=== PATIENT | male | born 1945 | race Caucasian/White ===

== ENCOUNTER 2019-10-09 14:23 | Outpatient (CLI) | payer MEDICARE, SELFPAY ==
--- NOTE | ~2019-10-09 | XR_ITS ---
EXAMINATION: XR chest 2V EXAM DATE: 10/09/2019 14:51 INDICATION: Cough. TECHNIQUE: Frontal and lateral projections of the chest obtained and reviewed. Comparison is made to prior examination from 12/23/2015. FINDINGS: The lungs are clear. There are no pleural effusions. The cardiomediastinal silhouette is within normal limits. There is no pneumothorax suspected. The bones and soft tissues are unremarkab le. There is aortic arterial sclerosis. There is no significant interval change. IMPRESSION: No acute cardiopulmonary findings. Reviewed, dictated and finalized at location A.
== END 2019-10-09 14:24 | disposition home or self-care (01) ==
LOC: ANHIMG 14:31
PROVIDERS: PCP Internal Medicine; Visit Provider Nurse Practitioner
DX: R05 Cough (principal)
CPT/HCPCS: 71046

== ENCOUNTER 2022-02-16 11:32 | Outpatient (CLI) | payer MEDICARE, SELFPAY ==
[2022-02-16 18:41] LABS: Hematocrit 37.3 % (42.0-52.0); Hemoglobin 12.5 g/dL (14.0-18.0); Mean Corpuscular HGB Conc 33.5 g/dl (32-36); Mean Corpuscular Volume 89.4 fl (80-100); Mean Platelet Volume 10.6 fl (7.4-10.4); Platelet Count Result 217 k/mm3 (150-375); Red Blood Count 4.17 M/mm3 (4.6-6.20); Red Cell Distribution Width 12.7 % (11.5-14.5); White Blood Count 10.3 K/mm3 (4.5-10.0)
[2022-02-16 19:14] LABS: Anion Gap 11 mmol/L (8-16); Blood Urea Nitrogen 21 mg/dL (9-20); Calcium 7.9 mg/dL (8.4-10.2); Carbon Dioxide 26 mmol/L (22-30); Chloride 102 mmol/L (98-107); Estimated Glomerular Filt Rate 45; Glucose 184 mg/dL (65-110); Potassium 4.2 mmol/L (3.4-5.0); Sodium 139 mmol/L (137-145)
== END 2022-02-16 11:33 | disposition home or self-care (01) ==
PROVIDERS: PCP Internal Medicine; Visit Provider Internal Medicine
DX: I10 Essential (primary) hypertension (principal); E11.22 Type 2 diabetes mellitus with diabetic chronic kidney disease
CPT/HCPCS: 36415; 80048; 83036; 85027

== ENCOUNTER 2022-06-16 11:19 | Outpatient (CLI) | payer MEDICARE, SELFPAY ==
[2022-06-16 18:10] LABS: Alanine Aminotransferase 16 U/L (6-50); Albumin Level 3.6 g/dL (3.5-5.1); Alkaline Phosphatase 62 U/L (38-126); Anion Gap 5 mmol/L (8-16); Aspartate Amino Transferase 25 U/L (17-59); Bilirubin,Total 0.5 mg/dL (0.2-1.3); Blood Urea Nitrogen 26 mg/dL (9-20); Calcium 7.7 mg/dL (8.4-10.2); Carbon Dioxide 28 mmol/L (22-30); Chloride 105 mmol/L (98-107); Estimated Glomerular Filt Rate 39; Glucose 90 mg/dL (65-110); Potassium 4.3 mmol/L (3.4-5.0); Sodium 138 mmol/L (137-145)
[2022-06-16 19:01] LABS: Basophils Absolute Auto 0.1 K/mm3 (0.0-0.1); Eosinophils Absolute Auto 0.6 K/mm3 (0-0.3); Eosinophils Percent Auto 4.8 % (0-4.4); Hematocrit 38.9 % (42.0-52.0); Immature Granulocyte Absolute 0.13 K/mm3 (0.00-0.031); Immature Granulocyte Percent A 1.1 % (0-0.5); Lymphocytes Absolute Auto 1.96 K/mm3 (0.9-3.2); Lymphocytes Percent Auto 16.9 % (18.3-44.2); Mean Corpuscular HGB Conc 33.4 g/dl (32-36); Mean Corpuscular Hemoglobin 29.5 pg (26-34); Mean Corpuscular Volume 88.4 fl (80-100); Mean Platelet Volume 9.9 fl (7.4-10.4); Monocytes Absolute Auto 1.1 K/mm3 (0.1-0.6); Monocytes Percent Auto 9.2 % (2.6-8.5); Neutrophils Absolute Auto 7.7 K/mm3 (1.3-6.7); Platelet Count Result 231 k/mm3 (150-375); Red Cell Distribution Width 13.1 % (11.5-14.5); White Blood Count 11.6 K/mm3 (4.5-10.0)
[2022-06-16 21:46] LABS: Hemoglobin A1C 6.8 % (<5.7)
== END 2022-06-16 11:20 | disposition home or self-care (01) ==
LOC: ANHGOSHLAB 11:21
PROVIDERS: PCP Internal Medicine; Visit Provider Internal Medicine
DX: D64.9 Anemia, unspecified (principal); E11.22 Type 2 diabetes mellitus with diabetic chronic kidney disease
CPT/HCPCS: 36415; 80053; 82728; 83036; 85025

== ENCOUNTER 2023-05-08 10:34 | Inpatient (IN) | payer MEDICARE, SELFPAY ==
[2023-05-08] VITALS (12 sets, daily range): BP systolic 138–164; BP diastolic 60–76; PULSE 89–105; RESP 16–27; TEMP 36.4; O2SAT 94–100; BMI 22.4
--- NOTE | ~2023-05-08 | US_ITS ---
EXAMINATION:US venous doppler LE BI INDICATION:Elevated d-dimer TECHNIQUE: Multiple grayscale, color flow and Doppler images of the right and left lower extremity de ep venous systems were obtained and reviewed. COMPARISON:No prior studies for comparison. FINDINGS: The common femoral, superficial femoral and popliteal veins demonstrate normal respiratory variation, augmentation and compressibility. Color flow is also seen within the posterior tibial, pe roneal, greater saphenous and profunda veins. IMPRESSION: 1: No lower extremity deep venous thrombosis. Reviewed, dictated and finalized at location B. EL ASSEMBLER
--- NOTE | ~2023-05-08 | NM_ITS ---
EXAMINATION: NM lung vent and perfusion DATE: 05/09/2023 12:47 INDICATION: Chest pain and dyspnea TECHNIQUE: 25.9 mCi xenon-133 by inhalation and 5 mCi Tc-99m MAA by intravenous route. Scintigraphic images of the chest were obtained. COMPARISON: FINDINGS: There is homogeneous radiotracer activity throughout the lungs on the single breath ventilation seque nce. Small perfusion defect at the anterior segment of the right upper lobe. No other perfusion defec ts identified Otherwise relatively homogeneous perfusion throughout the lungs. IMPRESSION: 1. Low probability for pulmonary embolism. Reviewed, dictated and finalized at location A. ARCHITECT
--- NOTE | ~2023-05-08 | XR_ITS ---
EXAMINATION: XR chest 2V DATE: 05/08/2023 11:12 INDICATION: Chest pain, cough and dyspnea TECHNIQUE: frontal and lateral views of the chest were obtained. COMPARISON: Chest radiograph dated 10/09/2019 FINDINGS: Diffuse increased interstitial pattern in the bilateral mid and lower lung zones with a few periphera l Huber B-lines near the costophrenic angles consistent with mild pulmonary edema.. Small bilateral pleural effusions with blunting at the costophrenic angles. Small nodular calcification at the left c ostophrenic angle which could represent either a cause, consultation or sequela of old granulomatous disease. No pneumothorax. The cardiomediastinal silhouette is normal. Chronic mild anterior wedging o f a midthoracic vertebral body with moderate thoracic spondylosis. IMPRESSION: 1. Mild pulmonary edema in the bilateral mid and lower lung zones and very small bilateral pleural ef fusions. Reviewed, dictated and finalized at location A. RIALS ASSISTANT IMPRESSION: 1. Mild pulmonary edema in the bilateral mid and lower lung zones and very smal l bilateral pleural effusions.
--- NOTE | ~2023-05-08 | XR_ITS ---
XR chest 1V portable 05/09/2023 09:23 Indication: Chest pain Procedure: AP portable chest Comparison: Comparison to multiple prior studies sequentially, with oldest reviewed study dated 02/2012. Findings: Heart size normal. Bilateral interstitial infiltrates with peribronchial thickening. No sig nificant effusion. No pneumothorax. Impression: 1: Bilateral interstitial infiltrates with peribronchial thickening which may represent edema or pneu monia. Reviewed, dictated and finalized at location B. INSTALLER Impression: 1: Bilateral interstitial infiltrates with peribronchial thickening which may r epresent edema or pneumonia.
--- NOTE | ~2023-05-08 | US_ITS ---
EXAMINATION: US renal BI DATE: 05/09/2023 20:44 INDICATION: Acute kidney injury. TECHNIQUE: Multiple ultrasound grayscale images of the kidneys were obtained. COMPARISON: None. FINDINGS: The right kidney measures 10.5 x 4.4 x 4.0 cm. The left kidney measures 9.0 x 4.8 x 4.1 cm. The kidne ys demonstrate normal parenchymal echogenicity. There is no hydronephrosis. The bladder is normal. IMPRESSION: 1. Normal kidneys. No hydronephrosis. Reviewed, dictated and finalized at location E. ANICAL INTEGRITY SPECIALIST
--- NOTE | 2023-05-08 10:38 | ECG_ITS ---
Measurements Intervals [place] Rate: 112 P: 57 HI: 96 QRS: 22 QRSD: 102 T: 66 QT: 320 QTc: 438 Interpretive Statements SINUS TACHYCARDIA WITH SHORT HI INTERVAL WANDERING BASELINE ARTIFACT POSSIBLE LEFT ATRIAL ENLARGEMENT [-0.1mV P WAVE IN V1/V2] NONSPECIFIC ST & T-WAVE ABNORMALITY ABNORMAL ECG NO PREVIOUS ECG AVAILABLE FOR COMPARISON Electronically Signed On 05-08-2023 12:11:17 TRIPE SCRAPER by Jaime Tee M.D.
--- NOTE | 2023-05-08 11:17 | ED.CHESTPAIN ---
HPI - Chest Pain General Chief Complaint: Chest Pain <Indio Carlson APRN - Last Filed: 05/08/23 16:43> Stated Complaint: dyspnea/cp <Indio Carlson APRN - Last Filed: 05/08/23 16:43> Time Seen by Provider: 05/08/23 11:16 <Indio Carlson APRN - Last Filed: 05/08/23 16:43> Source: patient <Indio Carlson APRN - Last Filed: 05/08/23 16:43> Mode of arrival: ambulatory <Indio Carlson APRN - Last Filed: 05/08/23 16:43> Limitations: no limitations <Indio Carlson APRN - Last Filed: 05/08/23 16:43> History of Present Illness HPI narrative: Silvano is a 78-year-old male patient presenting to the ER today with complaints of midsternal chest pain and shortness of breath. He reports that the symptoms have been going on for 2 days. Rates the pain 7/10 currently. States that the pain does come and go and is sharp in nature. SpO2 on room air is 90% to 95%. Has productive cough with house phlegm. Denies any known fever or chills. <Indio Carlson APRN - Last Filed: 05/08/23 16:43> Related Data Home Medications: Home Medications Medication Instructions Recorded Confirmed aspirin 81 mg tablet,delayed 81 mg PO DAILY 12/04/19 06/21/22 release (Adult Low Dose Aspirin) <Indio Carlson APRN - Last Filed: 05/08/23 16:43> Allergies/Adverse Reactions: Allergies Allergy/AdvReac Type Severity Reaction Status Date / Time No Known Allergies Allergy Unknown Verified 06/21/22 11:40 <Indio Carlson APRN - Last Filed: 05/08/23 16:43> Review of Systems Review of Systems: Pertinent positives per HPI. Patient denies any fever, chills, rash, headache, visual changes, dizziness, runny nose, sore throat, palpitations, nausea, vomiting, diarrhea, constipation, abdominal pain, or any urinary issues. 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, without long-term current use of insulin Diabetes mellitus with chronic kidney disease, without long-term current use of insulin Elevated serum creatinine Hyperlipidemia due to dietary fat intake Hypertension Peripheral artery disease Renal artery stenosis Stroke 05/12/2007 10/17/2016 02/12/2019 <Indio Carlson APRN - Last Filed: 05/08/23 16:43> Surgical History Surgical History: Surgical History History of tonsillectomy <Indio Carlson APRN - Last Filed: 05/08/23 16:43> Family History Family History: Family History (Updated 05/08/23 @ 17:00 by Aby Lester RN) Mother Family history of diabetes mellitus in first degree relative Cerebrovascular accident Father Family history of emphysema Sibling Family history of malignant neoplasm <Indio Carlson APRN - Last Filed: 05/08/23 16:43> Social History Social History: Social History Smoking packs per day: 0.25 Smoking cigarettes per day: 5.0 Years smoked: 50 Smoking pack-years: 12.50 Smoking status: Current some day smoker Alcohol intake: never Substance use: never Lack of Transportation: No Lack of Food: Never True Current Housing: I Have Housing Concerned About Future Housing: No Difficulty Paying Gas/Electric Bills: No Difficulty Paying for Meds: No Currently Unemployed: No Education: High School Diploma/GED Difficulty w/ Childcare or Family Care: YES Spiritual care concerns: No <Indio Carlson APRN - Last Filed: 05/08/23 16:43> Comments At the time of my signature, I reviewed and agree with the nursing past medical, surgical, social, and family history. There is no
[2023-05-08] MEDS: IPRATROPIUM BR 0.02% INH SOLN 0.5 MG/2.5 ML VIAL INHALATION (11:39)
[2023-05-08] MEDS: ALBUTEROL SULFATE NEB 2.5 MG/3 ML INH INHALATION (11:40)
[2023-05-08 11:45] LABS: Basophils Absolute Auto 0.1 K/mm3 (0.0-0.1); Basophils Percent Auto 0.7 % (0.2-1.2); Eosinophils Absolute Auto 0.1 K/mm3 (0-0.3); Eosinophils Percent Auto 0.3 % (0-4.4); Hematocrit 41.5 % (42.0-52.0); Hemoglobin 13.5 g/dL (14.0-18.0); Immature Granulocyte Absolute 0.12 K/mm3 (0.00-0.031); Immature Granulocyte Percent A 0.7 % (0-0.5); Lymphocytes Absolute Auto 0.74 K/mm3 (0.9-3.2); Lymphocytes Percent Auto 4.5 % (18.3-44.2); Mean Corpuscular HGB Conc 32.5 g/dl (32-36); Mean Corpuscular Hemoglobin 29.2 pg (26-34); Mean Corpuscular Volume 89.8 fl (80-100); Mean Platelet Volume 10.3 fl (7.4-10.4); Monocytes Absolute Auto 1.3 K/mm3 (0.1-0.6); Monocytes Percent Auto 8.1 % (2.6-8.5); Neutrophils Absolute Auto 14.1 K/mm3 (1.3-6.7); Neutrophils Percent Auto 85.7 % (45.5-73.1); Platelet Count Result 289 k/mm3 (150-375); Red Blood Count 4.62 M/mm3 (4.6-6.20); Red Cell Distribution Width 13.4 % (11.5-14.5); White Blood Count 16.4 K/mm3 (4.5-10.0)
[2023-05-08 11:55] LABS: Alanine Aminotransferase 16 U/L (6-50); Albumin Level 4.3 g/dL (3.5-5.1); Alkaline Phosphatase 72 U/L (38-126); Anion Gap 13 mmol/L (8-16); Aspartate Amino Transferase 22 U/L (17-59); Bilirubin,Total 0.8 mg/dL (0.2-1.3); Blood Urea Nitrogen 33 mg/dL (9-20); Calcium 8.7 mg/dL (8.4-10.2); Carbon Dioxide 18 mmol/L (22-30); Chloride 106 mmol/L (98-107); Estimated CRCL calculation 22 ml/min; Estimated Glomerular Filt Rate 28; Glucose 156 mg/dL (65-110); Lipase 138 U/L (23-300); Potassium 4.5 mmol/L (3.4-5.0); Sodium 137 mmol/L (137-145)
[2023-05-08 11:58] LABS: Prothrombin Time 13.7 Seconds (11.1-14.7)
[2023-05-08] MEDS: ASPIRIN 81 MG CHEWABLE TABLET 324 MG PO (11:58)
[2023-05-08 12:08] LABS: D Dimer 1.12 ug/mL (<0.48)
[2023-05-08 12:13] LABS: Troponin I 0.392 ng/mL (0.000-0.034)
[2023-05-08 12:14] LABS: NT Pro B Type Natriuretic Pept 6630 pg/mL (19.9-100)
[2023-05-08] MEDS: NITROGLYCERIN OINTMENT 1 INCH DOSE TRANSDERM (12:26)
[2023-05-08] MEDS: FUROSEMIDE INJ 40 MG/4 ML VIAL IV PUSH (12:57)
[2023-05-08 15:46] LABS: Troponin I 0.754 ng/mL (0.000-0.034)
--- NOTE | 2023-05-08 16:25 | ECG_ITS ---
Measurements Intervals [place] Rate: 104 P: 55 SC: 124 QRS: 16 QRSD: 101 T: 234 QT: 334 QTc: 441 Interpretive Statements SINUS TACHYCARDIA POSSIBLE LEFT ATRIAL ENLARGEMENT [-0.1mV P WAVE IN V1/V2] LEFT VENTRICULAR HYPERTROPHY WITH SECONDARY REPOLARIZATION ABNORMALITY ABNORMAL ECG COMPARED TO ECG 05/08/2023 10:42:31 NO SIGNIFICANT CHANGES Electronically Signed On 05-09-2023 13:06:31 FIRE TRUCK DRIVER by Cody Arreaga M.D.
--- NOTE | 2023-05-08 16:32 | PC.NURSE ---
Repeat EKG done at [address] Erivn.
--- NOTE | 2023-05-08 16:44 | ADMGEN ---
This patient, Silvano Duval, was admitted to IMU Room 214-01. Patient/family oriented to hospital policies and general routines including ID bracelet, bed and alarms, visiting hours, pain management, procedures, bathroom and other care routines, personal items, smoking policy, room service/diet, and visiting hours. Information on how to activate the Rapid Response Team has been discussed. Patient/Family are encouraged to report perceived risks to care and to ask questions if they do not understand what they are told or what they should do.
[2023-05-08] MEDS: HEPARIN SODIUM 5,000 UNITS/ML VIAL 4000 UNITS IV PUSH (17:40)
[2023-05-08] MEDS: HEPARIN SOD/D5W 100 UNITS/ML 25,000 UNITS/250 ML BAG 8 UNITS IV CONT (17:41)
[2023-05-08 18:22] LABS: Partial Thromboplastin Time 30.1 SECONDS (22.3-36.8)
--- NOTE | 2023-05-08 18:28 | PM.IMHP ---
H&P: HPI History of Present Illness Date/Time: 05/08/23 16:45 Chief Complaint: Chest pain and shortness of breath. Narrative: This is a very pleasant 78-year-old male smoker with history of stroke, peripheral vascular disease, chronic kidney disease, type 2 diabetes mellitus, hypertension, and hyperlipidemia who presented to the emergency department via private vehicle for evaluation of chest pain and shortness of breath. The patient provides the following history. Two nights ago while lying in bed trying to fall asleep he developed a tightness in the mid chest region associated with mild shortness of breath. His symptoms lasted several hours before resolving. He has had a couple of similar episodes occur since that time and it seems to occur mostly when he is lying down. He has also noted edema of the lower legs over the past 1 week or so. Today his symptoms seem to be worse and lasted longer than 4 so he came in for evaluation. He denies syncope, near syncope, pleuritic pain, resting shortness of breath, nausea, vomiting, sweats, and calf pain. He was afebrile on arrival with stable vital signs. Labs were significant for a WBC count of 16.4, creatinine 2.30, troponin 0.392, proBNP 6630. Chest x-ray showed mild pulmonary edema and small effusions. EKG shows sinus tachycardia with short UT interval and some nonspecific T-wave abnormalities. He was given aspirin 324 mg, furosemide 40 mg IV, and he has been started on heparin drip. At the time my evaluation he is resting comfortably and has no complaints. On review of his medications it looks like he had previously been prescribed carvedilol, clopidogrel, and atorvastatin however he stopped taking no several months ago as he thought he was on too many medications. Review of Systems Review of Systems: Twelve systems were reviewed. No fever, chills, or sweats. He has a mild cough that is not productive. No sinus congestion or sore throat. Denies sensations of racing heart and palpitations. No recent travel. No history of venous thromboembolism. He has chronic claudication which is unchanged. No resting extremity pain, paresthesias, skin color, or temperature changes. Except as documented, all other systems were reviewed and are negative. [facility] Past Medical History Medical History (Updated 05/08/23 @ 23:43 by Keena Ortiz PA-C) Anxiety Carotid stenosis Chronic kidney disease Hyperlipidemia due to dietary fat intake Hypertension Peripheral artery disease Renal artery stenosis Stroke 05/12/2007 10/17/2016 02/12/2019 Tobacco dependence Type 2 diabetes mellitus Surgical History Surgical History History of tonsillectomy Family History Family History Mother Family history of diabetes mellitus in first degree relative Cerebrovascular accident Father Family history of emphysema Sibling Family history of malignant neoplasm Social History Social History (Updated 05/08/23 @ 23:40 by Keena Ortiz PA-C) Social History: Surrogate medical decision maker: Cheryl Duval, spouse. Code status: Full code. Smoking packs per day: 0.25 Smoking cigarettes per day: 5.0 Years smoked: 50 Smoking pack-years: 12.50 Smoking status: Current some day smoker Alcohol intake: never Substance use: never Lack of Transportation: No Lack of Food: Never True Current Housing: I Have Housing Concerned About Future Housing: No Difficulty Paying Gas/Electric Bills: No Difficulty Paying for Meds: No Currently Unemployed: No Education: High School Diploma/GED Difficulty w/ Childcare or Family Care: YES Spiritual care concerns: No Meds Home Medications and Allergies Home Medications Medication Instructions Recorded Confirmed Type aspirin 81 mg tablet,delayed 81 mg PO DAILY 12/04/19 05/08/23 History release (Adult Low Dose Aspirin) nolano
[2023-05-08 19:42] LABS: Glucose Point of Care 168 mg/dl (65-105)
[2023-05-08 21:00] LABS: Hemoglobin A1C 6.5 % (<5.7)
[2023-05-09] VITALS (15 sets, daily range): BP systolic 131–153; BP diastolic 56–68; PULSE 85–108; RESP 16–24; TEMP 36.2–36.9; O2SAT 92–98
[2023-05-09 00:29] LABS: Partial Thromboplastin Time 44.4 SECONDS (22.3-36.8)
[2023-05-09] MEDS: CLOPIDOGREL BISULFATE 75 MG TABLET PO ×2 (01:03→20:45)
[2023-05-09] MEDS: HEPARIN SODIUM 5,000 UNITS/ML VIAL 4000 UNITS IV PUSH (01:05)
[2023-05-09 07:03] LABS: Basophils Absolute Auto 0.1 K/mm3 (0.0-0.1); Basophils Percent Auto 0.5 % (0.2-1.2); Eosinophils Absolute Auto 0.1 K/mm3 (0-0.3); Hematocrit 35.9 % (42.0-52.0); Hemoglobin 12.1 g/dL (14.0-18.0); Immature Granulocyte Absolute 0.07 K/mm3 (0.00-0.031); Immature Granulocyte Percent A 0.6 % (0-0.5); Lymphocytes Absolute Auto 0.97 K/mm3 (0.9-3.2); Lymphocytes Percent Auto 7.7 % (18.3-44.2); Mean Corpuscular HGB Conc 33.7 g/dl (32-36); Mean Corpuscular Volume 89.1 fl (80-100); Mean Platelet Volume 10.4 fl (7.4-10.4); Monocytes Absolute Auto 1.4 K/mm3 (0.1-0.6); Monocytes Percent Auto 10.9 % (2.6-8.5); Neutrophils Percent Auto 79.3 % (45.5-73.1); Platelet Count Result 260 k/mm3 (150-375); Red Blood Count 4.03 M/mm3 (4.6-6.20); Red Cell Distribution Width 13.3 % (11.5-14.5); White Blood Count 12.6 K/mm3 (4.5-10.0)
[2023-05-09 07:19] LABS: Alanine Aminotransferase 14 U/L (6-50); Albumin Level 3.5 g/dL (3.5-5.1); Alkaline Phosphatase 57 U/L (38-126); Anion Gap 12 mmol/L (8-16); Aspartate Amino Transferase 32 U/L (17-59); Bilirubin,Total 0.8 mg/dL (0.2-1.3); Blood Urea Nitrogen 38 mg/dL (9-20); Calcium 8.1 mg/dL (8.4-10.2); Carbon Dioxide 20 mmol/L (22-30); Chloride 104 mmol/L (98-107); Estimated CRCL calculation 21 ml/min; Estimated Glomerular Filt Rate 26; Glucose 67 mg/dL (65-110); Magnesium 1.6 mg/dL (1.6-2.3); Potassium 3.7 mmol/L (3.4-5.0); Sodium 136 mmol/L (137-145)
[2023-05-09 08:33] LABS: Glucose Point of Care 46 mg/dl (65-105)
[2023-05-09] MEDS: PERFLUTREN LIPID MICROSPHERES 1.5 ML VIAL DILUTED TO 10 ML TOTAL VOLUME IV PUSH (08:52)
--- NOTE | 2023-05-09 08:52 | PC.NURSE ---
Pt SOB with expiratory wheeze. Senia RT made aware - sheet writer requested PRN Albuterol inhaler to be given. O2 91% on 2L NC. Increased to 4L NC. BG 46, 4 oz of apple juice given. Rates chest pressure to left side 7/10. Describes as moderate pain verses severe that worsens with activity. Mag 1.6. Detailed message left with Dr. Tee. Detailed message left with Magdalena Novak, [facility] provider.
[2023-05-09] MEDS: ALBUTEROL SULFATE (*SP) AEROSOL 1 PUFF 2 PUFF INHALATION (08:55)
--- NOTE | 2023-05-09 09:07 | ECG_ITS ---
Measurements Intervals [place] Rate: 107 P: 64 IN: 104 QRS: 21 QRSD: 106 T: 148 QT: 333 QTc: 445 Interpretive Statements SINUS TACHYCARDIA WITH SHORT IN INTERVAL LEFT VENTRICULAR HYPERTROPHY WITH SECONDARY REPOLARIZATION ABNORMALITY ABNORMAL ECG COMPARED TO ECG 05/08/2023 16:25:50 NO SIGNIFICANT CHANGES Electronically Signed On 05-09-2023 15:14:08 STUDENT SERVICES REPRESENTATIVE by Cody Arreaga M.D.
[2023-05-09] MEDS: NITROGLYCERIN SL 0.4 MG TABLET SUBLINGUAL (09:19)
[2023-05-09 09:20] LABS: Glucose Point of Care 91 mg/dl (65-105)
[2023-05-09] MEDS: MAGNESIUM SULF 2 GM/WATER 50ML 2 GM/50 ML BAG IVPB (09:20)
--- NOTE | 2023-05-09 09:31 | PC.NURSE ---
Symptoms discussed with Dinah Wyman NP and Magdalena Singh, [facility] provider. Subliqual nitro x 1 given. Chest pain rated 0/10. EKG and CXR completed. Wheeze not no longer audible while standing at bedside.
[2023-05-09] MEDS: TAMSULOSIN HCL 0.4 MG CAPSULE PO (09:38)
[2023-05-09] MEDS: FLUTICASONE PROPIONATE 0.05% NA SPR 16 GM BTL (*BKC) 2 SPRAY NASAL (09:38)
[2023-05-09] MEDS: amLODIPine BESYLATE 5 MG TABLET 10 MG PO (09:38)
[2023-05-09] MEDS: ASPIRIN 81 MG ENTERIC TABLET PO (09:38)
[2023-05-09] MEDS: PANTOPRAZOLE 40 MG TABLET PO (09:38)
--- NOTE | 2023-05-09 09:50 | PM.CNCAR ---
Assessment and Plan Assessment and plan (1) Non-ST elevation myocardial infarction (NSTEMI): Code(s): I21.4 - Non-ST elevation (NSTEMI) myocardial infarction Status: Acute Assessment and Plan: Presents with acute onset of chest pain and shortness of breath. His troponin levels are elevated at 0.392, 0.754, and 1.270. EKG shows some evidence of lateral ischemia with ST depression in leads V4 through V6. His chest pain is nitro responsive and he is currently chest pain free. Ultimately, plan to proceed with coronary angiogram when he is able to lie flat and ideally with renal function looking a bit better. For now, will manage medically.. Continue heparin drip Continue aspirin, statin, Plavix Start Toprol XL 25mg daily Nitro paste Check echo Continue telemetry Check BMP this afternoon He is currently clinically stable and free from chest pain. If he has recurrent pain or becomes hemodynamically unstable then we can proceed to cardiac cath today with the understanding that his renal function may worsen with contrast administration. Will give 1 dose of IV furosemide now. Currently unable to lay flat because of orthopnea, so not an appropriate candidate for cath today. Hopefully will be appropriate for coronary angiogram tomorrow (2) Congestive heart failure: Code(s): I50.9 - Heart failure, unspecified Status: Acute Assessment and Plan: Presents with shortness of breath and has evidence of CHF on chest X-ray. Was given one dose of IV furosemide in the emergency department and reports subsequent improvement of breathing. Will give another dose of IV furosemide now. May require further diuresis but careful balance with renal function. Check BMP this afternoon and again in the morning Echo pending. Further recommendations to follow. (3) Bewhx-cu-whjzvhq kidney injury: Code(s): N17.9 - Acute kidney failure, unspecified; N18.9 - Chronic kidney disease, unspecified Status: Acute Assessment and Plan: Acute kidney injury with stage III CKD. (4) Hypertension: Code(s): I10 - Essential (primary) hypertension Status: Acute Assessment and Plan: Above goal currently but holding home lisinopril because of ALLEN. Added metoprolol a above. Further adjustments can be made depending on renal function (5) Hypomagnesemia: Code(s): E83.42 - Hypomagnesemia Status: Acute Assessment and Plan: 2g IV Mag x 1. Repeat Mag with a.m. labs History of Present Illness History of Present Illness Consult date/time: 05/09/23 09:32 Requesting physician: Indio Carlson APRN Consult reason: chest pain and shortness of breath Reason For Visit: nstemi,chf,kidney failure Narrative: Silvano Duval is a 78-year-old patient with type 2 diabetes, carotid occlusion, peripheral arterial disease, atrial fibrillation, hyperlipidemia, and renal artery stenosis. He also has a history of stroke in 2008 and has some residual left-sided weakness. He is hospitalized now because of sudden onset of chest pain shortness of breath on Tuesday. Patient states he developed shortness of breath and midsternal chest tightness on Tuesday evening when he lay down for bed. Symptoms persisted for a couple of hours, therefore, he proceeded to the emergency department. His chest pain resolved in the emergency department with administration of nitroglycerin. Since that time, he had a couple of intermittent episodes of shortness of breath and chest discomfort when attempting to lie down flat. This morning, he had another episode of acute chest pain with left-sided chest pain he rated as 7/10 and worsening shortness of breath. His chest pain once again resolved with administration of sublingual nitroglycerin. At the time I am seeing him, he denies any chest pain but does still have some mild shortness of breath. He denies any known cardiac history including coronary artery disease, conge
[2023-05-09] MEDS: FUROSEMIDE INJ 40 MG/4 ML VIAL 20 MG IV PUSH ×2 (11:15→17:12)
[2023-05-09 11:17] LABS: Anion Gap 10 mmol/L (8-16); Blood Urea Nitrogen 39 mg/dL (9-20); Calcium 8.4 mg/dL (8.4-10.2); Carbon Dioxide 22 mmol/L (22-30); Chloride 103 mmol/L (98-107); Estimated CRCL calculation 21 ml/min; Estimated Glomerular Filt Rate 26; Glucose 80 mg/dL (65-110); Potassium 4.3 mmol/L (3.4-5.0); Sodium 135 mmol/L (137-145)
[2023-05-09] MEDS: NITROGLYCERIN OINTMENT 1 INCH DOSE TRANSDERM ×2 (11:17→17:13)
--- NOTE | 2023-05-09 12:05 | IVDEFINITY ---
Prior to administration of IV Definity the patient was educated on the risks and benefits of the imaging enhancing agent including potential adverse side effects. The patient verbalized understanding. Allergies were verified. No exclusion criteria were identified and at least one of the following inclusion criteria were met: 1) physician request, 2) patient technically difficult to image (per the [place] [employer]chocardi[employer] guidelines of two or more segments not discernable within the apical view), or 3) questionable left ventricular function. ?
[2023-05-09 12:43] LABS: Glucose Point of Care 74 mg/dl (65-105)
[2023-05-09 13:12] LABS: Anion Gap 11 mmol/L (8-16); Blood Urea Nitrogen 39 mg/dL (9-20); Calcium 8.6 mg/dL (8.4-10.2); Carbon Dioxide 23 mmol/L (22-30); Chloride 102 mmol/L (98-107); Estimated CRCL calculation 21 ml/min; Estimated Glomerular Filt Rate 26; Glucose 100 mg/dL (65-110); Partial Thromboplastin Time 57.2 SECONDS (22.3-36.8); Potassium 4.1 mmol/L (3.4-5.0); Sodium 136 mmol/L (137-145)
--- NOTE | 2023-05-09 14:25 | PC.NURSE ---
Heparin protocol states to give 3000 units of Heparin for PTT 55-70 seconds. Order for 2,500 units in chart. Magdalena Novak made aware. Order modified, 2,500 units changed to 3,000 units for PTT between 55-70 seconds.
--- NOTE | 2023-05-09 14:57 | PM.IMPN ---
Progress Note: A&P Assessment and Plan (1) Non-ST elevation myocardial infarction (NSTEMI): Code(s): I21.4 - Non-ST elevation (NSTEMI) myocardial infarction Status: Acute Assessment and Plan: EKG showed some nonspecific ST T-wave changes and his troponin has been trending upwards. History concerning for underlying coronary artery disease though pulmonary embolism is considered. V/Q scan low prob for PE currently on a heparin drip, will transition as appropriate PER CARDIO: Continue aspirin, statin, Plavix Start Toprol XL 25mg daily Nitro paste Check echo Continue telemetry Serial BMP He is currently clinically stable and free from chest pain. If he has recurrent pain or becomes hemodynamically unstable then we can proceed to cardiac cath today with the understanding that his renal function may worsen with contrast administration. s/p dose of IV furosemide (2) Congestive heart failure: Code(s): I50.9 - Heart failure, unspecified Status: Acute Assessment and Plan: cardiology consulted: May require further diuresis but careful balance with renal function. serial BMP Echo pending. Further recommendations to follow. (3) Cylrz-tc-jzlqvus kidney injury: Code(s): N17.9 - Acute kidney failure, unspecified; N18.9 - Chronic kidney disease, unspecified Status: Acute Assessment and Plan: Monitor strict I/O. Renal ultrasound ordered. All medications will be renally dosed. (4) Type 2 diabetes mellitus: Code(s): E11.9 - Type 2 diabetes mellitus without complications Status: Chronic Assessment and Plan: Hold glipizide given worsening renal function. Initiate sliding scale insulin, Accu-Cheks, and hypoglycemic protocol. (5) Hypertension: Code(s): I10 - Essential (primary) hypertension Status: Chronic Assessment and Plan: hold lisinopril, continue metoprolol as ordered Subjective Date/time seen: 05/09/23 14:57 Interval history: Patient was in acute stress upon exam this morning. He was reporting worsening of his left sided chest pressure and tachypneic. He was requiring additional oxygen and quite uncomfortable. Cardiology consulted SISSY and followed recommendations for treatment and evaluation as noted in A&P. VQ scan done to rule out PE, which showed low probability of PE. US Doppler to rule out DVT have not resulted yet, will continue heparin drip and transition pending results. ECHO ordered. Unable to lay back comfortably so cardiology does not feel appropriate for cath today, will re-evaluate tomorrow. Need to improve kidney function prior to further testing. He is now more comfortable, will continue to closely monitor and follow cardiology for further treatment. Review of Systems Review of Systems: Twelve systems were reviewed. No fever, chills, or sweats. He has a mild cough that is not productive. No sinus congestion or sore throat. Denies sensations of racing heart and palpitations. No recent travel. No history of venous thromboembolism. He has chronic claudication which is unchanged. No resting extremity pain, paresthesias, skin color, or temperature changes. Except as documented, all other systems were reviewed and are negative. Exam Narrative: General: Well-developed, nontoxic-appearing male sitting up in bed in acute distress at time of exam. HEENT: Normocephalic, atraumatic. Wearing corrective lenses. PERRL, EOMI. Sclera anicteric. Oral mucosa moist. Neck: Supple. No JVD. Respiratory: Respirations are labored and tachy. Course crackles heard at the bases, with expiratory wheezing. Cardiovascular: Tachy with S1-S2. Chest: No tenderness to palpation over the chest wall. Gastrointestinal: Abdomen is soft, nontender, and nondistended with positive bowel sounds. Skin: Warm and dry. No rash or lesions on limited exam. Extremities: No cyanosis or clubbing. 1+ lower extremity edema, sof
[2023-05-09] MEDS: HEPARIN SODIUM 5,000 UNITS/ML VIAL 3000 UNITS IV PUSH ×2 (15:14→21:48)
--- NOTE | 2023-05-09 15:15 | PC.NURSE ---
Patient back from imaging with heparin gtt infusing. No distress noted. Denies chest pain at this time.
[2023-05-09] MEDS: ATORVASTATIN 40 MG TABLET PO (17:14)
[2023-05-09] MEDS: HEPARIN SOD/D5W 100 UNITS/ML 25,000 UNITS/250 ML BAG 12 UNITS IV CONT (17:15)
[2023-05-09 17:21] LABS: Glucose Point of Care 121 mg/dl (65-105)
[2023-05-09 20:37] LABS: Glucose Point of Care 134 mg/dl (65-105)
[2023-05-09 21:41] LABS: Partial Thromboplastin Time 65.2 SECONDS (22.3-36.8)
--- NOTE | 2023-05-09 23:47 | ECHO_ITS ---
Patient Info Name: Silvano Duval Age: 78 years : 1945 Gender: Male Ht: 66 in Wt: 139 lbs BSA: 1.72 m2 HR: 101 bpm BP: 151 / 68 mmHg Heart Rhythm: Tachycardia Technical Quality: Fair Exam Date: 05/09/2023 8:23 AM Exam Location: Echo Lab Patient Status: Inpatient Admit Date: 05/08/2023 Staff Ordering Physician: Keena Ortiz PA-C Porcelain Mixer: Manda Dong RDCS Attending Provider: David Solorio MD Referring Physician: Angel OCONNELL; Exam Type: CA echo dop color flow w con Study Info Indications - NON STEMI Complete two-dimensional, color flow and Doppler transthoracic echocardiogram is performed with contrast to opacify the left ventricle and to improve the deliniation of the left ventricle endocardial borders. Contrast/Agitated Saline Contrast/Ag. Saline: Definity Amount: 2.00 ml Administered By: Manda Dong RDCS Existing IV Access: Yes IV Access Condition: patent with no signs of infiltration Summary 1. Definity contrast used to improve exam quality. 2. Mild global left ventricular systolic dysfunction ejection fraction 40-45%. 3. Moderate concentric left ventricular hypertrophy. 4. Sclerotic but nonstenotic aortic valve. 5. Compared with examination from 2017 left ventricular systolic function is reduced. Left Ventricle Left ventricular chamber dimension is mildly enlarged. Left ventricular systolic function is mildly reduced, estimated at 40-45%. There is moderate concentric increased left ventricular wall thickness. The left ventricular diastolic function is grade I diastolic dysfunction. Right Ventricle Right ventricular chamber dimension is normal. Left Atria Left atrial chamber dimension is mildly enlarged. Right Atria Right atrial chamber dimension is normal. Aortic Valve The aortic valve is trileaflet. There is mild aortic valve sclerosis. Pulmonic Valve The pulmonic valve is not well visualized. Mitral Valve The mitral valve has normal leaflets. Tricuspid Valve The tricuspid valve leaflets are not well visualized. Pericardium/Pleural The pericardium appears normal. Aorta The aortic root size at the sinus of Valsalva is normal. Left Ventricular Outflow Tract Name Value Normal LVOT 2D LVOT Diameter 1.97 cm LVOT Doppler LVOT Peak Gradient 3 mmHg LVOT Mean Gradient 1 mmHg LVOT VTI 14.58 cm LVOT VTI/AV VTI Ratio 0.55 LVOT Stroke Volume 44.48 ml LVOT CO 4.82 l/min LVOT CI 2.81 L/min/m2 Pulmonic Valve Name Value Normal RVOT Doppler RVOT Peak Gradient 4 mmHg PV Doppler PV Peak Gradient 7 mmHg Mitral Valve ------
[2023-05-10] VITALS (19 sets, daily range): BP systolic 137–152; BP diastolic 53–70; PULSE 71–97; RESP 16–20; TEMP 36.5–37.1; O2SAT 89–98
[2023-05-10] MEDS: NITROGLYCERIN OINTMENT 1 INCH DOSE TRANSDERM ×5 (01:55→23:55)
[2023-05-10 05:29] LABS: Hematocrit 35.8 % (42.0-52.0); Hemoglobin 11.6 g/dL (14.0-18.0); Mean Corpuscular HGB Conc 32.4 g/dl (32-36); Mean Corpuscular Hemoglobin 29.4 pg (26-34); Mean Corpuscular Volume 90.6 fl (80-100); Mean Platelet Volume 10.6 fl (7.4-10.4); Platelet Count Result 228 k/mm3 (150-375); Red Blood Count 3.95 M/mm3 (4.6-6.20); Red Cell Distribution Width 13.4 % (11.5-14.5); White Blood Count 11.7 K/mm3 (4.5-10.0)
[2023-05-10 05:37] LABS: Magnesium 2.2 mg/dL (1.6-2.3)
[2023-05-10 05:43] LABS: Anion Gap 10 mmol/L (8-16); Blood Urea Nitrogen 44 mg/dL (9-20); Calcium 7.9 mg/dL (8.4-10.2); Carbon Dioxide 22 mmol/L (22-30); Chloride 103 mmol/L (98-107); Estimated CRCL calculation 20 ml/min; Estimated Glomerular Filt Rate 25; Glucose 101 mg/dL (65-110); Potassium 3.8 mmol/L (3.4-5.0); Sodium 135 mmol/L (137-145)
[2023-05-10 05:49] LABS: Partial Thromboplastin Time 176.4 SECONDS (22.3-36.8)
[2023-05-10] MEDS: ASPIRIN 81 MG ENTERIC TABLET PO (08:51)
--- NOTE | 2023-05-10 08:51 | PM.IMPN ---
Progress Note: A&P Assessment and Plan (1) Non-ST elevation myocardial infarction (NSTEMI): Code(s): I21.4 - Non-ST elevation (NSTEMI) myocardial infarction Status: Acute Assessment and Plan: EKG showed some nonspecific ST T-wave changes and his troponin has been trending upwards. History concerning for underlying coronary artery disease though pulmonary embolism is considered. V/Q scan low prob for PE currently on a heparin drip, will transition as appropriate PER CARDIO: Continue aspirin, statin, Plavix Start Toprol XL 25mg daily Nitro paste Check echo Continue telemetry Serial BMP He is currently clinically stable and free from chest pain. If he has recurrent pain or becomes hemodynamically unstable then we can proceed to cardiac cath today with the understanding that his renal function may worsen with contrast administration. s/p dose of IV furosemide 05/10: Will see if cards wants to diuresis again today. No cath today d/t renal function. (2) Congestive heart failure: Code(s): I50.9 - Heart failure, unspecified Status: Acute Assessment and Plan: cardiology consulted: May require further diuresis but careful balance with renal function. serial BMP Echo pending. Further recommendations to follow 05/10: ECHO results as followed, Summary ? 1. Definity contrast used to improve exam quality. ? 2. Mild global left ventricular systolic dysfunction ejection fraction 40-45%. ? 3. Moderate concentric left ventricular hypertrophy. ? 4. Sclerotic but nonstenotic aortic valve. ? 5. Compared with examination from 2017 left ventricular systolic function is reduced. (3) Ecxcf-eg-qhnoagw kidney injury: Code(s): N17.9 - Acute kidney failure, unspecified; N18.9 - Chronic kidney disease, unspecified Status: Acute Assessment and Plan: Monitor strict I/O. Renal ultrasound ordered. All medications will be renally dosed. 05/10: Slight increase of 2.5 from 2.4 after diuresis. (4) Type 2 diabetes mellitus: Code(s): E11.9 - Type 2 diabetes mellitus without complications Status: Chronic Assessment and Plan: Hold glipizide given worsening renal function. Initiate sliding scale insulin, Accu-Cheks, and hypoglycemic protocol. 05/10: fasting glucose is 101 this am. (5) Hypertension: Code(s): I10 - Essential (primary) hypertension Status: Chronic Assessment and Plan: hold lisinopril, continue metoprolol as ordered 05/10: Continue to hold lisinopril 2/2 renal function. Blood pressure have been reviewed and are stable. Plan Feeding:heart healthy diet Analgesia:Tylenol Thromboembolic prophylaxis: heparin gtt Ulcer prophylaxis: PPI Glycemic control: SSI, ac/hs accu checks Bowel regimen: prn miralax Lines: PIV Antibiotics:n/a Disposition: home when medically cleared by cardiology and off of oxygen Subjective Date/time seen: 05/10/23 08:51 Interval history: HPI obtained from the chart, This is a very pleasant 78-year-old male smoker with history of stroke, peripheral vascular disease, chronic kidney disease, type 2 diabetes mellitus, hypertension, and hyperlipidemia who presented to the emergency department via private vehicle for evaluation of chest pain and shortness of breath. The patient provides the following history. Two nights ago while lying in bed trying to fall asleep he developed a tightness in the mid chest region associated with mild shortness of breath. His symptoms lasted several hours before resolving. He has had a couple of similar episodes occur since that time and it seems to occur mostly when he is lying down. He has also noted edema of the lower legs over the past 1 week or so. Today his symptoms seem to be worse and lasted longer than 4 so he came in for evaluation. He denies syncope, near syncope, pleuritic pain, resting shortness of breath, nausea, vomiting, sweats, and calf pain.
[2023-05-10] MEDS: TAMSULOSIN HCL 0.4 MG CAPSULE PO (08:52)
[2023-05-10] MEDS: amLODIPine BESYLATE 5 MG TABLET 10 MG PO (08:52)
[2023-05-10] MEDS: PANTOPRAZOLE 40 MG TABLET PO (08:52)
[2023-05-10] MEDS: METOPROLOL SUCCINATE EXT REL 25 MG TABCR PO (08:52)
[2023-05-10] MEDS: FLUTICASONE PROPIONATE 0.05% NA SPR 16 GM BTL (*BKC) 2 SPRAY NASAL (08:53)
[2023-05-10 09:19] LABS: Glucose Point of Care 99 mg/dl (65-105)
[2023-05-10] MEDS: ALBUTEROL SULFATE (*SP) AEROSOL 1 PUFF 2 PUFF INHALATION (09:55)
--- NOTE | 2023-05-10 10:26 | PM.PNCARD ---
Progress Note: A&P Assessment and Plan (1) Non-ST elevation myocardial infarction (NSTEMI): Code(s): I21.4 - Non-ST elevation (NSTEMI) myocardial infarction Status: Acute Assessment and Plan: Presents with acute onset of chest pain and shortness of breath. His troponin levels are elevated at 0.392, 0.754, and 1.270. EKG shows some evidence of lateral ischemia with ST depression in leads V4 through V6. His chest pain is nitro responsive and he is currently chest pain free. Ultimately, plan to proceed with coronary angiogram when he is able to lie flat and ideally with renal function looking a bit better. For now, will manage medically.. Continue heparin drip for now Continue aspirin, statin, Plavix Continue Toprol XL 25mg daily Nitro paste Continue telemetry Check BMP daily He is currently clinically stable and free from chest pain Hopefully renal function will be improved and he will be appropriate for coronary angiogram tomorrow (2) Congestive heart failure: Qualifiers: Heart failure type: systolic Code(s): I50.9 - Heart failure, unspecified Status: Acute Assessment and Plan: Presents with shortness of breath and has evidence of CHF on chest X-ray. Was given one dose of IV furosemide in the emergency department and reports subsequent improvement of breathing. Rec's 20mg IV furosemide x 2 yesterday because of shortness of breath, orthopnea, and pulmonary edema on CXR Shortness of breath and orthopnea resolved. Pulmonary exam improved today. No further diuresis recommended at this time. Echo shows mildly reduced LVSF with EF 40-45%. Can initiate medical therapy when renal function improves. (3) Kghsl-dw-sttzeym kidney injury: Code(s): N17.9 - Acute kidney failure, unspecified; N18.9 - Chronic kidney disease, unspecified Status: Acute Assessment and Plan: Acute kidney injury with stage III CKD. Will check BMP this afternoon and may give gentle fluid resuscitation overnight (4) Hypertension: Code(s): I10 - Essential (primary) hypertension Status: Chronic Assessment and Plan: Above goal currently but holding home lisinopril because of ALLEN. Added metoprolol a above. Further adjustments can be made depending on renal function (5) Hypomagnesemia: Code(s): E83.42 - Hypomagnesemia Status: Acute Assessment and Plan: Resolved Subjective Date/time seen: 05/10/23 10:26 Interval history: Cardiology follow up for NSTEMI, CHF He is feeling better today. Not short of breath and was able to lie flat to sleep last night. Does still report wheezing. He denies any chest pain. He is becoming frustrated that he is still in the hospital and wants to go home as soon as possible. Discussed plan for possible angiogram tomorrow if renal function improves. Review of Systems Review of Systems: All systems reviewed & are unremarkable except as noted in HPI and below Exam Const: General: comfortable, no acute distress, alert and awake Orientation/consciousness: patient oriented x3 HENMT: Head: normal to inspection Eyes: General: appearance normal, both eyes and all related structures Pupils: Equal, round and reactive pupils present Neck: Neck: normal visual inspection, supple and no JVD Carotids: bruit Resp: Effort & Inspection: normal respiratory effort Auscultation: not clear to auscultation bilaterally, no crackles, no rales and wheezes throughout Cardio: Rate: regular rate Rhythm: regular rhythm Heart sounds: S1 normal heart sound present, S2 normal heart sound present and no murmurs GI: Auscultation: normal bowel sounds Skin: General skin exam: normal color Neuro: General: patient oriented x3 Cranial nerves: Yes Equal, round and reactive pupils present Extrem: General: no edema Psych: Appearance: grossly normal Mental Status: mental status grossly normal Objective Data Vital Signs Vital Sig
[2023-05-10 11:55] LABS: Glucose Point of Care 97 mg/dl (65-105)
[2023-05-10 13:17] LABS: Basophils Absolute Auto 0.1 K/mm3 (0.0-0.1); Basophils Percent Auto 0.5 % (0.2-1.2); Eosinophils Absolute Auto 0.2 K/mm3 (0-0.3); Hematocrit 34.4 % (42.0-52.0); Hemoglobin 11.5 g/dL (14.0-18.0); Immature Granulocyte Percent A 0.9 % (0-0.5); Lymphocytes Absolute Auto 1.08 K/mm3 (0.9-3.2); Lymphocytes Percent Auto 9.8 % (18.3-44.2); Mean Corpuscular HGB Conc 33.4 g/dl (32-36); Mean Corpuscular Hemoglobin 29.8 pg (26-34); Mean Corpuscular Volume 89.1 fl (80-100); Mean Platelet Volume 10.6 fl (7.4-10.4); Monocytes Absolute Auto 1.1 K/mm3 (0.1-0.6); Monocytes Percent Auto 10.1 % (2.6-8.5); Neutrophils Absolute Auto 8.5 K/mm3 (1.3-6.7); Neutrophils Percent Auto 76.7 % (45.5-73.1); Platelet Count Result 210 k/mm3 (150-375); Red Blood Count 3.86 M/mm3 (4.6-6.20); Red Cell Distribution Width 13.2 % (11.5-14.5)
--- NOTE | 2023-05-10 13:17 | P.CDI_ITS ---
Acute on chronic diastolic heart failure CDI Query Clarification Request CHF noted in the assessment and plan. Elevated BNP on 05/08/23 lab work. Patient has received Lasix. Patient with complaints of LE edema and orthopnea. Pulmonary edema noted on the 05/08/23 chest xray. Please specify type and acuity of heart failure if known. * Acute * Chronic * Acute on Chronic * Unknown * Systolic * Diastolic * Combined Systolic and Diastolic * Unknown <Araceli Cochran RN - Last Filed: 05/10/23 13:20> Clarified Diagnosis Clarified Diagnosis: Acute on chronic diastolic heart failure <Rocío Rowe, COLLECTION DEVELOPMENT LIBRARIAN - Last Filed: 05/10/23 15:28>
--- NOTE | 2023-05-10 13:17 | WPDCDIQUERY2 ---
CDI Query Clarification Request CHF noted in the assessment and plan. Elevated BNP on 05/08/23 lab work. Patient has received Lasix. Patient with complaints of LE edema and orthopnea. Pulmonary edema noted on the 05/08/23 chest xray. Please specify type and acuity of heart failure if known. Acute Chronic Acute on Chronic Unknown Systolic Diastolic Combined Systolic and Diastolic Unknown <Araceli Cochran RN - Last Filed: 05/10/23 13:20> Clarified Diagnosis Clarified Diagnosis: Acute on chronic diastolic heart failure <Rocío Rowe APRN - Last Filed: 05/10/23 15:28>
[2023-05-10 13:30] LABS: Partial Thromboplastin Time 80.9 SECONDS (22.3-36.8)
--- NOTE | 2023-05-10 14:51 | PCCCNOTE ---
On 05/10/23, the student, Lynnette Escobar, provided care and completed [facility] documentation on this patient. I have reviewed the student's documentation and agree with the findings.
[2023-05-10] MEDS: HEPARIN SOD/D5W 100 UNITS/ML 25,000 UNITS/250 ML BAG 11 UNITS IV CONT (15:08)
[2023-05-10 15:21] LABS: Anion Gap 8 mmol/L (8-16); Blood Urea Nitrogen 44 mg/dL (9-20); Calcium 7.9 mg/dL (8.4-10.2); Carbon Dioxide 23 mmol/L (22-30); Chloride 101 mmol/L (98-107); Estimated CRCL calculation 19 ml/min; Estimated Glomerular Filt Rate 24; Glucose 159 mg/dL (65-110); Sodium 132 mmol/L (137-145)
[2023-05-10] MEDS: SODIUM CHLORIDE 0.9% IV 500 ML 50 ML IV CONT (16:35)
[2023-05-10] MEDS: ATORVASTATIN 40 MG TABLET PO (18:11)
[2023-05-10 19:23] LABS: Glucose Point of Care 151 mg/dl (65-105)
[2023-05-10 20:21] LABS: Partial Thromboplastin Time 61.6 SECONDS (22.3-36.8)
[2023-05-10] MEDS: HEPARIN SODIUM 5,000 UNITS/ML VIAL 3000 UNITS IV PUSH (21:12)
[2023-05-10] MEDS: CLOPIDOGREL BISULFATE 75 MG TABLET PO (21:12)
[2023-05-10 23:41] LABS: Glucose Point of Care 197 mg/dl (65-105)
[2023-05-11] VITALS (10 sets, daily range): BP systolic 129–151; BP diastolic 57–66; PULSE 85–98; RESP 18–26; TEMP 36.4–36.5; O2SAT 92–96
[2023-05-11 05:14] LABS: Basophils Absolute Auto 0.1 K/mm3 (0.0-0.1); Basophils Percent Auto 0.8 % (0.2-1.2); Eosinophils Absolute Auto 0.3 K/mm3 (0-0.3); Eosinophils Percent Auto 2.3 % (0-4.4); Hematocrit 38.3 % (42.0-52.0); Hemoglobin 12.9 g/dL (14.0-18.0); Immature Granulocyte Percent A 0.9 % (0-0.5); Lymphocytes Absolute Auto 1.24 K/mm3 (0.9-3.2); Mean Corpuscular HGB Conc 33.7 g/dl (32-36); Mean Corpuscular Hemoglobin 29.9 pg (26-34); Mean Corpuscular Volume 88.7 fl (80-100); Mean Platelet Volume 10.8 fl (7.4-10.4); Monocytes Percent Auto 9.1 % (2.6-8.5); Neutrophils Absolute Auto 8.5 K/mm3 (1.3-6.7); Neutrophils Percent Auto 75.9 % (45.5-73.1); Platelet Count Result 276 k/mm3 (150-375); Red Blood Count 4.32 M/mm3 (4.6-6.20); Red Cell Distribution Width 12.8 % (11.5-14.5); White Blood Count 11.3 K/mm3 (4.5-10.0)
[2023-05-11 05:25] LABS: Anion Gap 9 mmol/L (8-16); Blood Urea Nitrogen 45 mg/dL (9-20); Carbon Dioxide 24 mmol/L (22-30); Chloride 99 mmol/L (98-107); Estimated CRCL calculation 19 ml/min; Estimated Glomerular Filt Rate 24; Glucose 158 mg/dL (65-110); Partial Thromboplastin Time 142.5 SECONDS (22.3-36.8); Potassium 4.3 mmol/L (3.4-5.0); Sodium 132 mmol/L (137-145)
[2023-05-11] MEDS: NITROGLYCERIN OINTMENT 1 INCH DOSE TRANSDERM (05:39)
[2023-05-11 08:16] LABS: Glucose Point of Care 144 mg/dl (65-105)
[2023-05-11] MEDS: PANTOPRAZOLE 40 MG TABLET PO (09:00)
[2023-05-11] MEDS: TAMSULOSIN HCL 0.4 MG CAPSULE PO (09:00)
[2023-05-11] MEDS: amLODIPine BESYLATE 5 MG TABLET 10 MG PO (09:00)
[2023-05-11] MEDS: METOPROLOL SUCCINATE EXT REL 25 MG TABCR PO (09:00)
[2023-05-11] MEDS: ISOSORBIDE MONONITRATE 30 MG TAB.ER.24H PO (09:01)
[2023-05-11] MEDS: ASPIRIN 81 MG ENTERIC TABLET PO (09:01)
--- NOTE | 2023-05-11 10:43 | PM.PNCARD ---
Progress Note: A&P Assessment and Plan (1) Non-ST elevation myocardial infarction (NSTEMI): Code(s): I21.4 - Non-ST elevation (NSTEMI) myocardial infarction Status: Acute Assessment and Plan: Presented with acute onset of chest pain and shortness of breath. His troponin levels are elevated at 0.392, 0.754, and 1.270. EKG shows some evidence of lateral ischemia with ST depression in leads V4 through V6. His chest pain is nitro responsive and he has remained chest pain free. Cardiac catheterization was recommended by our team depending on his renal function. Today, I discussed cardiac catheterization with the patient. Discussed with patient regarding the indications for cardiac catheterization, procedure details, risks vs benefits, and alternative management options of medical management only. I did discuss with the patient that he is at higher risk for complications due to his severe vascular disease and higher risk for contrast induced nephropathy given his renal function. Access will be difficult in this patient given his severe PAD. 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 He saw Vascular Surgery in June 2022 where a repeat CTA A/P with runoff was ordered, but patient did not get that done and has not followed up with Vascular Surgery either. Also, I am concerned about patient compliance with DAPT if he did need stents as he has not followed up regularly with his primary care doctor, Vascular Surgery, or other clinic appointments. He also has not been compliant with his medications as noted on admission. I also did explain to the patient that if he did have underlying coronary artery disease and needed any high risk or complex intervention done, then we cannot do that here at [facility] and he would have to have intervention done at a tertiary center. We also do not have CTS here if he had multivessel disease and needed to be considered for surgical revascularization. After discussion with the patient, patient states that he prefers not to undergo cardiac cath at this time and wants to only do medical management. Therefore, continue ASA, Plavix, high intensity statin, beta darrick. I will transition the Nitro patch to Imdur. From a cardiac standpoint, he can be discharged. Will arrange for close outpatient follow up. (2) Congestive heart failure: Qualifiers: Heart failure type: systolic Code(s): I50.9 - Heart failure, unspecified Status: Acute Assessment and Plan: Presented with shortness of breath and had evidence of CHF on chest X-ray. Was given one dose of IV furosemide in the emergency department and reports subsequent improvement of breathing. Shortness of breath and orthopnea resolved. I will start PO Lasix on him to keep him euvolemic. Echo shows mildly reduced LVSF with EF 40-45%. Can initiate medical therapy when renal function improves. (3) Qeixi-zz-whhlnrb kidney injury: Code(s): N17.9 - Acute kidney failure, unspecified; N18.9 - Chronic kidney disease, unspecified Status: Acute Assessment and Plan: Acute kidney injury with stage III CKD. Needs outpatient Nephrology follow up. (4) Hypertension: Code(s): I10 - Essential (primary) hypertension Status: Chronic Assessment and Plan: Above goal currently but holding home Lisinopril because of ALLEN. Added metoprolol as above. Further adjustments can be made depending on renal function. Needs outpatient follow up for his hypertension. Subjective Date/time seen: 05/11/23 10:43 Interval history: Reason for visit: CHF, NSTEMI HPI: Silvano Duval is a 78-year-old patient with type 2 diabetes, carotid occlusion, peripheral arterial disease, atrial fibrillation, hyperlipidemia, and renal artery stenosis.? He also has a history of stroke in 2008? and has some residual left-sided weakness.? He is ho
[2023-05-11 12:01] LABS: Glucose Point of Care 179 mg/dl (65-105)
[2023-05-11 12:34] LABS: Partial Thromboplastin Time 29.6 SECONDS (22.3-36.8)
--- NOTE | 2023-05-11 13:17 | PM.DS ---
DS: Admitting Diagnosis Discharge Date 05/11/23 Admitting Diagnosis NSTEMI DS: Discharge Diagnosis Discharge Diagnosis (1) Non-ST elevation myocardial infarction (NSTEMI): Code(s): I21.4 - Non-ST elevation (NSTEMI) myocardial infarction Status: Acute Assessment and Plan: EKG showed some nonspecific ST T-wave changes and his troponin has been trending upwards. V/Q scan low prob for PE PER CARDIO: Continue aspirin, statin, Plavix, Toprol XL 25mg daily Imdur and Lasix started on d/c No cath today d/t renal function. (2) Congestive heart failure: Qualifiers: Heart failure type: systolic Code(s): I50.9 - Heart failure, unspecified Status: Acute Assessment and Plan: 05/10: ECHO results as follows: Summary ? 1. Definity contrast used to improve exam quality. ? 2. Mild global left ventricular systolic dysfunction ejection fraction 40-45%. ? 3. Moderate concentric left ventricular hypertrophy. ? 4. Sclerotic but nonstenotic aortic valve. ? 5. Compared with examination from 2017 left ventricular systolic function is reduced. Patient refusing further testing by cardiology while here, to follow up closely outpatient. (3) Vhoxy-dk-hzqugvv kidney injury: Code(s): N17.9 - Acute kidney failure, unspecified; N18.9 - Chronic kidney disease, unspecified Status: Acute Assessment and Plan: Renal ultrasound WNL All medications will be renally dosed, continue to hold lisinopril and glipizide until f/u with PCP. (4) Type 2 diabetes mellitus: Code(s): E11.9 - Type 2 diabetes mellitus without complications Status: Chronic Assessment and Plan: Hold glipizide given worsening renal function. resume home regimen otherwise (5) Hypertension: Code(s): I10 - Essential (primary) hypertension Status: Chronic Assessment and Plan: hold lisinopril, continue metoprolol as ordered BPs reviewed and stable DS: Summary Hospital Course Hospital Course: Patient is a very pleasant 78-year-old male smoker with history of stroke, peripheral vascular disease, chronic kidney disease, type 2 diabetes mellitus, hypertension, and hyperlipidemia who presented to the emergency department via private vehicle for evaluation of chest pain and shortness of breath. The patient provides the following history. Two nights ago while lying in bed trying to fall asleep he developed a tightness in the mid chest region associated with mild shortness of breath. His symptoms lasted several hours before resolving. He has had a couple of similar episodes occur since that time and it seems to occur mostly when he is lying down. He has also noted edema of the lower legs over the past 1 week or so. Today his symptoms seem to be worse and lasted longer than 4 so he came in for evaluation. He denies syncope, near syncope, pleuritic pain, resting shortness of breath, nausea, vomiting, sweats, and calf pain. He was afebrile on arrival with stable vital signs. Labs were significant for a WBC count of 16.4, creatinine 2.30, troponin 0.392, proBNP 6630. Chest x-ray showed mild pulmonary edema and small effusions. EKG shows sinus tachycardia with short FL interval and some nonspecific T-wave abnormalities. He was given aspirin 324 mg, furosemide 40 mg IV, and he has been started on heparin drip. At the time my evaluation he is resting comfortably and has no complaints. On review of his medications it looks like he had previously been prescribed carvedilol, clopidogrel, and atorvastatin however he stopped taking no several months ago as he thought he was on too many medications. Hep drip has been d/bulmaro. Cardiology has followed closely since admission and patient is refusing further Evaluation and testing today due to risks. He is to follow up closely with cardiology outpatient. Will continue to hold lisinopril and glipizide due to renal function until he has follow up with his PC
[2023-05-11] MEDS: ALBUTEROL SULFATE (*SP) AEROSOL 1 PUFF 2 PUFF INHALATION (13:58)
--- NOTE | 2023-05-11 14:59 | PCCCNOTE ---
On 05/11/23, the student, Lynnette Escobar, provided care and completed [facility] documentation on this patient. I have reviewed the student's documentation and agree with the findings.
== END 2023-05-11 14:00 | disposition home or self-care (01) | DRG 280 ==
LOC: ANHED 14:41 → ANHIMU 16:16
PROVIDERS: General Practice; Internal Medicine; Nurse Practitioner; Nurse Practitioner Acute Care; Physician Assistant; Admitting Provider Internal Medicine; Emergency Provider Nurse Practitioner Family; PCP Internal Medicine; Visit Provider Nurse Practitioner
DX: I21.4 Non-ST elevation (NSTEMI) myocardial infarction (principal); I50.33 Acute on chronic diastolic (congestive) heart failure; I13.0 Hypertensive heart and chronic kidney disease with heart failure and stage 1 through stage 4 chronic kidney disease, or unspecified chronic kidney disease; I69.354 Hemiplegia and hemiparesis following cerebral infarction affecting left non-dominant side; N17.9 Acute kidney failure, unspecified; E11.22 Type 2 diabetes mellitus with diabetic chronic kidney disease; N18.9 Chronic kidney disease, unspecified; E78.5 Hyperlipidemia, unspecified; I73.9 Peripheral vascular disease, unspecified; I48.91 Unspecified atrial fibrillation; I70.1 Atherosclerosis of renal artery; F17.210 Nicotine dependence, cigarettes, uncomplicated; Z79.82 Long term (current) use of aspirin
CPT/HCPCS: 36415; 71045; 71046; 76775; 78582; 80048; 80053; 82948; 83036; 83690; 83735; 83880; 84484; 85025; 85027; 85380; 85610; 85730; 93005; 93970; 94640; A9270; A9540; A9558; C8929; J1644; J1940; J3475; J7040; Q9957

== ENCOUNTER 2023-05-13 07:19 | Inpatient (IN) | payer MEDICARE, SELFPAY ==
[2023-05-13] VITALS (72 sets, daily range): BP systolic 85–188; BP diastolic 53–92; PULSE 0–105; RESP 13–30; TEMP 35.9–36.3; O2SAT 70–100; BMI 24.2
--- NOTE | ~2023-05-13 | XR_ITS ---
XR chest 1V portable 05/13/2023 08:33 Indication: Dyspnea Procedure: AP portable chest Comparison: Comparison to multiple prior studies sequentially, with oldest reviewed study dated 12/22. Findings: Heart size normal. Diffuse bilateral airspace disease has progressed since most recent stud y. There are developing bilateral pleural effusions, right greater than left. No pneumothorax. Impression: 1: Interval progression of diffuse bilateral airspace disease which may represent edema or pneumonia. 2: Developing bilateral pleural effusions, right greater than left. Reviewed, dictated and finalized at location B. CLEANER Impression: 1: Interval progression of diffuse bilateral airspace disease which may represe nt edema or pneumonia. 2: Developing bilateral pleural effusions, right greater than left.
--- NOTE | 2023-05-13 07:23 | ECG_ITS ---
Measurements Intervals [place] Rate: 108 P: 56 NH: 116 QRS: 43 QRSD: 106 T: 60 QT: 319 QTc: 428 Interpretive Statements SINUS TACHYCARDIA WITH SHORT NH INTERVAL LEFT VENTRICULAR HYPERTROPHY WITH SECONDARY REPOLARIZATION ABNORMALITY ABNORMAL ECG COMPARED TO ECG 05/09/2023 09:23:11 NO SIGNIFICANT DIFFERENCE Electronically Signed On 05-13-2023 7:33:06 MACHINE PIE MAKER by Cody Arreaga M.D.
--- NOTE | 2023-05-13 07:34 | ED.GENADULT ---
HPI - General Adult General Chief complaint: Shortness of Breath/Dyspnea Stated complaint: SOB Time Seen by Provider: 05/13/23 07:28 History of Present Illness HPI narrative: 78-year-old male with history of stroke, peripheral vascular disease, chronic kidney disease, type 2 diabetes mellitus, hypertension, and hyperlipidemia presenting to the ED for evaluation of worsening shortness of breath. Patient was recently admitted to the ICU for CHF and an NSTEMI. this morning family states they were having difficulty trying to arouse the patient and they called EMS. During his last admission cardiology did discuss the possibility of cardiac catheterization the patient and patient declined a cardiac cath and only wanted medical management at that time. patient is now requesting surgical intervention if needed. Related Data Home Medications Medication Instructions Recorded Confirmed aspirin 81 mg tablet,delayed 81 mg PO DAILY 12/04/19 05/13/23 release (Adult Low Dose Aspirin) albuterol sulfate 90 mcg/actuation 2 puff inhalation TID PRN Wheezing 05/08/23 05/13/23 aerosol inhaler clopidogrel 75 mg tablet 75 mg PO HS 05/08/23 05/13/23 lisinopril 20 mg tablet 40 mg PO DAILY 05/08/23 05/13/23 pantoprazole 40 mg tablet,delayed 40 mg PO DAILY 05/08/23 05/13/23 release Allergies Allergy/AdvReac Type Severity Reaction Status Date / Time No Known Allergies Allergy Unknown Verified 05/13/23 07:30 Review of Systems Review of Systems: All systems reviewed & are unremarkable except as noted in HPI and below PMFSH Past Medical History Medical History (Updated 05/13/23 @ 18:50 by Arya Frankel MD) Anxiety CAD (coronary artery disease) Carotid stenosis Chronic kidney disease Hyperlipidemia due to dietary fat intake Hypertension Peripheral artery disease Renal artery stenosis Stroke 05/12/2007 10/17/2016 02/12/2019 Tobacco dependence Type 2 diabetes mellitus Surgical History Surgical History History of tonsillectomy Family History Family History Mother Family history of diabetes mellitus in first degree relative Cerebrovascular accident Father Family history of emphysema Sibling Family history of malignant neoplasm Social History Social History Social History: Surrogate medical decision maker: Cheryl Duval, spouse. Code status: Full code. Smoking packs per day: 0.25 Smoking cigarettes per day: 5.0 Years smoked: 50 Smoking pack-years: 12.50 Smoking status: Current some day smoker Alcohol intake: never Substance use: never Lack of Transportation: No Lack of Food: Never True Current Housing: I Have Housing Concerned About Future Housing: No Difficulty Paying Gas/Electric Bills: No Difficulty Paying for Meds: No Currently Unemployed: No Education: Don't Know Difficulty w/ Childcare or Family Care: No Spiritual care concerns: No Exam Narrative: APPEARANCE: Respiratory distress upon arrival HEAD: normocephalic, atraumatic. EYES: PERRLA/EOMI, conjunctivae clear. NOSE: Normal no drainage EARS:TMS clear with good light reflex. THROAT: Pharynx clear, no exudate. NECK: Supple. No adenopathy, no masses. RESPIRATORY: wheeze and rales bilaterally CARDIOVASCULAR: Regular rate and rhythm without murmurs rubs or gallops. ABDOMINAL: Soft, nontender, nondistended, normal bowel sounds MUSCULOSKELETAL: Moves all extremities. Strength/ROM intact, No edema, No calf tenderness. NEURO: Alert. Cranial nerves II through XII intact. grossly intact SKIN: Warm, dry. Normal Color Course Course Emergency Course: 78-year-old male with history NSTEMI and CHF presented the ED for evaluation of worsening shortness of breath. Patient is afebrile but does have a leukocytosis of 14.2 and hemoglobin of 12.9. No
[2023-05-13] MEDS: ALBUTEROL SULFATE NEB 2.5 MG/3 ML INH 10 MG INHALATION (07:37)
[2023-05-13] MEDS: IPRATROPIUM BR 0.02% INH SOLN 0.5 MG/2.5 ML VIAL 1.5 MG INHALATION (07:38)
[2023-05-13 07:55] LABS: Basophils Absolute Auto 0.1 K/mm3 (0.0-0.1); Basophils Percent Auto 0.8 % (0.2-1.2); Eosinophils Absolute Auto 0.3 K/mm3 (0-0.3); Hematocrit 38.6 % (42.0-52.0); Hemoglobin 12.9 g/dL (14.0-18.0); Immature Granulocyte Absolute 0.17 K/mm3 (0.00-0.031); Immature Granulocyte Percent A 1.2 % (0-0.5); Lymphocytes Absolute Auto 1.84 K/mm3 (0.9-3.2); Mean Corpuscular HGB Conc 33.4 g/dl (32-36); Mean Corpuscular Hemoglobin 29.5 pg (26-34); Mean Corpuscular Volume 88.3 fl (80-100); Mean Platelet Volume 10.5 fl (7.4-10.4); Monocytes Absolute Auto 1.5 K/mm3 (0.1-0.6); Monocytes Percent Auto 10.2 % (2.6-8.5); Neutrophils Absolute Auto 10.3 K/mm3 (1.3-6.7); Neutrophils Percent Auto 72.8 % (45.5-73.1); Platelet Count Result 356 k/mm3 (150-375); Red Blood Count 4.37 M/mm3 (4.6-6.20); White Blood Count 14.2 K/mm3 (4.5-10.0)
[2023-05-13 08:06] LABS: Prothrombin Time 13.4 Seconds (11.1-14.7)
[2023-05-13 08:07] LABS: Partial Thromboplastin Time 27.3 SECONDS (22.3-36.8)
[2023-05-13 08:08] LABS: Alanine Aminotransferase 49 U/L (6-50); Albumin Level 4.1 g/dL (3.5-5.1); Alkaline Phosphatase 81 U/L (38-126); Anion Gap 11 mmol/L (8-16); Aspartate Amino Transferase 56 U/L (17-59); Bilirubin,Total 0.6 mg/dL (0.2-1.3); Blood Urea Nitrogen 45 mg/dL (9-20); Calcium 8.6 mg/dL (8.4-10.2); Carbon Dioxide 23 mmol/L (22-30); Chloride 100 mmol/L (98-107); Estimated CRCL calculation 20 ml/min; Estimated Glomerular Filt Rate 26; Glucose 211 mg/dL (65-110); Potassium 4.4 mmol/L (3.4-5.0); Sodium 134 mmol/L (137-145)
[2023-05-13 08:20] LABS: Alveolar/Arterial O2 Gradient 95.1 mmHg; Base Excess ABG -0.7 mEq/l (+/-2.0); Carboxyhemoglobin 0.9 % THb (0-2.0); Fractional Inspired Oxygen 30 %; HCO3 ABG 23.8 mEq/l (22.0-26.0); Methemoglobin ABG 0.1 %THb (0-1.5); Oxygen Content ABG 16.9 %vol (16.0-22.0); Oxygen Saturation ABG 94.9 % (95.0-100.0); Oxyhemoglobin 92.5 % THb (90.0-100.0); PCO2 ABG 38.6 mmHg (35.0-45.0); PO2 ABG 73.4 mmHg (80.0-100.0); PO2 FiO2 Ratio Arterial Blood 2.45 %; Reduced Hemoglobin 6.5 %THb (0-5.0); pH ABG 7.407 (7.350-7.450)
[2023-05-13 08:22] LABS: Device NON-INVASIVE VENT; Modified Allen's Test Pass; Site Drawn LEFT RADIAL
--- NOTE | 2023-05-13 08:22 | ECG_ITS ---
Measurements Intervals [place] Rate: 83 P: 58 OR: 122 QRS: 17 QRSD: 108 T: 196 QT: 368 QTc: 434 Interpretive Statements SINUS RHYTHM LEFT VENTRICULAR HYPERTROPHY WITH SECONDARY REPOLARIZATION ABNORMALITY ABNORMAL ECG COMPARED TO ECG 05/13/2023 07:27:21 NO SIGNIFICANT CHANGE Electronically Signed On 05-13-2023 10:44:53 INSURANCE CLAIMS EXAMINER by Cody Arreaga M.D.
[2023-05-13 08:23] LABS: NT Pro B Type Natriuretic Pept 11800 pg/mL (19.9-100)
[2023-05-13 08:23] LABS: Non-Invasive Expiratory Pressure 7 CMH2O; Non-Invasive Inspiratory Pressure 14 CMH2O
[2023-05-13 08:57] LABS: Influenza A QL RT-PCR Negative (Negative); Influenza B QL RT-PCR Negative (Negative); RSV RNA, RT-PCR Negative (Negative); SARS-CoV-2 RNA PCR Negative (Negative)
[2023-05-13] MEDS: FUROSEMIDE INJ 40 MG/4 ML VIAL IV PUSH ×2 (09:44→21:11)
--- NOTE | 2023-05-13 10:28 | PC.NURSE ---
Spoke to [facility] transfer center. Will call when bed is available.
[2023-05-13] MEDS: ALBUTEROL SULFATE NEB 2.5 MG/3 ML INH INHALATION ×2 (13:28→20:25)
--- NOTE | 2023-05-13 15:09 | PM.IMHP ---
H&P: HPI History of Present Illness Date/Time: 05/13/23 15:09 Chief Complaint: SOB Narrative: 78 y/o M presents here with SOB and chest pressure with PMH of recent NSTEMI, CHF, CKD, PAD, HLD, and DM2. Patient presented here with shortness of breath and dry cough. Reports a sudden onset overnight last night. Shortness of breath was accompanied by left chest pressure that was nonradiating. Patient could not identify any aggravating or alleviating factors prior to arrival to the emergency department. Due to respiratory distress, patient placed on BiPAP. With breathing treatment and BiPAP, patient's respiratory distress and chest pressure resolved. He does not report any increased extremity edema. Does endorse weakness and fatigue that accompanied the shortness of breath. No fever, chills, or body aches. No other current complaints. Of note, patient was recently admitted to the ICU for NSTEMI and CHF exacerbation. During this admission his echo on 05/10 showed EF of 40-45%. EKG showed nonspecific ST T-wave changes with elevations in troponin 0.392 -> 0.754 -> 1.270. 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 Due to this and possibility of need for complex interventions, would need to go to a tertiary care center. Today, patient is open to more than medical management of his vascular issues. Has previously seen Santosh Rojas (Gaetano) who is associated with C. Has been accepted at [facility], due to extensive wait times. Current workup showed WBC 14.2, mild but stable anemia with hgb of 12.9, stable CKD with creatinine of 2.4, and elevated troponin at 1.010. EKG did not show significant changes. CXR showed progression of airspace opacities - edema v pna and bilateral pleural effusions (R>L). Review of Systems Review of Systems: All systems reviewed & are unremarkable except as noted in HPI and below PMFSH Past Medical History Medical History (Updated 05/13/23 @ 16:36 by Valeri Swan, LIZ) Anxiety CAD (coronary artery disease) Carotid stenosis Chronic kidney disease Hyperlipidemia due to dietary fat intake Hypertension Peripheral artery disease Renal artery stenosis Stroke 05/12/2007 10/17/2016 02/12/2019 Tobacco dependence Type 2 diabetes mellitus Surgical History Surgical History History of tonsillectomy Family History Family History Mother Family history of diabetes mellitus in first degree relative Cerebrovascular accident Father Family history of emphysema Sibling Family history of malignant neoplasm Social History Social History Social History: Surrogate medical decision maker: Cheryl Duval, spouse. Code status: Full code. Smoking packs per day: 0.25 Smoking cigarettes per day: 5.0 Years smoked: 50 Smoking pack-years: 12.50 Smoking status: Current some day smoker Alcohol intake: never Substance use: never Lack of Transportation: No Lack of Food: Never True Current Housing: I Have Housing Concerned About Future Housing: No Difficulty Paying Gas/Electric Bills: No Difficulty Paying for Meds: No Currently Unemployed: No Education: Don't Know Difficulty w/ Childcare or Family Care: No Spiritual care concerns: No Meds Home Medications and Allergies Home Medications Medication Instructions Recorded Confirmed Type aspirin 81 mg tablet,delayed 81 mg PO DAILY 12/04/19 05/13/23 History release (Adult Low Dose Aspirin) blood sugar diagnostic (Accu-Chek #100 ea 09/22/20 05/13/23 Rx Flory Plus test strips)
--- NOTE | 2023-05-13 15:50 | ADMGEN ---
This patient, Silvano Duval, was admitted to IMU Room 203-01. Patient/family oriented to hospital policies and general routines including ID bracelet, bed and alarms, visiting hours, pain management, procedures, bathroom and other care routines, personal items, smoking policy, room service/diet, and visiting hours. Information on how to activate the Rapid Response Team has been discussed. Patient/Family are encouraged to report perceived risks to care and to ask questions if they do not understand what they are told or what they should do.
[2023-05-13] MEDS: ATORVASTATIN 40 MG TABLET PO (18:39)
[2023-05-13 21:03] LABS: Glucose Point of Care 262 mg/dl (65-105)
[2023-05-13] MEDS: CLOPIDOGREL BISULFATE 75 MG TABLET PO (21:10)
[2023-05-13] MEDS: INSULIN ASPART (*BKC) 100 UNITS/ML SUB-Q (21:15)
[2023-05-13 21:36] LABS: Troponin I 0.969 ng/mL (0.000-0.034)
[2023-05-14] VITALS: PULSE 90; PULSE 96; RESP 16; O2SAT 93
[2023-05-14 02:00] VITALS: PULSE 82; PULSE 92; RESP 20
[2023-05-14] MEDS: ALBUTEROL SULFATE NEB 2.5 MG/3 ML INH INHALATION (02:10)
[2023-05-14 02:13] VITALS: PULSE 88; RESP 20
--- NOTE | 2023-05-14 02:59 | PC.NURSE ---
05/13/23 at 2331-Report given to EMILY Maher at [facility] ICU. 2350-Attempted to call Pt's spouse, Cheryl to update her on Pt's transfer. No answer received. Message left to return phone call.
--- NOTE | 2023-05-24 14:30 | PM.TDS ---
Transfer Discharge Sum: Prov Provider Date of admission: 05/13/23 12:13 Primary care physician: Ace Tavares DO Admitting clinician: Digna Monge MD Discharging clinician: Valeri Swan Anticipated date of transfer: 05/13/23 Receiving physician/facility: Dr Stanton at [facility] DS: Admitting Diagnosis Discharge Date 05/14/23 Admitting Diagnosis Acute Respiratory Distress DS: Discharge Diagnosis Discharge Diagnosis (1) Acute respiratory distress: Code(s): R06.03 - Acute respiratory distress Status: Acute (2) CHF exacerbation: Code(s): I50.9 - Heart failure, unspecified Status: Acute (3) CAD (coronary artery disease): Qualifiers: Coronary Disease-Associated Artery/Lesion type: [place] artery [place] vs. transplanted heart: [place] heart Associated angina: with other forms of angina Qualified Code(s): I25.118 - Atherosclerotic heart disease of [place] coronary artery with other forms of angina pectoris Code(s): I25.10 - Atherosclerotic heart disease of [place] coronary artery without angina pectoris Status: Acute (4) Congestive heart failure: Qualifiers: Heart failure type: systolic Heart failure chronicity: acute on chronic Qualified Code(s): I50.23 - Acute on chronic systolic (congestive) heart failure Code(s): I50.9 - Heart failure, unspecified Status: Acute (5) Hypertension: Qualifiers: Hypertension type: primary hypertension Qualified Code(s): I10 - Essential (primary) hypertension Code(s): I10 - Essential (primary) hypertension Status: Chronic Transfer Discharge Sum: Med Medications Active and Home Medications: Home Medications aspirin 81 mg tablet,delayed release (Adult Low Dose Aspirin) 81 mg PO DAILY 12/04/19 [History Confirmed 05/13/23] blood sugar diagnostic (Accu-Chek Flory Plus test strips) #100 ea 09/22/20 [Rx Confirmed 05/13/23] fluticasone propionate 50 mcg/actuation nasal spray,suspension (Flonase Allergy Relief) 2 spray intranasal DAILY #15.8 mL 06/25/21 [Rx Confirmed 05/13/23] atorvastatin 40 mg tablet 40 mg PO QPM #90 tabs 07/23/22 [Rx Confirmed 05/13/23] tamsulosin 0.4 mg capsule 0.4 mg PO DAILY #90 caps 07/23/22 [Rx Confirmed 05/13/23] amlodipine 10 mg tablet 10 mg PO DAILY #90 tabs 08/26/22 [Rx Confirmed 05/13/23] glipizide 10 mg tablet 10 mg PO DAILY #90 tabs 08/26/22 [Rx Confirmed 05/13/23] albuterol sulfate 90 mcg/actuation aerosol inhaler 2 puff inhalation TID PRN Wheezing 05/08/23 [History Confirmed 05/13/23] clopidogrel 75 mg tablet 75 mg PO HS 05/08/23 [History Confirmed 05/13/23] lisinopril 20 mg tablet 40 mg PO DAILY 05/08/23 [History Confirmed 05/13/23] pantoprazole 40 mg tablet,delayed release 40 mg PO DAILY 05/08/23 [History Confirmed 05/13/23] furosemide 40 mg tablet 40 mg PO DAILY #30 tabs 05/11/23 [Rx Confirmed 05/13/23] isosorbide mononitrate 30 mg tablet,extended release 24 hr 30 mg PO QAM #30 tabs 05/11/23 [Rx Confirmed 05/13/23] metoprolol succinate 25 mg tablet,extended release 24 hr (Toprol XL) 25 mg PO QAM #30 tabs 05/11/23 [Rx Confirmed 05/13/23] Transfer Discharge Sum: Hosp Hospital Course Hospital course: Silvano Duval is a 78 year old male who presented here with SOB and chest pressure with PMH of recent NSTEMI, CHF, CKD, PAD, HLD, and DM2. Patient presented here with shortness of breath and dry cough.? Reports a sudden onset overnight last night.? Shortness of breath was accompanied by left chest pressure that was nonradiating.? Patient could not identify any aggravating or alleviating factors prior to arrival to the emergency department.? Due to respiratory distress, patient placed on BiPAP.? With breathing treatment and BiPAP, patient's respiratory distress and chest pressure resolved.? He does not report any increased extremity edema.? Does endorse weakness and fatigue that accompanied the shortness of breath.? No fever, chills, or body a
== END 2023-05-14 02:53 | disposition short-term general hospital (02) | DRG 204 ==
LOC: ANHED 08:32 → ANHIMU 11:09
PROVIDERS: Admitting Provider General Practice; Emergency Provider Emergency Medicine; PCP Internal Medicine; Visit Provider Student in an Organized Health Care Education/Training Program
DX: R06.03 Acute respiratory distress (principal); I50.23 Acute on chronic systolic (congestive) heart failure; I21.4 Non-ST elevation (NSTEMI) myocardial infarction; I13.0 Hypertensive heart and chronic kidney disease with heart failure and stage 1 through stage 4 chronic kidney disease, or unspecified chronic kidney disease; N18.4 Chronic kidney disease, stage 4 (severe); I25.10 Atherosclerotic heart disease of native coronary artery without angina pectoris; I73.9 Peripheral vascular disease, unspecified; E11.22 Type 2 diabetes mellitus with diabetic chronic kidney disease; D64.9 Anemia, unspecified; Z20.822 Contact with and (suspected) exposure to COVID-19; K21.9 Gastro-esophageal reflux disease without esophagitis; N40.0 Benign prostatic hyperplasia without lower urinary tract symptoms; Z87.891 Personal history of nicotine dependence
CPT/HCPCS: 36415; 36600; 71045; 80053; 82375; 82805; 82948; 83050; 83605; 83880; 84484; 85025; 85610; 85730; 87040; 87637; 93005; 94002; 94640; 96374; 99285; A9270; G0378; J1815; J1940

== ENCOUNTER 2023-06-11 14:36 | Emergency (ER) | payer MEDICARE, SELFPAY ==
[2023-06-11] VITALS (64 sets, daily range): BP systolic 112–182; BP diastolic 56–104; PULSE 64–127; RESP 16–40; TEMP 35.8–36.4; O2SAT 92–100
--- NOTE | 2023-06-11 | ECG_ITS ---
Measurements Intervals [place] Rate: 96 P: 57 UT: 123 QRS: 10 QRSD: 101 T: 95 QT: 359 QTc: 454 Interpretive Statements SINUS RHYTHM POSSIBLE LEFT ATRIAL ENLARGEMENT ST-T WAVE ABNORMALITY IN ANTEROLAT/HIGH LAT LEADS- CONSIDER ISCHEMIA BASELINE WANDER- II, III, AVL, AVF ABNORMAL ECG COMPARED TO ECG 06/11/2023 14:45:12 SINUS RHYTHM NOW PRESENT Electronically Signed On 06-13-2023 13:12:59 BANKMAN by Kevin Armijo D.O.
--- NOTE | ~2023-06-11 | XR_ITS ---
Portable chest x-ray Comparison: 05/13/2023 Clinical History: Shortness of breath Findings: Small bilateral pleural effusions are present. There is extensive haziness in the lungs, w ith central pulmonary venous congestive change. Cardiomediastinal silhouette is stable. Bones and so ft tissues are unremarkable. Impression: Small bilateral pleural effusions with probable mild pulmonary edema and central congestive change. Questionable underlying COPD or other chronic interstitial disease. Reviewed, dictated and finalized at location M. TER SERVER Impression: Small bilateral pleural effusions with probable mild pulmonary edema and centra l congestive change. Questionable underlying COPD or other chronic interstitial disease.
[2023-06-11 14:59] LABS: Hematocrit 41.7 % (42.0-52.0); Hemoglobin 12.7 g/dL (14.0-18.0); Mean Corpuscular HGB Conc 30.5 g/dl (32-36); Mean Corpuscular Volume 95.2 fl (80-100); Mean Platelet Volume 10.4 fl (7.4-10.4); Platelet Count Result 376 k/mm3 (150-375); Red Blood Count 4.38 M/mm3 (4.6-6.20); White Blood Count 20.2 K/mm3 (4.5-10.0)
[2023-06-11 15:08] LABS: Alanine Aminotransferase 26 U/L (6-50); Albumin Level 3.9 g/dL (3.5-5.1); Alkaline Phosphatase 99 U/L (38-126); Anion Gap 12 mmol/L (8-16); Aspartate Amino Transferase 23 U/L (17-59); Bilirubin,Total 0.9 mg/dL (0.2-1.3); Blood Urea Nitrogen 38 mg/dL (9-20); Calcium 8.1 mg/dL (8.4-10.2); Carbon Dioxide 26 mmol/L (22-30); Chloride 99 mmol/L (98-107); Estimated CRCL calculation 22 ml/min; Estimated Glomerular Filt Rate 28; Glucose 344 mg/dL (65-110); Potassium 4.2 mmol/L (3.4-5.0); Sodium 137 mmol/L (137-145)
--- NOTE | 2023-06-11 15:14 | ED.SOB ---
HPI - SOB/Dyspnea General Chief Complaint: Shortness of Breath/Dyspnea Stated Complaint: diff breathing Time Seen by Provider: 06/11/23 15:00 Source: patient and family ([place]) Mode of arrival: EMS History of Present Illness HPI Narrative: back patient presents with difficulty breathing. He was noted to be 80% on room air at home he. He states he has been short of breath for 3 days. He has a history of COPD. He also has bilateral lower extremity edema. Is reported that he recently had a myocardial infarction. He states that he was transferred from [place] to [facility] they will though where they did perform cardiac catheterization that showed blockages (unknown location) but that he was deemed too high risk stenting. He steps and then noted that a double bypass procedure was recommended but that he was also deemed too high risk for this. He has never required BIPAP or intubation for COPD exacerbation. Related Data Home Medications Medication Instructions Recorded Confirmed aspirin 81 mg tablet,delayed 81 mg PO DAILY 12/04/19 05/13/23 release (Adult Low Dose Aspirin) albuterol sulfate 90 mcg/actuation 2 puff inhalation TID PRN Wheezing 05/08/23 05/13/23 aerosol inhaler clopidogrel 75 mg tablet 75 mg PO HS 05/08/23 05/13/23 lisinopril 20 mg tablet 40 mg PO DAILY 05/08/23 05/13/23 pantoprazole 40 mg tablet,delayed 40 mg PO DAILY 05/08/23 05/13/23 release Allergies Allergy/AdvReac Type Severity Reaction Status Date / Time No Known Allergies Allergy Unknown Verified 05/13/23 07:30 [facility] Past Medical History Medical History Anxiety CAD (coronary artery disease) Carotid stenosis Chronic kidney disease Hyperlipidemia due to dietary fat intake Hypertension Non-ST elevation myocardial infarction (NSTEMI) 05/08/2023 and 06/11/2023 Peripheral artery disease Renal artery stenosis Stroke 05/12/2007 10/17/2016 02/12/2019 Tobacco dependence Type 2 diabetes mellitus Surgical History Surgical History H/[facility] History of tonsillectomy Family History Family History Mother Family history of diabetes mellitus in first degree relative Cerebrovascular accident Father Family history of emphysema Sibling Family history of malignant neoplasm Social History Social History Social History: Surrogate medical decision maker: Cheryl Duval, spouse. Code status: Full code. Smoking packs per day: 0.25 Smoking cigarettes per day: 5.0 Years smoked: 50 Smoking pack-years: 12.50 Smoking status: Current some day smoker Alcohol intake: never Substance use: never Do You Feel Safe in your Home?: Yes Lack of Transportation: No Lack of Food: Never True Current Housing: I Have Housing Concerned About Future Housing: No Difficulty Paying Gas/Electric Bills: No Difficulty Paying for Meds: No Currently Unemployed: No Education: Don't Know Difficulty w/ Childcare or Family Care: No Spiritual care concerns: No Exam Narrative: GENERAL: Well-appearing, well-nourished . HEAD: Normocephalic, atraumatic. EYES: Non injected, non icteric ENT: Nares clear, no rhinorrhea or epistaxis. NECK: Supple. CHEST: Poor effort, shallow breathing, using abdominal muscles. Respiratory distress. HEART: Tachycardic rate and rhythm. . ABDOMEN: Soft, nondistended. Abdominal bruising, from subQ injections. EXTREMITIES: Normal range of motion. 3+ bilateral pitting edema. SKIN: Warm, dry, no rash. NEURO: No focal deficits. Alert and oriented x3. PSYCH: Normal mood and affect. Course Vital Signs Vital signs: Vital Signs Temperature 96.5 F L 06/11/23 14:35 Pulse Rate 127 H 06/11/23 14:35 Respiratory Rate 34 H 06/11/23
[2023-06-11 15:20] LABS: Alveolar/Arterial O2 Gradient 252.8 mmHg; Base Excess ABG -2.4 mEq/l (+/-2.0); Fractional Inspired Oxygen 52 %; Modified Allen's Test Pass; Oxygen Content ABG 16.9 %vol (16.0-22.0); Oxygen Saturation ABG 93.6 % (95.0-100.0); Oxyhemoglobin 90.9 % THb (90.0-100.0); PCO2 ABG 42.2 mmHg (35.0-45.0); PO2 ABG 70.7 mmHg (80.0-100.0); PO2 FiO2 Ratio Arterial Blood 1.36 %; Site Drawn RIGHT RADIAL; Total Hemoglobin 13.2 g/dL (12.0-18.0); pH ABG 7.355 (7.350-7.450)
[2023-06-11 15:21] LABS: Device SIMPLE MASK
[2023-06-11 15:21] LABS: Basophils Percent Manual 1 % (0-1); Eosinophils Percent Manual 3 % (0-4); Lymphocytes Absolute Manual 1.41 K/mm3 (1.1-4.5); Monocytes Absolute Manual 1.21 K/mm3 (0.1-0.90); Monocytes Percent Manual 6 % (3-9); Neutrophils Percent Manual 83 % (46-73); Total Cells Counted 100
[2023-06-11 15:22] LABS: Hypochromasia 1+ (NORMAL); Schistocytes None Seen (NORMAL)
[2023-06-11] MEDS: FUROSEMIDE INJ 40 MG/4 ML VIAL IV PUSH (15:23)
[2023-06-11] MEDS: SODIUM CHLORIDE 0.9% IV 500 ML 999 ML IV CONT ×2 (15:23→16:24)
[2023-06-11] MEDS: ALBUTEROL SULFATE NEB 2.5 MG/3 ML INH INHALATION (15:30)
[2023-06-11] MEDS: IPRATROPIUM BR 0.02% INH SOLN 0.5 MG/2.5 ML VIAL INHALATION (15:30)
[2023-06-11 15:43] LABS: Lactic Acid Reflex 3.6 mmol/L (0.7-2.0)
[2023-06-11 15:54] LABS: D Dimer 1.45 ug/mL (<0.48)
[2023-06-11 16:10] LABS: NT Pro B Type Natriuretic Pept 27600 pg/mL (19.9-100)
[2023-06-11 16:18] LABS: Influenza A QL RT-PCR Negative (Negative); Influenza B QL RT-PCR Negative (Negative); RSV RNA, RT-PCR Negative (Negative); SARS-CoV-2 RNA PCR Negative (Negative)
--- NOTE | 2023-06-11 16:37 | ECG_ITS ---
Measurements Intervals [place] Rate: 125 P: NE: 0 QRS: 25 QRSD: 101 T: 189 QT: 280 QTc: 404 Interpretive Statements SINUS TACHYCARDIA VOLTAGE CRITERIA FOR LVH ST-T WAVE ABNORMALITY IN HIGH LATERAL LEADS- CONSIDER ISCHEMIA BASELINE ARTIFACT- I, II, III, AVR, AVF, V1-V6 ABNORMAL ECG COMPARED TO ECG 05/13/2023 08:35:12 [address] NOW PRESENT ST (T WAVE) DEVIATION NOW PRESENT Electronically Signed On 06-11-2023 17:07:49 CARDIOVASCULAR TECHNICIAN by Kevin Armijo D.O.
[2023-06-11] MEDS: ASPIRIN 81 MG CHEWABLE TABLET 324 MG PO (16:55)
--- NOTE | 2023-06-11 17:44 | PM.CNCAR ---
Assessment and Plan Assessment and plan (1) CHF exacerbation: Code(s): I50.9 - Heart failure, unspecified Status: Acute Assessment and Plan: Probably combined acute on chronic systolic and diastolic heart failure. 05/09/23 Echo: EF 40-45%, mod LVH, grade I diastolic dysfunction, mild LAE. Received Lasix 40 mg IV x1 in ER. Continue with Lasix 40 mg IV BID. Monitor renal function and electrolytes. Start Jardiance 10 mg daily. (2) Acute respiratory distress: Code(s): R06.03 - Acute respiratory distress Status: Acute Assessment and Plan: Due to combination of CHF and COPD. On Bipap currently. (3) CAD (coronary artery disease): Qualifiers: Coronary Disease-Associated Artery/Lesion type: [place] artery [place] vs. transplanted heart: [place] heart Associated angina: with other forms of angina Qualified Code(s): I25.118 - Atherosclerotic heart disease of [place] coronary artery with other forms of angina pectoris Code(s): I25.10 - Atherosclerotic heart disease of [place] coronary artery without angina pectoris Status: Acute Assessment and Plan: Reviewed recent LHC from [facility] on 05/18/23. He has severe multivessel CAD including LM, LAD, Diag, OM, RCA disease. Cardiology wanted CT surgery consultation and I do not have their consult available, but per patient and patient's step son, he was denied CABG due to being high risk for surgery. He was treated medically. Obtain CT surgery consult note from [facility]. Continue with dual antiplatelets with aspirin and Plavix, Imdur, Toprol, Lisinopril, Atorvastatin. (4) Tobacco dependence: Code(s): F17.200 - Nicotine dependence, unspecified, uncomplicated Status: Chronic Assessment and Plan: Counseled regarding smoking cessation. History of Present Illness History of Present Illness Consult date/time: 06/11/23 17:44 Reason For Visit: diff breathing Narrative: 78 yr old man presents to ER for sob. He was hospitalized for NSTEMI and CHF last month and transferred to [facility] for higher care for CAD and vascular disease. He has a history of severe multivessel CAD, NSTEMI, PAD, DM, smoking, hypertension, dyslipidemia, COPD, renal artery stenosis. His step son is at bedside. Patient is being treated on BiPAP currently. Reports that this morning he had some chest discomfort and sob and was brought to ER for evaluation. He has been having orthopnea, SOB, edema of legs recently. Review of Systems Review of Systems: All systems reviewed & are unremarkable except as noted in HPI and below Constitutional: Constitutional: Reports as per HPI, Denies chills, Reports fatigue and Denies fever(s) Cardiovascular: Cardiovascular: Reports as per HPI, Reports chest pain, Reports leg edema, Denies lightheadedness and Reports dyspnea Respiratory: Respiratory: Reports as per HPI and Reports dyspnea Gastrointestinal: Gastrointestinal: Reports as per HPI and Denies abdominal pain Genitourinary: Genitourinary: Reports as per HPI and Denies dysuria Musculoskeletal: Musculoskeletal: Reports as per HPI Neurologic: Reports as per HPI, Denies dizziness and Denies syncope [facility] Past Medical History Medical History (Updated 05/13/23 @ 18:50 by Arya Frankel MD) Anxiety CAD (coronary artery disease) Carotid stenosis Chronic kidney disease Hyperlipidemia due to dietary fat intake Hypertension Peripheral artery disease Renal artery stenosis Stroke 05/12/2007 10/17/2016 02/12/2019 Tobacco dependence Type 2 diabetes mellitus Surgical History Surgical History History of tonsillectomy Family History Family History Mother Family history of diabetes mellitus in first degree relative Cerebrovascular accident Father Family history of emphysema Sibling Family history of malig
[2023-06-11] MEDS: DOXYCYCLINE 100 MG/NS 100 ML 100 MG/100 ML BAG IVPB (18:12)
[2023-06-11 18:32] LABS: Reflex Lactic Acid Yes or No Add Lactic
[2023-06-11 18:32] LABS: Troponin I 0.444 ng/mL (0.000-0.034)
--- NOTE | 2023-06-11 21:00 | ECG_ITS ---
Measurements Intervals [place] Rate: 79 P: 66 SC: 123 QRS: 18 QRSD: 97 T: -82 QT: 413 QTc: 474 Interpretive Statements SINUS RHYTHM POSSIBLE LEFT ATRIAL ENLARGEMENT MINIMAL Q WAVES- INFERIOR LEADS ST-T WAVE ABNORMALITY IN ANTEROLATERAL LEADS- CONSIDER ISCHEMIA ABNORMAL ECG COMPARED TO ECG 06/11/2023 14:45:12 SINUS RHYTHM NOW PRESENT Electronically Signed On 06-12-2023 9:21:44 DYER HELPER by Kevin Armijo D.O.
--- NOTE | 2023-06-11 23:02 | PC.NURSE ---
pt care and report given to EMILY Hernández. all questions answered.
[2023-06-12] VITALS (9 sets, daily range): BP systolic 146–169; BP diastolic 57–77; PULSE 70–89; RESP 17–28; O2SAT 93–99
[2023-06-12] MEDS: HEPARIN SODIUM 5,000 UNITS/ML VIAL 4000 UNITS IV PUSH (00:25)
[2023-06-12] MEDS: HEPARIN SOD/D5W 100 UNITS/ML 25,000 UNITS/250 ML BAG 8 UNITS IV CONT (00:26)
[2023-06-12 00:50] LABS: Basophils Percent Auto 0.3 % (0.2-1.2); Eosinophils Percent Auto 0.1 % (0-4.4); Hematocrit 36.6 % (42.0-52.0); Hemoglobin 11.2 g/dL (14.0-18.0); Immature Granulocyte Absolute 0.09 K/mm3 (0.00-0.031); Lymphocytes Absolute Auto 0.55 K/mm3 (0.9-3.2); Lymphocytes Percent Auto 6.3 % (18.3-44.2); Mean Corpuscular HGB Conc 30.6 g/dl (32-36); Mean Corpuscular Hemoglobin 28.9 pg (26-34); Mean Corpuscular Volume 94.3 fl (80-100); Mean Platelet Volume 10.6 fl (7.4-10.4); Monocytes Absolute Auto 0.3 K/mm3 (0.1-0.6); Monocytes Percent Auto 3.3 % (2.6-8.5); Neutrophils Absolute Auto 7.8 K/mm3 (1.3-6.7); Platelet Count Result 241 k/mm3 (150-375); Red Blood Count 3.88 M/mm3 (4.6-6.20); Red Cell Distribution Width 13.9 % (11.5-14.5); White Blood Count 8.7 K/mm3 (4.5-10.0)
[2023-06-12 01:00] LABS: INR 1.3; Prothrombin Time 16.7 Seconds (11.1-14.7)
[2023-06-12 01:29] LABS: Glucose Point of Care 346 mg/dl (65-105)
[2023-06-12 01:51] LABS: Partial Thromboplastin Time > 200.0 SECONDS (22.3-36.8)
--- NOTE | 2023-06-12 06:39 | PC.NURSE ---
Pt accepted to [facility] CCU Bed #7. Report called to Cindy DIAZ who raised concerns for pts elevated blood glucose. VALENTIN Holder made aware, no new orders.
[2023-06-12 06:55] LABS: INR 1.2; Prothrombin Time 15.2 Seconds (11.1-14.7)
[2023-06-12 06:57] LABS: Partial Thromboplastin Time 96.1 SECONDS (22.3-36.8)
== END 2023-06-12 07:28 | disposition short-term general hospital (02) ==
PROVIDERS: Emergency Medicine; Emergency Provider Student in an Organized Health Care Education/Training Program; PCP Internal Medicine
DX: I13.0 Hypertensive heart and chronic kidney disease with heart failure and stage 1 through stage 4 chronic kidney disease, or unspecified chronic kidney disease (principal); I50.9 Heart failure, unspecified; R06.03 Acute respiratory distress; I21.4 Non-ST elevation (NSTEMI) myocardial infarction; I25.10 Atherosclerotic heart disease of native coronary artery without angina pectoris; Z20.822 Contact with and (suspected) exposure to COVID-19; E11.22 Type 2 diabetes mellitus with diabetic chronic kidney disease; N18.9 Chronic kidney disease, unspecified; J44.9 Chronic obstructive pulmonary disease, unspecified; E11.51 Type 2 diabetes mellitus with diabetic peripheral angiopathy without gangrene; I73.9 Peripheral vascular disease, unspecified; F17.210 Nicotine dependence, cigarettes, uncomplicated; R00.0 Tachycardia, unspecified; R94.31 Abnormal electrocardiogram [ECG] [EKG]
CPT/HCPCS: 36415; 36600; 71045; 80053; 82805; 82948; 83605; 83880; 84484; 85025; 85380; 85610; 85730; 87040; 87637; 93005; 94002; 94640; 96365; 96366; 96367; 96375; 99285; A9270; J0696; J1644; J1940; J7040

== ENCOUNTER 2023-07-11 14:07 | Outpatient (CLI) | payer MEDICARE, SELFPAY ==
[2023-07-11 18:21] LABS: Appearance Urine Clear (Clear); Bacteria Urine None Seen /hpf; Bilirubin Urine Negative (Negative); Blood Urine Negative (Negative); Color Urine Yellow (Yellow); Glucose Urine UA 3+ mg/dL (Negative); Ketones Urine Negative (Negative); Leukocyte Esterase Ur Negative LEU/UL (Negative); Nitrate Urine Negative (Negative); Non Pathogenic Casts 0-2; Protein Urine 2+ mg/dL (Negative); RBC Urine 0-2 /hpf (0-2); Specific Grav Ur 1.015 (1.001-1.035); Squamous Epithelial Cell Urine None seen /hpf (Few); Urobilinogen Urine 0.2 mg/dL (<2.0); WBC Urine 0-5 /hpf; pH Urine 5.5 (5.0-9.0)
[2023-07-11 18:23] LABS: Add Urine Microscopic? YES
[2023-07-11 18:51] LABS: Albumin Level 3.9 g/dL (3.5-5.1); Anion Gap 8 mmol/L (8-16); Blood Urea Nitrogen 32 mg/dL (9-20); Calcium 8.4 mg/dL (8.4-10.2); Carbon Dioxide 29 mmol/L (22-30); Chloride 96 mmol/L (98-107); Estimated Glomerular Filt Rate 32; Glucose 330 mg/dL (65-110); Magnesium 2.1 mg/dL (1.6-2.3); Phosphorus 4.5 mg/dL (2.5-4.5); Potassium 3.8 mmol/L (3.4-5.0); Sodium 133 mmol/L (137-145)
== END 2023-07-11 14:08 | disposition home or self-care (01) ==
LOC: ANHGOSHLAB 14:11
PROVIDERS: PCP Internal Medicine
DX: R60.9 Edema, unspecified (principal); I42.9 Cardiomyopathy, unspecified; I10 Essential (primary) hypertension
CPT/HCPCS: 36415; 80069; 81001; 83735

== ENCOUNTER 2023-10-11 11:56 | Outpatient (CLI) | payer MEDICARE, SELFPAY ==
[2023-10-11 13:59] LABS: Hematocrit 40.4 % (42.0-52.0); Hemoglobin 13.2 g/dL (14.0-18.0); Mean Corpuscular HGB Conc 32.7 g/dl (32-36); Mean Corpuscular Hemoglobin 29.7 pg (26-34); Mean Corpuscular Volume 90.8 fl (80-100); Mean Platelet Volume 10.9 fl (7.4-10.4); Platelet Count Result 242 k/mm3 (150-375); Red Blood Count 4.45 M/mm3 (4.6-6.20); Red Cell Distribution Width 13.3 % (11.5-14.5); White Blood Count 11.9 K/mm3 (4.5-10.0)
[2023-10-11 14:12] LABS: Complement C3 112 mg/dL (88-165)
[2023-10-11 14:14] LABS: Alanine Aminotransferase 16 U/L (6-50); Albumin Level 4.8 g/dL (3.5-5.1); Alkaline Phosphatase 109 U/L (38-126); Anion Gap 15 mmol/L (4-12); Aspartate Amino Transferase 50 U/L (17-59); Bilirubin,Total 0.9 mg/dL (0.2-1.3); Blood Urea Nitrogen 36 mg/dL (9-20); Calcium 8.8 mg/dL (8.4-10.2); Carbon Dioxide 25 mmol/L (22-30); Chloride 99 mmol/L (98-107); Cholesterol 147 mg/dL (0-200); Estimated Glomerular Filt Rate 24; Glucose 275 mg/dL (65-110); HDL Direct 32 mg/dL; Magnesium 2.2 mg/dL (1.6-2.3); Potassium 3.3 mmol/L (3.4-5.0); Sodium 139 mmol/L (137-145); Triglycerides 314 mg/dL (<150)
[2023-10-11 14:15] LABS: Albumin Level 4.8 g/dL (3.5-5.1); Anion Gap 12 mmol/L (4-12); Blood Urea Nitrogen 35 mg/dL (9-20); Calcium 8.8 mg/dL (8.4-10.2); Carbon Dioxide 26 mmol/L (22-30); Chloride 99 mmol/L (98-107); Creatine Kinase 66 U/L (55-170); Estimated Glomerular Filt Rate 24; Glucose 274 mg/dL (65-110); Parathyroid Intact 253.5 pg/mL (7.5-53.5); Phosphorus 4.1 mg/dL (2.5-4.5); Potassium 3.4 mmol/L (3.4-5.0); Sodium 137 mmol/L (137-145)
[2023-10-11 14:17] LABS: Appearance Urine Clear (Clear); Bacteria Urine None Seen /hpf; Bilirubin Urine Negative (Negative); Blood Urine Negative (Negative); Color Urine Yellow (Yellow); Glucose Urine UA 3+ mg/dL (Negative); Ketones Urine Negative (Negative); Leukocyte Esterase Ur Negative LEU/UL (Negative); Nitrate Urine Negative (Negative); Non Pathogenic Casts 0-2; Protein Urine 1+ mg/dL (Negative); RBC Urine 0-2 /hpf (0-2); Specific Grav Ur 1.013 (1.001-1.035); Squamous Epithelial Cell Urine None Seen /hpf (Few); Urobilinogen Urine 0.2 mg/dL (<2.0); WBC Urine 0-5 /hpf (0-3)
[2023-10-11 14:23] LABS: Add Urine Microscopic? YES
[2023-10-11 14:29] LABS: LDL Cholesterol Direct 67 mg/dL
[2023-10-11 14:38] LABS: Erythrocyte Sedimentation Rate 25 mm/hr (0-20)
[2023-10-11 14:39] LABS: Creatinine Urine 27.6 mg/dL; Total Protein Urine Random 67 mg/dL; Ur Ttl Prot Creatinine Ratio 2.43 mg/mg (0-0.20)
[2023-10-11 15:25] LABS: Hemoglobin A1C 8.2 % (<5.7)
[2023-10-12 11:58] LABS: Kappa\\Lambda Light Chains 1.62 (0.26-1.65); Lambda Light Chain 32.2 mg/L (5.7-26.3)
[2023-10-12 13:13] LABS: Complement Total CH50 56 U/mL (31-60)
[2023-10-18 14:58] LABS: Immunofixation, Serum Normal pattern.
== END 2023-10-11 11:57 | disposition home or self-care (01) ==
PROVIDERS: Internal Medicine Nephrology; PCP Internal Medicine; Visit Provider Internal Medicine Cardiovascular Disease
DX: E78.5 Hyperlipidemia, unspecified (principal); N18.32 Chronic kidney disease, stage 3b; E11.69 Type 2 diabetes mellitus with other specified complication
CPT/HCPCS: 36415; 80053; 80061; 80069; 81001; 82550; 82570; 83036; 83735; 83883; 83970; 84100; 84156; 85027; 85652; 86038; 86160; 86162; 86334

== ENCOUNTER 2023-10-13 08:03 | Outpatient (NON) | payer MEDICARE, SELFPAY ==
[2023-10-14 06:14] LABS: Total Volume 24 Hour Urine 1500 ml; Urea Nitrogen 24 Hour Urine 4.9 G/DAY (12-20)
== END 2023-10-13 08:04 | disposition home or self-care (01) ==
PROVIDERS: PCP Internal Medicine; Visit Provider Internal Medicine Nephrology
DX: N18.32 Chronic kidney disease, stage 3b (principal)
CPT/HCPCS: 81050; 84540; 86335

== ENCOUNTER 2023-10-13 09:01 | Outpatient (CLI) | payer MEDICARE, SELFPAY ==
[2023-10-13 09:27] LABS: Alveolar/Arterial O2 Gradient 7.9 mmHg; Base Excess ABG 1.1 mEq/l (+/-2.0); Carboxyhemoglobin 0.4 % THb (0-2.0); Fractional Inspired Oxygen 21 %; HCO3 ABG 23.9 mEq/l (22.0-26.0); Methemoglobin ABG 0.3 %THb (0-1.5); Oxygen Content ABG 17.6 %vol (16.0-22.0); Oxygen Saturation ABG 98.1 % (95.0-100.0); Oxyhemoglobin 97.3 % THb (90.0-100.0); PCO2 ABG 32.4 mmHg (35.0-45.0); Total Hemoglobin 12.8 g/dL (12.0-18.0); pH ABG 7.486 (7.350-7.450)
[2023-10-13 09:29] LABS: Device ROOM AIR; Modified Allen's Test Pass
--- NOTE | 2023-10-14 12:17 | WPDPFTINT ---
PFT Procedure Performed PFT Procedure Performed Spirometry with Pre/Post Bronchodilator Plethysmography (Lung Vol) Diffusing Cap (DLCO) Flow Vol Loop PFT Interpretation Lung volumes were measured with the body plethysmography method. Lung volumes are unremarkable. Spirometry showed a normal forced vital capacity but a borderline low FEV1. The FEV1 to FVC ratio was within the normal range at 64% predicted. The borderline diminished FEV1 coupled with a normal FEV1 to FVC ratio and a normal total lung capacity is indicative of a nonspecific pattern. Following administration of a bronchodilator there was no significant increase in the expiratory flow rates. Lung diffusion capacity is moderately reduced at 46% predicted. The diminished lung diffusion capacity in conjunction with a borderline low alveolar volume and a low DLCO/VA ratio may suggest loss of alveolar capillary structure as seen in early emphysema or interstitial lung disease. Clinical correlation advised. Impression: Nonspecific pattern. Moderately reduced lung diffusion capacity.
--- NOTE | 2023-10-14 12:34 | WPDSIXMINUTE ---
Six Minute Walk Procedure Procedure Performed Pulmonary Stress Test (6 min walk) Six Minute Walk Six Minute Walk: This 6 minute walk test was carried out with the patient breathing ambient air. The baseline pre walk oxyhemoglobin saturation was 98%. The patient walked 244 m with no stops during testing. During the walk the oxyhemoglobin saturation remained in the range of 96% to 98%. Impression: No evidence of oxyhemoglobin desaturation on this testing.
== END 2023-10-13 09:02 | disposition home or self-care (01) ==
LOC: ANHPFT 09:03
PROVIDERS: PCP Internal Medicine; Visit Provider Internal Medicine Pulmonary Disease
DX: J44.9 Chronic obstructive pulmonary disease, unspecified (principal)
CPT/HCPCS: 36600; 82375; 82805; 83050; 94060; 94618; 94726; 94729

== ENCOUNTER 2023-11-08 15:11 | Outpatient (CLI) | payer MEDICARE, SELFPAY ==
[2023-11-08 15:56] LABS: Appearance Urine Clear (Clear); Bacteria Urine None Seen /hpf; Bilirubin Urine Negative (Negative); Blood Urine Negative (Negative); Color Urine Yellow (Yellow); Glucose Urine UA 3+ mg/dL (Negative); Ketones Urine Negative (Negative); Leukocyte Esterase Ur Negative LEU/UL (Negative); Nitrate Urine Negative (Negative); Non Pathogenic Casts 0-2; Protein Urine 1+ mg/dL (Negative); RBC Urine 0-2 /hpf (0-2); Specific Grav Ur 1.012 (1.001-1.035); Squamous Epithelial Cell Urine None Seen /hpf (Few); Urobilinogen Urine 0.2 mg/dL (<2.0); WBC Urine 0-5 /hpf (0-3); pH Urine 6.5 (5.0-9.0)
[2023-11-08 15:58] LABS: Add Urine Microscopic? YES
[2023-11-08 15:59] LABS: Albumin Level 4.8 g/dL (3.5-5.1); Anion Gap 13 mmol/L (4-12); Blood Urea Nitrogen 41 mg/dL (9-20); Carbon Dioxide 27 mmol/L (22-30); Chloride 97 mmol/L (98-107); Estimated Glomerular Filt Rate 23; Glucose 265 mg/dL (65-110); Phosphorus 4.9 mg/dL (2.5-4.5); Potassium 3.5 mmol/L (3.4-5.0); Sodium 137 mmol/L (137-145)
[2023-11-08 16:10] LABS: Rheumatoid Factor < 12.0 IU/ML (<12)
[2023-11-08 16:55] LABS: Erythrocyte Sedimentation Rate 25 mm/hr (0-20)
[2023-11-09 13:08] LABS: SM Antibody <1.0 NEG AI (<1.0 NEG); SM/RNP Antibody <1.0 NEG AI (<1.0 NEG); SS-A <1.0 NEG AI (<1.0 NEG); SS-B <1.0 NEG AI (<1.0 NEG)
[2023-11-10 10:07] LABS: Anti Nuclear Antibody Pattern Nuclear, Homogeneous
[2023-11-11 10:12] LABS: ANCA Screen NEGATIVE (NEGATIVE)
[2023-11-11 14:28] LABS: Anti Glomerular Basement Memb <1.0 AI
[2023-11-14 18:54] LABS: Cryoglobulin, QL Negative (Negative)
== END 2023-11-08 15:12 | disposition home or self-care (01) ==
LOC: ANHLAB 15:19
PROVIDERS: PCP Internal Medicine; Visit Provider Internal Medicine Nephrology
DX: R76.0 Raised antibody titer (principal); N18.32 Chronic kidney disease, stage 3b
CPT/HCPCS: 36415; 80069; 81001; 82595; 83520; 85652; 86036; 86038; 86039; 86225; 86235; 86430

== ENCOUNTER 2024-02-07 11:20 | Outpatient (CLI) | payer OTHER, SELFPAY ==
[2024-02-07 15:09] LABS: Parathyroid Intact 146.1 pg/mL (14.5-75.2)
[2024-02-07 15:16] LABS: Total Protein Urine Random 45 mg/dL; Ur Ttl Prot Creatinine Ratio 1.96 mg/mg (0-0.20)
[2024-02-07 15:28] LABS: Vitamin D 25 Hydroxy 23.1 ng/mL
[2024-02-07 16:06] LABS: Hematocrit 40.2 % (42.0-52.0); Hemoglobin 12.7 g/dL (14.0-18.0); Mean Corpuscular HGB Conc 31.6 g/dl (32-36); Mean Corpuscular Hemoglobin 29.3 pg (26-34); Mean Corpuscular Volume 92.6 fl (80-100); Mean Platelet Volume 10.5 fl (7.4-10.4); Platelet Count Result 218 k/mm3 (150-375); Red Blood Count 4.34 M/mm3 (4.6-6.20); Red Cell Distribution Width 14.5 % (11.5-14.5); White Blood Count 10.4 K/mm3 (4.5-10.0)
[2024-02-07 17:18] LABS: Albumin Level 4.4 g/dL (3.5-5.1); Anion Gap 13 mmol/L (4-12); Blood Urea Nitrogen 40 mg/dL (9-20); Calcium 8.6 mg/dL (8.4-10.2); Carbon Dioxide 29 mmol/L (22-30); Chloride 93 mmol/L (98-107); Estimated Glomerular Filt Rate 24; Glucose 188 mg/dL (65-110); Phosphorus 4.1 mg/dL (2.5-4.5); Potassium 3.9 mmol/L (3.4-5.0); Sodium 135 mmol/L (137-145)
== END 2024-02-07 11:21 | disposition home or self-care (01) ==
PROVIDERS: PCP Internal Medicine; Visit Provider Internal Medicine Nephrology
DX: E11.69 Type 2 diabetes mellitus with other specified complication (principal); E21.1 Secondary hyperparathyroidism, not elsewhere classified; N18.4 Chronic kidney disease, stage 4 (severe)
CPT/HCPCS: 36415; 80069; 82306; 82570; 83970; 84156; 85027

== ENCOUNTER 2024-02-18 10:24 | Inpatient (IN) | payer OTHER, SELFPAY ==
[2024-02-18] VITALS (24 sets, daily range): BP systolic 139–208; BP diastolic 57–90; PULSE 70–94; RESP 13–40; TEMP 36.3–36.6; O2SAT 90–100; BMI 20.7
--- NOTE | ~2024-02-18 | XR_ITS ---
EXAMINATION: XR chest 2V DATE: 02/18/2024 11:22 INDICATION: Shortness of breath TECHNIQUE: PA and lateral views of the chest were obtained. COMPARISON: Chest radiograph dated 06/11/2023 FINDINGS: Interstitial and airspace opacities in the posterior lower lung zones. Small bilateral pleural effusi ons. No pneumothorax. Borderline heart size. Moderate thoracic spondylosis with chronic mild anterior wedging of a midthoracic vertebral body. IMPRESSION: 1. Opacities in the dependent lower lungs which could represent mild pulmonary edema, pneumonia or at electasis. 2. Small bilateral pleural effusions. 3. Borderline heart size. Reviewed, dictated and finalized at location A. IMPRESSION: 1. Opacities in the dependent lower lungs which could represent mild pulmonary edema, pneumonia or atelectasis. 2. Small bilateral pleural effusions. 3. Borderline heart size.
--- NOTE | 2024-02-18 10:38 | ECG_ITS ---
Test Date: 2024-02-18 10:41:36 Measurements Intervals [place] Rate: 86 P: 69 ME: 138 QRS: 12 QRSD: 110 T: 143 QT: 391 QTc: 469 Interpretive Statements SINUS RHYTHM POSSIBLE LEFT ATRIAL ENLARGEMENT VOLTAGE CRITERIA FOR LVH ST-T WAVE ABNORMALITY IN ANTEROLAT/HIGH LAT LEADS- CONSIDER ISCHEMIA BASELINE ARTIFACT- III, V4-V6 ABNORMAL ECG No previous ECG available for comparison Electronically Signed On 02-18-2024 15:51:48 CDT by Kevin Armijo D.O.
[2024-02-18 10:57] LABS: Basophils Absolute Auto 0.1 K/mm3 (0.0-0.1); Basophils Percent Auto 0.8 % (0.2-1.2); Eosinophils Absolute Auto 0.2 K/mm3 (0-0.3); Eosinophils Percent Auto 1.6 % (0-4.4); Hematocrit 37.6 % (42.0-52.0); Hemoglobin 12.4 g/dL (14.0-18.0); Immature Granulocyte Absolute 0.09 K/mm3 (0.00-0.031); Immature Granulocyte Percent A 0.9 % (0-0.5); Lymphocytes Absolute Auto 1.12 K/mm3 (0.9-3.2); Lymphocytes Percent Auto 11.1 % (18.3-44.2); Mean Corpuscular Hemoglobin 30.2 pg (26-34); Mean Corpuscular Volume 91.7 fl (80-100); Mean Platelet Volume 10.3 fl (7.4-10.4); Monocytes Absolute Auto 0.8 K/mm3 (0.1-0.6); Monocytes Percent Auto 7.4 % (2.6-8.5); Neutrophils Absolute Auto 7.9 K/mm3 (1.3-6.7); Neutrophils Percent Auto 78.2 % (45.5-73.1); Platelet Count Result 201 k/mm3 (150-375); Red Cell Distribution Width 14.6 % (11.5-14.5); White Blood Count 10.1 K/mm3 (4.5-10.0)
[2024-02-18 11:06] LABS: Alanine Aminotransferase 14 U/L (6-50); Albumin Level 4.3 g/dL (3.5-5.1); Alkaline Phosphatase 76 U/L (38-126); Anion Gap 13 mmol/L (4-12); Aspartate Amino Transferase 20 U/L (17-59); Bilirubin,Total 0.9 mg/dL (0.2-1.3); Blood Urea Nitrogen 41 mg/dL (9-20); Calcium 8.5 mg/dL (8.4-10.2); Carbon Dioxide 26 mmol/L (22-30); Chloride 99 mmol/L (98-107); Estimated CRCL calculation 15 ml/min; Estimated Glomerular Filt Rate 20; Glucose 173 mg/dL (65-110); Potassium 3.9 mmol/L (3.4-5.0); Sodium 138 mmol/L (137-145)
[2024-02-18 11:42] LABS: Influenza A QL RT-PCR Negative (Negative); Influenza B QL RT-PCR Negative (Negative); RSV RNA, RT-PCR Negative (Negative); SARS-CoV-2 RNA PCR Negative (Negative)
[2024-02-18 12:25] LABS: NT Pro B Type Natriuretic Pept 14800 pg/mL (19.9-100)
--- NOTE | 2024-02-18 13:59 | ED.SOB ---
HPI - SOB/Dyspnea General Chief Complaint: Shortness of Breath/Dyspnea Stated Complaint: sob Time Seen by Provider: 02/18/24 10:47 History of Present Illness HPI Narrative: Patient is a 79-year-old male who presents to the ER with shortness of breath. Woke up this morning and his oxygen saturation was in 80s and he was short of breath. No fevers or chills or sweats. He does have cough that is productive of clear mucus. No chest pain. Patient does have history of congestive heart failure. Reports compliance with home medications. He did use nebulizer treatment that helped him. Related Data Home Medications Medication Instructions Recorded Confirmed aspirin 81 mg tablet,delayed 81 mg PO DAILY 12/04/19 02/18/24 release (Adult Low Dose Aspirin) albuterol sulfate 90 mcg/actuation 2 puff inhalation TID PRN 05/08/23 02/18/24 aerosol inhaler Shortness Of Breath Or Wheezing omega 6-[id number]-fish oil 1,000 mg 1 cap PO DAILY 11/17/23 02/18/24 (120 mg-180 mg) capsule (Fish Oil) cholecalciferol (vitamin D3) 50 50 mcg PO HS 02/14/24 02/18/24 mcg (2,000 unit) capsule lisinopril 5 mg tablet 5 mg PO HS 02/18/24 02/18/24 metoprolol succinate 25 mg 25 mg PO Q12H 02/18/24 02/18/24 tablet,extended release 24 hr (Toprol XL) pantoprazole 40 mg tablet,delayed 40 mg PO DAILY 02/18/24 02/18/24 release tamsulosin 0.4 mg capsule 0.4 mg PO DAILY 02/18/24 02/18/24 Allergies Allergy/AdvReac Type Severity Reaction Status Date / Time No Known Allergies Allergy Unknown Verified 02/14/24 11:53 Review of Systems Review of Systems: All systems reviewed & are unremarkable except as noted in HPI and below Constitutional: Constitutional: Reports no additional constitutional complaints ENT: Reports system reviewed and no additional complaints, except as documented Cardiovascular: Cardiovascular: Reports no additional cardiovascular complaints Respiratory: Respiratory: Reports chest congestion, Reports cough, Reports dyspnea and Reports wheezing Gastrointestinal: Gastrointestinal: Reports no additional gastrointestinal complaints PMFSH Past Medical History Medical History Allergies Anxiety CAD (coronary artery disease) Carotid stenosis, bilateral Chronic kidney disease COPD (chronic obstructive pulmonary disease) Depression due to physical illness DVT (deep venous thrombosis) Emphysema lung History of MS (myocardial infarction) Hyperlipidemia due to dietary fat intake Hypertension Non-ST elevation myocardial infarction (NSTEMI) 05/08/2023 and 06/11/2023 Peripheral artery disease Protein-calorie malnutrition, mild Renal artery stenosis Stroke 05/12/2007 10/17/2016 02/12/2019 Tobacco dependence Type 2 diabetes mellitus Surgical History Surgical History H/O cardiac catheterization @[facility] History of tonsillectomy Family History Family History Mother Family history of diabetes mellitus in first degree relative Cerebrovascular accident Father Family history of emphysema Sibling Family history of malignant neoplasm Social History Social History Social History: Surrogate medical decision maker: Cheryledna Duval, spouse. Code status: Full code. Smoking packs per day: 0.25 Smoking cigarettes per day: 5.0 Years smoked: 50 Smoking pack-years: 12.50 Smoking status: Former smoker Alcohol intake: never Substance use: never Do You Feel Safe in your Home?: Yes Lack of Transportation: No Lack of Food: Never True Current Housing: I Have Housing Concerned About Future Housing: No Difficulty Paying Gas/Electric Bills: No Difficulty Paying for Meds: No Currently Unemployed: No Education: High School Diploma/GED Difficulty w/ Childcare or Family Care: No Li
[2024-02-18] MEDS: FUROSEMIDE INJ 40 MG/4 ML VIAL IV PUSH (14:18)
--- NOTE | 2024-02-18 14:48 | PM.IMHP ---
H&P: HPI History of Present Illness Date/Time: 02/18/24 14:48 Chief Complaint: Shortness of Breath Narrative: 79 y/o M presents here with SOB with PMH of CAD with stent placement (most recent in June of 2023), CKD, PR, HLD, HTN, PAD, renal artery stenosis, stroke, and type 2 diabetes. The patient presents here from home for further evaluation of shortness of breath and cough. Patient reports the shortness of breath has been progressively getting worse over the last 2-3 days. Cough started on 3-4 days ago, denies hx of chronic cough. He reports that has been productive yielding light yellow sputum. Patient's son checked his pulse ox at home which read that it was in the 80s on room air. Patient to utilize a nebulizer at home prior to arrival to the emergency department. Arrived to 97% on RA. No swelling to his lower extremities. Denies chest pain, palpitations, dizziness, fever, chills or body aches. Patient reports previous hx of smoking, 1/2 PPD for 40+ years, and quit 1 year ago. Patient denies previous diagnosis of COPD, however CXR on 06/11/2023 showed questionable underlying COPD or chronic interstitial lung disease. Initial VS at presentation: 97.6? F, HR 87, RR 20, to 8/80, and 97% on RA. ED workup showed: WBC 10.1, hemoglobin 12.4 (at baseline), creatinine 3.0 and GFR 20 (previously 2.6 and GFR 24 on 02/07/2024), glucose 173, and BNP 43119. Viral PCR negative. CXR showed opacities in the dependent lower lung zones which could represent mild pulmonary edema versus pneumonia versus atelectasis, small bilateral pleural effusions, and borderline heart size. Review of Systems Review of Systems: All systems reviewed & are unremarkable except as noted in HPI and below [facility] Past Medical History Medical History Allergies Anxiety CAD (coronary artery disease) Carotid stenosis, bilateral Chronic kidney disease COPD (chronic obstructive pulmonary disease) Depression due to physical illness DVT (deep venous thrombosis) Emphysema lung History of PR (myocardial infarction) Hyperlipidemia due to dietary fat intake Hypertension Non-ST elevation myocardial infarction (NSTEMI) 05/08/2023 and 06/11/2023 Peripheral artery disease Protein-calorie malnutrition, mild Renal artery stenosis Stroke 05/12/2007 10/17/2016 02/12/2019 Tobacco dependence Type 2 diabetes mellitus Surgical History Surgical History H/O cardiac catheterization @[facility] History of tonsillectomy Family History Family History Mother Family history of diabetes mellitus in first degree relative Cerebrovascular accident Father Family history of emphysema Sibling Family history of malignant neoplasm Social History Social History Social History: Surrogate medical decision maker: Cheryl Simin, spouse. Code status: Full code. Smoking packs per day: 0.25 Smoking cigarettes per day: 5.0 Years smoked: 50 Smoking pack-years: 12.50 Smoking status: Former smoker Alcohol intake: never Substance use: never Do You Feel Safe in your Home?: Yes Lack of Transportation: No Lack of Food: Never True Current Housing: I Have Housing Concerned About Future Housing: No Difficulty Paying Gas/Electric Bills: No Difficulty Paying for Meds: No Currently Unemployed: No Education: High School Diploma/GED Difficulty w/ Childcare or Family Care: No Living arrangements: with family Occupation/Education: retired Gender identity (if verbalized by the patient): Male Sexual Orientation (if Verbalized by the Patient): Straight or Heterosexual Spiritual care concerns: No Meds Home Medications and Allergies Home Medications Medication Instructions Recorded Confirmed Type aspirin 81 mg ta
--- NOTE | 2024-02-18 15:55 | ADMGEN ---
This patient, Silvano Duval, was admitted to [facility] Surg Room 326-01. Patient/family oriented to hospital policies and general routines including ID bracelet, bed and alarms, visiting hours, pain management, procedures, bathroom and other care routines, personal items, smoking policy, room service/diet, and visiting hours. Information on how to activate the Rapid Response Team has been discussed. Patient/Family are encouraged to report perceived risks to care and to ask questions if they do not understand what they are told or what they should do.
[2024-02-18 16:41] LABS: Glucose Point of Care 82 mg/dl (65-105)
[2024-02-18] MEDS: IPRATROPIUM 0.5 MG/ALBUTEROL SULFATE 2.5 MG AMPUL.NEB 3 ML INHALATION ×2 (18:19→21:56)
[2024-02-18] MEDS: SODIUM CHLORIDE 0.9% IV 1,000 ML 100 ML IV CONT (18:39)
--- NOTE | 2024-02-18 18:39 | PCRCNOTE ---
pt found on room air with a oxygen saturation of 87%. Pt was given a breathing tx and placed on 2L. Pt states he wears 2L at night at home. Oxygen sats improved to 97% on 2L
[2024-02-18] MEDS: predniSONE 20 MG TABLET 40 MG PO (18:43)
[2024-02-18] MEDS: ATORVASTATIN 40 MG TABLET PO (18:43)
[2024-02-18] MEDS: AZITHROMYCIN 500 MG/NS 250 ML 500 MG/250 ML BAG 250 MG IVPB (18:43)
[2024-02-18] MEDS: TICAGRELOR 90 MG TABLET PO (20:04)
[2024-02-18] MEDS: lisinopriL 5 MG TABLET PO (20:04)
[2024-02-18] MEDS: CHOLECALCIFEROL 1,000 UNITS TABLET 2000 UNITS PO (20:05)
[2024-02-18 20:19] LABS: Glucose Point of Care 292 mg/dl (65-105)
[2024-02-19] VITALS (19 sets, daily range): BP systolic 121–176; BP diastolic 47–100; PULSE 68–115; RESP 20; TEMP 36.4–36.7; O2SAT 93–98
--- NOTE | 2024-02-19 01:04 | ECG_ITS ---
Test Date: 2024-02-19 02:02:12 Measurements Intervals [place] Rate: 99 P: 72 KS: 148 QRS: 38 QRSD: 110 T: 192 QT: 385 QTc: 494 Interpretive Statements SINUS RHYTHM INCOMPLETE LEFT BUNDLE BRANCH BLOCK ST-T WAVE ABNORMALITY IN DIFFUSE LEADS- CONSIDER ISCHEMIA ABNORMAL ECG Compared to ECG 02/18/2024 10:41:36 NO SIGNIFICANT CHANGE Electronically Signed On 02-19-2024 06:43:30 CDT by Kevin Armijo D.O.
[2024-02-19 01:56] LABS: Troponin I 0.081 ng/mL (0.000-0.034)
[2024-02-19] MEDS: MELATONIN 3 MG TABLET PO (02:16)
[2024-02-19] MEDS: IPRATROPIUM 0.5 MG/ALBUTEROL SULFATE 2.5 MG AMPUL.NEB 3 ML INHALATION ×4 (03:25→19:53)
--- NOTE | 2024-02-19 04:30 | ECG_ITS ---
Test Date: 2024-02-19 06:35:38 Measurements Intervals [place] Rate: 98 P: 49 LA: 112 QRS: 9 QRSD: 110 T: 180 QT: 386 QTc: 494 Interpretive Statements SINUS RHYTHM POSSIBLE LEFT ATRIAL ENLARGEMENT INTRAVENTRICULAR CONDUCTION DELAY VOLTAGE CRITERIA FOR LVH ST-T WAVE ABNORMALITY IN ANTEROLAT/HIGH LAT LEADS- CONSIDER ISCHEMIA ABNORMAL ECG Compared to ECG 02/19/2024 02:02:12 NO SIGNIFICANT CHANGE Electronically Signed On 02-19-2024 06:45:05 CDT by Kevin Armijo D.O.
[2024-02-19 04:56] LABS: Basophils Percent Auto 0.4 % (0.2-1.2); Eosinophils Percent Auto 0.1 % (0-4.4); Hematocrit 38.6 % (42.0-52.0); Hemoglobin 12.8 g/dL (14.0-18.0); Immature Granulocyte Absolute 0.06 K/mm3 (0.00-0.031); Immature Granulocyte Percent A 0.7 % (0-0.5); Lymphocytes Absolute Auto 0.35 K/mm3 (0.9-3.2); Lymphocytes Percent Auto 4.3 % (18.3-44.2); Mean Corpuscular HGB Conc 33.2 g/dl (32-36); Mean Corpuscular Hemoglobin 30.5 pg (26-34); Mean Corpuscular Volume 91.9 fl (80-100); Mean Platelet Volume 10.4 fl (7.4-10.4); Monocytes Absolute Auto 0.2 K/mm3 (0.1-0.6); Monocytes Percent Auto 2.1 % (2.6-8.5); Neutrophils Absolute Auto 7.6 K/mm3 (1.3-6.7); Neutrophils Percent Auto 92.4 % (45.5-73.1); Platelet Count Result 208 k/mm3 (150-375); Red Cell Distribution Width 14.7 % (11.5-14.5); White Blood Count 8.2 K/mm3 (4.5-10.0)
[2024-02-19 05:07] LABS: Alanine Aminotransferase 19 U/L (6-50); Albumin Level 4.4 g/dL (3.5-5.1); Alkaline Phosphatase 72 U/L (38-126); Anion Gap 17 mmol/L (4-12); Aspartate Amino Transferase 23 U/L (17-59); Bilirubin,Total 0.7 mg/dL (0.2-1.3); Blood Urea Nitrogen 41 mg/dL (9-20); Calcium 8.6 mg/dL (8.4-10.2); Carbon Dioxide 21 mmol/L (22-30); Chloride 98 mmol/L (98-107); Estimated CRCL calculation 16 ml/min; Estimated Glomerular Filt Rate 21; Glucose 307 mg/dL (65-110); Potassium 4.1 mmol/L (3.4-5.0); Sodium 136 mmol/L (137-145)
[2024-02-19 05:23] LABS: Troponin I 0.107 ng/mL (0.000-0.034)
[2024-02-19 05:26] LABS: Hemoglobin A1C 7.3 % (<5.7)
[2024-02-19] MEDS: glipiZIDE 5 MG TABLET PO (05:57)
[2024-02-19 07:50] LABS: Glucose Point of Care 277 mg/dl (65-105)
[2024-02-19] MEDS: INSULIN ASPART (*BKC) 100 UNITS/ML SUB-Q ×3 (08:44→16:51)
[2024-02-19] MEDS: TAMSULOSIN HCL 0.4 MG CAPSULE PO (08:45)
[2024-02-19] MEDS: EMPAGLIFLOZIN 25 MG TABLET PO (08:45)
[2024-02-19] MEDS: ISOSORBIDE MONONITRATE 20 MG TABLET PO ×2 (08:45→16:51)
[2024-02-19] MEDS: ASPIRIN 81 MG ENTERIC TABLET PO (08:45)
[2024-02-19] MEDS: predniSONE 20 MG TABLET 40 MG PO (08:45)
[2024-02-19] MEDS: OMEGA 3 POLYUNSAT FATTY ACIDS 1 GM CAP PO (08:45)
[2024-02-19] MEDS: BENZONATATE 100 MG CAPSULE PO (08:45)
[2024-02-19] MEDS: METOPROLOL SUCCINATE EXT REL 50 MG TABCR PO (08:46)
[2024-02-19] MEDS: TICAGRELOR 90 MG TABLET PO ×2 (08:46→20:08)
[2024-02-19] MEDS: PANTOPRAZOLE 40 MG TABLET PO (08:46)
[2024-02-19 09:12] LABS: Troponin I 0.198 ng/mL (0.000-0.034)
--- NOTE | 2024-02-19 10:49 | PM.IMPN ---
Progress Note: A&P Assessment and Plan (1) Acute respiratory distress: Code(s): R06.03 - Acute respiratory distress Status: Acute Assessment and Plan: - CXR: 1. Opacities in the dependent lower lungs which could represent mild pulmonary edema, pneumonia or atelectasis. 2. Small bilateral pleural effusions. 3. Borderline heart size. - given sputum production and cough, suspect COPD exacerbation/pneumonia vs CHF exacerbation. continue steroids and -continue ABX. Suspect ALLEN superimposed on CKD related to dehydration versus volume overload. Will hold Lasix and administer slow fusion of IV fluids. - viral PCR negative - -continue to monitor CBC (2) COPD (chronic obstructive pulmonary disease): Qualifiers: COPD type: unspecified COPD Qualified Code(s): J44.9 - Chronic obstructive pulmonary disease, unspecified Code(s): J44.9 - Chronic obstructive pulmonary disease, unspecified Status: Acute Assessment and Plan: - patient denied previous history of COPD, however pulmonology note on 10/03/2023 reported COPD - suspect exacerbation given increased sputum production and wheezing prior to arrival - starting scheduled nebs, ceftriaxone/azithromycin, and p.o. steroids - no supplemental O2 requirement at this time (3) Congestive heart failure: Qualifiers: Heart failure chronicity: chronic Heart failure type: systolic Qualified Code(s): I50.22 - Chronic systolic (congestive) heart failure Code(s): I50.9 - Heart failure, unspecified Status: Chronic Assessment and Plan: - BNP 14,800, previously 27,600 on 06/11/2023 - most recent echo (06/12/2023): EF estimated at 45% with mild global left ventricular systolic dysfunction. See report for details. - update echo - s/p: 40 IVP of Lasix in the ED. - daily weights and monitor I&Os - continue trend renal function (4) CKD (chronic kidney disease): Qualifiers: Chronic kidney disease stage: stage 3 (moderate) Chronic kidney disease stage 3 subtype: stage 3b (GFR 30-44) Qualified Code(s): N18.32 - Chronic kidney disease, stage 3b Code(s): N18.9 - Chronic kidney disease, unspecified Status: Chronic Assessment and Plan: - ALLEN superimposed on CKD - creatinine 2.9 and GFR 21, previously 2.6 and GFR 24 on 02/07/2024 - may be secondary to dehydration, does not appear volume overloaded on exam. continue IV fluids at 100 mL/hour x1 L. - trend renal function - trend electrolytes, correct as needed -may consider nephrology in the a.m. (5) Diabetes mellitus: Qualifiers: Diabetes mellitus complication status: with other specified complication Diabetes mellitus long term care administrator insulin use: without senior living use Diabetes mellitus type: type 2 Qualified Code(s): E11.69 - Type 2 diabetes mellitus with other specified complication Code(s): E11.9 - Type 2 diabetes mellitus without complications Status: Chronic Assessment and Plan: - hypoglycemia protocol - POC blood glucose ACHS - home medication: Jardiance, glipizide *hold glipizide - correct regimen ordered - high dose TIDWM, steroids initiated. - A1C 8.2% on 10/11/2023, update (6) Hypertension: Qualifiers: Hypertension type: secondary to other renal disorders Qualified Code(s): I15.1 - Hypertension secondary to other renal disorders Code(s): I10 - Essential (primary) hypertension Status: Chronic Assessment and Plan: - chronic, currently 136/100 - continue home medications: Imdur, lisinopril, metoprolol XL - monitor (7) Elevated troponin: Code(s): R79.89 - Other specified abnormal findings of blood chemistry Status: Acute Assessment and Plan: -elevated troponin 0.198, 6 chest demand ischemia, patient denies any chest pain, elevated serum creatinine 2.9 Plan Diet: Heart healthy GI Prophylaxis: Not currently indicate
--- NOTE | 2024-02-19 11:03 | PC.NURSE ---
This nurse received critical troponin 0.198 at 09:11. This nurse called Dr. Maxwell who was listed as this patient's hospitalist list on paper hospitalist list. This nurse was informed by Dr. Maxwell at 10:45 that he does not have this patient and care was given to Kassandra Rodas. Kassandra called at 10:50 with critical troponin. Provider already aware. Plan of care continues.
[2024-02-19 11:33] LABS: Glucose Point of Care 307 mg/dl (65-105)
[2024-02-19] MEDS: LORazepam (*CRX) 0.5 MG TABLET PO (14:03)
[2024-02-19 14:17] LABS: Creatine Kinase 74 U/L (55-170)
--- NOTE | 2024-02-19 16:16 | PM.CNCAR ---
Assessment and Plan Assessment and plan (1) Elevated troponin: Code(s): R79.89 - Other specified abnormal findings of blood chemistry Status: Acute Assessment and Plan: Doubt ACS as no chest pain and hypoxemia. Probably related to type II infarct in setting of pneumonia, hypoxia, CKD. Trend troponin to peak. Obtain echo. (2) Acute dyspnea: Code(s): R06.00 - Dyspnea, unspecified Status: Acute Assessment and Plan: Probably due to pneumonia or COPD. On antibiotics and had neb treatment as per hospitalist. (3) CAD (coronary artery disease): Qualifiers: Coronary Disease-Associated Artery/Lesion type: [place] artery [place] vs. transplanted heart: [place] heart Associated angina: with other forms of angina Qualified Code(s): I25.118 - Atherosclerotic heart disease of [place] coronary artery with other forms of angina pectoris Code(s): I25.10 - Atherosclerotic heart disease of [place] coronary artery without angina pectoris Status: Acute Assessment and Plan: Stable. On dual antiplatelets for stents. (4) Systolic dysfunction: Code(s): I51.9 - Heart disease, unspecified Status: Acute Assessment and Plan: Stable. Chronic. 05/09/23 Echo: EF 40-45%, grade I diastolic dysfunction, mod LVH, mild LAE. On Lasix 40 m PO daily at home to maintain euvolemia. (5) Dyslipidemia: Code(s): E78.5 - Hyperlipidemia, unspecified Status: Acute Assessment and Plan: On Atorvastatin. History of Present Illness History of Present Illness Consult date/time: 02/19/24 16:16 Reason For Visit: Heart failure exacerbation Narrative: 79 yr old man who is my regular cardiology patient presents to ER for sob. He has a history of severe multivessel CAD (not candidate for CABG due to high risk), NSTEMI, PAD, DM, smoking, hypertension, dyslipidemia, COPD, renal artery stenosis. States that in last 2 days he has noted sob and cough with sputum production. His pulse ox showed it dropped to 80%. He had some neb treatment and states he feels better. Normally he can walk 1 block then has [place]. He quit smoking in Jun 2023. Denies chest pain, orthopnea, PND, edema, dizziness, palpitations. Cardiovascular Procedures Senior Ux Developer:: 06/13/[address] 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 LM 70-80%, LAD diffuse disease with severe stenosis in apical segment, LCx prox 80%, RCA with diffuse disease with severe stenosis in mid PDA; PCI to prox LCx and PCI to LM. 05/18/23 [facility] at [place] with Dr. Emanuel: LM 75%, LAD ostial 75%, then diffuse 40%, distal 80%, 1st Diag is tiny, 2nd Diag small with 95%, LCx distal 50%, 2nd OM large with prox 60-70%, 3rd OM small, 4th OM medium with ostial 75%, RCA ostial 75%, then 50% diffuse, distal 75%, PDA small with mid 90%. Echo/MUGA:: 05/09/23 Echo: EF 40-45%, mod LVH, grade I diastolic dysfunction, mild LAE. Review of Systems Review of Systems: All systems reviewed & are unremarkable except as noted in HPI and below Constitutional: Constitutional: Reports as per HPI, Denies chills and Denies fever(s) Cardiovascular: Cardiovascular: Reports as per HPI and Denies chest pain Respiratory: Respiratory: Reports as per HPI, Reports cough and Reports dyspnea Gastrointestinal: Gastrointestinal: Reports as per HPI and Denies abdominal pain Genitourinary: Genitourinary: Reports as per HPI and Denies dysuria Musculoskeletal: Musculoskeletal: Reports as per HPI Neurologic: Reports as per HPI, Denies dizziness and Denies syncope [facility] Past Medical History Medical History Allergies Anxiety CAD (coronary artery disease) Carotid stenosis, bilateral Chronic kidney disease COPD (chronic obstructive pulmonary disease) Depression due to physical illness DVT (deep venous thrombosis) Emphysema lung History of ME (myocardial infarction) Hyperlipidemia due to dietary fat in
[2024-02-19 16:35] LABS: Glucose Point of Care 272 mg/dl (65-105)
[2024-02-19] MEDS: ATORVASTATIN 40 MG TABLET PO (16:51)
[2024-02-19] MEDS: AZITHROMYCIN 500 MG/NS 250 ML 500 MG/250 ML BAG 125 MG IVPB (18:00)
[2024-02-19] MEDS: CHOLECALCIFEROL 1,000 UNITS TABLET 2000 UNITS PO (20:08)
[2024-02-19] MEDS: lisinopriL 5 MG TABLET PO (20:08)
[2024-02-19 21:06] LABS: Glucose Point of Care 300 mg/dl (65-105)
[2024-02-20] VITALS (20 sets, daily range): BP systolic 111–135; BP diastolic 50–68; PULSE 88–102; RESP 16–20; TEMP 36.4–36.7; O2SAT 94–100; BMI 22.5
--- NOTE | 2024-02-20 | ECHO_ITS ---
Patient Info Name: Silvano Duval Age: 79 years : 1945 Gender: Male Ht: 66 in Wt: 128 lbs BSA: 1.64 m2 HR: 97 bpm BP: 122 / 70 mmHg Technical Quality: Fair Exam Date: 02/20/2024 12:40 PM Exam Location: Echo Lab Patient Status: Inpatient Admit Date: 02/20/2024 Staff Ordering Physician: Valeri Swan APRN Social Science Research Assistant: Sheila Jones RDCS Attending Provider: Mary Ann Hunt Referring Physician: Beny HARRELL; Exam Type: CA echo doppler color flow Study Info Indications R06.02 - Shortness of breath - Elevated BNP Complete two-dimensional, color flow and Doppler transthoracic echocardiogram is performed. Summary 1. Complete two-dimensional, color flow and Doppler transthoracic echocardiogram is performed. 2. Left ventricular chamber dimension is normal. 3. Left ventricular systolic function is moderately reduced, estimated at 40-45%. 4. There is mild concentric increased left ventricular wall thickness. 5. The left ventricular diastolic function is grade III diastolic dysfunction. 6. E/e' 38 is significantly elevated. 7. Left atrial chamber dimension is moderately enlarged. 8. There is moderate aortic valve sclerosis. 9. There is mild to moderate aortic valve stenosis with a peak velocity of 145 cm/s, mean gradient of 5 mmHg, and aortic valve area of 1.1 cm2. 10. The mitral valve has mildly calcified annulus. 11. There is mild mitral valve regurgitation. 12. There is mild tricuspid valve regurgitation. 13. Mild pulmonary hypertension, estimated pulmonary arterial systolic pressure is 43 mmHg. 14. There is trivial pericardial effusion. Left Ventricle E/e' 38 is significantly elevated. Left ventricular chamber dimension is normal. Left ventricular systolic function is moderately reduced, estimated at 40-45%. There is mild concentric increased left ventricular wall thickness. The left ventricular diastolic function is grade III diastolic dysfunction. Right Ventricle Right ventricular chamber dimension is normal. Right ventricular systolic function is normal. Left Atria Left atrial chamber dimension is moderately enlarged. Right Atria Right atrial chamber dimension is normal. Aortic Valve The aortic valve is trileaflet. There is moderate aortic valve sclerosis. There is mild to moderate aortic valve stenosis with a peak velocity of 145 cm/s, mean gradient of 5 mmHg, and aortic valve area of 1.1 cm2. There is no aortic valve regurgitation. Pulmonic Valve There is no pulmonic regurgitation. Mitral Valve The mitral valve has mildly calcified annulus. There is no mitral valve stenosis. There is mild mitral valve regurgitation. Tricuspid Valve There is mild tricuspid valve regurgitation. Mild pulmonary hypertension, estimated pulmonary arterial systolic pressure is 43 mmHg. Pericardium/Pleural There is trivial pericardial effusion. Inferior Vena Cava Normal inferior vena cava with >50% collapse upon inspiration consistent with normal right atrial pressure, 5 mmHg. Aorta The aortic root size at the sinus of Valsalva is normal. Left Ventricular Outflow Tract Name Value Normal LVOT 2D LVOT Diameter 2.0 cm LVOT Doppler LVOT Peak Gradient 2 mmHg
[2024-02-20] MEDS: IPRATROPIUM 0.5 MG/ALBUTEROL SULFATE 2.5 MG AMPUL.NEB 3 ML INHALATION ×4 (02:49→20:54)
[2024-02-20 06:29] LABS: Basophils Percent Auto 0.2 % (0.2-1.2); Eosinophils Percent Auto 0.1 % (0-4.4); Hematocrit 33.3 % (42.0-52.0); Hemoglobin 10.8 g/dL (14.0-18.0); Immature Granulocyte Absolute 0.11 K/mm3 (0.00-0.031); Immature Granulocyte Percent A 0.8 % (0-0.5); Lymphocytes Absolute Auto 0.75 K/mm3 (0.9-3.2); Lymphocytes Percent Auto 5.7 % (18.3-44.2); Mean Corpuscular HGB Conc 32.4 g/dl (32-36); Mean Corpuscular Hemoglobin 30.2 pg (26-34); Mean Platelet Volume 10.5 fl (7.4-10.4); Monocytes Absolute Auto 0.8 K/mm3 (0.1-0.6); Monocytes Percent Auto 6.3 % (2.6-8.5); Neutrophils Absolute Auto 11.4 K/mm3 (1.3-6.7); Neutrophils Percent Auto 86.9 % (45.5-73.1); Platelet Count Result 213 k/mm3 (150-375); Red Blood Count 3.58 M/mm3 (4.6-6.20); Red Cell Distribution Width 14.8 % (11.5-14.5); White Blood Count 13.1 K/mm3 (4.5-10.0)
[2024-02-20 06:43] LABS: Alanine Aminotransferase 14 U/L (6-50); Albumin Level 3.7 g/dL (3.5-5.1); Alkaline Phosphatase 58 U/L (38-126); Anion Gap 14 mmol/L (4-12); Aspartate Amino Transferase 27 U/L (17-59); Bilirubin,Total 0.4 mg/dL (0.2-1.3); Blood Urea Nitrogen 44 mg/dL (9-20); Calcium 8.2 mg/dL (8.4-10.2); Carbon Dioxide 23 mmol/L (22-30); Chloride 100 mmol/L (98-107); Estimated CRCL calculation 17 ml/min; Estimated Glomerular Filt Rate 21; Glucose 202 mg/dL (65-110); Potassium 3.6 mmol/L (3.4-5.0); Sodium 137 mmol/L (137-145)
[2024-02-20 07:42] LABS: Glucose Point of Care 195 mg/dl (65-105)
--- NOTE | 2024-02-20 07:51 | PM.PNCARD ---
Progress Note: A&P Assessment and Plan (1) Elevated troponin: Code(s): R79.89 - Other specified abnormal findings of blood chemistry Status: Acute Assessment and Plan: Doubt ACS as no chest pain and hypoxemia. Probably related to type II infarct in setting of pneumonia, hypoxia, CKD. Trend troponin to peak. Check EKG. Obtain echo. (2) Acute dyspnea: Code(s): R06.00 - Dyspnea, unspecified Status: Acute Assessment and Plan: Probably due to pneumonia or COPD. On antibiotics and had neb treatment as per hospitalist. (3) CAD (coronary artery disease): Qualifiers: Coronary Disease-Associated Artery/Lesion type: [place] artery [place] vs. transplanted heart: [place] heart Associated angina: with other forms of angina Qualified Code(s): I25.118 - Atherosclerotic heart disease of [place] coronary artery with other forms of angina pectoris Code(s): I25.10 - Atherosclerotic heart disease of [place] coronary artery without angina pectoris Status: Acute Assessment and Plan: Stable. On dual antiplatelets for stents. (4) Systolic dysfunction: Code(s): I51.9 - Heart disease, unspecified Status: Acute Assessment and Plan: Stable. Chronic. 05/09/23 Echo: EF 40-45%, grade I diastolic dysfunction, mod LVH, mild LAE. On Lasix 40 m PO daily at home to maintain euvolemia. (5) Dyslipidemia: Code(s): E78.5 - Hyperlipidemia, unspecified Status: Acute Assessment and Plan: On Atorvastatin. Subjective Date/time seen: 02/20/24 07:51 Interval history: Has mild sob. No chest pains. Exam Const: General: cooperative, healthy appearing and comfortable Orientation/consciousness: oriented to person, oriented to place and oriented to time Resp: Auscultation: clear to auscultation bilaterally, no crackles, no rales, no rhonchi and no wheezes Other: Coarse breath sounds Cardio: Rate: regular rate Rhythm: regular rhythm Heart sounds: no murmurs Peripheral pulses: dorsalis pedis present Neuro: General: oriented to person, oriented to place and oriented to time Extrem: Right lower extremity: no edema Left lower extremity: no edema Objective Data Vital Signs Vital Signs: Vital Signs - 24 hr 02/19/24 08:46 02/19/24 08:49 02/19/24 08:00 Temperature Pulse Rate 115 H 113 H Respiratory Rate Blood Pressure 136/100 H Pulse Oximetry Oxygen Delivery Room Air 02/19/24 12:00 02/19/24 13:39 02/19/24 13:40 Temperature Pulse Rate 84 82 Respiratory Rate 20 Blood Pressure Pulse Oximetry 95 Oxygen Delivery Room Air 02/19/24 14:00 02/19/24 16:00 02/19/24 21:15 Temperature 97.7 F 97.9 F Pulse Rate 97 104 H 101 H Respiratory Rate 20 20 Blood Pressure 127/47 L 121/49 L Pulse Oximetry 95 93 Oxygen Delivery 02/19/24 20:00 02/19/24 19:53 02/19/24 19:53 Temperature Pulse Rate 101 H Respiratory Rate 20 Blood Pressure Pulse Oximetry 94 Oxygen Delivery Room Air Room Air 02/19/24 20:02 02/20/24 02:49 02/20/24 03:00 Temperature Pulse Rate 100 95 97 Respiratory Rate 20 20 18 Blood Pressure Pulse Oximetry Oxygen Delivery 02/20/24 05:40 02/19/24 20:00 02/20/24 00:00 Temperature 97.6 F Pulse Rate 97 97 98 Respiratory Rate 20 Blood Pressure 122/50 L Pulse Oximetry 96 Oxygen Delivery 02/20/24 04:00 Temperature Pulse Rate 98 Respiratory Rate Blood Pressure Pulse Oximetry Oxygen Delivery Intake/Output Intake/Output: Intake & Output 02/17/24 02/18/24 02/19/24 02/20/24 23:59 23:59 23:59 23:59 Intake Total 540 1078 350 Balance 540 1078 350 Meds/Results Medications: Active Medications Generic Name Dose Route Start Last Admin Trade Name Darenq PRN Reason Stop Dose Admin Acetaminophen 650 mg 02/18/24 14:38 Acetaminophen 325 Mg Tablet PO Q4H PRN Mild Pain (1-3) or Fever Hydrocodone Bitart/Acetaminophe
--- NOTE | 2024-02-20 07:53 | ECG_ITS ---
Test Date: 2024-02-20 08:10:38 Measurements Intervals [place] Rate: 89 P: 67 CA: 136 QRS: 9 QRSD: 107 T: 147 QT: 395 QTc: 482 Interpretive Statements SINUS RHYTHM POSSIBLE LEFT ATRIAL ENLARGEMENT ST-T WAVE ABNORMALITY IN ANTEROLAT/HIGH LAT LEADS- CONSIDER ISCHEMIA BASELINE ARTIFACT- I, II, AVR ABNORMAL ECG Compared to ECG 02/19/2024 06:35:38 NO SIGNIFICANT CHANGE Electronically Signed On 02-20-2024 09:37:07 CDT by Kevin Armijo D.O.
[2024-02-20] MEDS: OMEGA 3 POLYUNSAT FATTY ACIDS 1 GM CAP PO (08:37)
[2024-02-20] MEDS: PANTOPRAZOLE 40 MG TABLET PO (08:37)
[2024-02-20] MEDS: TICAGRELOR 90 MG TABLET PO ×2 (08:37→20:40)
[2024-02-20] MEDS: METOPROLOL SUCCINATE EXT REL 50 MG TABCR PO (08:38)
[2024-02-20] MEDS: ASPIRIN 81 MG ENTERIC TABLET PO (08:38)
[2024-02-20] MEDS: TAMSULOSIN HCL 0.4 MG CAPSULE PO (08:38)
[2024-02-20] MEDS: FUROSEMIDE 40 MG TABLET PO (08:38)
[2024-02-20] MEDS: ISOSORBIDE MONONITRATE 20 MG TABLET PO ×2 (08:38→16:55)
[2024-02-20] MEDS: predniSONE 20 MG TABLET 40 MG PO (08:38)
[2024-02-20] MEDS: EMPAGLIFLOZIN 25 MG TABLET PO (08:38)
--- NOTE | 2024-02-20 11:24 | PM.IMPN ---
Progress Note: A&P Assessment and Plan (1) Acute respiratory distress: Code(s): R06.03 - Acute respiratory distress Status: Acute Assessment and Plan: - CXR: 1. Opacities in the dependent lower lungs which could represent mild pulmonary edema, pneumonia or atelectasis. 2. Small bilateral pleural effusions. 3. Borderline heart size. - given sputum production and cough, suspect COPD exacerbation/pneumonia vs CHF exacerbation. continue steroids and -continue ABX. Suspect ALLEN superimposed on CKD related to dehydration versus volume overload. Will hold Lasix and administer slow fusion of IV fluids. - viral PCR negative - -continue to monitor CBC 02/20/24: Do acute distress identified. Continue slow IV fluids continue antibiotics continue nebulizer treatments continue steroids (2) COPD (chronic obstructive pulmonary disease): Qualifiers: COPD type: unspecified COPD Qualified Code(s): J44.9 - Chronic obstructive pulmonary disease, unspecified Code(s): J44.9 - Chronic obstructive pulmonary disease, unspecified Status: Acute Assessment and Plan: - patient denied previous history of COPD, however pulmonology note on 10/03/2023 reported COPD - suspect exacerbation given increased sputum production and wheezing prior to arrival - starting scheduled nebs, ceftriaxone/azithromycin, and p.o. steroids - no supplemental O2 requirement at this time 02/20/24: see plan for 1. Patient remains stable with respiratory status. He is not requiring any supplemental oxygenation. (3) Congestive heart failure: Qualifiers: Heart failure type: systolic Heart failure chronicity: chronic Qualified Code(s): I50.22 - Chronic systolic (congestive) heart failure Code(s): I50.9 - Heart failure, unspecified Status: Chronic Assessment and Plan: - BNP 14,800, previously 27,600 on 06/11/2023 - most recent echo (06/12/2023): EF estimated at 45% with mild global left ventricular systolic dysfunction. See report for details. - update echo - s/p: 40 IVP of Lasix in the ED. - daily weights and monitor I&Os - continue trend renal function 02/20/24: Cardiology following. Echo ordered. Continue daily Lasix. (4) CKD (chronic kidney disease): Qualifiers: Chronic kidney disease stage: stage 3 (moderate) Chronic kidney disease stage 3 subtype: stage 3b (GFR 30-44) Qualified Code(s): N18.32 - Chronic kidney disease, stage 3b Code(s): N18.9 - Chronic kidney disease, unspecified Status: Chronic Assessment and Plan: - ALLEN superimposed on CKD - creatinine 2.9 and GFR 21, previously 2.6 and GFR 24 on 02/07/2024 - may be secondary to dehydration, does not appear volume overloaded on exam. continue IV fluids at 100 mL/hour x1 L. - trend renal function - trend electrolytes, correct as needed -may consider nephrology in the a.m. 02/20/24: Acute on chronic. Creatinine today 2.9. Continue to trend and monitor renal function. Electrolytes without acute abnormality otherwise. Consider Nephrology consult. (5) Diabetes mellitus: Qualifiers: Diabetes mellitus type: type 2 Diabetes mellitus salvage determiner insulin use: without long-term use Diabetes mellitus complication status: with other specified complication Qualified Code(s): E11.69 - Type 2 diabetes mellitus with other specified complication Code(s): E11.9 - Type 2 diabetes mellitus without complications Status: Chronic Assessment and Plan: - hypoglycemia protocol - POC blood glucose ACHS - home medication: Jardiance, glipizide *hold glipizide - correct regimen ordered - high dose TIDWM, steroids initiated. - A1C 8.2% on 10/11/2023, update 02/20/24: Continue hypoglycemic protocol continue glucose a.c. and HS and p.r.n.. Continue sliding scale insulin. A1c is 7.3. (6) Hypertension: Qualif
[2024-02-20 11:55] LABS: Glucose Point of Care 239 mg/dl (65-105)
[2024-02-20] MEDS: INSULIN ASPART (*BKC) 100 UNITS/ML SUB-Q ×2 (12:00→17:07)
[2024-02-20] MEDS: LORazepam (*CRX) 0.5 MG TABLET PO (15:27)
[2024-02-20 16:56] LABS: Glucose Point of Care 356 mg/dl (65-105)
[2024-02-20] MEDS: ATORVASTATIN 40 MG TABLET PO (16:59)
[2024-02-20] MEDS: BENZONATATE 100 MG CAPSULE PO (17:17)
[2024-02-20] MEDS: AZITHROMYCIN 500 MG/NS 250 ML 500 MG/250 ML BAG 250 MG IVPB (18:12)
[2024-02-20 19:56] LABS: Glucose Point of Care 298 mg/dl (65-105)
[2024-02-20] MEDS: CHOLECALCIFEROL 1,000 UNITS TABLET 2000 UNITS PO (20:40)
[2024-02-20] MEDS: lisinopriL 5 MG TABLET PO (20:40)
[2024-02-21] VITALS (16 sets, daily range): BP systolic 129–142; BP diastolic 60–75; PULSE 87–113; RESP 18–20; TEMP 36.3–36.6; O2SAT 93–100
[2024-02-21] MEDS: IPRATROPIUM 0.5 MG/ALBUTEROL SULFATE 2.5 MG AMPUL.NEB 3 ML INHALATION ×3 (03:02→13:17)
[2024-02-21 06:24] LABS: Basophils Percent Auto 0.3 % (0.2-1.2); Eosinophils Percent Auto 0.3 % (0-4.4); Hematocrit 33.2 % (42.0-52.0); Hemoglobin 10.7 g/dL (14.0-18.0); Immature Granulocyte Absolute 0.12 K/mm3 (0.00-0.031); Lymphocytes Percent Auto 7.5 % (18.3-44.2); Mean Corpuscular HGB Conc 32.2 g/dl (32-36); Mean Corpuscular Hemoglobin 30.2 pg (26-34); Mean Corpuscular Volume 93.8 fl (80-100); Mean Platelet Volume 10.7 fl (7.4-10.4); Monocytes Absolute Auto 0.8 K/mm3 (0.1-0.6); Monocytes Percent Auto 6.7 % (2.6-8.5); Neutrophils Absolute Auto 10.1 K/mm3 (1.3-6.7); Neutrophils Percent Auto 84.2 % (45.5-73.1); Platelet Count Result 192 k/mm3 (150-375); Red Blood Count 3.54 M/mm3 (4.6-6.20); Red Cell Distribution Width 14.9 % (11.5-14.5); White Blood Count 11.9 K/mm3 (4.5-10.0)
[2024-02-21 06:49] LABS: Alanine Aminotransferase 15 U/L (6-50); Albumin Level 3.8 g/dL (3.5-5.1); Alkaline Phosphatase 55 U/L (38-126); Anion Gap 13 mmol/L (4-12); Aspartate Amino Transferase 24 U/L (17-59); Bilirubin,Total 0.5 mg/dL (0.2-1.3); Blood Urea Nitrogen 47 mg/dL (9-20); Calcium 8.1 mg/dL (8.4-10.2); Carbon Dioxide 24 mmol/L (22-30); Chloride 99 mmol/L (98-107); Estimated CRCL calculation 17 ml/min; Estimated Glomerular Filt Rate 21; Glucose 218 mg/dL (65-110); Potassium 3.8 mmol/L (3.4-5.0); Sodium 136 mmol/L (137-145)
[2024-02-21 07:50] LABS: Glucose Point of Care 206 mg/dl (65-105)
--- NOTE | 2024-02-21 08:02 | PM.PNCARD ---
Progress Note: A&P Assessment and Plan (1) Elevated troponin: Code(s): R79.89 - Other specified abnormal findings of blood chemistry Status: Acute Assessment and Plan: Doubt ACS as no chest pain and hypoxemia. Probably related to type II infarct in setting of pneumonia, hypoxia, CKD. Peaked at 2.7. Echo is similar to a year ago with EF 40-45%. No further cardiac workup. (2) Acute dyspnea: Code(s): R06.00 - Dyspnea, unspecified Status: Acute Assessment and Plan: Probably due to pneumonia or COPD. On antibiotics and had neb treatment as per hospitalist. (3) CAD (coronary artery disease): Qualifiers: Coronary Disease-Associated Artery/Lesion type: [place] artery [place] vs. transplanted heart: [place] heart Associated angina: with other forms of angina Qualified Code(s): I25.118 - Atherosclerotic heart disease of [place] coronary artery with other forms of angina pectoris Code(s): I25.10 - Atherosclerotic heart disease of [place] coronary artery without angina pectoris Status: Acute Assessment and Plan: Stable. On dual antiplatelets for stents. (4) Systolic dysfunction: Code(s): I51.9 - Heart disease, unspecified Status: Acute Assessment and Plan: Stable. Chronic. 05/09/23 Echo: EF 40-45%, grade I diastolic dysfunction, mod LVH, mild LAE. On Lasix 40 m PO daily at home to maintain euvolemia. (5) Dyslipidemia: Code(s): E78.5 - Hyperlipidemia, unspecified Status: Acute Assessment and Plan: On Atorvastatin. Subjective Date/time seen: 02/21/24 08:02 Interval history: Has mild sob. No chest pains. Exam Const: General: cooperative, healthy appearing and comfortable Orientation/consciousness: oriented to person, oriented to place and oriented to time Resp: Auscultation: clear to auscultation bilaterally, no crackles, no rales, no rhonchi and no wheezes Other: Coarse breath sounds Cardio: Rate: regular rate and tachycardic Rhythm: regular rhythm Heart sounds: no murmurs Peripheral pulses: dorsalis pedis present Neuro: General: oriented to person, oriented to place and oriented to time Extrem: Right lower extremity: no edema Left lower extremity: no edema Objective Data Vital Signs Vital Signs: Vital Signs - 24 hr 02/20/24 08:38 02/20/24 08:46 02/20/24 08:55 Temperature Pulse Rate 92 92 88 Respiratory Rate 16 20 Blood Pressure 121/60 Pulse Oximetry 100 Oxygen Delivery Oxygen Flow Rate 02/20/24 09:34 02/20/24 09:10 02/20/24 08:45 Temperature Pulse Rate 92 Respiratory Rate 18 Blood Pressure Pulse Oximetry 94 Oxygen Delivery Room Air Room Air Oxygen Flow Rate 02/20/24 12:00 02/20/24 13:53 02/20/24 14:00 Temperature Pulse Rate 98 90 91 Respiratory Rate 20 18 Blood Pressure Pulse Oximetry Oxygen Delivery Oxygen Flow Rate 02/20/24 14:00 02/20/24 16:00 02/20/24 20:00 Temperature 98.1 F Pulse Rate 102 H 102 H Respiratory Rate 18 Blood Pressure 135/60 Pulse Oximetry 98 Oxygen Delivery Room Air Oxygen Flow Rate 02/20/24 20:56 02/20/24 21:03 02/20/24 21:24 Temperature 98.0 F Pulse Rate 90 91 96 Respiratory Rate 18 18 20 Blood Pressure 111/68 Pulse Oximetry 99 Oxygen Delivery Oxygen Flow Rate 02/21/24 03:02 02/20/24 21:00 02/21/24 03:21 Temperature Pulse Rate 113 H 98 Respiratory Rate 18 18 Blood Pressure Pulse Oximetry 95 Oxygen Delivery Nasal Cannula Oxygen Flow Rate 2 02/20/24 20:00 02/21/24 00:00 02/21/24 04:00 Temperature Pulse Rate 95 89 87 Respiratory Rate Blood Pressure Pulse Oximetry Oxygen Delivery Oxygen Flow Rate 02/21/24 05:37 02/21/24 07:15 02/21/24 07:15 Temperature 97.4 F L Pulse Rate 105 H 95 95 Respiratory Rate 20 18 18 Blood Pressure 142/75 H Pulse Oximetry 97 93 Oxygen Delivery Room Air Oxygen Flow Rate 0
[2024-02-21] MEDS: OMEGA 3 POLYUNSAT FATTY ACIDS 1 GM CAP PO (08:28)
[2024-02-21] MEDS: PANTOPRAZOLE 40 MG TABLET PO (08:28)
[2024-02-21] MEDS: EMPAGLIFLOZIN 25 MG TABLET PO (08:28)
[2024-02-21] MEDS: FUROSEMIDE 40 MG TABLET PO (08:28)
[2024-02-21] MEDS: METOPROLOL SUCCINATE EXT REL 50 MG TABCR PO (08:28)
[2024-02-21] MEDS: ASPIRIN 81 MG ENTERIC TABLET PO (08:28)
[2024-02-21] MEDS: predniSONE 20 MG TABLET 40 MG PO (08:28)
[2024-02-21] MEDS: TAMSULOSIN HCL 0.4 MG CAPSULE PO (08:29)
[2024-02-21] MEDS: ISOSORBIDE MONONITRATE 20 MG TABLET PO ×2 (08:29→17:08)
[2024-02-21] MEDS: TICAGRELOR 90 MG TABLET PO ×2 (08:29→20:49)
[2024-02-21] MEDS: INSULIN ASPART (*BKC) 100 UNITS/ML SUB-Q ×3 (08:29→17:05)
--- NOTE | 2024-02-21 11:15 | P.CONNP_ITS ---
Assessment and Plan Assessment and plan (1) ALLEN (acute kidney injury): Code(s): N17.9 - Acute kidney failure, unspecified Status: Acute Assessment and Plan: * as noted by labs on admission * creatinine 3.0mg/d on admission * down to 2.9mg/dl for the last few days * suspect due to several issues: * mild CHF * IV diuretics (only one dose received though) * COPD exacerbation * pneumonia * recent initiation on DIMPLE-I (lisinopril) therapy ~ a week ago * trial of holding DIMPLE-I * remains on oral diuretic therapy * follow repeat labs and UOP (2) Chronic kidney disease, stage 4 (severe): Code(s): N18.4 - Chronic kidney disease, stage 4 (severe) Status: Chronic Assessment and Plan: * baseline creatinine runs ~ 2.0 - 2.6mg/dl in the last year or so * due to hypertension, diabetes, vascular disease (CAD + CHF/cardiomyopathy, hyperlipidemia, PAD, and possible KAYCEE) as well as age * follows with Dr. Mathias for CKD management (3) Congestive heart failure: Qualifiers: Heart failure chronicity: chronic Heart failure type: systolic Qualified Code(s): I50.22 - Chronic systolic (congestive) heart failure Code(s): I50.9 - Heart failure, unspecified Status: Chronic Assessment and Plan: * repeat Echo noted * clinically better at this time * on oral diuretic therapy * Cardiology recommendations noted (4) COPD (chronic obstructive pulmonary disease): Qualifiers: COPD type: unspecified COPD Qualified Code(s): J44.9 - Chronic obstructive pulmonary disease, unspecified Code(s): J44.9 - Chronic obstructive pulmonary disease, unspecified Status: Acute Assessment and Plan: * clinical findings highly suggestive * doing better with nebulizer treatments, steroids, and antibiotics * no evidence of hypoxia * follow respiratory status (5) Hypertension: Qualifiers: Hypertension type: secondary to other renal disorders Qualified Code(s): I15.1 - Hypertension secondary to other renal disorders Code(s): I10 - Essential (primary) hypertension Status: Chronic Assessment and Plan: * reasonable control at this time * follow trend of hemodynamics (6) Type 2 diabetes mellitus: Qualifiers: Chronic kidney disease stage: stage 4 (severe) Diabetes mellitus complication detail: with chronic kidney disease Diabetes mellitus complication status: with kidney complications Diabetes mellitus usp insulin use: without terminal operations supervisor use Qualified Code(s): E11.22 - Type 2 diabetes mellitus with diabetic chronic kidney disease; N18.4 - Chronic kidney disease, stage 4 (severe) Code(s): E11.9 - Type 2 diabetes mellitus without complications Status: Chronic Assessment and Plan: * follow accu-cheks * glycemic control per hospitalists I will continue to follow the patient with you while he remains hospitalized and make further recommendations as deemed necessary. Thank you for allowing me to participate in the care of this patient. History of Present Illness Reason for Consult Consult date: 02/21/24 Reason for consult: acute renal failure (on chronic kidney disease) Chief Complaint Chief complaint: Heart failure exacerbation History of Present Illness Narrative: The patient is a 79-year-old male with a past medical history as outlined below who presented to [facility] Emergency room with complaints of shortness of breath and cough. According to the patient, he said the shortness of
--- NOTE | 2024-02-21 11:15 | PM.CNNEP ---
Assessment and Plan Assessment and plan (1) ALLEN (acute kidney injury): Code(s): N17.9 - Acute kidney failure, unspecified Status: Acute Assessment and Plan: as noted by labs on admission creatinine 3.0mg/d on admission down to 2.9mg/dl for the last few days suspect due to several issues: mild CHF IV diuretics (only one dose received though) COPD exacerbation pneumonia recent initiation on DIMPLE-I (lisinopril) therapy ~ a week ago trial of holding DIMPLE-I remains on oral diuretic therapy follow repeat labs and UOP (2) Chronic kidney disease, stage 4 (severe): Code(s): N18.4 - Chronic kidney disease, stage 4 (severe) Status: Chronic Assessment and Plan: baseline creatinine runs ~ 2.0 - 2.6mg/dl in the last year or so due to hypertension, diabetes, vascular disease (CAD + CHF/cardiomyopathy, hyperlipidemia, PAD, and possible KAYCEE) as well as age follows with Dr. Mathias for CKD management (3) Congestive heart failure: Qualifiers: Heart failure chronicity: chronic Heart failure type: systolic Qualified Code(s): I50.22 - Chronic systolic (congestive) heart failure Code(s): I50.9 - Heart failure, unspecified Status: Chronic Assessment and Plan: repeat Echo noted clinically better at this time on oral diuretic therapy Cardiology recommendations noted (4) COPD (chronic obstructive pulmonary disease): Qualifiers: COPD type: unspecified COPD Qualified Code(s): J44.9 - Chronic obstructive pulmonary disease, unspecified Code(s): J44.9 - Chronic obstructive pulmonary disease, unspecified Status: Acute Assessment and Plan: clinical findings highly suggestive doing better with nebulizer treatments, steroids, and antibiotics no evidence of hypoxia follow respiratory status (5) Hypertension: Qualifiers: Hypertension type: secondary to other renal disorders Qualified Code(s): I15.1 - Hypertension secondary to other renal disorders Code(s): I10 - Essential (primary) hypertension Status: Chronic Assessment and Plan: reasonable control at this time follow trend of hemodynamics (6) Type 2 diabetes mellitus: Qualifiers: Chronic kidney disease stage: stage 4 (severe) Diabetes mellitus complication detail: with chronic kidney disease Diabetes mellitus complication status: with kidney complications Diabetes mellitus correction insulin use: without correction use Qualified Code(s): E11.22 - Type 2 diabetes mellitus with diabetic chronic kidney disease; N18.4 - Chronic kidney disease, stage 4 (severe) Code(s): E11.9 - Type 2 diabetes mellitus without complications Status: Chronic Assessment and Plan: follow accu-cheks glycemic control per hospitalists I will continue to follow the patient with you while he remains hospitalized and make further recommendations as deemed necessary. Thank you for allowing me to participate in the care of this patient. History of Present Illness Reason for Consult Consult date: 02/21/24 Reason for consult: acute renal failure (on chronic kidney disease) Chief Complaint Chief complaint: Heart failure exacerbation History of Present Illness Narrative: The patient is a 79-year-old male with a past medical history as outlined below who presented to [facility] Emergency room with complaints of shortness of breath and cough. According to the patient, he said the shortness of breath has been progressively getting worse over last 2-3 days if not longer. The cough apparently started about three or four days ago and has been productive of light yellow sputum. The patient's son apparently checked his pulse oximetry at home and noted the reading of 80% on room air. prior to coming to the emergency room, he received a home nebulizer treatment which seemed to help with some of his symptoms. He denied any
[2024-02-21 11:35] LABS: Glucose Point of Care 282 mg/dl (65-105)
--- NOTE | 2024-02-21 11:37 | PM.IMPN ---
Progress Note: A&P Assessment and Plan (1) Acute respiratory distress: Code(s): R06.03 - Acute respiratory distress Status: Acute Assessment and Plan: - CXR: 1. Opacities in the dependent lower lungs which could represent mild pulmonary edema, pneumonia or atelectasis. 2. Small bilateral pleural effusions. 3. Borderline heart size. - given sputum production and cough, suspect COPD exacerbation/pneumonia vs CHF exacerbation. continue steroids and -continue ABX. Suspect ALLEN superimposed on CKD related to dehydration versus volume overload. Will hold Lasix and administer slow fusion of IV fluids. - viral PCR negative - -continue to monitor CBC 02/20/24: No acute distress identified. Continue slow IV fluids continue antibiotics continue nebulizer treatments continue steroids 02/21/24: D/C IVF Continue Rocephin and Azithromycin No acute respiratory distress. Blood cultures negative Will be able to discharge home on oral Abx. Likely tomorrow. (2) COPD (chronic obstructive pulmonary disease): Qualifiers: COPD type: unspecified COPD Qualified Code(s): J44.9 - Chronic obstructive pulmonary disease, unspecified Code(s): J44.9 - Chronic obstructive pulmonary disease, unspecified Status: Acute Assessment and Plan: - patient denied previous history of COPD, however pulmonology note on 10/03/2023 reported COPD - suspect exacerbation given increased sputum production and wheezing prior to arrival - starting scheduled nebs, ceftriaxone/azithromycin, and p.o. steroids - no supplemental O2 requirement at this time 02/20/24: see plan for 1. Patient remains stable with respiratory status. He is not requiring any supplemental oxygenation. 02/21/24: See Plan above. (3) Congestive heart failure: Qualifiers: Heart failure type: systolic Heart failure chronicity: chronic Qualified Code(s): I50.22 - Chronic systolic (congestive) heart failure Code(s): I50.9 - Heart failure, unspecified Status: Chronic Assessment and Plan: - BNP 14,800, previously 27,600 on 06/11/2023 - most recent echo (06/12/2023): EF estimated at 45% with mild global left ventricular systolic dysfunction. See report for details. - update echo - s/p: 40 IVP of Lasix in the ED. - daily weights and monitor I&Os - continue trend renal function 02/20/24: Cardiology following. Echo ordered. Continue daily Lasix. 02/21/24: ECHO showed moderately reduced EF of 40-45% with grade 2 diastolic dysfunction. No further workup per Cards. Continue current plan. (4) CKD (chronic kidney disease): Qualifiers: Chronic kidney disease stage: stage 3 (moderate) Chronic kidney disease stage 3 subtype: stage 3b (GFR 30-44) Qualified Code(s): N18.32 - Chronic kidney disease, stage 3b Code(s): N18.9 - Chronic kidney disease, unspecified Status: Chronic Assessment and Plan: - ALLEN superimposed on CKD - creatinine 2.9 and GFR 21, previously 2.6 and GFR 24 on 02/07/2024 - may be secondary to dehydration, does not appear volume overloaded on exam. continue IV fluids at 100 mL/hour x1 L. - trend renal function - trend electrolytes, correct as needed -may consider nephrology in the a.m. 02/20/24: Acute on chronic. Creatinine today 2.9. Continue to trend and monitor renal function. Electrolytes without acute abnormality otherwise. Consider Nephrology consult. 02/21/24: Pt's creatinine remains 2.9 with GFR of 21. Pt has had a steady decline in renal function over the course of the past couple of years. Due to this, will consult Nephrology for their input prior to discharge. (5) Diabetes mellitus: Qualifiers: Diabetes mellitus type: type 2 Diabetes mellitus exterminator termite insulin use: without exterminator termite use Diabetes mellitus complication status: with other specified complication Qualified Code(s): E11.69
[2024-02-21] MEDS: LORazepam (*CRX) 0.5 MG TABLET PO (11:38)
[2024-02-21 17:02] LABS: Glucose Point of Care 336 mg/dl (65-105)
[2024-02-21] MEDS: ATORVASTATIN 40 MG TABLET PO (17:08)
[2024-02-21] MEDS: AZITHROMYCIN 250 MG TABLET 500 MG PO (17:08)
[2024-02-21] MEDS: AMOXICILLIN/CLAVULANATE K 500-125 MG TAB 1 TABLET PO (17:09)
[2024-02-21 20:43] LABS: Glucose Point of Care 268 mg/dl (65-105)
[2024-02-21] MEDS: CHOLECALCIFEROL 1,000 UNITS TABLET 2000 UNITS PO (20:48)
[2024-02-21] MEDS: traZODone HCL 25 MG TABLET PO (20:49)
[2024-02-21] MEDS: MELATONIN 5 MG TABLET PO (20:49)
--- NOTE | 2024-02-21 22:36 | PCRCNOTE ---
Neb TX not given due to Therapist not available.
[2024-02-22] VITALS (9 sets, daily range): BP systolic 126; BP diastolic 60; PULSE 82–100; RESP 18–20; TEMP 36.4; O2SAT 95–100
[2024-02-22] MEDS: IPRATROPIUM 0.5 MG/ALBUTEROL SULFATE 2.5 MG AMPUL.NEB 3 ML INHALATION ×2 (03:13→07:45)
--- NOTE | 2024-02-22 07:17 | P.DS_ITS ---
DS: Admitting Diagnosis Discharge Date 02/22/24 Admitting Diagnosis Acute respiratory distress COPD Congestive Heart Failure CKD DM HTN DS: Discharge Diagnosis Discharge Diagnosis (1) Acute respiratory distress: Code(s): R06.03 - Acute respiratory distress Status: Resolved Assessment and Plan: - CXR: 1. Opacities in the dependent lower lungs which could represent mild pulmonary edema, pneumonia or atelectasis. 2. Small bilateral pleural effusions. 3. Borderline heart size. - given sputum production and cough, suspect COPD exacerbation/pneumonia vs CHF exacerbation. continue steroids and -continue ABX. Suspect ALLEN superimposed on CKD related to dehydration versus volume overload. Will hold Lasix and administer slow fusion of IV fluids. - viral PCR negative - -continue to monitor CBC 02/20/24: * No acute distress identified. * Continue slow IV fluids * continue antibiotics * continue nebulizer treatments * continue steroids 02/21/24: * D/C IVF * Continue Rocephin and Azithromycin * No acute respiratory distress. * Blood cultures negative * Will be able to discharge home on oral Abx. Likely tomorrow. 02/22/24: * Resolved (2) COPD (chronic obstructive pulmonary disease): Qualifiers: COPD type: unspecified COPD Qualified Code(s): J44.9 - Chronic obstructive pulmonary disease, unspecified Code(s): J44.9 - Chronic obstructive pulmonary disease, unspecified Status: Acute Assessment and Plan: - patient denied previous history of COPD, however pulmonology note on 10/03/2023 reported COPD - suspect exacerbation given increased sputum production and wheezing prior to arrival - starting scheduled nebs, ceftriaxone/azithromycin, and p.o. steroids - no supplemental O2 requirement at this time 02/20/24: * see plan for 1. * Patient remains stable with respiratory status. He is not requiring any sup plemental oxygenation. 02/21/24: * See Plan above. 02/22/24: * Pt's COPD is well controlled without any further complications. * Taper prednisone dose on discharge today * Continue PRN albuterol at home * Continue daily Duoneb/Combivent * Follow up with Pulmonology. (3) Congestive heart failure: Qualifiers: Heart failure chronicity: chronic Heart failure type: systolic Qualified Code(s): I50.22 - Chronic systolic (congestive) heart failure Code(s): I50.9 - Heart failure, unspecified Status: Chronic Assessment and Plan: - BNP 14,800, previously 27,600 on 06/11/2023 - most recent echo (06/12/2023): EF estimated at 45% with mild global left ventricular systolic dysfunction. See report for details. - update echo - s/p: 40 IVP of Lasix in the ED. - daily weights and monitor I&Os - continue trend renal function 02/20/24: * Cardiology following. * Echo ordered. * Continue daily Lasix. 02/21/24: * ECHO showed moderately reduced EF of 40-45% with grade 2 diastolic dysfunction. * No further workup per Cards. * Continue current plan. 02/22/24: * Cardiology has signed off, and intends on continuing the current treatments. * Pt appears euvolemic today at discharge. (4) CKD (chronic kidney disease): Qualifiers: Chronic kidney disease stage: stage 3 (moderate) Chronic kidney disease stage 3 subtype: stage 3b (GFR 30-44) Qualified Code(s): N18.32 - Chronic kidney disease, stage 3b Code(s): N18.9 - Chronic kidney disease, unspecified Stat
--- NOTE | 2024-02-22 07:17 | PM.DS ---
DS: Admitting Diagnosis Discharge Date 02/22/24 Admitting Diagnosis Acute respiratory distress COPD Congestive Heart Failure CKD DM HTN DS: Discharge Diagnosis Discharge Diagnosis (1) Acute respiratory distress: Code(s): R06.03 - Acute respiratory distress Status: Resolved Assessment and Plan: - CXR: 1. Opacities in the dependent lower lungs which could represent mild pulmonary edema, pneumonia or atelectasis. 2. Small bilateral pleural effusions. 3. Borderline heart size. - given sputum production and cough, suspect COPD exacerbation/pneumonia vs CHF exacerbation. continue steroids and -continue ABX. Suspect ALLEN superimposed on CKD related to dehydration versus volume overload. Will hold Lasix and administer slow fusion of IV fluids. - viral PCR negative - -continue to monitor CBC 02/20/24: No acute distress identified. Continue slow IV fluids continue antibiotics continue nebulizer treatments continue steroids 02/21/24: D/C IVF Continue Rocephin and Azithromycin No acute respiratory distress. Blood cultures negative Will be able to discharge home on oral Abx. Likely tomorrow. 02/22/24: Resolved (2) COPD (chronic obstructive pulmonary disease): Qualifiers: COPD type: unspecified COPD Qualified Code(s): J44.9 - Chronic obstructive pulmonary disease, unspecified Code(s): J44.9 - Chronic obstructive pulmonary disease, unspecified Status: Acute Assessment and Plan: - patient denied previous history of COPD, however pulmonology note on 10/03/2023 reported COPD - suspect exacerbation given increased sputum production and wheezing prior to arrival - starting scheduled nebs, ceftriaxone/azithromycin, and p.o. steroids - no supplemental O2 requirement at this time 02/20/24: see plan for 1. Patient remains stable with respiratory status. He is not requiring any supplemental oxygenation. 02/21/24: See Plan above. 02/22/24: Pt's COPD is well controlled without any further complications. Taper prednisone dose on discharge today Continue PRN albuterol at home Continue daily Duoneb/Combivent Follow up with Pulmonology. (3) Congestive heart failure: Qualifiers: Heart failure chronicity: chronic Heart failure type: systolic Qualified Code(s): I50.22 - Chronic systolic (congestive) heart failure Code(s): I50.9 - Heart failure, unspecified Status: Chronic Assessment and Plan: - BNP 14,800, previously 27,600 on 06/11/2023 - most recent echo (06/12/2023): EF estimated at 45% with mild global left ventricular systolic dysfunction. See report for details. - update echo - s/p: 40 IVP of Lasix in the ED. - daily weights and monitor I&Os - continue trend renal function 02/20/24: Cardiology following. Echo ordered. Continue daily Lasix. 02/21/24: ECHO showed moderately reduced EF of 40-45% with grade 2 diastolic dysfunction. No further workup per Cards. Continue current plan. 02/22/24: Cardiology has signed off, and intends on continuing the current treatments. Pt appears euvolemic today at discharge. (4) CKD (chronic kidney disease): Qualifiers: Chronic kidney disease stage: stage 3 (moderate) Chronic kidney disease stage 3 subtype: stage 3b (GFR 30-44) Qualified Code(s): N18.32 - Chronic kidney disease, stage 3b Code(s): N18.9 - Chronic kidney disease, unspecified Status: Chronic Assessment and Plan: - ALLEN superimposed on CKD - creatinine 2.9 and GFR 21, previously 2.6 and GFR 24 on 02/07/2024 - may be secondary to dehydration, does not appear volume overloaded on exam. continue IV fluids at 100 mL/hour x1 L. - trend renal function - trend electrolytes, correct as needed -may consider nephrology in the a.m. 02/20/24: Acute on chronic. Creatinine today 2.9. Continue to trend and monitor renal function. Electrolytes without acute abn
[2024-02-22 08:02] LABS: Glucose Point of Care 225 mg/dl (65-105)
[2024-02-22 08:26] LABS: Basophils Percent Auto 0.2 % (0.2-1.2); Eosinophils Percent Auto 0.3 % (0-4.4); Hematocrit 34.9 % (42.0-52.0); Hemoglobin 11.2 g/dL (14.0-18.0); Immature Granulocyte Percent A 1.7 % (0-0.5); Lymphocytes Absolute Auto 0.86 K/mm3 (0.9-3.2); Lymphocytes Percent Auto 7.1 % (18.3-44.2); Mean Corpuscular HGB Conc 32.1 g/dl (32-36); Mean Corpuscular Hemoglobin 30.4 pg (26-34); Mean Corpuscular Volume 94.6 fl (80-100); Mean Platelet Volume 10.9 fl (7.4-10.4); Monocytes Absolute Auto 0.9 K/mm3 (0.1-0.6); Monocytes Percent Auto 7.1 % (2.6-8.5); Neutrophils Absolute Auto 10.1 K/mm3 (1.3-6.7); Neutrophils Percent Auto 83.6 % (45.5-73.1); Platelet Count Result 196 k/mm3 (150-375); Red Blood Count 3.69 M/mm3 (4.6-6.20); Red Cell Distribution Width 14.9 % (11.5-14.5); White Blood Count 12.1 K/mm3 (4.5-10.0)
[2024-02-22 08:35] LABS: Alanine Aminotransferase 19 U/L (6-50); Albumin Level 3.9 g/dL (3.5-5.1); Alkaline Phosphatase 66 U/L (38-126); Anion Gap 14 mmol/L (4-12); Aspartate Amino Transferase 21 U/L (17-59); Bilirubin,Total 0.4 mg/dL (0.2-1.3); Blood Urea Nitrogen 52 mg/dL (9-20); Calcium 8.3 mg/dL (8.4-10.2); Carbon Dioxide 24 mmol/L (22-30); Chloride 99 mmol/L (98-107); Estimated CRCL calculation 16 ml/min; Estimated Glomerular Filt Rate 20; Glucose 211 mg/dL (65-110); Potassium 4.4 mmol/L (3.4-5.0); Sodium 137 mmol/L (137-145)
[2024-02-22] MEDS: ISOSORBIDE MONONITRATE 20 MG TABLET PO (09:03)
[2024-02-22] MEDS: EMPAGLIFLOZIN 25 MG TABLET PO (09:03)
[2024-02-22] MEDS: FUROSEMIDE 40 MG TABLET PO (09:03)
[2024-02-22] MEDS: TICAGRELOR 90 MG TABLET PO (09:04)
[2024-02-22] MEDS: INSULIN ASPART (*BKC) 100 UNITS/ML SUB-Q ×2 (09:04→12:08)
[2024-02-22] MEDS: AMOXICILLIN/CLAVULANATE K 500-125 MG TAB 1 TABLET PO (09:04)
[2024-02-22] MEDS: predniSONE 20 MG TABLET 40 MG PO (09:04)
[2024-02-22] MEDS: ASPIRIN 81 MG ENTERIC TABLET PO (09:04)
[2024-02-22] MEDS: TAMSULOSIN HCL 0.4 MG CAPSULE PO (09:04)
[2024-02-22] MEDS: OMEGA 3 POLYUNSAT FATTY ACIDS 1 GM CAP PO (09:04)
[2024-02-22] MEDS: METOPROLOL SUCCINATE EXT REL 50 MG TABCR PO (09:04)
[2024-02-22] MEDS: PANTOPRAZOLE 40 MG TABLET PO (09:04)
[2024-02-22 12:00] LABS: Glucose Point of Care 287 mg/dl (65-105)
== END 2024-02-22 12:25 | disposition home or self-care (01) | DRG 190 ==
LOC: ANHED 10:56 → ANH3MEDSUR 15:34
PROVIDERS: General Practice; Nurse Practitioner; Student in an Organized Health Care Education/Training Program; Admitting Provider General Practice; Emergency Provider Emergency Medicine; PCP Internal Medicine; Visit Provider Nurse Practitioner Adult Health
DX: J44.1 Chronic obstructive pulmonary disease with (acute) exacerbation (principal); I21.A1 Myocardial infarction type 2; I50.23 Acute on chronic systolic (congestive) heart failure; J18.9 Pneumonia, unspecified organism; I13.0 Hypertensive heart and chronic kidney disease with heart failure and stage 1 through stage 4 chronic kidney disease, or unspecified chronic kidney disease; N17.9 Acute kidney failure, unspecified; J44.0 Chronic obstructive pulmonary disease with (acute) lower respiratory infection; N18.32 Chronic kidney disease, stage 3b; I25.10 Atherosclerotic heart disease of native coronary artery without angina pectoris; I65.23 Occlusion and stenosis of bilateral carotid arteries; I70.1 Atherosclerosis of renal artery; E11.22 Type 2 diabetes mellitus with diabetic chronic kidney disease; E11.51 Type 2 diabetes mellitus with diabetic peripheral angiopathy without gangrene; E78.5 Hyperlipidemia, unspecified; R79.89 Other specified abnormal findings of blood chemistry; F32.A Depression, unspecified; F41.9 Anxiety disorder, unspecified; Z20.822 Contact with and (suspected) exposure to COVID-19; I25.2 Old myocardial infarction; Z86.718 Personal history of other venous thrombosis and embolism; Z79.82 Long term (current) use of aspirin; Z95.5 Presence of coronary angioplasty implant and graft; Z86.73 Personal history of transient ischemic attack (TIA), and cerebral infarction without residual deficits; Z87.891 Personal history of nicotine dependence
CPT/HCPCS: 36415; 71046; 80053; 82550; 82948; 83036; 83880; 84484; 85025; 87637; 93005; 93306; 94640; 96365; 96366; 96374; 99285; A9270; G0378; J0456; J0696; J1815; J1940; J7030; J7512

== ENCOUNTER 2024-02-24 14:53 | Outpatient (CLI) | payer OTHER, SELFPAY ==
[2024-02-24 18:19] LABS: Hematocrit 43.3 % (42.0-52.0); Hemoglobin 13.6 g/dL (14.0-18.0); Mean Corpuscular HGB Conc 31.4 g/dl (32-36); Mean Corpuscular Hemoglobin 29.9 pg (26-34); Mean Corpuscular Volume 95.2 fl (80-100); Mean Platelet Volume 11.5 fl (7.4-10.4); Platelet Count Result 283 k/mm3 (150-375); Red Blood Count 4.55 M/mm3 (4.6-6.20); Red Cell Distribution Width 15.3 % (11.5-14.5); White Blood Count 21.6 K/mm3 (4.5-10.0)
[2024-02-24 18:50] LABS: Alanine Aminotransferase 97 U/L (6-50); Albumin Level 4.5 g/dL (3.5-5.1); Alkaline Phosphatase 75 U/L (38-126); Anion Gap 18 mmol/L (4-12); Aspartate Amino Transferase 46 U/L (17-59); Bilirubin,Total 1.4 mg/dL (0.2-1.3); Blood Urea Nitrogen 68 mg/dL (9-20); Calcium 8.7 mg/dL (8.4-10.2); Carbon Dioxide 24 mmol/L (22-30); Chloride 96 mmol/L (98-107); Estimated Glomerular Filt Rate 18; Glucose 177 mg/dL (65-110); Potassium 4.6 mmol/L (3.4-5.0); Sodium 138 mmol/L (137-145)
[2024-02-24 19:09] LABS: Band Neutrophils Percent 1 % (0-6); Eosinophils Absolute Manual 0.43 K/mm3 (0.02-0.50); Eosinophils Percent Manual 2 % (0-4); Lymphocytes Absolute Manual 0.86 K/mm3 (1.1-4.5); Monocytes Absolute Manual 1.51 K/mm3 (0.1-0.90); Monocytes Percent Manual 7 % (3-9); Neutrophils Absolute Manual 18.79 K/mm3 (1.3-6.7); Neutrophils Percent Manual 86 % (46-73); Platelet Estimate Adequate (Adequate); Schistocytes None Seen; Total Cells Counted 100
[2024-02-24 19:10] LABS: Anisocytosis 2+; Hypochromasia 1+
== END 2024-02-24 14:54 | disposition home or self-care (01) ==
LOC: ANHGOSHLAB 14:55
PROVIDERS: Nurse Practitioner Adult Health; PCP Internal Medicine; Visit Provider Internal Medicine Nephrology
DX: N18.32 Chronic kidney disease, stage 3b (principal); E21.1 Secondary hyperparathyroidism, not elsewhere classified
CPT/HCPCS: 36415; 80053; 85025

== ENCOUNTER 2024-02-28 11:50 | Outpatient (CLI) | payer OTHER, SELFPAY ==
[2024-02-28 13:33] LABS: Alanine Aminotransferase 41 U/L (6-50); Albumin Level 4.6 g/dL (3.5-5.1); Alkaline Phosphatase 75 U/L (38-126); Anion Gap 10 mmol/L (4-12); Aspartate Amino Transferase 56 U/L (17-59); Bilirubin,Total 1.4 mg/dL (0.2-1.3); Blood Urea Nitrogen 56 mg/dL (9-20); Calcium 8.6 mg/dL (8.4-10.2); Carbon Dioxide 30 mmol/L (22-30); Chloride 88 mmol/L (98-107); Estimated Glomerular Filt Rate 20; Glucose 113 mg/dL (65-110); Potassium 3.9 mmol/L (3.4-5.0); Sodium 128 mmol/L (137-145)
[2024-02-28 13:34] LABS: Basophils Absolute Auto 0.1 K/mm3 (0.0-0.1); Basophils Percent Auto 0.7 % (0.2-1.2); Eosinophils Absolute Auto 0.4 K/mm3 (0-0.3); Eosinophils Percent Auto 2.9 % (0-4.4); Hematocrit 43.1 % (42.0-52.0); Immature Granulocyte Absolute 0.27 K/mm3 (0.00-0.031); Immature Granulocyte Percent A 2.1 % (0-0.5); Lymphocytes Absolute Auto 1.35 K/mm3 (0.9-3.2); Lymphocytes Percent Auto 10.4 % (18.3-44.2); Mean Corpuscular HGB Conc 32.5 g/dl (32-36); Mean Corpuscular Hemoglobin 29.9 pg (26-34); Mean Corpuscular Volume 92.1 fl (80-100); Mean Platelet Volume 10.9 fl (7.4-10.4); Monocytes Absolute Auto 1.2 K/mm3 (0.1-0.6); Neutrophils Absolute Auto 9.7 K/mm3 (1.3-6.7); Neutrophils Percent Auto 74.9 % (45.5-73.1); Platelet Count Result 280 k/mm3 (150-375); Red Blood Count 4.68 M/mm3 (4.6-6.20); Red Cell Distribution Width 14.6 % (11.5-14.5)
[2024-02-28 13:39] LABS: NT Pro B Type Natriuretic Pept > 30000 pg/mL (19.9-100)
== END 2024-02-28 11:51 | disposition home or self-care (01) ==
PROVIDERS: PCP Internal Medicine; Visit Provider Internal Medicine
DX: E11.22 Type 2 diabetes mellitus with diabetic chronic kidney disease (principal); N18.9 Chronic kidney disease, unspecified; I50.9 Heart failure, unspecified; N17.9 Acute kidney failure, unspecified
CPT/HCPCS: 36415; 80053; 83880; 85025

== ENCOUNTER 2024-03-07 11:47 | Outpatient (CLI) | payer OTHER, SELFPAY ==
--- NOTE | ~2024-03-07 | XR_ITS ---
Clinical Indication: Chronic kidney disease PA and lateral views of the chest: Comparison: 02/18/2024 Findings: Small right pleural effusion present. Possible minimal bibasilar pulmonary edema. Cardiome diastinal silhouette is within normal limits. Bones and soft tissues are unremarkable. Impression: Small right pleural effusion and possible minimal bibasilar pulmonary edema. Possible underlying COPD. Reviewed, dictated and finalized at location . Impression: Small right pleural effusion and possible minimal bibasilar pulmonary edema. Possible underlying COPD.
[2024-03-07 12:19] LABS: Anion Gap 13 mmol/L (4-12); Blood Urea Nitrogen 55 mg/dL (9-20); Calcium 8.9 mg/dL (8.4-10.2); Carbon Dioxide 28 mmol/L (22-30); Chloride 98 mmol/L (98-107); Estimated Glomerular Filt Rate 22; Glucose 195 mg/dL (65-110); Potassium 4.4 mmol/L (3.4-5.0); Sodium 139 mmol/L (137-145)
== END 2024-03-07 11:48 | disposition home or self-care (01) ==
LOC: ANHLAB 11:54
PROVIDERS: PCP Internal Medicine; Visit Provider Internal Medicine Nephrology
DX: R06.02 Shortness of breath (principal); N18.32 Chronic kidney disease, stage 3b; J90 Pleural effusion, not elsewhere classified
CPT/HCPCS: 36415; 71046; 80048

== ENCOUNTER 2024-06-19 10:39 | Inpatient (IN) | payer MEDICARE, SELFPAY ==
[2024-06-19] VITALS (18 sets, daily range): BP systolic 120–165; BP diastolic 70–95; PULSE 96–123; RESP 20–35; TEMP 36.6–36.9; O2SAT 93–98; BMI 18.9
--- NOTE | ~2024-06-19 | XR_ITS ---
EXAMINATION: XR chest 2V DATE: 06/22/2024 09:18 INDICATION: Pneumonia and pleural effusion. TECHNIQUE: frontal and lateral views of the chest were obtained. COMPARISON: Chest radiograph and CT dated 06/19/2024 FINDINGS: Diffuse increased interstitial pattern most prominent in the right upper and bilateral lower lung zon es consistent. Small bilateral pleural effusions with associated basilar atelectasis or pneumonia. No pneumothorax. Cardiomegaly. IMPRESSION: 1. Likely congestive heart failure with cardiomegaly and mild pulmonary edema. 2. Small bilateral pleural effusions with associated basilar atelectasis versus pneumonia. Reviewed, dictated and finalized at location B. TROTYPE FINISHER
--- NOTE | ~2024-06-19 | CT_ITS ---
CTA chest PE protocol Ordering provider: Jaylon Coyle MD History: 79 years Male with . HYPOXIA . Comparison: None. Technique: CT angiogram chest was performed following timed intravenous injection of contrast. Thin s lice axial images and reformatted coronal images were obtained. Three dimensional reformatted images of the chest were also obtained using a [employer] workstation. . Automated exposure control and iterati ve reconstruction technique were employed. The dose-length product was 177.99 mGy-cm. 100 mL Omnipaqu e 350 was given IV. Findings: PULMONARY ARTERIES: No pulmonary embolus. VISUALIZED THORACIC INLET: Normal. MEDIASTINUM: Aorta/coronary arteries: Mild atheromatous disease. Heart/other: The heart is is slightly enlarged. Trace of pericardial effusion. Lymph nodes: No mediastinal or hilar adenopathy. Prevascular lymph nodes are seen with the largest measures 1.6 cm. Paratracheal lymph nodes are seen with the largest measures 2.2 cm. LUNGS: Bilateral large pleural effusion with adjacent atelectasis versus pneumonia. No pulmonary nodules or masses. No pneumothorax. Bilateral interstitial changes which may indicate pulmonary edema versus pne umonitis. VISUALIZED UPPER ABDOMEN: Otherwise, the visualized upper abdomen is normal. MUSCULOSKELETAL: Soft tissues: The superficial soft tissues are normal. Bones: Age appropriate degenerative changes of the spine. IMPRESSION: 1. No pulmonary embolism. 2. Bilateral basilar atelectasis versus pneumonia with bilateral large pleural effusion. 3. Trace of pericardial effusion with cardiomegaly. 4. Bilateral interstitial thickening which may indicate edema versus pneumonitis. Reviewed, dictated and finalized at location A. ISTHENICS INSTRUCTOR IMPRESSION: 1. No pulmonary embolism. 2. Bilateral basilar atelectasis versus pneumonia with bilateral large pleural effusion. 3. Trace of pericardial effusion with cardiomegaly. 4. Bilateral interstitial thickening which may indicate edema versus pneumonit is.
--- NOTE | ~2024-06-19 | XR_ITS ---
XR chest 1V portable Ordering provider: Jaylon Coyle MD History: 79 years Male with . shortness of breath . Comparison: March 07, 2024 FINDINGS: MEDIASTINUM: The cardiac silhouette is slightly enlarged. Congestive barrie. LUNGS: No pneumothorax. Basilar opacification suggestive of atelectasis versus pneumonia with bilater al pleural effusion. Bilateral interstitial changes suggestive of pulmonary edema versus pneumonitis. OTHER: No free air under the diaphragm. Degenerative changes of the spine. IMPRESSION: Cardiomegaly with cardiac decompensation and pulmonary edema. Bilateral basal atelectasis versus pneumonia with pleural effusion. Bilateral pneumonitis is also hig hly suggestive. Reviewed, dictated and finalized at location A. NOGRAPHER GEOLOGICAL IMPRESSION: Cardiomegaly with cardiac decompensation and pulmonary edema. Bilateral basal atelectasis versus pneumonia with pleural effusion. Bilateral p neumonitis is also highly suggestive.
[2024-06-19 11:05] LABS: Basophils Absolute Auto 0.1 K/mm3 (0.0-0.1); Basophils Percent Auto 0.7 % (0.2-1.2); Eosinophils Absolute Auto 0.1 K/mm3 (0-0.3); Eosinophils Percent Auto 0.8 % (0-4.4); Hematocrit 44.2 % (42.0-52.0); Hemoglobin 14.1 g/dL (14.0-18.0); Immature Granulocyte Percent A 0.8 % (0-0.5); Lymphocytes Absolute Auto 0.77 K/mm3 (0.9-3.2); Lymphocytes Percent Auto 6.3 % (18.3-44.2); Mean Corpuscular HGB Conc 31.9 g/dl (32-36); Mean Corpuscular Volume 90.8 fl (80-100); Mean Platelet Volume 10.6 fl (7.4-10.4); Monocytes Percent Auto 8.3 % (2.6-8.5); Neutrophils Absolute Auto 10.2 K/mm3 (1.3-6.7); Neutrophils Percent Auto 83.1 % (45.5-73.1); Platelet Count Result 311 k/mm3 (150-375); Red Blood Count 4.87 M/mm3 (4.6-6.20); Red Cell Distribution Width 14.5 % (11.5-14.5); White Blood Count 12.2 K/mm3 (4.5-10.0)
--- NOTE | 2024-06-19 11:14 | ECG_ITS ---
Test Date: 2024-06-19 10:47:27 Measurements Intervals Outlook Rate: 112 P: 56 WY: 119 QRS: 1 QRSD: 106 T: 143 QT: 344 QTc: 472 Interpretive Statements SINUS TACHYCARDIA WITH SHORT WY INTERVAL POSSIBLE LEFT ATRIAL ENLARGEMENT [-0.1mV P-WAVE IN V1/V2] LEFT VENTRICULAR HYPERTROPHY AND ST-T CHANGE [VOLTAGE CRITERIA PLUS ST/T ABNORMALITY] STTW ABNORMALITY IN LATERAL LEADS, CONSIDER ISCHEMIA VS LVH Compared to ECG 02/20/2024 08:10:38 SINUS TACHYCARDIA NOW PRESENT Electronically Signed On 06-19-2024 15:26:47 CANTEEN ATTENDANT by Tiffanie Ponce M.D.
[2024-06-19 11:16] LABS: Alanine Aminotransferase 18 U/L (6-50); Albumin Level 4.5 g/dL (3.5-5.1); Alkaline Phosphatase 83 U/L (38-126); Anion Gap 10 mmol/L (4-12); Aspartate Amino Transferase 20 U/L (17-59); Bilirubin,Total 1.4 mg/dL (0.2-1.3); Blood Urea Nitrogen 43 mg/dL (9-20); Carbon Dioxide 30 mmol/L (22-30); Chloride 97 mmol/L (98-107); Estimated CRCL calculation 22 ml/min; Estimated Glomerular Filt Rate 33; Glucose 171 mg/dL (65-110); Magnesium 1.9 mg/dL (1.6-2.3); Potassium 4.3 mmol/L (3.4-5.0); Sodium 137 mmol/L (137-145)
[2024-06-19 11:20] LABS: INR 1.1; Prothrombin Time 14.3 Seconds (11.1-14.7)
[2024-06-19 11:22] LABS: Partial Thromboplastin Time 26.9 Seconds (22.3-36.8)
[2024-06-19 11:30] LABS: NT Pro B Type Natriuretic Pept > 30000 pg/mL (19.9-100); Troponin I 0.235 ng/mL (0.000-0.034)
--- NOTE | 2024-06-19 11:36 | ED.SOB ---
HPI - SOB/Dyspnea General Chief Complaint: Shortness of Breath/Dyspnea Stated Complaint: SOB Time Seen by Provider: 06/19/24 11:35 Source: patient and EMS Mode of arrival: EMS History of Present Illness HPI Narrative: 79 YEARS OLD WHITE MALE CAME TO THE ED FROM HOME BY AMBULANCE COMPLAINING OF SHORTNESS OF BREATH FOR THE LAST 2 WEEKS. PATIENT LIVES WITH HIS . PATIENT ON CHRONIC OXYGEN BY NASAL CANNULA AT 2 L. PATIENT REPORTS SHORTNESS OF BREATH GET WORSE LAYING DOWN FLAT OR DOING ANY MINOR PHYSICAL ACTIVITIES, HE DENIES ANY FEVER, CHILLS, NAUSEA, VOMITING, OR CHEST PAIN. PATIENT DID NOT TAKE HIS HOME MEDICATIONS THIS MORNING. PATIENT CURRENTLY ON ASPIRIN, AND BRILINTA. Related Data Home Medications ?Medication ?Instructions ?Recorded ?Confirmed ?Last Taken ?Type aspirin 81 mg tablet,delayed 81 mg PO DAILY 12/04/19 06/19/24 06/18/24 09:00 History release (Adult Low Dose Aspirin) 81 mg albuterol sulfate 90 mcg/actuation 2 puff inhalation TID PRN 05/08/23 06/19/24 06/19/24 07:30 History aerosol inhaler Shortness Of Breath Or Wheezing 2 puff cholecalciferol (vitamin D3) 50 50 mcg PO HS 02/14/24 06/19/24 06/18/24 09:00 History mcg (2,000 unit) capsule 50 mcg clonazepam 0.5 mg tablet 0.5 mg PO Q12H PRN anxiety 06/19/24 06/19/24 06/17/24 14:00 History 0.5 mg sennosides 8.6 mg-docusate sodium 2 tab-cap PO DAILY PRN constipation 06/19/24 06/19/24 04/16/24 05:19 History 50 mg tablet (Stimulant Laxative 2 tab-caps Plus) Allergies Allergy/AdvReac Type Severity Reaction Status Date / Time No Known Allergies Allergy Unknown Verified 06/19/24 17:59 Review of Systems Review of Systems: All systems reviewed & are unremarkable except as noted in HPI and below PMFSH Past Medical History Medical History Chronic kidney disease, stage 4 (severe) Aortic stenosis Chronic respiratory failure with hypoxia, on home oxygen therapy Gastroesophageal reflux disease 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 Hyperlipidemia Chronic obstructive pulmonary disease Deep venous thrombosis Coronary artery disease Carotid stenosis, bilateral Depression due to physical illness Tobacco dependence Non-ST elevation myocardial infarction (NSTEMI) 05/08/2023 and 06/11/2023 Type 2 diabetes mellitus Chronic kidney disease Emphysema lung Allergies Anxiety Peripheral artery disease Hypertension Renal artery stenosis Surgical History Surgical History History of cataract extraction History of coronary artery stent placement History of cardiac catheterization History of tonsillectomy Family History Family History Mother Family history of diabetes mellitus in first degree relative Cerebrovascular accident Father Family history of emphysema Sibling Family history of malignant neoplasm Social History Social History Social History: Surrogate medical decision maker: Cheryl Simin, spouse. Code status: Full code. Smoking packs per day: 0.5 Smoking cigarettes per day: 10.0 Years smoked: 60 Smoking pack-years: 30.00 Smoking status: Former smoker Tobacco type: cigarettes Alcohol intake: former Substance use: never Substance use type: does not use Do You Feel Safe in your Home?: Yes Lack of Transportation: No Lack of Food: Never True Current Housing: I Have Housing Concerned About Future Housing: No Difficulty Paying Gas/Electric Bills: No Difficulty Paying for Meds: No Currently Unemployed: No Education: High School Diploma/GED Difficulty w/ Childcare or Family Care: No Living arrangements: with family Occupation/Education: retired Spiritual care concerns: No Exam Narrative: GENERAL APPEARANCE: WELL-DEVELOPED, WELL-NOURISHED SKIN: NORMAL COLOR HEAD: NORMOCEPHALIC, NONTRAUMATIC EYES: CLEAR CONJUNCTIVA ENT: OROPHARYNX NORMAL, EARS NORMAL, NOSE NORMAL NECK: SUPPLE, NONTENDER CHEST AND RESPIRATORY: AIRWAY PATENT, LABORED BREATHING, NO ACCESSORY MUSCLE USE DIMINUTION OF AIR ENTRY BILATERALLY HEART: TACHYCARDIA ABDOMEN: SOFT, NONTENDER, NO ORGANOMEGALY, QUIET BOWEL SOUNDS VASCULAR: NORMAL PERIPHERAL PULSES, NORMAL CAPILLARY REFILL. MUSCULOSKELETAL: NORMAL RANGE OF MOTION, NONTENDER BACK NEUROLOGIC: ALERT AND ORIENTED ?3, HUMAN SERVICES INSTRUCTOR IS NORMAL TESTED, NO GROSS MOTOR DEFICIT Course Vital Signs Vital signs: Vital Signs Temperature 36.6 C 06/19/24 10:42 Pulse Rate 110 H 06/19/24 10:42 Respiratory Rate 30 H 06/19/24 10:42 Blood Pressure 165/77 H 06/19/24 10:42 Pulse Oximetry 94 06/19/24 10:42 Oxygen Delivery Nasal Cannula 06/19/24 10:42 Oxygen Flow Rate 4 06/19/24 10:42 Temperature 36.8 C 06/22/24 21:05 Pulse Rate 94 06/22/24 21:05 Respiratory Rate 18 06/22/24 21:05 Blood Pressure 162/66 H 06/22/24 21:05 Pulse Oximetry 93 06/22/24 21:05 Oxygen Delivery Room Air 06/22/24 20:50 Oxygen Flow Rate 2 06/22/24 09:23 MDM - SOB/Dyspnea MDM Narrative Medical decision making narrative: PATIENT CAME TO THE EMERGENCY ROOM BY AMBULANCE FROM HOME WITH SHORTNESS OF BREATH FOR 2 WEEKS VITAL SIGNS SHOWING BLOOD PRESSURE 165/77, HEART RATE 110, RESPIRATIONS 30 PER MINUTE PHYSICAL EXAMINATION: LABORED BREATHING, DIMINUTION OF AIR ENTRY BILATERALLY, NO LEG EDEMA, AND 4 L NASAL CANNULA, 97% SATURATION DIFFERENTIAL DIAGNOSIS INCLUDE PNEUMONIA, VIRAL INFECTION, CHF, PLEURAL EFFUSION, CORONARY ARTERY DISEASE BLOOD WORKUP TODAY INCLUDES CBC, CMP, TROPONIN, BNP, BLOOD CULTURE AND LACTIC ACID SHOWED WBC OF 12.2, BUN 43, CREATININE 1.9 CONSISTENT WITH PREVIOUS READING, GLUCOSE 171, TROPONIN 0.235, C-REACTIVE PROTEIN 3.1, BNP MORE THAN 30,000 URINALYSIS SHOWED NO EVIDENCE OF INFECTION PATIENT TESTED NEGATIVE FOR FLU, COVID AND RSV, A CHEST X-RAY SHOWED CARDIOMEGALY, PULMONARY EDEMA, ATELECTASIS VERSUS PNEUMONIA CTA PULMONARY TO RULE OUT PULMONARY EMBOLISM SHOWED NO PULMONARY EMBOLISM ATELECTASIS VERSUS PNEUMONIA WITH BILATERAL LARGE PLEURAL EFFUSIONS, TRACE PERICARDIAL EFFUSION WITH CARDIOMEGALY, PULMONARY EDEMA VERSUS PNEUMONITIS ADMIT TO IMU DISCUSSED WITH THE HOSPITALIST DIAGNOSIS PNEUMONIA, PNEUMONITIS, PULMONARY EDEMA, PLEURAL EFFUSION Differential Diagnosis Differential diagnosis: Likely other ( ABOVE) Medical Records Attestation: I reviewed the patient's medical records. Lab Data Attestation: I reviewed the patient's lab results. 06/22/24 04:52 06/22/24 04:52 Labs: Lab Results 06/19/24 06/19/24 06/19/24 Range/Units 10:54 10:54 10:55 WBC 12.2 H (4.5-10.0) K/mm3 RBC 4.87 (4.6-6.20) M/mm3 Hgb 14.1 (14.0-18.0) g/dL Hct 44.2 (42.0-52.0) % MCV 90.8 (80-100) fl MCH 29.0 (26-34) pg MCHC 31.9 L (32-36) g/dl RDW 14.5 (11.5-14.5) % Plt Count 311 (150-375) k/mm3 MPV 10.6 H (7.4-10.4) fl Immature Gran % (Auto) 0.8 H (0-0.5) % Neut % (Auto) 83.1 H (45.5-73.1) % Lymph % (Auto) 6.3 L (18.3-44.2) % [place] % (Auto) 8.3 (2.6-8.5) % Eos % (Auto) 0.8 (0-4.4) % Baso % (Auto) 0.7 (0.2-1.2) % Lymph # (Auto) 0.77 L (0.9-3.2) K/mm3 [place] # (Auto) 1.0 H (0.1-0.6) K/mm3 Eos # (Auto) 0.1 (0-0.3) K/mm3 Baso # (Auto) 0.1 (0.0-0.1) K/mm3 Abs Immat Gran (auto) 0.10 H (0.00-0.031) K/mm3 Absolute Neuts (auto) 10.2 H (1.3-6.7) K/mm3 Absolute Nucleated RBC 0.000 (0.0-0.012) K/mm3 Nucleated RBC % 0.0 (0.0-0.2) % PT 14.3 (11.1-14.7) Seconds INR 1.1 APTT 26.9 Cancelled (22.3-36.8) Seconds Sodium 137 (137-145) mmol/L Potassium 4.3 (3.4-5.0) mmol/L Chloride 97 L (98-107) mmol/L Carbon Dioxide 30 (22-30) mmol/L Anion Gap 10 (4-12) mmol/L BUN 43 H D (9-20) mg/dL Creatinine 1.95 H (0.7-1.3) mg/dL Estim Creat Clear Calc 22 ml/min Estimated GFR 33 L (59 - ) Glucose 171 H (65-110) mg/dL Lactic Acid (0.7-2.0) mmol/L Calcium 9.0 (8.4-10.2) mg/dL Magnesium 1.9 (1.6-2.3) mg/dL Total Bilirubin 1.4 H (0.2-1.3) mg/dL AST 20 (17-59) U/L ALT 18 (6-50) U/L Alkaline Phosphatase 83 (38-126) U/L Troponin I 0.235 H* (0.000-0.034) ng/mL C-Reactive Protein 3.1 H (<1.0) mg/dL NT-Pro-B Natriuret Pep (19.9-100) pg/mL Total Protein (6.3-8.2) g/dL Albumin (3.5-5.1) g/dL Urine Color (Yellow) Urine Appearance (Clear) Urine pH (5.0-9.0) Ur Specific [place] (1.001-1.035) Urine Protein (Negative) mg/dL Urine Glucose (UA) (Negative) mg/dL Urine Ketones (Negative) mg/dL Ur Blood (Man) (Negative) Urine Nitrate (Negative) Urine Bilirubin (Negative) Urine Urobilinogen (<2.0) mg/dL Leukocyte Esterase Rfl (Negative) RAYMON/UL Urine RBC (0-2) /hpf Urine WBC (0-3) /hpf Ur Squamous Epith Cells (Few) /hpf Urine Bacteria /hpf Urine Casts Influenza A (RT-PCR) (Negative) Influenza B (RT-PCR) (Negative) RSV (RT-PCR) (Negative) SARS-CoV-2 RNA (RT-PCR) (Negative) 06/19/24 06/19/24 06/19/24 Range/Units 10:55 11:58 12:00 WBC (4.5-10.0) K/mm3 RBC (4.6-6.20) M/mm3 Hgb (14.0-18.0) g/dL Hct (42.0-52.0) % MCV (80-100) fl MCH (26-34) pg MCHC (32-36) g/dl RDW (11.5-14.5) % Plt Count (150-375) k/mm3 MPV (7.4-10.4) fl Immature Gran % (Auto) (0-0.5) % Neut % (Auto) (45.5-73.1) % Lymph % (Auto) (18.3-44.2) % [place] % (Auto) (2.6-8.5) % Eos % (Auto) (0-4.4) % Baso % (Auto) (0.2-1.2) % Lymph # (Auto) (0.9-3.2) K/mm3 [place] # (Auto) (0.1-0.6) K/mm3 Eos # (Auto) (0-0.3) K/mm3 Baso # (Auto) (0.0-0.1) K/mm3 Abs Immat Gran (auto) (0.00-0.031) K/mm3 Absolute Neuts (auto) (1.3-6.7) K/mm3 Absolute Nucleated RBC (0.0-0.012) K/mm3 Nucleated RBC % (0.0-0.2) % PT (11.1-14.7) Seconds INR APTT (22.3-36.8) Seconds Sodium (137-145) mmol/L Potassium (3.4-5.0) mmol/L Chloride (98-107) mmol/L Carbon Dioxide (22-30) mmol/L Anion Gap (4-12) mmol/L BUN (9-20) mg/dL Creatinine (0.7-1.3) mg/dL Estim Creat Clear Calc ml/min Estimated GFR (59 - ) Glucose (65-110) mg/dL Lactic Acid 1.7 (0.7-2.0) mmol/L Calcium (8.4-10.2) mg/dL Magnesium (1.6-2.3) mg/dL Total Bilirubin (0.2-1.3) mg/dL AST (17-59) U/L ALT (6-50) U/L Alkaline Phosphatase (38-126) U/L Troponin I Cancelled (0.000-0.034) ng/mL C-Reactive Protein (<1.0) mg/dL NT-Pro-B Natriuret Pep > 24264 H (19.9-100) pg/mL Total Protein 8.0 (6.3-8.2) g/dL Albumin 4.5 (3.5-5.1) g/dL Urine Color Yellow (Yellow) Urine Appearance Clear (Clear) Urine pH 6.0 (5.0-9.0) Ur Specific [place] 1.028 (1.001-1.035) Urine Protein 3+ H (Negative) mg/dL Urine Glucose (UA) 3+ H (Negative) mg/dL Urine Ketones Trace H (Negative) mg/dL Ur Blood (Man) Negative (Negative) Urine Nitrate Negative (Negative) Urine Bilirubin Negative (Negative) Urine Urobilinogen 0.2 (<2.0) mg/dL Leukocyte Esterase Rfl Negative (Negative) RAYMON/UL Urine RBC 0-2 (0-2) /hpf Urine WBC 0-5 (0-3) /hpf Ur Squamous Epith Cells None seen (Few) /hpf Urine Bacteria None seen /hpf Urine Casts 0-2 Influenza A (RT-PCR) Negative (Negative) Influenza B (RT-PCR) Negative (Negative) RSV (RT-PCR) Negative (Negative) SARS-CoV-2 RNA (RT-PCR) Negative (Negative) ABG Data ABG results: 06/19/24 11:51 Puncture Site Left radial ABG pH 7.484 H ABG pCO2 36.1 ABG pO2 70.6 L ABG PO2/FiO2 Ratio 1.96 ABG HCO3 26.5 H ABG O2 Saturation 95.4 ABG O2 Content 19.0 ABG Base Excess 3.3 A-a Gradient 144.2 Oxyhemoglobin 93.8 Total Hemoglobin 14.4 O2 Delivery Device Nasal cannula O2 Liters/Min 4.0 FiO2 36 Imaging Data Radiologist's impression: Impressions Chest X-Ray 06/19/24 11:26 IMPRESSION: Cardiomegaly with cardiac decompensation and pulmonary edema. Bilateral basal atelectasis versus pneumonia with pleural effusion. Bilateral pneumonitis is also highly suggestive. Chest CTA 06/19/24 13:21 IMPRESSION: 1. No pulmonary embolism. 2. Bilateral basilar atelectasis versus pneumonia with bilateral large pleural effusion. 3. Trace of pericardial effusion with cardiomegaly. 4. Bilateral interstitial thickening which may indicate edema versus pneumonitis. ECG Data EKG #1: Attestation: I personally reviewed and interpreted this ECG as follows: ECG completion date: 06/19/24 Interpretation: SINUS TACHYCARDIA, LEFT ATRIAL ENLARGEMENT, LEFT VENTRICULAR HYPERTROPHY Critical Care Time Critical Care Time Critical Care Time: Yes Total Critical Care Time: 30 Discharge Plan Discharge Clinical Impression: Pneumonia, Pneumonitis, Pulmonary edema, Pleural effusion Patient Disposition: Still a Patient Condition: Stable
[2024-06-19 11:58] LABS: Alveolar/Arterial O2 Gradient 144.2 mmHg; Base Excess ABG 3.3 mEq/l (+/-2.0); Fractional Inspired Oxygen 36 %; HCO3 ABG 26.5 mEq/l (22.0-26.0); Oxygen Saturation ABG 95.4 % (95.0-100.0); Oxyhemoglobin 93.8 % THb (90.0-100.0); PCO2 ABG 36.1 mmHg (35.0-45.0); PO2 ABG 70.6 mmHg (80.0-100.0); PO2 FiO2 Ratio Arterial Blood 1.96 %; Total Hemoglobin 14.4 g/dL (12.0-18.0); pH ABG 7.484 (7.350-7.450)
[2024-06-19 11:59] LABS: Device NASAL CANNULA; Modified Allen's Test Pass; Site Drawn LEFT RADIAL
[2024-06-19 12:20] LABS: CRP 3.1 mg/dL (<1.0)
[2024-06-19 12:21] LABS: Add Urine Microscopic? YES; Appearance Urine Clear (Clear); Bacteria Urine None Seen /hpf; Bilirubin Urine Negative (Negative); Blood Urine Negative (Negative); Color Urine Yellow (Yellow); Glucose Urine UA 3+ mg/dL (Negative); Ketones Urine Trace mg/dL (Negative); Leukocyte Esterase Ur Negative LEU/UL (Negative); Nitrate Urine Negative (Negative); Non Pathogenic Casts 0-2; Protein Urine 3+ mg/dL (Negative); RBC Urine 0-2 /hpf (0-2); Specific Grav Ur 1.028 (1.001-1.035); Squamous Epithelial Cell Urine None Seen /hpf (Few); Urobilinogen Urine 0.2 mg/dL (<2.0); WBC Urine 0-5 /hpf (0-3)
[2024-06-19 12:23] LABS: Lactic Acid Reflex 1.7 mmol/L (0.7-2.0)
[2024-06-19 12:52] LABS: Influenza A QL RT-PCR Negative (Negative); Influenza B QL RT-PCR Negative (Negative); RSV RNA, RT-PCR Negative (Negative); SARS-CoV-2 RNA PCR Negative (Negative)
--- NOTE | 2024-06-19 14:10 | P.HP_ITS ---
H&P: HPI History of Present Illness Date/Time: 06/19/24 14:10 Chief Complaint: Shortness of breath. Narrative: This is a very pleasant 79-year-old male with severe multivessel coronary artery disease with history of stents (reportedly not a candidate for bypass due to high risk), heart failure with reduced ejection fraction and diastolic dysfunction, aortic valve stenosis, hypertension, dyslipidemia, peripheral arterial disease, renal artery stenosis, type 2 diabetes mellitus, chronic obstructive pulmonary disease, chronic respiratory failure with hypoxia on home oxygen, and benign prostatic hyperplasia who presented to the emergency department via EMS for evaluation of shortness of breath. The patient provides the following history. He gives a 2 week history of increasing dyspnea on lesser and lesser exertion as well as orthopnea. He also endorses a runny nose and nonproductive cough. Today he was feeling increasingly short of breath and tried an albuterol inhaler at home without benefit and he called 911. On EMS arrival his SpO2 was 88% on his usual 2 L. He denies sick contacts, fever, chills, sweats, sore throat, chest pain, pleuritic pain, palpitations, nausea, vomiting, diarrhea, dysphagia, and concerns for aspiration. No weight gain, in fact he has lost weight. In the ED: He was afebrile on arrival with an SpO2 in the mid 90s on 5 L. Heart rate has been in the low 100s to 120s an EKG shows a sinus tachycardia with ST T-wave abnormalities in the lateral leads. Labs were significant for a troponin of 0.235, proBNP greater than 30,000, BUN 43, creatinine 1.95, WBC count 12.2. He tested negative for influenza, COVID, and RSV. chest CTA was negative for pulmonary embolism but did show bibasilar atelectasis versus pneumonia, large bilateral pleural effusions, and trace pericardial effusion as well as bilateral interstitial thickening which may indicate edema versus pneumonitis. He was given azithromycin and ceftriaxone for possible pneumonia as well as a nebulizer treatment and furosemide 60 mg IV. He is being admitted in this setting for further treatment and evaluation. Review of Systems Review of Systems: 12 systems were reviewed and are negative except for as per HPI. FOR[facility]LY [facility] Past Medical History Medical History Chronic kidney disease, stage 4 (severe) Aortic stenosis Chronic respiratory failure with hypoxia, on home oxygen therapy Gastroesophageal reflux disease 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 Hyperlipidemia Chronic obstructive pulmonary disease Deep venous thrombosis Coronary artery disease Carotid stenosis, bilateral Depression due to physical illness Tobacco dependence Non-ST elevation myocardial infarction (NSTEMI) 05/08/2023 and 06/11/2023 Type 2 diabetes mellitus Chronic kidney disease Emphysema lung Allergies Anxiety Peripheral artery disease Hypertension Renal artery stenosis Surgical History Surgical History History of cataract extraction History of coronary artery stent placement History of cardiac catheterization History of tonsillectomy Family History Family History Mother Family history of diabetes mellitus in first degree relative Cerebrovascular accident Father Family history of emphysema Sibling Family history of malignant neoplasm Social History Social History Social History: Surrogate medical decision maker: Cheryl Duval, spouse. Code status: Full code. Smoking packs per day: 0.5 Smoking cigarettes per day: 10.0 Years smoked: 60 Smoking pack-years: 30.00 Smoking status: Former smoker Tobacco type: cigarettes Alcohol intake: former Substance use: never Substance use type: does not use Do You Feel Safe in your Home?: Yes Lack of Transportation: No Lack of Food: Never True Current Housing: I Have Housing Concerned About Future Housing: No Difficulty Paying Gas/Electric Bills: No Difficulty Paying for Meds: No Currently Unemployed: No Education: High School Diploma/GED Difficulty w/ Childcare or Family Care: No Living arrangements: with family Occupation/Education: retired Spiritual care concerns: No Meds Home Medications and Allergies Home Medications ?Medication ?Instructions ?Recorded ?Confirmed ?Type aspirin 81 mg tablet,delayed 81 mg PO DAILY 12/04/19 06/19/24 History release (Adult Low Dose Aspirin) blood sugar diagnostic (Accu-Chek #100 ea 09/22/20 06/19/24 Rx Flory Plus test strips) albuterol sulfate 90 mcg/actuation 2 puff inhalation TID PRN 05/08/23 06/19/24 History aerosol inhaler Shortness Of Breath Or Wheezing ticagrelor 90 mg tablet 90 mg PO Q12H #60 tabs 09/06/23 06/19/24 Rx empagliflozin 25 mg tablet 25 mg PO QAM #30 tabs 10/15/23 06/19/24 Rx (Jardiance) atorvastatin 40 mg tablet 40 mg PO QPM #90 tabs 01/13/24 06/19/24 Rx glipizide 5 mg tablet 5 mg PO DAILY #90 tabs 02/03/24 06/19/24 Rx cholecalciferol (vitamin D3) 50 50 mcg PO HS 02/14/24 06/19/24 History mcg (2,000 unit) capsule albuterol sulfate 1.25 mg/3 mL 1.25 mg (3 mL) inhalation Q4-6H 02/28/24 06/19/24 Rx solution for nebulization PRN shortness of breath or wheezing #90 mL furosemide 20 mg tablet 20 mg PO QAM #90 tabs 02/29/24 06/19/24 Rx tamsulosin 0.4 mg capsule 0.4 mg PO DAILY #90 caps 05/08/24 06/19/24 Rx pantoprazole 40 mg tablet,delayed 40 mg PO DAILY #90 tabs 05/14/24 06/19/24 Rx release metoprolol succinate 25 mg 25 mg PO Q12H #180 tabs 05/18/24 06/19/24 Rx tablet,extended release 24 hr (Toprol XL) isosorbide mononitrate 20 mg tablet See Rx Instructions .Route 06/13/24 06/19/24 Rx .COMPLEX #180 tabs clonazepam 0.5 mg tablet 0.5 mg PO Q12H PRN anxiety 06/19/24 06/19/24 History sennosides 8.6 mg-docusate sodium 2 tab-cap PO DAILY PRN constipation 06/19/24 06/19/24 History 50 mg tablet (Stimulant Laxative Plus) Allergies Allergy/AdvReac Type Severity Reaction Status Date / Time No Known Allergies Allergy Unknown Verified 06/19/24 17:59 Vital Signs Vital Signs - 24 hr 06/19/24 10:42 06/19/24 10:51 06/19/24 11:00 Temperature 97.9 F Pulse Rate 110 H 110 H Respiratory Rate 30 H Blood Pressure 165/77 H Pulse Oximetry 94 94 Oxygen Delivery Nasal Cannula High Flow Nasal Cannula Oxygen Flow Rate 4 4 06/19/24 11:31 06/19/24 12:02 06/19/24 12:25 Temperature 97.9 F Pulse Rate 104 H 111 H Respiratory Rate 22 H 35 H Blood Pressure 161/95 H 154/70 H Pulse Oximetry 93 94 Oxygen Delivery Nasal Cannula Oxygen Flow Rate 4 Exam Narrative: General: Chronically ill-appearing elderly gentleman sitting up in bed in no acute distress. He is in good spirits. Weight: 53.3 kg. BMI: 19.0. HEENT: Wearing corrective lenses. PERRL, EOMI. Sclera anicteric. Conjunctiva mildly injected. Oral mucosa moist. Neck: Supple. Mild jugular venous distention. Respiratory: Currently on 4 L nasal cannula. Mild conversational dyspnea though he appears in no respiratory distress and he is able to speak in mostly full sentences. Lung sounds are diminished bilaterally with scattered crackles. Cardiovascular: Tachycardic. Systolic murmur at the right upper sternal border. Gastrointestinal: Abdomen is soft, nontender, and nondistended with positive bowel sounds. Skin: Warm and dry. Extremities are warm and perfused. Extremities: No cyanosis, clubbing, or edema. Radial and pedal pulses intact. No palpable knots or cords. Neurological: Alert. Cranial nerves 2-12 are grossly intact. No gross focal deficits to casual conversation. Psychiatric: Pleasant and cooperative with normal mood and affect. Judgment and insight intact. H&P: Results Labs Labs: Short CBC 06/19/24 Range/Units 10:55 WBC 12.2 H (4.5-10.0) K/mm3 Hgb 14.1 (14.0-18.0) g/dL Hct 44.2 (42.0-52.0) % Plt Count 311 (150-375) k/mm3 [facility] 06/19/24 10:55 Sodium 137 Potassium 4.3 Chloride 97 L Carbon Dioxide 30 BUN 43 H D Creatinine 1.95 H Glucose 171 H Calcium 9.0 Cardiac Enzymes 06/19/24 06/19/24 Range/Units 10:55 10:55 Troponin I 0.235 H* Cancelled (0.000-0.034) ng/mL Liver Function 06/19/24 Range/Units 10:55 Total Bilirubin 1.4 H (0.2-1.3) mg/dL AST 20 (17-59) U/L ALT 18 (6-50) U/L Alkaline Phosphatase 83 (38-126) U/L Albumin 4.5 (3.5-5.1) g/dL Urine 06/19/24 Range/Units 12:00 Urine Color Yellow (Yellow) Urine Appearance Clear (Clear) Urine pH 6.0 (5.0-9.0) Ur Specific Shepherd 1.028 (1.001-1.035) Urine Protein 3+ H (Negative) mg/dL Urine Glucose (UA) 3+ H (Negative) mg/dL Impressions Chest X-Ray 06/19/24 11:26 IMPRESSION: 1. Cardiomegaly with cardiac decompensation and pulmonary edema. 2. Bilateral basal atelectasis versus pneumonia with pleural effusion. Bilateral pneumonitis is also highly suggestive. Chest CTA 06/19/24 13:21 IMPRESSION: 1. No pulmonary embolism. 2. Bilateral basilar atelectasis versus pneumonia with bilateral large pleural effusion. 3. Trace of pericardial effusion with cardiomegaly. 4. Bilateral interstitial thickening which may indicate edema versus pneumonitis. Assessment and Plan Assessment and plan (1) Acute on chronic combined systolic and diastolic heart failure: Code(s): I50.43 - Acute on chronic combined systolic (congestive) and diastolic (congestive) heart failure Status: Acute (2) Acute and chronic respiratory failure with hypoxia: Code(s): J96.21 - Acute and chronic respiratory failure with hypoxia Status: Acute (3) Elevated troponin: Code(s): R79.89 - Other specified abnormal findings of blood chemistry Status: Acute (4) Aortic stenosis: Code(s): I35.0 - Nonrheumatic aortic (valve) stenosis Status: Acute (5) Bilateral pleural effusion: Code(s): J90 - Pleural effusion, not elsewhere classified Status: Acute (6) Chronic obstructive pulmonary disease: Code(s): J44.9 - Chronic obstructive pulmonary disease, unspecified Status: Acute (7) Hypertension: Qualifiers: Hypertension type: secondary to other renal disorders Qualified Code(s): I15.1 - Hypertension secondary to other renal disorders Code(s): I10 - Essential (primary) hypertension Status: Chronic (8) Type 2 diabetes mellitus: Qualifiers: Chronic kidney disease stage: stage 4 (severe) Diabetes mellitus complication detail: with chronic kidney disease Diabetes mellitus complication status: with kidney complications Diabetes mellitus terminal make up operator insulin use: without terminal make up operator use Qualified Code(s): E11.22 - Type 2 diabetes mellitus with diabetic chronic kidney disease; N18.4 - Chronic kidney disease, stage 4 (severe) Code(s): E11.9 - Type 2 diabetes mellitus without complications Status: Chronic (9) Chronic kidney disease, stage 4 (severe): Code(s): N18.4 - Chronic kidney disease, stage 4 (severe) Status: Chronic Plan The patient presented to the emergency department for evaluation of increasing shortness of breath over the last several weeks as detailed in HPI. Labs, imaging, EKG, and all reports were personally reviewed. He has chronic respiratory failure with hypoxia and is on 2 L at home. He was recently treated for pneumonia though I am not convinced that is what is causing his problem now. Chest CT shows large bilateral pleural effusions which may need to be drained as I am not certain IV diuresis will be enough. Continue judicious IV diuresis with close monitoring of volume status, renal function, and electrolytes. He has no complaints of chest pain and likely his troponin is elevated in the setting of CHF exacerbation and tachycardia. He does have known, severe multivessel coronary artery disease but has been deemed not to be a candidate for bypass surgery. Continue dual anti-platelet therapy, long-acting nitrate, and beta- darrick. Dr. Armijo has been consulted and his recommendations are appreciated. He does not have significant wheezing on exam and likely does not have an acute COPD exacerbation. Blood pressures were reviewed and they are stable. Initiate sliding scale insulin, Accu-Cheks, and hypoglycemic protocol. Renal function is stable on review of previous labs. His home medications will be reviewed and resumed as appropriate. Findings and treatment plan were discussed with the patient. Questions were solicited and answered to satisfaction. The patient's medical management will be taken over by the hospitalist team in a.m. Quality VTE Prophylaxis VTE prophylaxis: mechanical ordered If No VTE Prophylaxis Answer both mechanical and pharmacologic: Reason no pharmacologic proph: medical contraindication (patient on dual anti- platelet therapy, pharmacologic prophylaxis would put him at increased risk for bleeding) Hospitalist MIPS Advance Care Plan I have confirmed that the patient's Advanced Care Plan is present, code status is documented, or surrogate decision maker is listed in patient medical record.: Yes Medication Reconciliation I have utilized all available resources to obtain, update and review the patients current medications (includes all prescriptions, OTC, herbals, cannabis, and nutritional supplements).: Yes
[2024-06-19] MEDS: FUROSEMIDE INJ 40 MG/4 ML VIAL 60 MG IV PUSH (14:16)
[2024-06-19] MEDS: AZITHROMYCIN 500 MG/NS 250 ML 500 MG/250 ML BAG 250 MG IVPB (14:23)
[2024-06-19] MEDS: ONDANSETRON INJ 4 MG/2 ML VIAL IV PUSH (14:43)
--- NOTE | 2024-06-19 14:43 | PC.NURSE ---
Pt became nauseated, flushed. Azithromycin rate decreased to 150ml/hr, Dr. Coyle notified with verbal order for Zofran taken
--- NOTE | 2024-06-19 14:55 | PC.NURSE ---
RN noted wheezes to bilateral lung madsen. Dr. Coyle notified, orders received. Resp therapy informed
[2024-06-19] MEDS: IPRATROPIUM BR 0.02% INH SOLN 0.5 MG/2.5 ML VIAL INHALATION (15:10)
[2024-06-19] MEDS: LEVALBUTEROL NEB 1.25 MG/3 ML INHALATION (15:10)
--- NOTE | 2024-06-19 17:08 | PC.NURSE ---
Labs drawn per IMU request. Pt incontinent of urine. Patience care given & linens changed
[2024-06-19 17:12] LABS: Magnesium 1.8 mg/dL (1.6-2.3); Potassium 4.3 mmol/L (3.4-5.0)
[2024-06-19 17:41] LABS: Troponin I 0.219 ng/mL (0.000-0.034)
[2024-06-19 17:59] LABS: Procalcitonin 0.1 ng/mL
--- NOTE | 2024-06-19 18:00 | ADMGEN ---
This patient, Silvano Duval, was admitted to IMU Room 231-0 @ 1700. Patient oriented to hospital policies and general routines including ID bracelet, bed and alarms, visiting hours, pain management, procedures, bathroom and other care routines, personal items, smoking policy, room service/diet, and visiting hours. Information on how to activate the Rapid Response Team has been discussed. Patient/ are encouraged to report perceived risks to care and to ask questions if they do not understand what they are told or what they should do.
--- NOTE | 2024-06-19 18:25 | P.CONCA_ITS ---
Assessment and Plan Assessment and plan (1) Combined systolic and diastolic cardiac dysfunction: Code(s): I51.89 - Other ill-defined heart diseases Status: Acute Assessment and Plan: Acute on chronic. On Lasix 20 mg IV BID. Monitor UOP. (2) Pneumonia: Code(s): J18.9 - Pneumonia, unspecified organism Status: Acute Assessment and Plan: On antibiotics as per hospitalist. (3) Chronic kidney disease, stage 4 (severe): Code(s): N18.4 - Chronic kidney disease, stage 4 (severe) Status: Chronic Assessment and Plan: Monitor with diuresis. (4) Coronary artery disease: Code(s): I25.10 - Atherosclerotic heart disease of curyung coronary artery without angina pectoris Status: Acute Assessment and Plan: On dual antiplatelets and continue that for additional 3 months given stents in LM and LCx. (5) Hyperlipidemia: Code(s): E78.5 - Hyperlipidemia, unspecified Status: Acute Assessment and Plan: On Atorvastatin. (6) Elevated troponin: Code(s): R79.89 - Other specified abnormal findings of blood chemistry Status: Acute Assessment and Plan: Moderate but flat elevation at 0.235. Doubt ACS as no chest pain. Probably due to CHF and pneumonia in setting of CKD. History of Present Illness History of Present Illness Consult date/time: 06/19/24 18:25 Reason For Visit: Pneumonia, Pneumonitis, Chf, pleural effusion Narrative: 79 yr old man who is my regular cardiology patient presents to ER for SOB. He has a history of severe multivessel CAD (not candidate for CABG due to high risk), NSTEMI, PAD, DM, smoking, hypertension, dyslipidemia, COPD, renal artery stenosis. Daughter is at bedside. Reports sob in last 1 week. He has cough with white sputum production. It was found he has CHF with large pleural effusions and pneumonia. He can walk shorter distances now in from parking lot then has [place]. He quit smoking in Jun 2023. Denies chest pain, edema, dizziness, palpitations. Cardiovascular Procedures Lbd Teacher:: 06/13/23 [facility] with Dr. 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 LM 70-80%, LAD diffuse disease with severe stenosis in apical segment, LCx prox 80%, RCA with diffuse disease with severe stenosis in mid PDA; PCI to prox LCx and PCI to LM. 05/18/23 [facility] at [place] with Dr. Emanuel: LM 75%, LAD ostial 75%, then diffuse 40%, distal 80%, 1st Diag is tiny, 2nd Diag small with 95%, LCx distal 50%, 2nd OM large with prox 60-70%, 3rd OM small, 4th OM medium with ostial 75%, RCA ostial 75%, then 50% diffuse, distal 75%, PDA small with mid 90%. Echo/MUGA:: 02/20/24 Echo: EF 40-45%, mild LVH, grade III diastolic dysfunction (E/e' 38), mod LAE, mild-mod (SABRINA 1.1 cm2), mild MR/TR, trace PI, RVSP 43 mmHg. 05/09/23 Echo: EF 40-45%, mod LVH, grade I diastolic dysfunction, mild LAE. Electrophysiology:: 02/20/24 EKG: Sinus rhythm, ST-T wave abnormality- consider lat/high lat ischemia. Stress Tests:: 02/18/24 CXR: Small bilateral pleural effusion. Opacities in lower lung zones, consider pneumonia. Review of Systems 2 Constitutional: Constitutional: Reports as per HPI, Denies chills, Reports fatigue and Denies fever(s) Cardiovascular: Cardiovascular: Reports as per HPI, Denies chest pain and Denies irregular heart rhythm Respiratory: Respiratory: Reports as per HPI, Reports change in phlegm color and Reports dyspnea Gastrointestinal: Gastrointestinal: Reports as per HPI and Denies abdominal pain Genitourinary: Genitourinary: Reports as per HPI and Denies dysuria Musculoskeletal: Musculoskeletal: Reports as per HPI Neurologic: Reports as per HPI, Denies dizziness and Denies syncope [facility] Past Medical History Medical History (Updated 06/19/24 @ 16:27 by Keena Ortiz PA-C) Chronic kidney disease, stage 4 (severe) Aortic stenosis Chronic respiratory failure with hypoxia, on home oxygen therapy Gastroesophageal reflux disease 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 Hyperlipidemia Chronic obstructive pulmonary disease Deep venous thrombosis Coronary artery disease Carotid stenosis, bilateral Depression due to physical illness Tobacco dependence Non-ST elevation myocardial infarction (NSTEMI) 05/08/2023 and 06/11/2023 Type 2 diabetes mellitus Chronic kidney disease Emphysema lung Allergies Anxiety Peripheral artery disease Hypertension Renal artery stenosis Surgical History Surgical History (Updated 06/19/24 @ 16:17 by Keena Ortiz PA-C) History of cataract extraction History of coronary artery stent placement History of cardiac catheterization History of tonsillectomy Family History Family History Mother Family history of diabetes mellitus in first degree relative Cerebrovascular accident Father Family history of emphysema Sibling Family history of malignant neoplasm Social History Social History (Updated 06/19/24 @ 16:23 by Keena Ortiz PA-C) Social History: Surrogate medical decision maker: Cheryl Duval, spouse. Code status: Full code. Smoking packs per day: 0.5 Smoking cigarettes per day: 10.0 Years smoked: 60 Smoking pack-years: 30.00 Smoking status: Former smoker Tobacco type: cigarettes Alcohol intake: former Substance use: never Substance use type: does not use Do You Feel Safe in your Home?: Yes Lack of Transportation: No Lack of Food: Never True Current Housing: I Have Housing Concerned About Future Housing: No Difficulty Paying Gas/Electric Bills: No Difficulty Paying for Meds: No Currently Unemployed: No Education: High School Diploma/GED Difficulty w/ Childcare or Family Care: No Living arrangements: with family Occupation/Education: retired Spiritual care concerns: No Meds Home Medications and Allergies Home Medications ?Medication ?Instructions ?Recorded ?Confirmed ?Type aspirin 81 mg tablet,delayed 81 mg PO DAILY 12/04/19 06/19/24 History release (Adult Low Dose Aspirin) blood sugar diagnostic (Accu-Chek #100 ea 09/22/20 06/19/24 Rx Flory Plus test strips) albuterol sulfate 90 mcg/actuation 2 puff inhalation TID PRN 05/08/23 06/19/24 History aerosol inhaler Shortness Of Breath Or Wheezing ticagrelor 90 mg tablet 90 mg PO Q12H #60 tabs 09/06/23 06/19/24 Rx empagliflozin 25 mg tablet 25 mg PO QAM #30 tabs 10/15/23 06/19/24 Rx (Jardiance) atorvastatin 40 mg tablet 40 mg PO QPM #90 tabs 01/13/24 06/19/24 Rx glipizide 5 mg tablet 5 mg PO DAILY #90 tabs 02/03/24 06/19/24 Rx cholecalciferol (vitamin D3) 50 50 mcg PO HS 02/14/24 06/19/24 History mcg (2,000 unit) capsule albuterol sulfate 1.25 mg/3 mL 1.25 mg (3 mL) inhalation Q4-6H 02/28/24 06/19/24 Rx solution for nebulization PRN shortness of breath or wheezing #90 mL furosemide 20 mg tablet 20 mg PO QAM #90 tabs 02/29/24 06/19/24 Rx tamsulosin 0.4 mg capsule 0.4 mg PO DAILY #90 caps 05/08/24 06/19/24 Rx pantoprazole 40 mg tablet,delayed 40 mg PO DAILY #90 tabs 05/14/24 06/19/24 Rx release metoprolol succinate 25 mg 25 mg PO Q12H #180 tabs 05/18/24 06/19/24 Rx tablet,extended release 24 hr (Toprol XL) isosorbide mononitrate 20 mg tablet See Rx Instructions .Route 06/13/24 06/19/24 Rx .COMPLEX #180 tabs clonazepam 0.5 mg tablet 0.5 mg PO Q12H PRN anxiety 06/19/24 06/19/24 History sennosides 8.6 mg-docusate sodium 2 tab-cap PO DAILY PRN constipation 06/19/24 06/19/24 History 50 mg tablet (Stimulant Laxative Plus) Allergies Allergy/AdvReac Type Severity Reaction Status Date / Time No Known Allergies Allergy Unknown Verified 06/19/24 17:59 Vital Signs Vital Signs - 24 hr 06/19/24 10:42 06/19/24 10:51 06/19/24 11:00 Temperature 97.9 F Pulse Rate 110 H 110 H Respiratory Rate 30 H Blood Pressure 165/77 H Pulse Oximetry 94 94 Oxygen Delivery Nasal Cannula High Flow Nasal Cannula Oxygen Flow Rate 4 4 06/19/24 11:31 06/19/24 12:02 06/19/24 12:25 Temperature 97.9 F Pulse Rate 104 H 111 H Respiratory Rate 22 H 35 H Blood Pressure 161/95 H 154/70 H Pulse Oximetry 93 94 Oxygen Delivery Nasal Cannula Oxygen Flow Rate 4 06/19/24 14:45 06/19/24 15:13 06/19/24 15:14 Temperature 98.4 F Pulse Rate 123 H 117 H Respiratory Rate 26 H 20 Blood Pressure 120/79 Pulse Oximetry 98 97 Oxygen Delivery Nasal Cannula Oxygen Flow Rate 4 06/19/24 17:08 Temperature 98.2 F Pulse Rate 104 H Respiratory Rate 24 H Blood Pressure 148/79 H Pulse Oximetry 97 Oxygen Delivery Oxygen Flow Rate Exam 2 Const: General: cooperative, healthy appearing and comfortable Resp: Auscultation: no wheezes and diminished lung sounds Cardio: Rate: tachycardic Rhythm: regular rhythm Heart sounds: Murmur heart sound present (I/ systolic murmur RICS) Peripheral pulses: dorsalis pedis present GI: GI Palp: No abdominal tenderness and Yes Soft to palpation Neuro: General: oriented to person, oriented to place and oriented to time Extrem: Right lower extremity: no edema Left lower extremity: no edema Results Labs and Meds 06/19/24 10:55 06/19/24 16:51 Lab results: Cardiac Enzymes 06/19/24 06/19/24 06/19/24 Range/Units 10:55 10:55 16:51 AST 20 (17-59) U/L Troponin I 0.235 H* Cancelled 0.219 H* (0.000-0.034) ng/mL Coagulation 06/19/24 06/19/24 Range/Units 10:54 10:54 PT 14.3 (11.1-14.7) Seconds APTT 26.9 Cancelled (22.3-36.8) Seconds CBC 06/19/24 Range/Units 10:55 WBC 12.2 H (4.5-10.0) K/mm3 RBC 4.87 (4.6-6.20) M/mm3 Hgb 14.1 (14.0-18.0) g/dL Hct 44.2 (42.0-52.0) % Plt Count 311 (150-375) k/mm3 Lymph # (Auto) 0.77 L (0.9-3.2) K/mm3 Emmons # (Auto) 1.0 H (0.1-0.6) K/mm3 Eos # (Auto) 0.1 (0-0.3) K/mm3 Baso # (Auto) 0.1 (0.0-0.1) K/mm3 Comprehensive Metabolic Panel 06/19/24 06/19/24 Range/Units 10:55 16:51 Sodium 137 (137-145) mmol/L Potassium 4.3 4.3 (3.4-5.0) mmol/L Chloride 97 L (98-107) mmol/L Carbon Dioxide 30 (22-30) mmol/L BUN 43 H D (9-20) mg/dL Creatinine 1.95 H (0.7-1.3) mg/dL Glucose 171 H (65-110) mg/dL Calcium 9.0 (8.4-10.2) mg/dL AST 20 (17-59) U/L ALT 18 (6-50) U/L Alkaline Phosphatase 83 (38-126) U/L Total Protein 8.0 (6.3-8.2) g/dL Albumin 4.5 (3.5-5.1) g/dL Intake and Output 06/19/24 06/19/24 06/19/24 07:59 15:59 23:59 Intake Total 133.3 406.7 Balance 133.3 406.7 Intake: IV 133.3 166.7 Azithromycin 500 mg/Ns 250 ml 83.3 166.7 500 mg In 250 ml @ 250 mls/hr IVPB Q24H [facility] Rx#:[id number] cefTRIAXone 1 GM/NS 50 ML 1 gm 50 In 50 ml @ 100 mls/hr IVPB Q24H [facility] Rx#:[id number] Oral 240 Patient Weight 06/19/24 23:59 Weight 53.3 kg
[2024-06-19 20:31] LABS: Troponin I 0.197 ng/mL (0.000-0.034)
[2024-06-19] MEDS: CHOLECALCIFEROL 1,000 UNITS TABLET 2000 UNITS PO (20:37)
[2024-06-19] MEDS: ISOSORBIDE DINITRATE 20 MG TABLET PO (20:37)
[2024-06-19] MEDS: ATORVASTATIN 40 MG TABLET PO (20:38)
[2024-06-19] MEDS: TICAGRELOR 90 MG TABLET PO (20:38)
[2024-06-19] MEDS: METOPROLOL SUCCINATE EXT REL 25 MG TABCR PO (20:38)
[2024-06-19] MEDS: INSULIN ASPART (*BKC) 100 UNITS/ML SUB-Q (20:38)
[2024-06-19] MEDS: FUROSEMIDE INJ 40 MG/4 ML VIAL 20 MG IV PUSH (20:39)
[2024-06-19] MEDS: clonazePAM (*CRX) 0.5 MG TABLET PO (20:42)
[2024-06-19 20:50] LABS: Glucose Point of Care 229 mg/dl (65-105)
[2024-06-20] VITALS (22 sets, daily range): BP systolic 128–159; BP diastolic 66–82; PULSE 82–107; RESP 18–26; TEMP 36.3–36.6; O2SAT 91–98; BMI 18.9
[2024-06-20] MEDS: ALBUTEROL SULFATE NEB 2.5 MG/3 ML INH 1.25 MG INHALATION (02:05)
[2024-06-20 04:16] LABS: Basophils Absolute Auto 0.1 K/mm3 (0.0-0.1); Basophils Percent Auto 0.8 % (0.2-1.2); Eosinophils Absolute Auto 0.2 K/mm3 (0-0.3); Eosinophils Percent Auto 1.8 % (0-4.4); Hematocrit 39.4 % (42.0-52.0); Hemoglobin 12.7 g/dL (14.0-18.0); Immature Granulocyte Absolute 0.07 K/mm3 (0.00-0.031); Immature Granulocyte Percent A 0.6 % (0-0.5); Lymphocytes Absolute Auto 0.89 K/mm3 (0.9-3.2); Lymphocytes Percent Auto 8.2 % (18.3-44.2); Mean Corpuscular HGB Conc 32.2 g/dl (32-36); Mean Corpuscular Hemoglobin 29.1 pg (26-34); Mean Corpuscular Volume 90.4 fl (80-100); Monocytes Absolute Auto 1.2 K/mm3 (0.1-0.6); Monocytes Percent Auto 10.7 % (2.6-8.5); Neutrophils Absolute Auto 8.5 K/mm3 (1.3-6.7); Neutrophils Percent Auto 77.9 % (45.5-73.1); Platelet Count Result 253 k/mm3 (150-375); Red Blood Count 4.36 M/mm3 (4.6-6.20); Red Cell Distribution Width 14.6 % (11.5-14.5); White Blood Count 10.9 K/mm3 (4.5-10.0)
[2024-06-20 04:28] LABS: Anion Gap 9 mmol/L (4-12); Blood Urea Nitrogen 48 mg/dL (9-20); Calcium 8.2 mg/dL (8.4-10.2); Carbon Dioxide 33 mmol/L (22-30); Chloride 95 mmol/L (98-107); Estimated CRCL calculation 18 ml/min; Estimated Glomerular Filt Rate 28; Glucose 108 mg/dL (65-110); Sodium 137 mmol/L (137-145)
--- NOTE | 2024-06-20 07:48 | PM.PNCARD ---
Progress Note: A&P Assessment and Plan (1) Combined systolic and diastolic cardiac dysfunction: Code(s): I51.89 - Other ill-defined heart diseases Status: Acute Assessment and Plan: Acute on chronic. On Lasix 20 mg IV BID. Monitor UOP. Net balance - 0.5L. I won't increase Lasix dose at this time as kidney function worsens. (2) Pneumonia: Code(s): J18.9 - Pneumonia, unspecified organism Status: Acute Assessment and Plan: On antibiotics as per hospitalist. (3) Chronic kidney disease, stage 4 (severe): Code(s): N18.4 - Chronic kidney disease, stage 4 (severe) Status: Chronic Assessment and Plan: Monitor with diuresis. (4) Coronary artery disease: Code(s): I25.10 - Atherosclerotic heart disease of [place] coronary artery without angina pectoris Status: Acute Assessment and Plan: On dual antiplatelets and continue that for additional 3 months given stents in LM and LCx. (5) Hyperlipidemia: Code(s): E78.5 - Hyperlipidemia, unspecified Status: Acute Assessment and Plan: On Atorvastatin. (6) Elevated troponin: Code(s): R79.89 - Other specified abnormal findings of blood chemistry Status: Acute Assessment and Plan: Moderate but flat elevation at 0.235. Doubt ACS as no chest pain. Probably due to CHF and pneumonia in setting of CKD. Subjective Date/time seen: 06/20/24 07:48 Interval history: Still has sob but improving. No chest pains. Exam Const: General: cooperative, healthy appearing and comfortable Orientation/consciousness: oriented to person, oriented to place and oriented to time Resp: Auscultation: no wheezes and diminished lung sounds Cardio: Rate: regular rate Rhythm: regular rhythm Heart sounds: Murmur heart sound present (I/ systolic murmur RICS) Peripheral pulses: dorsalis pedis present Neuro: General: oriented to person, oriented to place and oriented to time Extrem: Right lower extremity: no edema Left lower extremity: no edema Objective Data Vital Signs Vital Signs: Vital Signs - 24 hr 06/19/24 10:42 06/19/24 10:51 06/19/24 11:00 Temperature 97.9 F Pulse Rate 110 H 110 H Respiratory Rate 30 H Blood Pressure 165/77 H Pulse Oximetry 94 94 Oxygen Delivery Nasal Cannula High Flow Nasal Cannula Oxygen Flow Rate 4 4 06/19/24 11:31 06/19/24 12:02 06/19/24 12:25 Temperature 97.9 F Pulse Rate 104 H 111 H Respiratory Rate 22 H 35 H Blood Pressure 161/95 H 154/70 H Pulse Oximetry 93 94 Oxygen Delivery Nasal Cannula Oxygen Flow Rate 4 06/19/24 14:45 06/19/24 15:13 06/19/24 15:14 Temperature 98.4 F Pulse Rate 123 H 117 H Respiratory Rate 26 H 20 Blood Pressure 120/79 Pulse Oximetry 98 97 Oxygen Delivery Nasal Cannula Oxygen Flow Rate 4 06/19/24 17:08 06/19/24 17:35 06/19/24 18:00 Temperature 98.2 F 98.2 F Pulse Rate 104 H 113 H 117 H Respiratory Rate 24 H 26 H Blood Pressure 148/79 H 149/80 H Pulse Oximetry 97 95 Oxygen Delivery Oxygen Flow Rate 06/19/24 18:15 06/19/24 20:00 06/19/24 20:00 Temperature Pulse Rate 112 H 116 H Respiratory Rate 24 H Blood Pressure Pulse Oximetry 95 94 Oxygen Delivery Nasal Cannula Nasal Cannula Oxygen Flow Rate 4 4 06/19/24 20:09 06/19/24 20:38 06/19/24 22:00 Temperature 97.8 F Pulse Rate 115 H 114 H 113 H Respiratory Rate 26 H Blood Pressure 152/85 H Pulse Oximetry 96 Oxygen Delivery Oxygen Flow Rate 06/19/24 23:53 06/20/24 00:00 06/20/24 00:00 Temperature 97.8 F Pulse Rate 96 107 H Respiratory Rate 26 H Blood Pressure 142/84 H Pulse Oximetry 95 92 Oxygen Delivery Nasal Cannula Oxygen Flow Rate 4 06/20/24 02:00 06/20/24 02:05 06/20/24 02:12 Temperature Pulse Rate 93 93 90 Respiratory Rate 20 20 Blood Pressure Pulse Oximetry Oxygen Delivery Oxygen Flow Rate 06/20/24 04:00 06/20/24 04:00 06/20/24 05:57 Temperature 97.7 F Pulse Rate 85 82 Respiratory Rate 26 H Blood Pressure 142/66 H Pulse Oximetry 92 94 Oxygen Delivery Nasal Cannula Oxygen Flow Rate 4 06/20/24 06:00 06/20/24 07:42 Temperature 97.5 F L Pulse Rate 90 90 Respiratory Rate 20 Blood Pressure 152/82 H Pulse Oximetry 91 Oxygen Delivery Oxygen Flow Rate Intake/Output Intake/Output: Intake & Output 06/17/24 06/18/24 06/19/24 06/20/24 23:59 23:59 23:59 23:59 Intake Total 540.0 240 Output Total 400 950 Balance 140.0 -710 Meds/Results Medications: Active Medications Generic Name Dose Route Start Last Admin Trade Name Freq PRN Reason Stop Dose Admin Acetaminophen 650 mg 06/19/24 14:15 Acetaminophen 325 Mg Tablet PO Q4H PRN Mild Pain (1-3) or Fever Albuterol 1.25 mg 06/19/24 18:43 06/20/24 02:05 Albuterol Sulfate Neb 2.5 Mg/3 Ml Inh INHALATION 1.25 mg Q4-6H PRN Administration shortness of breath or wheezing Aspirin 81 mg 06/20/24 09:00 Aspirin 81 Mg Enteric Tablet PO DAILY TOM Atorvastatin Calcium 40 mg 06/19/24 18:45 06/19/24 20:38 Atorvastatin 40 Mg Tablet PO 40 mg QPM TOM Administration Clonazepam 0.5 mg 06/19/24 18:32 06/19/24 20:42 Clonazepam (*Crx) 0.5 Mg Tablet PO 0.5 mg Q12H PRN Administration anxiety Dextrose 12.5 gm 06/19/24 16:31 Dextrose 50% 25 Gm/50 Ml Syringe IV PUSH PRN PRN Hypoglycemia Protocol Empagliflozin 25 mg 06/20/24 09:00 Empagliflozin 25 Mg Tablet PO QAM TOM Furosemide 20 mg 06/19/24 21:00 06/19/24 20:39 Furosemide Inj 40 Mg/4 Ml Vial IV PUSH 20 mg Q12HR TOM Administration Glipizide 5 mg 06/20/24 09:00 Glipizide 5 Mg Tablet PO DAILY TOM Glucagon 1 mg 06/19/24 16:31 Glucagon For Inj 1 Mg Vial IM PRN PRN Hypoglycemia Protocol Glucose 15 gm 06/19/24 16:31 Glucose Oral Gel 15 Gm Of Glucse In 37.5 Gm Tube PO PRN PRN Hypoglycemia Protocol Ceftriaxone Sodium 1 gm in 50 mls @ 100 mls/hr 06/19/24 14:00 06/19/24 14:45 Rocephin 1 Gm/Ns 50 Ml IVPB Infused Q24H TOM Infusion Azithromycin 500 mg in 250 mls @ 250 mls/hr 06/19/24 15:00 06/19/24 16:50 Zithromax IVPB Infused Q24H TOM Infusion Dextrose 1,000 mls @ 100 mls/hr 06/19/24 16:31 Dextrose 5% 1,000 Ml IVPB PRN PRN Hypoglycemia Protocol Insulin Aspart 2 - 5 units 06/19/24 17:00 06/19/24 19:35 Insulin Aspart (*Bkc) 100 Units/Ml SUB-Q Not Given TIDWM [facility] Protocol Insulin Aspart 1 - 2 units 06/19/24 21:00 06/19/24 20:38 Insulin Aspart (*Bkc) 100 Units/Ml SUB-Q 1 units HS [facility] Administration Protocol Isosorbide Dinitrate 20 mg 06/19/24 19:50 06/19/24 20:37 Isosorbide Dinitrate 20 Mg Tablet PO 20 mg BID [facility] Administration Metoprolol Succinate 25 mg 06/19/24 21:00 06/19/24 20:38 Metoprolol Succinate Ext Rel 25 Mg Tabcr PO 25 mg Q12H [facility] Administration Pantoprazole Sodium 40 mg 06/20/24 09:00 Pantoprazole 40 Mg Tablet PO DAILY TOM Senna/Docusate Sodium 2 tab 06/19/24 18:32 Senna/Docusate Sodium Tablet PO DAILY PRN constipation Tamsulosin HCl 0.4 mg 06/20/24 09:00 Tamsulosin Hcl 0.4 Mg Capsule PO DAILY [facility] Ticagrelor 90 mg 06/19/24 21:00 06/19/24 20:38 Ticagrelor 90 Mg Tablet PO 90 mg Q12H [facility] Administration Vitamin D 2,000 units 06/19/24 21:00 06/19/24 20:37 Cholecalciferol 1,000 Units Tablet PO 2,000 units HS [facility] Administration Radiology Results: ITS Impressions Chest X-Ray 06/19/24 11:26 IMPRESSION: Cardiomegaly with cardiac decompensation and pulmonary edema. Bilateral basal atelectasis versus pneumonia with pleural effusion. Bilateral pneumonitis is also highly suggestive. Chest CTA 06/19/24 13:21 IMPRESSION: 1. No pulmonary embolism. 2. Bilateral basilar atelectasis versus pneumonia with bilateral large pleural effusion. 3. Trace of pericardial effusion with cardiomegaly. 4. Bilateral interstitial thickening which may indicate edema versus pneumonitis. Labs Labs: Laboratory Results - last 24 hr 06/19/24 06/19/24 06/19/24 10:54 10:54 10:55 WBC 12.2 H RBC 4.87 Hgb 14.1 Hct 44.2 MCV 90.8 MCH 29.0 MCHC 31.9 L RDW 14.5 Plt Count 311 MPV 10.6 H Immature Gran % (Auto) 0.8 H Neut % (Auto) 83.1 H Lymph % (Auto) 6.3 L [place] % (Auto) 8.3 Eos % (Auto) 0.8 Baso % (Auto) 0.7 Lymph # (Auto) 0.77 L [place] # (Auto) 1.0 H Eos # (Auto) 0.1 Baso # (Auto) 0.1 Abs Immat Gran (auto) 0.10 H Absolute Neuts (auto) 10.2 H Absolute Nucleated RBC 0.000 Nucleated RBC % 0.0 PT 14.3 INR 1.1 APTT 26.9 Cancelled Puncture Site ABG pH ABG pCO2 ABG pO2 ABG PO2/FiO2 Ratio ABG HCO3 ABG O2 Saturation ABG O2 Content ABG Base Excess A-a Gradient Oxyhemoglobin Total Hemoglobin O2 Delivery Device O2 Liters/Min FiO2 Sodium 137 Potassium 4.3 Chloride 97 L Carbon Dioxide 30 Anion Gap 10 BUN 43 H D Creatinine 1.95 H Estim Creat Clear Calc 22 Estimated GFR 33 L Glucose 171 H POC Capillary Glucose Lactic Acid Calcium 9.0 Magnesium 1.9 Total Bilirubin 1.4 H AST 20 ALT 18 Alkaline Phosphatase 83 Troponin I 0.235 H* C-Reactive Protein 3.1 H NT-Pro-B Natriuret Pep Total Protein Albumin Procalcitonin TSH (Reflex) Urine Color Urine Appearance Urine pH Ur Specific [place] Urine Protein Urine Glucose (UA) Urine Ketones Ur Blood (Man) Urine Nitrate Urine Bilirubin Urine Urobilinogen Leukocyte Esterase Rfl Urine RBC Urine WBC Ur Squamous Epith Cells Urine Bacteria Urine Casts Influenza A (RT-PCR) Influenza B (RT-PCR) RSV (RT-PCR) SARS-CoV-2 RNA (RT-PCR) 06/19/24 06/19/24 06/19/24 10:55 11:51 11:58 WBC RBC Hgb Hct MCV MCH MCHC RDW Plt Count MPV Immature Gran % (Auto) Neut % (Auto) Lymph % (Auto) [place] % (Auto) Eos % (Auto) Baso % (Auto) Lymph # (Auto) [place] # (Auto) Eos # (Auto) Baso # (Auto) Abs Immat Gran (auto) Absolute Neuts (auto) Absolute Nucleated RBC Nucleated RBC % PT INR APTT Puncture Site Left radial ABG pH 7.484 H ABG pCO2 36.1 ABG pO2 70.6 L ABG PO2/FiO2 Ratio 1.96 ABG HCO3 26.5 H ABG O2 Saturation 95.4 ABG O2 Content 19.0 ABG Base Excess 3.3 A-a Gradient 144.2 Oxyhemoglobin 93.8 Total Hemoglobin 14.4 O2 Delivery Device Nasal cannula O2 Liters/Min 4.0 FiO2 36 Sodium Potassium Chloride Carbon Dioxide Anion Gap BUN Creatinine Estim Creat Clear Calc Estimated GFR Glucose POC Capillary Glucose Lactic Acid 1.7 Calcium Magnesium Total Bilirubin AST ALT Alkaline Phosphatase Troponin I Cancelled C-Reactive Protein NT-Pro-B Natriuret Pep > 33510 H Total Protein 8.0 Albumin 4.5 Procalcitonin TSH (Reflex) Urine Color Urine Appearance Urine pH Ur Specific [place] Urine Protein Urine Glucose (UA) Urine Ketones Ur Blood (Man) Urine Nitrate Urine Bilirubin Urine Urobilinogen Leukocyte Esterase Rfl Urine RBC Urine WBC Ur Squamous Epith Cells Urine Bacteria Urine Casts Influenza A (RT-PCR) Negative Influenza B (RT-PCR) Negative RSV (RT-PCR) Negative SARS-CoV-2 RNA (RT-PCR) Negative 06/19/24 06/19/24 06/19/24 12:00 16:51 19:58 WBC RBC Hgb Hct MCV MCH MCHC RDW Plt Count MPV Immature Gran % (Auto) Neut % (Auto) Lymph % (Auto) [place] % (Auto) Eos % (Auto) Baso % (Auto) Lymph # (Auto) [place] # (Auto) Eos # (Auto) Baso # (Auto) Abs Immat Gran (auto) Absolute Neuts (auto) Absolute Nucleated RBC Nucleated RBC % PT INR APTT Puncture Site ABG pH ABG pCO2 ABG pO2 ABG PO2/FiO2 Ratio ABG HCO3 ABG O2 Saturation ABG O2 Content ABG Base Excess A-a Gradient Oxyhemoglobin Total Hemoglobin O2 Delivery Device O2 Liters/Min FiO2 Sodium Potassium 4.3 Chloride Carbon Dioxide Anion Gap BUN Creatinine Estim Creat Clear Calc Estimated GFR Glucose POC Capillary Glucose Lactic Acid Calcium Magnesium 1.8 Total Bilirubin AST ALT Alkaline Phosphatase Troponin I 0.219 H* 0.197 H* C-Reactive Protein NT-Pro-B Natriuret Pep Total Protein Albumin Procalcitonin 0.1 TSH (Reflex) 2.870 Urine Color Yellow Urine Appearance Clear Urine pH 6.0 Ur Specific [place] 1.028 Urine Protein 3+ H Urine Glucose (UA) 3+ H Urine Ketones Trace H Ur Blood (Man) Negative Urine Nitrate Negative Urine Bilirubin Negative Urine Urobilinogen 0.2 Leukocyte Esterase Rfl Negative Urine RBC 0-2 Urine WBC 0-5 Ur Squamous Epith Cells None seen Urine Bacteria None seen Urine Casts 0-2 Influenza A (RT-PCR) Influenza B (RT-PCR) RSV (RT-PCR) SARS-CoV-2 RNA (RT-PCR) 06/19/24 06/20/24 20:36 04:06 WBC 10.9 H RBC 4.36 L Hgb 12.7 L Hct 39.4 L MCV 90.4 MCH 29.1 MCHC 32.2 RDW 14.6 H Plt Count 253 MPV 10.0 Immature Gran % (Auto) 0.6 H Neut % (Auto) 77.9 H Lymph % (Auto) 8.2 L [place] % (Auto) 10.7 H Eos % (Auto) 1.8 Baso % (Auto) 0.8 Lymph # (Auto) 0.89 L [place] # (Auto) 1.2 H Eos # (Auto) 0.2 Baso # (Auto) 0.1 Abs Immat Gran (auto) 0.07 H Absolute Neuts (auto) 8.5 H Absolute Nucleated RBC 0.000 Nucleated RBC % 0.0 PT INR APTT Puncture Site ABG pH ABG pCO2 ABG pO2 ABG PO2/FiO2 Ratio ABG HCO3 ABG O2 Saturation ABG O2 Content ABG Base Excess A-a Gradient Oxyhemoglobin Total Hemoglobin O2 Delivery Device O2 Liters/Min FiO2 Sodium 137 Potassium 4.0 Chloride 95 L Carbon Dioxide 33 H Anion Gap 9 BUN 48 H Creatinine 2.30 H Estim Creat Clear Calc 18 Estimated GFR 28 L Glucose 108 POC Capillary Glucose 229 H Lactic Acid Calcium 8.2 L Magnesium Total Bilirubin AST ALT Alkaline Phosphatase Troponin I C-Reactive Protein NT-Pro-B Natriuret Pep Total Protein Albumin Procalcitonin TSH (Reflex) Urine Color Urine Appearance Urine pH Ur Specific [place] Urine Protein Urine Glucose (UA) Urine Ketones Ur Blood (Man) Urine Nitrate Urine Bilirubin Urine Urobilinogen Leukocyte Esterase Rfl Urine RBC Urine WBC Ur Squamous Epith Cells Urine Bacteria Urine Casts Influenza A (RT-PCR) Influenza B (RT-PCR) RSV (RT-PCR) SARS-CoV-2 RNA (RT-PCR)
[2024-06-20 08:14] LABS: Glucose Point of Care 119 mg/dl (65-105)
[2024-06-20] MEDS: EMPAGLIFLOZIN 25 MG TABLET PO (09:23)
[2024-06-20] MEDS: PANTOPRAZOLE 40 MG TABLET PO (09:23)
[2024-06-20] MEDS: TICAGRELOR 90 MG TABLET PO ×2 (09:23→21:19)
[2024-06-20] MEDS: glipiZIDE 5 MG TABLET PO (09:23)
[2024-06-20] MEDS: ISOSORBIDE DINITRATE 20 MG TABLET PO ×2 (09:23→17:25)
[2024-06-20] MEDS: METOPROLOL SUCCINATE EXT REL 25 MG TABCR PO ×2 (09:23→21:20)
[2024-06-20] MEDS: ASPIRIN 81 MG ENTERIC TABLET PO (09:23)
[2024-06-20] MEDS: FUROSEMIDE INJ 40 MG/4 ML VIAL 20 MG IV PUSH (09:24)
[2024-06-20] MEDS: FLUTICASONE PROPIONATE 0.05% NA SPR 16 GM BTL (*BKC) 1 SPRAY NASAL ×2 (09:24→21:19)
[2024-06-20] MEDS: TAMSULOSIN HCL 0.4 MG CAPSULE PO (09:24)
--- NOTE | 2024-06-20 09:53 | P.PNIM_ITS ---
Progress Note: A&P Assessment and Plan (1) Acute on chronic combined systolic and diastolic heart failure: Code(s): I50.43 - Acute on chronic combined systolic (congestive) and diastolic (congestive) heart failure Status: Acute (2) Acute and chronic respiratory failure with hypoxia: Code(s): J96.21 - Acute and chronic respiratory failure with hypoxia Status: Acute (3) Elevated troponin: Code(s): R79.89 - Other specified abnormal findings of blood chemistry Status: Acute (4) Aortic stenosis: Code(s): I35.0 - Nonrheumatic aortic (valve) stenosis Status: Acute (5) Bilateral pleural effusion: Code(s): J90 - Pleural effusion, not elsewhere classified Status: Acute (6) Chronic obstructive pulmonary disease: Code(s): J44.9 - Chronic obstructive pulmonary disease, unspecified Status: Acute (7) Hypertension: Qualifiers: Hypertension type: secondary to other renal disorders Qualified Code(s): I15.1 - Hypertension secondary to other renal disorders Code(s): I10 - Essential (primary) hypertension Status: Chronic (8) Type 2 diabetes mellitus: Qualifiers: Chronic kidney disease stage: stage 4 (severe) Diabetes mellitus complication detail: with chronic kidney disease Diabetes mellitus complication status: with kidney complications Diabetes mellitus shelter insulin use: without middle or intermediate school principal use Qualified Code(s): E11.22 - Type 2 diabetes mellitus with diabetic chronic kidney disease; N18.4 - Chronic kidney disease, stage 4 (severe) Code(s): E11.9 - Type 2 diabetes mellitus without complications Status: Chronic (9) Chronic kidney disease, stage 4 (severe): Code(s): N18.4 - Chronic kidney disease, stage 4 (severe) Status: Chronic (10) CHF exacerbation: Qualifiers: Heart failure type: systolic Qualified Code(s): I50.23 - Acute on chronic systolic (congestive) heart failure Code(s): I50.9 - Heart failure, unspecified Status: Acute Plan 79 years old gentleman with history of CAD, combined CHF, GERD, type 2 diabetes, PVD, COPD, chronic respiratory failure with O2 home therapy, BPH, brought to ED by EMS because of shortness breath. Patient also has Raynaud's and nonproductive cough. Patient was found have hypoxemia in the ED,SpO2 in the mid 90s on 5 L. Heart rate has been in the low 100s to 120s an EKG shows a sinus tachycardia with ST T-wave abnormalities in the lateral leads. Labs were significant for a troponin of 0.235, proBNP greater than 30,000, BUN 43, creatinine 1.95, WBC count 12.2. He tested negative for influenza, COVID, and RSV. chest CTA was negative for pulmonary embolism but did show bibasilar atelectasis versus pneumonia, large bilateral pleural effusions, and trace pericardial effusion as well as bilateral interstitial thickening which may indicate edema versus pneumonitis Acute on chronic combined heart failure Shortness breath, worse with exertion, elevated BMP Chest CT shows large bilateral pleural effusions Continue IV Lasix Consult document imaging specialist for evaluation treatment History of CAD Denies chest pain Continue aspirin and Brilinta p.o. Further assessment management per document imaging specialist COPD Possible COPD exacerbation due to pneumonia Patient received azithromycin ceftriaxone in the ED Continue the treatment Continue DuoNeb and a boot nebulizer. Start O2 therapy p.r.n. to keep pulse ox above 94 Continue methylprednisone IV Acute on chronic respiratory failure Possible resulting from CHF, COPD, pleural effusion Patient is on 4 oxygen Follow-up ABG Pneumonia and pleural effusion CT showed Bilateral basilar atelectasis versus pneumonia with bilateral large pleural effusion. Consult pulmonology for evaluation treatment Type 2 diabetes Initiate sliding scale insulin, Accu-Cheks, and hypoglycemic protocol. CKD stage 4 BUN creatinine elevated, but on the baseline Avoid nephrotoxic medication Follow-up BMP Follow-up urinalysis Essential hypertension Blood pressure stable Subjective Date/time seen: 06/20/24 09:53 Interval history: I saw exam patient today, patient feels better, dyspnea is improving. Patient still has a cough with scant phlegm. Patient denies chest pain abdomen pain nausea vomiting. Exam Narrative: GENERAL: Pleasant, in no acute distress. Well-nourished. - EYES: EOMI. Anicteric. - HENT: Moist mucous membranes. - LUNGS: Coarse breath sound bilateral base, no wheezing, rhonchi, or rales. - CARDIOVASCULAR: Regular rate and rhyth m. No murmur. No JVD. - ABDOMEN: Soft, non-tender and non-dist ended. No palpable masses. - EXTREMITIES: No edema. Peripheral puls es 2+. Non-tender. - NEUROLOGIC: No focal neurological defi cits. CN II-XII grossly intact. - PSYCHIATRIC: Awake, Alert and oriented x 3. Appropriate mood and affect. - SKIN: No rashes or lesions. Warm. - LYMPH: No cervical lymphadenopathy. Objective Data Vital Signs Vital Signs: Vital Signs - 24 hr 06/19/24 10:42 06/19/24 10:51 06/19/24 11:00 Temperature 97.9 F Pulse Rate 110 H 110 H Respiratory Rate 30 H Blood Pressure 165/77 H Pulse Oximetry 94 94 Oxygen Delivery Nasal Cannula High Flow Nasal Cannula Oxygen Flow Rate 4 4 06/19/24 11:31 06/19/24 12:02 06/19/24 12:25 Temperature 97.9 F Pulse Rate 104 H 111 H Respiratory Rate 22 H 35 H Blood Pressure 161/95 H 154/70 H Pulse Oximetry 93 94 Oxygen Delivery Nasal Cannula Oxygen Flow Rate 4 06/19/24 14:45 06/19/24 15:13 06/19/24 15:14 Temperature 98.4 F Pulse Rate 123 H 117 H Respiratory Rate 26 H 20 Blood Pressure 120/79 Pulse Oximetry 98 97 Oxygen Delivery Nasal Cannula Oxygen Flow Rate 4 06/19/24 17:08 06/19/24 17:35 06/19/24 18:00 Temperature 98.2 F 98.2 F Pulse Rate 104 H 113 H 117 H Respiratory Rate 24 H 26 H Blood Pressure 148/79 H 149/80 H Pulse Oximetry 97 95 Oxygen Delivery Oxygen Flow Rate 06/19/24 18:15 06/19/24 20:00 06/19/24 20:00 Temperature Pulse Rate 112 H 116 H Respiratory Rate 24 H Blood Pressure Pulse Oximetry 95 94 Oxygen Delivery Nasal Cannula Nasal Cannula Oxygen Flow Rate 4 4 06/19/24 20:09 06/19/24 20:38 06/19/24 22:00 Temperature 97.8 F Pulse Rate 115 H 114 H 113 H Respiratory Rate 26 H Blood Pressure 152/85 H Pulse Oximetry 96 Oxygen Delivery Oxygen Flow Rate 06/19/24 23:53 06/20/24 00:00 06/20/24 00:00 Temperature 97.8 F Pulse Rate 96 107 H Respiratory Rate 26 H Blood Pressure 142/84 H Pulse Oximetry 95 92 Oxygen Delivery Nasal Cannula Oxygen Flow Rate 4 06/20/24 02:00 06/20/24 02:05 06/20/24 02:12 Temperature Pulse Rate 93 93 90 Respiratory Rate 20 20 Blood Pressure Pulse Oximetry Oxygen Delivery Oxygen Flow Rate 06/20/24 04:00 06/20/24 04:00 06/20/24 05:57 Temperature 97.7 F Pulse Rate 85 82 Respiratory Rate 26 H Blood Pressure 142/66 H Pulse Oximetry 92 94 Oxygen Delivery Nasal Cannula Oxygen Flow Rate 4 06/20/24 06:00 06/20/24 07:42 06/20/24 09:23 Temperature 97.5 F L Pulse Rate 90 90 100 Respiratory Rate 20 Blood Pressure 152/82 H Pulse Oximetry 91 Oxygen Delivery Oxygen Flow Rate Intake/Output Intake/Output: Intake & Output 06/17/24 06/18/24 06/19/24 06/20/24 23:59 23:59 23:59 23:59 Intake Total 540.0 480 Output Total 400 950 Balance 140.0 -470 Meds/Results Medications: Active Medications Generic Name Dose Route Start Last Admin Trade Name Freq PRN Reason Stop Dose Admin Acetaminophen 650 mg 06/19/24 14:15 Acetaminophen 325 Mg Tablet PO Q4H PRN Mild Pain (1-3) or Fever Albuterol 1.25 mg 06/19/24 18:43 06/20/24 02:05 Albuterol Sulfate Neb 2.5 Mg/3 Ml Inh INHALATION 1.25 mg Q4-6H PRN Administration shortness of breath or wheezing Aspirin 81 mg 06/20/24 09:00 06/20/24 09:23 Aspirin 81 Mg Enteric Tablet PO 81 mg DAILY TOM Administration Atorvastatin Calcium 40 mg 06/19/24 18:45 06/19/24 20:38 Atorvastatin 40 Mg Tablet PO 40 mg QPM TOM Administration Clonazepam 0.5 mg 06/19/24 18:32 06/19/24 20:42 Clonazepam (*Crx) 0.5 Mg Tablet PO 0.5 mg Q12H PRN Administration anxiety Dextrose 12.5 gm 06/19/24 16:31 Dextrose 50% 25 Gm/50 Ml Syringe IV PUSH PRN PRN Hypoglycemia Protocol Empagliflozin 25 mg 06/20/24 09:00 06/20/24 09:23 Empagliflozin 25 Mg Tablet PO 25 mg QAM TOM Administration Fluticasone Propionate 1 spray 06/20/24 09:00 06/20/24 09:24 Fluticasone Propionate 0.05% Na Spr 16 Gm Btl (*Bkc) NASAL 1 spray Q12HR TOM Administration Furosemide 20 mg 06/19/24 21:00 06/20/24 09:24 Furosemide Inj 40 Mg/4 Ml Vial IV PUSH 20 mg Q12HR TOM Administration Glipizide 5 mg 06/20/24 09:00 06/20/24 09:23 Glipizide 5 Mg Tablet PO 5 mg DAILY TOM Administration Glucagon 1 mg 06/19/24 16:31 Glucagon For Inj 1 Mg Vial IM PRN PRN Hypoglycemia Protocol Glucose 15 gm 06/19/24 16:31 Glucose Oral Gel 15 Gm Of Glucse In 37.5 Gm Tube PO PRN PRN Hypoglycemia Protocol Ceftriaxone Sodium 1 gm in 50 mls @ 100 mls/hr 06/19/24 14:00 06/19/24 14:45 Rocephin 1 Gm/Ns 50 Ml IVPB Infused Q24H TOM Infusion Azithromycin 500 mg in 250 mls @ 250 mls/hr 06/19/24 15:00 06/19/24 16:50 Zithromax IVPB Infused Q24H TOM Infusion Dextrose 1,000 mls @ 100 mls/hr 06/19/24 16:31 Dextrose 5% 1,000 Ml IVPB PRN PRN Hypoglycemia Protocol Insulin Aspart 2 - 5 units 06/19/24 17:00 06/20/24 09:24 Insulin Aspart (*Bkc) 100 Units/Ml SUB-Q Not Given [facility] Protocol Insulin Aspart 1 - 2 units 06/19/24 21:00 06/19/24 20:38 Insulin Aspart (*Bkc) 100 Units/Ml SUB-Q 1 units HS TOM Administration Protocol Isosorbide Dinitrate 20 mg 06/19/24 19:50 06/20/24 09:23 Isosorbide Dinitrate 20 Mg Tablet PO 20 mg BID TOM Administration Metoprolol Succinate 25 mg 06/19/24 21:00 06/20/24 09:23 Metoprolol Succinate Ext Rel 25 Mg Tabcr PO 25 mg Q12H TOM Administration Pantoprazole Sodium 40 mg 06/20/24 09:00 06/20/24 09:23 Pantoprazole 40 Mg Tablet PO 40 mg DAILY TOM Administration Senna/Docusate Sodium 2 tab 06/19/24 18:32 Senna/Docusate Sodium Tablet PO DAILY PRN constipation Tamsulosin HCl 0.4 mg 06/20/24 09:00 06/20/24 09:24 Tamsulosin Hcl 0.4 Mg Capsule PO 0.4 mg DAILY TOM Administration Ticagrelor 90 mg 06/19/24 21:00 06/20/24 09:23 Ticagrelor 90 Mg Tablet PO 90 mg Q12H TOM Administration Vitamin D 2,000 units 06/19/24 21:00 06/19/24 20:37 Cholecalciferol 1,000 Units Tablet PO 2,000 units HS TOM Administration Radiology Results: ITS Impressions Chest X-Ray 06/19/24 11:26 IMPRESSION: Cardiomegaly with cardiac decompensation and pulmonary edema. Bilateral basal atelectasis versus pneumonia with pleural effusion. Bilateral pneumonitis is also highly suggestive. Chest CTA 06/19/24 13:21 IMPRESSION: 1. No pulmonary embolism. 2. Bilateral basilar atelectasis versus pneumonia with bilateral large pleural effusion. 3. Trace of pericardial effusion with cardiomegaly. 4. Bilateral interstitial thickening which may indicate edema versus pneumonitis. Labs Labs: Laboratory Results - last 24 hr 06/19/24 06/19/24 06/19/24 10:54 10:54 10:55 WBC 12.2 H RBC 4.87 Hgb 14.1 Hct 44.2 MCV 90.8 MCH 29.0 MCHC 31.9 L RDW 14.5 Plt Count 311 MPV 10.6 H Immature Gran % (Auto) 0.8 H Neut % (Auto) 83.1 H Lymph % (Auto) 6.3 L [place] % (Auto) 8.3 Eos % (Auto) 0.8 Baso % (Auto) 0.7 Lymph # (Auto) 0.77 L [place] # (Auto) 1.0 H Eos # (Auto) 0.1 Baso # (Auto) 0.1 Abs Immat Gran (auto) 0.10 H Absolute Neuts (auto) 10.2 H Absolute Nucleated RBC 0.000 Nucleated RBC % 0.0 PT 14.3 INR 1.1 APTT 26.9 Cancelled Puncture Site ABG pH ABG pCO2 ABG pO2 ABG PO2/FiO2 Ratio ABG HCO3 ABG O2 Saturation ABG O2 Content ABG Base Excess A-a Gradient Oxyhemoglobin Total Hemoglobin O2 Delivery Device O2 Liters/Min FiO2 Sodium 137 Potassium 4.3 Chloride 97 L Carbon Dioxide 30 Anion Gap 10 BUN 43 H D Creatinine 1.95 H Estim Creat Clear Calc 22 Estimated GFR 33 L Glucose 171 H POC Capillary Glucose Lactic Acid Calcium 9.0 Magnesium 1.9 Total Bilirubin 1.4 H AST 20 ALT 18 Alkaline Phosphatase 83 Troponin I 0.235 H* C-Reactive Protein 3.1 H NT-Pro-B Natriuret Pep Total Protein Albumin Procalcitonin TSH (Reflex) Urine Color Urine Appearance Urine pH Ur Specific [place] Urine Protein Urine Glucose (UA) Urine Ketones Ur Blood (Man) Urine Nitrate Urine Bilirubin Urine Urobilinogen Leukocyte Esterase Rfl Urine RBC Urine WBC Ur Squamous Epith Cells Urine Bacteria Urine Casts Influenza A (RT-PCR) Influenza B (RT-PCR) RSV (RT-PCR) SARS-CoV-2 RNA (RT-PCR) 06/19/24 06/19/24 06/19/24 10:55 11:51 11:58 WBC RBC Hgb Hct MCV MCH MCHC RDW Plt Count MPV Immature Gran % (Auto) Neut % (Auto) Lymph % (Auto) [place] % (Auto) Eos % (Auto) Baso % (Auto) Lymph # (Auto) [place] # (Auto) Eos # (Auto) Baso # (Auto) Abs Immat Gran (auto) Absolute Neuts (auto) Absolute Nucleated RBC Nucleated RBC % PT INR APTT Puncture Site Left radial ABG pH 7.484 H ABG pCO2 36.1 ABG pO2 70.6 L ABG PO2/FiO2 Ratio 1.96 ABG HCO3 26.5 H ABG O2 Saturation 95.4 ABG O2 Content 19.0 ABG Base Excess 3.3 A-a Gradient 144.2 Oxyhemoglobin 93.8 Total Hemoglobin 14.4 O2 Delivery Device Nasal cannula O2 Liters/Min 4.0 FiO2 36 Sodium Potassium Chloride Carbon Dioxide Anion Gap BUN Creatinine Estim Creat Clear Calc Estimated GFR Glucose POC Capillary Glucose Lactic Acid 1.7 Calcium Magnesium Total Bilirubin AST ALT Alkaline Phosphatase Troponin I Cancelled C-Reactive Protein NT-Pro-B Natriuret Pep > 67873 H Total Protein 8.0 Albumin 4.5 Procalcitonin TSH (Reflex) Urine Color Urine Appearance Urine pH Ur Specific [place] Urine Protein Urine Glucose (UA) Urine Ketones Ur Blood (Man) Urine Nitrate Urine Bilirubin Urine Urobilinogen Leukocyte Esterase Rfl Urine RBC Urine WBC Ur Squamous Epith Cells Urine Bacteria Urine Casts Influenza A (RT-PCR) Negative Influenza B (RT-PCR) Negative RSV (RT-PCR) Negative SARS-CoV-2 RNA (RT-PCR) Negative 06/19/24 06/19/24 06/19/24 12:00 16:51 19:58 WBC RBC Hgb Hct MCV MCH MCHC RDW Plt Count MPV Immature Gran % (Auto) Neut % (Auto) Lymph % (Auto) [place] % (Auto) Eos % (Auto) Baso % (Auto) Lymph # (Auto) [place] # (Auto) Eos # (Auto) Baso # (Auto) Abs Immat Gran (auto) Absolute Neuts (auto) Absolute Nucleated RBC Nucleated RBC % PT INR APTT Puncture Site ABG pH ABG pCO2 ABG pO2 ABG PO2/FiO2 Ratio ABG HCO3 ABG O2 Saturation ABG O2 Content ABG Base Excess A-a Gradient Oxyhemoglobin Total Hemoglobin O2 Delivery Device O2 Liters/Min FiO2 Sodium Potassium 4.3 Chloride Carbon Dioxide Anion Gap BUN Creatinine Estim Creat Clear Calc Estimated GFR Glucose POC Capillary Glucose Lactic Acid Calcium Magnesium 1.8 Total Bilirubin AST ALT Alkaline Phosphatase Troponin I 0.219 H* 0.197 H* C-Reactive Protein NT-Pro-B Natriuret Pep Total Protein Albumin Procalcitonin 0.1 TSH (Reflex) 2.870 Urine Color Yellow Urine Appearance Clear Urine pH 6.0 Ur Specific [place] 1.028 Urine Protein 3+ H Urine Glucose (UA) 3+ H Urine Ketones Trace H Ur Blood (Man) Negative Urine Nitrate Negative Urine Bilirubin Negative Urine Urobilinogen 0.2 Leukocyte Esterase Rfl Negative Urine RBC 0-2 Urine WBC 0-5 Ur Squamous Epith Cells None seen Urine Bacteria None seen Urine Casts 0-2 Influenza A (RT-PCR) Influenza B (RT-PCR) RSV (RT-PCR) SARS-CoV-2 RNA (RT-PCR) 06/19/24 06/20/24 06/20/24 20:36 04:06 07:44 WBC 10.9 H RBC 4.36 L Hgb 12.7 L Hct 39.4 L MCV 90.4 MCH 29.1 MCHC 32.2 RDW 14.6 H Plt Count 253 MPV 10.0 Immature Gran % (Auto) 0.6 H Neut % (Auto) 77.9 H Lymph % (Auto) 8.2 L [place] % (Auto) 10.7 H Eos % (Auto) 1.8 Baso % (Auto) 0.8 Lymph # (Auto) 0.89 L [place] # (Auto) 1.2 H Eos # (Auto) 0.2 Baso # (Auto) 0.1 Abs Immat Gran (auto) 0.07 H Absolute Neuts (auto) 8.5 H Absolute Nucleated RBC 0.000 Nucleated RBC % 0.0 PT INR APTT Puncture Site ABG pH ABG pCO2 ABG pO2 ABG PO2/FiO2 Ratio ABG HCO3 ABG O2 Saturation ABG O2 Content ABG Base Excess A-a Gradient Oxyhemoglobin Total Hemoglobin O2 Delivery Device O2 Liters/Min FiO2 Sodium 137 Potassium 4.0 Chloride 95 L Carbon Dioxide 33 H Anion Gap 9 BUN 48 H Creatinine 2.30 H Estim Creat Clear Calc 18 Estimated GFR 28 L Glucose 108 POC Capillary Glucose 229 H 119 H Lactic Acid Calcium 8.2 L Magnesium Total Bilirubin AST ALT Alkaline Phosphatase Troponin I C-Reactive Protein NT-Pro-B Natriuret Pep Total Protein Albumin Procalcitonin TSH (Reflex) Urine Color Urine Appearance Urine pH Ur Specific [place] Urine Protein Urine Glucose (UA) Urine Ketones Ur Blood (Man) Urine Nitrate Urine Bilirubin Urine Urobilinogen Leukocyte Esterase Rfl Urine RBC Urine WBC Ur Squamous Epith Cells Urine Bacteria Urine Casts Influenza A (RT-PCR) Influenza B (RT-PCR) RSV (RT-PCR) SARS-CoV-2 RNA (RT-PCR)
[2024-06-20 12:01] LABS: Glucose Point of Care 183 mg/dl (65-105)
[2024-06-20] MEDS: AZITHROMYCIN 500 MG/NS 250 ML 500 MG/250 ML BAG 250 MG IVPB (14:56)
[2024-06-20 15:25] LABS: Glucose Point of Care 129 mg/dl (65-105)
[2024-06-20] MEDS: ONDANSETRON INJ 4 MG/2 ML VIAL IV PUSH (16:00)
[2024-06-20] MEDS: ATORVASTATIN 40 MG TABLET PO (17:25)
[2024-06-20 19:55] LABS: Glucose Point of Care 174 mg/dl (65-105)
[2024-06-20] MEDS: FUROSEMIDE INJ 40 MG/4 ML VIAL IV PUSH (21:19)
[2024-06-20] MEDS: CHOLECALCIFEROL 1,000 UNITS TABLET 2000 UNITS PO (21:19)
[2024-06-20] MEDS: clonazePAM (*CRX) 0.5 MG TABLET PO (21:22)
[2024-06-21] VITALS (13 sets, daily range): BP systolic 145–165; BP diastolic 69–76; PULSE 84–97; RESP 18–20; TEMP 36.3–36.7; O2SAT 90–96
[2024-06-21 07:05] LABS: Anion Gap 10 mmol/L (4-12); Blood Urea Nitrogen 57 mg/dL (9-20); Carbon Dioxide 31 mmol/L (22-30); Chloride 96 mmol/L (98-107); Estimated CRCL calculation 18 ml/min; Estimated Glomerular Filt Rate 26; Glucose 103 mg/dL (65-110); Magnesium 2.1 mg/dL (1.6-2.3); Potassium 3.8 mmol/L (3.4-5.0); Sodium 137 mmol/L (137-145)
--- NOTE | 2024-06-21 07:58 | P.PNCA_ITS ---
Progress Note: A&P Assessment and Plan (1) Combined systolic and diastolic cardiac dysfunction: Code(s): I51.89 - Other ill-defined heart diseases Status: Acute Assessment and Plan: Acute on chronic. On Lasix 20 mg IV BID. Monitor UOP. Net balance even. Increase Lasix 40 mg IV BID. Restrict fluid intake 1.5 l/day. (2) Pneumonia: Code(s): J18.9 - Pneumonia, unspecified organism Status: Acute Assessment and Plan: On antibiotics as per hospitalist. (3) Chronic kidney disease, stage 4 (severe): Code(s): N18.4 - Chronic kidney disease, stage 4 (severe) Status: Chronic Assessment and Plan: Monitor with diuresis. (4) Coronary artery disease: Code(s): I25.10 - Atherosclerotic heart disease of [place] coronary artery without angina pectoris Status: Acute Assessment and Plan: On dual antiplatelets and continue that for additional 3 months given stents in LM and LCx. (5) Hyperlipidemia: Code(s): E78.5 - Hyperlipidemia, unspecified Status: Acute Assessment and Plan: On Atorvastatin. (6) Elevated troponin: Code(s): R79.89 - Other specified abnormal findings of blood chemistry Status: Acute Assessment and Plan: Moderate but flat elevation at 0.235. Doubt ACS as no chest pain. Probably due to CHF and pneumonia in setting of CKD. Subjective Date/time seen: 06/21/24 07:58 Interval history: Denies chest pain or sob. Exam Const: General: cooperative, healthy appearing and comfortable Orientation/consciousness: oriented to person, oriented to place and oriented to time Resp: Auscultation: no wheezes and diminished lung sounds Cardio: Rate: regular rate Rhythm: regular rhythm Heart sounds: Murmur heart sound present (I/ systolic murmur RICS) Peripheral pulses: dorsalis pedis present Neuro: General: oriented to person, oriented to place and oriented to time Extrem: Right lower extremity: no edema Left lower extremity: no edema Objective Data Vital Signs Vital Signs: Vital Signs - 24 hr 06/20/24 08:00 06/20/24 08:00 06/20/24 09:23 Temperature Pulse Rate 96 100 Respiratory Rate Blood Pressure Pulse Oximetry 91 Oxygen Delivery Nasal Cannula Oxygen Flow Rate 4 06/20/24 10:00 06/20/24 12:00 06/20/24 12:00 Temperature 97.4 F L Pulse Rate 92 91 Respiratory Rate 18 Blood Pressure 128/79 Pulse Oximetry 98 94 Oxygen Delivery Nasal Cannula Oxygen Flow Rate 4 06/20/24 12:00 06/20/24 14:00 06/20/24 15:39 Temperature 97.4 F L Pulse Rate 90 97 92 Respiratory Rate 20 Blood Pressure 159/82 H Pulse Oximetry 96 Oxygen Delivery Oxygen Flow Rate 06/20/24 16:00 06/20/24 16:00 06/20/24 18:00 Temperature Pulse Rate 93 92 Respiratory Rate Blood Pressure Pulse Oximetry 94 Oxygen Delivery Nasal Cannula Oxygen Flow Rate 4 06/20/24 19:56 06/20/24 20:00 06/20/24 20:00 Temperature 97.8 F Pulse Rate 94 91 Respiratory Rate 20 Blood Pressure 147/75 H Pulse Oximetry 97 97 Oxygen Delivery Nasal Cannula Oxygen Flow Rate 4 06/20/24 20:05 06/20/24 21:20 06/20/24 22:00 Temperature Pulse Rate 98 87 Respiratory Rate Blood Pressure Pulse Oximetry 96 Oxygen Delivery Nasal Cannula Oxygen Flow Rate 3 06/20/24 23:56 06/21/24 00:00 06/21/24 00:00 Temperature 97.4 F L Pulse Rate 90 84 Respiratory Rate 20 Blood Pressure 144/78 H Pulse Oximetry 93 90 Oxygen Delivery Nasal Cannula Oxygen Flow Rate 3 06/21/24 02:00 06/21/24 04:00 06/21/24 04:00 Temperature 97.6 F Pulse Rate 88 87 Respiratory Rate 20 Blood Pressure 146/75 H Pulse Oximetry 94 90 Oxygen Delivery Nasal Cannula Oxygen Flow Rate 3 06/21/24 04:00 06/21/24 06:00 Temperature Pulse Rate 88 85 Respiratory Rate Blood Pressure Pulse Oximetry Oxygen Delivery Oxygen Flow Rate Intake/Output Intake/Output: Intake & Output 06/18/24 06/19/24 06/20/24 06/21/24 23:59 23:59 23:59 23:59 Intake Total 540.0 1020 150 Output Total 400 950 800 Balance 140.0 70 -650 Meds/Results Medications: Active Medications Generic Name Dose Route Start Last Admin Trade Name Freq PRN Reason Stop Dose Admin Acetaminophen 650 mg 06/19/24 14:15 Acetaminophen 325 Mg Tablet PO Q4H PRN Mild Pain (1-3) or Fever Albuterol 1.25 mg 06/19/24 18:43 06/20/24 02:05 Albuterol Sulfate Neb 2.5 Mg/3 Ml Inh INHALATION 1.25 mg Q4-6H PRN Administration shortness of breath or wheezing Aspirin 81 mg 06/20/24 09:00 06/20/24 09:23 Aspirin 81 Mg Enteric Tablet PO 81 mg DAILY [facility] Administration Atorvastatin Calcium 40 mg 06/19/24 18:45 06/20/24 17:25 Atorvastatin 40 Mg Tablet PO 40 mg QPM TOM Administration Clonazepam 0.5 mg 06/19/24 18:32 06/20/24 21:22 Clonazepam (*Crx) 0.5 Mg Tablet PO 0.5 mg Q12H PRN Administration anxiety Dextrose 12.5 gm 06/19/24 16:31 Dextrose 50% 25 Gm/50 Ml Syringe IV PUSH PRN PRN Hypoglycemia Protocol Empagliflozin 25 mg 06/20/24 09:00 06/20/24 09:23 Empagliflozin 25 Mg Tablet PO 25 mg QAM TOM Administration Fluticasone Propionate 1 spray 06/20/24 09:00 06/20/24 21:19 Fluticasone Propionate 0.05% Na Spr 16 Gm Btl (*Bkc) NASAL 1 spray Q12HR TOM Administration Furosemide 40 mg 06/20/24 21:00 06/20/24 21:19 Furosemide Inj 40 Mg/4 Ml Vial IV PUSH 40 mg Q12HR [facility]OM Administration Glipizide 5 mg 06/20/24 09:00 06/20/24 09:23 Glipizide 5 Mg Tablet PO 5 mg DAILY TOM Administration Glucagon 1 mg 06/19/24 16:31 Glucagon For Inj 1 Mg Vial IM PRN PRN Hypoglycemia Protocol Glucose 15 gm 06/19/24 16:31 Glucose Oral Gel 15 Gm Of Glucse In 37.5 Gm Tube PO PRN PRN Hypoglycemia Protocol Ceftriaxone Sodium 1 gm in 50 mls @ 100 mls/hr 06/19/24 14:00 06/20/24 16:03 Rocephin 1 Gm/Ns 50 Ml IVPB Infused Q24H [facility]OM Infusion Dextrose 1,000 mls @ 100 mls/hr 06/19/24 16:31 Dextrose 5% 1,000 Ml IVPB PRN PRN Hypoglycemia Protocol Doxycycline Hyclate 100 mg in 100 mls @ 100 mls/hr 06/21/24 09:00 Vibramycin 100 Mg/Ns 100 Ml IVPB Q12H [facility] Insulin Aspart 2 - 5 units 06/19/24 17:00 06/20/24 15:41 Insulin Aspart (*Bkc) 100 Units/Ml SUB-Q Not Given TIDWM [facility] Protocol Insulin Aspart 1 - 2 units 06/19/24 21:00 06/20/24 21:17 Insulin Aspart (*Bkc) 100 Units/Ml SUB-Q Not Given HS [facility] Protocol Isosorbide Dinitrate 20 mg 06/19/24 19:50 06/20/24 17:25 Isosorbide Dinitrate 20 Mg Tablet PO 20 mg BID [facility] Administration Metoprolol Succinate 25 mg 06/19/24 21:00 06/20/24 21:20 Metoprolol Succinate Ext Rel 25 Mg Tabcr PO 25 mg Q12H [facility] Administration Ondansetron HCl 4 mg 06/20/24 15:53 06/20/24 16:00 Ondansetron Inj 4 Mg/2 Ml Vial IV PUSH 4 mg Q6H PRN Administration Nausea And Vomiting Pantoprazole Sodium 40 mg 06/20/24 09:00 06/20/24 09:23 Pantoprazole 40 Mg Tablet PO 40 mg DAILY [facility] Administration Senna/Docusate Sodium 2 tab 06/19/24 18:32 Senna/Docusate Sodium Tablet PO DAILY PRN constipation Tamsulosin HCl 0.4 mg 06/20/24 09:00 06/20/24 09:24 Tamsulosin Hcl 0.4 Mg Capsule PO 0.4 mg DAILY [facility] Administration Ticagrelor 90 mg 06/19/24 21:00 06/20/24 21:19 Ticagrelor 90 Mg Tablet PO 90 mg Q12H [facility] Administration Vitamin D 2,000 units 06/19/24 21:00 06/20/24 21:19 Cholecalciferol 1,000 Units Tablet PO 2,000 units HS [facility] Administration Radiology Results: ITS Impressions Chest X-Ray 06/19/24 11:26 IMPRESSION: Cardiomegaly with cardiac decompensation and pulmonary edema. Bilateral basal atelectasis versus pneumonia with pleural effusion. Bilateral pneumonitis is also highly suggestive. Chest CTA 06/19/24 13:21 IMPRESSION: 1. No pulmonary embolism. 2. Bilateral basilar atelectasis versus pneumonia with bilateral large pleural effusion. 3. Trace of pericardial effusion with cardiomegaly. 4. Bilateral interstitial thickening which may indicate edema versus pneumonitis. Labs Labs: Laboratory Results - last 24 hr 06/20/24 06/20/24 06/20/24 07:44 11:51 15:05 Sodium Potassium Chloride Carbon Dioxide Anion Gap BUN Creatinine Estim Creat Clear Calc Estimated GFR Glucose POC Capillary Glucose 119 H 183 H 129 H Calcium Magnesium 06/20/24 06/21/24 19:41 06:43 Sodium 137 Potassium 3.8 Chloride 96 L Carbon Dioxide 31 H Anion Gap 10 BUN 57 H Creatinine 2.43 H Estim Creat Clear Calc 18 Estimated GFR 26 L Glucose 103 POC Capillary Glucose 174 H Calcium 8.0 L Magnesium 2.1
[2024-06-21 08:00] LABS: Glucose Point of Care 126 mg/dl (65-105)
--- NOTE | 2024-06-21 08:41 | P.PNIM_ITS ---
Progress Note: A&P Assessment and Plan (1) Acute on chronic combined systolic and diastolic heart failure: Code(s): I50.43 - Acute on chronic combined systolic (congestive) and diastolic (congestive) heart failure Status: Acute (2) Acute and chronic respiratory failure with hypoxia: Code(s): J96.21 - Acute and chronic respiratory failure with hypoxia Status: Acute (3) Elevated troponin: Code(s): R79.89 - Other specified abnormal findings of blood chemistry Status: Acute (4) Aortic stenosis: Code(s): I35.0 - Nonrheumatic aortic (valve) stenosis Status: Acute (5) Bilateral pleural effusion: Code(s): J90 - Pleural effusion, not elsewhere classified Status: Acute (6) Chronic obstructive pulmonary disease: Code(s): J44.9 - Chronic obstructive pulmonary disease, unspecified Status: Acute (7) Hypertension: Qualifiers: Hypertension type: secondary to other renal disorders Qualified Code(s): I15.1 - Hypertension secondary to other renal disorders Code(s): I10 - Essential (primary) hypertension Status: Chronic (8) Type 2 diabetes mellitus: Qualifiers: Chronic kidney disease stage: stage 4 (severe) Diabetes mellitus complication detail: with chronic kidney disease Diabetes mellitus complication status: with kidney complications Diabetes mellitus fpc insulin use: without long term care phlebotomist use Qualified Code(s): E11.22 - Type 2 diabetes mellitus with diabetic chronic kidney disease; N18.4 - Chronic kidney disease, stage 4 (severe) Code(s): E11.9 - Type 2 diabetes mellitus without complications Status: Chronic (9) Chronic kidney disease, stage 4 (severe): Code(s): N18.4 - Chronic kidney disease, stage 4 (severe) Status: Chronic (10) CHF exacerbation: Qualifiers: Heart failure type: systolic Qualified Code(s): I50.23 - Acute on chronic systolic (congestive) heart failure Code(s): I50.9 - Heart failure, unspecified Status: Acute Plan 79 years old gentleman with history of CAD, combined CHF, GERD, type 2 diabetes, PVD, COPD, chronic respiratory failure with O2 home therapy, BPH, brought to ED by EMS because of shortness breath. Patient also has Raynaud's and nonproductive cough. Patient was found have hypoxemia in the ED,SpO2 in the mid 90s on 5 L. Heart rate has been in the low 100s to 120s an EKG shows a sinus tachycardia with ST T-wave abnormalities in the lateral leads. Labs were significant for a troponin of 0.235, proBNP greater than 30,000, BUN 43, creatinine 1.95, WBC count 12.2. He tested negative for influenza, COVID, and RSV. chest CTA was negative for pulmonary embolism but did show bibasilar atelectasis versus pneumonia, large bilateral pleural effusions, and trace pericardial effusion as well as bilateral interstitial thickening which may indicate edema versus pneumonitis Acute on chronic combined heart failure Shortness breath, worse with exertion, elevated BMP Chest CT shows large bilateral pleural effusions Continue IV Lasix Consult pari mutuel clerk for evaluation treatment History of CAD Denies chest pain Continue aspirin and Brilinta p.o. Further assessment management per pari mutuel clerk COPD Possible COPD exacerbation due to pneumonia Patient received azithromycin ceftriaxone in the ED Continue the treatment Continue DuoNeb and a boot nebulizer. Start O2 therapy p.r.n. to keep pulse ox above 94 Continue methylprednisone IV Acute on chronic respiratory failure Possible resulting from CHF, COPD, pleural effusion Patient is on 4 oxygen Follow-up ABG Pneumonia and pleural effusion CT showed Bilateral basilar atelectasis versus pneumonia with bilateral large pleural effusion. Consult pulmonology for evaluation treatment Type 2 diabetes Initiate sliding scale insulin, Accu-Cheks, and hypoglycemic protocol. CKD stage 4 BUN creatinine elevated, but on the baseline Avoid nephrotoxic medication Follow-up BMP Follow-up urinalysis Essential hypertension Blood pressure stable Subjective Date/time seen: 06/21/24 08:41 Interval history: I saw exam patient today. Patient feels better today, dyspnea is improving. Patient still has general weakness. Patient is afebrile, blood pressure stable, pulse ox 95 on 3 L oxygen Exam Narrative: GENERAL: Pleasant, in no acute distress. Well-nourished. - EYES: EOMI. Anicteric. - HENT: Moist mucous membranes. - LUNGS: Coarse breath sound bilateral base, no wheezing, rhonchi, or rales. - CARDIOVASCULAR: Regular rate and rhyth m. No murmur. No JVD. - ABDOMEN: Soft, non-tender and non-dist ended. No palpable masses. - EXTREMITIES: No edema. Peripheral puls es 2+. Non-tender. - NEUROLOGIC: No focal neurological defi cits. CN II-XII grossly intact. - PSYCHIATRIC: Awake, Alert and oriented x 3. Appropriate mood and affect. - SKIN: No rashes or lesions. Warm. - LYMPH: No cervical lymphadenopathy. Objective Data Vital Signs Vital Signs: Vital Signs - 24 hr 06/20/24 09:23 06/20/24 10:00 06/20/24 12:00 Temperature 97.4 F L Pulse Rate 100 92 91 Respiratory Rate 18 Blood Pressure 128/79 Pulse Oximetry 98 Oxygen Delivery Oxygen Flow Rate 06/20/24 12:00 06/20/24 12:00 06/20/24 14:00 Temperature Pulse Rate 90 97 Respiratory Rate Blood Pressure Pulse Oximetry 94 Oxygen Delivery Nasal Cannula Oxygen Flow Rate 4 06/20/24 15:39 06/20/24 16:00 06/20/24 16:00 Temperature 97.4 F L Pulse Rate 92 93 Respiratory Rate 20 Blood Pressure 159/82 H Pulse Oximetry 96 94 Oxygen Delivery Nasal Cannula Oxygen Flow Rate 4 06/20/24 18:00 06/20/24 19:56 06/20/24 20:00 Temperature 97.8 F Pulse Rate 92 94 Respiratory Rate 20 Blood Pressure 147/75 H Pulse Oximetry 97 97 Oxygen Delivery Nasal Cannula Oxygen Flow Rate 4 06/20/24 20:00 06/20/24 20:05 06/20/24 21:20 Temperature Pulse Rate 91 98 Respiratory Rate Blood Pressure Pulse Oximetry 96 Oxygen Delivery Nasal Cannula Oxygen Flow Rate 3 06/20/24 22:00 06/20/24 23:56 06/21/24 00:00 Temperature 97.4 F L Pulse Rate 87 90 Respiratory Rate 20 Blood Pressure 144/78 H Pulse Oximetry 93 90 Oxygen Delivery Nasal Cannula Oxygen Flow Rate 3 06/21/24 00:00 06/21/24 02:00 06/21/24 04:00 Temperature 97.6 F Pulse Rate 84 88 87 Respiratory Rate 20 Blood Pressure 146/75 H Pulse Oximetry 94 Oxygen Delivery Oxygen Flow Rate 06/21/24 04:00 06/21/24 04:00 06/21/24 06:00 Temperature Pulse Rate 88 85 Respiratory Rate Blood Pressure Pulse Oximetry 90 Oxygen Delivery Nasal Cannula Oxygen Flow Rate 3 06/21/24 07:59 Temperature 97.5 F L Pulse Rate 86 Respiratory Rate 20 Blood Pressure 147/69 H Pulse Oximetry 95 Oxygen Delivery Oxygen Flow Rate Intake/Output Intake/Output: Intake & Output 06/18/24 06/19/24 06/20/24 06/21/24 23:59 23:59 23:59 23:59 Intake Total 540.0 1020 630 Output Total 400 950 800 Balance 140.0 70 -170 Meds/Results Medications: Active Medications Generic Name Dose Route Start Last Admin Trade Name Freq PRN Reason Stop Dose Admin Acetaminophen 650 mg 06/19/24 14:15 Acetaminophen 325 Mg Tablet PO Q4H PRN Mild Pain (1-3) or Fever Albuterol 1.25 mg 06/19/24 18:43 06/20/24 02:05 Albuterol Sulfate Neb 2.5 Mg/3 Ml Inh INHALATION 1.25 mg Q4-6H PRN Administration shortness of breath or wheezing Aspirin 81 mg 06/20/24 09:00 06/20/24 09:23 Aspirin 81 Mg Enteric Tablet PO 81 mg DAILY [facility] Administration Atorvastatin Calcium 40 mg 06/19/24 18:45 06/20/24 17:25 Atorvastatin 40 Mg Tablet PO 40 mg QPM TOM Administration Clonazepam 0.5 mg 06/19/24 18:32 06/20/24 21:22 Clonazepam (*Crx) 0.5 Mg Tablet PO 0.5 mg Q12H PRN Administration anxiety Dextrose 12.5 gm 06/19/24 16:31 Dextrose 50% 25 Gm/50 Ml Syringe IV PUSH PRN PRN Hypoglycemia Protocol Empagliflozin 25 mg 06/20/24 09:00 06/20/24 09:23 Empagliflozin 25 Mg Tablet PO 25 mg QAM TOM Administration Fluticasone Propionate 1 spray 06/20/24 09:00 06/20/24 21:19 Fluticasone Propionate 0.05% Na Spr 16 Gm Btl (*Bkc) NASAL 1 spray Q12HR [facility] Administration Furosemide 40 mg 06/20/24 21:00 06/20/24 21:19 Furosemide Inj 40 Mg/4 Ml Vial IV PUSH 40 mg Q12HR [facility] Administration Glipizide 5 mg 06/20/24 09:00 06/20/24 09:23 Glipizide 5 Mg Tablet PO 5 mg DAILY [facility] Administration Glucagon 1 mg 06/19/24 16:31 Glucagon For Inj 1 Mg Vial IM PRN PRN Hypoglycemia Protocol Glucose 15 gm 06/19/24 16:31 Glucose Oral Gel 15 Gm Of Glucse In 37.5 Gm Tube PO PRN PRN Hypoglycemia Protocol Ceftriaxone Sodium 1 gm in 50 mls @ 100 mls/hr 06/19/24 14:00 06/20/24 16:03 Rocephin 1 Gm/Ns 50 Ml IVPB Infused Q24H [facility] Infusion Dextrose 1,000 mls @ 100 mls/hr 06/19/24 16:31 Dextrose 5% 1,000 Ml IVPB PRN PRN Hypoglycemia Protocol Doxycycline Hyclate 100 mg in 100 mls @ 100 mls/hr 06/21/24 09:00 Vibramycin 100 Mg/Ns 100 Ml IVPB Q12H [facility] Insulin Aspart 2 - 5 units 06/19/24 17:00 06/20/24 15:41 Insulin Aspart (*Bkc) 100 Units/Ml SUB-Q Not Given TIDWM [facility] Protocol Insulin Aspart 1 - 2 units 06/19/24 21:00 06/20/24 21:17 Insulin Aspart (*Bkc) 100 Units/Ml SUB-Q Not Given HS [facility] Protocol Isosorbide Dinitrate 20 mg 06/19/24 19:50 06/20/24 17:25 Isosorbide Dinitrate 20 Mg Tablet PO 20 mg BID [facility] Administration Metoprolol Succinate 25 mg 06/19/24 21:00 06/20/24 21:20 Metoprolol Succinate Ext Rel 25 Mg Tabcr PO 25 mg Q12H [facility] Administration Ondansetron HCl 4 mg 06/20/24 15:53 06/20/24 16:00 Ondansetron Inj 4 Mg/2 Ml Vial IV PUSH 4 mg Q6H PRN Administration Nausea And Vomiting Pantoprazole Sodium 40 mg 06/20/24 09:00 06/20/24 09:23 Pantoprazole 40 Mg Tablet PO 40 mg DAILY [facility] Administration Senna/Docusate Sodium 2 tab 06/19/24 18:32 Senna/Docusate Sodium Tablet PO DAILY PRN constipation Tamsulosin HCl 0.4 mg 06/20/24 09:00 06/20/24 09:24 Tamsulosin Hcl 0.4 Mg Capsule PO 0.4 mg DAILY [facility] Administration Ticagrelor 90 mg 06/19/24 21:00 06/20/24 21:19 Ticagrelor 90 Mg Tablet PO 90 mg Q12H [facility] Administration Vitamin D 2,000 units 06/19/24 21:00 06/20/24 21:19 Cholecalciferol 1,000 Units Tablet PO 2,000 units HS [facility] Administration Radiology Results: ITS Impressions Chest X-Ray 06/19/24 11:26 IMPRESSION: Cardiomegaly with cardiac decompensation and pulmonary edema. Bilateral basal atelectasis versus pneumonia with pleural effusion. Bilateral pneumonitis is also highly suggestive. Chest CTA 06/19/24 13:21 IMPRESSION: 1. No pulmonary embolism. 2. Bilateral basilar atelectasis versus pneumonia with bilateral large pleural effusion. 3. Trace of pericardial effusion with cardiomegaly. 4. Bilateral interstitial thickening which may indicate edema versus pneumonitis. Labs Labs: Laboratory Results - last 24 hr 06/20/24 06/20/24 06/20/24 11:51 15:05 19:41 Sodium Potassium Chloride Carbon Dioxide Anion Gap BUN Creatinine Estim Creat Clear Calc Estimated GFR Glucose POC Capillary Glucose 183 H 129 H 174 H Calcium Magnesium 06/21/24 06/21/24 06:43 07:58 Sodium 137 Potassium 3.8 Chloride 96 L Carbon Dioxide 31 H Anion Gap 10 BUN 57 H Creatinine 2.43 H Estim Creat Clear Calc 18 Estimated GFR 26 L Glucose 103 POC Capillary Glucose 126 H Calcium 8.0 L Magnesium 2.1
[2024-06-21 08:58] LABS: Basophils Absolute Auto 0.1 K/mm3 (0.0-0.1); Basophils Percent Auto 0.6 % (0.2-1.2); Eosinophils Absolute Auto 0.3 K/mm3 (0-0.3); Eosinophils Percent Auto 2.5 % (0-4.4); Hematocrit 37.8 % (42.0-52.0); Immature Granulocyte Percent A 0.9 % (0-0.5); Lymphocytes Absolute Auto 0.99 K/mm3 (0.9-3.2); Mean Corpuscular HGB Conc 31.7 g/dl (32-36); Mean Corpuscular Hemoglobin 29.2 pg (26-34); Monocytes Absolute Auto 0.9 K/mm3 (0.1-0.6); Monocytes Percent Auto 8.4 % (2.6-8.5); Neutrophils Absolute Auto 8.7 K/mm3 (1.3-6.7); Neutrophils Percent Auto 78.6 % (45.5-73.1); Platelet Count Result 273 k/mm3 (150-375); Red Blood Count 4.11 M/mm3 (4.6-6.20); Red Cell Distribution Width 14.5 % (11.5-14.5)
[2024-06-21] MEDS: ISOSORBIDE DINITRATE 20 MG TABLET PO ×2 (09:52→17:47)
[2024-06-21] MEDS: glipiZIDE 5 MG TABLET PO (09:52)
[2024-06-21] MEDS: ASPIRIN 81 MG ENTERIC TABLET PO (09:52)
[2024-06-21] MEDS: METOPROLOL SUCCINATE EXT REL 25 MG TABCR PO ×2 (09:52→20:35)
[2024-06-21] MEDS: EMPAGLIFLOZIN 25 MG TABLET PO (09:53)
[2024-06-21] MEDS: PANTOPRAZOLE 40 MG TABLET PO (09:53)
[2024-06-21] MEDS: FLUTICASONE PROPIONATE 0.05% NA SPR 16 GM BTL (*BKC) 1 SPRAY NASAL ×2 (09:53→20:35)
[2024-06-21] MEDS: TAMSULOSIN HCL 0.4 MG CAPSULE PO (09:53)
[2024-06-21] MEDS: TICAGRELOR 90 MG TABLET PO ×2 (09:53→20:35)
[2024-06-21] MEDS: FUROSEMIDE INJ 40 MG/4 ML VIAL IV PUSH ×2 (09:53→20:36)
[2024-06-21] MEDS: DOXYCYCLINE 100 MG/NS 100 ML 100 MG/100 ML BAG IVPB ×2 (09:54→20:37)
[2024-06-21 11:58] LABS: Glucose Point of Care 216 mg/dl (65-105)
[2024-06-21] MEDS: INSULIN ASPART (*BKC) 100 UNITS/ML SUB-Q ×2 (12:44→17:50)
[2024-06-21] MEDS: ATORVASTATIN 40 MG TABLET PO (17:47)
[2024-06-21 18:00] LABS: Glucose Point of Care 244 mg/dl (65-105)
[2024-06-21] MEDS: clonazePAM (*CRX) 0.5 MG TABLET PO (20:35)
[2024-06-21] MEDS: CHOLECALCIFEROL 1,000 UNITS TABLET 2000 UNITS PO (20:35)
[2024-06-22] VITALS (13 sets, daily range): BP systolic 153–168; BP diastolic 66–81; PULSE 75–95; RESP 16–20; TEMP 36.2–36.8; O2SAT 91–95
[2024-06-22 00:06] LABS: Glucose Point of Care 171 mg/dl (65-105)
[2024-06-22 05:07] LABS: Basophils Absolute Auto 0.1 K/mm3 (0.0-0.1); Basophils Percent Auto 0.8 % (0.2-1.2); Eosinophils Absolute Auto 0.3 K/mm3 (0-0.3); Eosinophils Percent Auto 2.5 % (0-4.4); Hematocrit 39.9 % (42.0-52.0); Hemoglobin 12.6 g/dL (14.0-18.0); Immature Granulocyte Absolute 0.14 K/mm3 (0.00-0.031); Immature Granulocyte Percent A 1.1 % (0-0.5); Lymphocytes Absolute Auto 0.66 K/mm3 (0.9-3.2); Mean Corpuscular HGB Conc 31.6 g/dl (32-36); Mean Corpuscular Hemoglobin 28.6 pg (26-34); Mean Corpuscular Volume 90.5 fl (80-100); Mean Platelet Volume 10.6 fl (7.4-10.4); Monocytes Absolute Auto 1.1 K/mm3 (0.1-0.6); Monocytes Percent Auto 8.4 % (2.6-8.5); Neutrophils Absolute Auto 10.8 K/mm3 (1.3-6.7); Neutrophils Percent Auto 82.2 % (45.5-73.1); Platelet Count Result 302 k/mm3 (150-375); Red Blood Count 4.41 M/mm3 (4.6-6.20); Red Cell Distribution Width 14.1 % (11.5-14.5); White Blood Count 13.1 K/mm3 (4.5-10.0)
[2024-06-22 05:16] LABS: Anion Gap 9 mmol/L (4-12); Blood Urea Nitrogen 59 mg/dL (9-20); Calcium 8.5 mg/dL (8.4-10.2); Carbon Dioxide 35 mmol/L (22-30); Chloride 94 mmol/L (98-107); Estimated CRCL calculation 18 ml/min; Estimated Glomerular Filt Rate 27; Glucose 163 mg/dL (65-110); Magnesium 2.1 mg/dL (1.6-2.3); Potassium 3.9 mmol/L (3.4-5.0); Sodium 138 mmol/L (137-145)
[2024-06-22 07:47] LABS: Glucose Point of Care 167 mg/dl (65-105)
--- NOTE | 2024-06-22 07:58 | PM.PNCARD ---
Progress Note: A&P Assessment and Plan (1) Combined systolic and diastolic cardiac dysfunction: Code(s): I51.89 - Other ill-defined heart diseases Status: Acute Assessment and Plan: Acute on chronic. On Lasix 40 mg IV BID. Monitor UOP. Net balance even. Restrict fluid intake 1.5 l/day. Obtain CXR today to reassess fluid level. (2) Pneumonia: Code(s): J18.9 - Pneumonia, unspecified organism Status: Acute Assessment and Plan: On antibiotics as per hospitalist. (3) Chronic kidney disease, stage 4 (severe): Code(s): N18.4 - Chronic kidney disease, stage 4 (severe) Status: Chronic Assessment and Plan: Monitor with diuresis. (4) Coronary artery disease: Code(s): I25.10 - Atherosclerotic heart disease of [place] coronary artery without angina pectoris Status: Acute Assessment and Plan: On dual antiplatelets and continue that for additional 3 months given stents in LM and LCx. (5) Hyperlipidemia: Code(s): E78.5 - Hyperlipidemia, unspecified Status: Acute Assessment and Plan: On Atorvastatin. (6) Elevated troponin: Code(s): R79.89 - Other specified abnormal findings of blood chemistry Status: Acute Assessment and Plan: Moderate but flat elevation at 0.235. Doubt ACS as no chest pain. Probably due to CHF and pneumonia in setting of CKD. Subjective Date/time seen: 06/22/24 07:58 Interval history: Denies chest pain. Has mild sob. Exam Const: General: cooperative, healthy appearing and comfortable Orientation/consciousness: oriented to person, oriented to place and oriented to time Resp: Auscultation: no wheezes and diminished lung sounds Cardio: Rate: regular rate Rhythm: regular rhythm Heart sounds: Murmur heart sound present (I/ systolic murmur RICS) Peripheral pulses: dorsalis pedis present Neuro: General: oriented to person, oriented to place and oriented to time Extrem: Right lower extremity: no edema Left lower extremity: no edema Objective Data Vital Signs Vital Signs: Vital Signs - 24 hr 06/21/24 07:59 06/21/24 08:00 06/21/24 08:00 Temperature 97.5 F L Pulse Rate 86 91 Respiratory Rate 20 Blood Pressure 147/69 H Pulse Oximetry 95 95 Oxygen Delivery Nasal Cannula Oxygen Flow Rate 3 06/21/24 09:52 06/21/24 10:00 06/21/24 11:51 Temperature 97.9 F Pulse Rate 84 86 86 Respiratory Rate 20 Blood Pressure 145/74 H Pulse Oximetry 96 Oxygen Delivery Oxygen Flow Rate 06/21/24 12:00 06/21/24 12:00 06/21/24 15:28 Temperature 98.1 F Pulse Rate 95 95 Respiratory Rate 20 Blood Pressure 162/76 H Pulse Oximetry 96 92 Oxygen Delivery Nasal Cannula Oxygen Flow Rate 3 06/21/24 20:00 06/21/24 20:00 06/21/24 20:35 Temperature 97.4 F L Pulse Rate 97 93 Respiratory Rate 18 Blood Pressure 165/74 H Pulse Oximetry 94 95 Oxygen Delivery Nasal Cannula Oxygen Flow Rate 3 06/22/24 00:00 06/22/24 04:00 06/22/24 07:34 Temperature 98 F 97.4 F L 97.2 F L Pulse Rate 94 85 85 Respiratory Rate 18 16 17 Blood Pressure 154/75 H 168/80 H 154/81 H Pulse Oximetry 95 92 95 Oxygen Delivery Oxygen Flow Rate 06/22/24 07:46 Temperature Pulse Rate 85 Respiratory Rate 17 Blood Pressure Pulse Oximetry 95 Oxygen Delivery Nasal Cannula Oxygen Flow Rate 2 Intake/Output Intake/Output: Intake & Output 06/19/24 06/20/24 06/21/24 06/22/24 23:59 23:59 23:59 23:59 Intake Total 540.0 1020 1310 300 Output Total 400 899 627 0875 Balance 140.0 70 510 -750 Meds/Results Medications: Active Medications Generic Name Dose Route Start Last Admin Trade Name Darenq PRN Reason Stop Dose Admin Acetaminophen 650 mg 06/19/24 14:15 Acetaminophen 325 Mg Tablet PO Q4H PRN Mild Pain (1-3) or Fever Albuterol 1.25 mg 06/19/24 18:43 06/20/24 02:05 Albuterol Sulfate Neb 2.5 Mg/3 Ml Inh INHALATION 1.25 mg Q4-6H PRN Administration shortness of breath or wheezing Amlodipine Besylate 5 mg 06/22/24 09:00 Amlodipine Besylate 5 Mg Tablet PO DAILY TOM Aspirin 81 mg 06/20/24 09:00 06/21/24 09:52 Aspirin 81 Mg Enteric Tablet PO 81 mg DAILY TOM Administration Atorvastatin Calcium 40 mg 06/19/24 18:45 06/21/24 17:47 Atorvastatin 40 Mg Tablet PO 40 mg QPM TOM Administration Clonazepam 0.5 mg 06/19/24 18:32 06/21/24 20:35 Clonazepam (*Crx) 0.5 Mg Tablet PO 0.5 mg Q12H PRN Administration anxiety Dextrose 12.5 gm 06/19/24 16:31 Dextrose 50% 25 Gm/50 Ml Syringe IV PUSH PRN PRN Hypoglycemia Protocol Empagliflozin 25 mg 06/20/24 09:00 06/21/24 09:53 Empagliflozin 25 Mg Tablet PO 25 mg QAM TOM Administration Fluticasone Propionate 1 spray 06/20/24 09:00 06/21/24 20:35 Fluticasone Propionate 0.05% Na Spr 16 Gm Btl (*Bkc) NASAL 1 spray Q12HR TOM Administration Furosemide 40 mg 06/20/24 21:00 06/21/24 20:36 Furosemide Inj 40 Mg/4 Ml Vial IV PUSH 40 mg Q12HR TOM Administration Glipizide 5 mg 06/20/24 09:00 06/21/24 09:52 Glipizide 5 Mg Tablet PO 5 mg DAILY TOM Administration Glucagon 1 mg 06/19/24 16:31 Glucagon For Inj 1 Mg Vial IM PRN PRN Hypoglycemia Protocol Glucose 15 gm 06/19/24 16:31 Glucose Oral Gel 15 Gm Of Glucse In 37.5 Gm Tube PO PRN PRN Hypoglycemia Protocol Ceftriaxone Sodium 1 gm in 50 mls @ 100 mls/hr 06/19/24 14:00 06/21/24 14:58 Rocephin 1 Gm/Ns 50 Ml IVPB 100 mls/hr Q24H TOM Administration Dextrose 1,000 mls @ 100 mls/hr 06/19/24 16:31 Dextrose 5% 1,000 Ml IVPB PRN PRN Hypoglycemia Protocol Doxycycline Hyclate 100 mg in 100 mls @ 100 mls/hr 06/21/24 09:00 06/21/24 21:37 Vibramycin 100 Mg/Ns 100 Ml IVPB Infused Q12H TOM Infusion Insulin Aspart 2 - 5 units 06/19/24 17:00 06/21/24 17:50 Insulin Aspart (*Bkc) 100 Units/Ml SUB-Q 2 units TIDWM TOM Administration Protocol Insulin Aspart 1 - 2 units 06/19/24 21:00 06/21/24 20:47 Insulin Aspart (*Bkc) 100 Units/Ml SUB-Q Not Given HS [facility] Protocol Isosorbide Dinitrate 20 mg 06/19/24 19:50 06/21/24 17:47 Isosorbide Dinitrate 20 Mg Tablet PO 20 mg BID TOM Administration Metoprolol Succinate 25 mg 06/19/24 21:00 06/21/24 20:35 Metoprolol Succinate Ext Rel 25 Mg Tabcr PO 25 mg Q12H TOM Administration Ondansetron HCl 4 mg 06/20/24 15:53 06/20/24 16:00 Ondansetron Inj 4 Mg/2 Ml Vial IV PUSH 4 mg Q6H PRN Administration Nausea And Vomiting Pantoprazole Sodium 40 mg 06/20/24 09:00 06/21/24 09:53 Pantoprazole 40 Mg Tablet PO 40 mg DAILY TOM Administration Senna/Docusate Sodium 2 tab 06/19/24 18:32 Senna/Docusate Sodium Tablet PO DAILY PRN constipation Tamsulosin HCl 0.4 mg 06/20/24 09:00 06/21/24 09:53 Tamsulosin Hcl 0.4 Mg Capsule PO 0.4 mg DAILY TOM Administration Ticagrelor 90 mg 06/19/24 21:00 06/21/24 20:35 Ticagrelor 90 Mg Tablet PO 90 mg Q12H TOM Administration Vitamin D 2,000 units 06/19/24 21:00 06/21/24 20:35 Cholecalciferol 1,000 Units Tablet PO 2,000 units HS TOM Administration Radiology Results: ITS Impressions Chest X-Ray 06/19/24 11:26 IMPRESSION: Cardiomegaly with cardiac decompensation and pulmonary edema. Bilateral basal atelectasis versus pneumonia with pleural effusion. Bilateral pneumonitis is also highly suggestive. Chest CTA 06/19/24 13:21 IMPRESSION: 1. No pulmonary embolism. 2. Bilateral basilar atelectasis versus pneumonia with bilateral large pleural effusion. 3. Trace of pericardial effusion with cardiomegaly. 4. Bilateral interstitial thickening which may indicate edema versus pneumonitis. Labs Labs: Laboratory Results - last 24 hr 06/21/24 06/21/24 06/21/24 06:43 07:58 11:56 WBC 11.0 H RBC 4.11 L Hgb 12.0 L Hct 37.8 L MCV 92.0 MCH 29.2 MCHC 31.7 L RDW 14.5 Plt Count 273 MPV 11.0 H Immature Gran % (Auto) 0.9 H Neut % (Auto) 78.6 H Lymph % (Auto) 9.0 L [place] % (Auto) 8.4 Eos % (Auto) 2.5 Baso % (Auto) 0.6 Lymph # (Auto) 0.99 [place] # (Auto) 0.9 H Eos # (Auto) 0.3 Baso # (Auto) 0.1 Abs Immat Gran (auto) 0.10 H Absolute Neuts (auto) 8.7 H Absolute Nucleated RBC 0.000 Nucleated RBC % 0.0 Sodium Potassium Chloride Carbon Dioxide Anion Gap BUN Creatinine Estim Creat Clear Calc Estimated GFR Glucose POC Capillary Glucose 126 H 216 H Calcium Magnesium 06/21/24 06/21/24 06/22/24 17:49 20:18 04:52 WBC 13.1 H RBC 4.41 L Hgb 12.6 L Hct 39.9 L MCV 90.5 MCH 28.6 MCHC 31.6 L RDW 14.1 Plt Count 302 MPV 10.6 H Immature Gran % (Auto) 1.1 H Neut % (Auto) 82.2 H Lymph % (Auto) 5.0 L [place] % (Auto) 8.4 Eos % (Auto) 2.5 Baso % (Auto) 0.8 Lymph # (Auto) 0.66 L [place] # (Auto) 1.1 H Eos # (Auto) 0.3 Baso # (Auto) 0.1 Abs Immat Gran (auto) 0.14 H Absolute Neuts (auto) 10.8 H Absolute Nucleated RBC 0.000 Nucleated RBC % 0.0 Sodium 138 Potassium 3.9 Chloride 94 L Carbon Dioxide 35 H Anion Gap 9 BUN 59 H Creatinine 2.35 H Estim Creat Clear Calc 18 Estimated GFR 27 L Glucose 163 H POC Capillary Glucose 244 H 171 H Calcium 8.5 Magnesium 2.1 06/22/24 07:37 WBC RBC Hgb Hct MCV MCH MCHC RDW Plt Count MPV Immature Gran % (Auto) Neut % (Auto) Lymph % (Auto) [place] % (Auto) Eos % (Auto) Baso % (Auto) Lymph # (Auto) [place] # (Auto) Eos # (Auto) Baso # (Auto) Abs Immat Gran (auto) Absolute Neuts (auto) Absolute Nucleated RBC Nucleated RBC % Sodium Potassium Chloride Carbon Dioxide Anion Gap BUN Creatinine Estim Creat Clear Calc Estimated GFR Glucose POC Capillary Glucose 167 H Calcium Magnesium
[2024-06-22] MEDS: FUROSEMIDE INJ 40 MG/4 ML VIAL IV PUSH ×2 (08:03→20:52)
[2024-06-22] MEDS: METOPROLOL SUCCINATE EXT REL 25 MG TABCR PO ×2 (08:03→20:51)
[2024-06-22] MEDS: DOXYCYCLINE 100 MG/NS 100 ML 100 MG/100 ML BAG IVPB (08:03)
[2024-06-22] MEDS: TICAGRELOR 90 MG TABLET PO ×2 (08:04→20:51)
[2024-06-22] MEDS: PANTOPRAZOLE 40 MG TABLET PO (08:04)
[2024-06-22] MEDS: glipiZIDE 5 MG TABLET PO (08:04)
[2024-06-22] MEDS: EMPAGLIFLOZIN 25 MG TABLET PO (08:04)
[2024-06-22] MEDS: ASPIRIN 81 MG ENTERIC TABLET PO (08:04)
[2024-06-22] MEDS: amLODIPine BESYLATE 5 MG TABLET PO (08:04)
[2024-06-22] MEDS: ISOSORBIDE DINITRATE 20 MG TABLET PO ×2 (08:04→18:13)
[2024-06-22] MEDS: TAMSULOSIN HCL 0.4 MG CAPSULE PO (08:04)
--- NOTE | 2024-06-22 09:34 | PM.IMPN ---
Progress Note: A&P Assessment and Plan (1) Acute on chronic combined systolic and diastolic heart failure: Code(s): I50.43 - Acute on chronic combined systolic (congestive) and diastolic (congestive) heart failure Status: Acute (2) Acute and chronic respiratory failure with hypoxia: Code(s): J96.21 - Acute and chronic respiratory failure with hypoxia Status: Acute (3) Elevated troponin: Code(s): R79.89 - Other specified abnormal findings of blood chemistry Status: Acute (4) Aortic stenosis: Code(s): I35.0 - Nonrheumatic aortic (valve) stenosis Status: Acute (5) Bilateral pleural effusion: Code(s): J90 - Pleural effusion, not elsewhere classified Status: Acute (6) Chronic obstructive pulmonary disease: Code(s): J44.9 - Chronic obstructive pulmonary disease, unspecified Status: Acute (7) Hypertension: Qualifiers: Hypertension type: secondary to other renal disorders Qualified Code(s): I15.1 - Hypertension secondary to other renal disorders Code(s): I10 - Essential (primary) hypertension Status: Chronic (8) Type 2 diabetes mellitus: Qualifiers: Chronic kidney disease stage: stage 4 (severe) Diabetes mellitus complication detail: with chronic kidney disease Diabetes mellitus complication status: with kidney complications Diabetes mellitus mcfp insulin use: without twister frame tender use Qualified Code(s): E11.22 - Type 2 diabetes mellitus with diabetic chronic kidney disease; N18.4 - Chronic kidney disease, stage 4 (severe) Code(s): E11.9 - Type 2 diabetes mellitus without complications Status: Chronic (9) Chronic kidney disease, stage 4 (severe): Code(s): N18.4 - Chronic kidney disease, stage 4 (severe) Status: Chronic (10) CHF exacerbation: Qualifiers: Heart failure type: systolic Qualified Code(s): I50.23 - Acute on chronic systolic (congestive) heart failure Code(s): I50.9 - Heart failure, unspecified Status: Acute Plan 79 years old gentleman with history of CAD, combined CHF, GERD, type 2 diabetes, PVD, COPD, chronic respiratory failure with O2 home therapy, BPH, brought to ED by EMS because of shortness breath. Patient also has Raynaud's and nonproductive cough. Patient was found have hypoxemia in the ED,SpO2 in the mid 90s on 5 L. Heart rate has been in the low 100s to 120s an EKG shows a sinus tachycardia with ST T-wave abnormalities in the lateral leads. Labs were significant for a troponin of 0.235, proBNP greater than 30,000, BUN 43, creatinine 1.95, WBC count 12.2. He tested negative for influenza, COVID, and RSV. chest CTA was negative for pulmonary embolism but did show bibasilar atelectasis versus pneumonia, large bilateral pleural effusions, and trace pericardial effusion as well as bilateral interstitial thickening which may indicate edema versus pneumonitis Acute on chronic combined heart failure Shortness breath, worse with exertion, elevated BMP Chest CT shows large bilateral pleural effusions Continue IV Lasix Consult tax accounting assistant for evaluation treatment History of CAD Denies chest pain Continue aspirin and Brilinta p.o. Further assessment management per tax accounting assistant COPD Possible COPD exacerbation due to pneumonia Patient received azithromycin ceftriaxone in the ED Continue the treatment Continue DuoNeb and a boot nebulizer. Start O2 therapy p.r.n. to keep pulse ox above 94 Continue methylprednisone IV Acute on chronic respiratory failure Possible resulting from CHF, COPD, pleural effusion Patient is on 4 oxygen Pneumonia and pleural effusion CT showed Bilateral basilar atelectasis versus pneumonia with bilateral large pleural effusion. Consult pulmonology for evaluation treatment repeat CXR 06/22 Continue ceftriaxone and doxycycline IV since 06/19, increase ceftriaxone to 2 g IV daily leukocytosis is worse Repeat chest x-ray two view today Type 2 diabetes Initiate sliding scale insulin, Accu-Cheks, and hypoglycemic protocol. CKD stage 4 BUN creatinine elevated, but on the baseline Avoid nephrotoxic medication Follow-up BMP Follow-up urinalysis: No pyuria Essential hypertension Blood pressure stable Subjective Date/time seen: 06/22/24 09:34 Interval history: I saw exam patient today. Patient feels better today, dyspnea is improving. Patient still has general weakness. Patient is afebrile, blood pressure stable, pulse ox 95 on 2 L oxygen Exam Narrative: GENERAL: Pleasant, in no acute distress. Well-nourished. - EYES: EOMI. Anicteric. - HENT: Moist mucous membranes. - LUNGS: Coarse breath sound bilateral base, no wheezing, rhonchi, or rales. - CARDIOVASCULAR: Regular rate and rhythm. No murmur. No JVD. - ABDOMEN: Soft, non-tender and non-distended. No palpable masses. - EXTREMITIES: No edema. Peripheral pulses 2+. Non-tender. - NEUROLOGIC: No focal neurological deficits. CN II-XII grossly intact. - PSYCHIATRIC: Awake, Alert and oriented x 3. Appropriate mood and affect. - SKIN: No rashes or lesions. Warm. - LYMPH: No cervical lymphadenopathy. Objective Data Vital Signs Vital Signs: Vital Signs - 24 hr 06/21/24 09:52 06/21/24 10:00 06/21/24 11:51 Temperature 97.9 F Pulse Rate 84 86 86 Respiratory Rate 20 Blood Pressure 145/74 H Pulse Oximetry 96 Oxygen Delivery Oxygen Flow Rate 06/21/24 12:00 06/21/24 12:00 06/21/24 15:28 Temperature 98.1 F Pulse Rate 95 95 Respiratory Rate 20 Blood Pressure 162/76 H Pulse Oximetry 96 92 Oxygen Delivery Nasal Cannula Oxygen Flow Rate 3 06/21/24 20:00 06/21/24 20:00 06/21/24 20:35 Temperature 97.4 F L Pulse Rate 97 93 Respiratory Rate 18 Blood Pressure 165/74 H Pulse Oximetry 94 95 Oxygen Delivery Nasal Cannula Oxygen Flow Rate 3 06/22/24 00:00 06/22/24 04:00 06/22/24 07:34 Temperature 98 F 97.4 F L 97.2 F L Pulse Rate 94 85 85 Respiratory Rate 18 16 17 Blood Pressure 154/75 H 168/80 H 154/81 H Pulse Oximetry 95 92 95 Oxygen Delivery Oxygen Flow Rate 06/22/24 07:46 06/22/24 08:03 06/22/24 09:23 Temperature Pulse Rate 85 92 Respiratory Rate 17 Blood Pressure Pulse Oximetry 95 94 Oxygen Delivery Nasal Cannula Nasal Cannula Oxygen Flow Rate 2 2 Intake/Output Intake/Output: Intake & Output 06/19/24 06/20/24 06/21/24 06/22/24 23:59 23:59 23:59 23:59 Intake Total 540.0 1020 1310 300 Output Total 400 416 507 0309 Balance 140.0 70 510 -750 Meds/Results Medications: Active Medications Generic Name Dose Route Start Last Admin Trade Name Freq PRN Reason Stop Dose Admin Acetaminophen 650 mg 06/19/24 14:15 Acetaminophen 325 Mg Tablet PO Q4H PRN Mild Pain (1-3) or Fever Albuterol 1.25 mg 06/19/24 18:43 06/20/24 02:05 Albuterol Sulfate Neb 2.5 Mg/3 Ml Inh INHALATION 1.25 mg Q4-6H PRN Administration shortness of breath or wheezing Amlodipine Besylate 5 mg 06/22/24 09:00 06/22/24 08:04 Amlodipine Besylate 5 Mg Tablet PO 5 mg DAILY TOM Administration Aspirin 81 mg 06/20/24 09:00 06/22/24 08:04 Aspirin 81 Mg Enteric Tablet PO 81 mg DAILY TOM Administration Atorvastatin Calcium 40 mg 06/19/24 18:45 06/21/24 17:47 Atorvastatin 40 Mg Tablet PO 40 mg QPM TOM Administration Clonazepam 0.5 mg 06/19/24 18:32 06/21/24 20:35 Clonazepam (*Crx) 0.5 Mg Tablet PO 0.5 mg Q12H PRN Administration anxiety Dextrose 12.5 gm 06/19/24 16:31 Dextrose 50% 25 Gm/50 Ml Syringe IV PUSH PRN PRN Hypoglycemia Protocol Empagliflozin 25 mg 06/20/24 09:00 06/22/24 08:04 Empagliflozin 25 Mg Tablet PO 25 mg QAM TOM Administration Fluticasone Propionate 1 spray 06/20/24 09:00 06/21/24 20:35 Fluticasone Propionate 0.05% Na Spr 16 Gm Btl (*Bkc) NASAL 1 spray Q12HR TOM Administration Furosemide 40 mg 06/20/24 21:00 06/22/24 08:03 Furosemide Inj 40 Mg/4 Ml Vial IV PUSH 40 mg Q12HR TOM Administration Glipizide 5 mg 06/20/24 09:00 06/22/24 08:04 Glipizide 5 Mg Tablet PO 5 mg DAILY TOM Administration Glucagon 1 mg 06/19/24 16:31 Glucagon For Inj 1 Mg Vial IM PRN PRN Hypoglycemia Protocol Glucose 15 gm 06/19/24 16:31 Glucose Oral Gel 15 Gm Of Glucse In 37.5 Gm Tube PO PRN PRN Hypoglycemia Protocol Ceftriaxone Sodium 1 gm in 50 mls @ 100 mls/hr 06/19/24 14:00 06/21/24 14:58 Rocephin 1 Gm/Ns 50 Ml IVPB 100 mls/hr Q24H TOM Administration Dextrose 1,000 mls @ 100 mls/hr 06/19/24 16:31 Dextrose 5% 1,000 Ml IVPB PRN PRN Hypoglycemia Protocol Doxycycline Hyclate 100 mg in 100 mls @ 100 mls/hr 06/21/24 09:00 06/22/24 08:03 Vibramycin 100 Mg/Ns 100 Ml IVPB 100 mls/hr Q12H TOM Administration Insulin Aspart 2 - 5 units 06/19/24 17:00 06/22/24 08:11 Insulin Aspart (*Bkc) 100 Units/Ml SUB-Q Not Given TIDWM TOM Protocol Insulin Aspart 1 - 2 units 06/19/24 21:00 06/21/24 20:47 Insulin Aspart (*Bkc) 100 Units/Ml SUB-Q Not Given HS [facility] Protocol Isosorbide Dinitrate 20 mg 06/19/24 19:50 06/22/24 08:04 Isosorbide Dinitrate 20 Mg Tablet PO 20 mg BID TOM Administration Metoprolol Succinate 25 mg 06/19/24 21:00 06/22/24 08:03 Metoprolol Succinate Ext Rel 25 Mg Tabcr PO 25 mg Q12H [facility] Administration Ondansetron HCl 4 mg 06/20/24 15:53 06/20/24 16:00 Ondansetron Inj 4 Mg/2 Ml Vial IV PUSH 4 mg Q6H PRN Administration Nausea And Vomiting Pantoprazole Sodium 40 mg 06/20/24 09:00 06/22/24 08:04 Pantoprazole 40 Mg Tablet PO 40 mg DAILY [facility] Administration Senna/Docusate Sodium 2 tab 06/19/24 18:32 Senna/Docusate Sodium Tablet PO DAILY PRN constipation Tamsulosin HCl 0.4 mg 06/20/24 09:00 06/22/24 08:04 Tamsulosin Hcl 0.4 Mg Capsule PO 0.4 mg DAILY [facility] Administration Ticagrelor 90 mg 06/19/24 21:00 06/22/24 08:04 Ticagrelor 90 Mg Tablet PO 90 mg Q12H [facility] Administration Vitamin D 2,000 units 06/19/24 21:00 06/21/24 20:35 Cholecalciferol 1,000 Units Tablet PO 2,000 units HS TOM Administration Radiology Results: ITS Impressions Chest CTA 06/19/24 13:21 IMPRESSION: 1. No pulmonary embolism. 2. Bilateral basilar atelectasis versus pneumonia with bilateral large pleural effusion. 3. Trace of pericardial effusion with cardiomegaly. 4. Bilateral interstitial thickening which may indicate edema versus pneumonitis. Chest X-Ray 06/22/24 09:25 IMPRESSION: 1. Likely congestive heart failure with cardiomegaly and mild pulmonary edema. 2. Small bilateral pleural effusions with associated basilar atelectasis versus pneumonia. Labs Labs: Laboratory Results - last 24 hr 06/21/24 06/21/24 06/21/24 11:56 17:49 20:18 WBC RBC Hgb Hct MCV MCH MCHC RDW Plt Count MPV Immature Gran % (Auto) Neut % (Auto) Lymph % (Auto) [place] % (Auto) Eos % (Auto) Baso % (Auto) Lymph # (Auto) [place] # (Auto) Eos # (Auto) Baso # (Auto) Abs Immat Gran (auto) Absolute Neuts (auto) Absolute Nucleated RBC Nucleated RBC % Sodium Potassium Chloride Carbon Dioxide Anion Gap BUN Creatinine Estim Creat Clear Calc Estimated GFR Glucose POC Capillary Glucose 216 H 244 H 171 H Calcium Magnesium 06/22/24 06/22/24 04:52 07:37 WBC 13.1 H RBC 4.41 L Hgb 12.6 L Hct 39.9 L MCV 90.5 MCH 28.6 MCHC 31.6 L RDW 14.1 Plt Count 302 MPV 10.6 H Immature Gran % (Auto) 1.1 H Neut % (Auto) 82.2 H Lymph % (Auto) 5.0 L [place] % (Auto) 8.4 Eos % (Auto) 2.5 Baso % (Auto) 0.8 Lymph # (Auto) 0.66 L [place] # (Auto) 1.1 H Eos # (Auto) 0.3 Baso # (Auto) 0.1 Abs Immat Gran (auto) 0.14 H Absolute Neuts (auto) 10.8 H Absolute Nucleated RBC 0.000 Nucleated RBC % 0.0 Sodium 138 Potassium 3.9 Chloride 94 L Carbon Dioxide 35 H Anion Gap 9 BUN 59 H Creatinine 2.35 H Estim Creat Clear Calc 18 Estimated GFR 27 L Glucose 163 H POC Capillary Glucose 167 H Calcium 8.5 Magnesium 2.1
[2024-06-22] MEDS: cefTRIAXone 2 GM/NS 100 ML 2 GM/100 ML BAG IVPB (10:57)
[2024-06-22] MEDS: FLUTICASONE PROPIONATE 0.05% NA SPR 16 GM BTL (*BKC) 1 SPRAY NASAL ×2 (10:58→21:26)
[2024-06-22] MEDS: ALBUTEROL SULFATE NEB 2.5 MG/3 ML INH 1.25 MG INHALATION (11:06)
[2024-06-22 11:34] LABS: Glucose Point of Care 245 mg/dl (65-105)
[2024-06-22 17:28] LABS: Glucose Point of Care 247 mg/dl (65-105)
[2024-06-22] MEDS: ATORVASTATIN 40 MG TABLET PO (17:51)
[2024-06-22] MEDS: INSULIN ASPART (*BKC) 100 UNITS/ML SUB-Q ×2 (17:52→21:26)
[2024-06-22] MEDS: CHOLECALCIFEROL 1,000 UNITS TABLET 2000 UNITS PO (20:51)
[2024-06-22] MEDS: DOXYCYCLINE HYCLATE 100 MG TABLET PO (20:52)
--- NOTE | 2024-06-22 21:38 | P.CONPL_ITS ---
Assessment and Plan Assessment and plan (1) COPD (chronic obstructive pulmonary disease): Qualifiers: COPD type: unspecified COPD Qualified Code(s): J44.9 - Chronic obstructive pulmonary disease, unspecified Code(s): J44.9 - Chronic obstructive pulmonary disease, unspecified Status: Acute Assessment and Plan: 10/13/2023 PFT : FEV1 at 71%, ratio 64%, no bronchodilator response, normal lung volumes and moderately decreased DLCO that remain moderately decreased when adjusted for alveolar volume. At his December 12 visit, Dr. Sandoval wanted to prescribed Stiolto, tiotropium-olodaterol however this was not on the patient's medication list at home, only rescue medication albuterol. Apparently he has not been on controller medication due to the cost. He would benefit by having controller medication at discharge however the problem will be getting something that will help him and that he can afford. (2) Acute dyspnea: Code(s): R06.00 - Dyspnea, unspecified Status: Acute Assessment and Plan: Worsening dyspnea with productive cough, yellow sputum. This may be an overlapping isses, cardiac dysfunction and COPD. WBC is mildly elevated. He is not having fevers. (3) Acute and chronic respiratory failure with hypoxia: Code(s): J96.21 - Acute and chronic respiratory failure with hypoxia Status: Acute Assessment and Plan: uses O2 at home, usually 2 L min, now back to this flow. (4) Bilateral pleural effusion: Code(s): J90 - Pleural effusion, not elsewhere classified Status: Acute Assessment and Plan: Overall picture more suggestive of worsening congestive heart failure with these bilateral effusions, less likely to be associated with pneumonia. (5) History of tobacco abuse: Code(s): Z87.891 - Personal history of nicotine dependence Status: Acute Assessment and Plan: 23 pack year history of tobacco use quit in 2022. He was exposed to secondhand smoke from his father and from his 1st from 1966 and 1983 and his 2nd from [id number]. Plan plan: He is having O2 weaned, Rocephin changed to oral antibiotics. He feels much better, still has some accessory muscle use. now on oral antibiotics, doxycycline and Amoxicillin. He needs controller medication at discharge, ideally triple inhaled therapy, ICS, LABA, LAMA. Would benefit from being up to date on vaccinations. His shortness of breath may be improved with thoracentesis, mainly for therapeutic purposes. Of course if he gets this, he should also have diagnostic testing. 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 He is not wheezing, so steroids are not going to help much. History of Present Illness History of Present Illness Consult date: 06/22/24 Requesting physician: Mike Kim MD Chief complaint: Pneumonia, Pneumonitis, Chf, pleural effusion Narrative: pt was seen Jun 22, 2024 at 22:50 Room 252 NEW: Silvano Duval is a 79 year old man with COPD, followed in our pulmonary clinic, last visit with Dr Sandoval was 12/12/2023; the patient tells me that he had pneumonia earlier in the fall, however this event may have been congestive heart failure or a COPD exacerbation in February. He has been on oxygen, initially at night but more recently has been using it during the day as well, 2 L/min. He developed a cough with yellowish sputum and increasing shortness of breath for several days before admission. No fevers. No sick contacts. His PCR was negative for COVID, influenza a and B, RSV. He is not up-to-date on vaccinations. He lives at home with his who is also been sick, however her symptoms are different, she has leg pain. He feels markedly improved since his admission here. On 2 L his saturation was in the mid 80s. On 5 L his saturation was in the mid 90s. He now has much less coughing, very little sputum production, he is on nasal cannula oxygen at 2 L, saturation 91-93%. He has a nebulizer at home. His proBNP has been elevated significantly for over a year, see values below. Beginning of this admission proBNP was greater than 30,000, and was also this high in February. He was hypoxemic in the emergency department, saturation was in the mid 90s on 5 L of oxygen, normally uses 2 L of oxygen at home. He had sinus tachycardia with nonspecific ST T-wave abnormalities laterally. He had slight increase in his troponin, 0.235. PCR negative for influenza A & B, SARS-CoV-2, and RSV. CTA - no PE; bibasilar atelectasis versus pneumonia, large bilateral pleural effusions, and trace pericardial effusion; interstitial thickening which may indicate edema versus pneumonitis February 19 through he was admitted here with acute shortness of breath, was diagnosed with acute respiratory distress, COPD, congestive Heart Failure; also has CKD, DM, HTN. DATA * June 19, 2024, PCR negative for influenza A, influenza B, RSV, SARS-CoV-2. * Jun 22; sodium 138, potassium 3.9, chloride 94, CO2 35, BUN 59, creatinine 2.35. * June 19, white blood cell count 12.2 with 83% neutrophils, today June 22 white blood cell count 13.1k * * 06/22/2024; CXR IMPRESSION: 1. Likely congestive heart failure with cardiomegaly and mild pulmonary edema. 2. Small bilateral pleural effusions with associated basilar atelectasis versus pneumonia. * 06/19/2024; chest CTA : IMPRESSION: 1. No pulmonary embolism. 2 . Bilateral basilar atelectasis versus pneumonia with bilateral large pleural effusion. 3. Trace of pericardial effusion with cardiomegaly. 4. Bilateral interstitial thickening which may indicate edema versus pneumonitis. * 11/08/2023, positive SAWYER, 1-80 titer, pattern is homogenous Prior visits 12/19/2023: Overnight oximetry on room air. Recording duration 8 hours and 25 minutes. Basal saturation 94%. High saturation 99%. Low saturation 77%. Time with saturation less than or equal to 88% was 25 minutes and 11 seconds. Oxygen desaturation index 37.6. I will prescribe 2 L nasal cannula and repeat overnight oximetry on 2 L nasal cannula. 12/13/2023:? This is a follow-up encounter from 10/03/2023 for COPD. On 10/03/2023, regarding his COPD, the patient had no activity limitations due to SOB but was limited by leg pain.? He had peripheral vascular disease.? I recommended the patient try a long-acting bronchodilator combination but he was unwilling and he was continuing his rescue albuterol p.r.n..? He was unwilling to receive influenza, COVID, RSV or pneumonia shots.? I have encouraged him to remain active.? I ordered PFTs, room air ABG, 6 minute walk an overnight oximetry.? The patient was 78 and does not qualify for low-dose CT scan. 10/13/2023:? 6 minute walk of 244 m with zenon saturation 96%. 10/13/2023:? PFTs demonstrated a small airways disease pattern with a normal FEV1 at 71%, ratio 64%, no bronchodilator response, normal lung volumes and moderately decreased DLCO that remain moderately decreased when adjusted for alveolar volume.? In comparison to previous pulmonary function testing on 07/27/2023 there had been a significant increase in the FVC, FEV1, total lung capacity, residual volume and diffusing capacity with no significant change in the functional residual capacity. 10/06/2023: ?Overnight oximetry with hypoxemia and I prescribed 2 L nasal cannula.? Our staff spoke with the patient and he refused oxygen at this time. 11/17/2023:? Cardiology outpatient follow-up note, he can walk 1 block then has dyspnea on exertion, quit smoking in June 2023, denies chest pain, shortness of breath, orthopnea, PND, edema it, dizziness, palpitations.? Room air sats 96%.? Weight 130 lb.? No medication changes.? Follow-up 6 months Today he tells me that He has had no hospitalizations or exacerbations since 10/03/2023. The patient states that he is clinically stable. Overall he feels his he is getting stronger. He has no limitations from a respiratory viewpoint in his activities of daily living. He can walk 1 block and then has to stop because of bilateral leg pain. He has minimal cough with phlegm 2 to 3 times a day and he does not know the color. He denies any hemoptysis. Patient takes short-acting beta agonist rescue 2 times a day and he says this helps him take deeper breaths. He is not smoking or exposed to secondhand smoke. He is unwilling to receive any vaccinations. His CAT score today is 16. He is willing to try inhaled medications and he is willing now to accept oxygen at night. 10/03/2023: This is a new pulmonary encounter for COPD.? 78-year-old with a history of CAD, PVD, HTN, CKD, COPD.? Patient referred from Dr. Odonnell for COPD. Most recent Office visit note on 07/11/2023.? He is doing much better.? Feels better than he did before his heart attack.? Room air saturations 97%.? Weight was 126 lb.? Pulmonary medications included albuterol 2 puffs t.i.d. p.r.n., Flonase nasal spray.? Had diminished breath sounds.? Assessment and plan emphysema: off his combination inhalers due to cost.? Not having any symptoms.? He has albuterol p.r.n..? Once everything settles down and I see him back soon may need to follow-up with updated pulmonary function test. 07/27/2023: Patient was previously seen by grounds maintenance supervisor, Dr. Plata, on 07/27/2023.? This was a post hospital visit and the patient was transferred from [facility] to [facility] with SOB and underlying CHF.? Thought to have underlying COPD, peripheral vascular disease hypertension, chronic renal failure and multi-vessel coronary artery disease.? Echo 06/12/2023 with LVEF 45 an RVSP 40.? Angiography 06/13/2023 with stents 2 left common iliac artery and external iliac artery.? LVEDP 35.? PCI to mid to proximal left circ with KENTRELL and PCI to left main at 80% obstruction.? Post-procedure hemorrhage in shock.? Intubated then extubated 06/16/2023.? Eventually discharged and was feeling better until last Tuesday when he felt short of breath.? He feels more short of breath laying flat this a.m..? No leg edema reported. Half pack for 40 years.? In March of 2023.? History of CVAs 2006, 2016 and 2018.? Medicines Lasix 40 a day, isosorbide-hydralazine 20-37.5 b.i.d., line and clipped in 5 a day, metoprolol XL 50 a day, pantoprazole 40 q.day, empagliflozin Saeid 10 q.day, aspirin 81 a day, atorvastatin 40 a day, tamsulosin 0.4 q.day, take a good ground later 90 b.i.d., Anoro 1 q.a.m. albuterol HFA p.r.n..? 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 PFTs 05/20/2023: FVC 1.92 L, 53% predicted.? FEV1 0.95 L, 37% predicted.? 07/27/2023: FVC 2.00 L, 59% predicted.? FEV1 1.02 L, 40% predicted.? Total lung capacity 3.07 L, 57% predicted.? Residual volume 1.37 L, 56% predicted.? DLCO of 8.4, 34% predicted.? Room air sat 95%. 07/27/2023 chest x-ray with small bilateral pleural effusions and pulmonary vascular congestion.? Assessment:? COPD, coronary artery disease status post stenting, peripheral vascular disease status post stenting, congestive heart failure appears to be in some CHF at this time.? CKD, hypertension. Plan:? Continue Anoro 1 q.a.m..? Follow-up 11/30/2023 with spirometry and chest x-ray. 08/24/2023: Outpatient cardiology office visit note. ?Weight 130 lb. ?He can walk 1/2 block then has WESTON.? He smokes a few cigarettes a day.? Room air saturations 98%.? Weight 130 lb.? Tobacco cessation counseling provided. Today tells me that He had no breathing issues in his life until he had his heart attack in June of 2023. He denied any SOB, phlegm or cough or WESTON. Since his heart attack 06/13/2023 the patient states that he has had continued pain and leg weakness which limits his activity. he tells me he has no respiratory limitations in his activities of daily living. 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 He says he does have to stop at half a block because of leg pain. Currently the patient is taking rescue albuterol and he takes this 2 to 3 times a day and he does state this this helps him take a deeper breath. The patient tells me he is not taking Anoro Ellipta since he left the hospital. He tells me it coughs 500 dollars. The patient smoked cigarettes at half a pack a day from age [age] for a total of 23 pack years. Patient was exposed to secondhand smoke from his father. He was post 6 excellent hand smoke from his 1st from [id number] and from his current from [id number]. Patient denies vaping or illicit drug use. 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 He denies sandblasting welding, asbestos were, professional painting. The patient's CAT score is 16. The patient is unwilling to receive the influenza, COVID, RSV or pneumonia shots. DATA: 10/13/2023: This is a pulmonary function test with pre and post-bronchodilator spirometry, plethysmography and diffusing capacity. The test was performed and results interpreted in accordance with the 2019 and 2005 ATS/ERS Task Force guidelines respectively using the Global Lung Function Initiative-2012 reference equations. Patient demonstrated good effort and cooperation. Reproducibility criteria were met. The quality of the pre bronchodilator spirometry maneuver was Grade A and post bronchodilator spirometry maneuver was Grade A. Findings: Spirometry: There is decreased maximal expiratory airflow at all lung volumes. The pre bronchodilator FVC is 2.78 L, 84% predicted. The pre bronchodilator FEV1 is 1.78 L, 71% predicted. The pre bronchodilator FEV1: FVC ratio 64%. The post bronchodilator FVC is 2.86 L, representing a 3% increase. The post bronchodilator FEV1 is 1.89 L, representing a 6% increase. The post bronchodilator FEV1: FVC ratio 66%. Plethysmography: The total lung capacity is 6.18 L, 103% predicted. The functional residual capacity is 2.27 L, 71% predicted. The residual volume is 2.25 L, 96% predicted. The slow vital capacity is 3.94 L. Diffusing capacity: The diffusing capacity unadjusted for hemoglobin and carboxyhemoglobin is 10.3, 46% predicted. The diffusing capacity adjusted for alveolar volume is 2.31, 58% predicted. Impression: The slow vital capacity is greater than forced vital capacity with a mildly concave expiratory tracing and a low FEV1: FVC ratio with a normal FEV1. This is suggestive of small airways disease. There is no significant improvement after inhaling a single dose of albuterol. The lung volumes are normal. The diffusing capacity unadjusted for hemoglobin and carboxyhemoglobin is moderately decreased and remains moderately decreased when adjusted for alveolar volume. In comparison to PFTs from 07/27/2023 the pre bronchodilator FVC has increased from 2.00 L to 2.78 L. The pre bronchodilator FEV1 has increased from 1.02 L to 1.78 L. the total lung capacity has increased from 3.07 L to 6.18 L. The residual volume has increased from 1.36 L to 2.25 L. The functional residual capacity is unchanged from 1.98 L to 2.27 L. The diffusing capacity has increased from 8.4 to 10.3. 10/13/2023: This is a 6 minute walk test. The test was performed and interpreted in accordance with the 2014 ERS/ATS task force guidelines. Findings: The patient's resting room air oxygen saturation measured by pulse oximetry was 98% and heart rate was 76 bpm. Patient ambulated for 244 meters and oxygen saturation remained 96 to 98%. Heart rate at the end of the study was 92 bpm. The patient did not qualify for supplemental oxygen at rest or with ambulation. 10/13/2023: Rest room air blood gas with a pH of 7.49, PaCO2 32, PaO2 103. This represents a uncompensated respiratory alkalosis with normal PaO2. collectively this demonstrates small airways disease with significant improvement from 07/27/2023. There is no need for supplemental oxygen. 10/06/2023: Overnight oximetry on room air: Recording duration 3 hours and 34 minutes. Baseline saturation 93%. High saturation 99%. Low saturation 82%. Time with saturation less than or equal to 88% was 14 minutes and 30 seconds. Oxygen desaturation index is 39.7. I will prescribe 2 L nasal cannula at night and repeat an overnight oximetry on 2 L. 10/17/2023: Our staff spoke with patient, refused oxygen at this time. 07/27/2023: PFTs from grounds maintenance supervisor Dr. Plata: Spirometry: Pre bronchodilator FVC 2.00 L, 59% predicted. FEV1 1.02 L, 40% predicted. pre bronchodilator FEV1: FVC ratio 51%. Lung volumes: TLC 3.07 L, 57% predicted, residual volume 1.36 L, 56% predicted. functional residual capacity 1.98 L, 57% predicted. Diffusing capacity 8.4, 34% predicted. 06/11/2023; Portable chest x-ray Comparison: 05/13/2023 Clinical History: SOB Findings:? Small bilateral pleural effusions are present. There is extensive haziness in the lungs, with central pulmonary venous congestive change.? Cardiomediastinal silhouette is stable. Bones and soft tissues are unremarkable. ? Impression: ?Small bilateral pleural effusions with probable mild pulmonary edema and central congestive change. Questionable underlying COPD or other chronic interstitial disease. 05/19/2023: CT scan of the chest without contrast report and image in from [facility] reason for study: A heart catheterization was performed on 05/18/2023 which showed multi-vessel disease and left main disease so CT surgery was consulted for CABG evaluation. Preop CABG looking at the a order for any calcification. Comparison none. Findings: The sensitivity for detection of solid visceral lesions is diminished without the use of intravenous contrast. Lungs: A small amount of mucus and debris seen within the trachea. Trace pulmonary edema. Small fissural lymph node in the right middle lobe measuring 5 mm. Pleural: Small right pleural effusion. Mediastinum -barrie: No identified masses or abnormal nodes. Impression: Severe coronary artery calcifications. Trace pulmonary edema. Severe stenosis of the SMA. 05/09/2023: Echo Summary ? 1. Definity contrast used to improve exam quality. ? 2. Mild global left ventricular systolic dysfunction ejection fraction 40-45%. ? 3. Moderate concentric left ventricular hypertrophy. ? 4. Sclerotic but nonstenotic aortic valve. ? 5. Compared with examination from 2017 left ventricular systolic function is reduced. Left Ventricle ? Left ventricular chamber dimension is mildly enlarged. ? Left ventricular systolic function is mildly reduced, estimated at 40-45%. ? There is moderate concentric increased left ventricular wall thickness. ? The left ventricular diastolic function is grade I diastolic dysfunction. Right Ventricle ? Right ventricular chamber dimension is normal. Left Atria ? Left atrial chamber dimension is mildly enlarged. Right Atria ? Right atrial chamber dimension is normal. Body of the report states RVSP 35. Review of Systems 2 Review of Systems: All systems reviewed & are unremarkable except as noted in HPI and below [facility] Past Medical History Medical History Chronic kidney disease, stage 4 (severe) Aortic stenosis Chronic respiratory failure with hypoxia, on home oxygen therapy Gastroesophageal reflux disease 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 Hyperlipidemia Chronic obstructive pulmonary disease Deep venous thrombosis Coronary artery disease Carotid stenosis, bilateral Depression due to physical illness Tobacco dependence Non-ST elevation myocardial infarction (NSTEMI) 05/08/2023 and 06/11/2023 Type 2 diabetes mellitus Chronic kidney disease Emphysema lung Allergies Anxiety Peripheral artery disease Hypertension Renal artery stenosis Surgical History Surgical History History of cataract extraction History of coronary artery stent placement History of cardiac catheterization History of tonsillectomy Family History Family History Mother Family history of diabetes mellitus in first degree relative Cerebrovascular accident Father Family history of emphysema Sibling Family history of malignant neoplasm Social History Social History Social History: Surrogate medical decision maker: Cheryledna Duval, spouse. Code status: Full code. Smoking packs per day: 0.5 Smoking cigarettes per day: 10.0 Years smoked: 60 Smoking pack-years: 30.00 Smoking status: Former smoker Tobacco type: cigarettes Alcohol intake: former Substance use: never Substance use type: does not use Do You Feel Safe in your Home?: Yes Lack of Transportation: No Lack of Food: Never True Current Housing: I Have Housing Concerned About Future Housing: No Difficulty Paying Gas/Electric Bills: No Difficulty Paying for Meds: No Currently Unemployed: No Education: High School Diploma/GED Difficulty w/ Childcare or Family Care: No Living arrangements: with family Occupation/Education: retired Spiritual care concerns: No Meds Home Medications and Allergies Home Medications ?Medication ?Instructions ?Recorded ?Confirmed ?Type aspirin 81 mg tablet,delayed 81 mg PO DAILY 12/04/19 06/19/24 History release (Adult Low Dose Aspirin) blood sugar diagnostic (Accu-Chek #100 ea 09/22/20 06/19/24 Rx Flory Plus test strips) albuterol sulfate 90 mcg/actuation 2 puff inhalation TID PRN 05/08/23 06/19/24 History aerosol inhaler Shortness Of Breath Or Wheezing ticagrelor 90 mg tablet 90 mg PO Q12H #60 tabs 09/06/23 06/19/24 Rx empagliflozin 25 mg tablet 25 mg PO QAM #30 tabs 10/15/23 06/19/24 Rx (Jardiance) atorvastatin 40 mg tablet 40 mg PO QPM #90 tabs 01/13/24 06/19/24 Rx glipizide 5 mg tablet 5 mg PO DAILY #90 tabs 02/03/24 06/19/24 Rx cholecalciferol (vitamin D3) 50 50 mcg PO HS 02/14/24 06/19/24 History mcg (2,000 unit) capsule albuterol sulfate 1.25 mg/3 mL 1.25 mg (3 mL) inhalation Q4-6H 02/28/24 06/19/24 Rx solution for nebulization PRN shortness of breath or wheezing #90 mL furosemide 20 mg tablet 20 mg PO QAM #90 tabs 02/29/24 06/19/24 Rx tamsulosin 0.4 mg capsule 0.4 mg PO DAILY #90 caps 05/08/24 06/19/24 Rx pantoprazole 40 mg tablet,delayed 40 mg PO DAILY #90 tabs 05/14/24 06/19/24 Rx release metoprolol succinate 25 mg 25 mg PO Q12H #180 tabs 05/18/24 06/19/24 Rx tablet,extended release 24 hr (Toprol XL) isosorbide mononitrate 20 mg tablet See Rx Instructions .Route 06/13/24 06/19/24 Rx .COMPLEX #180 tabs clonazepam 0.5 mg tablet 0.5 mg PO Q12H PRN anxiety 06/19/24 06/19/24 History sennosides 8.6 mg-docusate sodium 2 tab-cap PO DAILY PRN constipation 06/19/24 06/19/24 History 50 mg tablet (Stimulant Laxative Plus) Allergies Allergy/AdvReac Type Severity Reaction Status Date / Time No Known Allergies Allergy Unknown Verified 06/19/24 17:59 Vital Signs Vital Signs - 24 hr 06/22/24 00:00 06/22/24 04:00 06/22/24 07:34 Temperature 36.6 C 36.3 C L 36.2 C L Pulse Rate 94 85 85 Respiratory Rate 18 16 17 Blood Pressure 154/75 H 168/80 H 154/81 H Pulse Oximetry 95 92 95 Oxygen Delivery Oxygen Flow Rate 06/22/24 07:46 06/22/24 08:03 06/22/24 09:23 Temperature Pulse Rate 85 92 Respiratory Rate 17 Blood Pressure Pulse Oximetry 95 94 Oxygen Delivery Nasal Cannula Nasal Cannula Oxygen Flow Rate 2 2 06/22/24 09:52 06/22/24 11:06 06/22/24 11:14 Temperature Pulse Rate 86 88 Respiratory Rate 20 20 Blood Pressure Pulse Oximetry Oxygen Delivery Room Air Oxygen Flow Rate 06/22/24 11:45 06/22/24 16:00 06/22/24 20:51 Temperature 36.4 C L Pulse Rate 95 92 75 Respiratory Rate 20 18 Blood Pressure 153/72 H 168/69 H Pulse Oximetry 93 91 Oxygen Delivery Oxygen Flow Rate Exam 2 Narrative: GEN: Alert, oriented, not in distress. Mild accessory muscle use. Nasal cannula 2 L a minute, saturation 93%. Thin build. HEENT: pupils equal, symmetrical face; oral membranes moist, upper and lower dentures, Mallampati II airway, generous uvula NECK: Trachea is midline CHEST: Equal air entry, symmetric excursion, diminished breath sounds which are clear bilaterally, no wheezes or crackles CV: Regular S1S2 no m/g/r ABD : (+) bowel sounds Extremities : no clubbing, cyanosis, or edema PSYCH: normal thought and speech Results Laboratory Findings 06/22/24 04:52 06/22/24 04:52 ABG, PT/INR, D-dimer: ABG ABG pH 7.484 (7.350-7.450) H 06/19/24 11:51 ABG pCO2 36.1 mmHg (35.0-45.0) 06/19/24 11:51 ABG pO2 70.6 mmHg (80.0-100.0) L 06/19/24 11:51 ABG O2 Saturation 95.4 % (95.0-100.0) 06/19/24 11:51 PT/INR, D-dimer PT 14.3 Seconds (11.1-14.7) 06/19/24 10:54 INR 1.1 06/19/24 10:54 Abnormal lab findings: Abnormal Labs 06/19/24 06/19/24 06/19/24 10:54 10:55 11:51 WBC 12.2 H RBC Hgb Hct MCHC 31.9 L RDW MPV 10.6 H Immature Gran % (Auto) 0.8 H Neut % (Auto) 83.1 H Lymph % (Auto) 6.3 L [place] % (Auto) Lymph # (Auto) 0.77 L [place] # (Auto) 1.0 H Abs Immat Gran (auto) 0.10 H Absolute Neuts (auto) 10.2 H ABG pH 7.484 H ABG pO2 70.6 L ABG HCO3 26.5 H Chloride 97 L Carbon Dioxide BUN 43 H D Creatinine 1.95 H Estimated GFR 33 L Glucose 171 H POC Capillary Glucose Calcium Total Bilirubin 1.4 H Troponin I 0.235 H* C-Reactive Protein 3.1 H NT-Pro-B Natriuret Pep > 00132 H Urine Protein Urine Glucose (UA) Urine Ketones 06/19/24 06/19/24 06/19/24 12:00 16:51 19:58 WBC RBC Hgb Hct MCHC RDW MPV Immature Gran % (Auto) Neut % (Auto) Lymph % (Auto) [place] % (Auto) Lymph # (Auto) [place] # (Auto) Abs Immat Gran (auto) Absolute Neuts (auto) ABG pH ABG pO2 ABG HCO3 Chloride Carbon Dioxide BUN Creatinine Estimated GFR Glucose POC Capillary Glucose Calcium Total Bilirubin Troponin I 0.219 H* 0.197 H* C-Reactive Protein NT-Pro-B Natriuret Pep Urine Protein 3+ H Urine Glucose (UA) 3+ H Urine Ketones Trace H 06/19/24 06/20/24 06/20/24 20:36 04:06 07:44 WBC 10.9 H RBC 4.36 L Hgb 12.7 L Hct 39.4 L MCHC RDW 14.6 H MPV Immature Gran % (Auto) 0.6 H Neut % (Auto) 77.9 H Lymph % (Auto) 8.2 L [place] % (Auto) 10.7 H Lymph # (Auto) 0.89 L [place] # (Auto) 1.2 H Abs Immat Gran (auto) 0.07 H Absolute Neuts (auto) 8.5 H ABG pH ABG pO2 ABG HCO3 Chloride 95 L Carbon Dioxide 33 H BUN 48 H Creatinine 2.30 H Estimated GFR 28 L Glucose POC Capillary Glucose 229 H 119 H Calcium 8.2 L Total Bilirubin Troponin I C-Reactive Protein NT-Pro-B Natriuret Pep Urine Protein Urine Glucose (UA) Urine Ketones 06/20/24 06/20/24 06/20/24 11:51 15:05 19:41 WBC RBC Hgb Hct MCHC RDW MPV Immature Gran % (Auto) Neut % (Auto) Lymph % (Auto) [place] % (Auto) Lymph # (Auto) [place] # (Auto) Abs Immat Gran (auto) Absolute Neuts (auto) ABG pH ABG pO2 ABG HCO3 Chloride Carbon Dioxide BUN Creatinine Estimated GFR Glucose POC Capillary Glucose 183 H 129 H 174 H Calcium Total Bilirubin Troponin I C-Reactive Protein NT-Pro-B Natriuret Pep Urine Protein Urine Glucose (UA) Urine Ketones 06/21/24 06/21/24 06/21/24 06:43 07:58 11:56 WBC 11.0 H RBC 4.11 L Hgb 12.0 L Hct 37.8 L MCHC 31.7 L RDW MPV 11.0 H Immature Gran % (Auto) 0.9 H Neut % (Auto) 78.6 H Lymph % (Auto) 9.0 L [place] % (Auto) Lymph # (Auto) [place] # (Auto) 0.9 H Abs Immat Gran (auto) 0.10 H Absolute Neuts (auto) 8.7 H ABG pH ABG pO2 ABG HCO3 Chloride 96 L Carbon Dioxide 31 H BUN 57 H Creatinine 2.43 H Estimated GFR 26 L Glucose POC Capillary Glucose 126 H 216 H Calcium 8.0 L Total Bilirubin Troponin I C-Reactive Protein NT-Pro-B Natriuret Pep Urine Protein Urine Glucose (UA) Urine Ketones 06/21/24 06/21/24 06/22/24 17:49 20:18 04:52 WBC 13.1 H RBC 4.41 L Hgb 12.6 L Hct 39.9 L MCHC 31.6 L RDW MPV 10.6 H Immature Gran % (Auto) 1.1 H Neut % (Auto) 82.2 H Lymph % (Auto) 5.0 L [place] % (Auto) Lymph # (Auto) 0.66 L [place] # (Auto) 1.1 H Abs Immat Gran (auto) 0.14 H Absolute Neuts (auto) 10.8 H ABG pH ABG pO2 ABG HCO3 Chloride 94 L Carbon Dioxide 35 H BUN 59 H Creatinine 2.35 H Estimated GFR 27 L Glucose 163 H POC Capillary Glucose 244 H 171 H Calcium Total Bilirubin Troponin I C-Reactive Protein NT-Pro-B Natriuret Pep Urine Protein Urine Glucose (UA) Urine Ketones 06/22/24 06/22/24 06/22/24 07:37 11:27 17:25 WBC RBC Hgb Hct MCHC RDW MPV Immature Gran % (Auto) Neut % (Auto) Lymph % (Auto) [place] % (Auto) Lymph # (Auto) [place] # (Auto) Abs Immat Gran (auto) Absolute Neuts (auto) ABG pH ABG pO2 ABG HCO3 Chloride Carbon Dioxide BUN Creatinine Estimated GFR Glucose POC Capillary Glucose 167 H 245 H 247 H Calcium Total Bilirubin Troponin I C-Reactive Protein NT-Pro-B Natriuret Pep Urine Protein Urine Glucose (UA) Urine Ketones
[2024-06-22 22:10] LABS: Glucose Point of Care 298 mg/dl (65-105)
[2024-06-23] VITALS (10 sets, daily range): BP systolic 140–172; BP diastolic 60–87; PULSE 58–91; RESP 12–18; TEMP 36.5–37.2; O2SAT 91–99
[2024-06-23 05:43] LABS: Basophils Absolute Auto 0.1 K/mm3 (0.0-0.1); Basophils Percent Auto 0.5 % (0.2-1.2); Eosinophils Absolute Auto 0.3 K/mm3 (0-0.3); Eosinophils Percent Auto 2.6 % (0-4.4); Hematocrit 38.2 % (42.0-52.0); Hemoglobin 12.5 g/dL (14.0-18.0); Immature Granulocyte Absolute 0.14 K/mm3 (0.00-0.031); Immature Granulocyte Percent A 1.2 % (0-0.5); Lymphocytes Percent Auto 5.1 % (18.3-44.2); Mean Corpuscular HGB Conc 32.7 g/dl (32-36); Mean Corpuscular Hemoglobin 29.3 pg (26-34); Mean Corpuscular Volume 89.7 fl (80-100); Mean Platelet Volume 10.7 fl (7.4-10.4); Monocytes Percent Auto 8.9 % (2.6-8.5); Neutrophils Absolute Auto 9.6 K/mm3 (1.3-6.7); Neutrophils Percent Auto 81.7 % (45.5-73.1); Platelet Count Result 298 k/mm3 (150-375); Red Blood Count 4.26 M/mm3 (4.6-6.20); Red Cell Distribution Width 14.3 % (11.5-14.5); White Blood Count 11.7 K/mm3 (4.5-10.0)
[2024-06-23 05:52] LABS: Anion Gap 7 mmol/L (4-12); Blood Urea Nitrogen 59 mg/dL (9-20); Calcium 8.9 mg/dL (8.4-10.2); Carbon Dioxide 37 mmol/L (22-30); Chloride 92 mmol/L (98-107); Estimated CRCL calculation 19 ml/min; Estimated Glomerular Filt Rate 29; Glucose 160 mg/dL (65-110); Magnesium 1.9 mg/dL (1.6-2.3); Potassium 3.8 mmol/L (3.4-5.0); Sodium 136 mmol/L (137-145)
--- NOTE | 2024-06-23 07:54 | PM.PNCARD ---
Progress Note: A&P Assessment and Plan (1) Combined systolic and diastolic cardiac dysfunction: Code(s): I51.89 - Other ill-defined heart diseases Status: Acute Assessment and Plan: Acute on chronic. On Lasix 40 mg IV BID. Monitor UOP. Net balance even. Restrict fluid intake 1.5 l/day. Decrease Lasix 20 mg IV BID. If he goes home change Lasix to 40 mg PO daily. (2) Pneumonia: Code(s): J18.9 - Pneumonia, unspecified organism Status: Acute Assessment and Plan: On antibiotics as per hospitalist. (3) Chronic kidney disease, stage 4 (severe): Code(s): N18.4 - Chronic kidney disease, stage 4 (severe) Status: Chronic Assessment and Plan: Monitor with diuresis. (4) Coronary artery disease: Code(s): I25.10 - Atherosclerotic heart disease of [place] coronary artery without angina pectoris Status: Acute Assessment and Plan: On dual antiplatelets and continue that for additional 3 months given stents in LM and LCx. (5) Hyperlipidemia: Code(s): E78.5 - Hyperlipidemia, unspecified Status: Acute Assessment and Plan: On Atorvastatin. (6) Elevated troponin: Code(s): R79.89 - Other specified abnormal findings of blood chemistry Status: Acute Assessment and Plan: Moderate but flat elevation at 0.235. Doubt ACS as no chest pain. Probably due to CHF and pneumonia in setting of CKD. Subjective Date/time seen: 06/23/24 07:54 Interval history: Denies chest pain or sob. He wants to go home. Exam Const: General: cooperative, healthy appearing and comfortable Orientation/consciousness: oriented to person, oriented to place and oriented to time Resp: Auscultation: clear to auscultation bilaterally and no wheezes Cardio: Rate: regular rate Rhythm: regular rhythm Heart sounds: Murmur heart sound present (I/ systolic murmur RICS) Peripheral pulses: dorsalis pedis present Neuro: General: oriented to person, oriented to place and oriented to time Extrem: Right lower extremity: no edema Left lower extremity: no edema Objective Data Vital Signs Vital Signs: Vital Signs - 24 hr 06/22/24 08:03 06/22/24 09:23 06/22/24 09:52 Temperature Pulse Rate 92 Respiratory Rate Blood Pressure Pulse Oximetry 94 Oxygen Delivery Nasal Cannula Room Air Oxygen Flow Rate 2 06/22/24 11:06 06/22/24 11:14 06/22/24 11:45 Temperature 97.5 F L Pulse Rate 86 88 95 Respiratory Rate 20 20 20 Blood Pressure 153/72 H Pulse Oximetry 93 Oxygen Delivery Oxygen Flow Rate 06/22/24 16:00 06/22/24 20:50 06/22/24 20:51 Temperature Pulse Rate 92 75 75 Respiratory Rate 18 18 Blood Pressure 168/69 H Pulse Oximetry 91 91 Oxygen Delivery Room Air Oxygen Flow Rate 06/22/24 21:05 06/23/24 00:00 06/23/24 04:00 Temperature 98.2 F 98.1 F 98.9 F Pulse Rate 94 91 81 Respiratory Rate 18 16 18 Blood Pressure 162/66 H 164/67 H 140/64 Pulse Oximetry 93 92 94 Oxygen Delivery Oxygen Flow Rate Intake/Output Intake/Output: Intake & Output 06/20/24 06/21/24 06/22/24 06/23/24 23:59 23:59 23:59 23:59 Intake Total 1020 1310 2000 100 Output Total 625 499 0806 900 Balance 70 510 950 -800 Meds/Results Medications: Active Medications Generic Name Dose Route Start Last Admin Trade Name Freq PRN Reason Stop Dose Admin Acetaminophen 650 mg 06/19/24 14:15 Acetaminophen 325 Mg Tablet PO Q4H PRN Mild Pain (1-3) or Fever Albuterol 1.25 mg 06/19/24 18:43 06/22/24 11:06 Albuterol Sulfate Neb 2.5 Mg/3 Ml Inh INHALATION 1.25 mg Q4-6H PRN Administration shortness of breath or wheezing Amlodipine Besylate 5 mg 06/22/24 09:00 06/22/24 08:04 Amlodipine Besylate 5 Mg Tablet PO 5 mg DAILY TOM Administration Amoxicillin/Clavulanate Potassium 1 tablet 06/23/24 09:00 Amoxicillin/Clavulanate K 500-125 Mg Tab PO 06/23/24 21:01 Q12HR TOM Aspirin 81 mg 06/20/24 09:00 06/22/24 08:04 Aspirin 81 Mg Enteric Tablet PO 81 mg DAILY TOM Administration Atorvastatin Calcium 40 mg 06/19/24 18:45 06/22/24 17:51 Atorvastatin 40 Mg Tablet PO 40 mg QPM TOM Administration Clonazepam 0.5 mg 06/19/24 18:32 06/21/24 20:35 Clonazepam (*Crx) 0.5 Mg Tablet PO 0.5 mg Q12H PRN Administration anxiety Dextrose 12.5 gm 06/19/24 16:31 Dextrose 50% 25 Gm/50 Ml Syringe IV PUSH PRN PRN Hypoglycemia Protocol Doxycycline Hyclate 100 mg 06/22/24 21:00 06/22/24 20:52 Doxycycline Hyclate 100 Mg Tablet PO 06/23/24 21:01 100 mg Q12HR TOM Administration Empagliflozin 25 mg 06/20/24 09:00 06/22/24 08:04 Empagliflozin 25 Mg Tablet PO 25 mg QAM TOM Administration Fluticasone Propionate 1 spray 06/20/24 09:00 06/22/24 21:26 Fluticasone Propionate 0.05% Na Spr 16 Gm Btl (*Bkc) NASAL 1 spray Q12HR TOM Administration Furosemide 40 mg 06/20/24 21:00 06/22/24 20:52 Furosemide Inj 40 Mg/4 Ml Vial IV PUSH 40 mg Q12HR TOM Administration Glipizide 5 mg 06/20/24 09:00 06/22/24 08:04 Glipizide 5 Mg Tablet PO 5 mg DAILY TOM Administration Glucagon 1 mg 06/19/24 16:31 Glucagon For Inj 1 Mg Vial IM PRN PRN Hypoglycemia Protocol Glucose 15 gm 06/19/24 16:31 Glucose Oral Gel 15 Gm Of Glucse In 37.5 Gm Tube PO PRN PRN Hypoglycemia Protocol Dextrose 1,000 mls @ 100 mls/hr 06/19/24 16:31 Dextrose 5% 1,000 Ml IVPB PRN PRN Hypoglycemia Protocol Insulin Aspart 2 - 5 units 06/19/24 17:00 06/22/24 17:52 Insulin Aspart (*Bkc) 100 Units/Ml SUB-Q 2 units TIDWM TOM Administration Protocol Insulin Aspart 1 - 2 units 06/19/24 21:00 06/22/24 21:26 Insulin Aspart (*Bkc) 100 Units/Ml SUB-Q 2 units HS TOM Administration Protocol Isosorbide Dinitrate 20 mg 06/19/24 19:50 06/22/24 18:13 Isosorbide Dinitrate 20 Mg Tablet PO 20 mg BID TOM Administration Metoprolol Succinate 25 mg 06/19/24 21:00 06/22/24 20:51 Metoprolol Succinate Ext Rel 25 Mg Tabcr PO 25 mg Q12H TOM Administration Ondansetron HCl 4 mg 06/20/24 15:53 06/20/24 16:00 Ondansetron Inj 4 Mg/2 Ml Vial IV PUSH 4 mg Q6H PRN Administration Nausea And Vomiting Pantoprazole Sodium 40 mg 06/20/24 09:00 06/22/24 08:04 Pantoprazole 40 Mg Tablet PO 40 mg DAILY TOM Administration Senna/Docusate Sodium 2 tab 06/19/24 18:32 Senna/Docusate Sodium Tablet PO DAILY PRN constipation Tamsulosin HCl 0.4 mg 06/20/24 09:00 06/22/24 08:04 Tamsulosin Hcl 0.4 Mg Capsule PO 0.4 mg DAILY TOM Administration Ticagrelor 90 mg 06/19/24 21:00 06/22/24 20:51 Ticagrelor 90 Mg Tablet PO 90 mg Q12H TOM Administration Vitamin D 2,000 units 06/19/24 21:00 06/22/24 20:51 Cholecalciferol 1,000 Units Tablet PO 2,000 units HS TOM Administration Radiology Results: ITS Impressions Chest CTA 06/19/24 13:21 IMPRESSION: 1. No pulmonary embolism. 2. Bilateral basilar atelectasis versus pneumonia with bilateral large pleural effusion. 3. Trace of pericardial effusion with cardiomegaly. 4. Bilateral interstitial thickening which may indicate edema versus pneumonitis. Chest X-Ray 06/22/24 09:25 IMPRESSION: 1. Likely congestive heart failure with cardiomegaly and mild pulmonary edema. 2. Small bilateral pleural effusions with associated basilar atelectasis versus pneumonia. Labs Labs: Laboratory Results - last 24 hr 06/22/24 06/22/24 06/22/24 11:27 17:25 21:09 WBC RBC Hgb Hct MCV MCH MCHC RDW Plt Count MPV Immature Gran % (Auto) Neut % (Auto) Lymph % (Auto) [place] % (Auto) Eos % (Auto) Baso % (Auto) Lymph # (Auto) [place] # (Auto) Eos # (Auto) Baso # (Auto) Abs Immat Gran (auto) Absolute Neuts (auto) Absolute Nucleated RBC Nucleated RBC % Sodium Potassium Chloride Carbon Dioxide Anion Gap BUN Creatinine Estim Creat Clear Calc Estimated GFR Glucose POC Capillary Glucose 245 H 247 H 298 H Calcium Magnesium 06/23/24 05:10 WBC 11.7 H RBC 4.26 L Hgb 12.5 L Hct 38.2 L MCV 89.7 MCH 29.3 MCHC 32.7 RDW 14.3 Plt Count 298 MPV 10.7 H Immature Gran % (Auto) 1.2 H Neut % (Auto) 81.7 H Lymph % (Auto) 5.1 L [place] % (Auto) 8.9 H Eos % (Auto) 2.6 Baso % (Auto) 0.5 Lymph # (Auto) 0.60 L [place] # (Auto) 1.0 H Eos # (Auto) 0.3 Baso # (Auto) 0.1 Abs Immat Gran (auto) 0.14 H Absolute Neuts (auto) 9.6 H Absolute Nucleated RBC 0.000 Nucleated RBC % 0.0 Sodium 136 L Potassium 3.8 Chloride 92 L Carbon Dioxide 37 H Anion Gap 7 BUN 59 H Creatinine 2.23 H Estim Creat Clear Calc 19 Estimated GFR 29 L Glucose 160 H POC Capillary Glucose Calcium 8.9 Magnesium 1.9
[2024-06-23 08:01] LABS: Glucose Point of Care 203 mg/dl (65-105)
--- NOTE | 2024-06-23 08:34 | PM.IMPN ---
Progress Note: A&P Assessment and Plan (1) Acute on chronic combined systolic and diastolic heart failure: Code(s): I50.43 - Acute on chronic combined systolic (congestive) and diastolic (congestive) heart failure Status: Acute (2) Acute and chronic respiratory failure with hypoxia: Code(s): J96.21 - Acute and chronic respiratory failure with hypoxia Status: Acute (3) Elevated troponin: Code(s): R79.89 - Other specified abnormal findings of blood chemistry Status: Acute (4) Aortic stenosis: Code(s): I35.0 - Nonrheumatic aortic (valve) stenosis Status: Acute (5) Bilateral pleural effusion: Code(s): J90 - Pleural effusion, not elsewhere classified Status: Acute (6) Chronic obstructive pulmonary disease: Code(s): J44.9 - Chronic obstructive pulmonary disease, unspecified Status: Acute (7) Hypertension: Qualifiers: Hypertension type: secondary to other renal disorders Qualified Code(s): I15.1 - Hypertension secondary to other renal disorders Code(s): I10 - Essential (primary) hypertension Status: Chronic (8) Type 2 diabetes mellitus: Qualifiers: Chronic kidney disease stage: stage 4 (severe) Diabetes mellitus complication detail: with chronic kidney disease Diabetes mellitus complication status: with kidney complications Diabetes mellitus senior living insulin use: without technician terminal and repeater use Qualified Code(s): E11.22 - Type 2 diabetes mellitus with diabetic chronic kidney disease; N18.4 - Chronic kidney disease, stage 4 (severe) Code(s): E11.9 - Type 2 diabetes mellitus without complications Status: Chronic (9) Chronic kidney disease, stage 4 (severe): Code(s): N18.4 - Chronic kidney disease, stage 4 (severe) Status: Chronic (10) CHF exacerbation: Qualifiers: Heart failure type: systolic Qualified Code(s): I50.23 - Acute on chronic systolic (congestive) heart failure Code(s): I50.9 - Heart failure, unspecified Status: Acute Plan 79 years old gentleman with history of CAD, combined CHF, GERD, type 2 diabetes, PVD, COPD, chronic respiratory failure with O2 home therapy, BPH, brought to ED by EMS because of shortness breath. Patient also has Raynaud's and nonproductive cough. Patient was found have hypoxemia in the ED,SpO2 in the mid 90s on 5 L. Heart rate has been in the low 100s to 120s an EKG shows a sinus tachycardia with ST T-wave abnormalities in the lateral leads. Labs were significant for a troponin of 0.235, proBNP greater than 30,000, BUN 43, creatinine 1.95, WBC count 12.2. He tested negative for influenza, COVID, and RSV. chest CTA was negative for pulmonary embolism but did show bibasilar atelectasis versus pneumonia, large bilateral pleural effusions, and trace pericardial effusion as well as bilateral interstitial thickening which may indicate edema versus pneumonitis Acute on chronic combined heart failure Shortness breath, worse with exertion, elevated BMP Chest CT shows large bilateral pleural effusions Patient is on IV Lasix 40 mg b.i.d. IV push Consult ferry terminal supervisor for evaluation treatment CXR 06/22 :Likely congestive heart failure with cardiomegaly and mild pulmonary edema.2. Small bilateral pleural effusions with associated basilar atelectasis versus pneumonia. Decrease Lasix to 20 mg b.i.d. IV push per ferry terminal supervisor History of CAD Denies chest pain Continue aspirin and Brilinta p.o. Further assessment management per ferry terminal supervisor COPD Possible COPD exacerbation due to pneumonia Patient received azithromycin ceftriaxone in the ED Continue the treatment Continue DuoNeb and a boot nebulizer. Start O2 therapy p.r.n. to keep pulse ox above 94 Continue methylprednisone IV Acute on chronic respiratory failure Possible resulting from CHF, COPD, pleural effusion Patient is on 4 oxygen Pneumonia and pleural effusion CT showed Bilateral basilar atelectasis versus pneumonia with bilateral large pleural effusion. Consult pulmonology for evaluation treatment repeat CXR 06/22: Small bilateral pleural effusions with associated basilar atelectasis versus pneumonia. On ceftriaxone and doxycycline IV since 06/19, increased ceftriaxone to 2 g IV daily leukocytosis is worse change to augmentin and doxy po 06/23 Type 2 diabetes Initiate sliding scale insulin, Accu-Cheks, and hypoglycemic protocol. CKD stage 4 BUN creatinine elevated, but on the baseline Avoid nephrotoxic medication Follow-up BMP Follow-up urinalysis: No pyuria Essential hypertension Blood pressure stable Subjective Date/time seen: 06/23/24 08:34 Interval history: I saw exam patient today. Patient feels better today, dyspnea improved, exercise tolerance increased Patient still has general weakness. Patient is afebrile, blood pressure stable, pulse ox 95 on 2 L oxygen Exam Narrative: GENERAL: Pleasant, in no acute distress. Well-nourished. - EYES: EOMI. Anicteric. - HENT: Moist mucous membranes. - LUNGS: Coarse breath sound bilateral base, no wheezing, rhonchi, or rales. - CARDIOVASCULAR: Regular rate and rhythm. No murmur. No JVD. - ABDOMEN: Soft, non-tender and non-distended. No palpable masses. - EXTREMITIES: No edema. Peripheral pulses 2+. Non-tender. - NEUROLOGIC: No focal neurological deficits. CN II-XII grossly intact. - PSYCHIATRIC: Awake, Alert and oriented x 3. Appropriate mood and affect. - SKIN: No rashes or lesions. Warm. - LYMPH: No cervical lymphadenopathy. Objective Data Vital Signs Vital Signs: Vital Signs - 24 hr 06/22/24 09:23 06/22/24 09:52 06/22/24 11:06 Temperature Pulse Rate 86 Respiratory Rate 20 Blood Pressure Pulse Oximetry 94 Oxygen Delivery Nasal Cannula Room Air Oxygen Flow Rate 2 06/22/24 11:14 06/22/24 11:45 06/22/24 16:00 Temperature 97.5 F L Pulse Rate 88 95 92 Respiratory Rate 20 20 18 Blood Pressure 153/72 H 168/69 H Pulse Oximetry 93 91 Oxygen Delivery Oxygen Flow Rate 06/22/24 20:50 06/22/24 20:51 06/22/24 21:05 Temperature 98.2 F Pulse Rate 75 75 94 Respiratory Rate 18 18 Blood Pressure 162/66 H Pulse Oximetry 91 93 Oxygen Delivery Room Air Oxygen Flow Rate 06/23/24 00:00 06/23/24 04:00 Temperature 98.1 F 98.9 F Pulse Rate 91 81 Respiratory Rate 16 18 Blood Pressure 164/67 H 140/64 Pulse Oximetry 92 94 Oxygen Delivery Oxygen Flow Rate Intake/Output Intake/Output: Intake & Output 06/20/24 06/21/24 06/22/24 06/23/24 23:59 23:59 23:59 23:59 Intake Total 1020 1310 2000 100 Output Total 647 167 1784 900 Balance 70 510 950 -800 Meds/Results Medications: Active Medications Generic Name Dose Route Start Last Admin Trade Name Freq PRN Reason Stop Dose Admin Acetaminophen 650 mg 06/19/24 14:15 Acetaminophen 325 Mg Tablet PO Q4H PRN Mild Pain (1-3) or Fever Albuterol 1.25 mg 06/19/24 18:43 06/22/24 11:06 Albuterol Sulfate Neb 2.5 Mg/3 Ml Inh INHALATION 1.25 mg Q4-6H PRN Administration shortness of breath or wheezing Amlodipine Besylate 5 mg 06/22/24 09:00 06/22/24 08:04 Amlodipine Besylate 5 Mg Tablet PO 5 mg DAILY TOM Administration Amoxicillin/Clavulanate Potassium 1 tablet 06/23/24 09:00 Amoxicillin/Clavulanate K 500-125 Mg Tab PO 06/23/24 21:01 Q12HR TOM Aspirin 81 mg 06/20/24 09:00 06/22/24 08:04 Aspirin 81 Mg Enteric Tablet PO 81 mg DAILY TOM Administration Atorvastatin Calcium 40 mg 06/19/24 18:45 06/22/24 17:51 Atorvastatin 40 Mg Tablet PO 40 mg QPM TOM Administration Clonazepam 0.5 mg 06/19/24 18:32 06/21/24 20:35 Clonazepam (*Crx) 0.5 Mg Tablet PO 0.5 mg Q12H PRN Administration anxiety Dextrose 12.5 gm 06/19/24 16:31 Dextrose 50% 25 Gm/50 Ml Syringe IV PUSH PRN PRN Hypoglycemia Protocol Doxycycline Hyclate 100 mg 06/22/24 21:00 06/22/24 20:52 Doxycycline Hyclate 100 Mg Tablet PO 06/23/24 21:01 100 mg Q12HR TOM Administration Empagliflozin 25 mg 06/20/24 09:00 06/22/24 08:04 Empagliflozin 25 Mg Tablet PO 25 mg QAM TOM Administration Fluticasone Propionate 1 spray 06/20/24 09:00 06/22/24 21:26 Fluticasone Propionate 0.05% Na Spr 16 Gm Btl (*Bkc) NASAL 1 spray Q12HR TOM Administration Furosemide 20 mg 06/23/24 09:00 Furosemide Inj 40 Mg/4 Ml Vial IV PUSH Q12HR TOM Glipizide 5 mg 06/20/24 09:00 06/22/24 08:04 Glipizide 5 Mg Tablet PO 5 mg DAILY TOM Administration Glucagon 1 mg 06/19/24 16:31 Glucagon For Inj 1 Mg Vial IM PRN PRN Hypoglycemia Protocol Glucose 15 gm 06/19/24 16:31 Glucose Oral Gel 15 Gm Of Glucse In 37.5 Gm Tube PO PRN PRN Hypoglycemia Protocol Dextrose 1,000 mls @ 100 mls/hr 06/19/24 16:31 Dextrose 5% 1,000 Ml IVPB PRN PRN Hypoglycemia Protocol Insulin Aspart 2 - 5 units 06/19/24 17:00 06/22/24 17:52 Insulin Aspart (*Bkc) 100 Units/Ml SUB-Q 2 units TIDWM TOM Administration Protocol Insulin Aspart 1 - 2 units 06/19/24 21:00 06/22/24 21:26 Insulin Aspart (*Bkc) 100 Units/Ml SUB-Q 2 units HS [facility] Administration Protocol Isosorbide Dinitrate 20 mg 06/19/24 19:50 06/22/24 18:13 Isosorbide Dinitrate 20 Mg Tablet PO 20 mg BID TOM Administration Metoprolol Succinate 25 mg 06/19/24 21:00 06/22/24 20:51 Metoprolol Succinate Ext Rel 25 Mg Tabcr PO 25 mg Q12H TOM Administration Ondansetron HCl 4 mg 06/20/24 15:53 06/20/24 16:00 Ondansetron Inj 4 Mg/2 Ml Vial IV PUSH 4 mg Q6H PRN Administration Nausea And Vomiting Pantoprazole Sodium 40 mg 06/20/24 09:00 06/22/24 08:04 Pantoprazole 40 Mg Tablet PO 40 mg DAILY [facility] Administration Senna/Docusate Sodium 2 tab 06/19/24 18:32 Senna/Docusate Sodium Tablet PO DAILY PRN constipation Tamsulosin HCl 0.4 mg 06/20/24 09:00 06/22/24 08:04 Tamsulosin Hcl 0.4 Mg Capsule PO 0.4 mg DAILY TOM Administration Ticagrelor 90 mg 06/19/24 21:00 06/22/24 20:51 Ticagrelor 90 Mg Tablet PO 90 mg Q12H [facility] Administration Vitamin D 2,000 units 06/19/24 21:00 06/22/24 20:51 Cholecalciferol 1,000 Units Tablet PO 2,000 units HS [facility] Administration Radiology Results: ITS Impressions Chest CTA 06/19/24 13:21 IMPRESSION: 1. No pulmonary embolism. 2. Bilateral basilar atelectasis versus pneumonia with bilateral large pleural effusion. 3. Trace of pericardial effusion with cardiomegaly. 4. Bilateral interstitial thickening which may indicate edema versus pneumonitis. Chest X-Ray 06/22/24 09:25 IMPRESSION: 1. Likely congestive heart failure with cardiomegaly and mild pulmonary edema. 2. Small bilateral pleural effusions with associated basilar atelectasis versus pneumonia. Labs Labs: Laboratory Results - last 24 hr 06/22/24 06/22/24 06/22/24 11:27 17:25 21:09 WBC RBC Hgb Hct MCV MCH MCHC RDW Plt Count MPV Immature Gran % (Auto) Neut % (Auto) Lymph % (Auto) [place] % (Auto) Eos % (Auto) Baso % (Auto) Lymph # (Auto) [place] # (Auto) Eos # (Auto) Baso # (Auto) Abs Immat Gran (auto) Absolute Neuts (auto) Absolute Nucleated RBC Nucleated RBC % Sodium Potassium Chloride Carbon Dioxide Anion Gap BUN Creatinine Estim Creat Clear Calc Estimated GFR Glucose POC Capillary Glucose 245 H 247 H 298 H Calcium Magnesium 06/23/24 06/23/24 05:10 07:56 WBC 11.7 H RBC 4.26 L Hgb 12.5 L Hct 38.2 L MCV 89.7 MCH 29.3 MCHC 32.7 RDW 14.3 Plt Count 298 MPV 10.7 H Immature Gran % (Auto) 1.2 H Neut % (Auto) 81.7 H Lymph % (Auto) 5.1 L [place] % (Auto) 8.9 H Eos % (Auto) 2.6 Baso % (Auto) 0.5 Lymph # (Auto) 0.60 L [place] # (Auto) 1.0 H Eos # (Auto) 0.3 Baso # (Auto) 0.1 Abs Immat Gran (auto) 0.14 H Absolute Neuts (auto) 9.6 H Absolute Nucleated RBC 0.000 Nucleated RBC % 0.0 Sodium 136 L Potassium 3.8 Chloride 92 L Carbon Dioxide 37 H Anion Gap 7 BUN 59 H Creatinine 2.23 H Estim Creat Clear Calc 19 Estimated GFR 29 L Glucose 160 H POC Capillary Glucose 203 H Calcium 8.9 Magnesium 1.9
[2024-06-23] MEDS: INSULIN ASPART (*BKC) 100 UNITS/ML SUB-Q ×3 (08:41→17:13)
[2024-06-23] MEDS: FLUTICASONE PROPIONATE 0.05% NA SPR 16 GM BTL (*BKC) 1 SPRAY NASAL ×2 (08:41→20:23)
[2024-06-23] MEDS: FUROSEMIDE INJ 40 MG/4 ML VIAL 20 MG IV PUSH ×2 (08:41→20:39)
[2024-06-23] MEDS: PANTOPRAZOLE 40 MG TABLET PO (08:42)
[2024-06-23] MEDS: TICAGRELOR 90 MG TABLET PO ×2 (08:42→20:22)
[2024-06-23] MEDS: AMOXICILLIN/CLAVULANATE K 500-125 MG TAB 1 TABLET PO ×2 (08:42→20:22)
[2024-06-23] MEDS: EMPAGLIFLOZIN 25 MG TABLET PO (08:42)
[2024-06-23] MEDS: ISOSORBIDE DINITRATE 20 MG TABLET PO ×2 (08:42→17:13)
[2024-06-23] MEDS: glipiZIDE 5 MG TABLET PO (08:42)
[2024-06-23] MEDS: METOPROLOL SUCCINATE EXT REL 25 MG TABCR PO ×2 (08:42→20:22)
[2024-06-23] MEDS: TAMSULOSIN HCL 0.4 MG CAPSULE PO (08:42)
[2024-06-23] MEDS: DOXYCYCLINE HYCLATE 100 MG TABLET PO ×2 (08:43→20:22)
[2024-06-23] MEDS: amLODIPine BESYLATE 5 MG TABLET PO (08:43)
[2024-06-23] MEDS: ASPIRIN 81 MG ENTERIC TABLET PO (08:43)
[2024-06-23 11:57] LABS: Glucose Point of Care 237 mg/dl (65-105)
[2024-06-23 17:04] LABS: Glucose Point of Care 306 mg/dl (65-105)
[2024-06-23] MEDS: ATORVASTATIN 40 MG TABLET PO (17:13)
[2024-06-23] MEDS: CHOLECALCIFEROL 1,000 UNITS TABLET 2000 UNITS PO (20:22)
[2024-06-23 20:41] LABS: Glucose Point of Care 134 mg/dl (65-105)
[2024-06-24 04:00] VITALS: BP 153/76; PULSE 83; RESP 16; TEMP 36.7; O2SAT 99
[2024-06-24 08:00] VITALS: BP 154/68; PULSE 92; RESP 18; TEMP 36.1; O2SAT 95
[2024-06-24 08:28] LABS: Glucose Point of Care 173 mg/dl (65-105)
--- NOTE | 2024-06-24 08:30 | PM.IMPN ---
Progress Note: A&P Assessment and Plan (1) Acute on chronic combined systolic and diastolic heart failure: Code(s): I50.43 - Acute on chronic combined systolic (congestive) and diastolic (congestive) heart failure Status: Acute (2) Acute and chronic respiratory failure with hypoxia: Code(s): J96.21 - Acute and chronic respiratory failure with hypoxia Status: Acute (3) Elevated troponin: Code(s): R79.89 - Other specified abnormal findings of blood chemistry Status: Acute (4) Aortic stenosis: Code(s): I35.0 - Nonrheumatic aortic (valve) stenosis Status: Acute (5) Bilateral pleural effusion: Code(s): J90 - Pleural effusion, not elsewhere classified Status: Acute (6) Chronic obstructive pulmonary disease: Code(s): J44.9 - Chronic obstructive pulmonary disease, unspecified Status: Acute (7) Hypertension: Qualifiers: Hypertension type: secondary to other renal disorders Qualified Code(s): I15.1 - Hypertension secondary to other renal disorders Code(s): I10 - Essential (primary) hypertension Status: Chronic (8) Type 2 diabetes mellitus: Qualifiers: Chronic kidney disease stage: stage 4 (severe) Diabetes mellitus complication detail: with chronic kidney disease Diabetes mellitus complication status: with kidney complications Diabetes mellitus nursing home insulin use: without terminal operations manager use Qualified Code(s): E11.22 - Type 2 diabetes mellitus with diabetic chronic kidney disease; N18.4 - Chronic kidney disease, stage 4 (severe) Code(s): E11.9 - Type 2 diabetes mellitus without complications Status: Chronic (9) Chronic kidney disease, stage 4 (severe): Code(s): N18.4 - Chronic kidney disease, stage 4 (severe) Status: Chronic (10) CHF exacerbation: Qualifiers: Heart failure type: systolic Qualified Code(s): I50.23 - Acute on chronic systolic (congestive) heart failure Code(s): I50.9 - Heart failure, unspecified Status: Acute Plan 79 years old gentleman with history of CAD, combined CHF, GERD, type 2 diabetes, PVD, COPD, chronic respiratory failure with O2 home therapy, BPH, brought to ED by EMS because of shortness breath. Patient also has Raynaud's and nonproductive cough. Patient was found have hypoxemia in the ED,SpO2 in the mid 90s on 5 L. Heart rate has been in the low 100s to 120s an EKG shows a sinus tachycardia with ST T-wave abnormalities in the lateral leads. Labs were significant for a troponin of 0.235, proBNP greater than 30,000, BUN 43, creatinine 1.95, WBC count 12.2. He tested negative for influenza, COVID, and RSV. chest CTA was negative for pulmonary embolism but did show bibasilar atelectasis versus pneumonia, large bilateral pleural effusions, and trace pericardial effusion as well as bilateral interstitial thickening which may indicate edema versus pneumonitis Acute on chronic combined heart failure Shortness breath, worse with exertion, elevated BMP Chest CT shows large bilateral pleural effusions Patient is on IV Lasix 40 mg b.i.d. IV push Consult paper reel operator for evaluation treatment CXR 06/22 :Likely congestive heart failure with cardiomegaly and mild pulmonary edema.2. Small bilateral pleural effusions with associated basilar atelectasis versus pneumonia. Decrease Lasix to 20 mg b.i.d. IV push per paper reel operator Compensated now, changed to Lasix 40 mg daily p.o. History of CAD Denies chest pain Continue aspirin and Brilinta p.o. Stable Patient denies chest pain Further assessment management per paper reel operator COPD Possible COPD exacerbation due to pneumonia Patient received azithromycin ceftriaxone in the ED Continue the treatment Continue DuoNeb and a boot nebulizer. Start O2 therapy p.r.n. to keep pulse ox above 94 Received methylprednisone IV Completed antibiotics treatment Continue home medication Acute on chronic respiratory failure Possible resulting from CHF, COPD, pleural effusion Patient was on 8 L oxygen upon arrival, now patient is on room air Pneumonia and pleural effusion CT showed Bilateral basilar atelectasis versus pneumonia with bilateral large pleural effusion. Consult pulmonology for evaluation treatment repeat CXR 06/22: Small bilateral pleural effusions with associated basilar atelectasis versus pneumonia. On ceftriaxone and doxycycline IV since 06/19, increased ceftriaxone to 2 g IV daily leukocytosis is worse changed to augmentin and doxy po 06/23 Completed antibiotics treatment Type 2 diabetes Initiate sliding scale insulin, Accu-Cheks, and hypoglycemic protocol. Continue home medication glipizide, continue aspart sliding scale a.c. q.h.s. per protocol CKD stage 4 BUN creatinine elevated, but on the baseline Avoid nephrotoxic medication Follow-up BMP Follow-up urinalysis: No pyuria Kidney function stable Uncontrolled Essential hypertension Amlodipine 10 mg daily p.o., hydrochlorothiazide 25 mg b.i.d. p.o. per paper reel operator Blood pressure is controlled Subjective Date/time seen: 06/24/24 08:30 Interval history: Saw and examined patient today., patient is afebrile, blood pressure stable, patient is on room air, pulse ox 95-99% on room air. Patient denies dyspnea at rest, exercise tolerance increased. Patient denies abdomen pain chest pain nausea vomiting dysuria. Labs reviewed. Exam Narrative: GENERAL: Pleasant, in no acute distress. Well-nourished. - EYES: EOMI. Anicteric. - HENT: Moist mucous membranes. - LUNGS: Clear to auscultation bilaterally, no wheezing, rhonchi, or rales. - CARDIOVASCULAR: Regular rate and rhythm. No murmur. No JVD. - ABDOMEN: Soft, non-tender and non-distended. No palpable masses. - EXTREMITIES: No edema. Peripheral pulses 2+. Non-tender. - NEUROLOGIC: No focal neurological deficits. CN II-XII grossly intact. - PSYCHIATRIC: Awake, Alert and oriented x 3. Appropriate mood and affect. - SKIN: No rashes or lesions. Warm. - LYMPH: No cervical lymphadenopathy. Objective Data Vital Signs Vital Signs: Vital Signs - 24 hr 06/23/24 08:42 06/23/24 12:00 06/23/24 15:52 Temperature 98.2 F Pulse Rate 70 83 58 L Respiratory Rate 14 12 Blood Pressure 164/70 H 150/60 H Pulse Oximetry 99 96 Oxygen Delivery 06/23/24 20:00 06/23/24 20:20 06/23/24 20:22 Temperature 98.7 F Pulse Rate 87 76 76 Respiratory Rate 18 18 Blood Pressure 149/63 H Pulse Oximetry 99 99 Oxygen Delivery Room Air 06/23/24 23:47 06/24/24 04:00 Temperature 98.4 F 98.1 F Pulse Rate 81 83 Respiratory Rate 18 16 Blood Pressure 156/78 H 153/76 H Pulse Oximetry 96 99 Oxygen Delivery Intake/Output Intake/Output: Intake & Output 06/21/24 06/22/24 06/23/24 06/24/24 23:59 23:59 23:59 23:59 Intake Total 1310 2000 1770 100 Output Total 800 1050 900 Balance 510 950 870 100 Meds/Results Medications: Active Medications Generic Name Dose Route Start Last Admin Trade Name Freq PRN Reason Stop Dose Admin Acetaminophen 650 mg 06/19/24 14:15 Acetaminophen 325 Mg Tablet PO Q4H PRN Mild Pain (1-3) or Fever Albuterol 1.25 mg 06/19/24 18:43 06/22/24 11:06 Albuterol Sulfate Neb 2.5 Mg/3 Ml Inh INHALATION 1.25 mg Q4-6H PRN Administration shortness of breath or wheezing Amlodipine Besylate 10 mg 06/24/24 09:00 Amlodipine Besylate 10 Mg Tablet PO DAILY TOM Aspirin 81 mg 06/20/24 09:00 06/23/24 08:43 Aspirin 81 Mg Enteric Tablet PO 81 mg DAILY TOM Administration Atorvastatin Calcium 40 mg 06/19/24 18:45 06/23/24 17:13 Atorvastatin 40 Mg Tablet PO 40 mg QPM TOM Administration Clonazepam 0.5 mg 06/19/24 18:32 06/21/24 20:35 Clonazepam (*Crx) 0.5 Mg Tablet PO 0.5 mg Q12H PRN Administration anxiety Dextrose 12.5 gm 06/19/24 16:31 Dextrose 50% 25 Gm/50 Ml Syringe IV PUSH PRN PRN Hypoglycemia Protocol Empagliflozin 25 mg 06/20/24 09:00 06/23/24 08:42 Empagliflozin 25 Mg Tablet PO 25 mg QAM TOM Administration Fluticasone Propionate 1 spray 06/20/24 09:00 06/23/24 20:23 Fluticasone Propionate 0.05% Na Spr 16 Gm Btl (*Bkc) NASAL 1 spray Q12HR TOM Administration Furosemide 20 mg 06/23/24 09:00 06/23/24 20:39 Furosemide Inj 40 Mg/4 Ml Vial IV PUSH 20 mg Q12HR TOM Administration Glipizide 5 mg 06/20/24 09:00 06/23/24 08:42 Glipizide 5 Mg Tablet PO 5 mg DAILY TMO Administration Glucagon 1 mg 06/19/24 16:31 Glucagon For Inj 1 Mg Vial IM PRN PRN Hypoglycemia Protocol Glucose 15 gm 06/19/24 16:31 Glucose Oral Gel 15 Gm Of Glucse In 37.5 Gm Tube PO PRN PRN Hypoglycemia Protocol Hydralazine HCl 25 mg 06/24/24 09:00 Hydralazine Hcl 25 Mg Tablet PO BID [facility] Dextrose 1,000 mls @ 100 mls/hr 06/19/24 16:31 Dextrose 5% 1,000 Ml IVPB PRN PRN Hypoglycemia Protocol Insulin Aspart 2 - 5 units 06/19/24 17:00 06/23/24 17:13 Insulin Aspart (*Bkc) 100 Units/Ml SUB-Q 4 units TIDWM TOM Administration Protocol Insulin Aspart 1 - 2 units 06/19/24 21:00 06/23/24 21:16 Insulin Aspart (*Bkc) 100 Units/Ml SUB-Q Not Given HS [facility] Protocol Isosorbide Dinitrate 20 mg 06/19/24 19:50 06/23/24 17:13 Isosorbide Dinitrate 20 Mg Tablet PO 20 mg BID [facility] Administration Metoprolol Succinate 25 mg 06/19/24 21:00 06/23/24 20:22 Metoprolol Succinate Ext Rel 25 Mg Tabcr PO 25 mg Q12H [facility] Administration Ondansetron HCl 4 mg 06/20/24 15:53 06/20/24 16:00 Ondansetron Inj 4 Mg/2 Ml Vial IV PUSH 4 mg Q6H PRN Administration Nausea And Vomiting Pantoprazole Sodium 40 mg 06/20/24 09:00 06/23/24 08:42 Pantoprazole 40 Mg Tablet PO 40 mg DAILY [facility] Administration Senna/Docusate Sodium 2 tab 06/19/24 18:32 Senna/Docusate Sodium Tablet PO DAILY PRN constipation Tamsulosin HCl 0.4 mg 06/20/24 09:00 06/23/24 08:42 Tamsulosin Hcl 0.4 Mg Capsule PO 0.4 mg DAILY [facility] Administration Ticagrelor 90 mg 06/19/24 21:00 06/23/24 20:22 Ticagrelor 90 Mg Tablet PO 90 mg Q12H [facility] Administration Vitamin D 2,000 units 06/19/24 21:00 06/23/24 20:22 Cholecalciferol 1,000 Units Tablet PO 2,000 units HS [facility] Administration Radiology Results: ITS Impressions Chest CTA 06/19/24 13:21 IMPRESSION: 1. No pulmonary embolism. 2. Bilateral basilar atelectasis versus pneumonia with bilateral large pleural effusion. 3. Trace of pericardial effusion with cardiomegaly. 4. Bilateral interstitial thickening which may indicate edema versus pneumonitis. Chest X-Ray 06/22/24 09:25 IMPRESSION: 1. Likely congestive heart failure with cardiomegaly and mild pulmonary edema. 2. Small bilateral pleural effusions with associated basilar atelectasis versus pneumonia. Labs Labs: Laboratory Results - last 24 hr 06/23/24 06/23/24 06/23/24 11:49 16:57 20:37 POC Capillary Glucose 237 H 306 H 134 H 06/24/24 08:22 POC Capillary Glucose 173 H
--- NOTE | 2024-06-24 08:31 | P.PNCA_ITS ---
Progress Note: A&P Assessment and Plan (1) Combined systolic and diastolic cardiac dysfunction: Code(s): I51.89 - Other ill-defined heart diseases Status: Acute Assessment and Plan: Appears euvolemic now. Acute on chronic. Restrict fluid intake 1.5 l/day. Stop IV Lasix and start Lasix to 40 mg PO daily. (2) Pneumonia: Code(s): J18.9 - Pneumonia, unspecified organism Status: Acute Assessment and Plan: On antibiotics as per hospitalist. (3) Chronic kidney disease, stage 4 (severe): Code(s): N18.4 - Chronic kidney disease, stage 4 (severe) Status: Chronic Assessment and Plan: Monitor with diuresis. (4) Coronary artery disease: Code(s): I25.10 - Atherosclerotic heart disease of [place] coronary artery without angina pectoris Status: Acute Assessment and Plan: On dual antiplatelets and continue that for additional 3 months given stents in LM and LCx. (5) Hyperlipidemia: Code(s): E78.5 - Hyperlipidemia, unspecified Status: Acute Assessment and Plan: On Atorvastatin. (6) Elevated troponin: Code(s): R79.89 - Other specified abnormal findings of blood chemistry Status: Acute Assessment and Plan: Moderate but flat elevation at 0.235. Doubt ACS as no chest pain. Probably due to CHF and pneumonia in setting of CKD. (7) Hypertension: Qualifiers: Hypertension type: secondary to other renal disorders Qualified Code(s): I15.1 - Hypertension secondary to other renal disorders Code(s): I10 - Essential (primary) hypertension Status: Chronic Assessment and Plan: High. Increase Amlodipine 10 mg daily and start Hydralazine 25 mg BID. If SBP<150 may d/c home from cardiology standpoint and f/u with me in 1 week. Subjective Date/time seen: 06/24/24 08:31 Interval history: Denies chest pain or sob. He wants to go home. Exam Const: General: cooperative, healthy appearing and comfortable Orientation/consciousness: oriented to person, oriented to place and oriented to time Resp: Auscultation: clear to auscultation bilaterally, no wheezes and diminished lung sounds Cardio: Rate: regular rate Rhythm: regular rhythm Heart sounds: Murmur heart sound present (I/ systolic murmur RICS) Peripheral pulses: dorsalis pedis present Neuro: General: oriented to person, oriented to place and oriented to time Extrem: Right lower extremity: no edema Left lower extremity: no edema Objective Data Vital Signs Vital Signs: Vital Signs - 24 hr 06/23/24 08:42 06/23/24 12:00 06/23/24 15:52 Temperature 98.2 F Pulse Rate 70 83 58 L Respiratory Rate 14 12 Blood Pressure 164/70 H 150/60 H Pulse Oximetry 99 96 Oxygen Delivery 06/23/24 20:00 06/23/24 20:20 06/23/24 20:22 Temperature 98.7 F Pulse Rate 87 76 76 Respiratory Rate 18 18 Blood Pressure 149/63 H Pulse Oximetry 99 99 Oxygen Delivery Room Air 06/23/24 23:47 06/24/24 04:00 Temperature 98.4 F 98.1 F Pulse Rate 81 83 Respiratory Rate 18 16 Blood Pressure 156/78 H 153/76 H Pulse Oximetry 96 99 Oxygen Delivery Intake/Output Intake/Output: Intake & Output 06/21/24 06/22/24 06/23/24 06/24/24 23:59 23:59 23:59 23:59 Intake Total 1310 2000 1770 100 Output Total 800 1050 900 Balance 510 950 870 100 Meds/Results Medications: Active Medications Generic Name Dose Route Start Last Admin Trade Name Freq PRN Reason Stop Dose Admin Acetaminophen 650 mg 06/19/24 14:15 Acetaminophen 325 Mg Tablet PO Q4H PRN Mild Pain (1-3) or Fever Albuterol 1.25 mg 06/19/24 18:43 06/22/24 11:06 Albuterol Sulfate Neb 2.5 Mg/3 Ml Inh INHALATION 1.25 mg Q4-6H PRN Administration shortness of breath or wheezing Amlodipine Besylate 10 mg 06/24/24 09:00 Amlodipine Besylate 10 Mg Tablet PO DAILY TOM Aspirin 81 mg 06/20/24 09:00 06/23/24 08:43 Aspirin 81 Mg Enteric Tablet PO 81 mg DAILY TOM Administration Atorvastatin Calcium 40 mg 06/19/24 18:45 06/23/24 17:13 Atorvastatin 40 Mg Tablet PO 40 mg QPM TOM Administration Clonazepam 0.5 mg 06/19/24 18:32 06/21/24 20:35 Clonazepam (*Crx) 0.5 Mg Tablet PO 0.5 mg Q12H PRN Administration anxiety Dextrose 12.5 gm 06/19/24 16:31 Dextrose 50% 25 Gm/50 Ml Syringe IV PUSH PRN PRN Hypoglycemia Protocol Empagliflozin 25 mg 06/20/24 09:00 06/23/24 08:42 Empagliflozin 25 Mg Tablet PO 25 mg QAM TOM Administration Fluticasone Propionate 1 spray 06/20/24 09:00 06/23/24 20:23 Fluticasone Propionate 0.05% Na Spr 16 Gm Btl (*Bkc) NASAL 1 spray Q12HR TOM Administration Glipizide 5 mg 06/20/24 09:00 06/23/24 08:42 Glipizide 5 Mg Tablet PO 5 mg DAILY TOM Administration Glucagon 1 mg 06/19/24 16:31 Glucagon For Inj 1 Mg Vial IM PRN PRN Hypoglycemia Protocol Glucose 15 gm 06/19/24 16:31 Glucose Oral Gel 15 Gm Of Glucse In 37.5 Gm Tube PO PRN PRN Hypoglycemia Protocol Hydralazine HCl 25 mg 06/24/24 09:00 Hydralazine Hcl 25 Mg Tablet PO BID TOM Dextrose 1,000 mls @ 100 mls/hr 06/19/24 16:31 Dextrose 5% 1,000 Ml IVPB PRN PRN Hypoglycemia Protocol Insulin Aspart 2 - 5 units 06/19/24 17:00 06/23/24 17:13 Insulin Aspart (*Bkc) 100 Units/Ml SUB-Q 4 units TIDWM TOM Administration Protocol Insulin Aspart 1 - 2 units 06/19/24 21:00 06/23/24 21:16 Insulin Aspart (*Bkc) 100 Units/Ml SUB-Q Not Given HS [facility] Protocol Isosorbide Dinitrate 20 mg 06/19/24 19:50 06/23/24 17:13 Isosorbide Dinitrate 20 Mg Tablet PO 20 mg BID TOM Administration Metoprolol Succinate 25 mg 06/19/24 21:00 06/23/24 20:22 Metoprolol Succinate Ext Rel 25 Mg Tabcr PO 25 mg Q12H TOM Administration Ondansetron HCl 4 mg 06/20/24 15:53 06/20/24 16:00 Ondansetron Inj 4 Mg/2 Ml Vial IV PUSH 4 mg Q6H PRN Administration Nausea And Vomiting Pantoprazole Sodium 40 mg 06/20/24 09:00 06/23/24 08:42 Pantoprazole 40 Mg Tablet PO 40 mg DAILY TOM Administration Senna/Docusate Sodium 2 tab 06/19/24 18:32 Senna/Docusate Sodium Tablet PO DAILY PRN constipation Tamsulosin HCl 0.4 mg 06/20/24 09:00 06/23/24 08:42 Tamsulosin Hcl 0.4 Mg Capsule PO 0.4 mg DAILY TOM Administration Ticagrelor 90 mg 06/19/24 21:00 06/23/24 20:22 Ticagrelor 90 Mg Tablet PO 90 mg Q12H TOM Administration Vitamin D 2,000 units 06/19/24 21:00 06/23/24 20:22 Cholecalciferol 1,000 Units Tablet PO 2,000 units HS TOM Administration Radiology Results: ITS Impressions Chest CTA 06/19/24 13:21 IMPRESSION: 1. No pulmonary embolism. 2. Bilateral basilar atelectasis versus pneumonia with bilateral large pleural effusion. 3. Trace of pericardial effusion with cardiomegaly. 4. Bilateral interstitial thickening which may indicate edema versus pneumonitis. Chest X-Ray 06/22/24 09:25 IMPRESSION: 1. Likely congestive heart failure with cardiomegaly and mild pulmonary edema. 2. Small bilateral pleural effusions with associated basilar atelectasis versus pneumonia. Labs Labs: Laboratory Results - last 24 hr 06/23/24 06/23/24 06/23/24 11:49 16:57 20:37 POC Capillary Glucose 237 H 306 H 134 H 06/24/24 08:22 POC Capillary Glucose 173 H
[2024-06-24 08:52] VITALS: PULSE 80
[2024-06-24] MEDS: EMPAGLIFLOZIN 25 MG TABLET PO (08:52)
[2024-06-24] MEDS: TICAGRELOR 90 MG TABLET PO (08:52)
[2024-06-24] MEDS: METOPROLOL SUCCINATE EXT REL 25 MG TABCR PO (08:52)
[2024-06-24] MEDS: ASPIRIN 81 MG ENTERIC TABLET PO (08:52)
[2024-06-24] MEDS: TAMSULOSIN HCL 0.4 MG CAPSULE PO (08:52)
[2024-06-24] MEDS: ISOSORBIDE DINITRATE 20 MG TABLET PO (08:52)
[2024-06-24] MEDS: PANTOPRAZOLE 40 MG TABLET PO (08:52)
[2024-06-24] MEDS: glipiZIDE 5 MG TABLET PO (08:52)
[2024-06-24] MEDS: FLUTICASONE PROPIONATE 0.05% NA SPR 16 GM BTL (*BKC) 1 SPRAY NASAL (08:53)
[2024-06-24] MEDS: hydrALAZINE HCL 25 MG TABLET PO (08:56)
[2024-06-24] MEDS: amLODIPine BESYLATE 10 MG TABLET PO (08:56)
[2024-06-24] MEDS: FUROSEMIDE 40 MG TABLET PO (08:56)
[2024-06-24 09:00] LABS: Basophils Absolute Auto 0.1 K/mm3 (0.0-0.1); Basophils Percent Auto 0.7 % (0.2-1.2); Eosinophils Absolute Auto 0.2 K/mm3 (0-0.3); Eosinophils Percent Auto 1.8 % (0-4.4); Hematocrit 42.5 % (42.0-52.0); Hemoglobin 13.6 g/dL (14.0-18.0); Immature Granulocyte Absolute 0.14 K/mm3 (0.00-0.031); Immature Granulocyte Percent A 1.1 % (0-0.5); Lymphocytes Absolute Auto 0.63 K/mm3 (0.9-3.2); Lymphocytes Percent Auto 5.1 % (18.3-44.2); Mean Corpuscular Hemoglobin 28.8 pg (26-34); Mean Corpuscular Volume 89.9 fl (80-100); Mean Platelet Volume 10.4 fl (7.4-10.4); Monocytes Percent Auto 7.9 % (2.6-8.5); Neutrophils Absolute Auto 10.3 K/mm3 (1.3-6.7); Neutrophils Percent Auto 83.4 % (45.5-73.1); Platelet Count Result 344 k/mm3 (150-375); Red Blood Count 4.73 M/mm3 (4.6-6.20); Red Cell Distribution Width 14.3 % (11.5-14.5); White Blood Count 12.4 K/mm3 (4.5-10.0)
[2024-06-24 09:12] LABS: Anion Gap 9 mmol/L (4-12); Blood Urea Nitrogen 59 mg/dL (9-20); Calcium 9.2 mg/dL (8.4-10.2); Carbon Dioxide 38 mmol/L (22-30); Chloride 90 mmol/L (98-107); Estimated CRCL calculation 18 ml/min; Estimated Glomerular Filt Rate 29; Glucose 170 mg/dL (65-110); Magnesium 1.9 mg/dL (1.6-2.3); Potassium 4.1 mmol/L (3.4-5.0); Sodium 137 mmol/L (137-145)
[2024-06-24 12:00] VITALS: BP 145/79; PULSE 92; RESP 20; TEMP 36.4; O2SAT 100
[2024-06-24 13:01] LABS: Glucose Point of Care 319 mg/dl (65-105)
--- NOTE | 2024-06-24 13:08 | PM.DS ---
DS: Admitting Diagnosis Discharge Date 06/24/24 Admitting Diagnosis (1) Acute on chronic combined systolic and diastolic heart failure: Code(s): I50.43 - Acute on chronic combined systolic (congestive) and diastolic (congestive) heart failure Status: Acute (2) Acute and chronic respiratory failure with hypoxia: Code(s): J96.21 - Acute and chronic respiratory failure with hypoxia Status: Acute (3) Elevated troponin: Code(s): R79.89 - Other specified abnormal findings of blood chemistry Status: Acute (4) Aortic stenosis: Code(s): I35.0 - Nonrheumatic aortic (valve) stenosis Status: Acute (5) Bilateral pleural effusion: Code(s): J90 - Pleural effusion, not elsewhere classified Status: Acute (6) Chronic obstructive pulmonary disease: Code(s): J44.9 - Chronic obstructive pulmonary disease, unspecified Status: Acute (7) Hypertension: Qualifiers: Hypertension type: secondary to other renal disorders Qualified Code(s): I15.1 - Hypertension secondary to other renal disorders Code(s): I10 - Essential (primary) hypertension Status: Chronic (8) Type 2 diabetes mellitus: DS: Discharge Diagnosis Discharge Diagnosis (1) Acute on chronic combined systolic and diastolic heart failure: Code(s): I50.43 - Acute on chronic combined systolic (congestive) and diastolic (congestive) heart failure Status: Acute (2) Acute and chronic respiratory failure with hypoxia: Code(s): J96.21 - Acute and chronic respiratory failure with hypoxia Status: Acute (3) Elevated troponin: Code(s): R79.89 - Other specified abnormal findings of blood chemistry Status: Acute (4) Aortic stenosis: Code(s): I35.0 - Nonrheumatic aortic (valve) stenosis Status: Acute (5) Bilateral pleural effusion: Code(s): J90 - Pleural effusion, not elsewhere classified Status: Acute (6) Chronic obstructive pulmonary disease: Code(s): J44.9 - Chronic obstructive pulmonary disease, unspecified Status: Acute (7) Hypertension: Qualifiers: Hypertension type: secondary to other renal disorders Qualified Code(s): I15.1 - Hypertension secondary to other renal disorders Code(s): I10 - Essential (primary) hypertension Status: Chronic (8) Type 2 diabetes mellitus: Qualifiers: Diabetes mellitus senior care insulin use: without senior care use Diabetes mellitus complication status: with kidney complications Diabetes mellitus complication detail: with chronic kidney disease Chronic kidney disease stage: stage 4 (severe) Qualified Code(s): E11.22 - Type 2 diabetes mellitus with diabetic chronic kidney disease; N18.4 - Chronic kidney disease, stage 4 (severe) Code(s): E11.9 - Type 2 diabetes mellitus without complications Status: Chronic (9) Chronic kidney disease, stage 4 (severe): Code(s): N18.4 - Chronic kidney disease, stage 4 (severe) Status: Chronic (10) CHF exacerbation: Qualifiers: Heart failure type: systolic Qualified Code(s): I50.23 - Acute on chronic systolic (congestive) heart failure Code(s): I50.9 - Heart failure, unspecified Status: Acute DS: Summary Hospital Course Hospital Course: 79 years old gentleman with history of CAD, combined CHF, GERD, type 2 diabetes, PVD, COPD, chronic respiratory failure with O2 home therapy, BPH, brought to ED by EMS because of shortness breath. Patient also has Raynaud's and nonproductive cough. Patient was found have hypoxemia in the ED,SpO2 in the mid 90s on 5 L. Heart rate has been in the low 100s to 120s an EKG shows a sinus tachycardia with ST T-wave abnormalities in the lateral leads. Labs were significant for a troponin of 0.235, proBNP greater than 30,000, BUN 43, creatinine 1.95, WBC count 12.2. He tested negative for influenza, COVID, and RSV. chest CTA was negative for pulmonary embolism but did show bibasilar atelectasis versus pneumonia, large bilateral pleural effusions, and trace pericardial effusion as well as bilateral interstitial thickening which may indicate edema versus pneumonitis The following med issues have been addressed during hospitalization Acute on chronic combined heart failure Shortness breath, worse with exertion, elevated BMP Chest CT shows large bilateral pleural effusions Patient is on IV Lasix 40 mg b.i.d. IV push Consult oil house attendant for evaluation treatment CXR 06/22 :Likely congestive heart failure with cardiomegaly and mild pulmonary edema.2. Small bilateral pleural effusions with associated basilar atelectasis versus pneumonia. Decrease Lasix to 20 mg b.i.d. IV push per oil house attendant Compensated now, changed to Lasix 40 mg daily p.o. History of CAD Denies chest pain Continue aspirin and Brilinta p.o. Stable Patient denies chest pain Further assessment management per oil house attendant COPD Possible COPD exacerbation due to pneumonia Patient received azithromycin ceftriaxone in the ED Continue the treatment Continue DuoNeb and a boot nebulizer. Start O2 therapy p.r.n. to keep pulse ox above 94 Received methylprednisone IV Completed antibiotics treatment Continue home medication Acute on chronic respiratory failure Possible resulting from CHF, COPD, pleural effusion Patient was on 8 L oxygen upon arrival, now patient is on room air Pneumonia and pleural effusion CT showed Bilateral basilar atelectasis versus pneumonia with bilateral large pleural effusion. Consult pulmonology for evaluation treatment repeat CXR 06/22: Small bilateral pleural effusions with associated basilar atelectasis versus pneumonia. On ceftriaxone and doxycycline IV since 06/19, increased ceftriaxone to 2 g IV daily leukocytosis is worse changed to augmentin and doxy po 06/23 Completed antibiotics treatment Type 2 diabetes Initiate sliding scale insulin, Accu-Cheks, and hypoglycemic protocol. Continue home medication glipizide, continue aspart sliding scale a.c. q.h.s. per protocol CKD stage 4 BUN creatinine elevated, but on the baseline Avoid nephrotoxic medication Follow-up BMP Follow-up urinalysis: No pyuria Kidney function stable Uncontrolled Essential hypertension Amlodipine 10 mg daily p.o., hydrochlorothiazide 25 mg b.i.d. p.o. per oil house attendant Blood pressure is controlled Time Spent with Patient Time attestation: Total time spent providing and/or coordinating discharge services: Exam Narrative: GENERAL: Pleasant, in no acute distress. Well-nourished. - EYES: EOMI. Anicteric. - HENT: Moist mucous membranes. - LUNGS: Clear to auscultation bilaterally, no wheezing, rhonchi, or rales. - CARDIOVASCULAR: Regular rate and rhythm. No murmur. No JVD. - ABDOMEN: Soft, non-tender and non-distended. No palpable masses. - EXTREMITIES: No edema. Peripheral pulses 2+. Non-tender. - NEUROLOGIC: No focal neurological deficits. CN II-XII grossly intact. - PSYCHIATRIC: Awake, Alert and oriented x 3. Appropriate mood and affect. - SKIN: No rashes or lesions. Warm. - LYMPH: No cervical lymphadenopathy. DS: Data Data Completed and Pending Labs on day of discharge: Labs from last 24 hours 06/24/24 06/24/24 06/24/24 12:28 08:52 08:52 WBC 12.4 H RBC 4.73 Hgb 13.6 L Hct 42.5 MCV 89.9 MCH 28.8 MCHC 32.0 RDW 14.3 Plt Count 344 MPV 10.4 Immature Gran % (Auto) 1.1 H Neut % (Auto) 83.4 H Lymph % (Auto) 5.1 L [place] % (Auto) 7.9 Eos % (Auto) 1.8 Baso % (Auto) 0.7 Lymph # (Auto) 0.63 L [place] # (Auto) 1.0 H Eos # (Auto) 0.2 Baso # (Auto) 0.1 Abs Immat Gran (auto) 0.14 H Absolute Neuts (auto) 10.3 H Absolute Nucleated RBC 0.000 Nucleated RBC % 0.0 Sodium 137 Potassium 4.1 Chloride 90 L Carbon Dioxide 38 H Anion Gap 9 BUN 59 H Creatinine 2.20 H Estim Creat Clear Calc 18 Estimated GFR 29 L Glucose 170 H POC Capillary Glucose 319 H Calcium 9.2 Magnesium Cancelled 1.9 06/24/24 06/23/24 06/23/24 08:22 20:37 16:57 WBC RBC Hgb Hct MCV MCH MCHC RDW Plt Count MPV Immature Gran % (Auto) Neut % (Auto) Lymph % (Auto) [place] % (Auto) Eos % (Auto) Baso % (Auto) Lymph # (Auto) [place] # (Auto) Eos # (Auto) Baso # (Auto) Abs Immat Gran (auto) Absolute Neuts (auto) Absolute Nucleated RBC Nucleated RBC % Sodium Potassium Chloride Carbon Dioxide Anion Gap BUN Creatinine Estim Creat Clear Calc Estimated GFR Glucose POC Capillary Glucose 173 H 134 H 306 H Calcium Magnesium Preliminary micro results at discharge 06/19/24 11:58 Blood Culture - Preliminary Blood 06/19/24 11:58 Blood Culture - Preliminary Blood Discharge Plan Discharge Attending physician on discharge: Mike Kim Consulting providers: Kevin Armijo; Nina Pineda Discharging Clinician: Mike Kim Anticipated Discharge Date/Time: 06/24/24 12:55 Patient Disposition: Home Health Service Activity: as tolerated Diet: as tolerated and heart healthy Discharge Instructions: Per Care Coordination, patient to discharge with [facility] ([phone]) for PT/OT and care home. Agency will call to arrange initial visit. Patient Instructions: Antibiotic Form, Heart Failure (DC) Patient Language: Hebrew Stand Alone Forms: General Discharge Information Follow-up/Referrals: Kevin Armijo DO [Physician] - (Patient needs to see oil house attendant at scheduled appointment) Ace Tavares DO [Primary Care Provider] - (See PCP in 1 week) Discharge Medications: New insulin aspart U-100 [Novolog U-100 Insulin aspart] 100 unit/mL Solution 1 - 2 unit subcut HS Qty: 10 0RF Protocol: Insulin Corrective Low-Dose Condition: glucose < 70 mg/dl Dose/Route: Follow Hypoglycemia Order Condition: glucose 70-200 mg/dl Dose/Route: No additional insulin Condition: glucose 201-250 mg/dl Dose/Route: 1 units sub-Q Condition: glucose 251-300 mg/dl Dose/Route: 1 units sub-Q Condition: glucose 301-350 mg/dl Dose/Route: 2 units sub-Q Condition: glucose 351-400 mg/dl Dose/Route: 2 units sub-Q Condition: glucose > 400 mg/dl Dose/Route: Call insulin aspart U-100 [Novolog U-100 Insulin aspart] 100 unit/mL Solution 2 - 5 unit subcut TIDWM Qty: 10 0RF Protocol: Insulin Corrective Low-Dose Condition: glucose < 70 mg/dl Dose/Route: Follow Hypoglycemia Order Condition: glucose 70-200 mg/dl Dose/Route: No additional insulin Condition: glucose 201-250 mg/dl Dose/Route: 2 units sub-Q Condition: glucose 251-300 mg/dl Dose/Route: 3 units sub-Q Condition: glucose 301-350 mg/dl Dose/Route: 4 units sub-Q Condition: glucose 351-400 mg/dl Dose/Route: 5 units sub-Q Condition: glucose > 400 mg/dl Dose/Route: Call Protocol Text: *No Correction Dose at Bedtime* amlodipine 10 mg Tablet 10 mg PO DAILY Qty: 30 1RF hydralazine 25 mg Tablet 25 mg PO BID Qty: 60 1RF furosemide 40 mg Tablet 40 mg PO DAILY Qty: 60 0RF Continued aspirin [Adult Low Dose Aspirin] 81 mg tablet,delayed release (DR/EC) 81 mg PO DAILY cholecalciferol (vitamin D3) 50 mcg (2,000 unit) capsule 50 mcg PO HS albuterol sulfate 1.25 mg/3 mL solution for nebulization 1.25 mg inhalation Q4-6H PRN (Reason: shortness of breath or wheezing) Qty: 90 2RF albuterol sulfate 90 mcg/actuation HFA aerosol inhaler 2 puff INHALATION TID PRN (Reason: Shortness Of Breath Or Wheezing) clonazepam 0.5 mg tablet 0.5 mg PO Q12H PRN (Reason: anxiety) sennosides-docusate sodium [Stimulant Laxative Plus] 8.6-50 mg tablet 2 tab-cap PO DAILY PRN (Reason: constipation) (DME) Accu-Chek Flory Plus test strp Strip See Rx Instructions .ROUTE .MEDSUPPLY Qty: 100 4RF Rx Instructions: Use to check BS BID ticagrelor 90 mg tablet 90 mg PO Q12H Qty: 60 4RF Jardiance 25 mg tablet 25 mg PO QAM Qty: 30 6RF atorvastatin 40 mg tablet 40 mg PO QPM Qty: 90 1RF glipizide 5 mg tablet 5 mg PO DAILY Qty: 90 0RF tamsulosin 0.4 mg capsule 0.4 mg PO DAILY Qty: 90 1RF pantoprazole 40 mg tablet,delayed release (DR/EC) 40 mg PO DAILY Qty: 90 1RF metoprolol succinate [Toprol XL] 25 mg tablet extended release 24 hr 25 mg PO Q12H Qty: 180 1RF isosorbide mononitrate 20 mg tablet See Rx Instructions .ROUTE .COMPLEX Qty: 180 0RF Dose Instruction: TAKE 1 TABLET BY MOUTH TWICE A DAY -GIVE DOSES 7 HOURS APART Rx Instructions: TAKE 1 TABLET BY MOUTH TWICE A DAY -GIVE DOSES 7 HOURS APART Discontinued furosemide 20 mg tablet 20 mg PO QAM Qty: 90 3RF Date of admission: 06/19/24 14:15 Primary Care Provider: Ace Tavares Admitting Provider: Mike Kim Attending physician on admission: Mike Kim Condition: Stable
[2024-06-24] MEDS: INSULIN ASPART (*BKC) 100 UNITS/ML SUB-Q (13:14)
== END 2024-06-24 13:50 | disposition home health service (06) | DRG 193 ==
LOC: ANHED 14:37 → ANHIMU 15:07 → ANH2MED 06-22 14:59
PROVIDERS: Internal Medicine Cardiovascular Disease; Physician Assistant; Admitting Provider Hospitalist; Emergency Provider Emergency Medicine; PCP Internal Medicine; Visit Provider Hospitalist
DX: J18.9 Pneumonia, unspecified organism (principal); I50.43 Acute on chronic combined systolic (congestive) and diastolic (congestive) heart failure; J96.21 Acute and chronic respiratory failure with hypoxia; I13.0 Hypertensive heart and chronic kidney disease with heart failure and stage 1 through stage 4 chronic kidney disease, or unspecified chronic kidney disease; N18.4 Chronic kidney disease, stage 4 (severe); J44.0 Chronic obstructive pulmonary disease with (acute) lower respiratory infection; J90 Pleural effusion, not elsewhere classified; I35.0 Nonrheumatic aortic (valve) stenosis; I25.10 Atherosclerotic heart disease of native coronary artery without angina pectoris; I70.1 Atherosclerosis of renal artery; I65.23 Occlusion and stenosis of bilateral carotid arteries; E11.22 Type 2 diabetes mellitus with diabetic chronic kidney disease; E11.51 Type 2 diabetes mellitus with diabetic peripheral angiopathy without gangrene; E78.5 Hyperlipidemia, unspecified; R79.89 Other specified abnormal findings of blood chemistry; N40.0 Benign prostatic hyperplasia without lower urinary tract symptoms; K21.9 Gastro-esophageal reflux disease without esophagitis; F41.9 Anxiety disorder, unspecified; F32.A Depression, unspecified; Z20.822 Contact with and (suspected) exposure to COVID-19; I25.2 Old myocardial infarction; Z95.5 Presence of coronary angioplasty implant and graft; Z86.718 Personal history of other venous thrombosis and embolism; Z99.81 Dependence on supplemental oxygen; Z79.82 Long term (current) use of aspirin; Z87.891 Personal history of nicotine dependence
CPT/HCPCS: 36415; 36600; 71045; 71046; 71275; 80048; 80053; 81001; 82805; 82948; 83605; 83735; 83880; 84132; 84145; 84443; 84484; 85018; 85025; 85610; 85730; 86140; 87040; 87637; 93005; 94640; 96374; 96375; 97161; 97165; 99285; A9270; J0456; J0696; J1815; J1940; J2405; Q9967

== ENCOUNTER 2024-07-02 22:34 | Inpatient (IN) | payer MEDICARE, SELFPAY ==
--- NOTE | ~2024-07-02 | XR_ITS ---
EXAMINATION: XR chest 1V portable DATE: 07/02/2024 23:30 INDICATION: Shortness of breath. TECHNIQUE: A single frontal view of the chest was obtained. COMPARISON: Chest 2 views 06/22/2024, chest CT 06/19/2024 FINDINGS: There are moderate-sized pleural effusions. There is a diffuse interstitial pattern in the lungs, consistent with mild pulmonary edema. No pneumothorax. Cardiomegaly is noted. IMPRESSION: 1. Worsened mild pulmonary edema. 2. Stable moderate-sized pleural effusions. 3. Cardiomegaly. Reviewed, dictated and finalized at location A. ICAL EDUCATION AIDE
--- NOTE | ~2024-07-02 | XR_ITS ---
XR chest 1V portable 07/04/2024 05:47 Indication: Shortness of breath Procedure: AP portable chest Comparison: 07/02/2024 Findings: Cardiomegaly with persistent pulmonary edema. Bilateral pleural effusions. No pneumothorax. No significant interval change compared with 07/02/2024. No acute osseous abnormality. Impression: 1: Stable chest. Cardiomegaly with pulmonary edema. Reviewed, dictated and finalized at location A. TECH Impression: 1: Stable chest. Cardiomegaly with pulmonary edema.
--- NOTE | ~2024-07-02 | US_ITS ---
EXAMINATION: US retroperitoneal duplex ltd DATE: 07/05/2024 10:01 INDICATION: Renal artery stenosis TECHNIQUE: Multiple grayscale, color Doppler, and pulsed Doppler images of the kidneys and renal shanae broderick were obtained. COMPARISON: None. FINDINGS: There is normal renal contour and echogenicity bilaterally. The right kidney measures 10.0 x 3.9 x 3. 9 cm and the left 8.1 x 3.7 x 3.3 cm. There are no focal renal lesions identified. There is no hydro nephrosis. Arterial waveforms are seen in the region of the mid right renal artery and at the right kidney with peak systolic velocities of 81 cm/s at the former and 25 cm/s at the latter. The waveform in the expe cted location of the proximal right renal artery and at the proximal, mid and distal left renal arter y all demonstrate relatively low velocities with bidirectional flow and twice the number of antegrade peaks as on the right renal artery waveforms suggesting these are either venous waveforms or superim posed arterial and venous waveforms. IMPRESSION: 1. No Doppler evidence of renal artery stenosis in the mid to distal right renal artery. 2. Nondiagnostic evaluation of the left renal artery and proximal right renal artery with the obtaine d waveforms most likely either representing venous waveforms or less likely combined arterial and ihsan ous waveforms. Reviewed, dictated and finalized at location B. DING OPERATOR IMPRESSION: 1. No Doppler evidence of renal artery stenosis in the mid to distal right kathleen al artery. 2. Nondiagnostic evaluation of the left renal artery and proximal right renal a rtery with the obtained waveforms most likely either representing venous wavefo alfredo or less likely combined arterial and venous waveforms.
[2024-07-02 22:37] VITALS: BP 162/80; PULSE 109; RESP 20; TEMP 36.7; O2SAT 95
--- NOTE | 2024-07-02 22:46 | ECG_ITS ---
Test Date: 2024-07-02 22:52:28 Measurements Intervals [place] Rate: 99 P: 66 CA: 129 QRS: 12 QRSD: 109 T: 155 QT: 365 QTc: 469 Interpretive Statements SINUS RHYTHM WITH OCCASIONAL VENTRICULAR PREMATURE COMPLEXES POSSIBLE LEFT ATRIAL ENLARGEMENT [-0.1mV P WAVE IN V1/V2] LEFT VENTRICULAR HYPERTROPHY AND ST-T CHANGE ST DEVIATION AND MODERATE T-WAVE ABNORMALITY, CONSIDER LATERAL ISCHEMIA [-0.1+ mV T WAVE IN I/aVL/V5/V6] Compared to ECG 06/19/2024 10:47:27 Ventricular premature complex(es) now present Electronically Signed On 07-03-2024 16:12:40 CENTRAL SUPPLY TECH by Tiffanie Ponce M.D.
[2024-07-02 22:47] VITALS: O2SAT 97
[2024-07-02 23:11] LABS: Basophils Absolute Auto 0.1 K/mm3 (0.0-0.1); Basophils Percent Auto 0.7 % (0.2-1.2); Eosinophils Absolute Auto 0.1 K/mm3 (0-0.3); Eosinophils Percent Auto 0.9 % (0-4.4); Hematocrit 40.2 % (42.0-52.0); Hemoglobin 12.9 g/dL (14.0-18.0); Immature Granulocyte Absolute 0.14 K/mm3 (0.00-0.031); Immature Granulocyte Percent A 1.2 % (0-0.5); Lymphocytes Absolute Auto 0.79 K/mm3 (0.9-3.2); Lymphocytes Percent Auto 6.9 % (18.3-44.2); Mean Corpuscular HGB Conc 32.1 g/dl (32-36); Mean Corpuscular Hemoglobin 29.3 pg (26-34); Mean Corpuscular Volume 91.4 fl (80-100); Mean Platelet Volume 10.9 fl (7.4-10.4); Monocytes Absolute Auto 0.8 K/mm3 (0.1-0.6); Monocytes Percent Auto 7.1 % (2.6-8.5); Neutrophils Absolute Auto 9.5 K/mm3 (1.3-6.7); Neutrophils Percent Auto 83.2 % (45.5-73.1); Platelet Count Result 292 k/mm3 (150-375); Red Cell Distribution Width 14.7 % (11.5-14.5); White Blood Count 11.5 K/mm3 (4.5-10.0)
--- OUTSIDE RECORDS SUMMARY | 2024-07-02 23:13 | XMS_ITS | Referral Summary ---
Author Organization [facility] at the [facility] Address [address] [place] [address] Care Team Providers Care Graphic Art Sales Representative Name Role Phone Ace Tavares DO Primary Care Provider [phone] Becky Cisneros MD Unavailable [phone] Allergies No known active allergies Medications atorvastatin (LIPITOR) 40 mg tablet 1 tablet (40 mg total) daily Active pantoprazole DR (PROTONIX) 40 mg EC tablet 1 tablet (40 mg total) daily Active aspirin 81 mg chewable tabletIndications:p revention of thrombosis Take 1 tablet by mouth daily 9 Active pen needle, diabetic (Pen Needle) 32 gauge x 5/32 needleIndications:d m2 Use as directed once a day. 100 each 3 Active pen needle, diabetic 32 gauge x 5/32 needle Use as directed 3 times a day. 100 each 3 Active alcohol swabs (Alcohol Wipes) pads, medicated Use as directed. 100 each 3 Active pen needle, diabetic 32 gauge x 5/32 needle Use as directed 3 times a day 100 each 3 Active blood-glucose meter kitIndications:DM2 Use as directed. 1 kit 3 Active lancets miscIndications:dm2 Use as directed up to 3 times a day. 100 each 2 3 Active tamsulosin (FLOMAX) 0.4 mg extended release capsule Take 1 capsule (0.4 mg total) by mouth daily with dinner 4 Active metoprolol XL (TOPROL-XL) 50 mg extended release tablet Take 1 tablet (50 mg total) by mouth daily 30 tablet 4 Active albuterol HFA (PROVENTIL HFA,VENTOLIN HFA,PROAIR HFA) 90 mcg/actuation inhaler Inhale 2 puffs every 6 (six) hours as needed for wheezing 1 each 1 4 Active empagliflozin (JARDIANCE) 10 mg tabletIndications:h eart failure associated with type 2 diabetes mellitus Take 1 tablet (10 mg total) by mouth daily 30 tablet 4 Active furosemide (LASIX) 20 mg tablet Take 1 tablet (20 mg total) by mouth daily 30 tablet 4 Active isosorbide-hydrALAZ INE (BIDIL) 20-37.5 mg per tabletIndications:c hronic heart failure Take 1 tablet by mouth 2 (two) times a day 60 tablet 4 Active linaGLIPtin (TRADJENTA) 5 mg tabletIndications:t ype 2 diabetes mellitus Take 1 tablet (5 mg total) by mouth daily 30 tablet 4 Active senna-docusate (PERICOLACE) 8.6-50 mg Take 2 tablets by mouth 2 (two) times a day 120 tablet 4 Active ticagrelor (BRILINTA) 90 mg tabletIndications:C erebral Thromboembolism Prevention Take 1 tablet (90 mg total) by mouth 2 (two) times a day 60 tablet 4 Active umeclidinium-vilant Yoon (ANORO ELLIPTA) 62.5-25 mcg/actuation blister with deviceIndications:B ronchospasm Prevention with COPD Inhale 1 puff daily 30 each 1 4 Active Active Problems Problem Noted Date Diagnosed Date History of percutaneous coronary intervention Ischemic cardiomyopathy 07/01/2023 Assessment & Plan (07/01/2023 11:59 AM AGRICULTURAL CONSULTANT): LVEF was 45%. Continue metoprolol and Bidil. NSTEMI (non-ST elevated myocardial infarction) ( [facility]) 06/12/2023 Protein-calorie malnutrition, moderate ([facility]) 06/12/2023 Coronary artery disease 05/19/2023 Assessment & Plan (07/01/2023 11:59 AM AGRICULTURAL CONSULTANT): Status post successful complex PCI of the left main LAD and circumflex. The patient is asymptomatic. Continue aspirin and Brilinta. Cardiorenal syndrome 05/17/2023 Chronic kidney disease 05/17/2023 CKD (chronic kidney disease) stage 4, GFR 15-29 ml/min ([facility]) 05/16/2023 Systolic congestive heart failure ([facility]) 05/06 Murmur, heart 05/15/2023 Renal insufficiency 05/15/2023 History of CHF (congestive heart failure) 2022 Dizziness 04/02/2019 Dyslipidemia 04/02/2019 H/O: stroke 04/02/2019 PAOD (peripheral arterial occlusive disease) ([facility]) 04/02/2019 Paroxysmal A-fib ([facility]) 04/02/2019 Essential hypertension 03/19/2019 Assessment & Plan (03/19/2019 10:57 AM CDT): Controlled. Pre-operative clearance 03/19/2019 Assessment & Plan (03/19/2019 10:57 AM CDT): Limited aerobic capacity. 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 After previous workup I have recommended left carotid endarterectomy with patch angioplasty for ongoing stroke prevention in addition to maximal medical therapy. The procedure and all associated risks were again explained including not limited to cranial nerve injury, bleeding, infection, stroke and . Patient understands and now wishes to proceed. Assessment & Plan (03/27/2019 2:32 PM CDT): After review of the patient's carotid duplex MRI and CT angiogram of the carotid arteries which confirms left hemispheric infarcts in addition to greater than 50% stenosis left internal carotid artery and recommended left carotid endarterectomy for future stroke prevention additional ongoing medical therapy. The procedure and all associated risks including not limited to bleeding, infection, nerve injury stroke and were explained. He understands and agrees to proceed. Assessment & Plan (03/01/2019 8:45 AM CDT): Patient has known left internal carotid artery stenosis and chronic occlusion of the right internal carotid artery. Has had recent left hemispheric CVA per report. His workup was performed and institution out of town. Will repeat carotid duplex, CT angiogram and MRI of the brain for more thorough and complete evaluation prior to potential surgical recommendations. Aphasia 02/12/2019 DM2 (diabetes mellitus, type 2) 02/12/2019 Assessment & Plan (04/11/2019 9:46 AM AGRICULTURAL CONSULTANT): Per patient blood glucose levels remain controlled. Continue current regimen per primary care visit Dysarthria 02/12/2019 Elevated serum creatinine 02/12/2019 Expressive aphasia 02/12/2019 Hyperlipemia 02/12/2019 Assessment & Plan (07/01/2023 11:59 AM AGRICULTURAL CONSULTANT): Continue atorvastatin 40 mg daily. Assessment & Plan (04/11/2019 9:46 AM AGRICULTURAL CONSULTANT): For patient cholesterol levels remain controlled. Continue current statin therapy per Cardiology recommendations. Assessment & Plan (03/19/2019 10:56 AM CDT): Agree with statin. Left-sided weakness 02/12/2019 Smoker 02/12/2019 Assessment & Plan (04/11/2019 9:48 AM AGRICULTURAL CONSULTANT): Unfortunately patient continues to smoke. Greater than 3 minutes was spent on smoking cessation counseling in the ongoing ill affects it has on his cardiovascular system and risk for future stroke and poor outcomes. He states he probably will not quit. Assessment & Plan (03/27/2019 2:32 PM CDT): Again greater than 3 minutes was spent on smoking cessation and Education. All modalities were discussed. The ill effects of ongoing smoking on his cardiovascular system and risk factors moving forward were explained. He likely will not quit. Assessment & Plan (03/01/2019 8:46 AM CDT): Greater than 3 minutes was spent discussing the need for smoking cessation. Patient is currently planning on trying a nicotine patch. Hope to be able to quit within 3 months period Atherosclerosis of [place] of both lower extremities with intermittent claudication 11/19/2016 Carotid occlusion, right 11/12/2016 Assessment & Plan (03/27/2019 2:33 PM CDT): Known chronic occlusion of the right internal carotid artery that does not require surgical intervention. Continue ongoing risk factor modification. Assessment & Plan (03/19/2019 10:56 AM CDT): Recommend nuclear stress test before clearance Atherosclerosis of [place] of extremity with intermittent claudication 08/07/2013 Assessment & Plan (03/01/2019 8:46 AM CDT): Stable non disabling lower extremity claudication. No progression to rest pain. Will repeat new baseline arterial studies. Continue exercise and risk factor modification Social History Tobacco Use Types Packs/Day Years Used Date Smoking Tobacco: Former Cigarettes 0.8 53.5 0 10/31/1969 - 05/08/2023 Smokeless Tobacco: Never Tobacco Cessation:Counseling Given: Not Answered OASIS D0700: Social Isolation Answer Da te Recorded Frequency of experiencing loneliness or isolatio n Never 08/25/2023 OASIS A1250: Transportation Answer Date Recorded Lack of Transportation (Medical) No 08/25/2023 Lack of Transportation (Non-Medical) No 08/25/2023 Patient Unable or Declines to Respond No 08/25/2023 OASIS B1300: Health Literacy Answer Joaquin e Recorded Frequency of needing help to read materials from doctor or pharmacy Never 08/25/2023 [facility] Utilities Answer Date Recorded In the past 12 months has th e yavalu, gas, oil, or water [employer] threatened to shut off services in your home? No 06/13/2023 Social Connection and Isolation Panel [NHANES] A nswer Date Recorded In a typical week, how many times do you talk on the phone with family, friends, or neighbors? Once a week 06/13/2023 How often do you get together with friends or re latives? Once a week 06/13/2023 How often do you attend sabianist or congregation serv ices? Never 06/13/2023 Do you belong to any clubs o r organizations such as sabianist groups, unions, fraternal or athletic groups, or school groups? No 06/13/2023 How often do you attend meet ings of the clubs or organizations you belong to? Never 06/13/2023 Are you , , di vorced, , never , or living with a partner? 06/13/2023 AUDIT-C Answer Date Recorded Q1: How often do you have a drink containing alcohol? Never 05/18/2023 Q2: How many drinks containi ng alcohol do you have on a typical day when you are drinking? Patient does not drink Q3: How often do you have si x or more drinks on one occasion? Never 05/18/2023 Overall Financial Resource Strain (CARDIA) Answe r Date Recorded How hard is it for you to pa y for the very basics like food, housing, medical care, and heating? Not hard at all 06/13/2023 Hunger Vital Sign Answer Date Recorded Within the past 12 months, y ou worried that your food would run out before you got the money to buy more. Never true 06/13/19 24 Within the past 12 months, t he food you bought just didn't last and you didn't have money to get more. Never true 06/13/2023 PRAPARE - Transportation Answer Date Re corded In the past 12 months, has l ack of transportation kept you from medical appointments or from getting medications? No 01/2024 In the past 12 months, has l ack of transportation kept you from meetings, work, or from getting things needed for daily living? No 06/13/2023 Housing Stability Vital Sign Answer Joaquin e Recorded In the last 12 months, was t here a time when you were not able to pay the mortgage or rent on time? No 06/13/2023 In the last 12 months, how many places have you lived? 1 06/13/2023 In the last 12 months, was t here a time when you did not have a steady place to sleep or slept in a m[facility]p (including now)? No 06/13/2023 Personal Safety Answer Date Recorded Have you ever been in or are you currently in a harmful physical or emotional relationship or is someone making you feel afraid or unsafe? Denies 06/12/2023 Sex and Gender Information Value Date Recorded Sex Assigned at Not on file Legal Sex Male 10:52 AM AGRICULTURAL CONSULTANT Gender Identity Not on file Sexual Orientation Not on file Last Filed Vital Signs Vital Sign Reading Time Taken Comments Blood Pressure 139/69 08/25/2023 11:16 AM CDT Pulse 90 08/25/2023 11:16 AM CDT Temperature 36.8 ??C (98.2 ??F) 08/25/2023 11:16 AM C DT Respiratory Rate 18 08/25/2023 11:16 AM CDT Oxygen Saturation 99% 08/25/2023 11:16 AM CDT Inhaled Oxygen Concentration - - Weight 59.9 kg (132 lb) 08/01/2023 3:09 PM AGRICULTURAL CONSULTANT Height 167.6 cm (5' 6 ) 08/01/2023 3:09 PM AGRICULTURAL CONSULTANT Body Mass Index 21.31 08/01/2023 3:09 PM AGRICULTURAL CONSULTANT Plan of Treatment Not on file Medical Devices Implanted Type Area Tongue Presser Device Identifier Shelf Expiration Date Model / Serial / Lot Medtronic Card Vasc Surgery 3.5 X 12mm [place] [employer] Rx Coronary Stent [id number] - [id number] Implanted:Qty: 1 on 06/13/2023 by Luke Pablo MD at [facility] Medtronic Card Vasc Surgery 11/09/2025 [id number] / / [id number] Medtronic Card Vas Surgery 3.5 X 12mm [place] [employer] Rx Coronary Stent [id number] - [id number] Implanted:Qty: 1 on 06/13/2023 by Luke Pablo MD at [facility] Medtronic Card Vasc Surgery 02/03/2026 [id number] / / [id number] Medtronic Inc Protege Gps Exprt 9mm .079in 60mm 120cm Otw Delivery System Self - [id number] Implanted:Qty: 1 on 06/13/2023 by Luke Pablo MD at [facility] Medtronic Inc 11/07/2023 [id number] 0-120 / / [id number] Medtronic Inc Everflex Entrust 8mm 60mm 120cm Self Expand Triaxial Low Profile - [id number] Implanted:Qty: 1 on 06/13/2023 by Luke Pablo MD at [facility] Medtronic Inc 01/16/2026 [id number] 0-120 / / [id number] Medtronic Inc Everflex Od7 Mm L30 Mm L120 Cm Self Expand Delivery Catheter System Spiral Cell Peak To Peak Connection Node Peripheral Stent Vascular Accepts .035 In Guidewire 6 Fr Introducer Sheath 5. Implanted:Qty: 1 on 06/13/2023 by Luke Pablo MD at [facility] Med[employer]onic Inc 01/03/2026 [id number] 0-120 / / [id number] Cordis Mynxgrip 6-7fr Balloon Catheter Integrate Sealant Lock Latex Free [id number] - [id number] Implanted:Qty: 1 on 06/13/2023 by Luke Pablo MD at [facility] 08/03/2023 [id number] / / [id number] Procedures Procedure Name Priority Date/Time Associated Diagnosis Comments EGFR Routine 06/19/2023 5:10 AM AGRICULTURAL CONSULTANT HEMOGLOBIN A1C STAT 05/14/2023 5:27 AM AGRICULTURAL CONSULTANT CTA ABDOMINAL AORTA AND BILATERAL ILIOFEMORAL RUNOFF Routine 08/21/2013 2:17 PM CDT from Last 3 Months or Most Recently Relevant to Health Maintenance Results * eGFR (06/19/2023 5:10 AM AGRICULTURAL CONSULTANT) [facility] eGFR 33 mL/min/1. 73 m2 SHERYL DURBIN Comment: Interpretive Data Reference Interval Normal ?>/= 90 mL/min/1.73m2 Mildly decreased* ? 60 - 89 mL/min/1.73m2 Mildly to moderately decreased ?45 - 59 mL/min/1.73m2 Moderately to severely decreased ??30 - 44 mL/min/1.73m2 Severely decreased ?15 - 29 mL/min/1.73m2 Kidney Failure ?< 15 ??mL/min/1.73m2 *Relative to young adult level Estimated glomerular filtration rate is determined by the 2020 CKD-EPI equation recommended by the National Kidney Foundation (A Unifying Approach to GFR Estimation: Recommendations of the NKF-ASK Task Force on Reassessing the Inclusion of Race in Diagnosing Kidney Disease, JASN 2020). The CKD-EPI equation should not be used for patients with unstable renal function and has not been validated in children and those over 70. Current interpretive data was last reviewed 2021. Blood 06/19/2023 5:10 AM AGRICULTURAL CONSULTANT 06/19/2023 5:30 AM AGRICULTURAL CONSULTANT Leatha Hassan DIRECTOR OF CARDIOLOGY SERVICE LINE LAB BLOOD ORDERABLES F inal Result SHERYL [id number] Department [place] [address] * (ABNORMAL) Hemoglobin A1c (05/14/2023 5:27 AM AGRICULTURAL CONSULTANT) Hgb A1C 6.5(H) 4.0 - 5.6 % SHERYL VIVEROS Estimated Average Glucose 140 mg/dL SHERYL VIVEROS Comment: The ADA recommends reporting an estimated Average Glucose (eAG) with all Hemoglobin A1c results using the equation derived from a study of 507 normal and diabetic adults. ??Minority populations were underrepresented and children were not included. ?? (Diabetes Care 31:5557-3672, 2008). ??The eAG is not equivalent to a fasting glucose. Blood 05/14/2023 5:27 AM AGRICULTURAL CONSULTANT 05/14/2023 5:30 AM AGRICULTURAL CONSULTANT us Lc Dunbar MD LAB BLOOD ORDERABLES Final Result SHERYL [address] [facility] Department [place] [address] * CTA Abdominal Aorta And Bilateral Iliofemoral Runoff W WO Contrast (08/21/2013 2:17 PM CDT) Anatomical Region Laterality Modality Body Bilateral Computed Tomogra phy 08/21/2013 2:17 PM CDT Narrative 08/21/2013 4:18 PM CDT OK OLSEN M.D. BECKY SCHAFFER M.D. FINAL REPORT The radiology attending physician has personally reviewed this study, and has reviewed and/or edited this written report and agrees with it. ACC# ??Date Time ??Exam [id number] Aug 21, 2013 14:17:[id number] Angio Abd & AIF wwo con EXAMINATION: ?CT ANGIOGRAPHY OF THE ABDOMEN, PELVIS, AND LOWER EXTREMITIES WITH CONTRAST HISTORY: 68-year-old man with bilateral lower extremity claudication. TECHNIQUE: CT angiography of the abdomen, pelvis, and lower extremities performed following uneventful intravenous administration of 120 ml Optiray-350. Vascular 3D images were generated on a dedicated workstation and also reviewed. FINDINGS: There are no prior examinations available for comparison. VASCULAR FINDINGS: Abdominal Aorta and Branches: Celiac axis: no significant stenosis SMA: Mild atherosclerotic stenosis near the origin. JACKELIN: Occluded at the origin, recannulized distally from SMA branches. Right renal vessels: Moderate atherosclerotic stenosis at the origin. One vessel Left renal vessels: One vessel, no significant stenosis Infrarenal aorta: There are diffuse moderate to severe ulcerated atherosclerotic plaques throughout the descending thoracic and abdominal aorta. The most severe stenosis occurs 2-3 cm above the iliac bifurcation. Pelvic Vessels: R. Common iliac artery: Completely occluded secondary to atherosclerotic plaque. There is reconstitution distal the at the internal/external iliac bifurcation. R. External iliac artery: Diffuse atherosclerotic disease causing moderate to severe stenosis. Focal severe stenosis is located just distal to the bifurcation. R. Internal iliac artery: Diffuse moderate atherosclerotic stenosis. L. Common iliac artery: There is a severe focal stenosis just distal to the bifurcation. There is moderate diffuse atherosclerotic stenosis. L. External iliac artery: The moderate atherosclerotic focal stenosis in the mid segment. L. Internal iliac artery: Moderate atherosclerotic focal stenosis just past the origin to Right Lower Extremity: R. Common femoral artery: Moderate atherosclerotic stenosis. R. Profunda femoris artery: no significant stenosis R. SFA: Moderate diffuse stenosis, the vessel becomes diminutive in the mid thigh and reconstitutes distally secondary to collateral flow. R. Popliteal artery: no significant stenosis R. Anterior tibial artery: No significant stenosis, small caliber from a vessel crosses the ankle to the dorsalis pedis. R. Tibioperoneal trunk: no significant stenosis R. Posterior tibial artery: No significant stenosis. Small vessel caliber, the vessel crosses the ankle becomes plantar artery. R. Peroneal artery: no significant stenosis R. Dorsalis pedis artery: no significant stenosis R. Plantar artery: no significant stenosis Left Lower Extremity: L. Common femoral artery: Moderate diffuse atherosclerotic stenosis L. Profunda femoris artery: no significant stenosis L. SFA: The vessel is completely occluded in the proximal aspect with reconstitution distally secondary to collateral flow. L. Popliteal artery: Moderate diffuse atherosclerotic stenosis L. Anterior tibial artery: Small caliber, no significant stenosis, the vessel crosses the ankle and becomes the dorsalis pedis artery. L. Tibioperoneal trunk: no significant stenosis L. Posterior tibial artery: Small caliber, no significant stenosis, vessel crosses the joint and becomes the plantar artery. L. Peroneal artery: no significant stenosis L. Dorsalis pedis artery: no significant stenosis L. Plantar artery: no significant stenosis NON-VASCULAR FINDINGS: Limited images of the lung bases and heart are normal. There is no free intraperitoneal fluid or gas. ??There is diverticulosis without evidence of diverticulitis. The liver is normal and without focal lesions. There is variable wall thickening and heterogeneous enhancement of the gallbladder near the fundus. No evidence of cholecystitis. The spleen is normal. The pancreas is normal. Adrenal glands are prominent bilaterally. There is no abdominal or pelvic lymphadenopathy.The kidneys, ureters and bladder are normal. Prostate is large. There is multilevel degenerative this disease of the thoracic and lumbar spine. No fractures or suspicious osseous lesions are identified. Right lower extremity musculature and soft tissue is normal. Left lower extremity musculature and soft tissues normal. ?? IMPRESSION: 1. There is diffuse moderate to severe ulcerated atherosclerotic plaque throughout the descending thoracic and abdominal aorta. The most severe stenosis occurs approximately 2-3 cm above the iliac bifurcation. 2. Right lower extremity: The right common iliac artery is completely occluded secondary to atherosclerotic plaque, there is distal reconstitution at the internal/external iliac bifurcation. There is moderate to severe diffuse stenosis of the right internal and external iliac arteries. The right superficial femoral artery becomes diminutive in the mid thigh and reconstitutes distally. There is 3-vessel runoff distally. 3. ??Left lower extremity: There is severe focal left common iliac artery stenosis just distal to the bifurcation and moderate to severe diffuse atherosclerotic stenosis. There is moderate focal stenosis the left external iliac artery in the mid segment. Moderate diffuse stenosis of the left common femoral artery is present, and the left superficial femoral artery is completely occluded at the proximal aspect with distal reconstitution secondary to collateral flow. There is 3-vessel runoff distally. 4. Heterogeneous enhancement with variable wall thickening of the gallbladder body and fundus. This finding may represent adenomyomatosis but a solid soft tissue mass cannot be entirely excluded. Further evaluation with gallbladder ultrasound is recommended. 5. Diverticulosis without diverticulitis. These findings regarding the gallbladder were communicated to Dr. Parker's medical office manager Lisa Cowan by Dr. Schaffer at 4:00 p.m. on 08/21/2013. ?? Requested By: PORTER PARKER ??MBunny Dictated By: ?? BECKY SCHAFFER M.D. ??on Aug 21 2013 ??4:04P This document has been electronically signed by: OK OLSEN M.D. on Aug 21 2013 ??4:18P Procedure Note Provider, MD Mukesh - 10/10/2016 OK OLSEN M.D. BECKY SCHAFFER M.D. FINAL REPORT The radiology attending physician has personally reviewed this study, and has reviewed and/or edited this written report and agrees with it. ACC# Date Time Exam [id number] Aug 21, 2013 14:17:[id number] Angio Abd & AIF wwo con EXAMINATION: CT ANGIOGRAPHY OF THE ABDOMEN, PELVIS, AND LOWER EXTREMITIES WITH CONTRAST HISTORY: 68-year-old man with bilateral lower extremity claudication. TECHNIQUE: CT angiography of the abdomen, pelvis, and lower extremities performed following uneventful intravenous administration of 120 ml Optiray-350. Vascular 3D images were generated on a dedicated workstation and also reviewed. FINDINGS: There are no prior examinations available for comparison. VASCULAR FINDINGS: Abdominal Aorta and Branches: Celiac axis: no significant stenosis SMA: Mild atherosclerotic stenosis near the origin. JACKELIN: Occluded at the origin, recannulized distally from SMA branches. Right renal vessels: Moderate atherosclerotic stenosis at the origin. One vessel Left renal vessels: One vessel, no significant stenosis Infrarenal aorta: There are diffuse moderate to severe ulcerated atherosclerotic plaques throughout the descending thoracic and abdominal aorta. The most severe stenosis occurs 2-3 cm above the iliacbifurcation. Pelvic Vessels: R. Common iliac artery: Completely occluded secondary to atherosclerotic plaque. There is reconstitution distal the at the internal/external iliac bifurcation. R. External iliac artery: Diffuse atherosclerotic disease causing moderate to severe stenosis. Focal severe stenosis is located just distal to the bifurcation. R. Internal iliac artery: Diffuse moderate atherosclerotic stenosis. L. Common iliac artery: There is a severe focal stenosis just distal to the bifurcation. There is moderate diffuse atherosclerotic stenosis. L. External iliac artery: The moderate atherosclerotic focal stenosis in the mid segment. L. Internal iliac artery: Moderate atherosclerotic focal stenosis just past the origin to Right Lower Extremity: R. Common femoral artery: Moderate atherosclerotic stenosis. R. Profunda femoris artery: no significant stenosis R. SFA: Moderate diffuse stenosis, the vessel becomes diminutive in the mid thigh and reconstitutes distally secondary to collateral flow. R. Popliteal artery: no significant stenosis R. Anterior tibial artery: No significant stenosis, small caliber from a vessel crosses the ankle to the dorsalis pedis. R. Tibioperoneal trunk: no significant stenosis R. Posterior tibial artery: No significant stenosis. Small vessel caliber, the vessel crosses the ankle becomes plantar artery. R. Peroneal artery: no significant stenosis R. Dorsalis pedis artery: no significant stenosis R. Plantar artery: no significant stenosis Left Lower Extremity: L. Common femoral artery: Moderate diffuse atherosclerotic stenosis L. Profunda femoris artery: no significant stenosis L. SFA: The vessel is completely occluded in the proximal aspect with reconstitution distally secondary to collateral flow. L. Popliteal artery: Moderate diffuse atherosclerotic stenosis L. Anterior tibial artery: Small caliber, no significant stenosis, the vessel crosses the ankle and becomes the dorsalis pedis artery. L. Tibioperoneal trunk: no significant stenosis L. Posterior tibial artery: Small caliber, no significant stenosis, vessel crosses the joint and becomes the plantar artery. L. Peroneal artery: no significant stenosis L. Dorsalis pedis artery: no significant stenosis L. Plantar artery: no significant stenosis NON-VASCULAR FINDINGS: Limited images of the lung bases and heart are normal. There is no free intraperitoneal fluid or gas. There is diverticulosis without evidence of diverticulitis. The liver is normal and without focal lesions. There is variable wall thickening and heterogeneous enhancement of the gallbladder near the fundus. No evidence of cholecystitis. The spleen is normal. The pancreas is normal. Adrenal glands are prominent bilaterally. There is no abdominal or pelvic lymphadenopathy.The kidneys, ureters and bladder are normal. Prostate is large. There is multilevel degenerative this disease of the thoracic and lumbar spine. No fractures or suspicious osseous lesions are identified. Right lower extremity musculature and soft tissue is normal. Left lower extremity musculature and soft tissues normal. IMPRESSION: 1. There is diffuse moderate to severe ulcerated atherosclerotic plaque throughout the descending thoracic and abdominal aorta. The most severe stenosis occurs approximately 2-3 cm above the iliac bifurcation. 2. Right lower extremity: The right common iliac artery is completely occluded secondary to atherosclerotic plaque, there is distal reconstitution at the internal/external iliac bifurcation. There is moderate to severe diffuse stenosis of the right internal and external iliac arteries. The right superficial femoral artery becomes diminutive in the mid thigh and reconstitutes distally. There is 3-vessel runoff distally. 3. Left lower extremity: There is severe focal left common iliac artery stenosis just distal to the bifurcation and moderate to severe diffuse atherosclerotic stenosis. There is moderate focal stenosis the left external iliac artery in the mid segment. Moderate diffuse stenosis of the left common femoral artery is present, and the left superficial femoral artery is completely occluded at the proximal aspect with distal reconstitution secondary to collateral flow. There is 3-vessel runoff distally. 4. Heterogeneous enhancement with variable wall thickening of the gallbladder body and fundus. This finding may represent adenomyomatosis but a solid soft tissue mass cannot be entirely excluded. Further evaluation with gallbladder ultrasound is recommended. 5. Diverticulosis without diverticulitis. These findings regarding the gallbladder were communicated to Dr. Parker's medical office manager Lisa Cowan by Dr. Schaffer at 4:00 p.m. on 08/21/2013. Requested By: PORTER PAKRER M.D. Dictated By: BECKY SCHAFFER M.D. on Aug 21 2013 4:04P This document has been electronically signed by: OK OLSEN M.D. on Aug 21 2013 4:18P Historical Provider MD DENIS CT PROCEDURES Final R esult from Last 3 Months or Most Recently Relevant to Health Maintenance Insurance HU[employer] MEDICARE HMO HU[employer]NA MEDICARE HMO Advance Directives For more information, please contact: [phone] * Full Code (Latest Code Status on File) Date Activated Date Inactivated Comments 06/12/2023 8:49 AM 06/19/2023 8:52 PM * Full Code Date Activated Date Inactivated Comments 05/14/2023 3:50 AM 05/21/2023 12:01 AM Care Teams Graphic Art Sales Representative Relationship Specialty Start Date End Date Ace Tavares DO PCP - General Internal Medicine 02/22/19 Becky Cisneros MD Lobby Attendant Cardiovascular Disease 03/19/19
--- OUTSIDE RECORDS SUMMARY | 2024-07-02 23:13 | XMS_ITS | Clinical Summary ---
Author Organization [facility] Address [address] [place] [address] Phone Care Team Providers Care Job Counselor Name Role Phone KamilalissetteAce adamson DO Primary Care Provider [phone] Allergies No known active allergies Medications Medication Sig Dispensed Refills Start Date End Date Status tamsulosin (FLOMAX) 0.4 MG 24 hr capsule Take 0.4 mg by mouth 1 (one) time each day. Active pantoprazole (PROTONIX) 40 MG EC tablet Take 40 mg by mouth 1 (one) time each day before breakfast. Active clopidogrel (PLAVIX) 75 MG tablet Take 75 mg by mouth 1 (one) time each day. Active atorvastatin (LIPITOR) 40 MG tablet Take 40 mg by mouth 1 (one) time each day. Active carvedilol (COREG) 25 MG tablet Take 25 mg by mouth 2 (two) times a day with meals. Active albuterol HFA (PROVENTIL HFA;VENTOLIN HFA) 108 (90 Base) MCG/ACT inhaler Inhale 2 puffs every 6 (six) hours if needed for wheezing. Active fluticasone (FLONASE) 50 MCG/ACT nasal spray Administer 1 spray into each nostril 1 (one) time each day. Shake gently. Before first use, prime pump. After use, clean tip and replace cap. Active amLODIPine (NORVASC) 5 MG tablet Take 5 mg by mouth 1 (one) time each day. Active lisinopril (PRINIVIL) 40 MG tablet 12/22/2020 Active aspirin 81 MG chewable tablet Chew 81 mg 02/15/2019 Active glipiZIDE (GLUCOTROL) 5 MG tablet 12/05/2020 Active Accu-Chek Flory Plus test strip 11/27/2020 Active sertraline (ZOLOFT) 50 MG tablet 02/20/2019 Active Active Problems Problem Noted Date Diagnosed Date Dizziness 04/02/2019 Dyslipidemia 04/02/2019 History of cerebrovascular accident 04/02/2019 Paroxysmal atrial fibrillation 04/02/2019 Peripheral vascular disease 04/02/2019 Stenosis of left carotid artery 03/01/2019 Overview (02/28/2021): Last Assessment & Plan: Patient has prior left hemispheric stroke with [...] Patient understands and now wishes to proceed. Aphasia 02/12/2019 Dysarthria 02/12/2019 Expressive dysphasia 02/12/2019 Hyperlipidemia 02/12/2019 Overview (02/28/2021): Last Assessment & Plan: For patient cholesterol levels remain controlled. Continue current statin therapy per Cardiology recommendations. Left hemiparesis 02/12/2019 Serum creatinine raised 02/12/2019 Smoker 02/12/2019 Overview (02/28/2021): Last Assessment & Plan: Unfortunately patient continues to smoke. Greater than 3 minutes was spent on smoking cessation counseling in the ongoing ill affects it has on his cardiovascular system and risk for future stroke and poor outcomes. He states he probably will not quit. Type 2 diabetes mellitus 02/12/2019 Overview (02/28/2021): Last Assessment & Plan: Per patient blood glucose levels remain controlled. Continue current regimen per primary care visit Essential hypertension 11/29/2018 Overview (02/28/2021): Last Assessment & Plan: Controlled. Intermittent claudication of bilateral lower limbs co-occurrent and due to atherosclerosis 11/19/2016 Right carotid artery occlusion 11/12/2016 Overview (02/28/2021): Last Assessment & Plan: Known chronic occlusion of the right internal carotid artery that does not require surgical intervention. Continue ongoing risk factor modification. Intermittent claudication du e to atherosclerosis of artery of limb 08/07/2013 Overview (02/28/2021): Last Assessment & Plan: Stable non disabling lower extremity claudication. No progression to rest pain. Will repeat new baseline arterial studies. Continue exercise and risk factor modification Family History Medical History Relation Comments Emphysema Father Diabetes mellitus Mother Stroke Mother Relation Status Comments Father Mother Social History Tobacco Use Types Packs/Day Years Used Date Smoking Tobacco: Every Day Cigarettes Smokeless Tobacco: Never Tobacco Cessation:Ready to Q uit: No; Counseling Given: Yes Alcohol Use Standard Drinks/Week Comments Yes 0 (1 standard drink = 0.6 oz pur e alcohol) Sex and Gender Information Value Date Recorded Sex Assigned at Not on file Gender Identity Not on file Sexual Orientation Not on file Last Filed Vital Signs Vital Sign Reading Time Taken Comments Blood Pressure 140/74 02/16/2021 9:47 AM CDT Pulse - - Temperature 36.6 ??C (97.9 ??F) 02/16/2021 9:47 AM CD T Respiratory Rate 18 02/16/2021 9:47 AM CDT Oxygen Saturation - - Inhaled Oxygen Concentration - - Weight 64.4 kg (142 lb) 02/16/2021 9:47 AM CDT Height 170.2 cm (5' 7 ) 02/16/2021 9:47 AM CDT Body Mass Index 22.24 02/16/2021 9:47 AM CDT Plan of Treatment Health Maintenance Due Date Last Done Comments Pneumococcal PPSV23/PCV13 65 + Years / Low and Medium Risk (1 of 4 - PCV) 2010 Influenza Vaccine (#1) 2024 Care Teams Job Counselor Relationship Specialty Start Date End Date Ace Tavares DO [address] [place] [id number] PCP - General Internal Medicine 10/31/18
--- OUTSIDE RECORDS SUMMARY | 2024-07-02 23:13 | XMS_ITS | Clinical Summary ---
Author Organization [facility] Address [address] [place] [address]. [place], [place] [id number] [place] [address] Care Team Providers Care Assistant Operations Manager Name Role Phone Ace Tavares DO Primary Care Provider [phone] Tony Hernandez MD Unavailable [phone] Leatha Ramirez ANP-BC Unavailable Unavailab le Active Problems Problem Noted Date Diagnosed Date PAD (peripheral artery disease) H/O: stroke Paroxysmal A-fib (CMS/HCC HHS/HCC) Carotid artery stenosis without cerebral infarct ion Dizziness Dyslipidemia Essential hypertension Family History Medical History Relation Comments Emphysema Father Stroke Mother Relation Status Comments Father Mother Social History Tobacco Use Types Packs/Day Years Used Date Smoking Tobacco: Smoker, Current Status Unknown Alcohol Use Standard Drinks/Week Comments Not Asked 0 (1 standard drink = 0.6 oz pur e alcohol) socially Sex and Gender Information Value Date Recorded Sex Assigned at Not on file Legal Sex Male 11:19 AM CDT Gender Identity Not on file Sexual Orientation Not on file Plan of Treatment Health Maintenance Due Date Last Done Comments ASCVD LDL 1945 ASCVD Statin 1945 Pneumococcal Vaccine: 65+ Ye ars (1 of 2 - PCV) 1951 Hepatitis C 1963 DTaP, Tdap and Td Vaccines ( 1 - Tdap) 02/01/1964 Zoster Vaccines (1 of 2) 1995 Annual Medicare Wellness Visit 2010 RSV Immunization or 60+ Years (1 - 1-dose 75+ series) 02/01/2020 COVID-19 Vaccine ( - 2023-2 5 season) 2024 Influenza Adult (#1) 2024 Meningococcal B Vaccine Aged Out No l onger eligible based on patient's age to complete this topic Meningococcal Vaccine Aged Out No valeria zak eligible based on patient's age to complete this topic RSV Immunizations Under 20 Months Aged Out No longer eligible based on patient's age to complete this topic Insurance HUMANA Care Teams Assistant Operations Manager Relationship Specialty Start Date End Date Ace Tavares DO [facility] [address] [place] [address] PCP - General INTERNAL MEDICINE 11/05/15 Tony Hernandez MD [address] [address] [facility] CARDIOVASCULAR DISEASE 11/05/15 Leatha Ramirez, ANP- [address] [address] Nurse Practitioner NURSE PRACTITIONER 04/14/16
--- OUTSIDE RECORDS SUMMARY | 2024-07-02 23:13 | XMS_ITS | Clinical Summary ---
Author Organization [facility] Address [address] [place] [address] Phone Care Team Providers Care Food Service Team Member Name Role Phone KamilalissetteAce adamson Primary Care Provider Allergies No known active allergies Medications lisinopril (PRINIVIL, ZESTRIL) 40 MG Tablet Take 40 mg by mouth daily. Active atorvastatin (LIPITOR) 40 MG Tablet Take 40 mg by mouth daily. Active clopidogrel (PLAVIX) 75 MG Tablet Take 75 mg by mouth daily. Active pantoprazole (PROTONIX) 40 MG Tablet Delayed Response Take 40 mg by mouth daily. Active tamsulosin (FLOMAX) 0.4 MG Capsule Take 0.4 mg by mouth daily. Active aspirin 81 MG Chewable Tablet Take 1 Tab by mouth daily. 100 Tab 02/15/2019 Active linagliptin (TRADJENTA) 5 MG Tablet Take 1 Tab by mouth daily. 30 Tab 02/15/2019 Active carvedilol (COREG) 25 MG Tablet Take 1 Tab by mouth 2 times daily. 180 Tab 02/14/2019 Active Active Problems Problem Noted Date Diagnosed Date Dysarthria s/p tPA at 1528 on 02/12/2019 9 DM2 (diabetes mellitus, type 2) 02/12/2019 Aphasia 02/12/2019 Expressive aphasia 02/12/2019 Hyperlipemia 02/12/2019 Smoker 02/12/2019 Elevated serum creatinine 02/12/2019 Left-sided weakness 02/12/2019 Family History Medical History Relation Name Comments Diabetes Mother Relation Name Status Comments Mother Social History Tobacco Use Types Packs/Day Years Used Date Smoking Tobacco: Former Cigarettes 1 40 0 02/01/1979 - 02/01/2019 PHQ-2 Answer Date Recorded PHQ-2 Score 0 02/13/2019 Sex and Gender Information Value Date Recorded Sex Assigned at Not on file Legal Sex Male 2:27 PM CDT Gender Identity Not on file Sexual Orientation Not on file Last Filed Vital Signs Vital Sign Reading Time Taken Comments Blood Pressure 165/57 02/14/2019 12:52 PM CDT Pulse 85 02/14/2019 3:10 AM CDT Temperature 36.4 ??C (97.6 ??F) 02/14/2019 1 2:52 PM CDT Respiratory Rate 16 02/14/2019 12:5 2 PM CDT Oxygen Saturation 96% 02/14/2019 12: 52 PM CDT Inhaled Oxygen Concentration - - Weight 76.2 kg (167 lb 15.9 oz) 02/13/2019 2:30 AM CDT Height 170.2 cm (5' 7 ) 02/12/2019 3:02 PM CDT Body Mass Index 26.31 02/12/2019 3:02 PM CDT Plan of Treatment Health Maintenance Due Date Last Done Comments Diabetes: Eye Exam 1945 Diabetes: Foot Exam 1945 Hepatitis C Virus (HCV) Screening 1945 TdaP Immunization 1945 Diabetes: Nephropathy Screening 1963 Pneumococcal Immunization (5 0+ years) (1 of 2 - PCV) 02/01/1964 Zoster Immunization (1 of 2) 1995 Diabetes: Hemoglobin A1c 08/14/2019 02/13/2019 Respiratory Syncytial Virus (RSV) Immunization (Adult) (1 - 1-dose 75+ series) 02/01/2020 Influenza Immunization (#1) 2024 SARS-COV-2 Immunization ( - 2023-25 season) 2024 Hepatitis B Immunization Aged Out No longer eligible based on patient's age to complete this topic Meningococcal Immunization (ACWY) Aged Out No longer eligible based on patient's age to complete this topic Rotavirus Immunization Aged Out No lo nger eligible based on patient's age to complete this topic Procedures Procedure Name Priority Date/Time Associated Diagnosis Comments HEMOGLOBIN A1C W/ ESTIMATED GLUCOSE STAT 02/13/2019 4:14 AM CDT from Last 3 Months or Most Recently Relevant to Health Maintenance Results * (ABNORMAL) Hemoglobin A1C (02/13/2019 4:14 AM CDT) HGB-A1C 6.5(H) 4.0 - 6.0 % 02/13/2019 4:52 AM CDT [facility] Est Average Glucose 139.9 mg/dL 02/13/2019 4:52 AM CDT [facility] Blood specimen (specimen) Venipuncture / Unknown 02/13/2019 4:14 AM CDT 02/13/2019 4:20 AM CDT Narrative [facility] - 02/13/2019 4:52 AM CDT Specimens containing greater than 5% of Hemoglobin F may result in lower than expected % HbA1C results. us Mason Sweeney DO CHEMISTRY ORDERABLES Final R esult Performing Organization Address City/State/[facility] Co de Phone Number [facility] [address] [place] [address], from Last 3 Months or Most Recently Relevant to Health Maintenance Insurance MEDICARE C HUMANA Advance Directives * Full Code (Latest Code Status on File) Date Activated Date Inactivated Comments 02/12/2019 4:03 PM 02/14/2019 3:46 PM CPR-Full Pamela tment: FULL ARREST: Attempt Resuscitation/CPR wit intubation and mechanical ventilation. PRE-ARREST: Use entire range of life support measures to stabilize the patient. Care Teams Food Service Team Member Relationship Specialty Start Date End Date Ace Tavares DO [address] [facility] [address] [facility] [address] PCP - General Internal Medicine 02/12/19
--- OUTSIDE RECORDS SUMMARY | 2024-07-02 23:13 | XMS_ITS | CONTINUITY OF CARE DOCUMENT ---
Author Name missy louis Address Unknown Organization [facility] Address [address] [place] [address] Phone [phone] Care Team Providers Care Apparel Trimmings Sales Representative Name Role Phone missy louis Unavailable Unavailable INSURANCE PROVIDERS Payer name Policy type / Coverage type [place] red green party ID [id number] PPO Other [id number]
--- OUTSIDE RECORDS SUMMARY | 2024-07-02 23:13 | XMS_ITS | Encounter Summary ---
Author Organization [facility] Care Team Providers Care Hotel Receptionist Name Role Phone Ace Tavares DO Primary Care Provider [phone] Gustavo Cisneros MD Unavailable [phone] Encounter Details Date Type Department Care Team (Latest Contact Info) Description 11/26/2016 Orders Only [facility] ProviderMukesh MD [address] [place] [address] Social History Tobacco Use Types Packs/Day Years Used Date Smoking Tobacco: Never Assessed Sex and Gender Information Value Date Recorded Sex Assigned at Not on file Legal Sex Male 10:52 AM INTERLACER Gender Identity Not on file Sexual Orientation Not on file documented as of this encounter Plan of Treatment Not on file documented as of this encounter Procedures Procedure Name Priority Date/Time Associated Diagnosis Comments SCAN - LABS 11/29/2016 12:00 AM CDT documented in this encounter Results * SCAN - LABS (11/29/2016 12:00 AM CDT) Narrative 11/29/2016 12:00 AM CDT Ordered by an unspecified provider. Historical Provider Final Res ult documented in this encounter Visit Diagnoses Not on filedocumented in this encounter Additional Health Concerns Infection Onset Date Last Indicated Resolved Time COVID: Suspected 06/13/2023 06/13/2023 06/13/2023 2:46 PM INTERLACER documented as of this encounter Care Teams Hotel Receptionist Relationship Specialty Start Date End Date Ace Tavares DO PCP - General Internal Medicine 02/22/19 Gustavo Cisneros MD Clinical Services Manager Cardiovascular Disease 03/19/19 documented as of this encounter
--- OUTSIDE RECORDS SUMMARY | 2024-07-02 23:14 | XMS_ITS | Clinical Summary ---
Author Organization [facility] at the [facility] Address [address] [place] [address] Care Team Providers Care Telehealth Director Name Role Phone Ace Tavares DO Primary Care Provider [phone] Becky Cisneros MD Unavailable [phone] Allergies No known active allergies Medications atorvastatin [...] 07/01/2023 Assessment & Plan (07/01/2023 11:59 AM JORDAN MAN): LVEF was 45%. Continue metoprolol and Bidil. NSTEMI (non-ST elevated myocardial infarction) ( [facility]) 06/12/2023 Protein-calorie malnutrition, moderate ([facility]) 06/12/2023 Coronary artery disease 05/19/2023 Assessment & Plan (07/01/2023 11:59 AM JORDAN MAN): Status post successful complex PCI of the left main LAD and circumflex. The patient is asymptomatic. Continue aspirin and Brilinta. Cardiorenal syndrome 05/17/2023 Chronic kidney disease 05/17/2023 CKD (chronic kidney disease) stage 4, GFR 15-29 ml/min ([facility]) 05/16/2023 Systolic congestive heart failure ([facility]) 05/06 Murmur, heart 05/15/2023 Renal insufficiency 05/15/2023 History of CHF (congestive heart failure) 2022 Dizziness 04/02/2019 Dyslipidemia 04/02/2019 H/O: stroke 04/02/2019 PAOD (peripheral arterial occlusive disease) ([facility]) 04/02/2019 Paroxysmal A-fib ([facility]) 04/02/2019 Essential hypertension 03/19/2019 Assessment & Plan (03/19/2019 10:57 AM CDT): Controlled. Pre-operative clearance 03/19/2019 Assessment & Plan (03/19/2019 10:57 AM CDT): Limited aerobic capacity. Recommend pharmacological stress test Stenosis of left carotid artery 03/01/2019 Assessment & Plan (04/11/2019 9:47 AM JORDAN MAN): Patient has prior left hemispheric stroke with [...] 02/12/2019 Assessment & Plan (04/11/2019 9:46 AM JORDAN MAN): Per patient blood glucose levels remain controlled. Continue current regimen per primary care visit Dysarthria 02/12/2019 Elevated serum creatinine 02/12/2019 Expressive aphasia 02/12/2019 Hyperlipemia 02/12/2019 Assessment & Plan (07/01/2023 11:59 AM JORDAN MAN): Continue atorvastatin 40 mg daily. Assessment & Plan (04/11/2019 9:46 AM JORDAN MAN): For patient cholesterol levels remain controlled. Continue current statin therapy per Cardiology recommendations. Assessment & Plan (03/19/2019 10:56 AM CDT): Agree with statin. Left-sided weakness 02/12/2019 Smoker 02/12/2019 Assessment & Plan (04/11/2019 9:48 AM JORDAN MAN): Unfortunately patient continues to smoke. Greater than [...] quit within 3 months period Atherosclerosis of [place] of both lower extremities with intermittent claudication 11/19/2016 Carotid occlusion, right 11/12/2016 Assessment & Plan (03/27/2019 2:33 PM CDT): Known chronic occlusion of the right internal carotid artery that does not require surgical intervention. Continue ongoing risk factor modification. Assessment & Plan (03/19/2019 10:56 AM CDT): Recommend nuclear stress test before clearance Atherosclerosis of [place] of extremity with intermittent claudication 08/07/2013 Assessment & Plan (03/01/2019 8:46 AM CDT): Stable non disabling lower extremity claudication. No progression to rest pain. Will repeat new baseline arterial studies. Continue exercise and risk factor modification Surgical History Surgery Date Site/Laterality Comments TONSILLECTOMY/ADENOIDECTOMY ABCESS DRAINAGE Medical History Medical History Date Comments Atrial fibrillation (CMS/HCC) (HCC) GERD (gastroesophageal reflux disease) HTN (hypertension) Bronchitis Arthritis Hyperlipidemia Diabetes mellitus (HCC) Carotid stenosis Fatigue Vision changes Weakness Back pain Social History Tobacco Use Types Packs/Day Years [...] materials from doctor or pharmacy Never 08/25/2023 [facility] Utilities Answer Date Recorded In the past 12 months has th e electric, gas, oil, or water company threatened to shut off services in your home? No 06/13/2023 Social Connection and Isolation Panel [NHANES] A nswer Date Recorded In a typical week, how many times do you talk on the phone with family, friends, or neighbors? Once a week 06/13/2023 How often do you get together with friends or re latives? Once a week 06/13/2023 How often do you attend hoahaoism or zoroastrian serv ices? Never 06/13/2023 Do you belong to any clubs o r organizations such as hoahaoism groups, unions, fraternal or athletic groups, or [...] place to sleep or slept in a chcf (including now)? No 06/13/2023 Personal Safety Answer Date Recorded Have you ever been in or are you currently in a harmful physical or emotional relationship or is someone making you feel afraid or unsafe? Denies 06/12/2023 Sex and Gender Information Value Date Recorded Sex Assigned at Not on file Legal Sex Male 10:52 AM JORDAN MAN Gender Identity Not on file Sexual Orientation Not on file Obstetrics History Last Filed Vital Signs Vital Sign Reading Time Taken Comments Blood Pressure 139/69 08/25/2023 11:16 AM CDT Pulse 90 08/25/2023 11:16 AM CDT Temperature 36.8 ??C (98.2 ??F) 08/25/2023 11:16 AM C DT Respiratory Rate 18 08/25/2023 11:16 AM CDT Oxygen Saturation 99% 08/25/2023 11:16 AM CDT Inhaled Oxygen Concentration - - Weight 59.9 kg (132 lb) 08/01/2023 3:09 PM JORDAN MAN Height 167.6 cm (5' 6 ) 08/01/2023 3:09 PM JORDAN MAN Body Mass Index 21.31 08/01/2023 3:09 PM JORDAN MAN Plan of Treatment Health Maintenance Due Date Last Done Comments Albumin Creatinine Ratio, Urine 1945 Depression Screening 1945 Hepatitis C Screening 1945 Dilated Eye Exam 1945 Foot Exam 1945 Pneumococcal vaccine 65+ (1 of 2 - PCV) 1951 DTaP/Tdap/Td Vaccine (1 - Tdap) 02/01/1956 Hepatitis B Screening 1963 Lung Cancer Screening 1995 Zoster Vaccine (1 of 2) 1995 Well Visit 65+ 2010 Lipid Panel 02/14/2020 02/13/2019 Hemoglobin A1C 11/13/2023 05/14/2023 Influenza Vaccine (#1) 2024 Fall Risk Assessment 06/19/2024 06/19/2023 eGFR 06/19/2024 06/19/2023, 06/06, 06/17/2023, Additional history exists Abdominal Aortic Aneurysm (A AA) Screen Completed 08/21/2013 Medical Devices Implanted Type Area [employer] Stenographer Device Identifier Shelf Expiration Date Model / Serial / Lot Medtronic [facility] Vas Surgery 3.5 X 12mm [place] Rx Coronary Stent [id number] - [id number] Implanted:Qty: 1 on 06/13/2023 by [facility] Surgery 11/09/2025 [id number] / / [id number] Surgery 3.5 X 12mm [place] Rx Coronary Stent [id number] - [id number] Implanted:Qty: 1 on 06/13/2023 by Luke [facility] at [facility] Surgery 02/03/2026 [id number] UX / / [id number] 001 Medtronic Inc Protege Gps Exprt 9mm .079in 60mm 120cm Otw Delivery System Self - [id number] Implanted:Qty: 1 on 06/13/2023 by [facility] at [facility] 11/07/2023 [id number] 0-120 / / [id number] Medtronic Inc Everflex Entrust 8mm 60mm 120cm Self Expand Triaxial Low Profile - [id number] Implanted:Qty: 1 on 06/13/2023 by Luke [facility] at [facility] 01/16/2026 [id number] 0-120 / / [id number] Medtronic Inc Everflex Od7 Mm L30 Mm L120 Cm Self Expand Delivery Catheter System Spiral Cell Peak To Peak Connection Node Peripheral Stent Vascular Accepts .035 In Guidewire 6 Fr Introducer Sheath 5. Implanted:Qty: 1 on 06/13/2023 by Luke Pablo MD at [facility] Medtr[employer] [facility] 01/03/2026 [id number] 0-120 / / [id number] [facility] Mynxgrip 6-7fr Balloon Catheter Integrate Sealant Lock Latex Free [id number] - [id number] Implanted:Qty: 1 on 06/13/2023 by Luke Pablo MD at [facility] 08/03/2023 [id number] / / [id number] Procedures Procedure Name Priority Date/Time Associated Diagnosis Comments EGFR Routine 06/19/2023 5:10 AM JORDAN MAN HEMOGLOBIN A1C STAT 05/14/2023 5:27 AM JORDAN MAN CTA ABDOMINAL AORTA AND BILATERAL ILIOFEMORAL RUNOFF Routine 08/21/2013 2:17 PM CDT from Last 3 Months or Most Recently Relevant to Health Maintenance Results * eGFR (06/19/2023 5:10 AM JORDAN MAN) Pathologist [facility] eGFR 33 mL/min/1. 73 m2 SHERYL DURBIN [...] of Race in Diagnosing Kidney Disease, JASN 202). The CKD-EPI equation should not be used for patients with unstable renal function and has not been validated in children and those over 70. Current interpretive data was last reviewed 2021. Blood 06/19/2023 5:10 AM JORDAN MAN 06/19/2023 5:30 AM JORDAN MAN us Leatha Hassan CORPORATE DIRECTOR TALENT ASSESSMENT LAB BLOOD ORDERABLES F inal Result Performing Organization Address [facility] Phone Number SHERYL [phone] Department [place] [address] * (ABNORMAL) Hemoglobin A1c (05/14/2023 5:27 AM JORDAN MAN) Hgb A1C 6.5(H) 4.0 - 5.6 % SHERYL VIVEROS Estimated Average Glucose 140 mg/dL SHERYL VIVEROS Comment: The ADA recommends reporting an estimated Average Glucose (eAG) with all Hemoglobin A1c results using the equation derived from a study of 507 normal and diabetic adults. ??Minority populations were underrepresented and children were not included. ?? (Diabetes Care 31:2613-5232, 2007). ??The eAG is not equivalent to a fasting glucose. Blood 05/14/2023 5:27 AM JORDAN MAN 05/14/2023 5:30 AM JORDAN MAN Lc Dunbar MD LAB BLOOD ORDERABLES Final Result Performing Organization Address [facility] de Phone Number SHERYL [address] [facility] [place] [address] * CTA Abdominal Aorta And Bilateral Iliofemoral [...] agrees with it. ACC# ??Date Time ??Exam [id number] Aug 21, 2013 14:17:[id number] Angio Abd & AIF wwo con [...] regarding the gallbladder were communicated to Dr. Pakrer's medical pathologist Lisa Cowan by Dr. Schaffer at 4:00 p.m. on 08/21/2013. ?? Requested By: PORTER PARKER ??Brandi Dictated By: ?? BECKY SCHAFFER M.D. ??on [...] agrees with it. ACC# Date Time Exam [id number] Aug 21, 2013 14:17:[id number] Angio Abd & AIF wwo con [...] gallbladder were communicated to Dr. Parker's medical pathologist Lisa Cowan by Dr. Schaffer at 4:00 p.m. on 08/21/2013. Requested By: PORTER PARKER M.D. Dictated By: EBCKY SCHAFFER M.D. on Aug 21 2013 4:04P This document has been electronically signed by: OK OLSEN M.D. on Aug 21 2013 4:18P Historical Provider MD DENIS CT PROCEDURES Final R esult from Last 3 Months or Most Recently Relevant to Health Maintenance Insurance [employer] MEDICARE HMO HU[employer] MEDICARE HMO Advance Directives For more information, please contact: [phone] * Full Code (Latest Code Status on File) Date Activated Date Inactivated Comments 06/12/2023 8:49 AM 06/19/2023 8:52 PM * Full Code Date Activated Date Inactivated Comments 05/14/2023 3:50 AM 05/21/2023 12:01 AM Care Teams Telehealth Director Relationship Specialty Start Date End Date Ace Tavares DO PCP - General Internal Medicine 02/22/19 Becky Cisneros MD Enamel Dipper Cardiovascular Disease 03/19/19
[2024-07-02 23:21] LABS: Alanine Aminotransferase 25 U/L (6-50); Albumin Level 4.4 g/dL (3.5-5.1); Alkaline Phosphatase 119 U/L (38-126); Anion Gap 12 mmol/L (4-12); Aspartate Amino Transferase 26 U/L (17-59); Bilirubin,Total 0.9 mg/dL (0.2-1.3); Blood Urea Nitrogen 55 mg/dL (9-20); Calcium 8.5 mg/dL (8.4-10.2); Carbon Dioxide 26 mmol/L (22-30); Chloride 95 mmol/L (98-107); Estimated CRCL calculation 20 ml/min; Estimated Glomerular Filt Rate 29; Glucose 383 mg/dL (65-110); Potassium 4.3 mmol/L (3.4-5.0); Sodium 133 mmol/L (137-145)
[2024-07-02] MEDS: MAGNESIUM SULF 2 GM/WATER 50ML 2 GM/50 ML BAG IVPB (23:21)
[2024-07-02] MEDS: ALBUTEROL SULFATE NEB 2.5 MG/3 ML INH 10 MG INHALATION (23:26)
[2024-07-02] MEDS: IPRATROPIUM BR 0.02% INH SOLN 0.5 MG/2.5 ML VIAL 1 MG INHALATION (23:26)
[2024-07-02 23:32] VITALS: PULSE 104; RESP 38; O2SAT 98
--- NOTE | 2024-07-02 23:32 | PC.NURSE ---
ok to not draw blood cultures per edp.
[2024-07-02] MEDS: DOXYCYCLINE 100 MG/NS 100 ML 100 MG/100 ML BAG IVPB (23:33)
[2024-07-02] MEDS: cefTRIAXone 2 GM/NS 100 ML 2 GM/100 ML BAG IVPB (23:33)
[2024-07-02 23:43] LABS: Fractional Inspired Oxygen 50 %; HCO3 VBG 26.7 mEq/l (24.0-30.0); PCO2 VBG 48.1 mmHg (42.0-48.0); PO2 VBG 50.2 mmHg (35.0-45.0); pH VBG 7.363 (7.300-7.400)
[2024-07-02 23:44] LABS: Device BIPAP
[2024-07-02 23:45] LABS: Expiratory Pressure 6 cmH2O; Inspiratory Pressure 12 cmH2O
[2024-07-02 23:47] LABS: Influenza A QL RT-PCR Negative (Negative); Influenza B QL RT-PCR Negative (Negative); RSV RNA, RT-PCR Negative (Negative); SARS-CoV-2 RNA PCR Negative (Negative)
[2024-07-03] VITALS (20 sets, daily range): BP systolic 135–173; BP diastolic 68–76; PULSE 77–108; RESP 20–35; TEMP 36.3–36.5; O2SAT 91–100; BMI 19.4
--- NOTE | 2024-07-03 00:05 | ED.SOB ---
HPI - SOB/Dyspnea General Chief Complaint: Shortness of Breath/Dyspnea Stated Complaint: WORSENING SOB, RECENT PNE Time Seen by Provider: 07/02/24 22:59 History of Present Illness HPI Narrative: 79-year-old male with complex past medical history including chronic hypoxic respiratory failure from COPD on home oxygen 2 L as needed. He also was recently admitted to the hospital for respiratory failure which was multifactorial in a combination of COPD/congestive heart failure, possible pneumonia. Patient has been having increased oxygen requirements at home and was only saturating 85% when EMS arrived today. Patient is severely tachypneic, having pursed breathing and belly breathing. Profound wheezing by EMS and he was given albuterol, DuoNeb, Solu-Medrol in route with mild improvement. Patient states it feels similar to his COPD from last week but with acutely worsening. Denies any chest pain, nausea, vomiting, abdominal pain, back pain, headache, weakness. He is completing his course of oral antibiotics that he was discharged on from recent pneumonia. Related Data Home Medications ?Medication ?Instructions ?Recorded ?Confirmed ?Last Taken ?Type aspirin 81 mg tablet,delayed 81 mg PO DAILY 12/04/19 06/19/24 06/18/24 09:00 History release (Adult Low Dose Aspirin) 81 mg albuterol sulfate 90 mcg/actuation 2 puff inhalation TID PRN 05/08/23 06/19/24 06/19/24 07:30 History aerosol inhaler Shortness Of Breath Or Wheezing 2 puff cholecalciferol (vitamin D3) 50 50 mcg PO HS 02/14/24 06/19/24 06/18/24 09:00 History mcg (2,000 unit) capsule 50 mcg clonazepam 0.5 mg tablet 0.5 mg PO Q12H PRN anxiety 06/19/24 06/19/24 06/17/24 14:00 History 0.5 mg sennosides 8.6 mg-docusate sodium 2 tab-cap PO DAILY PRN constipation 06/19/24 06/19/24 04/16/24 05:19 History 50 mg tablet (Stimulant Laxative 2 tab-caps Plus) Allergies Allergy/AdvReac Type Severity Reaction Status Date / Time No Known Allergies Allergy Unknown Verified 06/19/24 17:59 Review of Systems Review of Systems: As reviewed above in HPI [facility] Past Medical History Medical History Chronic kidney disease, stage 4 (severe) Aortic stenosis Chronic respiratory failure with hypoxia, on home oxygen therapy Gastroesophageal reflux disease 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 Hyperlipidemia Chronic obstructive pulmonary disease Deep venous thrombosis Coronary artery disease Carotid stenosis, bilateral Depression due to physical illness Tobacco dependence Non-ST elevation myocardial infarction (NSTEMI) 05/08/2023 and 06/11/2023 Type 2 diabetes mellitus Chronic kidney disease Emphysema lung Allergies Anxiety Peripheral artery disease Hypertension Renal artery stenosis Surgical History Surgical History History of cataract extraction History of coronary artery stent placement History of cardiac catheterization History of tonsillectomy Family History Family History Mother Family history of diabetes mellitus in first degree relative Cerebrovascular accident Father Family history of emphysema Sibling Family history of malignant neoplasm Social History Social History Social History: Surrogate medical decision maker: Cheryl Simin, spouse. Code status: Full code. Smoking packs per day: 0.5 Smoking cigarettes per day: 10.0 Years smoked: 60 Smoking pack-years: 30.00 Smoking status: Former smoker Tobacco type: cigarettes Alcohol intake: former Substance use: never Substance use type: does not use Do You Feel Safe in your Home?: Yes Lack of Transportation: No Lack of Food: Never True Current Housing: I Have Housing Concerned About Future Housing: No Difficulty Paying Gas/Electric Bills: No Difficulty Paying for Meds: No Currently Unemployed: No Education: High School Diploma/GED Difficulty w/ Childcare or Family Care: No Living arrangements: with family Occupation/Education: retired Spiritual care concerns: No Exam Narrative: GENERAL: Ill-appearing and in respiratory distress, tachypneic HEAD: [Normocephalic, atraumatic.] EYES: [PERRLA and EOMI.] ENT: Nares clear, no rhinorrhea or epistaxis. Mucous membranes moist. NECK: Supple. CHEST: Coarse breath sounds with diminished air entry and scattered wheezing with prolonged expiratory phase throughout both lungs. Abdominal breathing, conversational dyspnea HEART: [Regular rate and rhythm]. No murmur heard. [Normal peripheral pulses.] ABDOMEN: [Soft, nondistended], [nontender], [No rigidity or guarding] EXTREMITIES: Normal range of motion. [No edema.] SKIN: Warm, dry, no rash. NEURO: [No focal deficits]. Alert and oriented [x3.] PSYCH: [Normal mood and affect.] Course Vital Signs Vital signs: Vital Signs Temperature 36.7 C 07/02/24 22:37 Pulse Rate 109 H 07/02/24 22:37 Respiratory Rate 20 07/02/24 22:37 Blood Pressure 162/80 H 07/02/24 22:37 Pulse Oximetry 95 07/02/24 22:37 Oxygen Delivery Nasal Cannula 07/02/24 22:37 Oxygen Flow Rate 3 07/02/24 22:37 Temperature 36.7 C 07/02/24 22:37 Pulse Rate 104 H 07/02/24 23:32 Respiratory Rate 38 H 07/02/24 23:32 Blood Pressure 162/80 H 07/02/24 22:37 Pulse Oximetry 98 07/02/24 23:32 Oxygen Delivery Nasal Cannula 07/02/24 22:47 Oxygen Flow Rate 3 07/02/24 22:47 MDM - SOB/Dyspnea MDM Narrative Medical decision making narrative: 79-year-old male with past medical history including COPD on home oxygen, congestive heart failure, coronary artery disease, diabetes, hypertension. Today patient presents in respiratory distress from his home as accompanied by family members. Patient was recently admitted and discharged about 1 week prior from this facility after being seen for respiratory distress, respiratory failure and pneumonia, COPD/CHF exacerbation. Today patient is having worsening respiratory status, tachypneic in the 30s, tachycardic in the low 100s, hypoxic requiring higher dose nasal cannula at 3 L, blood pressure elevated but not severely hypertensive. He is in respiratory distress but awake and able to answer all questions appropriately. He is able to verbalize a do not resuscitate order after we have barb discussions with his family about his respiratory status and functional decline despite multiple hospital visits and treatments. Patient will be started on BiPAP therapy at this time and respiratory therapy was called to bedside for assistance. He was given continuous albuterol and Atrovent, given magnesium sulfate and was already treated with steroids prior to arrival. Laboratory studies were obtained as well as a cardiac workup given his age and risk factors, chest x-ray, VBG, CBC, EKG, electrolyte panel ordered. He was started on antibiotics for COPD exacerbation including Rocephin and doxycycline. Will provide a small fluid bolus given his clinical dehydration. Patient was re-evaluated and feeling more comfortable on the BiPAP therapy. His VBG was otherwise reassuring with a compensated pH of 7.36. Slight CO2 retention 48 which is likely chronic for him. Bicarb of 26. Chest x-ray appears to have worsening edema versus infiltrates consistent with his respiratory status. Leukocytosis of 11.5 down trending from prior level. Chemistry panel shows a stable BUN and creatinine consistent with his chronic kidney disease. Slightly hyperglycemic likely secondary to all the steroids he has been receiving for his COPD. Troponin elevated 0.040 which is in line with his chronic elevations. EKG shows no acute ischemic changes and chronic ST segment depressions and inversions without any acute interval change from prior studies. BNP again over 30,000. Given patient's functional status and decline with multifactorial respiratory decline he would benefit from admission to the hospital and further evaluation and treatment. Did have discussions in the room with both family and patient about code status and we agreed to make him DNR DNI at this time in alignment with patient's wishes in the event of cardiac arrest or respiratory arrest. I spoke to the hospitalist Dr. Weber over the phone who accepted the patient to the intermediate care unit for continued treatment and BiPAP therapy as well as antibiotics and fluids. Differential Diagnosis Differential diagnosis: Likely acute exacerbation of chronic obstructive airways disease, congestive heart failure, community acquired pneumonia, asthma with exacerbation and other Medical Records Attestation: I reviewed the patient's medical records. Lab Data Attestation: I reviewed the patient's lab results. 07/02/24 23:05 07/02/24 23:05 Labs: Lab Results 07/02/24 07/02/24 07/02/24 Range/Units 23:04 23:05 23:41 WBC 11.5 H (4.5-10.0) K/mm3 RBC 4.40 L (4.6-6.20) M/mm3 Hgb 12.9 L (14.0-18.0) g/dL Hct 40.2 L (42.0-52.0) % MCV 91.4 (80-100) fl MCH 29.3 (26-34) pg MCHC 32.1 (32-36) g/dl RDW 14.7 H (11.5-14.5) % Plt Count 292 (150-375) k/mm3 MPV 10.9 H (7.4-10.4) fl Immature Gran % (Auto) 1.2 H (0-0.5) % Neut % (Auto) 83.2 H (45.5-73.1) % Lymph % (Auto) 6.9 L (18.3-44.2) % [place] % (Auto) 7.1 (2.6-8.5) % Eos % (Auto) 0.9 (0-4.4) % Baso % (Auto) 0.7 (0.2-1.2) % Lymph # (Auto) 0.79 L (0.9-3.2) K/mm3 [place] # (Auto) 0.8 H (0.1-0.6) K/mm3 Eos # (Auto) 0.1 (0-0.3) K/mm3 Baso # (Auto) 0.1 (0.0-0.1) K/mm3 Abs Immat Gran (auto) 0.14 H (0.00-0.031) K/mm3 Absolute Neuts (auto) 9.5 H (1.3-6.7) K/mm3 Absolute Nucleated RBC 0.000 (0.0-0.012) K/mm3 Nucleated RBC % 0.0 (0.0-0.2) % Expiratory Pressure 6 cmH2O Inspiratory Pressure 12 cmH2O Sodium 133 L (137-145) mmol/L Potassium 4.3 (3.4-5.0) mmol/L Chloride 95 L (98-107) mmol/L Carbon Dioxide 26 (22-30) mmol/L Anion Gap 12 (4-12) mmol/L BUN 55 H (9-20) mg/dL Creatinine 2.20 H (0.7-1.3) mg/dL Estim Creat Clear Calc 20 ml/min Estimated GFR 29 L (59 - ) Glucose 383 H (65-110) mg/dL Calcium 8.5 (8.4-10.2) mg/dL Total Bilirubin 0.9 (0.2-1.3) mg/dL AST 26 (17-59) U/L ALT 25 (6-50) U/L Alkaline Phosphatase 119 (38-126) U/L Troponin I 0.040 H* (0.000-0.034) ng/mL NT-Pro-B Natriuret Pep > 78045 H (19.9-100) pg/mL Total Protein 8.0 (6.3-8.2) g/dL Albumin 4.4 (3.5-5.1) g/dL Influenza A (RT-PCR) Negative (Negative) Influenza B (RT-PCR) Negative (Negative) RSV (RT-PCR) Negative (Negative) SARS-CoV-2 RNA (RT-PCR) Negative (Negative) ABG Data ABG results: 07/02/24 23:41 VBG pH 7.363 VBG pCO2 48.1 H VBG pO2 50.2 H VBG HCO3 26.7 O2 Delivery Device Bipap O2 Liters/Min Not Reportable FiO2 50 Attestation: I personally reviewed and interpreted this ABG as follows: Interpretation: Chronic hypercapnia, compensation without any acidosis Imaging Data Attestation: I personally reviewed and interpreted this imaging study as follows: My impression: Impressions Chest X-Ray 07/02/24 23:33 IMPRESSION: 1. Worsened mild pulmonary edema. 2. Stable moderate-sized pleural effusions. 3. Cardiomegaly. Critical Care Time Critical Care Time Critical Care Time: Yes Total Critical Care Time: 60 Discharge Plan Discharge Clinical Impression: Acute and chronic respiratory failure with hypoxia, Elevated troponin, Acute and chronic respiratory failure with hypercapnia, Elevated brain natriuretic peptide (BNP) level, COPD exacerbation Patient Disposition: Still a Patient Condition: Guarded Prognosis Time of Disposition: 01:54
[2024-07-03] MEDS: LACTATED RINGERS 1,000 ML 999 ML IV CONT (00:53)
[2024-07-03 01:25] LABS: NT Pro B Type Natriuretic Pept > 30000 pg/mL (19.9-100)
--- NOTE | 2024-07-03 02:04 | ECG_ITS ---
Test Date: 2024-07-03 02:25:40 Measurements Intervals [place] Rate: 89 P: 70 LA: 116 QRS: 27 QRSD: 109 T: 141 QT: 391 QTc: 476 Interpretive Statements SINUS RHYTHM WITH SHORT LA INTERVAL POSSIBLE LEFT ATRIAL ENLARGEMENT [-0.1mV P WAVE IN V1/V2] INTRAVENTRICULAR CONDUCTION DELAY ST DEVIATION AND MODERATE T-WAVE ABNORMALITY, CONSIDER LATERAL ISCHEMIA [-0.1+ mV T WAVE IN I/aVL/V5/V6] Compared to ECG 07/02/2024 22:52:28 NO SIGNIFICANT CHANGES Electronically Signed On 07-03-2024 16:15:33 [employer] by Tiffanie Ponce M.D.
[2024-07-03 02:55] LABS: Troponin I 0.035 ng/mL (0.000-0.034)
--- NOTE | 2024-07-03 08:12 | PM.IMHP ---
H&P: HPI History of Present Illness Date/Time: 07/03/24 08:12 Chief Complaint: shortness of breath Narrative: this is a 79-year-old male with complex past medical history including chronic hypoxic respiratory failure from COPD on home oxygen 2 L . He also was recently admitted to the hospital for respiratory failure which was multifactorial in a combination of COPD/congestive heart failure, possible pneumonia. Since discharge after few days he started to get more short of breath which progressively got Worse. Patient has been having increased oxygen requirements at home . When he continue to could worse he called EMS. When EMS arrived he was only saturating 85% . Patient is severely tachypneic, having pursed breathing and belly breathing. Profound wheezing by EMS and he was given albuterol, DuoNeb, Solu-Medrol in route with mild improvement. Patient states it feels similar to his COPD from last week but with acutely worsening. He denied any chest pain, nausea, vomiting, abdominal pain, back pain, headache, weakness. He is completing his course of oral antibiotics that he was discharged on from recent pneumonia. On ED evaluation he was in noted to be in respiratory distress tachypneic in 30s tachycardic in low 100s. Hypoxic on 3 L oxygen. Patient was started on a BiPAP and received DuoNeb treatment. Laboratory study showed WBC of 11.5 hemoglobin of 12.9 platelet of 292. Creatinine of 2.2 which is about baseline. BNP was more than 30,000. troponin was 0.040 VBG was obtained which showed pH of 7.36 slight CO2 retention with pCO2 of 48. Bicarb was 26 chest x-ray showed worsening edema versus infiltrates. EKG without any acute ST-T changes. He is admitted in the setting for further treatment. Review of Systems Review of Systems: - CONSTITUTIONAL: Denies weight loss, fever and chills. - HEENT: Denies changes in vision and hearing - RESPIRATORY: reports SOB and Reports cough. - CV: Denies palpitations and CP. - GI: Denies abdominal pain, nausea, vomiting and diarrhea. - : Denies dysuria and urinary frequency. - MSK: Denies myalgia and joint pain. - SKIN: Denies rash and pruritus. - NEUROLOGICAL: Denies headache and syncope. - PSYCHIATRIC: Denies recent changes in mood. Denies anxiety and depression. 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 Hyperlipidemia Chronic obstructive pulmonary disease Deep venous thrombosis Coronary artery disease Carotid stenosis, bilateral Depression due to physical illness Tobacco dependence Non-ST elevation myocardial infarction (NSTEMI) 05/08/2023 and 06/11/2023 Type 2 diabetes mellitus Chronic kidney disease Emphysema lung Allergies Anxiety Peripheral artery disease Hypertension Renal artery stenosis Surgical History Surgical History History of cataract extraction History of coronary artery stent placement History of cardiac catheterization History of tonsillectomy Family History Family History Mother Family history of diabetes mellitus in first degree relative Cerebrovascular accident Father Family history of emphysema Sibling Family history of malignant neoplasm Social History Social History Social History: Surrogate medical decision maker: Cheryledna Duval, spouse. Code status: Full code. Smoking packs per day: 0.5 Smoking cigarettes per day: 10.0 Years smoked: 60 Smoking pack-years: 30.00 Smoking status: Unknown if ever smoked Tobacco type: cigarettes Alcohol intake: never Substance use: never Substance use type: does not use Do You Feel Safe in your Home?: Yes Lack of Transportation: No Lack of Food: Never True Current Housing: I Have Housing Concerned About Future Housing: No Difficulty Paying Gas/Electric Bills: No Difficulty Paying for Meds: No Currently Unemployed: Decline to Answer Education: Decline to Answer Difficulty w/ Childcare or Family Care: No Living arrangements: with family Occupation/Education: retired Spiritual care concerns: No Meds Home Medications and Allergies Home Medications ?Medication ?Instructions ?Recorded ?Confirmed ?Type aspirin 81 mg tablet,delayed 81 mg PO DAILY 12/04/19 07/03/24 History release (Adult Low Dose Aspirin) blood sugar diagnostic (Accu-Chek #100 ea 09/22/20 07/03/24 Rx Flory Plus test strips) albuterol sulfate 90 mcg/actuation 2 puff inhalation TID PRN 05/08/23 07/03/24 History aerosol inhaler Shortness Of Breath Or Wheezing ticagrelor 90 mg tablet 90 mg PO Q12H #60 tabs 09/06/23 07/03/24 Rx atorvastatin 40 mg tablet 40 mg PO QPM #90 tabs 01/13/24 07/03/24 Rx glipizide 5 mg tablet 5 mg PO DAILY #90 tabs 02/03/24 07/03/24 Rx cholecalciferol (vitamin D3) 50 50 mcg PO HS 02/14/24 07/03/24 History mcg (2,000 unit) capsule albuterol sulfate 1.25 mg/3 mL 1.25 mg (3 mL) inhalation Q4-6H 02/28/24 07/03/24 Rx solution for nebulization PRN shortness of breath or wheezing #90 mL tamsulosin 0.4 mg capsule 0.4 mg PO DAILY #90 caps 05/08/24 07/03/24 Rx pantoprazole 40 mg tablet,delayed 40 mg PO DAILY #90 tabs 05/14/24 07/03/24 Rx release metoprolol succinate 25 mg 25 mg PO Q12H #180 tabs 05/18/24 07/03/24 Rx tablet,extended release 24 hr (Toprol XL) clonazepam 0.5 mg tablet 0.5 mg PO Q12H PRN anxiety 06/19/24 07/03/24 History amlodipine 10 mg tablet 10 mg PO DAILY #30 tabs 06/24/24 07/03/24 Rx furosemide 40 mg tablet 40 mg PO DAILY #60 tabs 06/24/24 07/03/24 Rx hydralazine 25 mg tablet 25 mg PO BID #60 tabs 06/24/24 07/03/24 Rx insulin aspart U-100 100 unit/mL 1 - 2 unit subcut HS #10 mL 06/24/24 07/03/24 Rx subcutaneous solution (Novolog U-100 Insulin aspart) insulin aspart U-100 100 unit/mL 2 - 5 unit subcut TIDWM #10 mL 06/24/24 07/03/24 Rx subcutaneous solution (Novolog U-100 Insulin aspart) empagliflozin 25 mg tablet 25 mg PO QAM #30 tabs 06/25/24 07/03/24 Rx (Jardiance) isosorbide mononitrate 20 mg tablet See Rx Instructions .Route 06/25/24 07/03/24 Rx .COMPLEX #180 tabs Allergies Allergy/AdvReac Type Severity Reaction Status Date / Time No Known Allergies Allergy Unknown Verified 06/19/24 17:59 Vital Signs Vital Signs - 24 hr 07/02/24 22:37 07/02/24 22:47 07/02/24 23:32 Temperature 98.0 F Pulse Rate 109 H 104 H Respiratory Rate 20 38 H Blood Pressure 162/80 H Pulse Oximetry 95 97 98 Oxygen Delivery Nasal Cannula Nasal Cannula Oxygen Flow Rate 3 3 07/03/24 01:00 07/03/24 03:52 07/03/24 06:21 Temperature Pulse Rate 80 84 77 Respiratory Rate 24 H 23 H 21 H Blood Pressure Pulse Oximetry 99 97 98 Oxygen Delivery Oxygen Flow Rate 07/03/24 07:37 Temperature Pulse Rate 83 Respiratory Rate 22 H Blood Pressure 173/74 H Pulse Oximetry 100 Oxygen Delivery Oxygen Flow Rate Exam Narrative: GENERAL: Ill-appearing and mildly tachypneic no acute distress HEAD: [Normocephalic, atraumatic.] EYES: [PERRLA and EOMI.] ENT: Nares clear, no rhinorrhea or epistaxis. Mucous membranes moist. NECK: Supple. CHEST: Coarse breath sounds with diminished air entry and diminished breath sounds bilaterally end expiratory wheezes present HEART: [Regular rate and rhythm]. No murmur heard. [Normal peripheral pulses.] ABDOMEN: [Soft, nondistended], [nontender], [No rigidity or guarding] EXTREMITIES: Normal range of motion. lower extremity edema 1+ SKIN: Warm, dry, no rash. NEURO: [No focal deficits]. Alert and oriented [x3.] PSYCH: [Normal mood and affect.] H&P: Results Labs Labs: Short CBC 07/02/24 Range/Units 23:05 WBC 11.5 H (4.5-10.0) K/mm3 Hgb 12.9 L (14.0-18.0) g/dL Hct 40.2 L (42.0-52.0) % Plt Count 292 (150-375) k/mm3 BMP 07/02/24 23:05 Sodium 133 L Potassium 4.3 Chloride 95 L Carbon Dioxide 26 BUN 55 H Creatinine 2.20 H Glucose 383 H Calcium 8.5 Cardiac Enzymes 07/02/24 07/03/24 Range/Units 23:04 02:14 Troponin I 0.040 H* 0.035 H* (0.000-0.034) ng/mL Liver Function 07/02/24 Range/Units 23:05 Total Bilirubin 0.9 (0.2-1.3) mg/dL AST 26 (17-59) U/L ALT 25 (6-50) U/L Alkaline Phosphatase 119 (38-126) U/L Albumin 4.4 (3.5-5.1) g/dL Assessment and Plan Assessment and plan (1) Acute on chronic combined systolic and diastolic heart failure: Code(s): I50.43 - Acute on chronic combined systolic (congestive) and diastolic (congestive) heart failure Status: Acute (2) Aortic stenosis: Code(s): I35.0 - Nonrheumatic aortic (valve) stenosis Status: Acute (3) Coronary artery disease: Code(s): I25.10 - Atherosclerotic heart disease of [place] coronary artery without angina pectoris Status: Acute (4) Carotid stenosis: Code(s): I65.29 - Occlusion and stenosis of unspecified carotid artery Status: Acute (5) Hyperlipidemia: Code(s): E78.5 - Hyperlipidemia, unspecified Status: Acute (6) Type 2 diabetes mellitus: Qualifiers: Chronic kidney disease stage: stage 4 (severe) Diabetes mellitus complication detail: with chronic kidney disease Diabetes mellitus complication status: with kidney complications Diabetes mellitus seed corn production manager insulin use: without seed corn production manager use Qualified Code(s): E11.22 - Type 2 diabetes mellitus with diabetic chronic kidney disease; N18.4 - Chronic kidney disease, stage 4 (severe) Code(s): E11.9 - Type 2 diabetes mellitus without complications Status: Chronic (7) Chronic kidney disease, stage 4 (severe): Code(s): N18.4 - Chronic kidney disease, stage 4 (severe) Status: Chronic (8) Anxiety: Code(s): F41.9 - Anxiety disorder, unspecified Status: Acute (9) Depression due to physical illness: Code(s): F06.31 - Mood disorder due to known physiological condition with depressive features Status: Acute Plan this is a 79-year-old male with complex past medical history including chronic hypoxic respiratory failure from COPD on home oxygen 2 L . He also was recently admitted to the hospital for respiratory failure which was multifactorial in a combination of COPD/congestive heart failure, possible pneumonia. Since discharge after few days he started to get more short of breath which progressively got Worse. Patient has been having increased oxygen requirements at home . When he continue to could worse he called EMS. When EMS arrived he was only saturating 85% . Patient is severely tachypneic, having pursed breathing and belly breathing. Profound wheezing by EMS and he was given albuterol, DuoNeb, Solu-Medrol in route with mild improvement. Patient states it feels similar to his COPD from last week but with acutely worsening. He denied any chest pain, nausea, vomiting, abdominal pain, back pain, headache, weakness. He is completing his course of oral antibiotics that he was discharged on from recent pneumonia. On ED evaluation he was in noted to be in respiratory distress tachypneic in 30s tachycardic in low 100s. Hypoxic on 3 L oxygen. Patient was started on a BiPAP and received DuoNeb treatment. Laboratory study showed WBC of 11.5 hemoglobin of 12.9 platelet of 292. Creatinine of 2.2 which is about baseline. BNP was more than 30,000. troponin was 0.040 VBG was obtained which showed pH of 7.36 slight CO2 retention with pCO2 of 48. Bicarb was 26 chest x-ray showed worsening edema versus infiltrates. EKG without any acute ST-T changes. He is admitted in the setting for further treatment. Acute On chronic hypoxic respiratory failure needing BiPAP support on admission. Will taper down to nasal cannula. BiPAP p.r.n. Likely related to COPD exacerbation versus acute on chronic CHF exacerbation. Will continue diuresis with Lasix IV b.i.d.. Monitor renal function He was discharged on Lasix 40 mg daily. Influenza RSV COVID swab was negative History of coronary artery disease resume home medication . Status post stents in the past Elevated troponin with flat trend likely related to CHF exacerbation COPD exacerbation will give steroid antibiotics. Check procalcitonin DuoNeb schedule type 2 diabetes SSI CKD stage 4 creatinine 2.2 which is about baseline Hypertension resume home medication Hyperlipidemia on atorvastatin DVT prophylaxis Lovenox Code status do not resuscitate Hospitalist [facility] Advance Care Plan I have confirmed that the patient's Advanced Care Plan is present, code status is documented, or surrogate decision maker is listed in patient medical record.: Yes Medication Reconciliation I have utilized all available resources to obtain, update and review the patients current medications (includes all prescriptions, OTC, herbals, cannabis, and nutritional supplements).: Yes The patient is not eligible for med reconciliation; the patient is in a emergent medical situation where delaying treatment would jeopardize the patients health.: Yes
[2024-07-03] MEDS: FUROSEMIDE INJ 40 MG/4 ML VIAL IV PUSH (09:31)
[2024-07-03] MEDS: amLODIPine BESYLATE 10 MG TABLET PO (11:59)
[2024-07-03] MEDS: DOXYCYCLINE 100 MG/NS 100 ML 100 MG/100 ML BAG IVPB ×2 (11:59→21:01)
[2024-07-03] MEDS: EMPAGLIFLOZIN 25 MG TABLET PO (12:00)
[2024-07-03] MEDS: METOPROLOL SUCCINATE EXT REL 25 MG TABCR PO ×2 (12:00→21:01)
[2024-07-03] MEDS: hydrALAZINE HCL 25 MG TABLET PO ×2 (12:00→17:00)
[2024-07-03] MEDS: PANTOPRAZOLE 40 MG TABLET PO (12:00)
[2024-07-03] MEDS: ASPIRIN 81 MG ENTERIC TABLET PO (12:00)
[2024-07-03] MEDS: TAMSULOSIN HCL 0.4 MG CAPSULE PO (12:01)
[2024-07-03] MEDS: TICAGRELOR 90 MG TABLET PO ×2 (12:01→21:01)
[2024-07-03] MEDS: INSULIN ASPART (*BKC) 100 UNITS/ML SUB-Q ×3 (12:07→21:23)
[2024-07-03] MEDS: IPRATROPIUM 0.5 MG/ALBUTEROL SULFATE 2.5 MG AMPUL.NEB 3 ML INHALATION ×2 (13:19→20:30)
--- NOTE | 2024-07-03 14:07 | PC.NURSE ---
This patient, Silvano Duval, was admitted to IMU status, and placed in Intensive Care Unit-4. Patient/family oriented to hospital policies and general routines including ID bracelet, bed and alarms, visiting hours, pain management, procedures, bathroom and other care routines, personal items, smoking policy, room service/diet, and visiting hours. Valuables list has been completed. Information on how to activate the Rapid Response Team has been discussed. Patient/Family are encouraged to report perceived risks to care and to ask questions if they do not understand what they are told or what they should do.
[2024-07-03] MEDS: ISOSORBIDE MONONITRATE 20 MG TABLET BY MOUTH (14:32)
[2024-07-03] MEDS: methylPREDNISolone SOD SUCC 40 MG VIAL IV PUSH ×2 (14:32→21:14)
[2024-07-03 16:37] LABS: Glucose Point of Care 339 mg/dl (65-105)
[2024-07-03] MEDS: ATORVASTATIN 40 MG TABLET PO (17:03)
[2024-07-03] MEDS: FUROSEMIDE INJ 100 MG/10 ML VIAL 80 MG IV PUSH (17:03)
[2024-07-03 17:39] LABS: Hemoglobin A1C 7.5 % (<5.7)
--- NOTE | 2024-07-03 18:47 | PC.NURSE ---
1630- received pt from ICU 4 ( IMU Overflow ) to room 214. O2 on 4 l/nc- spo2 = @ 92; Monitor SR- pt oriented to room and routines of floor
[2024-07-03] MEDS: CHOLECALCIFEROL 1,000 UNITS TABLET 2000 UNITS PO (21:00)
[2024-07-03] MEDS: HEPARIN SODIUM 5,000 UNITS/ML VIAL 5000 UNITS SUB-Q (21:22)
[2024-07-03 21:32] LABS: Glucose Point of Care 225 mg/dl (65-105)
[2024-07-04] VITALS (30 sets, daily range): BP systolic 115–146; BP diastolic 59–97; PULSE 76–812; RESP 12–26; TEMP 36.3–36.8; O2SAT 92–99
[2024-07-04] MEDS: IPRATROPIUM 0.5 MG/ALBUTEROL SULFATE 2.5 MG AMPUL.NEB 3 ML INHALATION ×5 (00:20→19:35)
[2024-07-04] MEDS: clonazePAM (*CRX) 0.5 MG TABLET PO ×2 (00:23→20:48)
[2024-07-04 05:15] LABS: Basophils Percent Auto 0.1 % (0.2-1.2); Hematocrit 33.5 % (42.0-52.0); Hemoglobin 10.4 g/dL (14.0-18.0); Immature Granulocyte Absolute 0.16 K/mm3 (0.00-0.031); Immature Granulocyte Percent A 1.3 % (0-0.5); Lymphocytes Absolute Auto 0.28 K/mm3 (0.9-3.2); Lymphocytes Percent Auto 2.2 % (18.3-44.2); Mean Corpuscular Hemoglobin 28.1 pg (26-34); Mean Corpuscular Volume 90.5 fl (80-100); Monocytes Absolute Auto 0.4 K/mm3 (0.1-0.6); Monocytes Percent Auto 2.9 % (2.6-8.5); Neutrophils Absolute Auto 11.7 K/mm3 (1.3-6.7); Neutrophils Percent Auto 93.5 % (45.5-73.1); Platelet Count Result 236 k/mm3 (150-375); Red Cell Distribution Width 14.9 % (11.5-14.5); White Blood Count 12.5 K/mm3 (4.5-10.0)
[2024-07-04 05:28] LABS: Alanine Aminotransferase 21 U/L (6-50); Albumin Level 3.6 g/dL (3.5-5.1); Alkaline Phosphatase 77 U/L (38-126); Anion Gap 10 mmol/L (4-12); Aspartate Amino Transferase 16 U/L (17-59); Bilirubin,Total 0.5 mg/dL (0.2-1.3); Blood Urea Nitrogen 50 mg/dL (9-20); Calcium 8.4 mg/dL (8.4-10.2); Carbon Dioxide 26 mmol/L (22-30); Chloride 98 mmol/L (98-107); Estimated CRCL calculation 20 ml/min; Estimated Glomerular Filt Rate 27; Glucose 246 mg/dL (65-110); Magnesium 2.5 mg/dL (1.6-2.3); Potassium 4.1 mmol/L (3.4-5.0); Sodium 134 mmol/L (137-145)
[2024-07-04] MEDS: methylPREDNISolone SOD SUCC 40 MG VIAL IV PUSH ×2 (05:42→13:57)
[2024-07-04 07:26] LABS: Glucose Point of Care 294 mg/dl (65-105)
[2024-07-04] MEDS: ASPIRIN 81 MG ENTERIC TABLET PO (07:59)
[2024-07-04] MEDS: hydrALAZINE HCL 25 MG TABLET PO ×2 (07:59→17:17)
[2024-07-04] MEDS: PANTOPRAZOLE 40 MG TABLET PO (08:00)
[2024-07-04] MEDS: METOPROLOL SUCCINATE EXT REL 25 MG TABCR PO ×2 (08:00→20:48)
[2024-07-04] MEDS: TAMSULOSIN HCL 0.4 MG CAPSULE PO (08:00)
[2024-07-04] MEDS: TICAGRELOR 90 MG TABLET PO ×2 (08:00→20:48)
[2024-07-04] MEDS: EMPAGLIFLOZIN 25 MG TABLET PO (08:00)
[2024-07-04] MEDS: amLODIPine BESYLATE 10 MG TABLET PO (08:01)
[2024-07-04] MEDS: ISOSORBIDE MONONITRATE 20 MG TABLET BY MOUTH ×2 (08:02→13:58)
[2024-07-04] MEDS: INSULIN ASPART (*BKC) 100 UNITS/ML SUB-Q ×4 (08:02→20:52)
[2024-07-04] MEDS: HEPARIN SODIUM 5,000 UNITS/ML VIAL 5000 UNITS SUB-Q ×2 (08:03→20:51)
[2024-07-04] MEDS: FUROSEMIDE INJ 100 MG/10 ML VIAL 80 MG IV PUSH ×2 (08:07→17:17)
[2024-07-04] MEDS: DOXYCYCLINE 100 MG/NS 100 ML 100 MG/100 ML BAG IVPB ×2 (08:09→20:51)
[2024-07-04 11:45] LABS: Glucose Point of Care 283 mg/dl (65-105)
--- NOTE | 2024-07-04 13:08 | PM.IMPN ---
Progress Note: A&P Assessment and Plan (1) Acute on chronic combined systolic and diastolic heart failure: Code(s): I50.43 - Acute on chronic combined systolic (congestive) and diastolic (congestive) heart failure Status: Acute Assessment and Plan: Acute on chronic hypoxic respiratory failure needing BiPAP support on admission. Influenza RSV COVID swab was negative He was discharged on Lasix 40 mg daily last admission on 06/24/24 (up from 20mg daily) CXR showing worsening mild pulmonary edema and stable moderate sized pleural effusions with CMG. Weaned back to nasal cannula. BiPAP p.r.n. Echo Feb 2024 showing EF 40-45%, Grade III diastolic dysfunction, mild-moderate . Likely related to COPD exacerbation and/or acute on chronic CHF exacerbation. Check renal arteries. Check BCx Will continue diuresis with Lasix IV b.i.d.. Monitor renal function (2) Aortic stenosis: Code(s): I35.0 - Nonrheumatic aortic (valve) stenosis Status: Acute Assessment and Plan: As above. (3) Elevated troponin: Code(s): R79.89 - Other specified abnormal findings of blood chemistry Status: Acute Assessment and Plan: Elevated troponin with flat trend likely related to CHF exacerbation (4) Chronic kidney disease, stage 4 (severe): Code(s): N18.4 - Chronic kidney disease, stage 4 (severe) Status: Chronic Assessment and Plan: CKD stage 4. Creatinine 2.2 on admission which is about baseline Repeat Cr stable. Follow closely while on IV lasix (5) Coronary artery disease: Code(s): I25.10 - Atherosclerotic heart disease of [place] coronary artery without angina pectoris Status: Acute Assessment and Plan: History of coronary artery disease status post stents in the past. He has a history of severe multivessel CAD (not candidate for CABG due to high risk). [facility] 06/13/[address] 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 LM 70-80%, LAD diffuse disease with severe stenosis in apical segment, LCx prox 80%, RCA with diffuse disease with severe stenosis in mid PDA; PCI to prox LCx and PCI to LM. Continue ASA, metoprolol, lipitor (6) Type 2 diabetes mellitus: Qualifiers: Chronic kidney disease stage: stage 4 (severe) Diabetes mellitus complication detail: with chronic kidney disease Diabetes mellitus complication status: with kidney complications Diabetes mellitus longterm insulin use: without technician terminal and repeater use Qualified Code(s): E11.22 - Type 2 diabetes mellitus with diabetic chronic kidney disease; N18.4 - Chronic kidney disease, stage 4 (severe) Code(s): E11.9 - Type 2 diabetes mellitus without complications Status: Chronic Assessment and Plan: A1c 7.5%. The patient's blood glucose was reviewed on 07/04 Glucose poorly controlled. Continue AccuCheks covering with sliding scale. Hypoglycemia protocol available as needed. Continue to monitor (7) COPD (chronic obstructive pulmonary disease): Qualifiers: COPD type: unspecified COPD Qualified Code(s): J44.9 - Chronic obstructive pulmonary disease, unspecified Code(s): J44.9 - Chronic obstructive pulmonary disease, unspecified Status: Acute Assessment and Plan: Possible COPD exacerbation. he was started on steroids and antibiotics. DuoNeb scheduled. Oxygen requirement close to baseline so will stop steroids. (8) Hypertension: Qualifiers: Hypertension type: secondary to other renal disorders Qualified Code(s): I15.1 - Hypertension secondary to other renal disorders Code(s): I10 - Essential (primary) hypertension Status: Chronic Assessment and Plan: Patient's blood pressure was reviewed on 07/04 Blood pressure remains well controlled. Will continue to monitor. (9) Hyperlipidemia: Code(s): E78.5 - Hyperlipidemia, unspecified Status: Acute Assessment and Plan: Hyperlipidemia on atorvastatin. LFTs okay Continue Liptor Plan DVT prophylaxis Lovenox Code status do not resuscitate Subjective Date/time seen: 07/04/24 13:08 Interval history: 79yo male with ch resp failure on home O2 at 2L, COPD, CHF, CKD, and DM here for shortness of breath. Assuming care. Chart reviewed. Shortness of breath is better. Cough is nonproductive. No chest pain. He does not have sleep apnea and does wear CPAP at night. No nausea, vomiting or diarrhea. His glucose is well controlled at home. Exam Narrative: AF 97.3 115/73 87 24 98% 3L Gen - NARD Chest - distant clear BS CV - RRR S1/S2, +murmur. Tele showing PVCs Abd - Soft, NT/ND, Positive BS Ext - bilateral LE periankle and feet edema Neuro - Alert and appropriate Psych - Nml mood and affect Skin - Warm and dry Objective Data Vital Signs Vital Signs: Vital Signs - 24 hr 07/03/24 13:20 07/03/24 13:21 07/03/24 14:00 Temperature Pulse Rate 83 84 84 Respiratory Rate 24 H 24 H Blood Pressure Pulse Oximetry 95 Oxygen Delivery Nasal Cannula Oxygen Flow Rate 4 Fraction of Inspired Oxygen 07/03/24 16:00 07/03/24 16:00 07/03/24 18:00 Temperature Pulse Rate 84 84 86 Respiratory Rate 24 H Blood Pressure Pulse Oximetry 95 Oxygen Delivery Nasal Cannula Oxygen Flow Rate 4 Fraction of Inspired Oxygen 07/03/24 18:34 07/03/24 20:00 07/03/24 20:00 Temperature 97.3 F L Pulse Rate 87 86 Respiratory Rate 20 Blood Pressure 139/74 Pulse Oximetry 91 95 Oxygen Delivery Nasal Cannula Oxygen Flow Rate 4 Fraction of Inspired Oxygen 07/03/24 20:03 07/03/24 20:30 07/03/24 20:30 Temperature 97.5 F L Pulse Rate 89 89 Respiratory Rate 20 20 Blood Pressure 135/70 Pulse Oximetry 92 93 Oxygen Delivery Nasal Cannula Oxygen Flow Rate 4 Fraction of Inspired Oxygen 07/03/24 20:39 07/03/24 21:01 07/03/24 22:00 Temperature Pulse Rate 90 89 87 Respiratory Rate 20 Blood Pressure Pulse Oximetry Oxygen Delivery Oxygen Flow Rate Fraction of Inspired Oxygen 07/04/24 00:00 07/04/24 00:00 07/04/24 00:00 Temperature 97.7 F Pulse Rate 89 84 Respiratory Rate 26 H Blood Pressure 136/71 Pulse Oximetry 94 92 Oxygen Delivery Nasal Cannula Oxygen Flow Rate 5 Fraction of Inspired Oxygen 07/04/24 00:19 07/04/24 00:20 07/04/24 00:29 Temperature Pulse Rate 90 90 Respiratory Rate 22 H 21 H Blood Pressure Pulse Oximetry 98 Oxygen Delivery BiPAP Oxygen Flow Rate Fraction of Inspired Oxygen 50 07/04/24 00:30 07/04/24 02:00 07/04/24 03:16 Temperature Pulse Rate 90 83 83 Respiratory Rate 21 H 26 H Blood Pressure Pulse Oximetry 99 Oxygen Delivery Oxygen Flow Rate Fraction of Inspired Oxygen 07/04/24 03:18 07/04/24 03:21 07/04/24 04:00 Temperature Pulse Rate 83 82 Respiratory Rate 26 H 23 H Blood Pressure Pulse Oximetry 96 95 Oxygen Delivery BiPAP Oxygen Flow Rate Fraction of Inspired Oxygen 35 07/04/24 04:00 07/04/24 05:00 07/04/24 05:30 Temperature 98.2 F Pulse Rate 83 82 Respiratory Rate 23 H Blood Pressure 146/73 H Pulse Oximetry 94 92 Oxygen Delivery Nasal Cannula Oxygen Flow Rate 3 Fraction of Inspired Oxygen 07/04/24 06:00 07/04/24 07:30 07/04/24 08:00 Temperature 97.5 F L Pulse Rate 84 86 91 Respiratory Rate 22 H Blood Pressure 117/97 H Pulse Oximetry 95 Oxygen Delivery Oxygen Flow Rate Fraction of Inspired Oxygen 07/04/24 08:00 07/04/24 08:53 07/04/24 10:00 Temperature Pulse Rate 91 88 Respiratory Rate Blood Pressure Pulse Oximetry 93 Oxygen Delivery Nasal Cannula Oxygen Flow Rate 4 Fraction of Inspired Oxygen 07/04/24 11:40 07/04/24 12:15 07/04/24 12:15 Temperature 97.3 F L Pulse Rate 87 87 Respiratory Rate 20 24 H Blood Pressure 115/73 Pulse Oximetry 95 98 Oxygen Delivery Nasal Cannula Oxygen Flow Rate 3 Fraction of Inspired Oxygen 35 Intake/Output Intake/Output: Intake & Output 07/01/24 07/02/24 07/03/24 07/04/24 23:59 23:59 23:59 23:59 Intake Total 2200 577 Output Total 200 700 Balance 1999 - Meds/Results Medications: Active Medications Generic Name Dose Route Start Last Admin Trade Name Freq PRN Reason Stop Dose Admin Albuterol/Ipratropium 3 ml 07/03/24 11:15 07/04/24 08:52 Ipratropium 0.5 Mg/Albuterol Sulfate 2.5 Mg Ampul.Neb 3 Ml INHALATION 3 ml Q6HRT TOM Administration Amlodipine Besylate 10 mg 07/03/24 11:25 07/04/24 08:01 Amlodipine Besylate 10 Mg Tablet PO 10 mg DAILY TOM Administration Aspirin 81 mg 07/03/24 11:25 07/04/24 07:59 Aspirin 81 Mg Enteric Tablet PO 81 mg DAILY TOM Administration Atorvastatin Calcium 40 mg 07/03/24 18:00 07/03/24 17:03 Atorvastatin 40 Mg Tablet PO 40 mg QPM TOM Administration Clonazepam 0.5 mg 07/03/24 11:14 07/04/24 00:23 Clonazepam (*Crx) 0.5 Mg Tablet PO 0.5 mg Q12H PRN Administration anxiety Dextrose 12.5 gm 07/03/24 14:16 Dextrose 50% 25 Gm/50 Ml Syringe IV PUSH PRN PRN Hypoglycemia Protocol Empagliflozin 25 mg 07/03/24 11:25 07/04/24 08:00 Empagliflozin 25 Mg Tablet PO 25 mg QAM TOM Administration Furosemide 80 mg 07/03/24 17:00 07/04/24 08:07 Furosemide Inj 100 Mg/10 Ml Vial IV PUSH 80 mg BID TOM Administration Glucagon 1 mg 07/03/24 14:16 Glucagon For Inj 1 Mg Vial IM PRN PRN Hypoglycemia Protocol Glucose 15 gm 07/03/24 14:16 Glucose Oral Gel 15 Gm Of Glucse In 37.5 Gm Tube PO PRN PRN Hypoglycemia Protocol Heparin Sodium (Porcine) 5,000 units 07/03/24 21:00 07/04/24 08:03 Heparin Sodium 5,000 Units/Ml Vial SUB-Q 5,000 units Q12HR TOM Administration Hydralazine HCl 25 mg 07/03/24 11:25 07/04/24 07:59 Hydralazine Hcl 25 Mg Tablet PO 25 mg BID TOM Administration Ceftriaxone Sodium 1 gm in 50 mls @ 100 mls/hr 07/03/24 22:00 07/03/24 22:52 Rocephin 1 Gm/Ns 50 Ml IVPB Infused Q24H TOM Infusion Doxycycline Hyclate 100 mg in 100 mls @ 100 mls/hr 07/03/24 09:00 07/04/24 09:25 Vibramycin 100 Mg/Ns 100 Ml IVPB Infused Q12H TOM Infusion Dextrose 1,000 mls @ 100 mls/hr 07/03/24 14:16 Dextrose 5% 1,000 Ml IVPB PRN PRN Hypoglycemia Protocol Insulin Aspart 1 - 2 units 07/03/24 21:00 07/03/24 21:23 Insulin Aspart (*Bkc) 100 Units/Ml SUB-Q 1 units HS TOM Administration Protocol Insulin Aspart 2 - 5 units 07/03/24 12:00 07/04/24 11:32 Insulin Aspart (*Bkc) 100 Units/Ml SUB-Q 3 units TIDWM TOM Administration Protocol Isosorbide Mononitrate 20 mg 07/03/24 14:00 07/04/24 08:02 Isosorbide Mononitrate 20 Mg Tablet BY MOUTH 20 mg 0900,1400 TOM Administration Methylprednisolone Sodium Succinate 40 mg 07/03/24 14:00 07/04/24 05:42 Methylprednisolone Sod Succ 40 Mg Vial IV PUSH 40 mg Q8HR TOM Administration Metoprolol Succinate 25 mg 07/03/24 11:25 07/04/24 08:00 Metoprolol Succinate Ext Rel 25 Mg Tabcr PO 25 mg Q12HR TOM Administration Pantoprazole Sodium 40 mg 07/03/24 11:07/04/24 08:00 Pantoprazole 40 Mg Tablet PO 40 mg DAILY TOM Administration Tamsulosin HCl 0.4 mg 07/03/24 11:07/04/24 08:00 Tamsulosin Hcl 0.4 Mg Capsule PO 0.4 mg DAILY TOM Administration Ticagrelor 90 mg 07/03/24 11:07/04/24 08:00 Ticagrelor 90 Mg Tablet PO 90 mg Q12HR TOM Administration Vitamin D 2,000 units 07/03/24 21:00 07/03/24 21:00 Cholecalciferol 1,000 Units Tablet PO 2,000 units HS TOM Administration Radiology Results: ITS Impressions Chest X-Ray 07/04/24 05:58 Impression: 1: Stable chest. Cardiomegaly with pulmonary edema. Labs Labs: Laboratory Results - last 24 hr 07/03/24 07/03/24 07/03/24 02:14 16:34 21:03 WBC RBC Hgb Hct MCV MCH MCHC RDW Plt Count MPV Immature Gran % (Auto) Neut % (Auto) Lymph % (Auto) [place] % (Auto) Eos % (Auto) Baso % (Auto) Lymph # (Auto) [place] # (Auto) Eos # (Auto) Baso # (Auto) Abs Immat Gran (auto) Absolute Neuts (auto) Absolute Nucleated RBC Nucleated RBC % Sodium Potassium Chloride Carbon Dioxide Anion Gap BUN Creatinine Estim Creat Clear Calc Estimated GFR Glucose POC Capillary Glucose 339 H 225 H Hemoglobin A1c 7.5 H Calcium Magnesium Total Bilirubin AST ALT Alkaline Phosphatase Total Protein Albumin 07/04/24 07/04/24 07/04/24 04:54 07:23 11:18 WBC 12.5 H RBC 3.70 L Hgb 10.4 L Hct 33.5 L MCV 90.5 MCH 28.1 MCHC 31.0 L RDW 14.9 H Plt Count 236 MPV 11.0 H Immature Gran % (Auto) 1.3 H Neut % (Auto) 93.5 H Lymph % (Auto) 2.2 L [place] % (Auto) 2.9 Eos % (Auto) 0.0 Baso % (Auto) 0.1 L Lymph # (Auto) 0.28 L [place] # (Auto) 0.4 Eos # (Auto) 0.0 Baso # (Auto) 0.0 Abs Immat Gran (auto) 0.16 H Absolute Neuts (auto) 11.7 H Absolute Nucleated RBC 0.000 Nucleated RBC % 0.0 Sodium 134 L Potassium 4.1 Chloride 98 Carbon Dioxide 26 Anion Gap 10 BUN 50 H Creatinine 2.31 H Estim Creat Clear Calc 20 Estimated GFR 27 L Glucose 246 H POC Capillary Glucose 294 H 283 H Hemoglobin A1c Calcium 8.4 Magnesium 2.5 H Total Bilirubin 0.5 AST 16 L ALT 21 Alkaline Phosphatase 77 Total Protein 6.0 L Albumin 3.6
[2024-07-04] MEDS: guaiFENesin 12 HR 600 MG TABCR 1200 MG PO ×2 (13:58→20:48)
[2024-07-04 16:38] LABS: Glucose Point of Care 323 mg/dl (65-105)
[2024-07-04] MEDS: ATORVASTATIN 40 MG TABLET PO (17:17)
[2024-07-04 20:37] LABS: Glucose Point of Care 232 mg/dl (65-105)
[2024-07-04] MEDS: DOCUSATE SODIUM 100 MG CAPSULE PO (20:48)
[2024-07-04] MEDS: CHOLECALCIFEROL 1,000 UNITS TABLET 2000 UNITS PO (20:48)
[2024-07-05] VITALS (23 sets, daily range): BP systolic 122–142; BP diastolic 50–71; PULSE 78–88; RESP 14–22; TEMP 36.2–36.5; O2SAT 90–97
[2024-07-05] MEDS: PHENYLEPH/SHARK OIL/MO/PETROL CREAM 26 GM 1 APPLIC RECTAL ×2 (00:45→09:57)
[2024-07-05 05:25] LABS: Basophils Percent Auto 0.1 % (0.2-1.2); Hemoglobin 10.4 g/dL (14.0-18.0); Immature Granulocyte Absolute 0.22 K/mm3 (0.00-0.031); Immature Granulocyte Percent A 1.4 % (0-0.5); Lymphocytes Absolute Auto 0.43 K/mm3 (0.9-3.2); Lymphocytes Percent Auto 2.6 % (18.3-44.2); Mean Corpuscular HGB Conc 31.5 g/dl (32-36); Mean Corpuscular Hemoglobin 28.9 pg (26-34); Mean Corpuscular Volume 91.7 fl (80-100); Mean Platelet Volume 10.7 fl (7.4-10.4); Monocytes Percent Auto 6.4 % (2.6-8.5); Neutrophils Absolute Auto 14.6 K/mm3 (1.3-6.7); Neutrophils Percent Auto 89.5 % (45.5-73.1); Platelet Count Result 254 k/mm3 (150-375); Red Cell Distribution Width 15.4 % (11.5-14.5); White Blood Count 16.3 K/mm3 (4.5-10.0)
[2024-07-05 05:42] LABS: Alanine Aminotransferase 19 U/L (6-50); Albumin Level 3.7 g/dL (3.5-5.1); Alkaline Phosphatase 72 U/L (38-126); Anion Gap 14 mmol/L (4-12); Aspartate Amino Transferase 16 U/L (17-59); Bilirubin,Total 0.5 mg/dL (0.2-1.3); Blood Urea Nitrogen 60 mg/dL (9-20); Calcium 8.3 mg/dL (8.4-10.2); Carbon Dioxide 24 mmol/L (22-30); Chloride 96 mmol/L (98-107); Estimated CRCL calculation 19 ml/min; Estimated Glomerular Filt Rate 25; Glucose 212 mg/dL (65-110); Magnesium 2.4 mg/dL (1.6-2.3); Phosphorus 5.8 mg/dL (2.5-4.5); Potassium 4.2 mmol/L (3.4-5.0); Sodium 134 mmol/L (137-145)
[2024-07-05 07:48] LABS: Glucose Point of Care 198 mg/dl (65-105)
[2024-07-05] MEDS: IPRATROPIUM 0.5 MG/ALBUTEROL SULFATE 2.5 MG AMPUL.NEB 3 ML INHALATION ×3 (08:22→20:28)
[2024-07-05] MEDS: DOXYCYCLINE 100 MG/NS 100 ML 100 MG/100 ML BAG IVPB (09:55)
[2024-07-05] MEDS: FUROSEMIDE INJ 100 MG/10 ML VIAL 80 MG IV PUSH ×2 (09:56→17:08)
[2024-07-05] MEDS: EMPAGLIFLOZIN 25 MG TABLET PO (09:56)
[2024-07-05] MEDS: guaiFENesin 12 HR 600 MG TABCR 1200 MG PO ×2 (09:56→20:26)
[2024-07-05] MEDS: METOPROLOL SUCCINATE EXT REL 25 MG TABCR PO ×2 (09:56→20:25)
[2024-07-05] MEDS: TICAGRELOR 90 MG TABLET PO ×2 (09:56→20:25)
[2024-07-05] MEDS: hydrALAZINE HCL 25 MG TABLET PO ×2 (09:56→17:08)
[2024-07-05] MEDS: DOCUSATE SODIUM 100 MG CAPSULE PO ×2 (09:57→20:25)
[2024-07-05] MEDS: PANTOPRAZOLE 40 MG TABLET PO (09:57)
[2024-07-05] MEDS: ASPIRIN 81 MG ENTERIC TABLET PO (09:57)
[2024-07-05] MEDS: TAMSULOSIN HCL 0.4 MG CAPSULE PO (09:57)
[2024-07-05] MEDS: amLODIPine BESYLATE 10 MG TABLET PO (09:59)
[2024-07-05] MEDS: ISOSORBIDE MONONITRATE 20 MG TABLET BY MOUTH ×2 (10:01→17:07)
[2024-07-05] MEDS: HEPARIN SODIUM 5,000 UNITS/ML VIAL 5000 UNITS SUB-Q ×2 (10:01→20:30)
[2024-07-05 11:10] LABS: Glucose Point of Care 246 mg/dl (65-105)
--- NOTE | 2024-07-05 13:52 | PM.IMPN ---
Progress Note: A&P Assessment and Plan (1) Acute and chronic respiratory failure with hypoxia: Code(s): J96.21 - Acute and chronic respiratory failure with hypoxia Status: Acute Assessment and Plan: Patient presents with SOB. He has chronic resp failure from COPD on home Os at 2L. Patient with acute on chronic hypoxic respiratory failure needing BiPAP support on admission. Influenza, RSV and COVID PCR swab was negative. CXR showing worsening mild pulmonary edema and stable moderate sized pleural effusions with CMG. He was started on abx. Lasix IV once given and then scheduled. Likely related to COPD exacerbation and/or acute on chronic CHF exacerbation and/or PNA. BCx obtained after abx started. Weaned back to nasal cannula. BiPAP available p.r.n. Will continue diuresis with Lasix IV b.i.d.. Monitor renal function (2) Acute on chronic combined systolic and diastolic heart failure: Code(s): I50.43 - Acute on chronic combined systolic (congestive) and diastolic (congestive) heart failure Status: Acute Assessment and Plan: Echo Feb 2024 showing EF 40-45%, Grade III diastolic dysfunction, mild-moderate . He was discharged on Lasix 40 mg daily last admission on 06/24/24 (up from 20mg daily). Patient with acute on chronic systolic and diastolic CHF. BNP >30K. No severe right mid and distal renal artery stenosis. Poor visualization of left renal artery and right proximal renal artery Continue hydralazine/ISMO, Torpol XL and empagliflozin. Continue Lasix IV. (3) Aortic stenosis: Code(s): I35.0 - Nonrheumatic aortic (valve) stenosis Status: Acute Assessment and Plan: Mild-moderate recent Echo. As above. (4) Elevated troponin: Code(s): R79.89 - Other specified abnormal findings of blood chemistry Status: Acute Assessment and Plan: Elevated troponin with flat trend likely related to acute respiratory failure and/or CHF exacerbation (5) Chronic kidney disease, stage 4 (severe): Code(s): N18.4 - Chronic kidney disease, stage 4 (severe) Status: Chronic Assessment and Plan: CKD stage 4. Creatinine 2.2 on admission which is about baseline Repeat Cr up to 2.5. Follow closely while on IV lasix (6) Coronary artery disease: Code(s): I25.10 - Atherosclerotic heart disease of [place] coronary artery without angina pectoris Status: Acute Assessment and Plan: History of coronary artery disease status post stents in the past. He has a history of severe multivessel CAD (not candidate for CABG due to high risk). [facility] 06/13/[address] Pablo at [facility] [place]: [employer] of right common iliac artery. LM 70-80%, LAD diffuse disease with severe stenosis in apical segment, LCx prox 80%, RCA with diffuse disease with severe stenosis in mid PDA; PCI to prox LCx and PCI to LM. Continue ASA, brilinta, metoprolol, lipitor (7) Type 2 diabetes mellitus: Qualifiers: Chronic kidney disease stage: stage 4 (severe) Diabetes mellitus complication detail: with chronic kidney disease Diabetes mellitus complication status: with kidney complications Diabetes mellitus [facility] insulin use: without [facility] use Qualified Code(s): E11.22 - Type 2 diabetes mellitus with diabetic chronic kidney disease; N18.4 - Chronic kidney disease, stage 4 (severe) Code(s): E11.9 - Type 2 diabetes mellitus without complications Status: Chronic Assessment and Plan: A1c 7.5%. The patient's blood glucose was reviewed on 07/05 Glucose remains poorly controlled. Continue AccuCheks covering with sliding scale. Hypoglycemia protocol available as needed. Continue to monitor. Add lantus (8) COPD (chronic obstructive pulmonary disease): Qualifiers: COPD type: unspecified COPD Qualified Code(s): J44.9 - Chronic obstructive pulmonary disease, unspecified Code(s): J44.9 - Chronic obstructive pulmonary disease, unspecified Status: Acute Assessment and Plan: Possible COPD exacerbation. he was started on steroids and antibiotics. DuoNeb scheduled. Oxygen requirement close to baseline and no wheezing so steroids stopped. Change abx to oral route (9) Hypertension: Qualifiers: Hypertension type: secondary to other renal disorders Qualified Code(s): I15.1 - Hypertension secondary to other renal disorders Code(s): I10 - Essential (primary) hypertension Status: Chronic Assessment and Plan: Patient's blood pressure was reviewed on 07/05 Blood pressure remains well controlled. Will continue to monitor. (10) Hyperlipidemia: Code(s): E78.5 - Hyperlipidemia, unspecified Status: Acute Assessment and Plan: Hyperlipidemia on atorvastatin. LFTs okay Continue Liptor Plan DVT prophylaxis Lovenox Code status do not resuscitate Subjective Date/time seen: 07/05/24 13:52 Interval history: 79yo male with ch resp failure on home O2 at 2L, COPD, CHF, CKD, and DM here for shortness of breath. SOB better. No n/v/d. +BMs. Eating okay. Walks unassisted at home. Exam Narrative: AF 97.5 133/59 81 18 92% 3L Gen - NARD Chest - distant clear BS CV - RRR S1/S2, +murmur. Tele showing PVCs Abd - Soft, NT/ND, Positive BS Ext - bilateral LE periankle and feet edema Psych - Nml mood and affect Skin - Warm and dry Objective Data Vital Signs Vital Signs: Vital Signs - 24 hr 07/04/24 13:56 07/04/24 14:00 07/04/24 16:40 Temperature Pulse Rate 76 86 Respiratory Rate 21 H Blood Pressure Pulse Oximetry 94 Oxygen Delivery Nasal Cannula Oxygen Flow Rate 3 Fraction of Inspired Oxygen 07/04/24 16:40 07/04/24 16:46 07/04/24 19:35 Temperature 97.5 F L Pulse Rate 85 85 Respiratory Rate 12 Blood Pressure 122/59 L Pulse Oximetry 94 93 Oxygen Delivery Nasal Cannula Oxygen Flow Rate 4 Fraction of Inspired Oxygen 36 07/04/24 19:35 07/04/24 19:44 07/04/24 20:00 Temperature Pulse Rate 80 812 H Respiratory Rate 21 H 21 H Blood Pressure Pulse Oximetry 93 Oxygen Delivery Nasal Cannula Oxygen Flow Rate 3 Fraction of Inspired Oxygen 07/04/24 20:00 07/04/24 20:37 07/04/24 20:48 Temperature 97.7 F Pulse Rate 82 85 87 Respiratory Rate 22 H Blood Pressure 138/63 Pulse Oximetry 93 Oxygen Delivery Oxygen Flow Rate Fraction of Inspired Oxygen 07/04/24 22:00 07/04/24 22:10 07/05/24 00:00 Temperature Pulse Rate 86 Respiratory Rate Blood Pressure Pulse Oximetry 93 90 Oxygen Delivery Nasal Cannula Nasal Cannula Oxygen Flow Rate 4 3 Fraction of Inspired Oxygen 36 07/05/24 00:00 07/05/24 00:05 07/05/24 02:00 Temperature 97.5 F L Pulse Rate 83 83 82 Respiratory Rate 20 Blood Pressure 123/53 L Pulse Oximetry 93 Oxygen Delivery Oxygen Flow Rate Fraction of Inspired Oxygen 07/05/24 04:00 07/05/24 04:00 07/05/24 05:46 Temperature 97.6 F Pulse Rate 82 83 Respiratory Rate 20 Blood Pressure 136/58 L Pulse Oximetry 96 95 Oxygen Delivery Nasal Cannula Oxygen Flow Rate 3 Fraction of Inspired Oxygen 07/05/24 06:00 07/05/24 07:18 07/05/24 08:22 Temperature 97.2 F L Pulse Rate 81 81 82 Respiratory Rate 16 20 Blood Pressure 142/71 H Pulse Oximetry 93 93 Oxygen Delivery Nasal Cannula Oxygen Flow Rate 3 Fraction of Inspired Oxygen 07/05/24 08:22 07/05/24 08:31 07/05/24 09:56 Temperature Pulse Rate 82 83 88 Respiratory Rate 20 20 Blood Pressure Pulse Oximetry Oxygen Delivery Oxygen Flow Rate Fraction of Inspired Oxygen 07/05/24 11:28 Temperature 97.5 F L Pulse Rate 81 Respiratory Rate 18 Blood Pressure 133/59 L Pulse Oximetry 92 Oxygen Delivery Oxygen Flow Rate Fraction of Inspired Oxygen Intake/Output Intake/Output: Intake & Output 07/02/24 07/03/24 07/04/24 07/05/24 23:59 23:59 23:59 23:59 Intake Total 2200 1914 1385 Output Total 200 1000 600 Balance 1999 914 785 Meds/Results Medications: Active Medications Generic Name Dose Route Start Last Admin Trade Name Freq PRN Reason Stop Dose Admin Albuterol/Ipratropium 3 ml 07/04/24 20:00 07/05/24 08:22 Ipratropium 0.5 Mg/Albuterol Sulfate 2.5 Mg Ampul.Neb 3 Ml INHALATION 3 ml [id number] TOM Administration Amlodipine Besylate 10 mg 07/03/24 11:25 07/05/24 09:59 Amlodipine Besylate 10 Mg Tablet PO 10 mg DAILY TOM Administration Aspirin 81 mg 07/03/24 11:25 07/05/24 09:57 Aspirin 81 Mg Enteric Tablet PO 81 mg DAILY TOM Administration Atorvastatin Calcium 40 mg 07/03/24 18:00 07/04/24 17:17 Atorvastatin 40 Mg Tablet PO 40 mg QPM TOM Administration Clonazepam 0.5 mg 07/03/24 11:14 07/04/24 20:48 Clonazepam (*Crx) 0.5 Mg Tablet PO 0.5 mg Q12H PRN Administration anxiety Dextrose 12.5 gm 07/03/24 14:16 Dextrose 50% 25 Gm/50 Ml Syringe IV PUSH PRN PRN Hypoglycemia Protocol Docusate Sodium 100 mg 07/04/24 21:00 07/05/24 09:57 Docusate Sodium 100 Mg Capsule PO 100 mg Q12HR TOM Administration Empagliflozin 25 mg 07/03/24 11:25 07/05/24 09:56 Empagliflozin 25 Mg Tablet PO 25 mg QAM TOM Administration Furosemide 80 mg 07/03/24 17:00 07/05/24 09:56 Furosemide Inj 100 Mg/10 Ml Vial IV PUSH 80 mg BID TOM Administration Glucagon 1 mg 07/03/24 14:16 Glucagon For Inj 1 Mg Vial IM PRN PRN Hypoglycemia Protocol Glucose 15 gm 07/03/24 14:16 Glucose Oral Gel 15 Gm Of Glucse In 37.5 Gm Tube PO PRN PRN Hypoglycemia Protocol Guaifenesin 1,200 mg 07/04/24 13:35 07/05/24 09:56 Guaifenesin 12 Hr 600 Mg Tabcr PO 1,200 mg Q12HR TOM Administration Heparin Sodium (Porcine) 5,000 units 07/03/24 21:00 07/05/24 10:01 Heparin Sodium 5,000 Units/Ml Vial SUB-Q 5,000 units Q12HR TOM Administration Hydralazine HCl 25 mg 07/03/24 11:25 07/05/24 09:56 Hydralazine Hcl 25 Mg Tablet PO 25 mg BID TOM Administration Ceftriaxone Sodium 1 gm in 50 mls @ 100 mls/hr 07/03/24 22:00 07/04/24 22:05 Rocephin 1 Gm/Ns 50 Ml IVPB 100 mls/hr Q24H TOM Administration Doxycycline Hyclate 100 mg in 100 mls @ 100 mls/hr 07/03/24 09:00 07/05/24 09:55 Vibramycin 100 Mg/Ns 100 Ml IVPB 100 mls/hr Q12H TOM Administration Dextrose 1,000 mls @ 100 mls/hr 07/03/24 14:16 Dextrose 5% 1,000 Ml IVPB PRN PRN Hypoglycemia Protocol Insulin Aspart 1 - 2 units 07/03/24 21:00 07/04/24 20:52 Insulin Aspart (*Bkc) 100 Units/Ml SUB-Q 1 units HS TOM Administration Protocol Insulin Aspart 2 - 5 units 07/03/24 12:00 07/05/24 12:00 Insulin Aspart (*Bkc) 100 Units/Ml SUB-Q Not Given [facility] Protocol Isosorbide Mononitrate 20 mg 07/03/24 14:00 07/05/24 10:01 Isosorbide Mononitrate 20 Mg Tablet BY MOUTH 20 mg 0900,1400 TOM Administration Metoprolol Succinate 25 mg 07/03/24 11:07/05/24 09:56 Metoprolol Succinate Ext Rel 25 Mg Tabcr PO 25 mg Q12HR TOM Administration Pantoprazole Sodium 40 mg 07/03/24 11:07/05/24 09:57 Pantoprazole 40 Mg Tablet PO 40 mg DAILY TOM Administration Phenyleph/Shark Oil/Min Oil/Petrol 1 applic 07/05/24 00:25 07/05/24 09:57 Phenyleph/Shark Oil/Mo/Petrol Cream 26 Gm RECTAL 1 applic DAILY TOM Administration Tamsulosin HCl 0.4 mg 07/03/24 11:25 07/05/24 09:57 Tamsulosin Hcl 0.4 Mg Capsule PO 0.4 mg DAILY TOM Administration Ticagrelor 90 mg 07/03/24 11:07/05/24 09:56 Ticagrelor 90 Mg Tablet PO 90 mg Q12HR TOM Administration Vitamin D 2,000 units 07/03/24 21:00 07/04/24 20:48 Cholecalciferol 1,000 Units Tablet PO 2,000 units HS TOM Administration Radiology Results: ITS Impressions Chest X-Ray 07/04/24 05:58 Impression: 1: Stable chest. Cardiomegaly with pulmonary edema. Arterial/Peripheral Duplex 07/05/24 10:03 IMPRESSION: 1. No Doppler evidence of renal artery stenosis in the mid to distal right renal artery. 2. Nondiagnostic evaluation of the left renal artery and proximal right renal artery with the obtained waveforms most likely either representing venous waveforms or less likely combined arterial and venous waveforms. Labs Labs: Laboratory Results - last 24 hr 07/04/24 07/04/24 07/05/24 16:18 20:27 05:12 WBC 16.3 H RBC 3.60 L Hgb 10.4 L Hct 33.0 L MCV 91.7 MCH 28.9 MCHC 31.5 L RDW 15.4 H Plt Count 254 MPV 10.7 H Immature Gran % (Auto) 1.4 H Neut % (Auto) 89.5 H Lymph % (Auto) 2.6 L [place] % (Auto) 6.4 Eos % (Auto) 0.0 Baso % (Auto) 0.1 L Lymph # (Auto) 0.43 L [place] # (Auto) 1.0 H Eos # (Auto) 0.0 Baso # (Auto) 0.0 Abs Immat Gran (auto) 0.22 H Absolute Neuts (auto) 14.6 H Absolute Nucleated RBC 0.000 Nucleated RBC % 0.0 Sodium 134 L Potassium 4.2 Chloride 96 L Carbon Dioxide 24 Anion Gap 14 H BUN 60 H D Creatinine 2.47 H Estim Creat Clear Calc 19 Estimated GFR 25 L Glucose 212 H POC Capillary Glucose 323 H 232 H Calcium 8.3 L Phosphorus 5.8 H Magnesium 2.4 H Total Bilirubin 0.5 AST 16 L ALT 19 Alkaline Phosphatase 72 Total Protein 6.0 L Albumin 3.7 07/05/24 07/05/24 07:20 11:08 WBC RBC Hgb Hct MCV MCH MCHC RDW Plt Count MPV Immature Gran % (Auto) Neut % (Auto) Lymph % (Auto) [place] % (Auto) Eos % (Auto) Baso % (Auto) Lymph # (Auto) [place] # (Auto) Eos # (Auto) Baso # (Auto) Abs Immat Gran (auto) Absolute Neuts (auto) Absolute Nucleated RBC Nucleated RBC % Sodium Potassium Chloride Carbon Dioxide Anion Gap BUN Creatinine Estim Creat Clear Calc Estimated GFR Glucose POC Capillary Glucose 198 H 246 H Calcium Phosphorus Magnesium Total Bilirubin AST ALT Alkaline Phosphatase Total Protein Albumin
[2024-07-05 16:25] LABS: Glucose Point of Care 364 mg/dl (65-105)
[2024-07-05] MEDS: ATORVASTATIN 40 MG TABLET PO (17:07)
[2024-07-05] MEDS: INSULIN ASPART (*BKC) 100 UNITS/ML SUB-Q ×2 (17:08→20:31)
[2024-07-05 20:22] LABS: Glucose Point of Care 273 mg/dl (65-105)
[2024-07-05] MEDS: DOXYCYCLINE HYCLATE 100 MG TABLET PO (20:25)
[2024-07-05] MEDS: CHOLECALCIFEROL 1,000 UNITS TABLET 2000 UNITS PO (20:26)
[2024-07-05] MEDS: CEFDINIR 300 MG CAPSULE PO (20:26)
[2024-07-05] MEDS: INSULIN GLARGINE (*BKC) 100 UNITS/ML 9 UNITS SUB-Q (20:30)
--- NOTE | 2024-07-06 00:04 | PC.NURSE ---
This patient, Silvano Duval, was transferred to [305-2 ] on 07/06/24 at 0004. Personal belongings sent with patient. Report given to [Gustavo romero ]. Appropriate documentation sent with patient.
[2024-07-06 00:29] LABS: Glucose Point of Care 191 mg/dl (65-105)
--- NOTE | 2024-07-06 00:46 | ADMGEN ---
This patient, Silvano Duval, was a transfer from IMU to [address] [place] [address] Room 305-02. Patient/family oriented to hospital policies and general routines including ID bracelet, bed and alarms, visiting hours, pain management, procedures, bathroom and other care routines, personal items, smoking policy, room service/diet, and visiting hours. Information on how to activate the Rapid Response Team has been discussed. Patient/Family are encouraged to report perceived risks to care and to ask questions if they do not understand what they are told or what they should do.
[2024-07-06 06:00] VITALS: BP 128/65; PULSE 79; RESP 20; TEMP 36.3; O2SAT 94
[2024-07-06 06:52] LABS: Basophils Percent Auto 0.2 % (0.2-1.2); Eosinophils Absolute Auto 0.1 K/mm3 (0-0.3); Eosinophils Percent Auto 0.8 % (0-4.4); Hematocrit 34.4 % (42.0-52.0); Hemoglobin 10.8 g/dL (14.0-18.0); Immature Granulocyte Percent A 1.4 % (0-0.5); Lymphocytes Absolute Auto 0.73 K/mm3 (0.9-3.2); Lymphocytes Percent Auto 5.3 % (18.3-44.2); Mean Corpuscular HGB Conc 31.4 g/dl (32-36); Mean Corpuscular Hemoglobin 28.9 pg (26-34); Monocytes Absolute Auto 1.4 K/mm3 (0.1-0.6); Monocytes Percent Auto 10.2 % (2.6-8.5); Neutrophils Absolute Auto 11.4 K/mm3 (1.3-6.7); Neutrophils Percent Auto 82.1 % (45.5-73.1); Platelet Count Result 267 k/mm3 (150-375); Red Blood Count 3.74 M/mm3 (4.6-6.20); Red Cell Distribution Width 15.2 % (11.5-14.5); White Blood Count 13.9 K/mm3 (4.5-10.0)
[2024-07-06 07:00] LABS: Albumin Level 3.6 g/dL (3.5-5.1); Anion Gap 15 mmol/L (4-12); Blood Urea Nitrogen 64 mg/dL (9-20); Carbon Dioxide 27 mmol/L (22-30); Chloride 95 mmol/L (98-107); Estimated CRCL calculation 18 ml/min; Estimated Glomerular Filt Rate 24; Glucose 92 mg/dL (65-110); Magnesium 2.4 mg/dL (1.6-2.3); Phosphorus 6.3 mg/dL (2.5-4.5); Potassium 3.3 mmol/L (3.4-5.0); Sodium 137 mmol/L (137-145)
[2024-07-06 07:51] LABS: Glucose Point of Care 95 mg/dl (65-105)
[2024-07-06 08:00] VITALS: O2SAT 94
[2024-07-06] MEDS: POTASSIUM CHLORIDE 20 MEQ ER TABLET 40 MEQ PO (08:53)
[2024-07-06] MEDS: guaiFENesin 12 HR 600 MG TABCR 1200 MG PO (08:54)
[2024-07-06 08:55] VITALS: PULSE 82
[2024-07-06] MEDS: TICAGRELOR 90 MG TABLET PO (08:55)
[2024-07-06] MEDS: DOCUSATE SODIUM 100 MG CAPSULE PO (08:55)
[2024-07-06] MEDS: amLODIPine BESYLATE 10 MG TABLET PO (08:55)
[2024-07-06] MEDS: HEPARIN SODIUM 5,000 UNITS/ML VIAL 5000 UNITS SUB-Q (08:55)
[2024-07-06] MEDS: EMPAGLIFLOZIN 25 MG TABLET PO (08:55)
[2024-07-06] MEDS: DOXYCYCLINE HYCLATE 100 MG TABLET PO (08:55)
[2024-07-06] MEDS: TAMSULOSIN HCL 0.4 MG CAPSULE PO (08:55)
[2024-07-06] MEDS: METOPROLOL SUCCINATE EXT REL 25 MG TABCR PO (08:55)
[2024-07-06] MEDS: FUROSEMIDE 80 MG TABLET PO (08:55)
[2024-07-06] MEDS: ASPIRIN 81 MG ENTERIC TABLET PO (08:55)
[2024-07-06] MEDS: PANTOPRAZOLE 40 MG TABLET PO (08:55)
[2024-07-06] MEDS: hydrALAZINE HCL 25 MG TABLET PO ×2 (08:55→17:06)
[2024-07-06] MEDS: PHENYLEPH/SHARK OIL/MO/PETROL CREAM 26 GM 1 APPLIC RECTAL (09:02)
[2024-07-06] MEDS: ISOSORBIDE MONONITRATE 20 MG TABLET BY MOUTH ×2 (10:11→17:05)
[2024-07-06 11:31] LABS: Glucose Point of Care 183 mg/dl (65-105)
[2024-07-06 14:00] VITALS: BP 121/71; PULSE 88; RESP 20; TEMP 36.4; O2SAT 98
[2024-07-06 14:28] VITALS: PULSE 90; RESP 20
[2024-07-06] MEDS: IPRATROPIUM 0.5 MG/ALBUTEROL SULFATE 2.5 MG AMPUL.NEB 3 ML INHALATION (14:28)
[2024-07-06 14:45] VITALS: PULSE 90; RESP 20
--- NOTE | 2024-07-06 14:47 | PM.DS ---
DS: Admitting Diagnosis Discharge Date 07/06/24 Admitting Diagnosis Shortness of breath DS: Discharge Diagnosis Discharge Diagnosis (1) Acute and chronic respiratory failure with hypoxia: Code(s): J96.21 - Acute and chronic respiratory failure with hypoxia Status: Acute (2) Acute on chronic combined systolic and diastolic heart failure: Code(s): I50.43 - Acute on chronic combined systolic (congestive) and diastolic (congestive) heart failure Status: Acute (3) Aortic stenosis: Code(s): I35.0 - Nonrheumatic aortic (valve) stenosis Status: Acute (4) Elevated troponin: Code(s): R79.89 - Other specified abnormal findings of blood chemistry Status: Acute (5) Chronic kidney disease, stage 4 (severe): Code(s): N18.4 - Chronic kidney disease, stage 4 (severe) Status: Chronic (6) Coronary artery disease: Code(s): I25.10 - Atherosclerotic heart disease of [place] coronary artery without angina pectoris Status: Acute (7) Type 2 diabetes mellitus: Qualifiers: Diabetes mellitus usp insulin use: without usp use Diabetes mellitus complication status: with kidney complications Diabetes mellitus complication detail: with chronic kidney disease Chronic kidney disease stage: stage 4 (severe) Qualified Code(s): E11.22 - Type 2 diabetes mellitus with diabetic chronic kidney disease; N18.4 - Chronic kidney disease, stage 4 (severe) Code(s): E11.9 - Type 2 diabetes mellitus without complications Status: Chronic (8) COPD (chronic obstructive pulmonary disease): Qualifiers: COPD type: unspecified COPD Qualified Code(s): J44.9 - Chronic obstructive pulmonary disease, unspecified Code(s): J44.9 - Chronic obstructive pulmonary disease, unspecified Status: Acute (9) Hypertension: Qualifiers: Hypertension type: secondary to other renal disorders Qualified Code(s): I15.1 - Hypertension secondary to other renal disorders Code(s): I10 - Essential (primary) hypertension Status: Chronic (10) Hyperlipidemia: Code(s): E78.5 - Hyperlipidemia, unspecified Status: Acute DS: Summary Hospital Course Reason for hospitalization: 79yo male with chronic respiratory failure on home O2 at 2L, COPD, CHF, CKD, and DM here for shortness of breath. Please see H&P for detail. Hospital Course: Patient presented with SOB. He has chronic resp failure from COPD on home Os at 2L. Patient with acute on chronic hypoxic respiratory failure needing BiPAP support on admission. Influenza, RSV and COVID PCR swab was negative. CXR showing worsening mild pulmonary edema and stable moderate sized pleural effusions with CMG. He was started on abx. Lasix IV once given and then scheduled. Likely related to COPD exacerbation and/or acute on chronic CHF exacerbation and/or PNA. BCx obtained after abx were started but were NGTD. Weaned down to his home setting of 2Literes. Echo Feb 2024 showing EF 40-45%, Grade III diastolic dysfunction, mild-moderate . He was discharged on Lasix 40 mg daily last admission on 06/24/24 (up from 20mg daily). Patient with acute on chronic systolic and diastolic CHF. BNP >30K. No severe right mid and distal renal artery stenosis. Poor visualization of left renal artery and right proximal renal artery. We continued hydralazine/ISMO, Torpol XL and empagliflozin. He had clinical improvement. No DIMPLE/ARB due to his CKD. He was transtioned to oral lasix. He did have elevated troponin with flat trend likely related to acute respiratory failure and/or CHF exacerbation. EKG showed normal sinus rhythm with occasional PVCs, left atrial enlargement, LVH with ST-T wave changes and moderate T-wave abnormalities the lateral leads. Repeat EKG showed no significant change. He has CKD stage 4. Creatinine 2.2 on admission which is about baseline. Repeat Cr up to 2.5 with the Lasix. Patient with history of coronary artery disease status post stents in the past. He has a history of severe multivessel CAD (not candidate for CABG due to high risk). [facility] 06/13/[address] 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 LM 70-80%, LAD diffuse disease with severe stenosis in apical segment, LCx prox 80%, RCA with diffuse disease with severe stenosis in mid PDA; PCI to prox LCx and PCI to LM. We continued ASA, Brilinta, metoprolol, Lipitor. For his diabetes, his A1c 7.5%. The patient was monitored with AccuCheks covering with sliding scale. Hypoglycemia protocol was available as needed. Possible COPD exacerbation. He was started on bronchodilators, steroids and antibiotics. Oxygen requirement close to baseline and no wheezing so steroids were stopped. He feels much better. No longer SOB. Up walking to the bathroom. He overall did well and was able to be discharged home on 07/06/24. Status at Discharge Cognitive/behavioral status at discharge: stable Time Spent with Patient Time attestation: Total time spent providing and/or coordinating discharge services: 35 minutes Time spent: Greater than 30 minutes Exam Narrative: AF 97.6 121/71 90 20 98% 2L Gen - NARD Chest - decreased breath sounds in the bases o/w clear. nml RR CV - RRR S1/S2 Abd - Soft, protuberant, +BS (passing flatus) Ext - Jose hose in place Psych - Nml mood and affect Skin - Warm and dry DS: Data Data Completed and Pending Labs on day of discharge: Labs from last 24 hours 07/06/24 07/06/24 07/06/24 11:16 07:38 06:09 WBC 13.9 H RBC 3.74 L Hgb 10.8 L Hct 34.4 L MCV 92.0 MCH 28.9 MCHC 31.4 L RDW 15.2 H Plt Count 267 MPV 11.0 H Immature Gran % (Auto) 1.4 H Neut % (Auto) 82.1 H Lymph % (Auto) 5.3 L [place] % (Auto) 10.2 H Eos % (Auto) 0.8 Baso % (Auto) 0.2 Lymph # (Auto) 0.73 L [place] # (Auto) 1.4 H Eos # (Auto) 0.1 Baso # (Auto) 0.0 Abs Immat Gran (auto) 0.20 H Absolute Neuts (auto) 11.4 H Absolute Nucleated RBC 0.000 Nucleated RBC % 0.0 Sodium 137 Potassium 3.3 L Chloride 95 L Carbon Dioxide 27 Anion Gap 15 H BUN 64 H Creatinine 2.57 H Estim Creat Clear Calc 18 Estimated GFR 24 L Glucose 92 POC Capillary Glucose 183 H 95 Calcium 8.0 L Phosphorus 6.3 H Magnesium 2.4 H Albumin 3.6 07/06/24 07/05/24 07/05/24 00:22 20:19 16:14 WBC RBC Hgb Hct MCV MCH MCHC RDW Plt Count MPV Immature Gran % (Auto) Neut % (Auto) Lymph % (Auto) [place] % (Auto) Eos % (Auto) Baso % (Auto) Lymph # (Auto) [place] # (Auto) Eos # (Auto) Baso # (Auto) Abs Immat Gran (auto) Absolute Neuts (auto) Absolute Nucleated RBC Nucleated RBC % Sodium Potassium Chloride Carbon Dioxide Anion Gap BUN Creatinine Estim Creat Clear Calc Estimated GFR Glucose POC Capillary Glucose 191 H 273 H 364 H Calcium Phosphorus Magnesium Albumin Preliminary micro results at discharge 07/04/24 15:18 Blood Culture - Preliminary Blood 07/04/24 15:12 Blood Culture - Preliminary Blood Discharge Plan Discharge Attending physician on discharge: Gee Diaz Discharging Clinician: Gee Diaz Anticipated Discharge Date/Time: 07/06/24 15:02 Patient Disposition: Home Health Service Activity: as tolerated Diet: heart healthy and diabetic Discharge Instructions: Per Care Coordination Patient is current with [facility], please resume HH at discharge. [phone]. Continue to wear compression socks on in the morning and off at night. Continue to wear oxygen 2Literes at all times. Please check glucose before meals and before bed. Record and bring into your doctor for review. Check blood pressure 1 to 2 times a day. Record and bring into your doctor for review. Call your doctor if your blood pressure is greater than 180/110. Please complete your antibiotic course even if you are starting to feel well. Take precautions to avoid falls. Rise slowly from a lying or sitting position. Pause before standing or walking. Check daily morning weights after voiding. Call your doctor if you gain more than 3 lb in 2 days or 5 lb in 1 week. Contact your doctor or call 911 and come to the Emergency Room if you have any type of trauma, lightheadedness with standing or other worrisome symptoms. Avoid NSAIDs (ibuprofen, naproxen, Aleve). Tylenol is safe to take. Follow-up with your primary care provider in 1-2 weeks. Please call for appointment. Thank you for using [facility] for your health care needs. Patient Instructions: Antibiotic Form Patient Language: Romansh Stand Alone Forms: General Discharge Information Follow-up/Referrals: Ace Tavares DO [Primary Care Provider] - Call for Appointment Discharge Medications: New furosemide 80 mg Tablet 80 mg PO DAILY Qty: 30 1RF cefdinir 300 mg Capsule 300 mg PO 2100 Qty: 3 0RF doxycycline hyclate 100 mg Tablet 100 mg PO Q12HR Qty: 2 0RF Continued aspirin [Adult Low Dose Aspirin] 81 mg tablet,delayed release (DR/EC) 81 mg PO DAILY cholecalciferol (vitamin D3) 50 mcg (2,000 unit) capsule 50 mcg PO HS albuterol sulfate 1.25 mg/3 mL solution for nebulization 1.25 mg inhalation Q4-6H PRN (Reason: shortness of breath or wheezing) Qty: 90 2RF albuterol sulfate 90 mcg/actuation HFA aerosol inhaler 2 puff INHALATION TID PRN (Reason: Shortness Of Breath Or Wheezing) clonazepam 0.5 mg tablet 0.5 mg PO Q12H PRN (Reason: anxiety) hydralazine 25 mg Tablet 25 mg PO BID Qty: 60 1RF amlodipine 10 mg Tablet 10 mg PO DAILY Qty: 30 1RF insulin aspart U-100 [Novolog U-100 Insulin aspart] 100 unit/mL Solution 1 - 2 unit subcut HS Qty: 10 0RF Protocol: Insulin Corrective Low-Dose Condition: glucose < 70 mg/dl Dose/Route: Follow Hypoglycemia Order Condition: glucose 70-200 mg/dl Dose/Route: No additional insulin Condition: glucose 201-250 mg/dl Dose/Route: 1 units sub-Q Condition: glucose 251-300 mg/dl Dose/Route: 1 units sub-Q Condition: glucose 301-350 mg/dl Dose/Route: 2 units sub-Q Condition: glucose 351-400 mg/dl Dose/Route: 2 units sub-Q Condition: glucose > 400 mg/dl Dose/Route: Call insulin aspart U-100 [Novolog U-100 Insulin aspart] 100 unit/mL Solution 2 - 5 unit subcut TIDWM Qty: 10 0RF Protocol: Insulin Corrective Low-Dose Condition: glucose < 70 mg/dl Dose/Route: Follow Hypoglycemia Order Condition: glucose 70-200 mg/dl Dose/Route: No additional insulin Condition: glucose 201-250 mg/dl Dose/Route: 2 units sub-Q Condition: glucose 251-300 mg/dl Dose/Route: 3 units sub-Q Condition: glucose 301-350 mg/dl Dose/Route: 4 units sub-Q Condition: glucose 351-400 mg/dl Dose/Route: 5 units sub-Q Condition: glucose > 400 mg/dl Dose/Route: Call Protocol Text: *No Correction Dose at Bedtime* (DME) Accu-Chek Flory Plus test strp Strip See Rx Instructions .ROUTE .MEDSUPPLY Qty: 100 4RF Rx Instructions: Use to check BS BID ticagrelor 90 mg tablet 90 mg PO Q12H Qty: 60 4RF atorvastatin 40 mg tablet 40 mg PO QPM Qty: 90 1RF glipizide 5 mg tablet 5 mg PO DAILY Qty: 90 0RF tamsulosin 0.4 mg capsule 0.4 mg PO DAILY Qty: 90 1RF pantoprazole 40 mg tablet,delayed release (DR/EC) 40 mg PO DAILY Qty: 90 1RF metoprolol succinate [Toprol XL] 25 mg tablet extended release 24 hr 25 mg PO Q12H Qty: 180 1RF Jardiance 25 mg tablet 25 mg PO QAM Qty: 30 6RF isosorbide mononitrate 20 mg tablet See Rx Instructions .ROUTE .COMPLEX Qty: 180 0RF Dose Instruction: TAKE 1 TABLET BY MOUTH TWICE A DAY -GIVE DOSES 7 HOURS APART Rx Instructions: TAKE 1 TABLET BY MOUTH TWICE A DAY -GIVE DOSES 7 HOURS APART Discontinued furosemide 40 mg Tablet 40 mg PO DAILY Qty: 60 0RF Other Ambulatory Orders: Basic Metabolic Panel (Routine) Timeframe: [id number] Location: Determined by Patient Ordered By: Gee Diaz Date of admission: 07/03/24 01:21 Primary Care Provider: Ace Tavares Admitting Provider: Osmel Weber V. Attending physician on admission: Osmel Weber V. Condition: Stable Hospitalist MIPS Heart Failure (Exclusion) Patient has history of Heart Transplant or Left Ventricular Assistive Device?: No IF YES, STOP HERE Heart Failure (Qualifier) Patient has current or prior documentation of LVEF less than or equal to 40%, or mod/servere depressed LVSF?: Yes IF NO, STOP HERE If Yes, Heart Failure (Qualifier) Patient was prescribed or already taking an Angiotensin-Converting Enzyme (DIMPLE) Inhibitor, or Antiotensin Receptor [place] (ARB): No Patient was prescribed or already taking bisoprolol, carvedilol, or sustained release metoprolol succinate: Yes If Medications not prescribed/taking Reason patient not prescribed/taking DIMPLE or ARB: Medical reasons: allergy, intolerance, contraindication or other
[2024-07-06 16:40] LABS: Glucose Point of Care 198 mg/dl (65-105)
[2024-07-06] MEDS: ATORVASTATIN 40 MG TABLET PO (17:06)
[2024-07-06 19:03] LABS: Pneumococcal Antigen Urine NOT DETECTED
[2024-07-07 18:48] LABS: Mycoplasma IgM Antibody Titer 82 U/mL
[2024-07-07 22:59] LABS: Legionella pneumophila Ag Ur NOT DETECTED
== END 2024-07-06 18:50 | disposition home health service (06) | DRG 189 ==
LOC: ANHED 23:12 → ANHIMU 07-03 01:37 → ANHICU 07-03 09:24 → ANHIMU 07-03 16:28 → ANH3MEDSUR 07-06 08:39 → ANHIMU 07-09 15:08
PROVIDERS: Internal Medicine; Admitting Provider Internal Medicine; Emergency Provider Student in an Organized Health Care Education/Training Program; PCP Internal Medicine; Visit Provider Internal Medicine
DX: J96.21 Acute and chronic respiratory failure with hypoxia (principal); I50.43 Acute on chronic combined systolic (congestive) and diastolic (congestive) heart failure; J18.9 Pneumonia, unspecified organism; I13.0 Hypertensive heart and chronic kidney disease with heart failure and stage 1 through stage 4 chronic kidney disease, or unspecified chronic kidney disease; N18.4 Chronic kidney disease, stage 4 (severe); J44.1 Chronic obstructive pulmonary disease with (acute) exacerbation; J44.0 Chronic obstructive pulmonary disease with (acute) lower respiratory infection; J96.22 Acute and chronic respiratory failure with hypercapnia; I35.0 Nonrheumatic aortic (valve) stenosis; I25.10 Atherosclerotic heart disease of native coronary artery without angina pectoris; E11.22 Type 2 diabetes mellitus with diabetic chronic kidney disease; K21.9 Gastro-esophageal reflux disease without esophagitis; E78.5 Hyperlipidemia, unspecified; F41.9 Anxiety disorder, unspecified; I65.23 Occlusion and stenosis of bilateral carotid arteries; I73.9 Peripheral vascular disease, unspecified; I70.1 Atherosclerosis of renal artery; F06.31 Mood disorder due to known physiological condition with depressive features; Z99.81 Dependence on supplemental oxygen; Z95.5 Presence of coronary angioplasty implant and graft; Z86.718 Personal history of other venous thrombosis and embolism; I25.2 Old myocardial infarction; Z79.82 Long term (current) use of aspirin; Z87.891 Personal history of nicotine dependence
CPT/HCPCS: 36415; 71045; 80053; 80069; 82803; 82948; 83036; 83735; 83880; 84100; 84484; 85025; 86738; 87040; 87449; 87637; 87899; 93005; 93976; 94002; 94003; 94640; 96361; 96365; 96367; 96368; 97161; 97165; 99285; A9270; J0696; J1644; J1815; J1940; J2919; J3475; J7120

== ENCOUNTER 2024-07-12 11:10 | Inpatient (IN) | payer MEDICARE, SELFPAY ==
[2024-07-12] VITALS (15 sets, daily range): BP systolic 107–143; BP diastolic 52–91; PULSE 80–87; RESP 19–33; TEMP 36.4–36.7; O2SAT 94–98; BMI 22.1
--- NOTE | ~2024-07-12 | XR_ITS ---
EXAMINATION: XR chest 2V DATE: 07/12/2024 14:09 INDICATION: Cough. Shortness of breath. TECHNIQUE: Frontal and lateral views of the chest were obtained. COMPARISON: Chest view 07/04/2024 FINDINGS: There are small pleural effusions. There are airspace opacities at the lung bases. No pneum othorax. Cardiomegaly is noted. There is mild chronic anterior wedging of multiple vertebral bodies. IMPRESSION: 1. Airspace opacities at the lung bases, consistent with atelectasis versus pneumonia. 2. Small pleural effusions. 3. Cardiomegaly. Reviewed, dictated and finalized at location A. Y OPERATOR IMPRESSION: 1. Airspace opacities at the lung bases, consistent with atelectasis versus pne umonia. 2. Small pleural effusions. 3. Cardiomegaly.
--- NOTE | ~2024-07-12 | CT_ITS ---
CT Scan of the Chest without Contrast: Clinical Indication: Shortness of breath Technique: Contiguous sections were acquired throughout the chest without intravenous contrast. Dose reduction technique was used on this scan by utilizing automated exposure control and iterative recon struction technique. The dose-length product (DLP) was 286.97 mGy-cm. COMPARISON: 06/19/2024 Findings: Multiple bilateral enlarged mediastinal lymph nodes are similar to prior exam. There are extensive at herosclerotic calcifications of the aorta and coronary arteries. No pericardial effusion. Moderate to large bilateral pleural effusions are similar to prior exam, with bibasilar atelectatic c hange. There is mild emphysema and probable mild interstitial pulmonary edema. Images through the upper abdomen reveal small amount of upper abdominal ascites. Impression: Moderate to large bilateral pleural effusions with bibasilar atelectatic change and probable mild pul monary edema. Suspected underlying mild emphysema. Small amount of upper abdominal ascites. Mild mediastinal lymphadenopathy, nonspecific, unchanged. Reviewed, dictated and finalized at [facility]. TER SAXOPHONES Impression: Moderate to large bilateral pleural effusions with bibasilar atelectatic change and probable mild pulmonary edema. Suspected underlying mild emphysema. Small amount of upper abdominal ascites. Mild mediastinal lymphadenopathy, nonspecific, unchanged.
--- NOTE | ~2024-07-12 | XR_ITS ---
EXAMINATION: XR chest 1V portable DATE: 07/18/2024 15:24 INDICATION: Influenza. Fluid overload. TECHNIQUE: frontal view of the chest was obtained. COMPARISON: Chest CT dated 07/16/2024 and chest radiograph dated 07/12/2024 FINDINGS: Diffuse interstitial and airspace opacities in both lungs relatively sparing the apices. No pneumotho rax. Hazy opacities in bilateral lower lung zones with blunting at the costophrenic angles consistent with small bilateral posterior layering pleural effusions. Mild cardiomegaly. IMPRESSION: 1. Diffuse bilateral lung disease consistent with mild to moderate pulmonary edema and/or pneumonia. 2. Small bilateral pleural effusions. 3. Mild cardiomegaly. Reviewed, dictated and finalized at location A. NCIAL ADMINISTRATIVE ASSISTANT IMPRESSION: 1. Diffuse bilateral lung disease consistent with mild to moderate pulmonary ed jennifer and/or pneumonia. 2. Small bilateral pleural effusions. 3. Mild cardiomegaly.
--- OUTSIDE RECORDS SUMMARY | 2024-07-12 11:37 | XMS_ITS | Clinical Summary ---
Author Organization [facility] Address [address] [place] [id number] Care Team Providers Care Project Designer Name Role Phone Ace Tavares DO Primary Care Provider [phone] Tony Hernandez MD Unavailable [phone] Leatha Ramirez ANP-BC Unavailable Unavailab le Active [...] age to complete this topic Insurance HUMA[employer] Member Subscriber Plan / Payer (Ef fective 2017-Present) Name:Silvano Renee Relation to Subscriber:Self Name:SILVANO RENEE Payer ID:[id number] (NAIC) Type:Not on file Address: [place] [id number] Care Teams Project Designer Relationship Specialty Start Date End Date Ace Tavares DO [address] [facility] [address] [place] [id number] PCP - General INTERNAL MEDICINE 11/05/15 Tony Hernandez MD [address] [address] [employer] CARDIOVASCULAR DISEASE 11/05/15 Leatha Ramirez, ANP- [address] [address] Nurse Practitioner NURSE PRACTITIONER 04/14/16
--- OUTSIDE RECORDS SUMMARY | 2024-07-12 11:37 | XMS_ITS | Referral Summary ---
Author Organization [facility] at the [facility] Address [address] [place] [address] Care Team Providers Care Carpet Finishing Supervisor Name Role Phone Ace Tavares DO Primary Care Provider [phone] Becky Cisneros MD Unavailable [phone] Allergies No known active allergies Medications atorvastatin [...] 07/01/2023 Assessment & Plan (07/01/2023 11:59 AM MOCK UP MAKER): LVEF was 45%. Continue metoprolol and Bidil. NSTEMI (non-ST elevated myocardial infarction) ( [facility]) 06/12/2023 Protein-calorie malnutrition, moderate ([facility]) 06/12/2023 Coronary artery disease 05/19/2023 Assessment & Plan (07/01/2023 11:59 AM MOCK UP MAKER): Status post successful complex PCI of the left main LAD and circumflex. The patient is asymptomatic. Continue aspirin and Brilinta. Cardiorenal syndrome 05/17/2023 Chronic kidney disease 05/17/2023 CKD (chronic kidney disease) stage 4, GFR 15-29 ml/min ([facility]) 05/16/2023 Systolic congestive heart failure ([facility]) 05/06 Murmur, heart 05/15/2023 Renal insufficiency 05/15/2023 History of CHF (congestive heart failure) 2022 Dizziness 04/02/2019 Dyslipidemia 04/02/2019 H/O: stroke 04/02/2019 PAOD (peripheral arterial occlusive disease) ([facility]) 04/02/2019 Paroxysmal A-fib ([facility]) 04/02/2019 Essential hypertension 03/19/2019 Assessment & Plan (03/19/2019 10:57 AM CDT): Controlled. Pre-operative clearance 03/19/2019 Assessment & Plan (03/19/2019 10:57 AM CDT): Limited aerobic capacity. Recommend pharmacological stress test Stenosis of left carotid artery 03/01/2019 Assessment & Plan (04/11/2019 9:47 AM MOCK UP MAKER): Patient has prior left hemispheric stroke with [...] 02/12/2019 Assessment & Plan (04/11/2019 9:46 AM MOCK UP MAKER): Per patient blood glucose levels remain controlled. Continue current regimen per primary care visit Dysarthria 02/12/2019 Elevated serum creatinine 02/12/2019 Expressive aphasia 02/12/2019 Hyperlipemia 02/12/2019 Assessment & Plan (07/01/2023 11:59 AM MOCK UP MAKER): Continue atorvastatin 40 mg daily. Assessment & Plan (04/11/2019 9:46 AM MOCK UP MAKER): For patient cholesterol levels remain controlled. Continue current statin therapy per Cardiology recommendations. Assessment & Plan (03/19/2019 10:56 AM CDT): Agree with statin. Left-sided weakness 02/12/2019 Smoker 02/12/2019 Assessment & Plan (04/11/2019 9:48 AM MOCK UP MAKER): Unfortunately patient continues to smoke. Greater than [...] quit within 3 months period Atherosclerosis of [place] of both lower extremities with intermittent claudication 11/19/2016 Carotid occlusion, right 11/12/2016 Assessment & Plan (03/27/2019 2:33 PM CDT): Known chronic occlusion of the right internal carotid artery that does not require surgical intervention. Continue ongoing risk factor modification. Assessment & Plan (03/19/2019 10:56 AM CDT): Recommend nuclear stress test before clearance Atherosclerosis of [place] of extremity with intermittent claudication [...] materials from doctor or pharmacy Never 08/25/2023 [facility] Utilities Answer Date Recorded In the past 12 months has th e [employer], gas, oil, or water [employer] threatened to shut off services in your home? No 06/13/2023 Social Connection and Isolation Panel [NHANES] A nswer Date Recorded In a typical week, how many times do you talk on the phone with family, friends, or neighbors? Once a week 06/13/2023 How often do you get together with friends or re latives? Once a week 06/13/2023 How often do you attend druze or hoahaoism serv ices? Never 06/13/2023 Do you belong to any clubs o r organizations such as druze groups, unions, fraternal or athletic groups, or [...] place to sleep or slept in a snf (including now)? No 06/13/2023 Personal Safety Answer Date Recorded Have you ever been in or are you currently in a harmful physical or emotional relationship or is someone making you feel afraid or unsafe? Denies 06/12/2023 Sex and Gender Information Value Date Recorded Sex Assigned at Not on file Legal Sex Male 10:52 AM MOCK UP MAKER Gender Identity Not on file Sexual Orientation Not on file Last Filed Vital Signs Vital Sign Reading Time Taken Comments Blood Pressure 139/69 08/25/2023 11:16 AM CDT Pulse 90 08/25/2023 11:16 AM CDT Temperature 36.8 C (98.2 F) 08/25/2023 11:16 AM CDT Respiratory Rate 18 08/25/2023 11:16 AM CDT Oxygen Saturation 99% 08/25/2023 11:16 AM CDT Inhaled Oxygen Concentration - - Weight 59.9 kg (132 lb) 08/01/2023 3:09 PM MOCK UP MAKER Height 167.6 cm (5' 6 ) 08/01/2023 3:09 PM MOCK UP MAKER Body Mass Index 21.31 08/01/2023 3:09 PM MOCK UP MAKER Plan of Treatment Not on file Medical Devices Implanted Type Area Threader Device Identifier Shelf Expiration Date Model / Serial / Lot Medtronic [facility] Vas Surgery 3.5 X 12mm [place] Rx Coronary Stent [id number] - [id number] Implanted:Qty: 1 on 06/13/2023 by Luke Pablo MD at [facility] Medtronic [facility] Vasc Surgery 11/09/2025 [id number] UX / / [id number] Medtronic [facility] Surgery 3.5 X 12mm [place] Rx Coronary Stent [id number] - [id number] Implanted:Qty: 1 on 06/13/2023 by Luke Pablo MD at [facility] Medtronic [facility] Vasc Surgery 02/03/2026 [id number] UX / / [id number] Medtronic Inc Protege Gps Exprt 9mm .079in 60mm 120cm Otw Delivery System Self - [id number] Implanted:Qty: 1 on 06/13/2023 by Luke Pablo MD at [facility] Medtronic Inc 11/07/2023 [id number] 0-120 / / [id number] Medtronic Inc Everflex Entrust 8mm 60mm 120cm Self Expand Triaxial Low Profile - [id number] Implanted:Qty: 1 on 06/13/2023 by Luke Pablo MD at [facility] Medtronic Inc 01/16/2026 [id number] 0-120 / / [id number] Medtronic Inc Everflex Od7 Mm L30 Mm L120 Cm Self Expand Delivery Catheter System Spiral Cell Peak To Peak Connection Node Peripheral Stent Vascular Accepts .035 In Guidewire 6 Fr Introducer Sheath 5. Implanted:Qty: 1 on 06/13/2023 by Luke Pablo MD at [facility] Medtronic Inc 01/03/2026 [id number] 0-120 / / [id number] Cordis Mynxgrip 6-7fr Balloon Catheter Integrate Sealant Lock Latex Free [id number] - [id number] Implanted:Qty: 1 on 06/13/2023 by Luke Pablo MD at [facility] Cord 08/03/2023 [id number] / / [id number] Procedures Procedure Name Priority Date/Time Associated Diagnosis Comments EGFR Routine 06/19/2023 5:10 AM MOCK UP MAKER HEMOGLOBIN A1C STAT 05/14/2023 5:27 AM MOCK UP MAKER CTA ABDOMINAL AORTA AND BILATERAL ILIOFEMORAL RUNOFF Routine 08/21/2013 2:17 PM CDT from Last 3 Months or Most Recently Relevant to Health Maintenance Results * eGFR (06/19/2023 5:10 AM MOCK UP MAKER) Pathologist [facility] eGFR 33 mL/min/1. 73 m2 SHERYL DURBIN Comment: Interpretive Data Reference Interval Normal >/= 90 mL/min/1.73m2 Mildly decreased* 60 - 89 mL/min/1.73m2 Mildly to moderately decreased 45 - 59 mL/min/1.73m2 Moderately to severely decreased 30 - 44 mL/min/1.73m2 Severely decreased 15 - 29 mL/min/1.73m2 Kidney Failure < 15 mL/min/1.73m2 *Relative to young adult level Estimated glomerular [...] last reviewed 2021. Blood 06/19/2023 5:10 AM MOCK UP MAKER 06/19/2023 5:30 AM MOCK UP MAKER us Leatha Hassan NP LAB BLOOD ORDERABLES F inal Result SHERYL [id number] [address] [place] [address] * (ABNORMAL) Hemoglobin A1c (05/14/2023 5:27 AM MOCK UP MAKER) Hgb A1C 6.5(H) 4.0 - 5.6 % SHERYL VIVEROS Estimated Average Glucose 140 mg/dL SHERYL VIVEROS Comment: The ADA recommends reporting an estimated Average Glucose (eAG) with all Hemoglobin A1c results using the equation derived from a study of 507 normal and diabetic adults. Minority populations were underrepresented and children were not included. (Diabetes Care 31:9890-4297, 2008). The eAG is not equivalent to a fasting glucose. Blood 05/14/2023 5:27 AM MOCK UP MAKER 05/14/2023 5:30 AM MOCK UP MAKER us Lc Dunbar MD LAB BLOOD ORDERABLES Final Result SHERYL [address] [facility] [place] [address] * CTA Abdominal Aorta And Bilateral Iliofemoral Runoff W WO Contrast (08/21/2013 2:17 PM CDT) Anatomical Region Laterality Modality Body Bilateral Computed Tomogra phy 08/21/2013 2:17 PM CDT Narrative 08/21/2013 4:18 PM CDT OK OLSEN M.D. BECKY SCHAFFER M.D. FINAL REPORT The radiology attending physician has personally reviewed this study, and has reviewed and/or edited this written report and agrees with it. [facility]# Date Time Exam [id number] Aug 21, 2013 14:17:[id number] Angio Abd & AIF wwo con [...] gallbladder were communicated to Dr. Parker's medical laboratory scientist Lisa Cowan by Dr. Schaffer at 4:00 p.m. on 08/21/2013. Requested By: PORTER PARKER M.D. Dictated By: BECKY SCHAFFER M.D. on Aug 21 2013 4:04P This document has been electronically signed by: OK OLSEN M.D. on Aug 21 2013 4:18P Procedure Note Provider, MD Mukesh - 10/10/2016 OK OLSEN M.D. BECKY SCHAFFER M.D. FINAL REPORT The radiology attending physician has personally reviewed this study, and has reviewed and/or edited this written report and agrees with it. [facility]# Date Time Exam [id number] Aug 21, 2013 14:17:[id number] Angio Abd & AIF wwo con [...] gallbladder were communicated to Dr. Parker's medical laboratory scientist Lisa Cowan by Dr. Schaffer at 4:00 p.m. on 08/21/2013. Requested By: PORTER PARKER M.D. Dictated By: BECKY SCHAFFER M.D. on Aug 21 2013 4:04P This document has been electronically signed by: OK OLSEN M.D. on Aug 21 2013 4:18P us Historical Provider MD DENIS CT PROCEDURES Final R esult from Last 3 Months or Most Recently Relevant to Health Maintenance Insurance HU[employer]NA MEDICARE HMO HU[employer]NA MEDICARE HMO Advance Directives For more information, please contact: [phone] * Full Code (Latest Code Status on File) Date Activated Date Inactivated Comments 06/12/2023 8:49 AM 06/19/2023 8:52 PM * Full Code Date Activated Date Inactivated Comments 05/14/2023 3:50 AM 05/21/2023 12:01 AM Care Teams Carpet Finishing Supervisor Relationship Specialty Start Date End Date Ace Tavares DO PCP - General Internal Medicine 02/22/19 Becky Cisneros MD Nurse Auditor Cardiovascular Disease 03/19/19
--- OUTSIDE RECORDS SUMMARY | 2024-07-12 11:37 | XMS_ITS | Clinical Summary ---
Author Organization [facility] Address [address] [place] [address] Phone Care Team Providers Care Leadership Recruiter Name Role Phone KamilalissetteAce adamson Primary Care [...] 85 02/14/2019 3:10 AM CDT Temperature 36.4 C (97.6 F) 02/14/2019 12:52 PM CDT Respiratory Rate 16 02/14/2019 12:5 [...] - 6.0 % 02/13/2019 4:52 AM CDT [facility] Est Average Glucose 139.9 mg/dL 02/13/2019 4:52 AM CDT [facility] Blood specimen (specimen) Venipuncture / Unknown 02/13/2019 4:14 AM CDT 02/13/2019 4:20 AM CDT Narrative [facility] - 02/13/2019 4:52 AM CDT Specimens containing greater than 5% of Hemoglobin F may result in lower than expected % HbA1C results. us Mason Sweeney DO CHEMISTRY ORDERABLES Final R esult Performing Organization Address City/State/[facility] Co de Phone Number [facility] [address] [place] [address], from Last 3 Months or Most Recently Relevant to Health Maintenance Insurance MEDICARE C [employer] Advance Directives * Full Code (Latest Code Status on File) Date Activated Date Inactivated Comments 02/12/2019 4:03 PM 02/14/2019 3:46 PM CPR-Full Pamela tment: FULL ARREST: Attempt Resuscitation/CPR wit intubation and mechanical ventilation. PRE-ARREST: Use entire range of life support measures to stabilize the patient. Care Teams Leadership Recruiter Relationship Specialty Start Date End Date Ace Tavares DO [facility] [place] [address] PCP - General Internal Medicine 02/12/19
--- OUTSIDE RECORDS SUMMARY | 2024-07-12 11:37 | XMS_ITS | Clinical Summary ---
Author Organization [facility] Address [address] [place] [address] Phone Care Team Providers Care Information Systems Architect Name Role Phone KamilalissetteAce adamson DO Primary Care Provider [phone] Allergies No known active allergies Medications Medication [...] AM CDT Pulse - - Temperature 36.6 C (97.9 F) 02/16/2021 9:47 AM CDT Respiratory Rate 18 02/16/2021 9:47 AM CDT [...] 2010 Influenza Vaccine (#1) 2024 Care Teams Information Systems Architect Relationship Specialty Start Date End Date Ace Tavares DO [address] [place] [id number] PCP - General Internal Medicine 10/31/18
--- OUTSIDE RECORDS SUMMARY | 2024-07-12 11:37 | XMS_ITS | CONTINUITY OF CARE DOCUMENT ---
Author Name missy louis Address Unknown Organization [facility] Address [address] [place] [address] Phone [phone] Care Team Providers Care Mapping Editor Name Role Phone missy louis Unavailable Unavailable INSURANCE PROVIDERS Payer name Policy type / Coverage type [place] red democrat ID [employer] PPO Other [id number]
--- OUTSIDE RECORDS SUMMARY | 2024-07-12 11:37 | XMS_ITS | Encounter Summary ---
Author Organization [facility] Care Team Providers Care Continuous Improvement Intern Name Role Phone Ace Tavares DO Primary Care Provider [phone] Gustavo Cisneros MD Unavailable [phone] Encounter Details Date Type Department Care Team (Latest Contact Info) Description 11/26/2016 Orders Only [facility] CLINCONV ProviderMukesh MD [address] [place] [address] Social History Tobacco Use Types Packs/Day Years Used Date Smoking Tobacco: Never Assessed Sex and Gender Information Value Date Recorded Sex Assigned at Not on file Legal Sex Male 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
--- OUTSIDE RECORDS SUMMARY | 2024-07-12 11:37 | XMS_ITS | Clinical Summary ---
Author Organization [facility] Address [address] [place] [address] Care Team Providers Care Sem Manager Name Role Phone Ace Tavares DO Primary Care Provider [phone] Becky Cisneros MD Unavailable [phone] Allergies No known active allergies Medications atorvastatin [...] 07/01/2023 Assessment & Plan (07/01/2023 11:59 AM OBJECT ORIENTED DEVELOPER): LVEF was 45%. Continue metoprolol and Bidil. NSTEMI (non-ST elevated myocardial infarction) ( [facility]) 06/12/2023 Protein-calorie malnutrition, moderate ([facility]) 06/12/2023 Coronary artery disease 05/19/2023 Assessment & Plan (07/01/2023 11:59 AM OBJECT ORIENTED DEVELOPER): Status post successful complex PCI of the left main LAD and circumflex. The patient is asymptomatic. Continue aspirin and Brilinta. Cardiorenal syndrome 05/17/2023 Chronic kidney disease 05/17/2023 CKD (chronic kidney disease) stage 4, GFR 15-29 ml/min ([facility]) 05/16/2023 Systolic congestive heart failure ([facility]) 05/06 Murmur, heart 05/15/2023 Renal insufficiency 05/15/2023 History of CHF (congestive heart failure) 2022 Dizziness 04/02/2019 Dyslipidemia 04/02/2019 H/O: stroke 04/02/2019 PAOD (peripheral arterial occlusive disease) ([facility]) 04/02/2019 Paroxysmal A-fib ([facility]) 04/02/2019 Essential hypertension 03/19/2019 Assessment & Plan (03/19/2019 10:57 AM CDT): Controlled. Pre-operative clearance 03/19/2019 Assessment & Plan (03/19/2019 10:57 AM CDT): Limited aerobic capacity. Recommend pharmacological stress test Stenosis of left carotid artery 03/01/2019 Assessment & Plan (04/11/2019 9:47 AM OBJECT ORIENTED DEVELOPER): Patient has prior left hemispheric stroke with [...] 02/12/2019 Assessment & Plan (04/11/2019 9:46 AM OBJECT ORIENTED DEVELOPER): Per patient blood glucose levels remain controlled. Continue current regimen per primary care visit Dysarthria 02/12/2019 Elevated serum creatinine 02/12/2019 Expressive aphasia 02/12/2019 Hyperlipemia 02/12/2019 Assessment & Plan (07/01/2023 11:59 AM OBJECT ORIENTED DEVELOPER): Continue atorvastatin 40 mg daily. Assessment & Plan (04/11/2019 9:46 AM OBJECT ORIENTED DEVELOPER): For patient cholesterol levels remain controlled. Continue current statin therapy per Cardiology recommendations. Assessment & Plan (03/19/2019 10:56 AM CDT): Agree with statin. Left-sided weakness 02/12/2019 Smoker 02/12/2019 Assessment & Plan (04/11/2019 9:48 AM OBJECT ORIENTED DEVELOPER): Unfortunately patient continues to smoke. Greater than [...] quit within 3 months period Atherosclerosis of [place] of both lower extremities with intermittent claudication 11/19/2016 Carotid occlusion, right 11/12/2016 Assessment & Plan (03/27/2019 2:33 PM CDT): Known chronic occlusion of the right internal carotid artery that does not require surgical intervention. Continue ongoing risk factor modification. Assessment & Plan (03/19/2019 10:56 AM CDT): Recommend nuclear stress test before clearance Atherosclerosis of [place] of extremity with intermittent claudication [...] materials from doctor or pharmacy Never 08/25/2023 [facility] Utilities Answer Date Recorded In [...] week 06/13/2023 How often do you attend religion or gnosticist serv ices? Never 06/13/2023 Do you belong to any clubs o r organizations such as religion groups, unions, fraternal or athletic groups, or [...] place to sleep or slept in a jail (including now)? No 06/13/2023 Personal Safety Answer Date Recorded Have you ever been in or are you currently in a harmful physical or emotional relationship or is someone making you feel afraid or unsafe? Denies 06/12/2023 Sex and Gender Information Value Date Recorded Sex Assigned at Not on file Legal Sex Male 10:52 AM OBJECT ORIENTED DEVELOPER Gender Identity Not on file Sexual Orientation [...] 59.9 kg (132 lb) 08/01/2023 3:09 PM OBJECT ORIENTED DEVELOPER Height 167.6 cm (5' 6 ) 08/01/2023 3:09 PM OBJECT ORIENTED DEVELOPER Body Mass Index 21.31 08/01/2023 3:09 PM OBJECT ORIENTED DEVELOPER Plan of Treatment Health Maintenance Due Date [...] Completed 08/21/2013 Medical Devices Implanted Type Area Officer Captain Device Identifier Shelf Expiration Date Model / Serial / Lot Medtronic [facility] Vasc Surgery 3.5 X 12mm [place] Rx Coronary Stent [id number] - [id number] Implanted:Qty: 1 on 06/13/2023 by [facility] Vas Surgery 11/09/2025 [id number] / / [id number] Medtronic [facility] Surgery 3.5 X 12mm [place] Rx Coronary Stent [id number] - [id number] Implanted:Qty: 1 on 06/13/2023 by Luke [facility] MD at [facility] Surgery 02/03/2026 [id number] / / [id number] 001 Medtronic Inc Protege Gps Exprt 9mm .079in 60mm 120cm Otw Delivery System Self - [id number] Implanted:Qty: 1 on 06/13/2023 by Luke Pablo MD at [facility] Medtronic [facility] 11/07/2023 [id number] 0-120 / / [id number] Medtronic Inc Everflex Entrust 8mm 60mm 120cm Self Expand Triaxial Low Profile - [id number] Implanted:Qty: 1 on 06/13/2023 by Luke Pablo MD at [facility] Medtr[employer] [facility] 01/16/2026 [id number] 0-120 / / [id number] Medtronic Inc Everflex Od7 Mm L30 Mm L120 Cm Self Expand Delivery Catheter System Spiral Cell Peak To Peak Connection Node Peripheral Stent Vascular Accepts .035 In Guidewire 6 Fr Introducer Sheath 5. Implanted:Qty: 1 on 06/13/2023 by Luke Pablo MD at [facility] Medtronic [facility] 01/03/2026 [id number] 0-120 / / [id number] Cordis Mynxgrip 6-7fr Balloon Catheter Integrate Sealant Lock Latex Free [id number] - [id number] Implanted:Qty: 1 on 06/13/2023 by Luke Pablo MD at [facility] 08/03/2023 [id number] / / [id number] Procedures Procedure Name Priority Date/Time Associated Diagnosis Comments EGFR Routine 06/19/2023 5:10 AM OBJECT ORIENTED DEVELOPER HEMOGLOBIN A1C STAT 05/14/2023 5:27 AM OBJECT ORIENTED DEVELOPER CTA ABDOMINAL AORTA AND BILATERAL ILIOFEMORAL RUNOFF Routine 08/21/2013 2:17 PM CDT from Last 3 Months or Most Recently Relevant to Health Maintenance Results * eGFR (06/19/2023 5:10 AM OBJECT ORIENTED DEVELOPER) eGFR 33 mL/min/1. 73 m2 SHERYL DURBIN [...] last reviewed 2021. Blood 06/19/2023 5:10 AM OBJECT ORIENTED DEVELOPER 06/19/2023 5:30 AM OBJECT ORIENTED DEVELOPER Leatha Hassan NP LAB BLOOD ORDERABLES F inal Result SHERYL DURBIN [address] Department [place] [address] * (ABNORMAL) Hemoglobin A1c (05/14/2023 5:27 AM OBJECT ORIENTED DEVELOPER) Hgb A1C 6.5(H) 4.0 - 5.6 % SHERYL VIVEROS Estimated Average Glucose 140 mg/dL SHERYL VIVEROS Comment: The ADA recommends reporting an estimated Average Glucose (eAG) with all Hemoglobin A1c results using the equation derived from a study of 507 normal and diabetic adults. Minority populations were underrepresented and children were not included. (Diabetes Care 31:1771-6980, 2008). The eAG is not equivalent to a fasting glucose. Blood 05/14/2023 5:27 AM OBJECT ORIENTED DEVELOPER 05/14/2023 5:30 AM OBJECT ORIENTED DEVELOPER us Lc Dunbar MD LAB BLOOD ORDERABLES Final Result SHERYL [address] [facility] Department [place] [address] * CTA Abdominal Aorta And Bilateral Iliofemoral [...] agrees with it. [facility]# Date Time Exam [id number] Aug 21, 2013 14:17:[id number] Angio Abd & AIF wwo con [...] gallbladder were communicated to Dr. Parker's medical advisor Lisa Cowan by Dr. Schaffer at 4:00 [...] this written report and agrees with it. [facility]# Date Time Exam [id number] Aug 21, 2013 14:17:[id number] Angio Abd & AIF wwo con [...] gallbladder were communicated to Dr. Parker's medical advisor Lisa Cowan by Dr. Schaffer at 4:00 [...] Advance Directives For more information, please contact: [phone] * Full Code (Latest Code Status on File) Date Activated Date Inactivated Comments 06/12/2023 8:49 AM 06/19/2023 8:52 PM * Full Code Date Activated Date Inactivated Comments 05/14/2023 3:50 AM 05/21/2023 12:01 AM Care Teams Sem Manager Relationship Specialty Start Date End Date Ace Tavares DO PCP - General Internal Medicine 02/22/19 Becky Cisneros MD Pain[employer] Cardiovascular Disease 03/19/19
--- NOTE | 2024-07-12 13:41 | ED_ITS ---
HPI - General Adult General Chief complaint: Weakness <ROBERTA Benavides Last Filed: 07/12/24 13:49> Stated complaint: cough, weakness <ROBERTA Benavides Last Filed: 07/12/24 13:49> Time Seen by Provider: 07/12/24 13:43 <Rosa Chase PA-C - Last Filed: 07/12/24 13:49> Focused HPI: Patient is a 79 y/o male, with pmh of chronic respiratory failure on home O2 at 2L, COPD, CHF, CKD, aortic stenosis, DM, who presents to the ED via EMS with report of SOB. Patient reports he was recently admitted here for SOB, PNA, CHF. States over the past couple days, patient has been increasingly sob. Reports cough x2d, weakness, increased swelling in BLE. Denies fevers, chest pain. Is on brillinta d/t hx of blood clots. GENERAL: Ill appearing, frail/thin, and in no acute distress. HEAD: Normocephalic, atraumatic. CHEST: Tachypnea. Frequent coughing. Decreased lung sounds in bases bilaterally. No wheezing. HEART: Regular rate and rhythm.?+murmur. Diffuse pitting edema BLE. NEURO: ?Alert and oriented x3. Patient screened in triage and initial orders placed.? ?Additional care and disposition to be based upon?diagnostic testing and treatment. <Rosa Chase PA-C - Last Filed: 07/12/24 13:49> Source: patient and old records reviewed <ROBERTA Benavides Last Filed: 07/12/24 13:49> Mode of arrival: EMS <ROBERTA Benavides Last Filed: 07/12/24 13:49> Limitations: no limitations <ROBERTA Benavides Last Filed: 07/12/24 13:49> History of Present Illness HPI narrative: Patient 79-year-old gentleman presents emergency department with chief complaint of shortness of breath and cough and fever. The patient reports he was recently admitted for shortness of breath pneumonia and congestive heart failure patient reports over the last several days been having increasing shortness of breath reports that he feels similar to whenever he has had infection before in the past <Gee Holder MD - Last Filed: 07/12/24 16:42> Related Data Home medications: Home Medications ?Medication ?Instructions ?Recorded ?Confirmed ?Last Taken ?Type aspirin 81 mg tablet,delayed 81 mg PO DAILY 12/04/19 07/03/24 06/18/24 09:00 History release (Adult Low Dose Aspirin) 81 mg albuterol sulfate 90 mcg/actuation 2 puff inhalation TID PRN 05/08/23 07/03/24 06/19/24 07:30 History aerosol inhaler Shortness Of Breath Or Wheezing 2 puff cholecalciferol (vitamin D3) 50 50 mcg PO HS 02/14/24 07/03/24 06/18/24 09:00 History mcg (2,000 unit) capsule 50 mcg clonazepam 0.5 mg tablet 0.5 mg PO Q12H PRN anxiety 06/19/24 07/03/24 06/17/24 14:00 History 0.5 mg <Rosa Chase PA-C - Last Filed: 07/12/24 13:49> Allergies/adverse reactions: Allergies Allergy/AdvReac Type Severity Reaction Status Date / Time No Known Allergies Allergy Unknown Verified 06/19/24 17:59 <Rosa Chase PA-C - Last Filed: 07/12/24 13:49> Review of Systems 2 Review of Systems: A 10 system review of systems was completed on the patient and is negative except for what is stated in the HPI. Nursing and ancillary documentation was reviewed. <Gee Holder MD - Last Filed: 07/12/24 16:42> [facility] Past Medical History Medical History: Medical History Chronic kidney disease, stage 4 (severe) Aortic stenosis Chronic respiratory failure with hypoxia, on home oxygen therapy Gastroesophageal reflux disease 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 Hyperlipidemia Chronic obstructive pulmonary disease Deep venous thrombosis Coronary artery disease Carotid stenosis, bilateral Depression due to physical illness Tobacco dependence Non-ST elevation myocardial infarction (NSTEMI) 05/08/2023 and 06/11/2023 Type 2 diabetes mellitus Chronic kidney disease Emphysema lung Allergies Anxiety Peripheral artery disease Hypertension Renal artery stenosis <Rosa Chase PA-C - Last Filed: 07/12/24 13:49> Surgical History Surgical History: Surgical History History of cataract extraction History of coronary artery stent placement History of cardiac catheterization History of tonsillectomy <Rosa Chase PA-C - Last Filed: 07/12/24 13:49> Family History Family History: Family History Mother Family history of diabetes mellitus in first degree relative Cerebrovascular accident Father Family history of emphysema Sibling Family history of malignant neoplasm <Rosa Chase PA-C - Last Filed: 07/12/24 13:49> Social History Social History: Social History Social History: Surrogate medical decision maker: Cheryl Duval, spouse. Code status: Full code. Smoking packs per day: 0.5 Smoking cigarettes per day: 10.0 Years smoked: 60 Smoking pack-years: 30.00 Smoking status: Unknown if ever smoked Tobacco type: cigarettes Alcohol intake: never Substance use: never Substance use type: does not use Do You Feel Safe in your Home?: Yes Lack of Transportation: No Lack of Food: Never True Current Housing: I Have Housing Concerned About Future Housing: No Difficulty Paying Gas/Electric Bills: No Difficulty Paying for Meds: No Currently Unemployed: Decline to Answer Education: Decline to Answer Difficulty w/ Childcare or Family Care: No Living arrangements: with family Occupation/Education: retired Spiritual care concerns: No <Rosa Chase PA-C - Last Filed: 07/12/24 13:49> Exam 2 Narrative: GENERAL: Well-appearing, well-nourished, and in no acute distress. HEAD: Normocephalic, atraumatic. EYES: PERRLA and EOMI. ENT: Nares clear, no rhinorrhea or epistaxis. Mucous membranes moist. NECK: Supple. CHEST: Clear to auscultation. No respiratory distress. HEART: Regular rate and rhythm. No murmur heard. Normal peripheral pulses. ABDOMEN: Soft, nontender, nondistended, normal active bowel sounds. EXTREMITIES: Normal range of motion. No edema. SKIN: Warm, dry, no rash. NEURO: No focal deficits. Alert and oriented x3. PSYCH: Normal mood and affect. <Gee Holder MD - Last Filed: 07/12/24 16:42> Course Vital Signs Vital signs: Vital Signs Temperature 36.4 C 07/12/24 11:15 Pulse Rate 83 07/12/24 11:15 Respiratory Rate 19 07/12/24 11:15 Blood Pressure 127/53 L 07/12/24 11:15 Pulse Oximetry 95 07/12/24 11:15 Oxygen Delivery Nasal Cannula 07/12/24 11:15 Oxygen Flow Rate 2 07/12/24 11:15 Temperature 36.4 C 07/12/24 11:15 Pulse Rate 83 07/12/24 11:15 Respiratory Rate 19 07/12/24 11:15 Blood Pressure 127/53 L 07/12/24 11:15 Pulse Oximetry 95 07/12/24 11:15 Oxygen Delivery Nasal Cannula 07/12/24 11:15 Oxygen Flow Rate 2 07/12/24 11:15 <Rosa Chase PA-C - Last Filed: 07/12/24 13:49> Vital Signs Temperature 36.4 C 07/12/24 11:15 Pulse Rate 83 07/12/24 11:15 Respiratory Rate 19 07/12/24 11:15 Blood Pressure 127/53 L 07/12/24 11:15 Pulse Oximetry 95 07/12/24 11:15 Oxygen Delivery Nasal Cannula 07/12/24 11:15 Oxygen Flow Rate 2 07/12/24 11:15 Temperature 36.4 C 07/12/24 11:15 Pulse Rate 83 07/12/24 11:15 Respiratory Rate 19 07/12/24 11:15 Blood Pressure 127/53 L 07/12/24 11:15 Pulse Oximetry 95 07/12/24 11:15 Oxygen Delivery Nasal Cannula 07/12/24 11:15 Oxygen Flow Rate 2 07/12/24 11:15 <Gee Holder MD - Last Filed: 07/12/24 16:42> Medical Decision Making MDM Narrative Medical decision making narrative: MSE by MELVIN in triage. <Rosa Chase PA-C - Last Filed: 07/12/24 13:49> MSE by MELVIN in triage. Differential diagnosis includes pneumonia, COVID, flu, RSV Patient had a slightly elevated troponin CBC showed a white count of 11.0 the patient was positive for influenza initial troponin 0.052 the patient also had elevated BNP. The patient was given 1 L normal saline boluses as the patient does have history of congestive heart failure and is only 55.9 kilos. The patient started on Rocephin Zithromax blood cultures were obtained the case was discussed with the hospitalist the patient received further care in the inpatient setting <Gee Holder MD - Last Filed: 07/12/24 16:42> Vital Signs Vital Signs: Vital Signs Temperature 36.4 C 07/12/24 11:15 Pulse Rate 83 07/12/24 11:15 Respiratory Rate 19 07/12/24 11:15 Blood Pressure 127/53 L 07/12/24 11:15 Pulse Oximetry 95 07/12/24 11:15 Oxygen Delivery Nasal Cannula 07/12/24 11:15 Oxygen Flow Rate 2 07/12/24 11:15 Temperature 36.4 C 07/12/24 11:15 Pulse Rate 83 07/12/24 11:15 Respiratory Rate 19 07/12/24 11:15 Blood Pressure 127/53 L 07/12/24 11:15 Pulse Oximetry 95 07/12/24 11:15 Oxygen Delivery Nasal Cannula 07/12/24 11:15 Oxygen Flow Rate 2 07/12/24 11:15 <Rosa Chase PA-C - Last Filed: 07/12/24 13:49> Vital Signs Temperature 36.4 C 07/12/24 11:15 Pulse Rate 83 07/12/24 11:15 Respiratory Rate 19 07/12/24 11:15 Blood Pressure 127/53 L 07/12/24 11:15 Pulse Oximetry 95 07/12/24 11:15 Oxygen Delivery Nasal Cannula 07/12/24 11:15 Oxygen Flow Rate 2 07/12/24 11:15 Temperature 36.4 C 07/12/24 11:15 Pulse Rate 83 07/12/24 11:15 Respiratory Rate 19 07/12/24 11:15 Blood Pressure 127/53 L 07/12/24 11:15 Pulse Oximetry 95 07/12/24 11:15 Oxygen Delivery Nasal Cannula 07/12/24 11:15 Oxygen Flow Rate 2 07/12/24 11:15 <Gee Holder MD - Last Filed: 07/12/24 16:42> Lab Data Result diagrams: 07/12/24 13:49 07/12/24 13:49 <Rosa Chase PA-C - Last Filed: 07/12/24 13:49> Labs: Lab Results 07/12/24 Range/Units 13:49 WBC 11.0 H (4.5-10.0) K/mm3 RBC 3.98 L (4.6-6.20) M/mm3 Hgb 11.5 L (14.0-18.0) g/dL Hct 36.8 L (42.0-52.0) % MCV 92.5 (80-100) fl MCH 28.9 (26-34) pg MCHC 31.3 L (32-36) g/dl RDW 15.9 H (11.5-14.5) % Plt Count 204 (150-375) k/mm3 MPV 11.5 H (7.4-10.4) fl Immature Gran % (Auto) 1.3 H (0-0.5) % Neut % (Auto) 86.8 H (45.5-73.1) % Lymph % (Auto) 1.6 L (18.3-44.2) % [place] % (Auto) 10.1 H (2.6-8.5) % Eos % (Auto) 0.0 (0-4.4) % Baso % (Auto) 0.2 (0.2-1.2) % Lymph # (Auto) 0.18 L (0.9-3.2) K/mm3 [place] # (Auto) 1.1 H (0.1-0.6) K/mm3 Eos # (Auto) 0.0 (0-0.3) K/mm3 Baso # (Auto) 0.0 (0.0-0.1) K/mm3 Abs Immat Gran (auto) 0.14 H (0.00-0.031) K/mm3 Absolute Neuts (auto) 9.6 H (1.3-6.7) K/mm3 Absolute Nucleated RBC 0.000 (0.0-0.012) K/mm3 Nucleated RBC % 0.0 (0.0-0.2) % PT 14.6 (11.1-14.7) Seconds INR 1.1 APTT 25.7 (22.3-36.8) Seconds Sodium 133 L (137-145) mmol/L Potassium 4.9 (3.4-5.0) mmol/L Chloride 95 L (98-107) mmol/L Carbon Dioxide 23 (22-30) mmol/L Anion Gap 15 H (4-12) mmol/L BUN 61 H (9-20) mg/dL Creatinine 2.91 H (0.7-1.3) mg/dL Estim Creat Clear Calc 15 ml/min Estimated GFR 21 L (59 - ) Glucose 228 H (65-110) mg/dL Lactic Acid 2.4 H (0.7-2.0) mmol/L Calcium 8.5 (8.4-10.2) mg/dL Magnesium 2.0 (1.6-2.3) mg/dL Total Bilirubin 0.8 (0.2-1.3) mg/dL AST 29 (17-59) U/L ALT 33 (6-50) U/L Alkaline Phosphatase 117 (38-126) U/L Troponin I 0.052 H* (0.000-0.034) ng/mL NT-Pro-B Natriuret Pep > 09213 H (19.9-100) pg/mL Total Protein 7.0 (6.3-8.2) g/dL Albumin 4.1 (3.5-5.1) g/dL Influenza A (RT-PCR) Positive A (Negative) Influenza B (RT-PCR) Negative (Negative) RSV (RT-PCR) Negative (Negative) SARS-CoV-2 RNA (RT-PCR) Negative (Negative) <Rosa Chase PA-C - Last Filed: 07/12/24 13:49> Lab Results 07/12/24 Range/Units 13:49 WBC 11.0 H (4.5-10.0) K/mm3 RBC 3.98 L (4.6-6.20) M/mm3 Hgb 11.5 L (14.0-18.0) g/dL Hct 36.8 L (42.0-52.0) % MCV 92.5 (80-100) fl MCH 28.9 (26-34) pg MCHC 31.3 L (32-36) g/dl RDW 15.9 H (11.5-14.5) % Plt Count 204 (150-375) k/mm3 MPV 11.5 H (7.4-10.4) fl Immature Gran % (Auto) 1.3 H (0-0.5) % Neut % (Auto) 86.8 H (45.5-73.1) % Lymph % (Auto) 1.6 L (18.3-44.2) % [place] % (Auto) 10.1 H (2.6-8.5) % Eos % (Auto) 0.0 (0-4.4) % Baso % (Auto) 0.2 (0.2-1.2) % Lymph # (Auto) 0.18 L (0.9-3.2) K/mm3 [place] # (Auto) 1.1 H (0.1-0.6) K/mm3 Eos # (Auto) 0.0 (0-0.3) K/mm3 Baso # (Auto) 0.0 (0.0-0.1) K/mm3 Abs Immat Gran (auto) 0.14 H (0.00-0.031) K/mm3 Absolute Neuts (auto) 9.6 H (1.3-6.7) K/mm3 Absolute Nucleated RBC 0.000 (0.0-0.012) K/mm3 Nucleated RBC % 0.0 (0.0-0.2) % PT 14.6 (11.1-14.7) Seconds INR 1.1 APTT 25.7 (22.3-36.8) Seconds Sodium 133 L (137-145) mmol/L Potassium 4.9 (3.4-5.0) mmol/L Chloride 95 L (98-107) mmol/L Carbon Dioxide 23 (22-30) mmol/L Anion Gap 15 H (4-12) mmol/L BUN 61 H (9-20) mg/dL Creatinine 2.91 H (0.7-1.3) mg/dL Estim Creat Clear Calc 15 ml/min Estimated GFR 21 L (59 - ) Glucose 228 H (65-110) mg/dL Lactic Acid 2.4 H (0.7-2.0) mmol/L Calcium 8.5 (8.4-10.2) mg/dL Magnesium 2.0 (1.6-2.3) mg/dL Total Bilirubin 0.8 (0.2-1.3) mg/dL AST 29 (17-59) U/L ALT 33 (6-50) U/L Alkaline Phosphatase 117 (38-126) U/L Troponin I 0.052 H* (0.000-0.034) ng/mL NT-Pro-B Natriuret Pep > 29402 H (19.9-100) pg/mL Total Protein 7.0 (6.3-8.2) g/dL Albumin 4.1 (3.5-5.1) g/dL Influenza A (RT-PCR) Positive A (Negative) Influenza B (RT-PCR) Negative (Negative) RSV (RT-PCR) Negative (Negative) SARS-CoV-2 RNA (RT-PCR) Negative (Negative) <Gee Holder MD - Last Filed: 07/12/24 16:42> Discharge Plan Discharge Clinical Impression: Pneumonia, Elevated troponin, Influenza <Rosa Chase PA-C - Last Filed: 07/12/24 13:49> Patient Disposition: Still a Patient <Rosa Chase PA-C - Last Filed: 07/12/24 13:49> Condition: Stable <Rosa Chase PA-C - Last Filed: 07/12/24 13:49> Patient Language: [place] <Rosa Chase PA-C - Last Filed: 07/12/24 13:49> Prescriptions: No Action aspirin [Adult Low Dose Aspirin] 81 mg tablet,delayed release (DR/EC) 81 mg PO DAILY cholecalciferol (vitamin D3) 50 mcg (2,000 unit) capsule 50 mcg PO HS albuterol sulfate 1.25 mg/3 mL solution for nebulization 1.25 mg inhalation Q4-6H PRN (Reason: shortness of breath or wheezing) Qty: 90 2RF albuterol sulfate 90 mcg/actuation HFA aerosol inhaler 2 puff INHALATION TID PRN (Reason: Shortness Of Breath Or Wheezing) clonazepam 0.5 mg tablet 0.5 mg PO Q12H PRN (Reason: anxiety) hydralazine 25 mg Tablet 25 mg PO BID Qty: 60 1RF amlodipine 10 mg Tablet 10 mg PO DAILY Qty: 30 1RF insulin aspart U-100 [Novolog U-100 Insulin aspart] 100 unit/mL Solution 1 - 2 unit subcut HS Qty: 10 0RF Protocol: Insulin Corrective Low-Dose Condition: glucose < 70 mg/dl Dose/Route: Follow Hypoglycemia Order Condition: glucose 70-200 mg/dl Dose/Route: No additional insulin Condition: glucose 201-250 mg/dl Dose/Route: 1 units sub-Q Condition: glucose 251-300 mg/dl Dose/Route: 1 units sub-Q Condition: glucose 301-350 mg/dl Dose/Route: 2 units sub-Q Condition: glucose 351-400 mg/dl Dose/Route: 2 units sub-Q Condition: glucose > 400 mg/dl Dose/Route: Call insulin aspart U-100 [Novolog U-100 Insulin aspart] 100 unit/mL Solution 2 - 5 unit subcut TIDWM Qty: 10 0RF Protocol: Insulin Corrective Low-Dose Condition: glucose < 70 mg/dl Dose/Route: Follow Hypoglycemia Order Condition: glucose 70-200 mg/dl Dose/Route: No additional insulin Condition: glucose 201-250 mg/dl Dose/Route: 2 units sub-Q Condition: glucose 251-300 mg/dl Dose/Route: 3 units sub-Q Condition: glucose 301-350 mg/dl Dose/Route: 4 units sub-Q Condition: glucose 351-400 mg/dl Dose/Route: 5 units sub-Q Condition: glucose > 400 mg/dl Dose/Route: Call Protocol Text: *No Correction Dose at Bedtime* furosemide 80 mg Tablet 80 mg PO DAILY Qty: 30 1RF cefdinir 300 mg Capsule 300 mg PO 2100 Qty: 3 0RF doxycycline hyclate 100 mg Tablet 100 mg PO Q12HR Qty: 2 0RF (DME) Accu-Chek Flory Plus test strp Strip See Rx Instructions .ROUTE .MEDSUPPLY Qty: 100 4RF Rx Instructions: Use to check BS BID ticagrelor 90 mg tablet 90 mg PO Q12H Qty: 60 4RF glipizide 5 mg tablet 5 mg PO DAILY Qty: 90 0RF tamsulosin 0.4 mg capsule 0.4 mg PO DAILY Qty: 90 1RF pantoprazole 40 mg tablet,delayed release (DR/EC) 40 mg PO DAILY Qty: 90 1RF metoprolol succinate [Toprol XL] 25 mg tablet extended release 24 hr 25 mg PO Q12H Qty: 180 1RF Jardiance 25 mg tablet 25 mg PO QAM Qty: 30 6RF isosorbide mononitrate 20 mg tablet See Rx Instructions .ROUTE .COMPLEX Qty: 180 0RF Dose Instruction: TAKE 1 TABLET BY MOUTH TWICE A DAY -GIVE DOSES 7 HOURS APART Rx Instructions: TAKE 1 TABLET BY MOUTH TWICE A DAY -GIVE DOSES 7 HOURS APART atorvastatin 40 mg tablet See Rx Instructions .ROUTE .COMPLEX Qty: 90 1RF Dose Instruction: TAKE 1 TABLET BY MOUTH EVERY DAY IN THE EVENING Rx Instructions: TAKE 1 TABLET BY MOUTH EVERY DAY IN THE EVENING <Rosa Chase PA-C - Last Filed: 07/12/24 13:49> Follow-up/Referrals: Ace Tavares, DO [Primary Care Provider] - <Rosa Chase PA-C - Last Filed: 07/12/24 13:49> Time of Disposition: 16:42 <Rosa Chase PA-C - Last Filed: 07/12/24 13:49> 16:42 <Gee Holder MD - Last Filed: 07/12/24 16:42>
--- NOTE | 2024-07-12 13:41 | ECG_ITS ---
Test Date: 2024-07-12 13:59:05 Measurements Intervals [place] Rate: 82 P: 61 WI: 134 QRS: 40 QRSD: 104 T: 242 QT: 374 QTc: 438 Interpretive Statements SINUS RHYTHM LEFT ATRIAL ENLARGEMENT ST-T WAVE ABNORMALITY IN DIFFUSE LEADS- CONSIDER ISCHEMIA BASELINE ARTIFACT- I, II, III, AVR, AVL, AVF, V1-V2 ABNORMAL ECG Compared to ECG 07/03/2024 02:25:40 NO SIGNIFICANT CHANGE Electronically Signed On 07-12-2024 14:28:10 ETHYLBENZENE CONVERTER OPERATOR by Kevin Armijo D.O.
[2024-07-12 14:00] LABS: Basophils Percent Auto 0.2 % (0.2-1.2); Hematocrit 36.8 % (42.0-52.0); Hemoglobin 11.5 g/dL (14.0-18.0); Immature Granulocyte Absolute 0.14 K/mm3 (0.00-0.031); Immature Granulocyte Percent A 1.3 % (0-0.5); Lymphocytes Absolute Auto 0.18 K/mm3 (0.9-3.2); Lymphocytes Percent Auto 1.6 % (18.3-44.2); Mean Corpuscular HGB Conc 31.3 g/dl (32-36); Mean Corpuscular Hemoglobin 28.9 pg (26-34); Mean Corpuscular Volume 92.5 fl (80-100); Mean Platelet Volume 11.5 fl (7.4-10.4); Monocytes Absolute Auto 1.1 K/mm3 (0.1-0.6); Monocytes Percent Auto 10.1 % (2.6-8.5); Neutrophils Absolute Auto 9.6 K/mm3 (1.3-6.7); Neutrophils Percent Auto 86.8 % (45.5-73.1); Platelet Count Result 204 k/mm3 (150-375); Red Blood Count 3.98 M/mm3 (4.6-6.20); Red Cell Distribution Width 15.9 % (11.5-14.5)
[2024-07-12 14:11] LABS: Lactic Acid Reflex 2.4 mmol/L (0.7-2.0)
[2024-07-12 14:12] LABS: Alanine Aminotransferase 33 U/L (6-50); Albumin Level 4.1 g/dL (3.5-5.1); Alkaline Phosphatase 117 U/L (38-126); Anion Gap 15 mmol/L (4-12); Aspartate Amino Transferase 29 U/L (17-59); Bilirubin,Total 0.8 mg/dL (0.2-1.3); Blood Urea Nitrogen 61 mg/dL (9-20); Calcium 8.5 mg/dL (8.4-10.2); Carbon Dioxide 23 mmol/L (22-30); Chloride 95 mmol/L (98-107); Estimated CRCL calculation 15 ml/min; Estimated Glomerular Filt Rate 21; Glucose 228 mg/dL (65-110); Potassium 4.9 mmol/L (3.4-5.0); Sodium 133 mmol/L (137-145)
[2024-07-12 14:13] LABS: INR 1.1; Partial Thromboplastin Time 25.7 Seconds (22.3-36.8); Prothrombin Time 14.6 Seconds (11.1-14.7)
[2024-07-12 14:25] LABS: NT Pro B Type Natriuretic Pept > 30000 pg/mL (19.9-100)
[2024-07-12 14:26] LABS: Troponin I 0.052 ng/mL (0.000-0.034)
[2024-07-12 14:50] LABS: Influenza A QL RT-PCR Positive (Negative); Influenza B QL RT-PCR Negative (Negative); RSV RNA, RT-PCR Negative (Negative); SARS-CoV-2 RNA PCR Negative (Negative)
--- OUTSIDE RECORDS SUMMARY | 2024-07-12 16:30 | XMS_ITS | CONTINUITY OF CARE DOCUMENT ---
Author Name missy louis Address Unknown Organization [facility] Address [address] [address] [address] [place] [address] Phone [phone] Care Team Providers Care Engraver Pantograph Name Role Phone missy louis Unavailable Unavailable INSURANCE PROVIDERS Payer name Policy type / Coverage type Wing red green party ID [id number] PPO Other [id number]
--- OUTSIDE RECORDS SUMMARY | 2024-07-12 16:30 | XMS_ITS | Clinical Summary ---
Author Organization [facility] Address [address] [place] [id number] Phone Care Team Providers Care Parcel Post Delivery Name Role Phone KamilalissetteAce adamson DO Primary Care Provider [phone] Allergies No known active allergies Medications Medication [...] 2010 Influenza Vaccine (#1) 2024 Care Teams Parcel Post Delivery Relationship Specialty Start Date End Date Ace Tavares DO [address] [place] [id number] PCP - General Internal Medicine 10/31/18
--- OUTSIDE RECORDS SUMMARY | 2024-07-12 16:30 | XMS_ITS | Clinical Summary ---
Author Organization [facility] Address [address] [place] [address] Care Team Providers Care Physician Liaison Name Role Phone Ace Tavares DO Primary Care Provider [phone] Tony Hernandez MD Unavailable [phone] Leatha Ramirez ANP-BC Unavailable Unavailab le Active [...] Payer ID:[id number] (NAIC) Type:Not on file Address: [place] [id number] Care Teams Physician Liaison Relationship Specialty Start Date End Date Ace Tavares DO [address] [facility] [address] [place] [id number] PCP - General INTERNAL MEDICINE 11/05/15 Tony Hernandez MD [address] [address] [place] [employer] Planning Counselor CARDIOVASCULAR DISEASE 11/05/15 Leatha Ramirez, ANP- [address] [address] Nurse Practitioner NURSE PRACTITIONER 04/14/16
--- OUTSIDE RECORDS SUMMARY | 2024-07-12 16:30 | XMS_ITS | Encounter Summary ---
Author Organization [facility] Care Team Providers Care Supervisor Special Education Name Role Phone Ace Tavares DO Primary Care Provider [phone] Gustavo Cisneros MD Unavailable [phone] Encounter Details Date Type Department Care Team (Latest Contact Info) Description 11/26/2016 Orders Only [facility] CLINCONV ProviderMukesh MD [address] [place] [address] Social History Tobacco Use Types Packs/Day Years Used Date Smoking Tobacco: Never Assessed Sex and Gender Information Value Date Recorded Sex Assigned at Not on file Legal Sex Male 10:52 AM [employer] Gender Identity Not on file Sexual Orientation [...] COVID: Suspected 06/13/2023 06/13/2023 06/13/2023 2:46 PM [employer]ILY [employer] documented as of this encounter Care Teams Supervisor Special Education Relationship Specialty Start Date End Date Ace Tavares DO PCP - General Internal Medicine 02/22/19 Gustavo Cisneros MD Welder Cardiovascular Disease 03/19/19 documented as of this encounter
--- OUTSIDE RECORDS SUMMARY | 2024-07-12 16:30 | XMS_ITS | Clinical Summary ---
Author Organization [facility] Address [address] [place] [address] Phone Care Team Providers Care Hand Tile Maker Name Role Phone KamilalissetteAce adamson Primary Care [...] - 6.0 % 02/13/2019 4:52 AM CDT [facility] Est Average Glucose 139.9 mg/dL 02/13/2019 4:52 AM CDT [facility] Blood specimen (specimen) Venipuncture / Unknown 02/13/2019 4:14 AM CDT 02/13/2019 4:20 AM CDT Narrative [facility] - 02/13/2019 4:52 AM CDT Specimens containing greater than 5% of Hemoglobin F may result in lower than expected % HbA1C results. us Mason Sweeney DO CHEMISTRY ORDERABLES Final R esult Performing Organization Address City/State/[facility] Co de Phone Number [facility] [address] [place] [address], from Last 3 Months or Most Recently Relevant to Health Maintenance Insurance MEDICARE C [employer] Advance Directives * Full Code (Latest Code Status on File) Date Activated Date Inactivated Comments 02/12/2019 4:03 PM 02/14/2019 3:46 PM CPR-Full Pamela tment: FULL ARREST: Attempt Resuscitation/CPR wit intubation and mechanical ventilation. PRE-ARREST: Use entire range of life support measures to stabilize the patient. Care Teams Hand Tile Maker Relationship Specialty Start Date End Date Ace Tavares DO [facility] [facility] [address] [place] [address] PCP - General Internal Medicine 02/12/19
--- OUTSIDE RECORDS SUMMARY | 2024-07-12 16:30 | XMS_ITS | Referral Summary ---
Author Organization [facility] at the [facility] Office [facility] Address [address] [place] [address] Care Team Providers Care Operator Weapon Locating Radar Name Role Phone Ace Tavares DO Primary Care Provider [phone] Becky Cisneros MD Unavailable [phone] Allergies No known active allergies Medications atorvastatin [...] 07/01/2023 Assessment & Plan (07/01/2023 11:59 AM AVIONICS SYSTEMS INTEGRATION SPECIALIST): LVEF was 45%. Continue metoprolol and Bidil. NSTEMI (non-ST elevated myocardial infarction) ( [facility]) 06/12/2023 Protein-calorie malnutrition, moderate ([facility]) 06/12/2023 Coronary artery disease 05/19/2023 Assessment & Plan (07/01/2023 11:59 AM AVIONICS SYSTEMS INTEGRATION SPECIALIST): Status post successful complex PCI of the left main LAD and circumflex. The patient is asymptomatic. Continue aspirin and Brilinta. Cardiorenal syndrome 05/17/2023 Chronic kidney disease 05/17/2023 CKD (chronic kidney disease) stage 4, GFR 15-29 ml/min ([facility]) 05/16/2023 Systolic congestive heart failure ([facility]) 05/06 Murmur, heart 05/15/2023 Renal insufficiency 05/15/2023 History of CHF (congestive heart failure) 2022 Dizziness 04/02/2019 Dyslipidemia 04/02/2019 H/O: stroke 04/02/2019 PAOD (peripheral arterial occlusive disease) ([facility]) 04/02/2019 Paroxysmal A-fib ([facility]) 04/02/2019 Essential hypertension 03/19/2019 Assessment & Plan (03/19/2019 10:57 AM CDT): Controlled. Pre-operative clearance 03/19/2019 Assessment & Plan (03/19/2019 10:57 AM CDT): Limited aerobic capacity. Recommend pharmacological stress test Stenosis of left carotid artery 03/01/2019 Assessment & Plan (04/11/2019 9:47 AM AVIONICS SYSTEMS INTEGRATION SPECIALIST): Patient has prior left hemispheric stroke with [...] 02/12/2019 Assessment & Plan (04/11/2019 9:46 AM AVIONICS SYSTEMS INTEGRATION SPECIALIST): Per patient blood glucose levels remain controlled. Continue current regimen per primary care visit Dysarthria 02/12/2019 Elevated serum creatinine 02/12/2019 Expressive aphasia 02/12/2019 Hyperlipemia 02/12/2019 Assessment & Plan (07/01/2023 11:59 AM AVIONICS SYSTEMS INTEGRATION SPECIALIST): Continue atorvastatin 40 mg daily. Assessment & Plan (04/11/2019 9:46 AM AVIONICS SYSTEMS INTEGRATION SPECIALIST): For patient cholesterol levels remain controlled. Continue current statin therapy per Cardiology recommendations. Assessment & Plan (03/19/2019 10:56 AM CDT): Agree with statin. Left-sided weakness 02/12/2019 Smoker 02/12/2019 Assessment & Plan (04/11/2019 9:48 AM AVIONICS SYSTEMS INTEGRATION SPECIALIST): Unfortunately patient continues to smoke. Greater than [...] quit within 3 months period Atherosclerosis of [place] of both lower extremities with intermittent claudication 11/19/2016 Carotid occlusion, right 11/12/2016 Assessment & Plan (03/27/2019 2:33 PM CDT): Known chronic occlusion of the right internal carotid artery that does not require surgical intervention. Continue ongoing risk factor modification. Assessment & Plan (03/19/2019 10:56 AM CDT): Recommend nuclear stress test before clearance Atherosclerosis of [place] of extremity with intermittent claudication [...] materials from doctor or pharmacy Never 08/25/2023 [facility] Utilities Answer Date Recorded In the past 12 months has th e [employer], gas, oil, or water [employer] threatened to shut off services in your home? No 06/13/2023 Social Connection and Isolation Panel [NHANES] A nswer Date Recorded In a typical week, how many times do you talk on the phone with family, friends, or neighbors? Once a week 06/13/2023 How often do you get together with friends or re latives? Once a week 06/13/2023 How often do you attend protestant or yazdanism serv ices? Never 06/13/2023 Do you belong to any clubs o r organizations such as protestant groups, unions, fraternal or athletic groups, or [...] place to sleep or slept in a long term (including now)? No 06/13/2023 Personal Safety Answer Date Recorded Have you ever been in or are you currently in a harmful physical or emotional relationship or is someone making you feel afraid or unsafe? Denies 06/12/2023 Sex and Gender Information Value Date Recorded Sex Assigned at Not on file Legal Sex Male 10:52 AM AVIONICS SYSTEMS INTEGRATION SPECIALIST Gender Identity Not on file Sexual Orientation [...] 59.9 kg (132 lb) 08/01/2023 3:09 PM AVIONICS SYSTEMS INTEGRATION SPECIALIST Height 167.6 cm (5' 6 ) 08/01/2023 3:09 PM AVIONICS SYSTEMS INTEGRATION SPECIALIST Body Mass Index 21.31 08/01/2023 3:09 PM AVIONICS SYSTEMS INTEGRATION SPECIALIST Plan of Treatment Not on file Medical Devices Implanted Type Area Sewer And Drain Technician Device Identifier Shelf Expiration Date Model / Serial / Lot Medtronic [facility] Vas Surgery 3.5 X 12mm Zion Stewart Rx Coronary Stent [id number] - [id number] Implanted:Qty: 1 on 06/13/2023 by Luke Pablo MD at [facility] Medtronic [facility] Vasc Surgery 11/09/2025 [id number] / / [id number] Medtronic [facility] Surgery 3.5 X 12mm Zion Stewart Rx Coronary Stent [id number] - [id number] Implanted:Qty: 1 on 06/13/2023 by Luke Pablo MD at [facility] Medtronic [facility] Vasc Surgery 02/03/2026 [id number] / / [id number] 001 Medtronic Inc Protege Gps Exprt 9mm .079in 60mm 120cm Otw Delivery System Self - [id number] Implanted:Qty: 1 on 06/13/2023 by Luke Pablo MD at [facility] Medtronic Inc 11/07/2023 [id number] 0-120 / / [id number] Medtronic Inc Everflex Entrust 8mm 60mm 120cm Self Expand Triaxial Low Profile - [id number] Implanted:Qty: 1 on 06/13/2023 by Luke Pablo MD at [facility] Medtronic Inc 01/16/2026 [id number] 0-120 / / [id number] Medtronic Inc Everflex Od7 Mm L30 Mm L120 Cm Self Expand Delivery Catheter System Spiral Cell Peak To Peak Connection Node Peripheral Stent Vascular Accepts .035 In Guidewire 6 Fr Introducer Sheath 5. Implanted:Qty: 1 on 06/13/2023 by Luke Pablo MD at [facility] Medtronic Inc 01/03/2026 [id number] 0-120 / / [id number] Cordis Mynxgrip 6-7fr Balloon Catheter Integrate Sealant Lock Latex Free [id number] - [id number] Implanted:Qty: 1 on 06/13/2023 by Luke Pablo MD at [facility] Cord 08/03/2023 [id number] / / [id number] Procedures Procedure Name Priority Date/Time Associated Diagnosis Comments EGFR Routine 06/19/2023 5:10 AM AVIONICS SYSTEMS INTEGRATION SPECIALIST HEMOGLOBIN A1C STAT 05/14/2023 5:27 AM AVIONICS SYSTEMS INTEGRATION SPECIALIST CTA ABDOMINAL AORTA AND BILATERAL ILIOFEMORAL RUNOFF Routine 08/21/2013 2:17 PM CDT from Last 3 Months or Most Recently Relevant to Health Maintenance Results * eGFR (06/19/2023 5:10 AM AVIONICS SYSTEMS INTEGRATION SPECIALIST) Pathologist [facility] eGFR 33 mL/min/1. 73 m2 SHERYL DURBIN [...] last reviewed 2021. Blood 06/19/2023 5:10 AM AVIONICS SYSTEMS INTEGRATION SPECIALIST 06/19/2023 5:30 AM AVIONICS SYSTEMS INTEGRATION SPECIALIST us Leatha Hassan NP LAB BLOOD ORDERABLES F inal Result SHERYL [id number] Department [place] [address] * (ABNORMAL) Hemoglobin A1c (05/14/2023 5:27 AM AVIONICS SYSTEMS INTEGRATION SPECIALIST) Hgb A1C 6.5(H) 4.0 - 5.6 % SHERYL VIVEROS Estimated Average Glucose 140 mg/dL SHERYL VIVEROS Comment: The ADA recommends reporting an estimated Average Glucose (eAG) with all Hemoglobin A1c results using the equation derived from a study of 507 normal and diabetic adults. Minority populations were underrepresented and children were not included. (Diabetes Care 31:2611-9025, 2008). The eAG is not equivalent to a fasting glucose. Blood 05/14/2023 5:27 AM AVIONICS SYSTEMS INTEGRATION SPECIALIST 05/14/2023 5:30 AM AVIONICS SYSTEMS INTEGRATION SPECIALIST us Lc Dunbar MD LAB BLOOD ORDERABLES Final Result SHERYL [address] [facility] Department [place] [address] * CTA Abdominal Aorta And Bilateral Iliofemoral Runoff W WO Contrast (08/21/2013 2:17 PM CDT) Anatomical Region Laterality Modality Body Bilateral Computed Tomogra phy 08/21/2013 2:17 PM CDT Narrative 08/21/2013 4:18 PM CDT KO OLSEN M.D. BECKY SCHAFFER M.D. FINAL REPORT The radiology attending physician has personally reviewed this study, and has reviewed and/or edited this written report and agrees with it. [facility]# Date Time Exam [id number] Aug 21, 2013 14:17:[address] Angio Abd & AIF wwo con [...] gallbladder were communicated to Dr. Parker's medical technician Lisa Cowan by Dr. Schaffer at 4:00 [...] this written report and agrees with it. [facility]# Date Time Exam [id number] Aug 21, 2013 14:17:[address] Angio Abd & AIF wwo con [...] gallbladder were communicated to Dr. Parker's medical technician Lisa Cowan by Dr. Schaffer at 4:00 [...] Advance Directives For more information, please contact: [phone] * Full Code (Latest Code Status on File) Date Activated Date Inactivated Comments 06/12/2023 8:49 AM 06/19/2023 8:52 PM * Full Code Date Activated Date Inactivated Comments 05/14/2023 3:50 AM 05/21/2023 12:01 AM Care Teams Operator Weapon Locating Radar Relationship Specialty Start Date End Date Ace Tavares DO PCP - General Internal Medicine 02/22/19 Becky Cisneros MD Circulation Tender Cardiovascular Disease 03/19/19
--- OUTSIDE RECORDS SUMMARY | 2024-07-12 16:30 | XMS_ITS | Clinical Summary ---
Author Organization [facility] at the [facility] Office Center Address [address] [place] [address] Care Team Providers Care Furnace Mason Name Role Phone Ace Tavares DO Primary Care Provider [phone]- [phone] Becky Cisneros MD Unavailable [phone] Allergies No known active allergies Medications atorvastatin [...] 07/01/2023 Assessment & Plan (07/01/2023 11:59 AM DIRECTOR OF TEENAGE ACTIVITIES): LVEF was 45%. Continue metoprolol and Bidil. NSTEMI (non-ST elevated myocardial infarction) ( [facility]) 06/12/2023 Protein-calorie malnutrition, moderate ([facility]) 06/12/2023 Coronary artery disease 05/19/2023 Assessment & Plan (07/01/2023 11:59 AM DIRECTOR OF TEENAGE ACTIVITIES): Status post successful complex PCI of the left main LAD and circumflex. The patient is asymptomatic. Continue aspirin and Brilinta. Cardiorenal syndrome 05/17/2023 Chronic kidney disease 05/17/2023 CKD (chronic kidney disease) stage 4, GFR 15-29 ml/min ([facility]) 05/16/2023 Systolic congestive heart failure ([facility]) 05/06 Murmur, heart 05/15/2023 Renal insufficiency 05/15/2023 History of CHF (congestive heart failure) 2022 Dizziness 04/02/2019 Dyslipidemia 04/02/2019 H/O: stroke 04/02/2019 PAOD (peripheral arterial occlusive disease) ([facility]) 04/02/2019 Paroxysmal A-fib ([facility]) 04/02/2019 Essential hypertension 03/19/2019 Assessment & Plan (03/19/2019 10:57 AM CDT): Controlled. Pre-operative clearance 03/19/2019 Assessment & Plan (03/19/2019 10:57 AM CDT): Limited aerobic capacity. Recommend pharmacological stress test Stenosis of left carotid artery 03/01/2019 Assessment & Plan (04/11/2019 9:47 AM DIRECTOR OF TEENAGE ACTIVITIES): Patient has prior left hemispheric stroke with [...] 02/12/2019 Assessment & Plan (04/11/2019 9:46 AM DIRECTOR OF TEENAGE ACTIVITIES): Per patient blood glucose levels remain controlled. Continue current regimen per primary care visit Dysarthria 02/12/2019 Elevated serum creatinine 02/12/2019 Expressive aphasia 02/12/2019 Hyperlipemia 02/12/2019 Assessment & Plan (07/01/2023 11:59 AM DIRECTOR OF TEENAGE ACTIVITIES): Continue atorvastatin 40 mg daily. Assessment & Plan (04/11/2019 9:46 AM DIRECTOR OF TEENAGE ACTIVITIES): For patient cholesterol levels remain controlled. Continue current statin therapy per Cardiology recommendations. Assessment & Plan (03/19/2019 10:56 AM CDT): Agree with statin. Left-sided weakness 02/12/2019 Smoker 02/12/2019 Assessment & Plan (04/11/2019 9:48 AM DIRECTOR OF TEENAGE ACTIVITIES): Unfortunately patient continues to smoke. Greater than [...] quit within 3 months period Atherosclerosis of [place] of both lower extremities with intermittent claudication 11/19/2016 Carotid occlusion, right 11/12/2016 Assessment & Plan (03/27/2019 2:33 PM CDT): Known chronic occlusion of the right internal carotid artery that does not require surgical intervention. Continue ongoing risk factor modification. Assessment & Plan (03/19/2019 10:56 AM CDT): Recommend nuclear stress test before clearance Atherosclerosis of [place] of extremity with intermittent claudication [...] Never 08/25/2023 [facility] Utilities Answer Date Recorded In the past [...] week 06/13/2023 How often do you attend yazdanism or samaritan serv ices? Never 06/13/2023 Do you belong to any clubs o r organizations such as yazdanism groups, unions, fraternal or athletic groups, or [...] place to sleep or slept in a senior care (including now)? No 06/13/2023 Personal Safety Answer Date Recorded Have you ever been in or are you currently in a harmful physical or emotional relationship or is someone making you feel afraid or unsafe? Denies 06/12/2023 Sex and Gender Information Value Date Recorded Sex Assigned at Not on file Legal Sex Male 10:52 AM DIRECTOR OF TEENAGE ACTIVITIES Gender Identity Not on file Sexual Orientation [...] 59.9 kg (132 lb) 08/01/2023 3:09 PM DIRECTOR OF TEENAGE ACTIVITIES Height 167.6 cm (5' 6 ) 08/01/2023 3:09 PM DIRECTOR OF TEENAGE ACTIVITIES Body Mass Index 21.31 08/01/2023 3:09 PM DIRECTOR OF TEENAGE ACTIVITIES Plan of Treatment Health Maintenance Due Date [...] Completed 08/21/2013 Medical Devices Implanted Type Area Mixer Operator Vacuum Pan Salt Device Identifier Shelf Expiration Date Model / Serial / Lot Medtronic [facility] Vasc Surgery 3.5 X 12mm Zion [place] Rx Coronary Stent [id number] - [id number] Implanted:Qty: 1 on 06[facility]13/[facility] 11/09/2025 [id number] / / [id number] Medtronic [facility] Surgery 3.5 X 12mm Jenkins [place] Rx Coronary Stent [id number] - [id number] Implanted:Qty: 1 on 06/13/2023 [facility] 02/03/2026 [id number] / / [id number] Medtronic Inc Protege Gps Exprt 9mm .079in 60mm 120cm Otw Delivery System Self - [id number] Implanted:Qty: 1 on 06/13/2023 by Luke Pablo MD at [facility] Medtronic [facility] 11/07/2023 [id number] 0-120 / / [id number] Medtronic Inc Everflex Entrust 8mm 60mm 120cm Self Expand Triaxial Low Profile - [id number] Implanted:Qty: 1 on 06/13/2023 by Luke Pablo MD at [facility] Medtronic [facility] 01/16/2026 [id number] 0-120 / / [id number] Medtronic Inc Everflex Od7 Mm L30 Mm L120 Cm Self Expand Delivery Catheter System Spiral Cell Peak To Peak Connection Node Peripheral Stent Vascular Accepts .035 In Guidewire 6 Fr Introducer Sheath 5. Implanted:Qty: 1 on 06/13/2023 by Luke Pablo MD at [facility] Medtronic [facility] 01/03/2026 [id number] 0-120 / / [id number] Cordis Mynxgrip 6-7fr Balloon Catheter Integrate Sealant Lock Latex Free [id number] - [id number] Implanted:Qty: 1 on 06/13/2023 by Luke Pablo MD at [facility] 08/03/2023 [id number] / / [id number] Procedures Procedure Name Priority Date/Time Associated Diagnosis Comments EGFR Routine 06/19/2023 5:10 AM DIRECTOR OF TEENAGE ACTIVITIES HEMOGLOBIN A1C STAT 05/14/2023 5:27 AM DIRECTOR OF TEENAGE ACTIVITIES CTA ABDOMINAL AORTA AND BILATERAL ILIOFEMORAL RUNOFF Routine 08/21/2013 2:17 PM CDT from Last 3 Months or Most Recently Relevant to Health Maintenance Results * eGFR (06/19/2023 5:10 AM DIRECTOR OF TEENAGE ACTIVITIES) eGFR 33 mL/min/1. 73 m2 SHERYL DURBIN [...] last reviewed 2021. Blood 06/19/2023 5:10 AM DIRECTOR OF TEENAGE ACTIVITIES 06/19/2023 5:30 AM DIRECTOR OF TEENAGE ACTIVITIES Leatha Hassan NP LAB BLOOD ORDERABLES F inal Result SHERYL DURBIN [address] Department [place] [address] * (ABNORMAL) Hemoglobin A1c (05/14/2023 5:27 AM DIRECTOR OF TEENAGE ACTIVITIES) Hgb A1C 6.5(H) 4.0 - 5.6 % SHERYL VIVEROS Estimated Average Glucose 140 mg/dL SHERYL VIVEROS Comment: The ADA recommends reporting an estimated Average Glucose (eAG) with all Hemoglobin A1c results using the equation derived from a study of 507 normal and diabetic adults. Minority populations were underrepresented and children were not included. (Diabetes Care 31:6598-2156, 2008). The eAG is not equivalent to a fasting glucose. Blood 05/14/2023 5:27 AM DIRECTOR OF TEENAGE ACTIVITIES 05/14/2023 5:30 AM DIRECTOR OF TEENAGE ACTIVITIES us Lc Dunbar MD LAB BLOOD ORDERABLES Final Result SHERYL [address] [facility] Department [place] [address] * CTA Abdominal Aorta And Bilateral Iliofemoral [...] agrees with it. [facility]# Date Time Exam [id number] Aug 21, 2013 14:17:[address] Angio Abd & AIF wwo con [...] gallbladder were communicated to Dr. Parker's medical logistics specialist Lisa Cowan by Dr. Schaffer at 4:00 [...] this written report and agrees with it. [facility]# Date Time Exam [id number] Aug 21, 2013 14:17:[address] Angio Abd & AIF wwo con [...] gallbladder were communicated to Dr. Parker's medical logistics specialist Lisa Cowan by Dr. Schaffer at 4:00 [...] Advance Directives For more information, please contact: [phone] * Full Code (Latest Code Status on File) Date Activated Date Inactivated Comments 06/12/2023 8:49 AM 06/19/2023 8:52 PM * Full Code Date Activated Date Inactivated Comments 05/14/2023 3:50 AM 05/21/2023 12:01 AM Care Teams Furnace Mason Relationship Specialty Start Date End Date Ace Tavares DO PCP - General Internal Medicine 02/22/19 Becky Cisneros MD Director Of Hotel Cardiovascular Disease 03/19/19
--- NOTE | 2024-07-12 16:54 | P.HP_ITS ---
H&P: HPI History of Present Illness Date/Time: 07/12/24 16:54 Chief Complaint: Weakness, Shortness of Breath, Cough Narrative: 79 y/o M presents here with weakness, shortness of breath, and cough with PMH of The patient presents here from home via EMS for further evaluation of weakness, shortness of breath, and cough. He was admitted from 07/03/24-07/06/24 for acute on chronic respiratory failure requiring BiPAP and titration of his diuretics. Patient also treated for COPD exacerbation and suspected pneumonia. He was recently treated for pneumonia with 2 different antibiotics (cefdinir and doxycycline) and completed this course yesterday. He reports that since he was discharged he has slowly been having increased shortness of breath over the last few days. Then developed cough, weakness, increased swelling to his bilateral lower extremities for the past 2 days. He denies associated fevers, chest pain, nausea, vomiting or diarrhea. Initial VS at presentation: 97.6? F, HR 83, RR 19, 127/53, and 95% on 2L NC (baseline requirement). ED workup showed: WBC 11.0, hemoglobin 11.5 (near baseline), creatinine 2.9 and GFR 21 (previously 2.57 and GFR 24 on 07/06/2024), lactic 2.4, glucose 228, i nitial troponin 0.052, BNP greater than 30,000, and tested positive for flu A. CXR showed airspace opacities in the lung bases consistent with atelectasis versus pneumonia, small pleural effusions, and cardiomegaly. 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 Hyperlipidemia Chronic obstructive pulmonary disease Deep venous thrombosis Coronary artery disease Carotid stenosis, bilateral Depression due to physical illness Tobacco dependence Non-ST elevation myocardial infarction (NSTEMI) 05/08/2023 and 06/11/2023 Type 2 diabetes mellitus Emphysema lung Allergies Anxiety Peripheral artery disease Hypertension Renal artery stenosis Surgical History Surgical History History of cataract extraction History of coronary artery stent placement History of cardiac catheterization History of tonsillectomy Family History Family History Mother Family history of diabetes mellitus in first degree relative Cerebrovascular accident Father Family history of emphysema Sibling Family history of malignant neoplasm Social History Social History Social History: Surrogate medical decision maker: Cheryl Duval, spouse. Code status: Full code. Smoking packs per day: 0.5 Smoking cigarettes per day: 10.0 Years smoked: 60 Smoking pack-years: 30.00 Smoking status: Unknown if ever smoked Tobacco type: cigarettes Alcohol intake: never Substance use: never Substance use type: does not use Do You Feel Safe in your Home?: Yes Lack of Transportation: No Lack of Food: Never True Current Housing: I Have Housing Concerned About Future Housing: No Difficulty Paying Gas/Electric Bills: No Difficulty Paying for Meds: No Currently Unemployed: Decline to Answer Education: Decline to Answer Difficulty w/ Childcare or Family Care: No Living arrangements: with family Occupation/Education: retired Spiritual care concerns: No Meds Home Medications and Allergies Home Medications ?Medication ?Instructions ?Recorded ?Confirmed ?Type aspirin 81 mg tablet,delayed 81 mg PO DAILY 12/04/19 07/03/24 History release (Adult Low Dose Aspirin) blood sugar diagnostic (Accu-Chek #100 ea 09/22/20 07/03/24 Rx Flory Plus test strips) albuterol sulfate 90 mcg/actuation 2 puff inhalation TID PRN 05/08/23 07/03/24 History aerosol inhaler Shortness Of Breath Or Wheezing ticagrelor 90 mg tablet 90 mg PO Q12H #60 tabs 09/06/23 07/03/24 Rx glipizide 5 mg tablet 5 mg PO DAILY #90 tabs 02/03/24 07/03/24 Rx cholecalciferol (vitamin D3) 50 50 mcg PO HS 02/14/24 07/03/24 History mcg (2,000 unit) capsule albuterol sulfate 1.25 mg/3 mL 1.25 mg (3 mL) inhalation Q4-6H 02/28/24 07/03/24 Rx solution for nebulization PRN shortness of breath or wheezing #90 mL tamsulosin 0.4 mg capsule 0.4 mg PO DAILY #90 caps 05/08/24 07/03/24 Rx pantoprazole 40 mg tablet,delayed 40 mg PO DAILY #90 tabs 05/14/24 07/03/24 Rx release metoprolol succinate 25 mg 25 mg PO Q12H #180 tabs 05/18/24 07/03/24 Rx tablet,extended release 24 hr (Toprol XL) clonazepam 0.5 mg tablet 0.5 mg PO Q12H PRN anxiety 06/19/24 07/03/24 History amlodipine 10 mg tablet 10 mg PO DAILY #30 tabs 06/24/24 07/03/24 Rx hydralazine 25 mg tablet 25 mg PO BID #60 tabs 06/24/24 07/03/24 Rx insulin aspart U-100 100 unit/mL 1 - 2 unit subcut HS #10 mL 06/24/24 07/03/24 Rx subcutaneous solution (Novolog U-100 Insulin aspart) insulin aspart U-100 100 unit/mL 2 - 5 unit subcut TIDWM #10 mL 06/24/24 07/03/24 Rx subcutaneous solution (Novolog U-100 Insulin aspart) empagliflozin 25 mg tablet 25 mg PO QAM #30 tabs 06/25/24 07/03/24 Rx (Jardiance) isosorbide mononitrate 20 mg tablet See Rx Instructions .Route 06/25/24 07/03/24 Rx .COMPLEX #180 tabs cefdinir 300 mg capsule 300 mg PO 2100 #3 caps 07/06/24 Rx doxycycline hyclate 100 mg tablet 100 mg PO Q12HR #2 tabs 07/06/24 Rx furosemide 80 mg tablet 80 mg PO DAILY #30 tabs 07/06/24 Rx atorvastatin 40 mg tablet See Rx Instructions .Route 07/09/24 Rx .COMPLEX #90 tabs Allergies Allergy/AdvReac Type Severity Reaction Status Date / Time No Known Allergies Allergy Unknown Verified 06/19/24 17:59 Vital Signs Vital Signs - 24 hr 07/12/24 11:15 Temperature 97.6 F Pulse Rate 83 Respiratory Rate 19 Blood Pressure 127/53 L Pulse Oximetry 95 Oxygen Delivery Nasal Cannula Oxygen Flow Rate 2 Exam Const: General: comfortable and no acute distress Other: , male, elderly, nontoxic appearance HENMT: Face/Nose/Sinus: Normal nares present Mouth: Yes moist mucous membranes Eyes: General: appearance normal, both eyes and all related structures Sclera: sclerae normal Pupils: Equal, round and reactive pupils present EOM: EOMs intact bilaterally Resp: Other: coarse lung sounds with bibasilar crackles, faint exp wheeze. No increased work of breathing or tachypnea. Cardio: Rate: regular rate Rhythm: regular rhythm Other: S1-S2 present without murmur, rub, ectopy GI: Other: Abdomen soft, rounded, nontender. Normoactive bowel sounds in all quadrants. Skin: General skin exam: normal color and no rashes or lesions noted Wounds: no wounds Neuro: Speech: normal speech Motor exam (neuro): 5/5 motor strength present throughout Sensory Exam: normal sensation Other: A&O for Extrem: General: edema Other: 2+ pitting edema to bilateral and calves , edema does not extend past knee. Psych: Mental Status: mental status grossly normal Affect: normal affect Other: Good insight and judgment, pleasant H&P: Results Labs Labs: Short CBC 07/12/24 Range/Units 13:49 WBC 11.0 H (4.5-10.0) K/mm3 Hgb 11.5 L (14.0-18.0) g/dL Hct 36.8 L (42.0-52.0) % Plt Count 204 (150-375) k/mm3 BMP 07/12/24 13:49 Sodium 133 L Potassium 4.9 Chloride 95 L Carbon Dioxide 23 BUN 61 H Creatinine 2.91 H Glucose 228 H Calcium 8.5 Cardiac Enzymes 07/12/24 Range/Units 13:49 Troponin I 0.052 H* (0.000-0.034) ng/mL Liver Function 07/12/24 Range/Units 13:49 Total Bilirubin 0.8 (0.2-1.3) mg/dL AST 29 (17-59) U/L ALT 33 (6-50) U/L Alkaline Phosphatase 117 (38-126) U/L Albumin 4.1 (3.5-5.1) g/dL Assessment and Plan Assessment and plan (1) Pneumonia: Qualifiers: Laterality: bilateral Lung location: lower lobe of lung Pneumonia type: due to unspecified organism Qualified Code(s): J18.9 - Pneumonia, unspecified organism Code(s): J18.9 - Pneumonia, unspecified organism Status: Acute Assessment and Plan: - did not meet SIRS criteria, however lactic elevated at 2.4. Blood cultures obtained on 07/12, follow. Plan for 2L bolus. trend lactic down. - CXR: 1. Airspace opacities at the lung bases, consistent with atelectasis versus pneumonia. 2. Small pleural effusions. 3. Cardiomegaly. - risk factors and complicating factors: chronic respiratory failure, COPD, influenza, recent pneumonia/hospitalization/ABX use - started on ceftriaxone and azithromycin on to , will exchanged to cefepime, azithromycin, and vancomycin on 07/12 - MRSA PCR and sputum culture - Viral PCR: +Flu A - continue baseline supplemental O2: 2L NC (2) Influenza: Code(s): J11.1 - Influenza due to unidentified influenza virus with other respiratory manifestations Status: Acute Assessment and Plan: - tested positive for influenza A on 07/11 - CXR c/f PNA - Tamiflu 75 mg BID, symptoms worsened/developed cough in the last 2 days - supportive care: Tylenol p.r.n. Mucinex malachi DuoNeb p.r.n. Tessalon Perles p.r.n. Lozenge p.r.n. - monitor WBC/CBC (3) Chronic obstructive pulmonary disease: Qualifiers: COPD type: unspecified COPD Qualified Code(s): J44.9 - Chronic obstructive pulmonary disease, unspecified Code(s): J44.9 - Chronic obstructive pulmonary disease, unspecified Status: Acute Assessment and Plan: - DuoNeb Malachi - prednisone 40 p.o. daily x5 days (4) Elevated troponin: Code(s): R79.89 - Other specified abnormal findings of blood chemistry Status: Acute Assessment and Plan: - EKG, initial: Sinus rhythm, rate 82, left atrial enlargement, ST-T-wave abnormality in diffuse leads consider ischemia, baseline artifact. When compared to EKG done on 06/25/2024, there are no significant changes. - Troponin: 0.052 (previously 0.035 on 07/03/2024), 3 and 6 hour ordered - ASA 324 given - echo, previous (02/2024): He systolic function moderately reduced, estimated EF 40-45%, grade 3 diastolic dysfunction. See report for details. - cardiac catheterization, previous, 06/13/23: Dr. Pablo at [facility], [place] - FISH WORM GROWER of right common iliac artery. LM 70-80%, LAD diffuse disease with severe stenosis in apical segment, LCx prox 80%, RCA with diffuse disease with severe stenosis in mid PDA; PCI to prox LCx and PCI to LM. 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 monitor toleration, hx of HF. - trend renal function - trend electrolytes, correct as needed (7) Type 2 diabetes mellitus: Qualifiers: Chronic kidney disease stage: stage 4 (severe) Diabetes mellitus complication detail: with chronic kidney disease Diabetes mellitus complication status: with kidney complications Diabetes mellitus chcf insulin use: without chcf use Qualified Code(s): E11.22 - Type 2 diabetes mellitus with diabetic chronic kidney disease; N18.4 - Chronic kidney disease, stage 4 (severe) Code(s): E11.9 - Type 2 diabetes mellitus without complications Status: Chronic Assessment and Plan: - hypoglycemia protocol - POC blood glucose ACHS - home medication: Hold Jardiance, glipizide. Continue NovoLog sliding scale. - correct regimen ordered - low dose TIDWM and HS, based off BMI. May need titration, started on steroid course. - A1C 7.5% on 06/25/2024 (8) Hypertension: Qualifiers: Hypertension type: secondary to other renal disorders Qualified Code(s): I15.1 - Hypertension secondary to other renal disorders Code(s): I10 - Essential (primary) hypertension Status: Chronic Assessment and Plan: - chronic, currently 143/52 - continue home medications: metoprolol, Imdur, hydralazine, Lasix, amlodipine - monitor Plan Diet: Heart healthy GI Prophylaxis: Not currently indicated DVT Prophylaxis: SCDs Lines: Peripheral Code Status: DNR Quality VTE Prophylaxis VTE prophylaxis: mechanical ordered Hospitalist MIPS Advance Care Plan I have confirmed that the patient's Advanced Care Plan is present, code status is documented, or surrogate decision maker is listed in patient medical record.: Yes Medication Reconciliation I have utilized all available resources to obtain, update and review the patients current medications (includes all prescriptions, OTC, herbals, cannabis, and nutritional supplements).: Yes
[2024-07-12 16:57] LABS: Reflex Lactic Acid Yes or No Add Lactic
[2024-07-12] MEDS: OSELTAMIVIR PHOSPHATE 75 MG CAPSULE PO (17:10)
[2024-07-12] MEDS: ASPIRIN 81 MG CHEWABLE TABLET 324 MG PO (17:10)
[2024-07-12] MEDS: SODIUM CHLORIDE 0.9% IV 1,000 ML 999 ML IV CONT (17:15)
[2024-07-12] MEDS: IPRATROPIUM 0.5 MG/ALBUTEROL SULFATE 2.5 MG AMPUL.NEB 3 ML INHALATION ×2 (17:47→20:27)
[2024-07-12 18:21] LABS: Lactic Acid 2.2 mmol/L (0.7-2.0)
[2024-07-12] MEDS: AZITHROMYCIN 500 MG/NS 250 ML 500 MG/250 ML BAG 250 MG IVPB (18:23)
[2024-07-12] MEDS: VANCOMYCIN 1,000 MG/NS 250 ML 1,000 MG/250 ML BAG 250 MG IVPB (19:39)
[2024-07-12] MEDS: SODIUM CHLORIDE 0.9% IV 1,000 ML 125 ML IV CONT (19:40)
[2024-07-12] MEDS: guaiFENesin 12 HR 600 MG TABCR PO (20:05)
--- NOTE | 2024-07-12 21:08 | PC.NURSE ---
2014---MRSA swab obtained-unable to print barcode label-printed patient label placed on blue top tube and given to Utility Assembler at bedside drawing his Trop-she stated that she would take to lab with her
[2024-07-12] MEDS: CEFEPIME 2 GM/NS 50 ML 2 GM/50 ML BAG IVPB (21:18)
[2024-07-12] MEDS: INSULIN ASPART (*BKC) 100 UNITS/ML SUB-Q (22:13)
[2024-07-12 23:27] LABS: MRSA (PCR) NOT DETECTED (NOT DETECTE)
[2024-07-12 23:44] LABS: Troponin I 0.065 ng/mL (0.000-0.034)
[2024-07-13] VITALS (30 sets, daily range): BP systolic 100–156; BP diastolic 55–87; PULSE 80–100; RESP 18–24; TEMP 36.5–37; O2SAT 90–97; BMI 22.8
[2024-07-13 00:07] LABS: Glucose Point of Care 221 mg/dl (65-105)
[2024-07-13] MEDS: IPRATROPIUM 0.5 MG/ALBUTEROL SULFATE 2.5 MG AMPUL.NEB 3 ML INHALATION ×4 (02:51→20:44)
[2024-07-13] MEDS: SALINE 0.65% NAS SOLN 44 ML BTL 1 SPRAY NASAL (04:05)
[2024-07-13 05:08] LABS: Basophils Percent Auto 0.2 % (0.2-1.2); Hematocrit 35.2 % (42.0-52.0); Immature Granulocyte Absolute 0.13 K/mm3 (0.00-0.031); Immature Granulocyte Percent A 1.1 % (0-0.5); Lymphocytes Absolute Auto 0.27 K/mm3 (0.9-3.2); Lymphocytes Percent Auto 2.3 % (18.3-44.2); Mean Corpuscular HGB Conc 31.3 g/dl (32-36); Mean Corpuscular Hemoglobin 29.3 pg (26-34); Mean Corpuscular Volume 93.6 fl (80-100); Mean Platelet Volume 11.9 fl (7.4-10.4); Monocytes Absolute Auto 1.4 K/mm3 (0.1-0.6); Monocytes Percent Auto 11.9 % (2.6-8.5); Neutrophils Absolute Auto 9.9 K/mm3 (1.3-6.7); Neutrophils Percent Auto 84.5 % (45.5-73.1); Platelet Count Result 189 k/mm3 (150-375); Red Blood Count 3.76 M/mm3 (4.6-6.20); Red Cell Distribution Width 16.1 % (11.5-14.5); White Blood Count 11.7 K/mm3 (4.5-10.0)
[2024-07-13 05:20] LABS: Alanine Aminotransferase 50 U/L (6-50); Albumin Level 3.7 g/dL (3.5-5.1); Alkaline Phosphatase 135 U/L (38-126); Anion Gap 16 mmol/L (4-12); Aspartate Amino Transferase 44 U/L (17-59); Bilirubin,Total 0.6 mg/dL (0.2-1.3); Blood Urea Nitrogen 59 mg/dL (9-20); Calcium 7.9 mg/dL (8.4-10.2); Carbon Dioxide 20 mmol/L (22-30); Chloride 99 mmol/L (98-107); Estimated CRCL calculation 18 ml/min; Estimated Glomerular Filt Rate 22; Glucose 91 mg/dL (65-110); Potassium 4.6 mmol/L (3.4-5.0); Sodium 135 mmol/L (137-145)
[2024-07-13 06:07] LABS: Procalcitonin 0.2 ng/mL
[2024-07-13 08:06] LABS: Reflex Lactic Acid Yes or No Add Lactic
[2024-07-13 08:42] LABS: Lactic Acid 1.8 mmol/L (0.7-2.0)
[2024-07-13 09:17] LABS: Glucose Point of Care 109 mg/dl (65-105)
[2024-07-13] MEDS: predniSONE 20 MG TABLET 40 MG PO (09:23)
[2024-07-13] MEDS: guaiFENesin 12 HR 600 MG TABCR PO ×2 (09:24→20:28)
--- NOTE | 2024-07-13 11:33 | P.PNIM_ITS ---
Progress Note: A&P Assessment and Plan (1) Pneumonia: Qualifiers: Laterality: bilateral Lung location: lower lobe of lung Pneumonia type: due to unspecified organism Qualified Code(s): J18.9 - Pneumonia, unspecified organism Code(s): J18.9 - Pneumonia, unspecified organism Status: Acute Assessment and Plan: - did not meet SIRS criteria, however lactic elevated at 2.4. Blood cultures obtained on 07/12, follow. Plan for 2L bolus. trend lactic down. - CXR: 1. Airspace opacities at the lung bases, consistent with atelectasis versus pneumonia. 2. Small pleural effusions. 3. Cardiomegaly. - risk factors and complicating factors: chronic respiratory failure, COPD, influenza, recent pneumonia/hospitalization/ABX use - started on ceftriaxone and azithromycin on to , will exchanged to cefepime, azithromycin, and vancomycin on 07/12 - MRSA PCR and sputum culture - Viral PCR: +Flu A - continue baseline supplemental O2: 2L NC (2) Influenza: Code(s): J11.1 - Influenza due to unidentified influenza virus with other respiratory manifestations Status: Acute Assessment and Plan: - tested positive for influenza A on 07/11 - CXR c/f PNA - Tamiflu 75 mg BID, symptoms worsened/developed cough in the last 2 days - supportive care: Tylenol p.r.n. Mucinex malachi DuoNeb p.r.n. Tessalon Perles p.r.n. Lozenge p.r.n. - monitor WBC/CBC (3) Chronic obstructive pulmonary disease: Qualifiers: COPD type: unspecified COPD Qualified Code(s): J44.9 - Chronic obstructive pulmonary disease, unspecified Code(s): J44.9 - Chronic obstructive pulmonary disease, unspecified Status: Acute Assessment and Plan: - DuoNeb Malachi - prednisone 40 p.o. daily x5 days (4) Elevated troponin: Code(s): R79.89 - Other specified abnormal findings of blood chemistry Status: Acute Assessment and Plan: - EKG, initial: Sinus rhythm, rate 82, left atrial enlargement, ST-T-wave abnormality in diffuse leads consider ischemia, baseline artifact. When compared to EKG done on 06/25/2024, there are no significant changes. - Troponin: 0.052 (previously 0.035 on 07/03/2024), 3 and 6 hour ordered - ASA 324 given - echo, previous (02/2024): He systolic function moderately reduced, estimated EF 40-45%, grade 3 diastolic dysfunction. See report for details. - cardiac catheterization, previous, 06/13/23: Dr. Pablo at [facility] - TIN STACKER of right common iliac artery. LM 70-80%, LAD diffuse disease with severe stenosis in apical segment, LCx prox 80%, RCA with diffuse disease with severe s tenosis in mid PDA; PCI to prox LCx and PCI to LM. 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 monitor toleration, hx of HF. - trend renal function - trend electrolytes, correct as needed (7) Type 2 diabetes mellitus: Qualifiers: Diabetes mellitus long term care administrator insulin use: without shelter use Diabetes mellitus complication status: with kidney complications Diabetes mellitus complication detail: with chronic kidney disease Chronic kidney disease stage: stage 4 (severe) Qualified Code(s): E11.22 - Type 2 diabetes mellitus with diabetic chronic kidney disease; N18.4 - Chronic kidney disease, stage 4 (severe) Code(s): E11.9 - Type 2 diabetes mellitus without complications Status: Chronic Assessment and Plan: - hypoglycemia protocol - POC blood glucose ACHS - home medication: Hold Jardiance, glipizide. Continue NovoLog sliding scale. - correct regimen ordered - low dose TIDWM and HS, based off BMI. May need titration, started on steroid course. - A1C 7.5% on 06/25/2024 (8) Hypertension: Qualifiers: Hypertension type: secondary to other renal disorders Qualified Code (s): I15.1 - Hypertension secondary to other renal disorders Code(s): I10 - Essential (primary) hypertension Status: Chronic Assessment and Plan: - chronic, currently 143/52 - continue home medications: metoprolol, Imdur, hydralazine, Lasix, amlodipine - monitor Plan 07/13/2024 Patient is clinically slightly better. Plan is to continue with antibiotic and nebulizer treatment. Monitor closely. Diet: Heart healthy GI Prophylaxis: Not currently indicated DVT Prophylaxis: SCDs Lines: Peripheral Code Status: DNR Subjective Date/time seen: 07/13/24 11:33 Interval history: Patient was seen during the morning rounds today. Patient has mild shortness of breath. No chest pain. Abdominal pain, nausea, no vomiting. Review of Systems Review of Systems: All systems reviewed & are unremarkable except as noted in HPI and below (the history and physical exam.) Exam Narrative: 2+ pitting edema to bilateral and calves , edema does not extend past knee. coarse lung sounds with bibasilar crackles, faint exp wheeze. Const: General: comfortable and no acute distress Other: , male, elderly, nontoxic appearance HENMT: Face/Nose/Sinus: Normal nares present Mouth: Yes moist mucous membranes Eyes: General: appearance normal, both eyes and all related structures Sclera: sclerae normal Pupils: Equal, round and reactive pupils present EOM: EOMs intact bilaterally Resp: Other: coarse lung sounds with bibasilar crackles, faint exp wheeze. No increased work of breathing or tachypnea. Cardio: Rate: regular rate Rhythm: regular rhythm Other: S1-S2 present without murmur, rub, ectopy GI: Other: Abdomen soft, rounded, nontender. Normoactive bowel sounds in all quadrants. Skin: General skin exam: normal color and no rashes or lesions noted Wounds: no wounds Neuro: Cranial nerves: Yes Equal, round and reactive pupils present Speech: normal speech Motor exam (neuro): 5/5 motor strength present throughout Sensory Exam: normal sensation Other: A&O for Extrem: General: edema Other: 2+ pitting edema to bilateral and calves , edema does not extend past knee. Psych: Mental Status: mental status grossly normal Affect: normal affect Other: Good insight and judgment, pleasant Objective Data Vital Signs Vital Signs: Vital Signs - 24 hr 07/12/24 17:03 07/12/24 17:04 07/12/24 17:06 Temperature Pulse Rate 81 80 Respiratory Rate 33 H Blood Pressure 143/52 H Pulse Oximetry 94 94 Oxygen Delivery Nasal Cannula Oxygen Flow Rate 2 Fraction of Inspired Oxygen 07/12/24 17:50 07/12/24 18:03 07/12/24 18:26 Temperature Pulse Rate 81 84 84 Respiratory Rate 26 H 28 H 22 H Blood Pressure 126/78 Pulse Oximetry 98 Oxygen Delivery Oxygen Flow Rate Fraction of Inspired Oxygen 07/12/24 19:00 07/12/24 20:00 07/12/24 20:28 Temperature 36.7 C Pulse Rate 84 83 81 Respiratory Rate 27 H 24 H 32 H Blood Pressure 109/66 107/78 Pulse Oximetry 94 95 Oxygen Delivery Oxygen Flow Rate Fraction of Inspired Oxygen 07/12/24 20:35 07/12/24 21:00 07/12/24 21:35 Temperature 36.4 C Pulse Rate 83 85 87 Respiratory Rate 28 H 22 H 20 Blood Pressure 132/65 128/91 H Pulse Oximetry 94 94 Oxygen Delivery Oxygen Flow Rate Fraction of Inspired Oxygen 07/12/24 22:00 07/12/24 22:25 07/13/24 00:00 Temperature Pulse Rate 86 87 86 Respiratory Rate 20 Blood Pressure Pulse Oximetry 94 Oxygen Delivery Nasal Cannula Oxygen Flow Rate 2 Fraction of Inspired Oxygen 07/13/24 00:30 07/13/24 02:00 07/13/24 02:53 Temperature 37.0 C Pulse Rate 86 83 87 Respiratory Rate 20 23 H Blood Pressure 130/76 Pulse Oximetry 96 Oxygen Delivery Oxygen Flow Rate Fraction of Inspired Oxygen 07/13/24 03:00 07/13/24 04:00 07/13/24 04:04 Temperature 37.0 C Pulse Rate 97 97 Respiratory Rate 22 H Blood Pressure 156/78 H Pulse Oximetry 95 95 Oxygen Delivery Nasal Cannula Oxygen Flow Rate 2 Fraction of Inspired Oxygen 28 07/13/24 04:20 07/13/24 06:00 07/13/24 08:05 Temperature 36.7 C Pulse Rate 96 94 94 Respiratory Rate 18 22 H Blood Pressure 143/60 H Pulse Oximetry 95 93 Oxygen Delivery Nasal Cannula Oxygen Flow Rate 2 Fraction of Inspired Oxygen 07/13/24 08:28 07/13/24 08:28 07/13/24 08:43 Temperature Pulse Rate 91 91 100 Respiratory Rate 20 20 20 Blood Pressure Pulse Oximetry 90 Oxygen Delivery Nasal Cannula Oxygen Flow Rate 2 Fraction of Inspired Oxygen Intake/Output Intake/Output: Intake & Output 07/10/24 07/11/24 07/12/24 07/13/24 23:59 23:59 23:59 23:59 Intake Total 1600 1640 Output Total 500 Balance 1600 1140 Meds/Results Medications: Active Medications Generic Name Dose Route Start Last Admin Trade Name Freq PRN Reason Stop Dose Admin Acetaminophen 650 mg 07/12/24 16:33 Acetaminophen 325 Mg Tablet PO Q4H PRN Mild Pain (1-3) or Fever Albuterol 2 puff 07/13/24 11:30 Albuterol Sulfate (*Sp) Aerosol 1 Puff INHALATION TID PRN Shortness Of Breath Or Wheezing Albuterol/Ipratropium 3 ml 07/12/24 20:00 07/13/24 08:27 Ipratropium 0.5 Mg/Albuterol Sulfate 2.5 Mg Ampul.Neb 3 Ml INHALATION 3 ml Q6HRT [facility] Administration Amlodipine Besylate 10 mg 07/14/24 09:00 Amlodipine Besylate 10 Mg Tablet PO DAILY [facility] Aspirin 81 mg 07/14/24 09:00 Aspirin 81 Mg Enteric Tablet PO DAILY [facility] Atorvastatin Calcium 40 mg 07/14/24 09:00 Atorvastatin 40 Mg Tablet PO DAILY [facility] Benzocaine 1 lozenge 07/12/24 17:23 Benzocaine/Menthol (*Bkc) 18 Ea Lozenge PO PRN PRN Sore Throat Benzonatate 100 mg 07/12/24 17:23 Benzonatate 100 Mg Capsule PO TID PRN Cough Clonazepam 0.5 mg 07/13/24 11:30 Clonazepam (*Crx) 0.5 Mg Tablet PO Q12H PRN anxiety Dextrose 12.5 gm 07/12/24 17:24 Dextrose 50% 25 Gm/50 Ml Syringe IV PUSH PRN PRN Hypoglycemia Protocol Empagliflozin 25 mg 07/14/24 09:00 Empagliflozin 25 Mg Tablet PO QAM [facility] Furosemide 80 mg 07/14/24 09:00 Furosemide 80 Mg Tablet PO DAILY [facility] Glipizide 5 mg 07/14/24 09:00 Glipizide 5 Mg Tablet PO DAILY [facility]I Glucagon 1 mg 07/12/24 17:24 Glucagon For Inj 1 Mg Vial IM PRN PRN Hypoglycemia Protocol Glucose 15 gm 07/12/24 17:24 Glucose Oral Gel 15 Gm Of Glucse In 37.5 Gm Tube PO PRN PRN Hypoglycemia Protocol Guaifenesin 600 mg 07/12/24 18:00 07/13/24 09:24 Guaifenesin 12 Hr 600 Mg Tabcr PO 600 mg Q12HR [facility] Administration Hydralazine HCl 25 mg 07/13/24 17:00 Hydralazine Hcl 25 Mg Tablet PO BID [facility] Azithromycin 500 mg in 250 mls @ 250 mls/hr 07/13/24 12:00 Zithromax IVPB Q24H [facility] Dextrose 1,000 mls @ 100 mls/hr 07/12/24 17:24 Dextrose 5% 1,000 Ml IVPB PRN PRN Hypoglycemia Protocol Cefepime HCl 2 gm in 50 mls @ 100 mls/hr 07/12/24 20:00 07/12/24 22:00 Maxipime 2 Gm/Ns 50 Ml IVPB Infused Q24H [facility] Infusion Insulin Aspart 2 - 5 units 07/13/24 08:00 07/13/24 09:21 Insulin Aspart (*Bkc) 100 Units/Ml SUB-Q Not Given TIDWM [facility] Protocol Insulin Aspart 1 - 2 units 07/12/24 21:00 07/12/24 22:13 Insulin Aspart (*Bkc) 100 Units/Ml SUB-Q 1 units HS [facility] Administration Protocol Isosorbide Mononitrate 0 mg 07/13/24 11:30 Isosorbide Mononitrate 20 Mg Tablet PO .COMPLEX [facility] Metoprolol Succinate 25 mg 07/13/24 11:30 Metoprolol Succinate Ext Rel 25 Mg Tabcr PO Q12H [facility] Non-Formulary Medication 1.25 mg 07/13/24 11:30 Albuterol Sulfate INHALATION Q4-6H PRN shortness of breath or wheezing Oseltamivir Phosphate 30 mg 07/13/24 18:00 Oseltamivir Phosphate 30 Mg Capsule PO 07/16/24 18:01 Q24H [facility] Pantoprazole Sodium 40 mg 07/14/24 09:00 Pantoprazole 40 Mg Tablet PO DAILY [facility] Prednisone 40 mg 07/13/24 08:00 07/13/24 09:23 Prednisone 20 Mg Tablet PO 07/18/24 07:59 40 mg DAILY@0800 [facility] Administration Sodium Chloride 1 spray 07/13/24 02:38 07/13/24 04:05 Saline 0.65% Maikol Soln 44 Ml Btl NASAL 1 spray Q6HR PRN Administration Congestion Tamsulosin HCl 0.4 mg 07/14/24 09:00 Tamsulosin Hcl 0.4 Mg Capsule PO DAILY [facility] Ticagrelor 90 mg 07/13/24 11:30 Ticagrelor 90 Mg Tablet PO Q12H [facility] Vancomycin HCl 1 each 07/12/24 17:33 Vancomycin For Acute Kidney Injury IVPB PRN PRN Vancomycin Protocol Vitamin D units 07/13/24 21:00 Cholecalciferol 1,000 Units Tablet PO [facility] Radiology Results: ITS Impressions Chest X-Ray 07/12/24 14:16 IMPRESSION: 1. Airspace opacities at the lung bases, consistent with atelectasis versus pneumonia. 2. Small pleural effusions. 3. Cardiomegaly. Labs Labs: Laboratory Results - last 24 hr 07/12/24 07/12/24 07/12/24 13:49 18:03 20:13 WBC 11.0 H RBC 3.98 L Hgb 11.5 L Hct 36.8 L MCV 92.5 MCH 28.9 MCHC 31.3 L RDW 15.9 H Plt Count 204 MPV 11.5 H Immature Gran % (Auto) 1.3 H Neut % (Auto) 86.8 H Lymph % (Auto) 1.6 L Maverick % (Auto) 10.1 H Eos % (Auto) 0.0 Baso % (Auto) 0.2 Lymph # (Auto) 0.18 L Maverick # (Auto) 1.1 H Eos # (Auto) 0.0 Baso # (Auto) 0.0 Abs Immat Gran (auto) 0.14 H Absolute Neuts (auto) 9.6 H Absolute Nucleated RBC 0.000 Nucleated RBC % 0.0 PT 14.6 INR 1.1 APTT 25.7 Sodium 133 L Potassium 4.9 Chloride 95 L Carbon Dioxide 23 Anion Gap 15 H BUN 61 H Creatinine 2.91 H Estim Creat Clear Calc 15 Estimated GFR 21 L Glucose 228 H POC Capillary Glucose Lactic Acid 2.4 H 2.2 H Calcium 8.5 Magnesium 2.0 Total Bilirubin 0.8 AST 29 ALT 33 Alkaline Phosphatase 117 Troponin I 0.052 H* 0.060 H* NT-Pro-B Natriuret Pep > 09153 H Total Protein 7.0 Albumin 4.1 Procalcitonin Nasal MRSA (PCR) Not detected Influenza A (RT-PCR) Positive A Influenza B (RT-PCR) Negative RSV (RT-PCR) Negative SARS-CoV-2 RNA (RT-PCR) Negative 07/12/24 07/12/24 07/13/24 22:05 22:49 04:35 WBC 11.7 H RBC 3.76 L Hgb 11.0 L Hct 35.2 L MCV 93.6 MCH 29.3 MCHC 31.3 L RDW 16.1 H Plt Count 189 MPV 11.9 H Immature Gran % (Auto) 1.1 H Neut % (Auto) 84.5 H Lymph % (Auto) 2.3 L Maverick % (Auto) 11.9 H Eos % (Auto) 0.0 Baso % (Auto) 0.2 Lymph # (Auto) 0.27 L Maverick # (Auto) 1.4 H Eos # (Auto) 0.0 Baso # (Auto) 0.0 Abs Immat Gran (auto) 0.13 H Absolute Neuts (auto) 9.9 H Absolute Nucleated RBC 0.000 Nucleated RBC % 0.0 PT INR APTT Sodium 135 L Potassium 4.6 Chloride 99 Carbon Dioxide 20 L Anion Gap 16 H BUN 59 H Creatinine 2.78 H Estim Creat Clear Calc 18 Estimated GFR 22 L Glucose 91 POC Capillary Glucose 221 H Lactic Acid 3.0 H Calcium 7.9 L Magnesium Total Bilirubin 0.6 AST 44 ALT 50 Alkaline Phosphatase 135 H Troponin I 0.065 H* NT-Pro-B Natriuret Pep Total Protein 6.0 L Albumin 3.7 Procalcitonin 0.2 Nasal MRSA (PCR) Influenza A (RT-PCR) Influenza B (RT-PCR) RSV (RT-PCR) SARS-CoV-2 RNA (RT-PCR) 07/13/24 07/13/24 07:43 08:18 WBC RBC Hgb Hct MCV MCH MCHC RDW Plt Count MPV Immature Gran % (Auto) Neut % (Auto) Lymph % (Auto) Maverick % (Auto) Eos % (Auto) Baso % (Auto) Lymph # (Auto) Maverick # (Auto) Eos # (Auto) Baso # (Auto) Abs Immat Gran (auto) Absolute Neuts (auto) Absolute Nucleated RBC Nucleated RBC % PT INR APTT Sodium Potassium Chloride Carbon Dioxide Anion Gap BUN Creatinine Estim Creat Clear Calc Estimated GFR Glucose POC Capillary Glucose 109 H Lactic Acid 1.8 Calcium Magnesium Total Bilirubin AST ALT Alkaline Phosphatase Troponin I NT-Pro-B Natriuret Pep Total Protein Albumin Procalcitonin Nasal MRSA (PCR) Influenza A (RT-PCR) Influenza B (RT-PCR) RSV (RT-PCR) SARS-CoV-2 RNA (RT-PCR) Quality VTE Prophylaxis VTE prophylaxis: mechanical ordered
[2024-07-13 11:38] LABS: Glucose Point of Care 137 mg/dl (65-105)
[2024-07-13] MEDS: TAMSULOSIN HCL 0.4 MG CAPSULE PO (12:42)
[2024-07-13] MEDS: TICAGRELOR 90 MG TABLET PO ×2 (12:42→20:28)
[2024-07-13] MEDS: AZITHROMYCIN 500 MG/NS 250 ML 500 MG/250 ML BAG 250 MG IVPB (12:42)
[2024-07-13] MEDS: ATORVASTATIN 40 MG TABLET PO (12:43)
[2024-07-13] MEDS: amLODIPine BESYLATE 10 MG TABLET PO (12:43)
[2024-07-13] MEDS: EMPAGLIFLOZIN 25 MG TABLET PO (12:43)
[2024-07-13] MEDS: PANTOPRAZOLE 40 MG TABLET PO (12:43)
[2024-07-13] MEDS: ASPIRIN 81 MG ENTERIC TABLET PO (12:43)
[2024-07-13] MEDS: FUROSEMIDE 80 MG TABLET PO (12:44)
[2024-07-13] MEDS: METOPROLOL SUCCINATE EXT REL 25 MG TABCR PO ×2 (12:44→20:28)
[2024-07-13 15:42] LABS: Glucose Point of Care 203 mg/dl (65-105)
[2024-07-13] MEDS: hydrALAZINE HCL 25 MG TABLET PO (17:24)
[2024-07-13] MEDS: ISOSORBIDE MONONITRATE 20 MG TABLET PO (17:24)
[2024-07-13] MEDS: OSELTAMIVIR PHOSPHATE 30 MG CAPSULE PO (17:25)
[2024-07-13 20:11] LABS: Glucose Point of Care 347 mg/dl (65-105)
[2024-07-13] MEDS: CHOLECALCIFEROL 1,000 UNITS TABLET 2000 UNITS PO (20:28)
[2024-07-13] MEDS: clonazePAM (*CRX) 0.5 MG TABLET PO (20:29)
[2024-07-13] MEDS: BENZOCAINE/MENTHOL (*BKC) 18 EA LOZENGE 1 LOZENGE PO (20:31)
[2024-07-13] MEDS: INSULIN ASPART (*BKC) 100 UNITS/ML SUB-Q (20:31)
[2024-07-13] MEDS: CEFEPIME 2 GM/NS 50 ML 2 GM/50 ML BAG IVPB (20:33)
[2024-07-14] VITALS (28 sets, daily range): BP systolic 110–135; BP diastolic 45–80; PULSE 70–99; RESP 18–26; TEMP 36.4–37; O2SAT 92–100
[2024-07-14] MEDS: IPRATROPIUM 0.5 MG/ALBUTEROL SULFATE 2.5 MG AMPUL.NEB 3 ML INHALATION ×4 (03:08→20:19)
[2024-07-14] MEDS: amLODIPine BESYLATE 10 MG TABLET PO (09:00)
[2024-07-14] MEDS: TAMSULOSIN HCL 0.4 MG CAPSULE PO (09:00)
[2024-07-14] MEDS: ASPIRIN 81 MG ENTERIC TABLET PO (09:00)
[2024-07-14] MEDS: hydrALAZINE HCL 25 MG TABLET PO ×2 (09:00→17:16)
[2024-07-14] MEDS: PANTOPRAZOLE 40 MG TABLET PO (09:00)
[2024-07-14] MEDS: ATORVASTATIN 40 MG TABLET PO (09:01)
[2024-07-14] MEDS: predniSONE 20 MG TABLET 40 MG PO (09:01)
[2024-07-14] MEDS: glipiZIDE 5 MG TABLET PO (09:01)
[2024-07-14] MEDS: EMPAGLIFLOZIN 25 MG TABLET PO (09:01)
[2024-07-14] MEDS: TICAGRELOR 90 MG TABLET PO ×2 (09:01→20:30)
[2024-07-14] MEDS: FUROSEMIDE 80 MG TABLET PO (09:01)
[2024-07-14] MEDS: METOPROLOL SUCCINATE EXT REL 25 MG TABCR PO ×2 (09:01→20:30)
--- NOTE | 2024-07-14 09:40 | P.PNIM_ITS ---
Progress Note: A&P Assessment and Plan (1) Acute on chronic combined systolic and diastolic heart failure: Code(s): I50.43 - Acute on chronic combined systolic (congestive) and diastolic (congestive) heart failure Status: Acute (2) CHF exacerbation: Code(s): I50.9 - Heart failure, unspecified Status: Acute (3) Elevated troponin: Code(s): R79.89 - Other specified abnormal findings of blood chemistry Status: Acute (4) Diabetes mellitus: Qualifiers: Diabetes mellitus type: type 2 Diabetes mellitus datapower consultant insulin use: without datapower consultant use Diabetes mellitus complication status: with other specified complication Qualified Code(s): E11.69 - Type 2 diabetes mellitus with other specified complication Code(s): E11.9 - Type 2 diabetes mellitus without complications Status: Chronic (5) Protein-calorie malnutrition, mild: Code(s): E44.1 - Mild protein-calorie malnutrition Status: Acute (6) [id number] kidney injury: Code(s): N17.9 - Acute kidney failure, unspecified; N18.9 - Chronic kidney disease, unspecified Status: Acute (7) Influenza: Code(s): J11.1 - Influenza due to unidentified influenza virus with other respiratory manifestations Status: Acute (8) Acute and chronic respiratory failure with hypercapnia: Code(s): J96.22 - Acute and chronic respiratory failure with hypercapnia Status: Acute (9) COPD exacerbation: Code(s): J44.1 - Chronic obstructive pulmonary disease with (acute) exacerbation Status: Acute Plan (1) Pneumonia: Qualifiers: Laterality: bilateral Lung location: lower lobe of lung Pneumonia type: due to unspecified organism Qualified Code(s): J18.9 - Pneumonia, unspecified organism Code(s): J18.9 - Pneumonia, unspecified organism Status: Acute Assessment and Plan: - did not meet SIRS criteria, however lactic elevated at 2.4. Blood cultures obtained on 07/12, follow. Plan for 2L bolus. trend lactic down. - CXR: 1. Airspace opacities at the lung bases, consistent with atelectasis versus pneumonia. 2. Small pleural effusions. 3. Cardiomegaly. - risk factors and complicating factors: chronic respiratory failure, COPD, influenza, recent pneumonia/hospitalization/ABX use - started on ceftriaxone and azithromycin on to 6, will exchanged to cefepime, azithromycin, and vancomycin on 07/12 - MRSA PCR and sputum culture - Viral PCR: +Flu A - continue baseline supplemental O2: 2L NC (2) Influenza: Code(s): J11.1 - Influenza due to unidentified influenza virus with other respiratory manifestations Status: Acute Assessment and Plan: - tested positive for influenza A on 07/11 - CXR c/f PNA - Tamiflu 75 mg BID, symptoms worsened/developed cough in the last 2 days - supportive care: Tylenol p.r.n. Mucinex malachi DuoNeb p.r.n. Tessalon Perles p.r.n. Lozenge p.r.n. - monitor WBC/CBC (3) Chronic obstructive pulmonary disease: Qualifiers: COPD type: unspecified COPD Qualified Code(s): J44.9 - Chronic obstructive pulmonary disease, unspecified Code(s): J44.9 - Chronic obstructive pulmonary disease, unspecified Status: Acute Assessment and Plan: - DuoNeb Malachi Switch from prednisone 40 p.o. daily to methylprednisone IV (4) Elevated troponin: Code(s): R79.89 - Other specified abnormal findings of blood chemistry Status: Acute Assessment and Plan: - EKG, initial: Sinus rhythm, rate 82, left atrial enlargement, ST-T-wave abnormality in diffuse leads consider ischemia, baseline artifact. When compared to EKG done on 06/25/2024, there are no significant changes. - Troponin: 0.052 (previously 0.035 on 07/03/2024), 3 and 6 hour ordered - ASA 324 given -echo, previous (02/2024): He systolic function moderately reduced, estimated EF 40-45%, grade 3 diastolic dysfunction. See report for details. - cardiac catheterization, previous, 06/13/23: Dr. 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 LM 70-80%, LAD diffuse disease with severe stenosis in apical segment, LCx prox 80%, RCA with diffuse disease with severe stenosis in mid PDA; PCI to prox LCx and PCI to LM. 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 IV push Chronic kidney disease, stage 4 (severe): Code(s): N18.4 - Chronic kidney disease, stage 4 (severe) Status: Chronic Assessment and Plan: - creatinine 2.91 and GFR 21, previously 2.57 and GFR 24 on Patient received fluid resuscitation 2 L bolus -> 125 mL/hr x1L. monitor toleration, hx of HF. - trend renal function - trend electrolytes, correct as needed f/u BMP UA Type 2 diabetes mellitus: Qualifiers: Diabetes mellitus longterm insulin use: without datapower consultant use Diabetes mellitus complication status: with kidney complications Diabetes mellitus complication detail: with chronic kidney disease Chronic kidney disease stage: stage 4 (severe) Qualified Code(s): E11.22 - Type 2 diabetes mellitus with diabetic chronic kidney disease; N18.4 - Chronic kidney disease, stage 4 (severe) Code(s): E11.9 - Type 2 diabetes mellitus without complications Status: Chronic Assessment and Plan: - hypoglycemia protocol - POC blood glucose ACHS - home medication: Hold Jardiance, glipizide. Continue NovoLog sliding scale. - correct regimen ordered - low dose TIDWM and HS, based off BMI. May need titration, started on steroid course. - A1C 7.5% on 06/25/2024 (8) Hypertension: Qualifiers: Hypertension type: secondary to other renal disorders Qualified Code(s ): I15.1 - Hypertension secondary to other renal disorders Code(s): I10 - Essential (primary) hypertension Status: Chronic Assessment and Plan: - chronic, currently 143/52 - continue home medications: metoprolol, Imdur, hydralazine, Lasix, amlodipine - monitor Patient still has significant dyspnea and cough, continue inpatient treatment Diet: Heart healthy GI Prophylaxis: Not currently indicated DVT Prophylaxis: SCDs Lines: Peripheral Code Status: DNR Subjective Date/time seen: 07/14/24 09:40 Interval history: Patient is afebrile, blood pressure stable, patient is on 5 L oxygen. Patient still has severe cough and shortness breath on mild exertion. Patient denies chest pain but feels chest tightness with cough. Patient denies abdomen pain nausea vomiting diarrhea Exam Narrative: GENERAL: Ill-appearing, in no acute distress. Well-nourished. - EYES: EOMI. Anicteric. - HENT: Moist mucous membranes. - LUNGS: Crackles bilateral base, tachy pnea, scattered wheezing, distant breath sounds - CARDIOVASCULAR: Regular rate and rhyth m. No murmur. No JVD. - ABDOMEN: Soft, non-tender and non-dist ended. No palpable masses. - EXTREMITIES: No edema. Peripheral puls es 2+. Non-tender. - NEUROLOGIC: No focal neurological defi cits. CN II-XII grossly intact. General weakness - PSYCHIATRIC: Awake, Alert and oriented x 3. Appropriate mood and affect. - SKIN: No rashes or lesions. Warm. - LYMPH: No cervical lymphadenopathy. Objective Data Vital Signs Vital Signs: Vital Signs - 24 hr 07/13/24 10:00 07/13/24 12:00 07/13/24 12:00 Temperature 97.9 F Pulse Rate 97 96 92 Respiratory Rate 22 H Blood Pressure 136/58 L Pulse Oximetry 94 Oxygen Delivery Oxygen Flow Rate 07/13/24 12:44 07/13/24 13:33 07/13/24 13:33 Temperature Pulse Rate 93 91 91 Respiratory Rate 20 20 Blood Pressure Pulse Oximetry 96 Oxygen Delivery Nasal Cannula Oxygen Flow Rate 07/13/24 13:41 07/13/24 14:00 07/13/24 15:18 Temperature 97.9 F Pulse Rate 92 89 89 Respiratory Rate 20 24 H Blood Pressure 129/60 Pulse Oximetry 95 Oxygen Delivery Oxygen Flow Rate 07/13/24 16:00 07/13/24 17:38 07/13/24 19:29 Temperature 97.7 F Pulse Rate 87 83 84 Respiratory Rate 22 H Blood Pressure 100/55 L Pulse Oximetry 95 Oxygen Delivery Oxygen Flow Rate 07/13/24 20:00 07/13/24 20:28 07/13/24 20:30 Temperature Pulse Rate 83 84 83 Respiratory Rate Blood Pressure Pulse Oximetry 93 Oxygen Delivery Nasal Cannula Oxygen Flow Rate 4 07/13/24 20:44 07/13/24 20:44 07/13/24 20:53 Temperature Pulse Rate 92 91 Respiratory Rate 20 20 Blood Pressure Pulse Oximetry 96 Oxygen Delivery Nasal Cannula Oxygen Flow Rate 4 07/13/24 22:00 07/13/24 23:39 07/14/24 00:00 Temperature 98.3 F Pulse Rate 82 80 80 Respiratory Rate 22 H Blood Pressure 106/87 Pulse Oximetry 97 Oxygen Delivery Oxygen Flow Rate 07/14/24 00:20 07/14/24 02:00 07/14/24 03:08 Temperature Pulse Rate 78 99 Respiratory Rate 20 Blood Pressure Pulse Oximetry 92 Oxygen Delivery Nasal Cannula Oxygen Flow Rate 5 07/14/24 04:00 07/14/24 04:09 07/14/24 04:10 Temperature 98.6 F Pulse Rate 78 79 Respiratory Rate 22 H Blood Pressure 110/80 Pulse Oximetry 100 100 Oxygen Delivery Nasal Cannula Oxygen Flow Rate 5 07/14/24 06:00 07/14/24 08:00 07/14/24 08:00 Temperature 97.6 F Pulse Rate 76 73 Respiratory Rate 18 Blood Pressure 133/57 L Pulse Oximetry 96 96 Oxygen Delivery Nasal Cannula Oxygen Flow Rate 4 07/14/24 08:02 07/14/24 09:01 Temperature Pulse Rate 77 80 Respiratory Rate 20 Blood Pressure Pulse Oximetry Oxygen Delivery Oxygen Flow Rate Intake/Output Intake/Output: Intake & Output 07/11/24 07/12/24 07/13/24 07/14/24 23:59 23:59 23:59 23:59 Intake Total 1600 2500 550 Output Total 1175 801 Balance 1600 1325 -584 Meds/Results Medications: Active Medications Generic Name Dose Route Start Last Admin Trade Name Freq PRN Reason Stop Dose Admin Acetaminophen 650 mg 07/12/24 16:33 Acetaminophen 325 Mg Tablet PO Q4H PRN Mild Pain (1-3) or Fever Albuterol 2 puff 07/13/24 11:30 Albuterol Sulfate (*Sp) Aerosol 1 Puff INHALATION TID PRN Shortness Of Breath Or Wheezing Albuterol/Ipratropium 3 ml 07/12/24 20:00 07/14/24 07:48 Ipratropium 0.5 Mg/Albuterol Sulfate 2.5 Mg Ampul.Neb 3 Ml INHALATION 3 ml Q6HRT MALACHI Administration Amlodipine Besylate 10 mg 07/13/24 11:40 07/14/24 09:00 Amlodipine Besylate 10 Mg Tablet PO 10 mg DAILY MALACHI Administration Aspirin 81 mg 07/13/24 11:40 07/14/24 09:00 Aspirin 81 Mg Enteric Tablet PO 81 mg DAILY MALACHI Administration Atorvastatin Calcium 40 mg 07/13/24 11:40 07/14/24 09:01 Atorvastatin 40 Mg Tablet PO 40 mg DAILY MALACHI Administration Benzocaine 1 lozenge 07/12/24 17:23 07/13/24 20:31 Benzocaine/Menthol (*Bkc) 18 Ea Lozenge PO 1 lozenge PRN PRN Administration Sore Throat Benzonatate 100 mg 07/12/24 17:23 Benzonatate 100 Mg Capsule PO TID PRN Cough Clonazepam 0.5 mg 07/13/24 11:30 07/13/24 20:29 Clonazepam (*Crx) 0.5 Mg Tablet PO 0.5 mg Q12H PRN Administration anxiety Dextrose 12.5 gm 07/12/24 17:24 Dextrose 50% 25 Gm/50 Ml Syringe IV PUSH PRN PRN Hypoglycemia Protocol Empagliflozin 25 mg 07/13/24 11:40 07/14/24 09:01 Empagliflozin 25 Mg Tablet PO 25 mg QAM MALACHI Administration Furosemide 80 mg 07/13/24 11:40 07/14/24 09:01 Furosemide 80 Mg Tablet PO 80 mg DAILY MALACHI Administration Glipizide 5 mg 07/14/24 09:00 07/14/24 09:01 Glipizide 5 Mg Tablet PO 5 mg DAILY MALACHI Administration Glucagon 1 mg 07/12/24 17:24 Glucagon For Inj 1 Mg Vial IM PRN PRN Hypoglycemia Protocol Glucose 15 gm 07/12/24 17:24 Glucose Oral Gel 15 Gm Of Glucse In 37.5 Gm Tube PO PRN PRN Hypoglycemia Protocol Guaifenesin 600 mg 07/12/24 18:00 07/13/24 20:28 Guaifenesin 12 Hr 600 Mg Tabcr PO 600 mg Q12HR MALACHI Administration Hydralazine HCl 25 mg 07/13/24 17:00 07/14/24 09:00 Hydralazine Hcl 25 Mg Tablet PO 25 mg BID MALACHI Administration Azithromycin 500 mg in 250 mls @ 250 mls/hr 07/13/24 12:00 07/13/24 12:42 Zithromax IVPB 07/18/24 23:59 250 mls/hr Q24H MALACHI Administration Dextrose 1,000 mls @ 100 mls/hr 07/12/24 17:24 Dextrose 5% 1,000 Ml IVPB PRN PRN Hypoglycemia Protocol Cefepime HCl 2 gm in 50 mls @ 100 mls/hr 07/12/24 20:00 07/13/24 20:33 Maxipime 2 Gm/Ns 50 Ml IVPB 100 mls/hr Q24H MALACHI Administration Insulin Aspart 2 - 5 units 07/13/24 08:00 07/14/24 09:11 Insulin Aspart (*Bkc) 100 Units/Ml SUB-Q Not Given TIDWM MALACHI Protocol Insulin Aspart 1 - 2 units 07/12/24 21:00 07/13/24 20:31 Insulin Aspart (*Bkc) 100 Units/Ml SUB-Q 2 units HS MALACHI Administration Protocol Isosorbide Mononitrate 20 mg 07/13/24 16:00 07/13/24 17:24 Isosorbide Mononitrate 20 Mg Tablet PO 20 mg 0900,1600 MALACHI Administration Metoprolol Succinate 25 mg 07/13/24 11:45 07/14/24 09:01 Metoprolol Succinate Ext Rel 25 Mg Tabcr PO 25 mg Q12HR MALACHI Administration Oseltamivir Phosphate 30 mg 07/13/24 18:00 07/13/24 17:25 Oseltamivir Phosphate 30 Mg Capsule PO 07/16/24 18:01 30 mg Q24H MALACHI Administration Pantoprazole Sodium 40 mg 07/13/24 11:40 07/14/24 09:00 Pantoprazole 40 Mg Tablet PO 40 mg DAILY MALACHI Administration Prednisone 40 mg 07/13/24 08:00 07/14/24 09:01 Prednisone 20 Mg Tablet PO 07/18/24 07:59 40 mg DAILY@0800 MALACHI Administration Sodium Chloride 1 spray 07/13/24 02:38 07/13/24 04:05 Saline 0.65% Maikol Soln 44 Ml Btl NASAL 1 spray Q6HR PRN Administration Congestion Tamsulosin HCl 0.4 mg 07/13/24 11:40 07/14/24 09:00 Tamsulosin Hcl 0.4 Mg Capsule PO 0.4 mg DAILY MALACHI Administration Ticagrelor 90 mg 07/13/24 11:40 07/14/24 09:01 Ticagrelor 90 Mg Tablet PO 90 mg Q12HR MALACHI Administration Vitamin D 2,000 units 07/13/24 21:00 07/13/24 20:28 Cholecalciferol 1,000 Units Tablet PO 2,000 units HS MALACHI Administration Radiology Results: ITS Impressions Chest X-Ray 07/12/24 14:16 IMPRESSION: 1. Airspace opacities at the lung bases, consistent with atelectasis versus pneumonia. 2. Small pleural effusions. 3. Cardiomegaly. Labs Labs: Laboratory Results - last 24 hr 07/13/24 07/13/24 07/13/24 11:14 15:17 20:06 POC Capillary Glucose 137 H 203 H 347 H
[2024-07-14] MEDS: ALBUTEROL SULFATE (*SP) AEROSOL 1 PUFF 2 PUFF INHALATION ×2 (10:43→15:14)
[2024-07-14 11:14] LABS: Glucose Point of Care 250 mg/dl (65-105)
[2024-07-14] MEDS: FUROSEMIDE INJ 40 MG/4 ML VIAL IV PUSH ×2 (11:14→17:14)
[2024-07-14 12:13] LABS: Basophils Percent Auto 0.2 % (0.2-1.2); Hematocrit 34.4 % (42.0-52.0); Hemoglobin 10.6 g/dL (14.0-18.0); Immature Granulocyte Absolute 0.13 K/mm3 (0.00-0.031); Immature Granulocyte Percent A 1.1 % (0-0.5); Lymphocytes Absolute Auto 0.29 K/mm3 (0.9-3.2); Lymphocytes Percent Auto 2.3 % (18.3-44.2); Mean Corpuscular HGB Conc 30.8 g/dl (32-36); Mean Corpuscular Hemoglobin 28.7 pg (26-34); Mean Corpuscular Volume 93.2 fl (80-100); Mean Platelet Volume 11.5 fl (7.4-10.4); Monocytes Absolute Auto 1.1 K/mm3 (0.1-0.6); Monocytes Percent Auto 8.9 % (2.6-8.5); Neutrophils Absolute Auto 10.8 K/mm3 (1.3-6.7); Neutrophils Percent Auto 87.5 % (45.5-73.1); Platelet Count Result 188 k/mm3 (150-375); Red Blood Count 3.69 M/mm3 (4.6-6.20); Red Cell Distribution Width 15.8 % (11.5-14.5); White Blood Count 12.4 K/mm3 (4.5-10.0)
[2024-07-14 12:24] LABS: Anion Gap 15 mmol/L (4-12); Blood Urea Nitrogen 69 mg/dL (9-20); Calcium 7.9 mg/dL (8.4-10.2); Carbon Dioxide 20 mmol/L (22-30); Chloride 97 mmol/L (98-107); Estimated CRCL calculation 18 ml/min; Estimated Glomerular Filt Rate 22; Glucose 269 mg/dL (65-110); Potassium 4.4 mmol/L (3.4-5.0); Sodium 132 mmol/L (137-145)
[2024-07-14 12:38] LABS: Anisocytosis 1+; Platelet Estimate Adequate (Adequate)
[2024-07-14 12:39] LABS: Burr Cells 1+; Schistocytes None Seen
[2024-07-14] MEDS: AZITHROMYCIN 500 MG/NS 250 ML 500 MG/250 ML BAG 250 MG IVPB (13:24)
[2024-07-14] MEDS: guaiFENesin 12 HR 600 MG TABCR PO ×2 (13:24→20:28)
[2024-07-14] MEDS: ISOSORBIDE MONONITRATE 20 MG TABLET PO ×2 (13:24→17:16)
[2024-07-14] MEDS: methylPREDNISolone SOD SUCC 125 MG VIAL 60 MG IV PUSH ×2 (14:19→18:44)
[2024-07-14 14:45] LABS: Add Urine Microscopic? YES; Appearance Urine Cloudy (Clear); Bacteria Urine None Seen /hpf; Bilirubin Urine Negative (Negative); Blood Urine 2+ (Negative); Color Urine Yellow (Yellow); Glucose Urine UA 3+ mg/dL (Negative); Ketones Urine Negative (Negative); Leukocyte Esterase Ur Trace LEU/UL (Negative); Mucus Urine Present /lpf; Need Manual Microscopic Reviewed; Nitrate Urine Negative (Negative); Protein Urine 1+ mg/dL (Negative); Specific Grav Ur 1.016 (1.001-1.035); Squamous Epithelial Cell Urine None Seen /hpf (Few); Urobilinogen Urine 0.2 mg/dL (<2.0)
[2024-07-14 17:05] LABS: Glucose Point of Care 359 mg/dl (65-105)
[2024-07-14 17:05] LABS: Glucose Point of Care 287 mg/dl (65-105)
[2024-07-14] MEDS: OSELTAMIVIR PHOSPHATE 30 MG CAPSULE PO (17:16)
[2024-07-14] MEDS: INSULIN ASPART (*BKC) 100 UNITS/ML SUB-Q ×2 (17:18→22:00)
[2024-07-14] MEDS: CEFEPIME 2 GM/NS 50 ML 2 GM/50 ML BAG IVPB (20:28)
[2024-07-14] MEDS: CHOLECALCIFEROL 1,000 UNITS TABLET 2000 UNITS PO (20:29)
[2024-07-14] MEDS: clonazePAM (*CRX) 0.5 MG TABLET PO (20:29)
[2024-07-14] MEDS: ACETAMINOPHEN 325 MG TABLET 650 MG PO (20:29)
[2024-07-14] MEDS: BENZONATATE 100 MG CAPSULE PO (20:31)
[2024-07-14 21:48] LABS: Glucose Point of Care 348 mg/dl (65-105)
[2024-07-15] VITALS (30 sets, daily range): BP systolic 113–144; BP diastolic 48–96; PULSE 76–94; RESP 18–24; TEMP 36.4–37.2; O2SAT 92–98
[2024-07-15] MEDS: methylPREDNISolone SOD SUCC 125 MG VIAL 60 MG IV PUSH ×5 (00:22→23:51)
[2024-07-15] MEDS: IPRATROPIUM 0.5 MG/ALBUTEROL SULFATE 2.5 MG AMPUL.NEB 3 ML INHALATION ×4 (02:17→21:29)
[2024-07-15 08:04] LABS: Glucose Point of Care 349 mg/dl (65-105)
--- NOTE | 2024-07-15 09:11 | P.PNIM_ITS ---
Progress Note: A&P Assessment and Plan (1) Acute on chronic combined systolic and diastolic heart failure: Code(s): I50.43 - Acute on chronic combined systolic (congestive) and diastolic (congestive) heart failure Status: Acute (2) CHF exacerbation: Code(s): I50.9 - Heart failure, unspecified Status: Acute (3) Elevated troponin: Code(s): R79.89 - Other specified abnormal findings of blood chemistry Status: Acute (4) Diabetes mellitus: Qualifiers: Diabetes mellitus complication status: with other specified complication Diabetes mellitus ad terminal makeup operator insulin use: without ad terminal makeup operator use Diabetes mellitus type: type 2 Qualified Code(s): E11.69 - Type 2 diabetes mellitus with other specified complication Code(s): E11.9 - Type 2 diabetes mellitus without complications Status: Chronic (5) Protein-calorie malnutrition, mild: Code(s): E44.1 - Mild protein-calorie malnutrition Status: Acute (6) [id number] kidney injury: Code(s): N17.9 - Acute kidney failure, unspecified; N18.9 - Chronic kidney disease, unspecified Status: Acute (7) Influenza: Code(s): J11.1 - Influenza due to unidentified influenza virus with other respiratory manifestations Status: Acute (8) Acute and chronic respiratory failure with hypercapnia: Code(s): J96.22 - Acute and chronic respiratory failure with hypercapnia Status: Acute (9) COPD exacerbation: Code(s): J44.1 - Chronic obstructive pulmonary disease with (acute) exacerbation Status: Acute Plan (1) Pneumonia: Qualifiers: Laterality: bilateral Lung location: lower lobe of lung Pneumonia type: due to unspecified organism Qualified Code(s): J18.9 - Pneumonia, unspecified organism Code(s): J18.9 - Pneumonia, unspecified organism Status: Acute Assessment and Plan: - did not meet SIRS criteria, however lactic elevated at 2.4. Blood cultures obtained on 07/12, follow. Plan for 2L bolus. trend lactic down. - CXR: 1. Airspace opacities at the lung bases, consistent with atelectasis versus pneumonia. 2. Small pleural effusions. 3. Cardiomegaly. Possible community-acquired pneumonia due to viral infection and better infection Started on ceftriaxone and azithromycin on to 6, exchanged to cefepime, azithromycin, and vancomycin on 07/12 and Tamiflu MRSA negative Continue cefepime and azithromycin (2) Influenza: Code(s): J11.1 - Influenza due to unidentified influenza virus with other respiratory manifestations Status: Acute Assessment and Plan: - tested positive for influenza A on 07/11 - CXR c/f PNA - Tamiflu 75 mg BID, symptoms worsened/developed cough in the last 2 days - supportive care: Tylenol p.r.n. Mucinex adela DuoNeb p.r.n. Tessalon Perles p.r.n. Lozenge p.r.n. - monitor WBC/CBC Acute on chronic obstructive pulmonary disease: Qualifiers: COPD type: unspecified COPD Qualified Code(s): J44.9 - Chronic obstructive pulmonary disease, unspecified Code(s): J44.9 - Chronic obstructive pulmonary disease, unspecified Status: Acute Assessment and Plan: COPD exacerbation due to pneumonia and influenza effect Switch from prednisone 40 p.o. daily to methylprednisone IV (4) Elevated troponin: Code(s): R79.89 - Other specified abnormal findings of blood chemistry Status: Acute Assessment and Plan: - EKG, initial: Sinus rhythm, rate 82, left atrial enlargement, ST-T-wave abnormality in diffuse leads consider ischemia, baseline artifact. When compared to EKG done on 06/25/2024, there are no significant changes. - Troponin: 0.052 (previously 0.035 on 07/03/2024), 3 and 6 hour ordered - ASA 324 given -echo, previous (02/2024): He systolic function moderately reduced, estimated EF 40-45%, grade 3 diastolic dysfunction. See report for details. - cardiac catheterization, previous, 06/13/23: Dr. Pablo at [facility] - AIR EXPORT COORDINATOR of right common iliac artery. LM 70-80%, LAD diffuse disease with severe stenosis in apical segment, LCx prox 80%, RCA with diffuse disease with severe stenosis in mid PDA; PCI to prox LCx and PCI to LM. 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 IV push Chronic kidney disease, stage 4 (severe): Code(s): N18.4 - Chronic kidney disease, stage 4 (severe) Status: Chronic Assessment and Plan: - creatinine 2.91 and GFR 21, previously 2.57 and GFR 24 on Patient received fluid resuscitation 2 L bolus -> 125 mL/hr x1L. monitor toleration, hx of HF. Creatinine on the base Type 2 diabetes mellitus: Qualifiers: Diabetes mellitus ad terminal makeup operator insulin use: without skilled nursing use Diabetes mellitus complication status: with kidney complications Diabetes mellitus complication detail: with chronic kidney disease Chronic kidney disease stage: stage 4 (severe) Qualified Code(s): E11.22 - Type 2 diabetes mellitus with diabetic chronic kidney disease; N18.4 - Chronic kidney disease, stage 4 (severe) Code(s): E11.9 - Type 2 diabetes mellitus without complications Status: Chronic Assessment and Plan: - hypoglycemia protocol - POC blood glucose ACHS - home medication: Hold Jardiance, glipizide. Continue NovoLog sliding scale. - correct regimen ordered - low dose TIDWM and HS, based off BMI. May need titration, started on steroid course. - A1C 7.5% on 06/25/2024 Hypertension: Qualifiers: Hypertension type: secondary to other renal disorders Qualified Code(s): I15.1 - Hypertension secondary to other renal disorders Code(s): I10 - Essential (primary) hypertension Status: Chronic Assessment and Plan: Blood pressure is controlled Continue metoprolol, Imdur, hydralazine, Lasix, amlodipine Patient still has significant dyspnea and cough, continue inpatient treatment Diet: Heart healthy GI Prophylaxis: Not currently indicated DVT Prophylaxis: SCDs Lines: Peripheral Code Status: DNR Subjective Date/time seen: 07/15/24 09:11 Interval history: Patient is afebrile, blood pressure stable, patient is on 5 L oxygen. Patient still has severe cough and shortness breath on mild exertion. Patient feels better today dyspnea is improving. Patient denies chest pain but feels chest tightness with cough. Patient denies abdomen pain nausea vomiting diarrhea Exam Narrative: GENERAL: Ill-appearing, in no acute distress. Well-nourished. - EYES: EOMI. Anicteric. - HENT: Moist mucous membranes. - LUNGS: Crackles bilateral base, but i mproving. Tachypnea, scattered wheezing, distant breath sounds - CARDIOVASCULAR: Regular rate and rhyth m. No murmur. No JVD. - ABDOMEN: Soft, non-tender and non-dist ended. No palpable masses. - EXTREMITIES: No edema. Peripheral puls es 2+. Non-tender. - NEUROLOGIC: No focal neurological defi cits. CN II-XII grossly intact. General weakness - PSYCHIATRIC: Awake, Alert and oriented x 3. Appropriate mood and affect. - SKIN: No rashes or lesions. Warm. - LYMPH: No cervical lymphadenopathy. Objective Data Vital Signs Vital Signs: Vital Signs - 24 hr 07/14/24 10:00 07/14/24 10:45 07/14/24 10:45 Temperature Pulse Rate 86 84 84 Respiratory Rate 24 H 24 H Blood Pressure Pulse Oximetry 98 Oxygen Delivery Nasal Cannula Oxygen Flow Rate 5 07/14/24 12:00 07/14/24 12:00 07/14/24 12:00 Temperature 97.6 F Pulse Rate 86 85 Respiratory Rate 18 Blood Pressure 127/64 Pulse Oximetry 97 95 Oxygen Delivery Nasal Cannula Oxygen Flow Rate 07/14/24 13:51 07/14/24 14:00 07/14/24 14:07 Temperature Pulse Rate 83 93 85 Respiratory Rate 20 20 Blood Pressure Pulse Oximetry Oxygen Delivery Oxygen Flow Rate 07/14/24 15:16 07/14/24 16:00 07/14/24 16:00 Temperature 98.0 F Pulse Rate 85 84 Respiratory Rate 26 H 26 H Blood Pressure 135/55 L Pulse Oximetry 93 95 Oxygen Delivery Nasal Cannula Oxygen Flow Rate 5 07/14/24 16:00 07/14/24 18:00 07/14/24 20:00 Temperature Pulse Rate 88 95 79 Respiratory Rate Blood Pressure Pulse Oximetry Oxygen Delivery Oxygen Flow Rate 07/14/24 20:14 07/14/24 20:19 07/14/24 20:19 Temperature 98.6 F Pulse Rate 78 79 79 Respiratory Rate 22 H 26 H 26 H Blood Pressure 116/45 L Pulse Oximetry 100 99 Oxygen Delivery Nasal Cannula Oxygen Flow Rate 5 07/14/24 20:20 07/14/24 20:24 07/14/24 20:30 Temperature Pulse Rate 70 81 Respiratory Rate 26 H Blood Pressure Pulse Oximetry 100 Oxygen Delivery Nasal Cannula Oxygen Flow Rate 5 07/14/24 22:00 07/15/24 00:00 07/15/24 00:11 Temperature 98.3 F Pulse Rate 82 78 80 Respiratory Rate 22 H Blood Pressure 144/96 H Pulse Oximetry 92 Oxygen Delivery Oxygen Flow Rate 07/15/24 00:20 07/15/24 02:00 07/15/24 02:14 Temperature Pulse Rate 77 77 Respiratory Rate 20 Blood Pressure Pulse Oximetry 92 Oxygen Delivery Nasal Cannula Oxygen Flow Rate 5 07/15/24 02:23 07/15/24 04:00 07/15/24 04:15 Temperature Pulse Rate 77 79 Respiratory Rate 20 Blood Pressure Pulse Oximetry 94 Oxygen Delivery Nasal Cannula Oxygen Flow Rate 5 07/15/24 04:17 07/15/24 06:00 07/15/24 07:54 Temperature 98.6 F Pulse Rate 79 76 Respiratory Rate 23 H Blood Pressure 116/61 Pulse Oximetry 95 96 Oxygen Delivery Nasal Cannula Oxygen Flow Rate 5 07/15/24 07:54 07/15/24 08:31 Temperature 97.6 F Pulse Rate 79 76 Respiratory Rate 20 20 Blood Pressure 123/54 L Pulse Oximetry 98 Oxygen Delivery Oxygen Flow Rate Intake/Output Intake/Output: Intake & Output 07/12/24 07/13/24 07/14/24 07/15/24 23:59 23:59 23:59 23:59 Intake Total 1600 2800 1150 840 Output Total 1175 1251 700 Balance 1600 1625 -101 140 Meds/Results Medications: Active Medications Generic Name Dose Route Start Last Admin Trade Name Freq PRN Reason Stop Dose Admin Acetaminophen 650 mg 07/12/24 16:33 07/14/24 20:29 Acetaminophen 325 Mg Tablet PO 650 mg Q4H PRN Administration Mild Pain (1-3) or Fever Albuterol 2 puff 07/13/24 11:30 07/14/24 15:14 Albuterol Sulfate (*Sp) Aerosol 1 Puff INHALATION 2 puff TID PRN Administration Shortness Of Breath Or Wheezing Albuterol/Ipratropium 3 ml 07/12/24 20:00 07/15/24 07:54 Ipratropium 0.5 Mg/Albuterol Sulfate 2.5 Mg Ampul.Neb 3 Ml INHALATION 3 ml Q6HRT ADELA Administration Amlodipine Besylate 10 mg 07/13/24 11:40 07/14/24 09:00 Amlodipine Besylate 10 Mg Tablet PO 10 mg DAILY ADELA Administration Aspirin 81 mg 07/13/24 11:40 07/14/24 09:00 Aspirin 81 Mg Enteric Tablet PO 81 mg DAILY ADELA Administration Atorvastatin Calcium 40 mg 07/13/24 11:40 07/14/24 09:01 Atorvastatin 40 Mg Tablet PO 40 mg DAILY ADELA Administration Benzocaine 1 lozenge 07/12/24 17:23 07/13/24 20:31 Benzocaine/Menthol (*Bkc) 18 Ea Lozenge PO 1 lozenge PRN PRN Administration Sore Throat Benzonatate 100 mg 07/12/24 17:23 07/14/24 20:31 Benzonatate 100 Mg Capsule PO 100 mg TID PRN Administration Cough Clonazepam 0.5 mg 07/13/24 11:30 07/14/24 20:29 Clonazepam (*Crx) 0.5 Mg Tablet PO 0.5 mg Q12H PRN Administration anxiety Dextrose 12.5 gm 07/12/24 17:24 Dextrose 50% 25 Gm/50 Ml Syringe IV PUSH PRN PRN Hypoglycemia Protocol Empagliflozin 25 mg 07/13/24 11:40 07/14/24 09:01 Empagliflozin 25 Mg Tablet PO 25 mg QAM ADELA Administration Furosemide 40 mg 07/14/24 17:00 07/14/24 17:14 Furosemide Inj 40 Mg/4 Ml Vial IV PUSH 40 mg BID ADELA Administration Glipizide 5 mg 07/14/24 09:00 07/14/24 09:01 Glipizide 5 Mg Tablet PO 5 mg DAILY ADELA Administration Glucagon 1 mg 07/12/24 17:24 Glucagon For Inj 1 Mg Vial IM PRN PRN Hypoglycemia Protocol Glucose 15 gm 07/12/24 17:24 Glucose Oral Gel 15 Gm Of Glucse In 37.5 Gm Tube PO PRN PRN Hypoglycemia Protocol Guaifenesin 600 mg 07/12/24 18:00 07/14/24 20:28 Guaifenesin 12 Hr 600 Mg Tabcr PO 600 mg Q12HR ADELA Administration Hydralazine HCl 25 mg 07/13/24 17:00 07/14/24 17:16 Hydralazine Hcl 25 Mg Tablet PO 25 mg BID ADELA Administration Azithromycin 500 mg in 250 mls @ 250 mls/hr 07/13/24 12:00 07/14/24 13:24 Zithromax IVPB 07/18/24 23:59 250 mls/hr Q24H ADELA Administration Dextrose 1,000 mls @ 100 mls/hr 07/12/24 17:24 Dextrose 5% 1,000 Ml IVPB PRN PRN Hypoglycemia Protocol Cefepime HCl 2 gm in 50 mls @ 100 mls/hr 07/12/24 20:00 07/14/24 20:28 Maxipime 2 Gm/Ns 50 Ml IVPB 100 mls/hr Q24H ADELA Administration Insulin Aspart 2 - 5 units 07/13/24 08:00 07/14/24 17:18 Insulin Aspart (*Bkc) 100 Units/Ml SUB-Q 5 units TIDWM ADELA Administration Protocol Insulin Aspart 1 - 2 units 07/12/24 21:00 07/14/24 22:00 Insulin Aspart (*Bkc) 100 Units/Ml SUB-Q 2 units HS ADELA Administration Protocol Isosorbide Mononitrate 20 mg 07/13/24 16:00 07/14/24 17:16 Isosorbide Mononitrate 20 Mg Tablet PO 20 mg 0900,1600 ADELA Administration Methylprednisolone Sodium Succinate 60 mg 07/14/24 12:00 07/15/24 06:51 Methylprednisolone Sod Succ 125 Mg Vial IV PUSH 60 mg Q6H ADELA Administration Metoprolol Succinate 25 mg 07/13/24 11:45 07/14/24 20:30 Metoprolol Succinate Ext Rel 25 Mg Tabcr PO 25 mg Q12HR ADELA Administration Oseltamivir Phosphate 30 mg 07/13/24 18:00 07/14/24 17:16 Oseltamivir Phosphate 30 Mg Capsule PO 07/16/24 18:01 30 mg Q24H ADELA Administration Pantoprazole Sodium 40 mg 07/13/24 11:40 07/14/24 09:00 Pantoprazole 40 Mg Tablet PO 40 mg DAILY ADELA Administration Sodium Chloride 1 spray 07/13/24 02:38 07/13/24 04:05 Saline 0.65% Maikol Soln 44 Ml Btl NASAL 1 spray Q6HR PRN Administration Congestion Tamsulosin HCl 0.4 mg 07/13/24 11:40 07/14/24 09:00 Tamsulosin Hcl 0.4 Mg Capsule PO 0.4 mg DAILY ADELA Administration Ticagrelor 90 mg 07/13/24 11:40 07/14/24 20:30 Ticagrelor 90 Mg Tablet PO 90 mg Q12HR ADELA Administration Vitamin D 2,000 units 07/13/24 21:00 07/14/24 20:29 Cholecalciferol 1,000 Units Tablet PO 2,000 units HS ADELA Administration Radiology Results: ITS Impressions Chest X-Ray 07/12/24 14:16 IMPRESSION: 1. Airspace opacities at the lung bases, consistent with atelectasis versus pneumonia. 2. Small pleural effusions. 3. Cardiomegaly. Labs Labs: Laboratory Results - last 24 hr 07/14/24 07/14/24 07/14/24 07:39 11:25 12:07 WBC 12.4 H RBC 3.69 L Hgb 10.6 L Hct 34.4 L MCV 93.2 MCH 28.7 MCHC 30.8 L RDW 15.8 H Plt Count 188 MPV 11.5 H Immature Gran % (Auto) 1.1 H Neut % (Auto) 87.5 H Lymph % (Auto) 2.3 L [place] % (Auto) 8.9 H Eos % (Auto) 0.0 Baso % (Auto) 0.2 Lymph # (Auto) 0.29 L [place] # (Auto) 1.1 H Eos # (Auto) 0.0 Baso # (Auto) 0.0 Abs Immat Gran (auto) 0.13 H Absolute Neuts (auto) 10.8 H Absolute Nucleated RBC 0.000 Nucleated RBC % 0.0 Platelet Estimate Adequate Anisocytosis 1+ [place] Cells 1+ Schistocytes None seen Sodium 132 L Potassium 4.4 Chloride 97 L Carbon Dioxide 20 L Anion Gap 15 H BUN 69 H D Creatinine 2.81 H Estim Creat Clear Calc 18 Estimated GFR 22 L Glucose 269 H POC Capillary Glucose 250 H 287 H Calcium 7.9 L Urine Color Urine Appearance Urine pH Ur Specific [place] Urine Protein Urine Glucose (UA) Urine Ketones Ur Blood (Man) Urine Nitrate Urine Bilirubin Urine Urobilinogen Ur Leukocyte Esterase Add Ur Microanalysis Urine RBC Urine WBC Ur Squamous Epith Cells Urine Bacteria Urine Casts Urine Mucus 07/14/24 07/14/24 07/14/24 14:19 16:39 21:44 WBC RBC Hgb Hct MCV MCH MCHC RDW Plt Count MPV Immature Gran % (Auto) Neut % (Auto) Lymph % (Auto) [place] % (Auto) Eos % (Auto) Baso % (Auto) Lymph # (Auto) [place] # (Auto) Eos # (Auto) Baso # (Auto) Abs Immat Gran (auto) Absolute Neuts (auto) Absolute Nucleated RBC Nucleated RBC % Platelet Estimate Anisocytosis Radha Cells Schistocytes Sodium Potassium Chloride Carbon Dioxide Anion Gap BUN Creatinine Estim Creat Clear Calc Estimated GFR Glucose POC Capillary Glucose 359 H 348 H Calcium Urine Color Yellow Urine Appearance Cloudy H Urine pH 5.0 Ur Specific [place] 1.016 Urine Protein 1+ H Urine Glucose (UA) 3+ H Urine Ketones Negative Ur Blood (Man) 2+ H Urine Nitrate Negative Urine Bilirubin Negative Urine Urobilinogen 0.2 Ur Leukocyte Esterase Trace H Add Ur Microanalysis Reviewed Urine RBC 11-20 H Urine WBC 6-10 H Ur Squamous Epith Cells None seen Urine Bacteria None seen Urine Casts 6-10 Urine Mucus Present 07/15/24 07:45 WBC RBC Hgb Hct MCV MCH MCHC RDW Plt Count MPV Immature Gran % (Auto) Neut % (Auto) Lymph % (Auto) [place] % (Auto) Eos % (Auto) Baso % (Auto) Lymph # (Auto) [place] # (Auto) Eos # (Auto) Baso # (Auto) Abs Immat Gran (auto) Absolute Neuts (auto) Absolute Nucleated RBC Nucleated RBC % Platelet Estimate Anisocytosis Radha Cells Schistocytes Sodium Potassium Chloride Carbon Dioxide Anion Gap BUN Creatinine Estim Creat Clear Calc Estimated GFR Glucose POC Capillary Glucose 349 H Calcium Urine Color Urine Appearance Urine pH Ur Specific [place] Urine Protein Urine Glucose (UA) Urine Ketones Ur Blood (Man) Urine Nitrate Urine Bilirubin Urine Urobilinogen Ur Leukocyte Esterase Add Ur Microanalysis Urine RBC Urine WBC Ur Squamous Epith Cells Urine Bacteria Urine Casts Urine Mucus
[2024-07-15 09:32] LABS: Hematocrit 30.6 % (42.0-52.0); Hemoglobin 9.6 g/dL (14.0-18.0); Immature Granulocyte Absolute 0.06 K/mm3 (0.00-0.031); Immature Granulocyte Percent A 0.7 % (0-0.5); Lymphocytes Absolute Auto 0.13 K/mm3 (0.9-3.2); Lymphocytes Percent Auto 1.6 % (18.3-44.2); Mean Corpuscular HGB Conc 31.4 g/dl (32-36); Mean Corpuscular Hemoglobin 29.1 pg (26-34); Mean Corpuscular Volume 92.7 fl (80-100); Monocytes Absolute Auto 0.3 K/mm3 (0.1-0.6); Monocytes Percent Auto 3.1 % (2.6-8.5); Neutrophils Absolute Auto 7.7 K/mm3 (1.3-6.7); Neutrophils Percent Auto 94.6 % (45.5-73.1); Platelet Count Result 153 k/mm3 (150-375); Red Cell Distribution Width 15.6 % (11.5-14.5); White Blood Count 8.2 K/mm3 (4.5-10.0)
[2024-07-15 09:45] LABS: Anion Gap 17 mmol/L (4-12); Blood Urea Nitrogen 80 mg/dL (9-20); Calcium 7.6 mg/dL (8.4-10.2); Carbon Dioxide 18 mmol/L (22-30); Chloride 94 mmol/L (98-107); Estimated CRCL calculation 18 ml/min; Estimated Glomerular Filt Rate 22; Glucose 420 mg/dL (65-110); Magnesium 2.1 mg/dL (1.6-2.3); Potassium 4.4 mmol/L (3.4-5.0); Sodium 129 mmol/L (137-145)
[2024-07-15] MEDS: TICAGRELOR 90 MG TABLET PO ×2 (10:23→20:42)
[2024-07-15] MEDS: amLODIPine BESYLATE 10 MG TABLET PO (10:24)
[2024-07-15] MEDS: guaiFENesin 12 HR 600 MG TABCR PO ×2 (10:24→20:42)
[2024-07-15] MEDS: METOPROLOL SUCCINATE EXT REL 25 MG TABCR PO ×2 (10:24→20:41)
[2024-07-15] MEDS: ATORVASTATIN 40 MG TABLET PO (10:24)
[2024-07-15] MEDS: PANTOPRAZOLE 40 MG TABLET PO (10:24)
[2024-07-15] MEDS: EMPAGLIFLOZIN 25 MG TABLET PO (10:24)
[2024-07-15] MEDS: ISOSORBIDE MONONITRATE 20 MG TABLET PO ×2 (10:24→17:41)
[2024-07-15] MEDS: hydrALAZINE HCL 25 MG TABLET PO ×2 (10:25→17:41)
[2024-07-15] MEDS: ASPIRIN 81 MG ENTERIC TABLET PO (10:25)
[2024-07-15] MEDS: glipiZIDE 5 MG TABLET PO (10:25)
[2024-07-15] MEDS: TAMSULOSIN HCL 0.4 MG CAPSULE PO (10:25)
[2024-07-15] MEDS: FUROSEMIDE INJ 40 MG/4 ML VIAL IV PUSH ×2 (10:25→17:42)
[2024-07-15] MEDS: INSULIN ASPART (*BKC) 100 UNITS/ML SUB-Q ×3 (10:25→21:25)
[2024-07-15 10:38] LABS: Anisocytosis 1+; Burr Cells 1+; Platelet Estimate Adequate (Adequate)
[2024-07-15 10:41] LABS: Schistocytes None Seen
[2024-07-15] MEDS: ALBUTEROL SULFATE (*SP) AEROSOL 1 PUFF 2 PUFF INHALATION (11:10)
[2024-07-15 12:04] LABS: Glucose Point of Care 452 mg/dl (65-105)
[2024-07-15] MEDS: AZITHROMYCIN 500 MG/NS 250 ML 500 MG/250 ML BAG 250 MG IVPB (13:27)
--- NOTE | 2024-07-15 15:55 | PC.NURSE ---
Reported blood sugar of [address] Kim. Order received to give patient total of 15 units insulin aspart for dinner.
[2024-07-15] MEDS: OSELTAMIVIR PHOSPHATE 30 MG CAPSULE PO (17:41)
[2024-07-15] MEDS: INSULIN ASPART (*BKC) 100 UNITS/ML 8 UNITS SUB-Q (17:42)
[2024-07-15] MEDS: INSULIN ASPART (*BKC) 100 UNITS/ML 7 UNITS SUB-Q (17:45)
[2024-07-15 17:53] LABS: Glucose Point of Care > 500 mg/dl (65-105)
[2024-07-15] MEDS: CHOLECALCIFEROL 1,000 UNITS TABLET 2000 UNITS PO (20:42)
[2024-07-15] MEDS: CEFEPIME 2 GM/NS 50 ML 2 GM/50 ML BAG IVPB (20:43)
[2024-07-15 20:44] LABS: Glucose Point of Care 322 mg/dl (65-105)
[2024-07-16] VITALS (29 sets, daily range): BP systolic 108–125; BP diastolic 47–73; PULSE 78–88; RESP 18–26; TEMP 36.3–36.6; O2SAT 92–98
[2024-07-16 05:04] LABS: Basophils Percent Auto 0.1 % (0.2-1.2); Hematocrit 28.9 % (42.0-52.0); Hemoglobin 9.4 g/dL (14.0-18.0); Immature Granulocyte Absolute 0.07 K/mm3 (0.00-0.031); Immature Granulocyte Percent A 0.6 % (0-0.5); Lymphocytes Absolute Auto 0.18 K/mm3 (0.9-3.2); Lymphocytes Percent Auto 1.6 % (18.3-44.2); Mean Corpuscular HGB Conc 32.5 g/dl (32-36); Mean Corpuscular Hemoglobin 29.3 pg (26-34); Monocytes Absolute Auto 0.4 K/mm3 (0.1-0.6); Monocytes Percent Auto 3.7 % (2.6-8.5); Neutrophils Absolute Auto 10.5 K/mm3 (1.3-6.7); Platelet Count Result 154 k/mm3 (150-375); Red Blood Count 3.21 M/mm3 (4.6-6.20); Red Cell Distribution Width 15.6 % (11.5-14.5); White Blood Count 11.2 K/mm3 (4.5-10.0)
[2024-07-16 05:18] LABS: Anion Gap 15 mmol/L (4-12); Blood Urea Nitrogen 84 mg/dL (9-20); Calcium 7.8 mg/dL (8.4-10.2); Carbon Dioxide 19 mmol/L (22-30); Chloride 95 mmol/L (98-107); Estimated CRCL calculation 17 ml/min; Estimated Glomerular Filt Rate 20; Glucose 232 mg/dL (65-110); Magnesium 2.2 mg/dL (1.6-2.3); Potassium 4.3 mmol/L (3.4-5.0); Sodium 129 mmol/L (137-145)
[2024-07-16] MEDS: methylPREDNISolone SOD SUCC 125 MG VIAL 60 MG IV PUSH (05:32)
[2024-07-16 07:26] LABS: Glucose Point of Care 229 mg/dl (65-105)
[2024-07-16] MEDS: ATORVASTATIN 40 MG TABLET PO (09:30)
[2024-07-16] MEDS: guaiFENesin 12 HR 600 MG TABCR PO ×2 (09:30→20:15)
[2024-07-16] MEDS: EMPAGLIFLOZIN 25 MG TABLET PO (09:30)
[2024-07-16] MEDS: hydrALAZINE HCL 25 MG TABLET PO ×2 (09:30→18:00)
[2024-07-16] MEDS: ASPIRIN 81 MG ENTERIC TABLET PO (09:30)
[2024-07-16] MEDS: METOPROLOL SUCCINATE EXT REL 25 MG TABCR PO ×2 (09:30→20:14)
[2024-07-16] MEDS: amLODIPine BESYLATE 10 MG TABLET PO (09:30)
[2024-07-16] MEDS: ISOSORBIDE MONONITRATE 20 MG TABLET PO ×2 (09:30→17:48)
[2024-07-16] MEDS: glipiZIDE 5 MG TABLET PO (09:30)
[2024-07-16] MEDS: TAMSULOSIN HCL 0.4 MG CAPSULE PO (09:31)
[2024-07-16] MEDS: INSULIN ASPART (*BKC) 100 UNITS/ML SUB-Q ×3 (09:31→17:51)
[2024-07-16] MEDS: TICAGRELOR 90 MG TABLET PO ×2 (09:31→20:15)
[2024-07-16] MEDS: FUROSEMIDE INJ 40 MG/4 ML VIAL IV PUSH ×2 (09:31→17:48)
[2024-07-16] MEDS: PANTOPRAZOLE 40 MG TABLET PO (09:31)
[2024-07-16] MEDS: INSULIN ASPART (*BKC) 100 UNITS/ML 7 UNITS SUB-Q ×2 (09:32→13:00)
[2024-07-16] MEDS: IPRATROPIUM 0.5 MG/ALBUTEROL SULFATE 2.5 MG AMPUL.NEB 3 ML INHALATION ×3 (09:43→19:37)
--- NOTE | 2024-07-16 10:22 | P.PNIM_ITS ---
Progress Note: A&P Assessment and Plan (1) Acute on chronic combined systolic and diastolic heart failure: Code(s): I50.43 - Acute on chronic combined systolic (congestive) and diastolic (congestive) heart failure Status: Acute (2) CHF exacerbation: Code(s): I50.9 - Heart failure, unspecified Status: Acute (3) Elevated troponin: Code(s): R79.89 - Other specified abnormal findings of blood chemistry Status: Acute (4) Diabetes mellitus: Qualifiers: Diabetes mellitus complication status: with other specified complication Diabetes mellitus cut off machine operator insulin use: without cut off machine operator use Diabetes mellitus type: type 2 Qualified Code(s): E11.69 - Type 2 diabetes mellitus with other specified complication Code(s): E11.9 - Type 2 diabetes mellitus without complications Status: Chronic (5) Protein-calorie malnutrition, mild: Code(s): E44.1 - Mild protein-calorie malnutrition Status: Acute (6) [id number] kidney injury: Code(s): N17.9 - Acute kidney failure, unspecified; N18.9 - Chronic kidney disease, unspecified Status: Acute (7) Influenza: Code(s): J11.1 - Influenza due to unidentified influenza virus with other respiratory manifestations Status: Acute (8) Acute and chronic respiratory failure with hypercapnia: Code(s): J96.22 - Acute and chronic respiratory failure with hypercapnia Status: Acute (9) COPD exacerbation: Code(s): J44.1 - Chronic obstructive pulmonary disease with (acute) exacerbation Status: Acute Plan (1) Pneumonia: Qualifiers: Laterality: bilateral Lung location: lower lobe of lung Pneumonia type: due to unspecified organism Qualified Code(s): J18.9 - Pneumonia, unspecified organism Code(s): J18.9 - Pneumonia, unspecified organism Status: Acute Assessment and Plan: - did not meet SIRS criteria, however lactic elevated at 2.4. Blood cultures obtained on 07/12, follow. Plan for 2L bolus. trend lactic down. - CXR: 1. Airspace opacities at the lung bases, consistent with atelectasis versus pneumonia. 2. Small pleural effusions. 3. Cardiomegaly. Possible community-acquired pneumonia due to viral infection and better infection Started on ceftriaxone and azithromycin on to 6, exchanged to cefepime, azithromycin, and vancomycin on 07/12 and Tamiflu MRSA negative Continue cefepime and azithromycin CT: . Moderate to large bilateral pleural effusions with bibasilar atelectatic change and probable mild pulmonary edema.Suspected underlying mild emphysema. Consult procedure tech for evaluation treatment (2) Influenza: Code(s): J11.1 - Influenza due to unidentified influenza virus with other respiratory manifestations Status: Acute Assessment and Plan: tested positive for influenza A on 07/11 - CXR c/f PNA - Tamiflu 75 mg BID, symptoms worsened/developed cough in the last 2 days Acute on chronic obstructive pulmonary disease: Qualifiers: COPD type: unspecified COPD Qualified Code(s): J44.9 - Chronic obstructive pulmonary disease, unspecified Code(s): J44.9 - Chronic obstructive pulmonary disease, unspecified Status: Acute Assessment and Plan: COPD exacerbation due to pneumonia and influenza effect Switch from prednisone 40 p.o. daily to methylprednisone IV (4) Elevated troponin: Code(s): R79.89 - Other specified abnormal findings of blood chemistry Status: Acute Assessment and Plan: - EKG, initial: Sinus rhythm, rate 82, left atrial enlargement, ST-T-wave abnormality in diffuse leads consider ischemia, baseline artifact. When compared to EKG done on 06/25/2024, there are no significant changes. - Troponin: 0.052 (previously 0.035 on 07/03/2024), 3 and 6 hour ordered - ASA 324 given, continue Brilinta 90 mg q.12 hours p.o. -echo, previous (02/2024): He systolic function moderately reduced, estimated EF 40-45%, grade 3 diastolic dysfunction. See report for details. - cardiac catheterization, previous, 06/13/23: Dr. Pablo at [facility] - [facility] of right common iliac artery. LM 70-80%, LAD diffuse disease with severe stenosis in apical segment, LCx prox 80%, RCA with diffuse disease with severe stenosis in mid PDA; PCI to prox LCx and PCI to LM. 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 IV push Chronic kidney disease, stage 4 (severe): Code(s): N18.4 - Chronic kidney disease, stage 4 (severe) Status: Chronic Assessment and Plan: - creatinine 2.91 and GFR 21, previously 2.57 and GFR 24 on Patient received fluid resuscitation 2 L bolus -> 125 mL/hr x1L. monitor bruno ation, hx of HF. Creatinine on the base Type 2 diabetes mellitus: Qualifiers: Diabetes mellitus cut off machine operator insulin use: without cut off machine operator use Diabetes mellitus complication status: with kidney complications Diabetes mellitus complication detail: with chronic kidney disease Chronic kidney disease stage: stage 4 (severe) Qualified Code(s): E11.22 - Type 2 diabetes mellitus with diabetic chronic kidney disease; N18.4 - Chronic kidney disease, stage 4 (severe) Code(s): E11.9 - Type 2 diabetes mellitus without complications Status: Chronic Assessment and Plan: - hypoglycemia protocol - POC blood glucose ACHS - home medication: Hold Jardiance, glipizide. A1C 7.5% on 06/25/2024 Uncontrolled glucose level because of steroid Titrate insulin for glucose control Hypertension: Qualifiers: Hypertension type: secondary to other renal disorders Qualified Code (s): I15.1 - Hypertension secondary to other renal disorders Code(s): I10 - Essential (primary) hypertension Status: Chronic Assessment and Plan: Blood pressure is controlled Continue metoprolol, Imdur, hydralazine, Lasix, amlodipine Patient still has significant dyspnea and cough, continue inpatient treatment Diet: Heart healthy GI Prophylaxis: Not currently indicated DVT Prophylaxis: SCDs Lines: Peripheral Consult Code Status: DNR Subjective Date/time seen: 07/16/24 10:22 Interval history: Patient is afebrile, blood pressure stable, patient is on 5 L oxygen. Patient feels improving slowly. Patient still has significant dyspnea worse with mineralization. Patient denies chest pain but feels chest tightness with cough. Patient denies abdomen pain nausea vomiting diarrhea Exam Narrative: GENERAL: Ill-appearing, in no acute distress. Well-nourished. - EYES: EOMI. Anicteric. - HENT: Moist mucous membranes. - LUNGS: Crackles bilateral base, but i mproving. Tachypnea, scattered wheezing, distant breath sounds - CARDIOVASCULAR: Regular rate and rhyth m. No murmur. No JVD. - ABDOMEN: Soft, non-tender and non-dist ended. No palpable masses. - EXTREMITIES: No edema. Peripheral puls es 2+. Non-tender. - NEUROLOGIC: No focal neurological defi cits. CN II-XII grossly intact. General weakness - PSYCHIATRIC: Awake, Alert and oriented x 3. Appropriate mood and affect. - SKIN: No rashes or lesions. Warm. - LYMPH: No cervical lymphadenopathy. Objective Data Vital Signs Vital Signs: Vital Signs - 24 hr 07/15/24 10:24 07/15/24 11:10 07/15/24 12:00 Temperature 97.7 F Pulse Rate 83 84 85 Respiratory Rate 24 H 18 Blood Pressure 121/48 L Pulse Oximetry 98 Oxygen Delivery Oxygen Flow Rate 07/15/24 12:00 07/15/24 14:00 07/15/24 14:40 Temperature Pulse Rate 85 85 94 Respiratory Rate 24 H Blood Pressure Pulse Oximetry Oxygen Delivery Oxygen Flow Rate 07/15/24 14:47 07/15/24 16:00 07/15/24 16:52 Temperature 97.8 F Pulse Rate 82 84 85 Respiratory Rate 24 H 18 Blood Pressure 113/51 L Pulse Oximetry 96 Oxygen Delivery Oxygen Flow Rate 07/15/24 18:00 07/15/24 19:50 07/15/24 20:00 Temperature 98.9 F Pulse Rate 84 84 Respiratory Rate 22 H Blood Pressure 121/48 L Pulse Oximetry 95 95 Oxygen Delivery Nasal Cannula Oxygen Flow Rate 4 07/15/24 20:00 07/15/24 20:41 07/15/24 21:30 Temperature Pulse Rate 83 85 Respiratory Rate Blood Pressure Pulse Oximetry 94 Oxygen Delivery Nasal Cannula Oxygen Flow Rate 4 07/15/24 21:31 07/15/24 21:41 07/15/24 22:00 Temperature Pulse Rate 81 85 87 Respiratory Rate 22 H 20 Blood Pressure Pulse Oximetry Oxygen Delivery Oxygen Flow Rate 07/16/24 00:00 07/16/24 00:00 07/16/24 00:00 Temperature Pulse Rate 85 85 Respiratory Rate 22 H Blood Pressure 113/73 Pulse Oximetry 95 98 Oxygen Delivery Nasal Cannula Oxygen Flow Rate 4 07/16/24 02:19 07/16/24 02:20 07/16/24 02:30 Temperature Pulse Rate 81 82 80 Respiratory Rate 18 18 Blood Pressure Pulse Oximetry Oxygen Delivery Oxygen Flow Rate 07/16/24 03:50 07/16/24 04:00 07/16/24 04:00 Temperature 97.5 F L Pulse Rate 84 83 Respiratory Rate 22 H Blood Pressure 115/58 L Pulse Oximetry 94 95 Oxygen Delivery Nasal Cannula Oxygen Flow Rate 4 07/16/24 06:00 07/16/24 07:59 07/16/24 09:30 Temperature 97.8 F Pulse Rate 83 83 82 Respiratory Rate 22 H Blood Pressure 109/48 L Pulse Oximetry 92 Oxygen Delivery Oxygen Flow Rate 07/16/24 09:44 07/16/24 09:44 07/16/24 09:54 Temperature Pulse Rate 83 85 Respiratory Rate 18 18 Blood Pressure Pulse Oximetry 94 Oxygen Delivery Nasal Cannula Oxygen Flow Rate 4 Intake/Output Intake/Output: Intake & Output 07/13/24 07/14/24 07/15/24 07/16/24 23:59 23:59 23:59 23:59 Intake Total 2800 1450 1480 827 Output Total 1175 1251 1500 650 Balance 1625 199 -20 177 Meds/Results Medications: Active Medications Generic Name Dose Route Start Last Admin Trade Name Freq PRN Reason Stop Dose Admin Acetaminophen 650 mg 07/12/24 16:33 07/14/24 20:29 Acetaminophen 325 Mg Tablet PO 650 mg Q4H PRN Administration Mild Pain (1-3) or Fever Albuterol 2 puff 07/13/24 11:30 07/15/24 11:10 Albuterol Sulfate (*Sp) Aerosol 1 Puff INHALATION 2 puff TID PRN Administration Shortness Of Breath Or Wheezing Albuterol/Ipratropium 3 ml 07/12/24 20:00 07/16/24 09:43 Ipratropium 0.5 Mg/Albuterol Sulfate 2.5 Mg Ampul.Neb 3 Ml INHALATION 3 ml Q6HRT TOM Administration Amlodipine Besylate 10 mg 07/13/24 11:40 07/16/24 09:30 Amlodipine Besylate 10 Mg Tablet PO 10 mg DAILY TOM Administration Aspirin 81 mg 07/13/24 11:40 07/16/24 09:30 Aspirin 81 Mg Enteric Tablet PO 81 mg DAILY TOM Administration Atorvastatin Calcium 40 mg 07/13/24 11:40 07/16/24 09:30 Atorvastatin 40 Mg Tablet PO 40 mg DAILY TOM Administration Benzocaine 1 lozenge 07/12/24 17:23 07/13/24 20:31 Benzocaine/Menthol (*Bkc) 18 Ea Lozenge PO 1 lozenge PRN PRN Administration Sore Throat Benzonatate 100 mg 07/12/24 17:23 07/14/24 20:31 Benzonatate 100 Mg Capsule PO 100 mg TID PRN Administration Cough Clonazepam 0.5 mg 07/13/24 11:30 07/14/24 20:29 Clonazepam (*Crx) 0.5 Mg Tablet PO 0.5 mg Q12H PRN Administration anxiety Dextrose 12.5 gm 07/12/24 17:24 Dextrose 50% 25 Gm/50 Ml Syringe IV PUSH PRN PRN Hypoglycemia Protocol Empagliflozin 25 mg 07/13/24 11:40 07/16/24 09:30 Empagliflozin 25 Mg Tablet PO 25 mg QAM TOM Administration Furosemide 40 mg 07/14/24 17:00 07/16/24 09:31 Furosemide Inj 40 Mg/4 Ml Vial IV PUSH 40 mg BID TOM Administration Glipizide 5 mg 07/14/24 09:00 07/16/24 09:30 Glipizide 5 Mg Tablet PO 5 mg DAILY TOM Administration Glucagon 1 mg 07/12/24 17:24 Glucagon For Inj 1 Mg Vial IM PRN PRN Hypoglycemia Protocol Glucose 15 gm 07/12/24 17:24 Glucose Oral Gel 15 Gm Of Glucse In 37.5 Gm Tube PO PRN PRN Hypoglycemia Protocol Guaifenesin 600 mg 07/12/24 18:00 07/16/24 09:30 Guaifenesin 12 Hr 600 Mg Tabcr PO 600 mg Q12HR TOM Administration Hydralazine HCl 25 mg 07/13/24 17:00 07/16/24 09:30 Hydralazine Hcl 25 Mg Tablet PO 25 mg BID TOM Administration Azithromycin 500 mg in 250 mls @ 250 mls/hr 07/13/24 12:00 07/15/24 13:27 Zithromax IVPB 07/18/24 23:59 250 mls/hr Q24H TOM Administration Dextrose 1,000 mls @ 100 mls/hr 07/12/24 17:24 Dextrose 5% 1,000 Ml IVPB PRN PRN Hypoglycemia Protocol Cefepime HCl 2 gm in 50 mls @ 100 mls/hr 07/12/24 20:00 07/15/24 20:43 Maxipime 2 Gm/Ns 50 Ml IVPB 100 mls/hr Q24H TOM Administration Insulin Aspart 2 - 5 units 07/13/24 08:00 07/16/24 09:31 Insulin Aspart (*Bkc) 100 Units/Ml SUB-Q 2 units TIDWM TOM Administration Protocol Insulin Aspart 1 - 2 units 07/12/24 21:00 07/15/24 21:25 Insulin Aspart (*Bkc) 100 Units/Ml SUB-Q 2 units HS TOM Administration Protocol Insulin Aspart 7 units 07/15/24 12:57 07/16/24 09:32 Insulin Aspart (*Bkc) 100 Units/Ml 0.1 units/kg (7 units) 7 units SUB-Q Administration TIDWM TOM Isosorbide Mononitrate 20 mg 07/13/24 16:00 07/16/24 09:30 Isosorbide Mononitrate 20 Mg Tablet PO 20 mg 0900,1600 TOM Administration Methylprednisolone Sodium Succinate 60 mg 07/14/24 12:00 07/16/24 05:32 Methylprednisolone Sod Succ 125 Mg Vial IV PUSH 60 mg Q6H TOM Administration Metoprolol Succinate 25 mg 07/13/24 11:45 07/16/24 09:30 Metoprolol Succinate Ext Rel 25 Mg Tabcr PO 25 mg Q12HR TOM Administration Oseltamivir Phosphate 30 mg 07/13/24 18:00 07/15/24 17:41 Oseltamivir Phosphate 30 Mg Capsule PO 07/16/24 18:01 30 mg Q24H TOM Administration Pantoprazole Sodium 40 mg 07/13/24 11:40 07/16/24 09:31 Pantoprazole 40 Mg Tablet PO 40 mg DAILY TOM Administration Sodium Chloride 1 spray 07/13/24 02:38 07/13/24 04:05 Saline 0.65% Maikol Soln 44 Ml Btl NASAL 1 spray Q6HR PRN Administration Congestion Tamsulosin HCl 0.4 mg 07/13/24 11:40 07/16/24 09:31 Tamsulosin Hcl 0.4 Mg Capsule PO 0.4 mg DAILY TOM Administration Ticagrelor 90 mg 07/13/24 11:40 07/16/24 09:31 Ticagrelor 90 Mg Tablet PO 90 mg Q12HR TOM Administration Vitamin D 2,000 units 07/13/24 21:00 07/15/24 20:42 Cholecalciferol 1,000 Units Tablet PO 2,000 units HS TOM Administration Radiology Results: ITS Impressions Chest X-Ray 07/12/24 14:16 IMPRESSION: 1. Airspace opacities at the lung bases, consistent with atelectasis versus pneumonia. 2. Small pleural effusions. 3. Cardiomegaly. Chest CT 07/16/24 07:14 Impression: Moderate to large bilateral pleural effusions with bibasilar atelectatic change and probable mild pulmonary edema. Suspected underlying mild emphysema. Small amount of upper abdominal ascites. Mild mediastinal lymphadenopathy, nonspecific, unchanged. Labs Labs: Laboratory Results - last 24 hr 07/15/24 07/15/24 07/15/24 09:23 11:47 15:43 WBC 8.2 RBC 3.30 L Hgb 9.6 L Hct 30.6 L MCV 92.7 MCH 29.1 MCHC 31.4 L RDW 15.6 H Plt Count 153 MPV 12.0 H Immature Gran % (Auto) 0.7 H Neut % (Auto) 94.6 H Lymph % (Auto) 1.6 L [place] % (Auto) 3.1 Eos % (Auto) 0.0 Baso % (Auto) 0.0 L Lymph # (Auto) 0.13 L [place] # (Auto) 0.3 Eos # (Auto) 0.0 Baso # (Auto) 0.0 Abs Immat Gran (auto) 0.06 H Absolute Neuts (auto) 7.7 H Absolute Nucleated RBC 0.000 Nucleated RBC % 0.0 Platelet Estimate Adequate Anisocytosis 1+ [place] Cells 1+ Schistocytes None seen Sodium Potassium Chloride Carbon Dioxide Anion Gap BUN Creatinine Estim Creat Clear Calc Estimated GFR Glucose POC Capillary Glucose 452 H > 500 H* Calcium Magnesium 07/15/24 07/16/24 07/16/24 20:32 04:32 07:22 WBC 11.2 H RBC 3.21 L Hgb 9.4 L Hct 28.9 L MCV 90.0 MCH 29.3 MCHC 32.5 RDW 15.6 H Plt Count 154 MPV 12.0 H Immature Gran % (Auto) 0.6 H Neut % (Auto) 94.0 H Lymph % (Auto) 1.6 L [place] % (Auto) 3.7 Eos % (Auto) 0.0 Baso % (Auto) 0.1 L Lymph # (Auto) 0.18 L [place] # (Auto) 0.4 Eos # (Auto) 0.0 Baso # (Auto) 0.0 Abs Immat Gran (auto) 0.07 H Absolute Neuts (auto) 10.5 H Absolute Nucleated RBC 0.000 Nucleated RBC % 0.0 Platelet Estimate Anisocytosis [place] Cells Schistocytes Sodium 129 L Potassium 4.3 Chloride 95 L Carbon Dioxide 19 L Anion Gap 15 H BUN 84 H Creatinine 2.98 H Estim Creat Clear Calc 17 Estimated GFR 20 L Glucose 232 H POC Capillary Glucose 322 H 229 H Calcium 7.8 L Magnesium 2.2
[2024-07-16 11:12] LABS: Glucose Point of Care 310 mg/dl (65-105)
--- NOTE | 2024-07-16 12:15 | P.CONPL_ITS ---
Assessment and Plan Assessment and plan (1) Influenza: Code(s): J11.1 - Influenza due to unidentified influenza virus with other respiratory manifestations Status: Acute Assessment and Plan: Patient tested influenza positive on 07/12/2024. 07/16/2023: Currently the patient says he is breathing better than when he arrived to the hospital. He has 20% back to his normal. He has minimal cough with no phlegm and no hemoptysis. He has dyspnea on exertion and has not done any walking in the room. He is afebrile. White blood cell count 11.2, creatinine 2.98, BUN 84. His weight today is 66 kg with an admission weight of 55.9. He diuresed 20 mL yesterday and cumulative he is +4.[address] scan of the chest which shows large bilateral effusions right greater than left, adjacent compressive atelectasis, no focal consolidations, small amount of ascites. Plan: Continue Tamiflu at 30 mg Q 24 hours. today is day 5. Given his severe disease would recommend a total of 10 days of Tamiflu. Systemic steroids have been discontinued. He is being treated empirically for bacterial infection with azithromycin day 5 of 7 and cefepime day 5 of 7. Blood cultures are negative. Discussed with Dr. Kim, will follow with you. (2) Congestive heart failure: Qualifiers: Heart failure chronicity: acute Heart failure type: unspecified Q ualified Code(s): I50.9 - Heart failure, unspecified Code(s): I50.9 - Heart failure, unspecified Status: Acute Assessment and Plan: Patient with a history of coronary artery disease status post PCI circumflex and left main on ticagrelor, congestive heart failure with an LVEF of 40-45%, grade 3 diastolic dysfunction, aortic stenosis with a valve area of 1.1, mean gradient 5 on echocardiogram from 02/20/2024. Patient has chronic renal insufficiency with baseline creatinine in June of 2.2-2.3. Admitted now with a creatinine of 2.91 and with attempted diuresis with IV Lasix his creatinine today is 2.98. CT scan today shows bilateral large pleural effusions right greater than left, congestion and small amount of ascites. BNP has remained greater than 30,000 since 02/28/2024, 06/19/2024, 07/02/2024 and 07/12/2024. Repeat today is greater than 30,000. Plan: patient remains fluid overloaded. Diuresis per hospitalist. patient would benefit from an ultrasound-guided thoracentesis on the right to help his breathing mechanics and hypoxemia. Wait time for brilenta is 5 days. Patient received a dose on 07/16 at 9:31 a.m.. Discussed with hospitalist who will determine if this medicine can be stopped safely. (3) COPD (chronic obstructive pulmonary disease): Qualifiers: COPD type: unspecified COPD Qualified Code(s): J44.9 - Chronic obstructive pulmonary disease, unspecified Code(s): J44.9 - Chronic obstructive pulmonary disease, unspecified Status: Acute Assessment and Plan: regarding his COPD, On 12/13/2023: Patient is a 23 pack year history of tobacco use quit in 2022.? He was exposed to secondhand smoke from his father and from his 1st from 1966 and 1983 and his 2nd from [id number].? PFTs from pulmonary outpatient visit note on 07/27/2023 demonstrate an FEV1 of 40% predicted.? Total lung capacity 57% predicted and a DLCO of 34% predicted.?More recent PFTs on 10/13/2023 with a normal FEV1 at 71%, ratio 64%, no bronchodilator response, normal lung volumes and moderately decreased DLCO when adjusted for alveolar volume.? There was significant increase in the FVC, FEV1, total lung capacity, residual volume and diffusing capacity when compared to 07/27/2023. Room air sats were 95%.?? Currently has no activity limitations due to shortness of breath but he does have limitations due to leg pain.? He has peripheral vascular disease.?? He denies cough or chronic phlegm production.?? Previous note says he has an alpha 1 anti trypsin level of 248 on 06/18/2019. I prescribe Stiolto Respimat. previous overnight oximetry on room air on 10/06/2023 with hypoxemia and I prescribed 2 L which was never arranged and I reordered this. I recommended vaccines including influenza, COVID and RSV and at this time he was unwilling. Patient is on 2 L nasal cannula. ABG on 06/19/2024 7.48/36/71. VBG on 07/02/2024 7.36/48/52. No evidence of prior hypercarbic respiratory failure. 07/16/24: Currently the patient has influenza pneumonia. He has been treated for COPD exacerbation with bronchodilators and steroids. Currently patient is on 4 L nasal cannula saturations 96%. Plan: I do not feel there is an active COPD exacerbation at this time. I have discontinue the steroids as he has influenza pneumonia. Continue DuoNebs q.6 hours. Goal saturation 90-94%, Wean oxygen accordingly.. History of Present Illness History of Present Illness Consult date: 07/16/24 Chief complaint: Influenza/Pneumonia/Elevated Troponin Narrative: 07/16/2024: This is a new pulmonary consult for influenza pneumonia with hypoxemic respiratory failure. 79-year-old with a history of coronary artery disease: [facility] 06/13/[address] 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 LM 70-80%, LAD diffuse disease with severe stenosis in apical segment, LCx prox 80%, RCA with diffuse disease with severe stenosis in mid PDA; PCI to prox LCx and PCI to LM, congestive heart failure with decreased LVEF and diastolic dysfunction, aortic stenosis, GERD, hyperlipidemia, DVT, diabetes, hypertension, renal artery stenosis, and COPD.. 07/16/2024: This is a new pulmonary consult for influenza a and respiratory failure. Patient followed in the Pulmonary Clinic for COPD and last seen on 12/13/2023. Patient was a no-show on 07/02/2024 Patient carries a history of COPD with most recent PFTs? with most recent PFTs on 10/13/2023 consistent with small airways disease.? regarding his COPD, On 12/13/2023: Patient is a 23 pack year history of tobacco use quit in 2022.? He was exposed to secondhand smoke from his father and from his 1st from 1966 and 1983 and his 2nd from [id number].? PFTs from pulmonary outpatient visit note on 07/27/2023 demonstrate an FEV1 of 40% predicted.? Total lung capacity 57% predicted and a DLCO of 34% predicted.?More recent PFTs on 10/13/2023 with a normal FEV1 at 71%, ratio 64%, no bronchodilator response, normal lung volumes and moderately decreased DLCO when adjusted for alveolar volume.? There was significant increase in the FVC, FEV1, total lung capacity, residual volume and diffusing capacity when compared to 07/27/2023. Room air sats were 95%.?? Currently has no activity limitations due to shortness of breath but he does have limitations due to leg pain.? He has peripheral vascular disease.?? He denies cough or chronic phlegm production.?? Previous note says he has an alpha 1 anti trypsin level of 248 on 06/18/2019. I prescribe Stiolto Respimat. previous overnight oximetry on room air on 10/06/2023 with hypoxemia and I prescribed 2 L which was never arranged and I reordered this. I recommended vaccines including influenza, COVID and RSV and at this time he was unwilling. Patient is on 2 L nasal cannula. 06/19/2024 through 06/24/2024:? Admitted with 2 weeks worsening dyspnea on exertion, orthopnea runny nose and nonproductive cough. ?BNP greater than 30,000. Required 8 L. CTA negative for pulmonary embolism with bibasilar atelectasis versus pneumonia and large bilateral pleural effusions.? He was treated with IV Lasix, bronchodilators, systemic steroids, ceftriaxone and azithromycin.? Weight decreased from 55.7 kg to 51.4 kg.? Discharged on room air, Lasix 40 a day (increased from 20 Q day), albuterol p.r.n. admission weight 55.7 kg. Discharge weight 51.4 kg. 07/03/24 through 07/03/2024: Admitted to [facility] with shortness of breath. BNP greater than 30,000, VBG 7.36/48. patient treated with BiPAP, steroids, DuoNebs, and IV Lasix. Admission weight 58 kg. Discharge weight 58.3 kg. Discharged on Lasix 80 mg a day, cefdinir 300, doxycycline 100 albuterol nebulizer and inhaler p.r.n. 07/12/2024: Patient presented to the emergency department with weakness and cough. He had worsening shortness of breath for the last few days, cough x2 days, weakness and bilateral swelling of the lower extremities. Blood pressure 127/53, heart rate 83, respirations 19, on 2 L nasal cannula saturations 95%. He had no wheezing. White blood cell count 11.0, eosinophils 0.0, creatinine 2.91, BUN 61, serum bicarbonate 23, BNP greater than 30,000, influenza a RT PCR positive. Patient started on Tamiflu, ceftriaxone, azithromycin and vancomycin. he was given prednisone 40 mg on 07/13 and 07/14. patient was changed to Solu-Medrol on 07/14/2023. 07/16/2023: Currently the patient says he is breathing better than when he arrived to the hospital. He has 20% back to his normal. He has minimal cough with no phlegm and no hemoptysis. He has dyspnea on exertion and has not done any walking in the room. He is afebrile. White blood cell count 11.2, creatinine 2.98, BUN 84. His weight today is 66 kg with an admission weight of 55.9. He diuresed 20 mL yesterday and cumulative he is +4.[address] scan of the chest which shows large bilateral effusions right greater than left, adjacent compressive atelectasis, no focal consolidations, small amount of ascites. DATA: 07/16/24: CT Scan of the Chest without Contrast: Clinical Indication: Shortness of breath Technique: Contiguous sections were acquired throughout the chest without intravenous contrast. Dose reduction technique was used on this scan by utilizing automated exposure control and iterative reconstruction technique. The dose-length product (DLP) was 286.97 mGy-cm. COMPARISON: 06/19/2024 Findings: Multiple bilateral enlarged mediastinal lymph nodes are similar to prior exam. There are extensive atherosclerotic calcifications of the aorta and coronary arteries. No pericardial effusion. Moderate to large bilateral pleural effusions are similar to prior exam, with bibasilar atelectatic change. There is mild emphysema and probable mild interstitial pulmonary edema. Images through the upper abdomen reveal small amount of upper abdominal ascites. Impression: Moderate to large bilateral pleural effusions with bibasilar atelectatic change and probable mild pulmonary edema. Suspected underlying mild emphysema. Small amount of upper abdominal ascites. Mild mediastinal lymphadenopathy, nonspecific, unchanged. 02/20/2024: Summary 1. Complete two-dimensional, color flow and Doppler transthoracic echocardiogram is performed. 2. Left ventricular chamber dimension is normal. 3. Left ventricular systolic function is moderately reduced, estimated at 40-45%. 4. There is mild concentric increased left ventricular wall thickness. 5. The left ventricular diastolic function is grade III diastolic dysfunction. 6. E/e' 38 is significantly elevated. 7. Left atrial chamber dimension is moderately enlarged. 8. There is moderate aortic valve sclerosis. 9. There is mild to moderate aortic valve stenosis with a peak velocity of 145 cm/s, mean gradient of 5 mmHg, and aortic valve area of 1.1 cm2. 10. The mitral valve has mildly calcified annulus. 11. There is mild mitral valve regurgitation. 12. There is mild tricuspid valve regurgitation. 13. Mild pulmonary hypertension, estimated pulmonary arterial systolic pressure is 43 mmHg. 14. There is trivial pericardial effusion. Right Ventricle Right ventricular chamber dimension is normal. Right ventricular systolic function is normal. Left Atria Left atrial chamber dimension is moderately enlarged. Right Atria Right atrial chamber dimension is normal. 12/19/2023: Overnight oximetry on room air. Recording duration 8 hours and 25 minutes. Basal saturation 94%. High saturation 99%. Low saturation 77%. Time with saturation less than or equal to 88% was 25 minutes and 11 seconds. Oxygen desaturation index 37.6. I will prescribe 2 L nasal cannula and repeat overnight oximetry on 2 L nasal cannula. 10/13/2023: This is a pulmonary function test with pre and post-bronchodilator spirometry, plethysmography and diffusing capacity. The test was performed and results interpreted in accordance with the 2019 and 2005 ATS/ERS Task Force guidelines respectively using the Global Lung Function Initiative-2012 reference equations. Patient demonstrated good effort and cooperation. Reproducibility criteria were met. The quality of the pre bronchodilator spirometry maneuver was Grade A and post bronchodilator spirometry maneuver was Grade A. Findings: Spirometry: There is decreased maximal expiratory airflow at all lung volumes. The pre bronchodilator FVC is 2.78 L, 84% predicted. The pre bronchodilator FEV1 is 1.78 L, 71% predicted. The pre bronchodilator FEV1: FVC ratio 64%. The post bronchodilator FVC is 2.86 L, representing a 3% increase. The post bronchodilator FEV1 is 1.89 L, representing a 6% increase. The post bronchodilator FEV1: FVC ratio 66%. Plethysmography: The total lung capacity is 6.18 L, 103% predicted. The functional residual capacity is 2.27 L, 71% predicted. The residual volume is 2.25 L, 96% predicted. The slow vital capacity is 3.94 L. Diffusing capacity: The diffusing capacity unadjusted for hemoglobin and carboxyhemoglobin is 10.3, 46% predicted. The diffusing capacity adjusted for alveolar volume is 2.31, 58% predicted. Impression: The slow vital capacity is greater than forced vital capacity with a mildly concave expiratory tracing and a low FEV1: FVC ratio with a normal FEV1. This is suggestive of small airways disease. There is no significant improvement after inhaling a single dose of albuterol. The lung volumes are normal. The diffusing capacity unadjusted for hemoglobin and carboxyhemoglobin is moderately decreased and remains moderately decreased when adjusted for alveolar volume. In comparison to PFTs from 07/27/2023 the pre bronchodilator FVC has increased from 2.00 L to 2.78 L. The pre bronchodilator FEV1 has increased from 1.02 L to 1.78 L. the total lung capacity has increased from 3.07 L to 6.18 L. The residual volume has increased from 1.36 L to 2.25 L. The functional residual capacity is unchanged from 1.98 L to 2.27 L. The diffusing capacity has increased from 8.4 to 10.3. 10/13/2023: This is a 6 minute walk test. The test was performed and interpreted in accordance with the 2014 ERS/ATS task force guidelines. Findings: The patient's resting room air oxygen saturation measured by pulse oximetry was 98% and heart rate was 76 bpm. Patient ambulated for 244 meters and oxygen saturation remained 96 to 98%. Heart rate at the end of the study was 92 bpm. The patient did not qualify for supplemental oxygen at rest or with ambulation. 10/13/2023: Rest room air blood gas with a pH of 7.49, PaCO2 32, PaO2 103. This represents a uncompensated respiratory alkalosis with normal PaO2. collectively this demonstrates small airways disease with significant improvement from 07/27/2023. There is no need for supplemental oxygen. 10/06/2023: Overnight oximetry on room air: Recording duration 3 hours and 34 minutes. Baseline saturation 93%. High saturation 99%. Low saturation 82%. Time with saturation less than or equal to 88% was 14 minutes and 30 seconds. Oxygen desaturation index is 39.7. I will prescribe 2 L nasal cannula at night and repeat an overnight oximetry on 2 L. 10/17/2023: Our staff spoke with patient, refused oxygen at this time. 07/27/2023: PFTs from shank threader Dr. Plata: Spirometry: Pre bronchodilator FVC 2.00 L, 59% predicted. FEV1 1.02 L, 40% predicted. pre bronchodilator FEV1: FVC ratio 51%. Lung volumes: TLC 3.07 L, 57% predicted, residual volume 1.36 L, 56% predicted. functional residual capacity 1.98 L, 57% predicted. Diffusing capacity 8.4, 34% predicted. 06/11/2023; Portable chest x-ray Comparison: 05/13/2023 Clinical History: SOB Findings:? Small bilateral pleural effusions are present. There is extensive haziness in the lungs, with central pulmonary venous congestive change.? Cardiomediastinal silhouette is stable. Bones and soft tissues are unremarkable. ? Impression: ?Small bilateral pleural effusions with probable mild pulmonary edema and central congestive change. Questionable underlying COPD or other chronic interstitial disease. 05/19/2023: CT scan of the chest without contrast report and image in from [facility] ED reason for study: A heart catheterization was performed on 05/18/2023 which showed multi-vessel disease and left main disease so CT surgery was consulted for CABG evaluation. Preop CABG looking at the a order for any calcification. Comparison none. Findings: The sensitivity for detection of solid visceral lesions is diminished without the use of intravenous contrast. Lungs: A small amount of mucus and debris seen within the trachea. Trace pulmonary edema. Small fissural lymph node in the right middle lobe measuring 5 mm. Pleural: Small right pleural effusion. Mediastinum -barrie: No identified masses or abnormal nodes. Impression: Severe coronary artery calcifications. Trace pulmonary edema. Severe stenosis of the SMA. 05/09/2023: Echo Summary ? 1. Definity contrast used to improve exam quality. ? 2. Mild global left ventricular systolic dysfunction ejection fraction 40-45%. ? 3. Moderate concentric left ventricular hypertrophy. ? 4. Sclerotic but nonstenotic aortic valve. ? 5. Compared with examination from 2017 left ventricular systolic function is reduced. Left Ventricle ? Left ventricular chamber dimension is mildly enlarged. ? Left ventricular systolic function is mildly reduced, estimated at 40-45%. ? There is moderate concentric increased left ventricular wall thickness. ? The left ventricular diastolic function is grade I diastolic dysfunction. Right Ventricle ? Right ventricular chamber dimension is normal. Left Atria ? Left atrial chamber dimension is mildly enlarged. Right Atria ? Right atrial chamber dimension is normal. Body of the report states RVSP 35. Review of Systems 2 Constitutional: Constitutional: Reports no additional constitutional complaints Eyes: Eyes: Reports no additional eye complaints ENT: Reports system reviewed and no additional complaints, except as documented Cardiovascular: Cardiovascular: Reports no additional cardiovascular complaints Respiratory: Respiratory: Reports no additional respiratory complaints Gastrointestinal: Gastrointestinal: Reports no additional gastrointestinal complaints Musculoskeletal: Musculoskeletal: Reports no additional musculoskeletal complaints Neurologic: Reports system reviewed and no additional complaints, except as documented Psychiatric: Psychiatric: Reports no additional psychiatric complaints Endocrine: Endocrine: Reports no additional endocrine complaints Hematologic/Lymphatic: Hematologic/Lymphatic: Reports no additional hematologic/lymphatic complaints Allergic/Immunologic: Allergic/Immunologic: Reports no additional allergic/immunologic complaints [facility] Past Medical History Medical History (Updated 07/12/24 @ 17:45 by Valeri Swan APRN) History of DE (myocardial infarction) Chronic kidney disease, stage 4 (severe) Aortic stenosis Chronic respiratory failure with hypoxia, on home oxygen therapy Gastroesophageal reflux disease 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 Hyperlipidemia Chronic obstructive pulmonary disease Deep venous thrombosis Coronary artery disease Carotid stenosis, bilateral Depression due to physical illness Tobacco dependence Non-ST elevation myocardial infarction (NSTEMI) 05/08/2023 and 06/11/2023 Type 2 diabetes mellitus Emphysema lung Allergies Anxiety Peripheral artery disease Hypertension Renal artery stenosis Surgical History Surgical History History of cataract extraction History of coronary artery stent placement History of cardiac catheterization History of tonsillectomy Family History Family History Mother Family history of diabetes mellitus in first degree relative Cerebrovascular accident Father Family history of emphysema Sibling Family history of malignant neoplasm Social History Social History Social History: Surrogate medical decision maker: Cheryl Duval, spouse. Code status: Full code. Smoking packs per day: 0.5 Smoking cigarettes per day: 10.0 Years smoked: 40 Smoking pack-years: 20.00 Smoking status: Former smoker Tobacco type: cigarettes Alcohol intake: never Substance use: never Substance use type: does not use Do You Feel Safe in your Home?: Yes Lack of Transportation: No Lack of Food: Never True Current Housing: I Have Housing Concerned About Future Housing: No Difficulty Paying Gas/Electric Bills: No Difficulty Paying for Meds: No Currently Unemployed: No Education: High School Diploma/GED Difficulty w/ Childcare or Family Care: No Living arrangements: with family Occupation/Education: retired Spiritual care concerns: No Meds Home Medications and Allergies Home Medications ?Medication ?Instructions ?Recorded ?Confirmed ?Type aspirin 81 mg tablet,delayed 81 mg PO DAILY 12/04/19 07/12/24 History release (Adult Low Dose Aspirin) blood sugar diagnostic (Accu-Chek #100 ea 09/22/20 07/12/24 Rx Flory Plus test strips) albuterol sulfate 90 mcg/actuation 2 puff inhalation TID PRN 05/08/23 07/12/24 History aerosol inhaler Shortness Of Breath Or Wheezing ticagrelor 90 mg tablet 90 mg PO Q12H #60 tabs 09/06/23 07/12/24 Rx glipizide 5 mg tablet 5 mg PO DAILY #90 tabs 02/03/24 07/12/24 Rx cholecalciferol (vitamin D3) 50 50 mcg PO HS 02/14/24 07/12/24 History mcg (2,000 unit) capsule albuterol sulfate 1.25 mg/3 mL 1.25 mg (3 mL) inhalation Q4-6H 02/28/24 07/12/24 Rx solution for nebulization PRN shortness of breath or wheezing #90 mL tamsulosin 0.4 mg capsule 0.4 mg PO DAILY #90 caps 05/08/24 07/12/24 Rx pantoprazole 40 mg tablet,delayed 40 mg PO DAILY #90 tabs 05/14/24 07/12/24 Rx release metoprolol succinate 25 mg 25 mg PO Q12H #180 tabs 05/18/24 07/12/24 Rx tablet,extended release 24 hr (Toprol XL) clonazepam 0.5 mg tablet 0.5 mg PO Q12H PRN anxiety 06/19/24 07/12/24 History amlodipine 10 mg tablet 10 mg PO DAILY #30 tabs 06/24/24 07/12/24 Rx hydralazine 25 mg tablet 25 mg PO BID #60 tabs 06/24/24 07/12/24 Rx insulin aspart U-100 100 unit/mL 1 - 2 unit subcut HS #10 mL 06/24/24 07/12/24 Rx subcutaneous solution (Novolog U-100 Insulin aspart) insulin aspart U-100 100 unit/mL 2 - 5 unit subcut TIDWM #10 mL 06/24/24 07/12/24 Rx subcutaneous solution (Novolog U-100 Insulin aspart) empagliflozin 25 mg tablet 25 mg PO QAM #30 tabs 06/25/24 07/12/24 Rx (Jardiance) isosorbide mononitrate 20 mg tablet See Rx Instructions .Route 06/25/24 07/12/24 Rx .COMPLEX #180 tabs furosemide 80 mg tablet 80 mg PO DAILY #30 tabs 07/06/24 07/12/24 Rx atorvastatin 40 mg tablet See Rx Instructions .Route 07/09/24 07/12/24 Rx .COMPLEX #90 tabs Allergies Allergy/AdvReac Type Severity Reaction Status Date / Time No Known Allergies Allergy Unknown Verified 06/19/24 17:59 Vital Signs Vital Signs - 24 hr 07/15/24 14:00 07/15/24 14:40 07/15/24 14:47 Temperature Pulse Rate 85 94 82 Respiratory Rate 24 H 24 H Blood Pressure Pulse Oximetry Oxygen Delivery Oxygen Flow Rate 07/15/24 16:00 07/15/24 16:52 07/15/24 18:00 Temperature 36.6 C Pulse Rate 84 85 84 Respiratory Rate 18 Blood Pressure 113/51 L Pulse Oximetry 96 Oxygen Delivery Oxygen Flow Rate 07/15/24 19:50 07/15/24 20:00 07/15/24 20:00 Temperature 37.2 C Pulse Rate 84 83 Respiratory Rate 22 H Blood Pressure 121/48 L Pulse Oximetry 95 95 Oxygen Delivery Nasal Cannula Oxygen Flow Rate 4 07/15/24 20:41 07/15/24 21:30 07/15/24 21:31 Temperature Pulse Rate 85 81 Respiratory Rate 22 H Blood Pressure Pulse Oximetry 94 Oxygen Delivery Nasal Cannula Oxygen Flow Rate 4 07/15/24 21:41 07/15/24 22:00 07/16/24 00:00 Temperature Pulse Rate 85 87 Respiratory Rate 20 Blood Pressure Pulse Oximetry 95 Oxygen Delivery Nasal Cannula Oxygen Flow Rate 4 07/16/24 00:00 07/16/24 00:00 07/16/24 02:19 Temperature Pulse Rate 85 85 81 Respiratory Rate 22 H Blood Pressure 113/73 Pulse Oximetry 98 Oxygen Delivery Oxygen Flow Rate 07/16/24 02:20 07/16/24 02:30 07/16/24 03:50 Temperature 36.4 C L Pulse Rate 82 80 84 Respiratory Rate 18 18 22 H Blood Pressure 115/58 L Pulse Oximetry 94 Oxygen Delivery Oxygen Flow Rate 07/16/24 04:00 07/16/24 04:00 07/16/24 06:00 Temperature Pulse Rate 83 83 Respiratory Rate Blood Pressure Pulse Oximetry 95 Oxygen Delivery Nasal Cannula Oxygen Flow Rate 4 07/16/24 07:59 07/16/24 08:00 07/16/24 08:00 Temperature 36.6 C Pulse Rate 83 78 Respiratory Rate 22 H Blood Pressure 109/48 L Pulse Oximetry 92 98 Oxygen Delivery Nasal Cannula Oxygen Flow Rate 4 07/16/24 09:30 07/16/24 09:44 07/16/24 09:44 Temperature Pulse Rate 82 83 Respiratory Rate 18 Blood Pressure Pulse Oximetry 94 Oxygen Delivery Nasal Cannula Oxygen Flow Rate 4 07/16/24 09:54 07/16/24 10:00 Temperature Pulse Rate 85 82 Respiratory Rate 18 Blood Pressure Pulse Oximetry Oxygen Delivery Oxygen Flow Rate Exam 2 Const: General: cooperative, healthy appearing and comfortable O rientation/consciousness: oriented to person, oriented to place and oriented to time HENMT: Head: normal to inspection Ears: hearing grossly normal bilaterally Eyes: General: appearance normal, both eyes and all related structures Neck: Neck: normal visual inspection Chest: Chest palpation & inspection: normal inspection of the chest Resp: Effort & Inspection: normal respiratory effort and able to speak in complete sentences Auscultation: crackles, no rales, no rhonchi, no wheezes and diminished lung sounds Cardio: Jugular venous distension: no JVD GI: Inspection: normal to inspection GI Palp: No abdominal tenderness Skin: General skin exam: normal color Neuro: General: oriented to person, oriented to place and oriented to time Extrem: General: normal to inspection and edema Psych: Appearance: grossly normal Results Laboratory Findings 07/16/24 04:32 07/16/24 04:32 ABG, PT/INR, D-dimer: PT/INR, D-dimer PT 14.6 Seconds (11.1-14.7) 07/12/24 13:49 INR 1.1 07/12/24 13:49 Abnormal lab findings: Abnormal Labs 07/12/24 07/12/24 07/12/24 13:49 18:03 20:13 WBC 11.0 H RBC 3.98 L Hgb 11.5 L Hct 36.8 L MCHC 31.3 L RDW 15.9 H MPV 11.5 H Immature Gran % (Auto) 1.3 H Neut % (Auto) 86.8 H Lymph % (Auto) 1.6 L [place] % (Auto) 10.1 H Baso % (Auto) Lymph # (Auto) 0.18 L [place] # (Auto) 1.1 H Abs Immat Gran (auto) 0.14 H Absolute Neuts (auto) 9.6 H Sodium 133 L Chloride 95 L Carbon Dioxide Anion Gap 15 H BUN 61 H Creatinine 2.91 H Estimated GFR 21 L Glucose 228 H POC Capillary Glucose Lactic Acid 2.4 H 2.2 H Calcium Alkaline Phosphatase Troponin I 0.052 H* 0.060 H* NT-Pro-B Natriuret Pep > 05181 H Total Protein Urine Appearance Urine Protein Urine Glucose (UA) Ur Blood (Man) Ur Leukocyte Esterase Urine RBC Urine WBC Influenza A (RT-PCR) Positive A 07/12/24 07/12/24 07/13/24 22:05 22:49 04:35 WBC 11.7 H RBC 3.76 L Hgb 11.0 L Hct 35.2 L MCHC 31.3 L RDW 16.1 H MPV 11.9 H Immature Gran % (Auto) 1.1 H Neut % (Auto) 84.5 H Lymph % (Auto) 2.3 L [place] % (Auto) 11.9 H Baso % (Auto) Lymph # (Auto) 0.27 L [place] # (Auto) 1.4 H Abs Immat Gran (auto) 0.13 H Absolute Neuts (auto) 9.9 H Sodium 135 L Chloride Carbon Dioxide 20 L Anion Gap 16 H BUN 59 H Creatinine 2.78 H Estimated GFR 22 L Glucose POC Capillary Glucose 221 H Lactic Acid 3.0 H Calcium 7.9 L Alkaline Phosphatase 135 H Troponin I 0.065 H* NT-Pro-B Natriuret Pep Total Protein 6.0 L Urine Appearance Urine Protein Urine Glucose (UA) Ur Blood (Man) Ur Leukocyte Esterase Urine RBC Urine WBC Influenza A (RT-PCR) 07/13/24 07/13/24 07/13/24 07:43 11:14 15:17 WBC RBC Hgb Hct MCHC RDW MPV Immature Gran % (Auto) Neut % (Auto) Lymph % (Auto) [place] % (Auto) Baso % (Auto) Lymph # (Auto) [place] # (Auto) Abs Immat Gran (auto) Absolute Neuts (auto) Sodium Chloride Carbon Dioxide Anion Gap BUN Creatinine Estimated GFR Glucose POC Capillary Glucose 109 H 137 H 203 H Lactic Acid Calcium Alkaline Phosphatase Troponin I NT-Pro-B Natriuret Pep Total Protein Urine Appearance Urine Protein Urine Glucose (UA) Ur Blood (Man) Ur Leukocyte Esterase Urine RBC Urine WBC Influenza A (RT-PCR) 07/13/24 07/14/24 07/14/24 20:06 07:39 11:25 WBC RBC Hgb Hct MCHC RDW MPV Immature Gran % (Auto) Neut % (Auto) Lymph % (Auto) [place] % (Auto) Baso % (Auto) Lymph # (Auto) [place] # (Auto) Abs Immat Gran (auto) Absolute Neuts (auto) Sodium Chloride Carbon Dioxide Anion Gap BUN Creatinine Estimated GFR Glucose POC Capillary Glucose 347 H 250 H 287 H Lactic Acid Calcium Alkaline Phosphatase Troponin I NT-Pro-B Natriuret Pep Total Protein Urine Appearance Urine Protein Urine Glucose (UA) Ur Blood (Man) Ur Leukocyte Esterase Urine RBC Urine WBC Influenza A (RT-PCR) 07/14/24 07/14/24 07/14/24 12:07 14:19 16:39 WBC 12.4 H RBC 3.69 L Hgb 10.6 L Hct 34.4 L MCHC 30.8 L RDW 15.8 H MPV 11.5 H Immature Gran % (Auto) 1.1 H Neut % (Auto) 87.5 H Lymph % (Auto) 2.3 L [place] % (Auto) 8.9 H Baso % (Auto) Lymph # (Auto) 0.29 L [place] # (Auto) 1.1 H Abs Immat Gran (auto) 0.13 H Absolute Neuts (auto) 10.8 H Sodium 132 L Chloride 97 L Carbon Dioxide 20 L Anion Gap 15 H BUN 69 H D Creatinine 2.81 H Estimated GFR 22 L Glucose 269 H POC Capillary Glucose 359 H Lactic Acid Calcium 7.9 L Alkaline Phosphatase Troponin I NT-Pro-B Natriuret Pep Total Protein Urine Appearance Cloudy H Urine Protein 1+ H Urine Glucose (UA) 3+ H Ur Blood (Man) 2+ H Ur Leukocyte Esterase Trace H Urine RBC 11-20 H Urine WBC 6-10 H Influenza A (RT-PCR) 07/14/24 07/15/24 07/15/24 21:44 07:45 09:23 WBC RBC 3.30 L Hgb 9.6 L Hct 30.6 L MCHC 31.4 L RDW 15.6 H MPV 12.0 H Immature Gran % (Auto) 0.7 H Neut % (Auto) 94.6 H Lymph % (Auto) 1.6 L [place] % (Auto) Baso % (Auto) 0.0 L Lymph # (Auto) 0.13 L [place] # (Auto) Abs Immat Gran (auto) 0.06 H Absolute Neuts (auto) 7.7 H Sodium 129 L Chloride 94 L Carbon Dioxide 18 L Anion Gap 17 H BUN 80 H D Creatinine 2.82 H Estimated GFR 22 L Glucose 420 H POC Capillary Glucose 348 H 349 H Lactic Acid Calcium 7.6 L Alkaline Phosphatase Troponin I NT-Pro-B Natriuret Pep Total Protein Urine Appearance Urine Protein Urine Glucose (UA) Ur Blood (Man) Ur Leukocyte Esterase Urine RBC Urine WBC Influenza A (RT-PCR) 07/15/24 07/15/24 07/15/24 11:47 15:43 20:32 WBC RBC Hgb Hct MCHC RDW MPV Immature Gran % (Auto) Neut % (Auto) Lymph % (Auto) [place] % (Auto) Baso % (Auto) Lymph # (Auto) [place] # (Auto) Abs Immat Gran (auto) Absolute Neuts (auto) Sodium Chloride Carbon Dioxide Anion Gap BUN Creatinine Estimated GFR Glucose POC Capillary Glucose 452 H > 500 H* 322 H Lactic Acid Calcium Alkaline Phosphatase Troponin I NT-Pro-B Natriuret Pep Total Protein Urine Appearance Urine Protein Urine Glucose (UA) Ur Blood (Man) Ur Leukocyte Esterase Urine RBC Urine WBC Influenza A (RT-PCR) 07/16/24 07/16/24 07/16/24 04:32 07:22 11:01 WBC 11.2 H RBC 3.21 L Hgb 9.4 L Hct 28.9 L MCHC RDW 15.6 H MPV 12.0 H Immature Gran % (Auto) 0.6 H Neut % (Auto) 94.0 H Lymph % (Auto) 1.6 L [place] % (Auto) Baso % (Auto) 0.1 L Lymph # (Auto) 0.18 L [place] # (Auto) Abs Immat Gran (auto) 0.07 H Absolute Neuts (auto) 10.5 H Sodium 129 L Chloride 95 L Carbon Dioxide 19 L Anion Gap 15 H BUN 84 H Creatinine 2.98 H Estimated GFR 20 L Glucose 232 H POC Capillary Glucose 229 H 310 H Lactic Acid Calcium 7.8 L Alkaline Phosphatase Troponin I NT-Pro-B Natriuret Pep Total Protein Urine Appearance Urine Protein Urine Glucose (UA) Ur Blood (Man) Ur Leukocyte Esterase Urine RBC Urine WBC Influenza A (RT-PCR) Diagnostic Findings Additional studies: ITS Impressions Chest X-Ray 07/12/24 14:16 IMPRESSION: 1. Airspace opacities at the lung bases, consistent with atelectasis versus pneumonia. 2. Small pleural effusions. 3. Cardiomegaly. Chest CT 07/16/24 07:14 Impression: Moderate to large bilateral pleural effusions with bibasilar atelectatic change and probable mild pulmonary edema. Suspected underlying mild emphysema. Small amount of upper abdominal ascites. Mild mediastinal lymphadenopathy, nonspecific, unchanged.
--- NOTE | 2024-07-16 12:50 | ECHO_ITS ---
Patient Info Name: Silvano Duval Age: 79 years : 1945 Gender: Male Ht: 65 in Wt: 145 lbs BSA: 1.75 m2 HR: 82 bpm BP: 109 / 48 mmHg Technical Quality: Poor Exam Date: 07/16/2024 2:37 PM Exam Location: Echo Lab Patient Status: Inpatient Admit Date: 07/13/2024 Staff Ordering Physician: Cody Sandoval MD [place] Baggage: Lesly Osborn RDCS Attending Provider: Quinton Crawford MD Referring Physician: Jaime HENRIQUEZ; Exam Type: CA echo dop color flow w con Study Info Indications - EVALUATE RV/PASP - - ELVALUATE LVF Complete two-dimensional, color flow and Doppler transthoracic echocardiogram is performed with contrast to opacify the left ventricle and to improve the deliniation of the left ventricle endocardial borders. Contrast/Agitated Saline Contrast/Ag. Saline: Definity Amount: 2.00 ml Existing IV Access: Yes Reason for Poor Study: poor echocardiographic windows Summary 1. Definity contrast administered improved wall motion interpretation. 2. Left ventricular chamber dimension is moderately enlarged. 3. There is moderate concentric increased left ventricular wall thickness. 4. Left ventricular systolic function is severely globally reduced, estimated at 25-30%. 5. The left ventricular diastolic function is abnormal. 6. E/e' 31 is significantly elevated. 7. RV function appears visually to be preserved, however, right ventricular systolic function is reduced based on abnormal TAPSE 1.2 cm. 8. Left atrial chamber dimension is mildly enlarged. 9. There is moderate aortic valve sclerosis. 10. There is moderate aortic valve stenosis with a peak velocity of 144.98 cm/s, mean gradient of 5 mmHg, and aortic valve area of 1.10 cm2. The dimensionless index is 0.51 which is not severe aortic valve stenosis in setting of cardiomyopathy. 11. The mitral valve has moderately calcified annulus. 12. There is mild tricuspid valve regurgitation. 13. No pulmonary hypertension, estimated pulmonary arterial systolic pressure is 36 mmHg. 14. Dilated inferior vena cava with <50% collapse upon inspiration consistent with significantly elevated right atrial pressure, 15 mmHg. 15. Large pleural effusion. Left Ventricle E/e' 31 is significantly elevated. Left ventricular systolic function is severely globally reduced, estimated at 25-30%. Definity contrast administered improved wall motion interpretation. Left ventricular chamber dimension is moderately enlarged. There is moderate concentric increased left ventricular wall thickness. The left ventricular diastolic function is abnormal. Right Ventricle RV function appears visually to be preserved, however, right ventricular systolic function is reduced based on abnormal TAPSE 1.2 cm. Right ventricular chamber dimension is normal. Left Atria Left atrial chamber dimension is mildly enlarged. Right Atria Right atrial chamber dimension is normal. Aortic Valve There is moderate aortic valve stenosis with a peak velocity of 144.98 cm/s, mean gradient of 5 mmHg, and aortic valve area of 1.10 cm2. The dimensionless index is 0.51 which is not severe aortic valve stenosis in setting of cardiomyopathy. The aortic valve is trileaflet. There is moderate aortic valve sclerosis. There is no aortic valve regurgitation. Pulmonic Valve There is no pulmonic regurgitation. Mitral Valve The mitral valve has moderately calcified annulus. There is no mitral valve stenosis. There is no mitral valve regurgitation. Tricuspid Valve There is mild tricuspid valve regurgitation. No pulmonary hypertension, estimated pulmonary arterial systolic pressure is 36 mmHg. Pericardium/Pleural There is no pericardial effusion. Large pleural effusion. Inferior Vena Cava Dilated inferior vena cava with <50% collapse upon inspiration consistent with significantly elevated right atrial pressure, 15 mmHg. Aorta The aortic root size at the sinus of Valsalva is normal. Left Ventricular Outflow Tract Name Value Normal LVOT 2D LVOT Diameter 1.65 cm LVOT Doppler LVOT Peak Gradient 2 mmHg LVOT Mean Gradient 1 mmHg LVOT VTI 14.70 cm LVOT VTI/AV VTI Ratio 0.51 LVOT Stroke Volume 31.53 ml LVOT CO 2.82 l/min LVOT CI 1.62 L/min/m2 Pulmonic Valve Name Value Normal RVOT Doppler RVOT Peak Gradient 2 mmHg PV Doppler PV Peak Gradient 3 mmHg Mitral Valve Name Value Normal MV Doppler MV Decel [place] 799.41 cm/s2 MV PHT 0 s MV Area (PHT) 4.85 cm2 4.00-5.00 MV Diastolic Function MV E Peak Velocity 125.11 cm/s MV A Peak Velocity 71.50 cm/s MV E/A 1.75 MV Decel Time 0 s MV Annular TDI MV E/e' (Septal) 82.46 <=8.00 MV E/e' (Lateral) 25.80 <=8.00 MV E/e' (Average) 54.13 Tricuspid Valve Name Value Normal TV Regurgitation Doppler TR Peak Velocity 229.84 cm/s TR Peak Gradient 21 mmHg Estimated PAP/RSVP RA Pressure 15 mmHg <=5 PA Systolic Pressure 36 mmHg <36 RV Systolic Pressure 36 mmHg <36 Aorta Name Value Normal Ascending Aorta Ao Root Diameter (MM) 2.97 cm Ao Root Diam Index (MM) 1.70 cm/m2 Aortic Valve Name Value Normal AV Doppler AV Peak Velocity 144.98 cm/s AV Peak Gradient 8 mmHg AV Mean Gradient 5 mmHg AV VTI 28.59 cm AV Area (Cont Eq VTI) 1.10 cm2 >=3.00 AV Area (Cont Eq Humza) 1.07 cm2 AV Regurgitation 2D LVOT Area 2.14 cm2 Ventricles Name Value Normal LV Dimensions 2D/MM IVS Diastolic Thickness (2D) 1.42 cm 0.60-1.00 LVID Diastole (2D) 4.56 cm 4.20-5.80 LVIW Diastolic Thickness (2D) 1.40 cm 0.60-1.00 LVID Systole (2D) 3.72 cm 2.50-4.00 LVOT Diameter 1.65 cm LV Mass (2D Cubed) 256.33 g 88.00-224.00 LV Mass Index (2D Cubed) 0.01 g/cm2 0.00-0.01 Relative Wall Thickness (2D) 0.61 LV Fractional Shortening/Ejection Fraction 2D/MM LV Fractional Shortening (2D) 20 % 25-43 LV EF (2D Teicholz) 41 % 52-72 LV Diastolic Volume (4C MOD) 74.75 ml LV EF (4C MOD) 35 % LV Diastolic Volume (2C MOD) 96.80 ml LV EF (2C MOD) 22 % LV Diastolic Volume (BP MOD) 85.48 ml 62.00-150.00 LV Diastolic Volume Index (BP MOD) 0.05 l/m2 0.03-0.07 LV Systolic Volume (BP MOD) 60.08 ml 21.00-61.00 LV Systolic Volume Index (BP MOD) 0.03 l/m2 0.01-0.03 LV EF (BP MOD) 30 % 52-72 LV Diastolic Length (4C) 7.06 cm LV Systolic Length (4C) 6.39 cm LV Stroke Volume (4C MOD) 26.53 ml Atria Name Value Normal LA Dimensions LA Dimension (MM) 3.98 cm 3.00-4.10 LA Volume (4C A-L) 41.91 ml LA Volume (BP A-L) 49.80 ml RA Dimensions RA Area (4C) 11.41 cm2 <=18.00 Report Signatures
[2024-07-16] MEDS: AZITHROMYCIN 500 MG/NS 250 ML 500 MG/250 ML BAG 250 MG IVPB (12:59)
[2024-07-16] MEDS: INSULIN GLARGINE (*BKC) 100 UNITS/ML 20 UNITS SUB-Q (12:59)
[2024-07-16 15:29] LABS: NT Pro B Type Natriuretic Pept > 30000 pg/mL (19.9-100)
[2024-07-16] MEDS: PERFLUTREN LIPID MICROSPHERES 1.5 ML VIAL DILUTED TO 10 ML TOTAL VOLUME IV PUSH (15:50)
[2024-07-16 16:12] LABS: Glucose Point of Care 390 mg/dl (65-105)
--- NOTE | 2024-07-16 16:40 | P.CONCA_ITS ---
Assessment and Plan Assessment and plan (1) Combined systolic and diastolic cardiac dysfunction: Code(s): I51.89 - Other ill-defined heart diseases Status: Acute Assessment and Plan: Acute on chronic. He diuresed well on IV Lasix at last hospitalization last month. Apparently, PO Lasix is not adequate, and would use Bumetanide PO instead once adequately diuresed with IV. If contemplating thoracentesis, then antiplatelets may be held for 5 days prior and resume afterwards. Obtain echo. (2) Influenza: Code(s): J11.1 - Influenza due to unidentified influenza virus with other respiratory manifestations Status: Acute Assessment and Plan: Managed by pulm and hospitalist. (3) Chronic kidney disease, stage 4 (severe): Code(s): N18.4 - Chronic kidney disease, stage 4 (severe) Status: Chronic Assessment and Plan: Monitor as being diursed. (4) Coronary artery disease: Code(s): I25.10 - Atherosclerotic heart disease of [place] coronary artery without angina pectoris Status: Acute Assessment and Plan: Stable. (5) Hypertension: Qualifiers: Hypertension type: secondary to other renal disorders Qualified Code(s): I15.1 - Hypertension secondary to other renal disorders Code(s): I10 - Essential (primary) hypertension Status: Chronic Assessment and Plan: Stable. (6) Dyslipidemia: Code(s): E78.5 - Hyperlipidemia, unspecified Status: Acute Assessment and Plan: On Atorvastatin. History of Present Illness History of Present Illness Consult date/time: 07/16/24 16:40 Reason For Visit: Influenza/Pneumonia/Elevated Troponin Narrative: 79 yr old man who is my regular cardiology patient presents to ER for SOB and weakness. He has a history of severe multivessel CAD (not candidate for CABG due to high risk), NSTEMI, PAD, DM, smoking, hypertension, dyslipidemia, COPD, renal artery stenosis. He has been here since 07/12/24 and found to have influenza and large pleural effusions bilaterally. When he was here a month ago he diuresed well with IV Lasix from large pleural effusions to small amounts. Reports sob in last 1 week. He has cough with white sputum production. He can walk shorter distances now in from parking lot then has [place]. He quit smoking in Jun 2023. Denies chest pain, edema, dizziness, palpitations. Cardiovascular Procedures [facility] [employer]:: 06/13/23 [facility] with Dr. Pablo at [facility] [place]: RESPIRATORY PRACTITIONER of right common iliac artery. LM 70-80%, LAD diffuse disease with severe stenosis in apical segment, LCx prox 80%, RCA with diffuse disease with severe stenosis in mid PDA; PCI to prox LCx and PCI to LM. 05/18/23 [facility] at [place] with Dr. Emanuel: LM 75%, LAD ostial 75%, then diffuse 40%, distal 80%, 1st Diag is tiny, 2nd Diag small with 95%, LCx distal 50%, 2nd OM large with prox 60-70%, 3rd OM small, 4th OM medium with ostial 75%, RCA ostial 75%, then 50% diffuse, distal 75%, PDA small with mid 90%. Echo/MUGA:: 02/20/24 Echo: EF 40-45%, mild LVH, grade III diastolic dysfunction (E/e' 38), mod LAE, mild-mod (SABRINA 1.1 cm2), mild MR/TR, trace PI, RVSP 43 mmHg. 05/09/23 Echo: EF 40-45%, mod LVH, grade I diastolic dysfunction, mild LAE. Electrophysiology:: 02/20/24 EKG: Sinus rhythm, ST-T wave abnormality- consider lat/high lat ischemia. Stress Tests:: 02/18/24 CXR: Small bilateral pleural effusion. Opacities in lower lung zones, consider pneumonia. Review of Systems 2 Review of Systems: All systems reviewed & are unremarkable except as noted in HPI and below Constitutional: Constitutional: Reports as per HPI, Denies chills, Reports fatigue and Denies fever(s) Cardiovascular: Cardiovascular: Reports as per HPI and Denies chest pain Respiratory: Respiratory: Reports as per HPI, Reports cough and Denies dyspnea Gastrointestinal: Gastrointestinal: Reports as per HPI and Denies abdominal pain Genitourinary: Genitourinary: Reports as per HPI and Denies dysuria Integumentary/Breasts: Skin/Breast: Reports as per HPI Neurologic: Reports as per HPI, Denies dizziness and Denies syncope [facility] Past Medical History Medical History (Updated 07/12/24 @ 17:45 by Valeri Swan, DIRECTOR OF ATHLETICS) History of [place] (myocardial infarction) Chronic kidney disease, stage 4 (severe) Aortic stenosis Chronic respiratory failure with hypoxia, on home oxygen therapy Gastroesophageal reflux disease 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 Hyperlipidemia Chronic obstructive pulmonary disease Deep venous thrombosis Coronary artery disease Carotid stenosis, bilateral Depression due to physical illness Tobacco dependence Non-ST elevation myocardial infarction (NSTEMI) 05/08/2023 and 06/11/2023 Type 2 diabetes mellitus Emphysema lung Allergies Anxiety Peripheral artery disease Hypertension Renal artery stenosis Surgical History Surgical History History of cataract extraction History of coronary artery stent placement History of cardiac catheterization History of tonsillectomy Family History Family History Mother Family history of diabetes mellitus in first degree relative Cerebrovascular accident Father Family history of emphysema Sibling Family history of malignant neoplasm Social History Social History Social History: Surrogate medical decision maker: Cheryl Crockettwell, spouse. Code status: Full code. Smoking packs per day: 0.5 Smoking cigarettes per day: 10.0 Years smoked: 40 Smoking pack-years: 20.00 Smoking status: Former smoker Tobacco type: cigarettes Alcohol intake: never Substance use: never Substance use type: does not use Do You Feel Safe in your Home?: Yes Lack of Transportation: No Lack of Food: Never True Current Housing: I Have Housing Concerned About Future Housing: No Difficulty Paying Gas/Electric Bills: No Difficulty Paying for Meds: No Currently Unemployed: No Education: High School Diploma/GED Difficulty w/ Childcare or Family Care: No Living arrangements: with family Occupation/Education: retired Spiritual care concerns: No Meds Home Medications and Allergies Home Medications ?Medication ?Instructions ?Recorded ?Confirmed ?Type aspirin 81 mg tablet,delayed 81 mg PO DAILY 12/04/19 07/12/24 History release (Adult Low Dose Aspirin) blood sugar diagnostic (Accu-Chek #100 ea 09/22/20 07/12/24 Rx Flory Plus test strips) albuterol sulfate 90 mcg/actuation 2 puff inhalation TID PRN 05/08/23 07/12/24 History aerosol inhaler Shortness Of Breath Or Wheezing ticagrelor 90 mg tablet 90 mg PO Q12H #60 tabs 04/02/24 02/06/25 Rx glipizide 5 mg tablet 5 mg PO DAILY #90 tabs 02/03/24 07/12/24 Rx cholecalciferol (vitamin D3) 50 50 mcg PO HS 02/14/24 07/12/24 History mcg (2,000 unit) capsule albuterol sulfate 1.25 mg/3 mL 1.25 mg (3 mL) inhalation Q4-6H 02/28/24 07/12/24 Rx solution for nebulization PRN shortness of breath or wheezing #90 mL tamsulosin 0.4 mg capsule 0.4 mg PO DAILY #90 caps 05/08/24 07/12/24 Rx pantoprazole 40 mg tablet,delayed 40 mg PO DAILY #90 tabs 05/14/24 07/12/24 Rx release metoprolol succinate 25 mg 25 mg PO Q12H #180 tabs 05/18/24 07/12/24 Rx tablet,extended release 24 hr (Toprol XL) clonazepam 0.5 mg tablet 0.5 mg PO Q12H PRN anxiety 06/19/24 07/12/24 History amlodipine 10 mg tablet 10 mg PO DAILY #30 tabs 06/24/24 07/12/24 Rx hydralazine 25 mg tablet 25 mg PO BID #60 tabs 06/24/24 07/12/24 Rx insulin aspart U-100 100 unit/mL 1 - 2 unit subcut HS #10 mL 06/24/24 07/12/24 Rx subcutaneous solution (Novolog U-100 Insulin aspart) insulin aspart U-100 100 unit/mL 2 - 5 unit subcut TIDWM #10 mL 06/24/24 07/12/24 Rx subcutaneous solution (Novolog U-100 Insulin aspart) empagliflozin 25 mg tablet 25 mg PO QAM #30 tabs 06/25/24 07/12/24 Rx (Jardiance) isosorbide mononitrate 20 mg tablet See Rx Instructions .Route 06/25/24 07/12/24 Rx .COMPLEX #180 tabs furosemide 80 mg tablet 80 mg PO DAILY #30 tabs 07/06/24 07/12/24 Rx atorvastatin 40 mg tablet See Rx Instructions .Route 07/09/24 07/12/24 Rx .COMPLEX #90 tabs Allergies Allergy/AdvReac Type Severity Reaction Status Date / Time No Known Allergies Allergy Unknown Verified 06/19/24 17:59 Vital Signs Vital Signs - 24 hr 07/15/24 16:52 07/15/24 18:00 07/15/24 19:50 Temperature 97.8 F 98.9 F Pulse Rate 85 84 84 Respiratory Rate 18 22 H Blood Pressure 113/51 L 121/48 L Pulse Oximetry 96 95 Oxygen Delivery Oxygen Flow Rate 07/15/24 20:00 07/15/24 20:00 07/15/24 20:41 Temperature Pulse Rate 83 85 Respiratory Rate Blood Pressure Pulse Oximetry 95 Oxygen Delivery Nasal Cannula Oxygen Flow Rate 4 07/15/24 21:30 07/15/24 21:31 07/15/24 21:41 Temperature Pulse Rate 81 85 Respiratory Rate 22 H 20 Blood Pressure Pulse Oximetry 94 Oxygen Delivery Nasal Cannula Oxygen Flow Rate 4 07/15/24 22:00 07/16/24 00:00 07/16/24 00:00 Temperature Pulse Rate 87 85 Respiratory Rate Blood Pressure Pulse Oximetry 95 Oxygen Delivery Nasal Cannula Oxygen Flow Rate 4 07/16/24 00:00 07/16/24 02:19 07/16/24 02:20 Temperature Pulse Rate 85 81 82 Respiratory Rate 22 H 18 Blood Pressure 113/73 Pulse Oximetry 98 Oxygen Delivery Oxygen Flow Rate 07/16/24 02:30 07/16/24 03:50 07/16/24 04:00 Temperature 97.5 F L Pulse Rate 80 84 Respiratory Rate 18 22 H Blood Pressure 115/58 L Pulse Oximetry 94 95 Oxygen Delivery Nasal Cannula Oxygen Flow Rate 4 07/16/24 04:00 07/16/24 06:00 07/16/24 07:59 Temperature 97.8 F Pulse Rate 83 83 83 Respiratory Rate 22 H Blood Pressure 109/48 L Pulse Oximetry 92 Oxygen Delivery Oxygen Flow Rate 07/16/24 08:00 07/16/24 08:00 07/16/24 09:30 Temperature Pulse Rate 78 82 Respiratory Rate Blood Pressure Pulse Oximetry 98 Oxygen Delivery Nasal Cannula Oxygen Flow Rate 4 07/16/24 09:44 07/16/24 09:44 07/16/24 09:54 Temperature Pulse Rate 83 85 Respiratory Rate 18 18 Blood Pressure Pulse Oximetry 94 Oxygen Delivery Nasal Cannula Oxygen Flow Rate 4 07/16/24 10:00 07/16/24 12:00 07/16/24 12:00 Temperature Pulse Rate 82 82 Respiratory Rate Blood Pressure Pulse Oximetry 96 Oxygen Delivery Nasal Cannula Oxygen Flow Rate 4 07/16/24 12:50 07/16/24 16:06 07/16/24 16:16 Temperature 97.7 F Pulse Rate 85 78 81 Respiratory Rate 22 H 24 H 20 Blood Pressure 119/54 L Pulse Oximetry 95 Oxygen Delivery Oxygen Flow Rate Exam 2 Const: General: cooperative and ill appearing (tachypneic) Resp: Auscultation: no crackles, no rales, no wheezes and breath sounds absent Cardio: Rate: regular rate Rhythm: regular rhythm Heart sounds: no murmurs Peripheral pulses: dorsalis pedis present GI: GI Palp: No abdominal tenderness Neuro: General: oriented to person, oriented to place and oriented to time Extrem: Right lower extremity: edema Left lower extremity: edema Other: Mod edema of both legs Results Labs and Meds 07/16/24 04:32 07/16/24 04:32 Lab results: CBC 07/16/24 Range/Units 04:32 WBC 11.2 H (4.5-10.0) K/mm3 RBC 3.21 L (4.6-6.20) M/mm3 Hgb 9.4 L (14.0-18.0) g/dL Hct 28.9 L (42.0-52.0) % Plt Count 154 (150-375) k/mm3 Lymph # (Auto) 0.18 L (0.9-3.2) K/mm3 [place] # (Auto) 0.4 (0.1-0.6) K/mm3 Eos # (Auto) 0.0 (0-0.3) K/mm3 Baso # (Auto) 0.0 (0.0-0.1) K/mm3 Comprehensive Metabolic Panel 07/16/24 Range/Units 04:32 Sodium 129 L (137-145) mmol/L Potassium 4.3 (3.4-5.0) mmol/L Chloride 95 L (98-107) mmol/L Carbon Dioxide 19 L (22-30) mmol/L BUN 84 H (9-20) mg/dL Creatinine 2.98 H (0.7-1.3) mg/dL Glucose 232 H (65-110) mg/dL Calcium 7.8 L (8.4-10.2) mg/dL Intake and Output 07/16/24 07/16/24 07/16/24 07:59 15:59 23:59 Intake Total 350 1082 Output Total 650 Balance -300 1082 Intake: Oral 350 608 Oral Supplement 474 Output: Catheter Urine 650 Urethral Catheter 650 Other: Number of Bowel Movements Today 1 Patient Weight 07/16/24 23:59 Weight 66 kg
[2024-07-16] MEDS: INSULIN ASPART (*BKC) 100 UNITS/ML 9 UNITS SUB-Q (17:52)
[2024-07-16] MEDS: OSELTAMIVIR PHOSPHATE 30 MG CAPSULE PO (18:00)
[2024-07-16] MEDS: CEFEPIME 2 GM/NS 50 ML 2 GM/50 ML BAG IVPB (20:12)
[2024-07-16] MEDS: CHOLECALCIFEROL 1,000 UNITS TABLET 2000 UNITS PO (20:15)
[2024-07-16 20:25] LABS: Glucose Point of Care 459 mg/dl (65-105)
[2024-07-16] MEDS: INSULIN ASPART (*BKC) 100 UNITS/ML 6 UNITS SUB-Q (20:45)
[2024-07-16] MEDS: clonazePAM (*CRX) 0.5 MG TABLET PO (20:51)
[2024-07-16 23:25] LABS: Glucose Point of Care 312 mg/dl (65-105)
[2024-07-17] VITALS (28 sets, daily range): BP systolic 108–141; BP diastolic 47–98; PULSE 74–90; RESP 16–33; TEMP 35.9–36.8; O2SAT 90–95
[2024-07-17] MEDS: IPRATROPIUM 0.5 MG/ALBUTEROL SULFATE 2.5 MG AMPUL.NEB 3 ML INHALATION ×4 (01:58→20:41)
[2024-07-17 05:20] LABS: Basophils Percent Auto 0.1 % (0.2-1.2); Hematocrit 28.9 % (42.0-52.0); Hemoglobin 9.1 g/dL (14.0-18.0); Immature Granulocyte Absolute 0.12 K/mm3 (0.00-0.031); Immature Granulocyte Percent A 0.9 % (0-0.5); Lymphocytes Absolute Auto 0.22 K/mm3 (0.9-3.2); Lymphocytes Percent Auto 1.6 % (18.3-44.2); Mean Corpuscular HGB Conc 31.5 g/dl (32-36); Mean Corpuscular Hemoglobin 28.4 pg (26-34); Mean Corpuscular Volume 90.3 fl (80-100); Mean Platelet Volume 11.9 fl (7.4-10.4); Monocytes Absolute Auto 0.7 K/mm3 (0.1-0.6); Monocytes Percent Auto 5.3 % (2.6-8.5); Neutrophils Absolute Auto 12.4 K/mm3 (1.3-6.7); Neutrophils Percent Auto 92.1 % (45.5-73.1); Platelet Count Result 149 k/mm3 (150-375); Red Cell Distribution Width 15.5 % (11.5-14.5); White Blood Count 13.4 K/mm3 (4.5-10.0)
[2024-07-17 05:36] LABS: Anion Gap 15 mmol/L (4-12); Blood Urea Nitrogen 96 mg/dL (9-20); Calcium 8.2 mg/dL (8.4-10.2); Carbon Dioxide 20 mmol/L (22-30); Chloride 94 mmol/L (98-107); Estimated CRCL calculation 16 ml/min; Estimated Glomerular Filt Rate 19; Glucose 137 mg/dL (65-110); Magnesium 2.3 mg/dL (1.6-2.3); Potassium 4.2 mmol/L (3.4-5.0); Sodium 129 mmol/L (137-145)
[2024-07-17 05:47] LABS: Large Platelets Present; Platelet Estimate Slightly Decreased (Adequate)
[2024-07-17 05:48] LABS: Anisocytosis 1+; Burr Cells 1+; Schistocytes None Seen
[2024-07-17 07:24] LABS: Glucose Point of Care 97 mg/dl (65-105)
--- NOTE | 2024-07-17 07:49 | PC.NURSE ---
Spoke with Dr Kim and received order to hold insulin this morning due to POC glucose of 97 and to hold Brilenta due to possible need for thoracentesis. Orders read back and verified.
--- NOTE | 2024-07-17 07:53 | PM.PNCARD ---
Progress Note: A&P Assessment and Plan (1) Combined systolic and diastolic cardiac dysfunction: Code(s): I51.89 - Other ill-defined heart diseases Status: Acute Assessment and Plan: Acute on chronic, probably due to influenza. He diuresed well on IV Lasix at last hospitalization last month. Apparently, PO Lasix is not adequate, and would use Bumetanide PO instead once adequately diuresed with IV. If contemplating thoracentesis, then antiplatelets may be held for 5 days prior and resume afterwards. 07/16/24 Echo: EF 25-30%, mod LVE, mod LVH, diastolic dysfunction (E/e' 31), RV dysfunction based on TAPSE 1.2 cm, mild LAE, mos (SABRINA 1.1 cm2, DI 0.51), mod MAC, mild MR, large pleural effusion. On Metoprolol (not Coreg as he has COPD), Jardiance. Not on Entresto and Spironolactone due to concern for worsening kidney function. Discuss Life vest to prevent sudden cardiac arrest, but he is not interested as he had it in past and it was too cumbersome for him. Not sure if fluid balance is correct with a significant positive balance of 7.1 liters. (2) Influenza: Code(s): J11.1 - Influenza due to unidentified influenza virus with other respiratory manifestations Status: Acute Assessment and Plan: Managed by pulm and hospitalist. (3) Chronic kidney disease, stage 4 (severe): Code(s): N18.4 - Chronic kidney disease, stage 4 (severe) Status: Chronic Assessment and Plan: Monitor as being diursed. (4) Coronary artery disease: Code(s): I25.10 - Atherosclerotic heart disease of [place] coronary artery without angina pectoris Status: Acute Assessment and Plan: Stable. (5) Hypertension: Qualifiers: Hypertension type: secondary to other renal disorders Qualified Code(s): I15.1 - Hypertension secondary to other renal disorders Code(s): I10 - Essential (primary) hypertension Status: Chronic Assessment and Plan: Stable. (6) Dyslipidemia: Code(s): E78.5 - Hyperlipidemia, unspecified Status: Acute Assessment and Plan: On Atorvastatin. Subjective Date/time seen: 07/17/24 07:53 Interval history: He has mild sob and cough. No chest pains. Exam Const: General: cooperative and ill appearing (tachypneic) Orientation/consciousness: oriented to person, oriented to place and oriented to time Resp: Auscultation: no crackles, no rales, no wheezes and breath sounds absent Cardio: Rate: regular rate Rhythm: regular rhythm Heart sounds: no murmurs Peripheral pulses: dorsalis pedis present Neuro: General: oriented to person, oriented to place and oriented to time Extrem: Right lower extremity: edema Left lower extremity: edema Other: Mod edema of both legs Objective Data Vital Signs Vital Signs: Vital Signs - 24 hr 07/16/24 07:59 07/16/24 08:00 07/16/24 08:00 Temperature 97.8 F Pulse Rate 83 78 Respiratory Rate 22 H Blood Pressure 109/48 L Pulse Oximetry 92 98 Oxygen Delivery Nasal Cannula Oxygen Flow Rate 4 Fraction of Inspired Oxygen 07/16/24 09:30 07/16/24 09:44 07/16/24 09:44 Temperature Pulse Rate 82 83 Respiratory Rate 18 Blood Pressure Pulse Oximetry 94 Oxygen Delivery Nasal Cannula Oxygen Flow Rate 4 Fraction of Inspired Oxygen 07/16/24 09:54 07/16/24 10:00 07/16/24 12:00 Temperature Pulse Rate 85 82 Respiratory Rate 18 Blood Pressure Pulse Oximetry 96 Oxygen Delivery Nasal Cannula Oxygen Flow Rate 4 Fraction of Inspired Oxygen 07/16/24 12:00 07/16/24 12:50 07/16/24 14:00 Temperature 97.7 F Pulse Rate 82 85 81 Respiratory Rate 22 H Blood Pressure 119/54 L Pulse Oximetry 95 Oxygen Delivery Oxygen Flow Rate Fraction of Inspired Oxygen 07/16/24 16:00 07/16/24 16:00 07/16/24 16:06 Temperature 97.3 F L Pulse Rate 78 78 Respiratory Rate 26 H 24 H Blood Pressure 108/48 L Pulse Oximetry 95 96 Oxygen Delivery Nasal Cannula Oxygen Flow Rate 4 Fraction of Inspired Oxygen 07/16/24 16:16 07/16/24 18:00 07/16/24 19:25 Temperature Pulse Rate 81 84 Respiratory Rate 20 Blood Pressure Pulse Oximetry 96 Oxygen Delivery Nasal Cannula Oxygen Flow Rate 4 Fraction of Inspired Oxygen 07/16/24 19:37 07/16/24 19:37 07/16/24 19:48 Temperature Pulse Rate 84 85 Respiratory Rate 20 20 Blood Pressure Pulse Oximetry 94 Oxygen Delivery Nasal Cannula Oxygen Flow Rate 4 Fraction of Inspired Oxygen 36 07/16/24 20:00 07/16/24 20:14 07/16/24 20:17 Temperature 97.6 F Pulse Rate 88 87 87 Respiratory Rate 23 H Blood Pressure 115/47 L Pulse Oximetry 94 Oxygen Delivery Oxygen Flow Rate Fraction of Inspired Oxygen 07/16/24 22:00 07/16/24 23:17 07/16/24 23:49 Temperature 97.6 F Pulse Rate 87 86 Respiratory Rate 23 H Blood Pressure 125/55 L Pulse Oximetry 94 93 Oxygen Delivery Nasal Cannula Oxygen Flow Rate 4 Fraction of Inspired Oxygen 07/17/24 00:00 07/17/24 01:58 07/17/24 02:00 Temperature Pulse Rate 86 84 84 Respiratory Rate 20 Blood Pressure Pulse Oximetry Oxygen Delivery Oxygen Flow Rate Fraction of Inspired Oxygen 07/17/24 02:11 07/17/24 04:00 07/17/24 04:00 Temperature Pulse Rate 85 85 Respiratory Rate 20 Blood Pressure Pulse Oximetry 95 Oxygen Delivery Nasal Cannula Oxygen Flow Rate 4 Fraction of Inspired Oxygen 07/17/24 04:22 07/17/24 06:46 Temperature 97.5 F L Pulse Rate 85 85 Respiratory Rate 23 H Blood Pressure 127/57 L Pulse Oximetry 93 Oxygen Delivery Oxygen Flow Rate Fraction of Inspired Oxygen Intake/Output Intake/Output: Intake & Output 07/14/24 07/15/24 07/16/24 07/17/24 23:59 23:59 23:59 23:59 Intake Total 1450 1780 2819 2207 Output Total 1251 1500 1050 500 Balance 251 381 9954 1707 Meds/Results Medications: Active Medications Generic Name Dose Route Start Last Admin Trade Name Freq PRN Reason Stop Dose Admin Acetaminophen 650 mg 07/12/24 16:33 07/14/24 20:29 Acetaminophen 325 Mg Tablet PO 650 mg Q4H PRN Administration Mild Pain (1-3) or Fever Albuterol 2 puff 07/13/24 11:30 07/15/24 11:10 Albuterol Sulfate (*Sp) Aerosol 1 Puff INHALATION 2 puff TID PRN Administration Shortness Of Breath Or Wheezing Albuterol/Ipratropium 3 ml 07/12/24 20:00 07/17/24 07:51 Ipratropium 0.5 Mg/Albuterol Sulfate 2.5 Mg Ampul.Neb 3 Ml INHALATION 3 ml Q6HRT TOM Administration Amlodipine Besylate 10 mg 07/13/24 11:40 07/16/24 09:30 Amlodipine Besylate 10 Mg Tablet PO 10 mg DAILY TOM Administration Aspirin 81 mg 07/13/24 11:40 07/16/24 09:30 Aspirin 81 Mg Enteric Tablet PO 81 mg DAILY TOM Administration Atorvastatin Calcium 40 mg 07/13/24 11:40 07/16/24 09:30 Atorvastatin 40 Mg Tablet PO 40 mg DAILY TOM Administration Benzocaine 1 lozenge 07/12/24 17:23 07/13/24 20:31 Benzocaine/Menthol (*Bkc) 18 Ea Lozenge PO 1 lozenge PRN PRN Administration Sore Throat Benzonatate 100 mg 07/12/24 17:23 07/14/24 20:31 Benzonatate 100 Mg Capsule PO 100 mg TID PRN Administration Cough Clonazepam 0.5 mg 07/13/24 11:30 07/16/24 20:51 Clonazepam (*Crx) 0.5 Mg Tablet PO 0.5 mg Q12H PRN Administration anxiety Dextrose 12.5 gm 07/12/24 17:24 Dextrose 50% 25 Gm/50 Ml Syringe IV PUSH PRN PRN Hypoglycemia Protocol Empagliflozin 25 mg 07/13/24 11:40 07/16/24 09:30 Empagliflozin 25 Mg Tablet PO 25 mg QAM TOM Administration Furosemide 40 mg 07/14/24 17:00 07/16/24 17:48 Furosemide Inj 40 Mg/4 Ml Vial IV PUSH 40 mg BID TOM Administration Glipizide 5 mg 07/14/24 09:00 07/16/24 09:30 Glipizide 5 Mg Tablet PO 5 mg DAILY TOM Administration Glucagon 1 mg 07/12/24 17:24 Glucagon For Inj 1 Mg Vial IM PRN PRN Hypoglycemia Protocol Glucose 15 gm 07/12/24 17:24 Glucose Oral Gel 15 Gm Of Glucse In 37.5 Gm Tube PO PRN PRN Hypoglycemia Protocol Guaifenesin 600 mg 07/12/24 18:00 07/16/24 20:15 Guaifenesin 12 Hr 600 Mg Tabcr PO 600 mg Q12HR TOM Administration Hydralazine HCl 25 mg 07/13/24 17:00 07/16/24 18:00 Hydralazine Hcl 25 Mg Tablet PO 25 mg BID TOM Administration Azithromycin 500 mg in 250 mls @ 250 mls/hr 07/13/24 12:00 07/16/24 12:59 Zithromax IVPB 07/18/24 23:59 250 mls/hr Q24H TOM Administration Dextrose 1,000 mls @ 100 mls/hr 07/12/24 17:24 Dextrose 5% 1,000 Ml IVPB PRN PRN Hypoglycemia Protocol Cefepime HCl 2 gm in 50 mls @ 100 mls/hr 07/12/24 20:00 07/16/24 20:12 Maxipime 2 Gm/Ns 50 Ml IVPB 100 mls/hr Q24H TOM Administration Insulin Aspart 2 - 5 units 07/13/24 08:00 07/17/24 07:45 Insulin Aspart (*Bkc) 100 Units/Ml SUB-Q Not Given TIDWM [facility] Protocol Insulin Aspart 1 - 2 units 07/12/24 21:00 07/16/24 20:42 Insulin Aspart (*Bkc) 100 Units/Ml SUB-Q Not Given HS [facility] Protocol Insulin Aspart 9 units 07/16/24 17:00 07/17/24 07:52 Insulin Aspart (*Bkc) 100 Units/Ml SUB-Q Not Given TIDWM [facility] Insulin Glargine 20 units 07/16/24 10:30 07/17/24 07:51 Insulin Glargine (*Bkc) 100 Units/Ml 0.3 units/kg (20 units) Not Given SUB-Q DAILY [facility] Isosorbide Mononitrate 20 mg 07/13/24 16:00 07/16/24 17:48 Isosorbide Mononitrate 20 Mg Tablet PO 20 mg 0900,1600 TOM Administration Metoprolol Succinate 25 mg 07/13/24 11:45 07/16/24 20:14 Metoprolol Succinate Ext Rel 25 Mg Tabcr PO 25 mg Q12HR TOM Administration Oseltamivir Phosphate 30 mg 07/17/24 20:00 Oseltamivir Phosphate 30 Mg Capsule PO 07/22/24 19:59 Q24H TOM Pantoprazole Sodium 40 mg 07/13/24 11:40 07/16/24 09:31 Pantoprazole 40 Mg Tablet PO 40 mg DAILY TOM Administration Sodium Chloride 1 spray 07/13/24 02:38 07/13/24 04:05 Saline 0.65% Maikol Soln 44 Ml Btl NASAL 1 spray Q6HR PRN Administration Congestion Tamsulosin HCl 0.4 mg 07/13/24 11:40 07/16/24 09:31 Tamsulosin Hcl 0.4 Mg Capsule PO 0.4 mg DAILY TOM Administration Ticagrelor 90 mg 07/13/24 11:40 07/17/24 07:52 Ticagrelor 90 Mg Tablet PO Not Given Q12HR TOM Vitamin D 2,000 units 07/13/24 21:00 07/16/24 20:15 Cholecalciferol 1,000 Units Tablet PO 2,000 units HS TOM Administration Radiology Results: ITS Impressions Chest X-Ray 07/12/24 14:16 IMPRESSION: 1. Airspace opacities at the lung bases, consistent with atelectasis versus pneumonia. 2. Small pleural effusions. 3. Cardiomegaly. Chest CT 07/16/24 07:14 Impression: Moderate to large bilateral pleural effusions with bibasilar atelectatic change and probable mild pulmonary edema. Suspected underlying mild emphysema. Small amount of upper abdominal ascites. Mild mediastinal lymphadenopathy, nonspecific, unchanged. Labs Labs: Laboratory Results - last 24 hr 07/16/24 07/16/24 07/16/24 04:27 11:01 16:09 WBC RBC Hgb Hct MCV MCH MCHC RDW Plt Count MPV Immature Gran % (Auto) Neut % (Auto) Lymph % (Auto) Page % (Auto) Eos % (Auto) Baso % (Auto) Lymph # (Auto) Page # (Auto) Eos # (Auto) Baso # (Auto) Abs Immat Gran (auto) Absolute Neuts (auto) Absolute Nucleated RBC Nucleated RBC % Platelet Estimate Large Platelets Anisocytosis [place] Cells Schistocytes Sodium Potassium Chloride Carbon Dioxide Anion Gap BUN Creatinine Estim Creat Clear Calc Estimated GFR Glucose POC Capillary Glucose 310 H 390 H Calcium Magnesium NT-Pro-B Natriuret Pep > 40772 H 07/16/24 07/16/24 07/17/24 20:15 23:22 04:54 WBC 13.4 H RBC 3.20 L Hgb 9.1 L Hct 28.9 L MCV 90.3 MCH 28.4 MCHC 31.5 L RDW 15.5 H Plt Count 149 L MPV 11.9 H Immature Gran % (Auto) 0.9 H Neut % (Auto) 92.1 H Lymph % (Auto) 1.6 L Page % (Auto) 5.3 Eos % (Auto) 0.0 Baso % (Auto) 0.1 L Lymph # (Auto) 0.22 L Page # (Auto) 0.7 H Eos # (Auto) 0.0 Baso # (Auto) 0.0 Abs Immat Gran (auto) 0.12 H Absolute Neuts (auto) 12.4 H Absolute Nucleated RBC 0.000 Nucleated RBC % 0.0 Platelet Estimate Slightly decreased Large Platelets Present Anisocytosis 1+ [place] Cells 1+ Schistocytes None seen Sodium 129 L Potassium 4.2 Chloride 94 L Carbon Dioxide 20 L Anion Gap 15 H BUN 96 H D Creatinine 3.11 H Estim Creat Clear Calc 16 Estimated GFR 19 L Glucose 137 H POC Capillary Glucose 459 H 312 H Calcium 8.2 L Magnesium 2.3 NT-Pro-B Natriuret Pep 07/17/24 07:22 WBC RBC Hgb Hct MCV MCH MCHC RDW Plt Count MPV Immature Gran % (Auto) Neut % (Auto) Lymph % (Auto) [place] % (Auto) Eos % (Auto) Baso % (Auto) Lymph # (Auto) Page # (Auto) Eos # (Auto) Baso # (Auto) Abs Immat Gran (auto) Absolute Neuts (auto) Absolute Nucleated RBC Nucleated RBC % Platelet Estimate Large Platelets Anisocytosis [place] Cells Schistocytes Sodium Potassium Chloride Carbon Dioxide Anion Gap BUN Creatinine Estim Creat Clear Calc Estimated GFR Glucose POC Capillary Glucose 97 Calcium Magnesium NT-Pro-B Natriuret Pep
--- NOTE | 2024-07-17 08:54 | P.PNIM_ITS ---
Progress Note: A&P Assessment and Plan (1) Acute on chronic combined systolic and diastolic heart failure: Code(s): I50.43 - Acute on chronic combined systolic (congestive) and diastolic (congestive) heart failure Status: Acute (2) CHF exacerbation: Code(s): I50.9 - Heart failure, unspecified Status: Acute (3) Elevated troponin: Code(s): R79.89 - Other specified abnormal findings of blood chemistry Status: Acute (4) Diabetes mellitus: Qualifiers: Diabetes mellitus complication status: with other specified complication Diabetes mellitus extermination inspector insulin use: without extermination inspector use Diabetes mellitus type: type 2 Qualified Code(s): E11.69 - Type 2 diabetes mellitus with other specified complication Code(s): E11.9 - Type 2 diabetes mellitus without complications Status: Chronic (5) Protein-calorie malnutrition, mild: Code(s): E44.1 - Mild protein-calorie malnutrition Status: Acute (6) Hhyge-[id number] kidney injury: Code(s): N17.9 - Acute kidney failure, unspecified; N18.9 - Chronic kidney disease, unspecified Status: Acute (7) Influenza: Code(s): J11.1 - Influenza due to unidentified influenza virus with other respiratory manifestations Status: Acute (8) Acute and chronic respiratory failure with hypercapnia: Code(s): J96.22 - Acute and chronic respiratory failure with hypercapnia Status: Acute (9) COPD exacerbation: Code(s): J44.1 - Chronic obstructive pulmonary disease with (acute) exacerbation Status: Acute Plan Pneumonia: Qualifiers: Laterality: bilateral Lung location: lower lobe of lung Pneumonia type: due to unspecified organism Qualified Code(s): J18.9 - Pneumonia, unspecified organism Code(s): J18.9 - Pneumonia, unspecified organism Status: Acute Assessment and Plan: - did not meet SIRS criteria, however lactic elevated at 2.4. Blood cultures obtained on 07/12, follow. Plan for 2L bolus. trend lactic down. - CXR: 1. Airspace opacities at the lung bases, consistent with atelectasis versus pneumonia. 2. Small pleural effusions. 3. Cardiomegaly. Possible community-acquired pneumonia due to viral infection and better infection Started on ceftriaxone and azithromycin on to 6, exchanged to cefepime, azithromycin, and vancomycin on 07/12 and Tamiflu MRSA negative on cefepime and azithromycin CT: . Moderate to large bilateral pleural effusions with bibasilar atelectatic change and probable mild pulmonary edema.Suspected underlying mild emphysema. Consult orthodontic technician for evaluation treatment Appreciate orthodontic technician consultation Pleural effusion Moderate to large bilateral pleural effusions with bibasilar atelectatic change and probable mild pulmonary edema. Patient need thoracentesis for treatment and diagnosis Will hold Brilinta p.o.if ok for event marketing specialist Influenza: Code(s): J11.1 - Influenza due to unidentified influenza virus with other respiratory manifestations Status: Acute Assessment and Plan: tested positive for influenza A on 07/11 - CXR c/f PNA - Tamiflu 75 mg BID, symptoms worsened/developed cough in the last 2 days Acute on chronic obstructive pulmonary disease: Qualifiers: COPD type: unspecified COPD Qualified Code(s): J44.9 - Chronic obstructive pulmonary disease, unspecified Code(s): J44.9 - Chronic obstructive pulmonary disease, unspecified Status: Acute Assessment and Plan: COPD exacerbation due to pneumonia and influenza effect Continue nebulizers Continue O2 therapy to keep pulse ox above 92 Elevated troponin: Code(s): R79.89 - Other specified abnormal findings of blood chemistry Status: Acute Assessment and Plan: - EKG, initial: Sinus rhythm, rate 82, left atrial enlargement, ST-T-wave abnormality in diffuse leads consider ischemia, baseline artifact. When compared to EKG done on 06/25/2024, there are no significant changes. - Troponin: 0.052 (previously 0.035 on 07/03/2024), 3 and 6 hour ordered - ASA 324 given, continue Brilinta 90 mg q.12 hours p.o. -echo, previous (02/2024): He systolic function moderately reduced, estimated EF 40-45%, grade 3 diastolic dysfunction. See report for details. - cardiac catheterization, previous, 06/13/23: Dr. 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 LM 70-80%, LAD diffuse disease with severe stenosis in apical segment, LCx prox 80%, RCA with diffuse disease with severe stenosis in mid PDA; PCI to prox LCx and PCI to LM. 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 IV push Patient does not have interest of life vest Chronic kidney disease, stage 4 (severe): Code(s): N18.4 - Chronic kidney disease, stage 4 (severe) Status: Chronic Assessment and Plan: - creatinine 2.91 and GFR 21, previously 2.57 and GFR 24 on Patient received fluid resuscitation 2 L bolus -> 125 mL/hr x1L. monitor toleration, hx of HF. Creatinine is trending up slowly consult auricular therapist for evaluation treatment Type 2 diabetes mellitus: Qualifiers: Diabetes mellitus nursing home insulin use: without extermination inspector use Diabetes mellitus complication status: with kidney complications Diabetes mellitus complication detail: with chronic kidney disease Chronic kidney disease stage: stage 4 (severe) Qualified Code(s): E11.22 - Type 2 diabetes mellitus with diabetic chronic kidney disease; N18.4 - Chronic kidney disease, stage 4 (severe) Code(s): E11.9 - Type 2 diabetes mellitus without complications Status: Chronic Assessment and Plan: - hypoglycemia protocol - POC blood glucose ACHS - home medication: Hold Jardiance, glipizide. A1C 7.5% on 06/25/2024 Titrate insulin for glucose control Hypertension: Qualifiers: Hypertension type: secondary to other renal disorders Qualified Code(s): I15.1 - Hypertension secondary to other renal disorders Code(s): I10 - Essential (primary) hypertension Status: Chronic Assessment and Plan: Blood pressure is controlled Continue metoprolol, Imdur, hydralazine, Lasix, amlodipine Patient still has significant dyspnea and cough, continue inpatient treatment Diet: Heart healthy GI Prophylaxis: Not currently indicated DVT Prophylaxis: SCDs Lines: Peripheral Consult Code Status: DNR Subjective Date/time seen: 07/17/24 08:54 Interval history: I saw and examined patient today. Patient feels tired, patient feels dyspnea since improving slowly. Patient still has a cough with scant phlegm. Patient denies chest pain abdomen pain nausea vomiting. Patient has no appetite Exam Narrative: GENERAL: Ill-appearing, in no acute distress. Well-nourished. - EYES: EOMI. Anicteric. - HENT: Moist mucous membranes. - LUNGS: Crackles bilateral base, but i mproving. Tachypnea, scattered wheezing, distant breath sounds - CARDIOVASCULAR: Regular rate and rhyth m. No murmur. No JVD. - ABDOMEN: Soft, non-tender and non-dist ended. No palpable masses. - EXTREMITIES: No edema. Peripheral puls es 2+. Non-tender. - NEUROLOGIC: No focal neurological defi cits. CN II-XII grossly intact. General weakness - PSYCHIATRIC: Awake, Alert and oriented x 3. Appropriate mood and affect. - SKIN: No rashes or lesions. Warm. - LYMPH: No cervical lymphadenopathy. Objective Data Vital Signs Vital Signs: Vital Signs - 24 hr 07/16/24 09:30 07/16/24 09:44 07/16/24 09:44 Temperature Pulse Rate 82 83 Respiratory Rate 18 Blood Pressure Pulse Oximetry 94 Oxygen Delivery Nasal Cannula Oxygen Flow Rate 4 Fraction of Inspired Oxygen 07/16/24 09:54 07/16/24 10:00 07/16/24 12:00 Temperature Pulse Rate 85 82 Respiratory Rate 18 Blood Pressure Pulse Oximetry 96 Oxygen Delivery Nasal Cannula Oxygen Flow Rate 4 Fraction of Inspired Oxygen 07/16/24 12:00 07/16/24 12:50 07/16/24 14:00 Temperature 97.7 F Pulse Rate 82 85 81 Respiratory Rate 22 H Blood Pressure 119/54 L Pulse Oximetry 95 Oxygen Delivery Oxygen Flow Rate Fraction of Inspired Oxygen 07/16/24 16:00 07/16/24 16:00 07/16/24 16:06 Temperature 97.3 F L Pulse Rate 78 78 Respiratory Rate 26 H 24 H Blood Pressure 108/48 L Pulse Oximetry 95 96 Oxygen Delivery Nasal Cannula Oxygen Flow Rate 4 Fraction of Inspired Oxygen 07/16/24 16:16 07/16/24 18:00 07/16/24 19:25 Temperature Pulse Rate 81 84 Respiratory Rate 20 Blood Pressure Pulse Oximetry 96 Oxygen Delivery Nasal Cannula Oxygen Flow Rate 4 Fraction of Inspired Oxygen 07/16/24 19:37 07/16/24 19:37 07/16/24 19:48 Temperature Pulse Rate 84 85 Respiratory Rate 20 20 Blood Pressure Pulse Oximetry 94 Oxygen Delivery Nasal Cannula Oxygen Flow Rate 4 Fraction of Inspired Oxygen 36 07/16/24 20:00 07/16/24 20:14 07/16/24 20:17 Temperature 97.6 F Pulse Rate 88 87 87 Respiratory Rate 23 H Blood Pressure 115/47 L Pulse Oximetry 94 Oxygen Delivery Oxygen Flow Rate Fraction of Inspired Oxygen 07/16/24 22:00 07/16/24 23:17 07/16/24 23:49 Temperature 97.6 F Pulse Rate 87 86 Respiratory Rate 23 H Blood Pressure 125/55 L Pulse Oximetry 94 93 Oxygen Delivery Nasal Cannula Oxygen Flow Rate 4 Fraction of Inspired Oxygen 07/17/24 00:00 07/17/24 01:58 07/17/24 02:00 Temperature Pulse Rate 86 84 84 Respiratory Rate 20 Blood Pressure Pulse Oximetry Oxygen Delivery Oxygen Flow Rate Fraction of Inspired Oxygen 07/17/24 02:11 07/17/24 04:00 07/17/24 04:00 Temperature Pulse Rate 85 85 Respiratory Rate 20 Blood Pressure Pulse Oximetry 95 Oxygen Delivery Nasal Cannula Oxygen Flow Rate 4 Fraction of Inspired Oxygen 07/17/24 04:22 07/17/24 06:46 07/17/24 07:51 Temperature 97.5 F L Pulse Rate 85 85 Respiratory Rate 23 H Blood Pressure 127/57 L Pulse Oximetry 93 92 Oxygen Delivery Nasal Cannula Oxygen Flow Rate 4 Fraction of Inspired Oxygen 07/17/24 07:51 07/17/24 08:14 Temperature 96.6 F L Pulse Rate 86 86 Respiratory Rate 16 24 H Blood Pressure 114/57 L Pulse Oximetry 93 Oxygen Delivery Oxygen Flow Rate Fraction of Inspired Oxygen Intake/Output Intake/Output: Intake & Output 07/14/24 07/15/24 07/16/24 07/17/24 23:59 23:59 23:59 23:59 Intake Total 1450 1780 2819 2207 Output Total 1251 1500 1050 500 Balance 749 737 8646 1707 Meds/Results Medications: Active Medications Generic Name Dose Route Start Last Admin Trade Name Freq PRN Reason Stop Dose Admin Acetaminophen 650 mg 07/12/24 16:33 07/14/24 20:29 Acetaminophen 325 Mg Tablet PO 650 mg Q4H PRN Administration Mild Pain (1-3) or Fever Albuterol 2 puff 07/13/24 11:30 07/15/24 11:10 Albuterol Sulfate (*Sp) Aerosol 1 Puff INHALATION 2 puff TID PRN Administration Shortness Of Breath Or Wheezing Albuterol/Ipratropium 3 ml 07/12/24 20:00 07/17/24 07:51 Ipratropium 0.5 Mg/Albuterol Sulfate 2.5 Mg Ampul.Neb 3 Ml INHALATION 3 ml Q6HRT TOM Administration Amlodipine Besylate 10 mg 07/13/24 11:40 07/16/24 09:30 Amlodipine Besylate 10 Mg Tablet PO 10 mg DAILY TOM Administration Aspirin 81 mg 07/13/24 11:40 07/16/24 09:30 Aspirin 81 Mg Enteric Tablet PO 81 mg DAILY TOM Administration Atorvastatin Calcium 40 mg 07/13/24 11:40 07/16/24 09:30 Atorvastatin 40 Mg Tablet PO 40 mg DAILY TOM Administration Benzocaine 1 lozenge 07/12/24 17:23 07/13/24 20:31 Benzocaine/Menthol (*Bkc) 18 Ea Lozenge PO 1 lozenge PRN PRN Administration Sore Throat Benzonatate 100 mg 07/12/24 17:23 07/14/24 20:31 Benzonatate 100 Mg Capsule PO 100 mg TID PRN Administration Cough Clonazepam 0.5 mg 07/13/24 11:30 07/16/24 20:51 Clonazepam (*Crx) 0.5 Mg Tablet PO 0.5 mg Q12H PRN Administration anxiety Dextrose 12.5 gm 07/12/24 17:24 Dextrose 50% 25 Gm/50 Ml Syringe IV PUSH PRN PRN Hypoglycemia Protocol Empagliflozin 25 mg 07/13/24 11:40 07/16/24 09:30 Empagliflozin 25 Mg Tablet PO 25 mg QAM TOM Administration Furosemide 40 mg 07/14/24 17:00 07/16/24 17:48 Furosemide Inj 40 Mg/4 Ml Vial IV PUSH 40 mg BID TOM Administration Glipizide 5 mg 07/14/24 09:00 07/16/24 09:30 Glipizide 5 Mg Tablet PO 5 mg DAILY TOM Administration Glucagon 1 mg 07/12/24 17:24 Glucagon For Inj 1 Mg Vial IM PRN PRN Hypoglycemia Protocol Glucose 15 gm 07/12/24 17:24 Glucose Oral Gel 15 Gm Of Glucse In 37.5 Gm Tube PO PRN PRN Hypoglycemia Protocol Guaifenesin 600 mg 07/12/24 18:00 07/16/24 20:15 Guaifenesin 12 Hr 600 Mg Tabcr PO 600 mg Q12HR TOM Administration Hydralazine HCl 25 mg 07/13/24 17:00 07/16/24 18:00 Hydralazine Hcl 25 Mg Tablet PO 25 mg BID TOM Administration Azithromycin 500 mg in 250 mls @ 250 mls/hr 07/13/24 12:00 07/16/24 12:59 Zithromax IVPB 07/18/24 23:59 250 mls/hr Q24H TOM Administration Dextrose 1,000 mls @ 100 mls/hr 07/12/24 17:24 Dextrose 5% 1,000 Ml IVPB PRN PRN Hypoglycemia Protocol Cefepime HCl 2 gm in 50 mls @ 100 mls/hr 07/12/24 20:00 07/16/24 20:12 Maxipime 2 Gm/Ns 50 Ml IVPB 100 mls/hr Q24H TOM Administration Insulin Aspart 2 - 5 units 07/13/24 08:00 07/17/24 07:45 Insulin Aspart (*Bkc) 100 Units/Ml SUB-Q Not Given TIDWM [facility] Protocol Insulin Aspart 1 - 2 units 07/12/24 21:00 07/16/24 20:42 Insulin Aspart (*Bkc) 100 Units/Ml SUB-Q Not Given HS [facility] Protocol Insulin Aspart 9 units 07/16/24 17:00 07/17/24 07:52 Insulin Aspart (*Bkc) 100 Units/Ml SUB-Q Not Given TIDWM [facility] Insulin Glargine 20 units 07/16/24 10:30 07/17/24 07:51 Insulin Glargine (*Bkc) 100 Units/Ml 0.3 units/kg (20 units) Not Given SUB-Q DAILY [facility] Isosorbide Mononitrate 20 mg 07/13/24 16:00 07/16/24 17:48 Isosorbide Mononitrate 20 Mg Tablet PO 20 mg 0900,1600 TOM Administration Metoprolol Succinate 25 mg 07/13/24 11:45 07/16/24 20:14 Metoprolol Succinate Ext Rel 25 Mg Tabcr PO 25 mg Q12HR TOM Administration Oseltamivir Phosphate 30 mg 07/17/24 20:00 Oseltamivir Phosphate 30 Mg Capsule PO 07/22/24 19:59 Q24H TOM Pantoprazole Sodium 40 mg 07/13/24 11:40 07/16/24 09:31 Pantoprazole 40 Mg Tablet PO 40 mg DAILY TOM Administration Sodium Chloride 1 spray 07/13/24 02:38 07/13/24 04:05 Saline 0.65% Maikol Soln 44 Ml Btl NASAL 1 spray Q6HR PRN Administration Congestion Tamsulosin HCl 0.4 mg 07/13/24 11:40 07/16/24 09:31 Tamsulosin Hcl 0.4 Mg Capsule PO 0.4 mg DAILY TOM Administration Ticagrelor 90 mg 07/13/24 11:40 07/17/24 07:52 Ticagrelor 90 Mg Tablet PO Not Given Q12HR TOM Vitamin D 2,000 units 07/13/24 21:00 07/16/24 20:15 Cholecalciferol 1,000 Units Tablet PO 2,000 units HS TOM Administration Radiology Results: ITS Impressions Chest X-Ray 07/12/24 14:16 IMPRESSION: 1. Airspace opacities at the lung bases, consistent with atelectasis versus pneumonia. 2. Small pleural effusions. 3. Cardiomegaly. Chest CT 07/16/24 07:14 Impression: Moderate to large bilateral pleural effusions with bibasilar atelectatic change and probable mild pulmonary edema. Suspected underlying mild emphysema. Small amount of upper abdominal ascites. Mild mediastinal lymphadenopathy, nonspecific, unchanged. Labs Labs: Laboratory Results - last 24 hr 07/16/24 07/16/24 07/16/24 04:27 11:01 16:09 WBC RBC Hgb Hct MCV MCH MCHC RDW Plt Count MPV Immature Gran % (Auto) Neut % (Auto) Lymph % (Auto) [place] % (Auto) Eos % (Auto) Baso % (Auto) Lymph # (Auto) [place] # (Auto) Eos # (Auto) Baso # (Auto) Abs Immat Gran (auto) Absolute Neuts (auto) Absolute Nucleated RBC Nucleated RBC % Platelet Estimate Large Platelets Anisocytosis [place] Cells Schistocytes Sodium Potassium Chloride Carbon Dioxide Anion Gap BUN Creatinine Estim Creat Clear Calc Estimated GFR Glucose POC Capillary Glucose 310 H 390 H Calcium Magnesium NT-Pro-B Natriuret Pep > 96316 H 07/16/24 07/16/24 07/17/24 20:15 23:22 04:54 WBC 13.4 H RBC 3.20 L Hgb 9.1 L Hct 28.9 L MCV 90.3 MCH 28.4 MCHC 31.5 L RDW 15.5 H Plt Count 149 L MPV 11.9 H Immature Gran % (Auto) 0.9 H Neut % (Auto) 92.1 H Lymph % (Auto) 1.6 L [place] % (Auto) 5.3 Eos % (Auto) 0.0 Baso % (Auto) 0.1 L Lymph # (Auto) 0.22 L [place] # (Auto) 0.7 H Eos # (Auto) 0.0 Baso # (Auto) 0.0 Abs Immat Gran (auto) 0.12 H Absolute Neuts (auto) 12.4 H Absolute Nucleated RBC 0.000 Nucleated RBC % 0.0 Platelet Estimate Slightly decreased Large Platelets Present Anisocytosis 1+ Radha Cells 1+ Schistocytes None seen Sodium 129 L Potassium 4.2 Chloride 94 L Carbon Dioxide 20 L Anion Gap 15 H BUN 96 H D Creatinine 3.11 H Estim Creat Clear Calc 16 Estimated GFR 19 L Glucose 137 H POC Capillary Glucose 459 H 312 H Calcium 8.2 L Magnesium 2.3 NT-Pro-B Natriuret Pep 07/17/24 07:22 WBC RBC Hgb Hct MCV MCH MCHC RDW Plt Count MPV Immature Gran % (Auto) Neut % (Auto) Lymph % (Auto) [place] % (Auto) Eos % (Auto) Baso % (Auto) Lymph # (Auto) [place] # (Auto) Eos # (Auto) Baso # (Auto) Abs Immat Gran (auto) Absolute Neuts (auto) Absolute Nucleated RBC Nucleated RBC % Platelet Estimate Large Platelets Anisocytosis Radha Cells Schistocytes Sodium Potassium Chloride Carbon Dioxide Anion Gap BUN Creatinine Estim Creat Clear Calc Estimated GFR Glucose POC Capillary Glucose 97 Calcium Magnesium NT-Pro-B Natriuret Pep
[2024-07-17] MEDS: ATORVASTATIN 40 MG TABLET PO (09:12)
[2024-07-17] MEDS: TAMSULOSIN HCL 0.4 MG CAPSULE PO (09:12)
[2024-07-17] MEDS: ASPIRIN 81 MG ENTERIC TABLET PO (09:12)
[2024-07-17] MEDS: PANTOPRAZOLE 40 MG TABLET PO (09:12)
[2024-07-17] MEDS: glipiZIDE 5 MG TABLET PO (09:12)
[2024-07-17] MEDS: EMPAGLIFLOZIN 25 MG TABLET PO (09:12)
[2024-07-17] MEDS: amLODIPine BESYLATE 10 MG TABLET PO (09:12)
[2024-07-17] MEDS: hydrALAZINE HCL 25 MG TABLET PO ×2 (09:12→16:24)
[2024-07-17] MEDS: METOPROLOL SUCCINATE EXT REL 25 MG TABCR PO ×2 (09:12→21:35)
[2024-07-17] MEDS: guaiFENesin 12 HR 600 MG TABCR PO ×2 (09:13→21:36)
[2024-07-17] MEDS: FUROSEMIDE INJ 40 MG/4 ML VIAL IV PUSH ×2 (09:13→16:24)
[2024-07-17] MEDS: ISOSORBIDE MONONITRATE 20 MG TABLET PO ×2 (09:21→16:25)
--- NOTE | 2024-07-17 11:02 | PM.PNPUL ---
Progress Note: A&P Assessment and Plan (1) Influenza: Code(s): J11.1 - Influenza due to unidentified influenza virus with other respiratory manifestations Status: Acute Assessment and Plan: Patient tested influenza positive on 07/12/2024. 07/16/2023: Currently the patient says he is breathing better than when he arrived to the hospital. He has 20% back to his normal. He has minimal cough with no phlegm and no hemoptysis. He has dyspnea on exertion and has not done any walking in the room. He is afebrile. White blood cell count 11.2, creatinine 2.98, BUN 84. His weight today is 66 kg with an admission weight of 55.9. He diuresed 20 mL yesterday and cumulative he is +4.[address] scan of the chest which shows large bilateral effusions right greater than left, adjacent compressive atelectasis, no focal consolidations, small amount of ascites. Currently on 4 L with saturation 95%. Plan: Continue Tamiflu at 30 mg Q 24 hours. today is day 5. Given his severe disease would recommend a total of 10 days of Tamiflu. Systemic steroids have been discontinued. He is being treated empirically for bacterial infection with azithromycin day 5 of 7 and cefepime day 5 of 7. Blood cultures are negative. 07/17/2023: Patient states his breathing is the same as yesterday. He denies fever, chills, cough, phlegm or hemoptysis. Currently is on 4 L nasal cannula saturations 93%. His white blood cell count is 13.4, creatinine is 3.11, BUN is 96. yesterday he was positive 1.7 L and since admission he is positive 7.1 L. His weight has increased from 55.9 on admission to 69.1. Plan: Patient CT scan did not show multifocal ground-glass infiltrates consistent with severe influenza infection. Continue Tamiflu 30 Q 24 hours given his renal insufficiency. Today is day 6 of 10. Empirically being treated for bacterial infection with azithromycin and cefepime both day 6 of 7. Oxygenation is stable. Discussed with Dr. Kim, will follow with you. (2) Congestive heart failure: Qualifiers: Heart failure chronicity: acute Heart failure type: unspecified Qualified Code(s): I50.9 - Heart failure, unspecified Code(s): I50.9 - Heart failure, unspecified Status: Acute Assessment and Plan: Patient with a history of coronary artery disease status post PCI circumflex and left main on ticagrelor, congestive heart failure with an LVEF of 40-45%, grade 3 diastolic dysfunction, aortic stenosis with a valve area of 1.1, mean gradient 5 on echocardiogram from 02/20/2024. Patient has chronic renal insufficiency with baseline creatinine in June of 2.2-2.3. Admitted now with a creatinine of 2.91 and with attempted diuresis with IV Lasix his creatinine today is 2.98. CT scan today shows bilateral large pleural effusions right greater than left, congestion and small amount of ascites. BNP has remained greater than 30,000 since 02/28/2024, 06/19/2024, 07/02/2024 and 07/12/2024. Repeat today is greater than 30,000. Plan: patient remains fluid overloaded. Diuresis per hospitalist. patient would benefit from an ultrasound-guided thoracentesis on the right to help his breathing mechanics and hypoxemia. Wait time for brilenta is 5 days. Patient received a dose on 07/16 at 9:31 a.m.. Discussed with hospitalist who will determine if this medicine can be stopped safely. Echocardiogram ordered echocardiogram with LVEF 25-30%, abnormal diastolic function, moderate aortic stenosis with a valve area 1.10, normal RV size and function, normal right atrial size, PASP 36. 2/11 Patient with continued shortness of breath. Although the patient has influenza the CT scan of the visualized portions of the lungs did not show diffuse ground-glass infiltrates and I suspect the majority of patient's symptoms are related to fluid overload with large bilateral pleural effusions and chronic renal failure making diuresis difficult. Plan: Patient is on Lasix 40 IV b.i.d per hospitalist and hydro pneumatic tester. Unfortunately he is not able to be diuresed with creatinine of 3.11. Hospitalist will consult Nephrology. Brilenta has been held with last dose 07/16/2024 at 8:15 p.m. this will need to be held for 5 days prior to thoracentesis. (3) COPD (chronic obstructive pulmonary disease): Qualifiers: COPD type: unspecified COPD Qualified Code(s): J44.9 - Chronic obstructive pulmonary disease, unspecified Code(s): J44.9 - Chronic obstructive pulmonary disease, unspecified Status: Acute Assessment and Plan: regarding his COPD, On 12/13/2023: Patient is a 23 pack year history of tobacco use quit in 2022.? He was exposed to secondhand smoke from his father and from his 1st from 1966 and 1983 and his 2nd from [id number].? PFTs from pulmonary outpatient visit note on 07/27/2023 demonstrate an FEV1 of 40% predicted.? Total lung capacity 57% predicted and a DLCO of 34% predicted.?More recent PFTs on 10/13/2023 with a normal FEV1 at 71%, ratio 64%, no bronchodilator response, normal lung volumes and moderately decreased DLCO when adjusted for alveolar volume.? There was significant increase in the FVC, FEV1, total lung capacity, residual volume and diffusing capacity when compared to 07/27/2023. Room air sats were 95%.?? Currently has no activity limitations due to shortness of breath but he does have limitations due to leg pain.? He has peripheral vascular disease.?? He denies cough or chronic phlegm production.?? Previous note says he has an alpha 1 anti trypsin level of 248 on 06/18/2019. I prescribe Stiolto Respimat. previous overnight oximetry on room air on 10/06/2023 with hypoxemia and I prescribed 2 L which was never arranged and I reordered this. I recommended vaccines including influenza, COVID and RSV and at this time he was unwilling. Patient is on 2 L nasal cannula. ABG on 06/19/2024 7.48/36/71. VBG on 07/02/2024 7.36/48/52. No evidence of prior hypercarbic respiratory failure. 07/16/24: Currently the patient has influenza pneumonia. He has been treated for COPD exacerbation with bronchodilators and steroids. Currently patient is on 4 L nasal cannula saturations 96%. Plan: I do not feel there is an active COPD exacerbation at this time. I have discontinue the steroids as he has influenza pneumonia. Continue DuoNebs q.6 hours. Goal saturation 90-94%, Wean oxygen accordingly.. 07/17: No wheezing on exam. No evidence of COPD exacerbation. Plan: Continue DuoNebs q.6 hours goal saturation 90-94% and wean oxygen accordingly. Subjective Date/time seen: 07/17/24 11:02 Interval history: 07/16/2024: This is a new pulmonary consult for influenza pneumonia with hypoxemic respiratory failure. 79-year-old with a history of coronary artery disease: [facility] 06/13/[address] Pablo at [facility]: [employer] of right common iliac artery. LM 70-80%, LAD diffuse disease with severe stenosis in apical segment, LCx prox 80%, RCA with diffuse disease with severe stenosis in mid PDA; PCI to prox LCx and PCI to LM, congestive heart failure with decreased LVEF and diastolic dysfunction, aortic stenosis, GERD, hyperlipidemia, DVT, diabetes, hypertension, renal artery stenosis, and COPD.. 07/16/2024: This is a new pulmonary consult for influenza a and respiratory failure. Patient followed in the Pulmonary Clinic for COPD and last seen on 12/13/2023. Patient was a no-show on 07/02/2024 Patient carries a history of COPD with most recent PFTs? with most recent PFTs on 10/13/2023 consistent with small airways disease.? regarding his COPD, On 12/13/2023: Patient is a 23 pack year history of tobacco use quit in 2022.? He was exposed to secondhand smoke from his father and from his 1st from 1966 and 1983 and his 2nd from [id number].? PFTs from pulmonary outpatient visit note on 07/27/2023 demonstrate an FEV1 of 40% predicted.? Total lung capacity 57% predicted and a DLCO of 34% predicted.?More recent PFTs on 10/13/2023 with a normal FEV1 at 71%, ratio 64%, no bronchodilator response, normal lung volumes and moderately decreased DLCO when adjusted for alveolar volume.? There was significant increase in the FVC, FEV1, total lung capacity, residual volume and diffusing capacity when compared to 07/27/2023. Room air sats were 95%.?? Currently has no activity limitations due to shortness of breath but he does have limitations due to leg pain.? He has peripheral vascular disease.?? He denies cough or chronic phlegm production.?? Previous note says he has an alpha 1 anti trypsin level of 248 on 06/18/2019. I prescribe Stiolto Respimat. previous overnight oximetry on room air on 10/06/2023 with hypoxemia and I prescribed 2 L which was never arranged and I reordered this. I recommended vaccines including influenza, COVID and RSV and at this time he was unwilling. Patient is on 2 L nasal cannula. 06/19/2024 through 06/24/2024:? Admitted with 2 weeks worsening dyspnea on exertion, orthopnea runny nose and nonproductive cough. ?BNP greater than 30,000. Required 8 L. CTA negative for pulmonary embolism with bibasilar atelectasis versus pneumonia and large bilateral pleural effusions.? He was treated with IV Lasix, bronchodilators, systemic steroids, ceftriaxone and azithromycin.? Weight decreased from 55.7 kg to 51.4 kg.? Discharged on room air, Lasix 40 a day (increased from 20 Q day), albuterol p.r.n. admission weight 55.7 kg. Discharge weight 51.4 kg. 07/03/24 through 07/03/2024: Admitted to [facility] with shortness of breath. BNP greater than 30,000, VBG 7.36/48. patient treated with BiPAP, steroids, DuoNebs, and IV Lasix. Admission weight 58 kg. Discharge weight 58.3 kg. Discharged on Lasix 80 mg a day, cefdinir 300, doxycycline 100 albuterol nebulizer and inhaler p.r.n. 07/12/2024: Patient presented to the emergency department with weakness and cough. He had worsening shortness of breath for the last few days, cough x2 days, weakness and bilateral swelling of the lower extremities. Blood pressure 127/53, heart rate 83, respirations 19, on 2 L nasal cannula saturations 95%. He had no wheezing. White blood cell count 11.0, eosinophils 0.0, creatinine 2.91, BUN 61, serum bicarbonate 23, BNP greater than 30,000, influenza a RT PCR positive. Patient started on Tamiflu, ceftriaxone, azithromycin and vancomycin. he was given prednisone 40 mg on 07/13 and 07/14. patient was changed to Solu-Medrol on 07/14/2023. 07/16/2023: Currently the patient says he is breathing better than when he arrived to the hospital. He has 20% back to his normal. He has minimal cough with no phlegm and no hemoptysis. He has dyspnea on exertion and has not done any walking in the room. He is afebrile. White blood cell count 11.2, creatinine 2.98, BUN 84. His weight today is 66 kg with an admission weight of 55.9. He diuresed 20 mL yesterday and cumulative he is +4.[address] scan of the chest which shows large bilateral effusions right greater than left, adjacent compressive atelectasis, no focal consolidations, small amount of ascites. 07/17/2023: Patient states his breathing is the same as yesterday. He denies fever, chills, cough, phlegm or hemoptysis. Currently is on 4 L nasal cannula saturations 93%. His white blood cell count is 13.4, creatinine is 3.11, BUN is 96. yesterday he was positive 1.7 L and since admission he is positive 7.1 L. His weight has increased from 55.9 on admission to 69.1. DATA: 07/16/24: Echo Summary 1. Definity contrast administered improved wall motion interpretation. 2. Left ventricular chamber dimension is moderately enlarged. 3. There is moderate concentric increased left ventricular wall thickness. 4. Left ventricular systolic function is severely globally reduced, estimated at 25-30%. 5. The left ventricular diastolic function is abnormal. 6. E/e' 31 is significantly elevated. 7. RV function appears visually to be preserved, however, right ventricular systolic function is reduced based on abnormal TAPSE 1.2 cm. 8. Left atrial chamber dimension is mildly enlarged. 9. There is moderate aortic valve sclerosis. 10. There is moderate aortic valve stenosis with a peak velocity of 144.98 cm/s, mean gradient of 5 mmHg, and aortic valve area of 1.10 cm2. The dimensionless index is 0.51 which is not severe aortic valve stenosis in setting of cardiomyopathy. 11. The mitral valve has moderately calcified annulus. 12. There is mild tricuspid valve regurgitation. 13. No pulmonary hypertension, estimated pulmonary arterial systolic pressure is 36 mmHg. 14. Dilated inferior vena cava with <50% collapse upon inspiration consistent with significantly elevated right atrial pressure, 15 mmHg. 15. Large pleural effusion. Right Ventricle RV function appears visually to be preserved, however, right ventricular systolic function is reduced based on abnormal TAPSE 1.2 cm. Right ventricular chamber dimension is normal. Right Atria Right atrial chamber dimension is normal. 07/16/24: CT Scan of the Chest without Contrast: Clinical Indication: Shortness of breath Technique: Contiguous sections were acquired throughout the chest without intravenous contrast. Dose reduction technique was used on this scan by utilizing automated exposure control and iterative reconstruction technique. The dose-length product (DLP) was 286.97 mGy-cm. COMPARISON: 06/19/2024 Findings: Multiple bilateral enlarged mediastinal lymph nodes are similar to prior exam. There are extensive atherosclerotic calcifications of the aorta and coronary arteries. No pericardial effusion. Moderate to large bilateral pleural effusions are similar to prior exam, with bibasilar atelectatic change. There is mild emphysema and probable mild interstitial pulmonary edema. Images through the upper abdomen reveal small amount of upper abdominal ascites. Impression: Moderate to large bilateral pleural effusions with bibasilar atelectatic change and probable mild pulmonary edema. Suspected underlying mild emphysema. Small amount of upper abdominal ascites. Mild mediastinal lymphadenopathy, nonspecific, unchanged. 02/20/2024: Summary 1. Complete two-dimensional, color flow and Doppler transthoracic echocardiogram is performed. 2. Left ventricular chamber dimension is normal. 3. Left ventricular systolic function is moderately reduced, estimated at 40-45%. 4. There is mild concentric increased left ventricular wall thickness. 5. The left ventricular diastolic function is grade III diastolic dysfunction. 6. E/e' 38 is significantly elevated. 7. Left atrial chamber dimension is moderately enlarged. 8. There is moderate aortic valve sclerosis. 9. There is mild to moderate aortic valve stenosis with a peak velocity of 145 cm/s, mean gradient of 5 mmHg, and aortic valve area of 1.1 cm2. 10. The mitral valve has mildly calcified annulus. 11. There is mild mitral valve regurgitation. 12. There is mild tricuspid valve regurgitation. 13. Mild pulmonary hypertension, estimated pulmonary arterial systolic pressure is 43 mmHg. 14. There is trivial pericardial effusion. Right Ventricle Right ventricular chamber dimension is normal. Right ventricular systolic function is normal. Left Atria Left atrial chamber dimension is moderately enlarged. Right Atria Right atrial chamber dimension is normal. 12/19/2023: Overnight oximetry on room air. Recording duration 8 hours and 25 minutes. Basal saturation 94%. High saturation 99%. Low saturation 77%. Time with saturation less than or equal to 88% was 25 minutes and 11 seconds. Oxygen desaturation index 37.6. I will prescribe 2 L nasal cannula and repeat overnight oximetry on 2 L nasal cannula. 10/13/2023: This is a pulmonary function test with pre and post-bronchodilator spirometry, plethysmography and diffusing capacity. The test was performed and results interpreted in accordance with the 2019 and 2005 ATS/ERS Task Force guidelines respectively using the Global Lung Function Initiative-2012 reference equations. Patient demonstrated good effort and cooperation. Reproducibility criteria were met. The quality of the pre bronchodilator spirometry maneuver was Grade A and post bronchodilator spirometry maneuver was Grade A. Findings: Spirometry: There is decreased maximal expiratory airflow at all lung volumes. The pre bronchodilator FVC is 2.78 L, 84% predicted. The pre bronchodilator FEV1 is 1.78 L, 71% predicted. The pre bronchodilator FEV1: FVC ratio 64%. The post bronchodilator FVC is 2.86 L, representing a 3% increase. The post bronchodilator FEV1 is 1.89 L, representing a 6% increase. The post bronchodilator FEV1: FVC ratio 66%. Plethysmography: The total lung capacity is 6.18 L, 103% predicted. The functional residual capacity is 2.27 L, 71% predicted. The residual volume is 2.25 L, 96% predicted. The slow vital capacity is 3.94 L. Diffusing capacity: The diffusing capacity unadjusted for hemoglobin and carboxyhemoglobin is 10.3, 46% predicted. The diffusing capacity adjusted for alveolar volume is 2.31, 58% predicted. Impression: The slow vital capacity is greater than forced vital capacity with a mildly concave expiratory tracing and a low FEV1: FVC ratio with a normal FEV1. This is suggestive of small airways disease. There is no significant improvement after inhaling a single dose of albuterol. The lung volumes are normal. The diffusing capacity unadjusted for hemoglobin and carboxyhemoglobin is moderately decreased and remains moderately decreased when adjusted for alveolar volume. In comparison to PFTs from 07/27/2023 the pre bronchodilator FVC has increased from 2.00 L to 2.78 L. The pre bronchodilator FEV1 has increased from 1.02 L to 1.78 L. the total lung capacity has increased from 3.07 L to 6.18 L. The residual volume has increased from 1.36 L to 2.25 L. The functional residual capacity is unchanged from 1.98 L to 2.27 L. The diffusing capacity has increased from 8.4 to 10.3. 10/13/2023: This is a 6 minute walk test. The test was performed and interpreted in accordance with the 2014 ERS/ATS task force guidelines. Findings: The patient's resting room air oxygen saturation measured by pulse oximetry was 98% and heart rate was 76 bpm. Patient ambulated for 244 meters and oxygen saturation remained 96 to 98%. Heart rate at the end of the study was 92 bpm. The patient did not qualify for supplemental oxygen at rest or with ambulation. 10/13/2023: Rest room air blood gas with a pH of 7.49, PaCO2 32, PaO2 103. This represents a uncompensated respiratory alkalosis with normal PaO2. collectively this demonstrates small airways disease with significant improvement from 07/27/2023. There is no need for supplemental oxygen. 10/06/2023: Overnight oximetry on room air: Recording duration 3 hours and 34 minutes. Baseline saturation 93%. High saturation 99%. Low saturation 82%. Time with saturation less than or equal to 88% was 14 minutes and 30 seconds. Oxygen desaturation index is 39.7. I will prescribe 2 L nasal cannula at night and repeat an overnight oximetry on 2 L. 10/17/2023: Our staff spoke with patient, refused oxygen at this time. 07/27/2023: PFTs from program management manager Dr. Plata: Spirometry: Pre bronchodilator FVC 2.00 L, 59% predicted. FEV1 1.02 L, 40% predicted. pre bronchodilator FEV1: FVC ratio 51%. Lung volumes: TLC 3.07 L, 57% predicted, residual volume 1.36 L, 56% predicted. functional residual capacity 1.98 L, 57% predicted. Diffusing capacity 8.4, 34% predicted. 06/11/2023; Portable chest x-ray Comparison: 05/13/2023 Clinical History: SOB Findings:? Small bilateral pleural effusions are present. There is extensive haziness in the lungs, with central pulmonary venous congestive change.? Cardiomediastinal silhouette is stable. Bones and soft tissues are unremarkable. ? Impression: ?Small bilateral pleural effusions with probable mild pulmonary edema and central congestive change. Questionable underlying COPD or other chronic interstitial disease. 05/19/2023: CT scan of the chest without contrast report and image in from [facility] ED reason for study: A heart catheterization was performed on 05/18/2023 which showed multi-vessel disease and left main disease so CT surgery was consulted for CABG evaluation. Preop CABG looking at the a order for any calcification. Comparison none. Findings: The sensitivity for detection of solid visceral lesions is diminished without the use of intravenous contrast. Lungs: A small amount of mucus and debris seen within the trachea. Trace pulmonary edema. Small fissural lymph node in the right middle lobe measuring 5 mm. Pleural: Small right pleural effusion. Mediastinum -barrie: No identified masses or abnormal nodes. Impression: Severe coronary artery calcifications. Trace pulmonary edema. Severe stenosis of the SMA. 05/09/2023: Echo Summary ? 1. Definity contrast used to improve exam quality. ? 2. Mild global left ventricular systolic dysfunction ejection fraction 40-45%. ? 3. Moderate concentric left ventricular hypertrophy. ? 4. Sclerotic but nonstenotic aortic valve. ? 5. Compared with examination from 2017 left ventricular systolic function is reduced. Left Ventricle ? Left ventricular chamber dimension is mildly enlarged. ? Left ventricular systolic function is mildly reduced, estimated at 40-45%. ? There is moderate concentric increased left ventricular wall thickness. ? The left ventricular diastolic function is grade I diastolic dysfunction. Right Ventricle ? Right ventricular chamber dimension is normal. Left Atria ? Left atrial chamber dimension is mildly enlarged. Right Atria ? Right atrial chamber dimension is normal. Body of the report states RVSP 35. Review of Systems Constitutional: Constitutional: Reports no additional constitutional complaints Eyes: Eyes: Reports no additional eye complaints ENT: Reports system reviewed and no additional complaints, except as documented Cardiovascular: Cardiovascular: Reports no additional cardiovascular complaints Respiratory: Respiratory: Reports no additional respiratory complaints Gastrointestinal: Gastrointestinal: Reports no additional gastrointestinal complaints Musculoskeletal: Musculoskeletal: Reports no additional musculoskeletal complaints Neurologic: Reports system reviewed and no additional complaints, except as documented Psychiatric: Psychiatric: Reports no additional psychiatric complaints Endocrine: Endocrine: Reports no additional endocrine complaints Hematologic/Lymphatic: Hematologic/Lymphatic: Reports no additional hematologic/lymphatic complaints Allergic/Immunologic: Allergic/Immunologic: Reports no additional allergic/immunologic complaints Exam Const: General: cooperative, healthy appearing and comfortable Orientation/consciousness: oriented to person, oriented to place and oriented to time HENMT: Head: normal to inspection Ears: hearing grossly normal bilaterally Eyes: General: appearance normal, both eyes and all related structures Neck: Neck: normal visual inspection Chest: Chest palpation & inspection: normal inspection of the chest Resp: Effort & Inspection: normal respiratory effort and able to speak in complete sentences Auscultation: crackles, no rales, no rhonchi, no wheezes and diminished lung sounds Other: bases Cardio: Jugular venous distension: no JVD GI: Inspection: normal to inspection Skin: General skin exam: normal color Neuro: General: oriented to person, oriented to place and oriented to time Extrem: General: normal to inspection and edema Psych: Appearance: grossly normal Objective Data Vital Signs Vital Signs: Vital Signs - 24 hr 07/16/24 12:00 07/16/24 12:00 07/16/24 12:50 Temperature 36.5 C Pulse Rate 82 85 Respiratory Rate 22 H Blood Pressure 119/54 L Pulse Oximetry 96 95 Oxygen Delivery Nasal Cannula Oxygen Flow Rate 4 Fraction of Inspired Oxygen 07/16/24 14:00 07/16/24 16:00 07/16/24 16:00 Temperature 36.3 C L Pulse Rate 81 78 Respiratory Rate 26 H Blood Pressure 108/48 L Pulse Oximetry 95 96 Oxygen Delivery Nasal Cannula Oxygen Flow Rate 4 Fraction of Inspired Oxygen 07/16/24 16:06 07/16/24 16:16 07/16/24 18:00 Temperature Pulse Rate 78 81 84 Respiratory Rate 24 H 20 Blood Pressure Pulse Oximetry Oxygen Delivery Oxygen Flow Rate Fraction of Inspired Oxygen 07/16/24 19:25 07/16/24 19:37 07/16/24 19:37 Temperature Pulse Rate 84 Respiratory Rate 20 Blood Pressure Pulse Oximetry 96 94 Oxygen Delivery Nasal Cannula Nasal Cannula Oxygen Flow Rate 4 4 Fraction of Inspired Oxygen 36 07/16/24 19:48 07/16/24 20:00 07/16/24 20:14 Temperature Pulse Rate 85 88 87 Respiratory Rate 20 Blood Pressure Pulse Oximetry Oxygen Delivery Oxygen Flow Rate Fraction of Inspired Oxygen 07/16/24 20:17 07/16/24 22:00 07/16/24 23:17 Temperature 36.4 C 36.4 C Pulse Rate 87 87 86 Respiratory Rate 23 H 23 H Blood Pressure 115/47 L 125/55 L Pulse Oximetry 94 94 Oxygen Delivery Oxygen Flow Rate Fraction of Inspired Oxygen 07/16/24 23:49 07/17/24 00:00 07/17/24 01:58 Temperature Pulse Rate 86 84 Respiratory Rate 20 Blood Pressure Pulse Oximetry 93 Oxygen Delivery Nasal Cannula Oxygen Flow Rate 4 Fraction of Inspired Oxygen 07/17/24 02:00 07/17/24 02:11 07/17/24 04:00 Temperature Pulse Rate 84 85 Respiratory Rate 20 Blood Pressure Pulse Oximetry 95 Oxygen Delivery Nasal Cannula Oxygen Flow Rate 4 Fraction of Inspired Oxygen 07/17/24 04:00 07/17/24 04:22 07/17/24 06:46 Temperature 36.4 C L Pulse Rate 85 85 85 Respiratory Rate 23 H Blood Pressure 127/57 L Pulse Oximetry 93 Oxygen Delivery Oxygen Flow Rate Fraction of Inspired Oxygen 07/17/24 07:51 07/17/24 07:51 07/17/24 08:14 Temperature 35.9 C L Pulse Rate 86 86 Respiratory Rate 16 24 H Blood Pressure 114/57 L Pulse Oximetry 92 93 Oxygen Delivery Nasal Cannula Oxygen Flow Rate 4 Fraction of Inspired Oxygen 07/17/24 09:12 Temperature Pulse Rate 87 Respiratory Rate Blood Pressure Pulse Oximetry Oxygen Delivery Oxygen Flow Rate Fraction of Inspired Oxygen Intake/Output Intake/Output: Intake & Output 07/14/24 07/15/24 07/16/24 07/17/24 23:59 23:59 23:59 23:59 Intake Total 1450 1780 2819 2207 Output Total 1251 1500 1050 500 Balance 465 250 6537 1707 Meds/Results Medications: Active Medications Generic Name Dose Route Start Last Admin Trade Name Freq PRN Reason Stop Dose Admin Acetaminophen 650 mg 07/12/24 16:33 07/14/24 20:29 Acetaminophen 325 Mg Tablet PO 650 mg Q4H PRN Administration Mild Pain (1-3) or Fever Albuterol 2 puff 07/13/24 11:30 07/15/24 11:10 Albuterol Sulfate (*Sp) Aerosol 1 Puff INHALATION 2 puff TID PRN Administration Shortness Of Breath Or Wheezing Albuterol/Ipratropium 3 ml 07/12/24 20:00 07/17/24 07:51 Ipratropium 0.5 Mg/Albuterol Sulfate 2.5 Mg Ampul.Neb 3 Ml INHALATION 3 ml Q6HRT TOM Administration Amlodipine Besylate 10 mg 07/13/24 11:40 07/17/24 09:12 Amlodipine Besylate 10 Mg Tablet PO 10 mg DAILY TOM Administration Aspirin 81 mg 07/13/24 11:40 07/17/24 09:12 Aspirin 81 Mg Enteric Tablet PO 81 mg DAILY TOM Administration Atorvastatin Calcium 40 mg 07/13/24 11:40 07/17/24 09:12 Atorvastatin 40 Mg Tablet PO 40 mg DAILY TOM Administration Benzocaine 1 lozenge 07/12/24 17:23 07/13/24 20:31 Benzocaine/Menthol (*Bkc) 18 Ea Lozenge PO 1 lozenge PRN PRN Administration Sore Throat Benzonatate 100 mg 07/12/24 17:23 07/14/24 20:31 Benzonatate 100 Mg Capsule PO 100 mg TID PRN Administration Cough Clonazepam 0.5 mg 07/13/24 11:30 07/16/24 20:51 Clonazepam (*Crx) 0.5 Mg Tablet PO 0.5 mg Q12H PRN Administration anxiety Dextrose 12.5 gm 07/12/24 17:24 Dextrose 50% 25 Gm/50 Ml Syringe IV PUSH PRN PRN Hypoglycemia Protocol Empagliflozin 25 mg 07/13/24 11:40 07/17/24 09:12 Empagliflozin 25 Mg Tablet PO 25 mg QAM TOM Administration Furosemide 40 mg 07/14/24 17:00 07/17/24 09:13 Furosemide Inj 40 Mg/4 Ml Vial IV PUSH 40 mg BID TOM Administration Glipizide 5 mg 07/14/24 09:00 07/17/24 09:12 Glipizide 5 Mg Tablet PO 5 mg DAILY TOM Administration Glucagon 1 mg 07/12/24 17:24 Glucagon For Inj 1 Mg Vial IM PRN PRN Hypoglycemia Protocol Glucose 15 gm 07/12/24 17:24 Glucose Oral Gel 15 Gm Of Glucse In 37.5 Gm Tube PO PRN PRN Hypoglycemia Protocol Guaifenesin 600 mg 07/12/24 18:00 07/17/24 09:13 Guaifenesin 12 Hr 600 Mg Tabcr PO 600 mg Q12HR TOM Administration Hydralazine HCl 25 mg 07/13/24 17:00 07/17/24 09:12 Hydralazine Hcl 25 Mg Tablet PO 25 mg BID TOM Administration Azithromycin 500 mg in 250 mls @ 250 mls/hr 07/13/24 12:00 07/16/24 12:59 Zithromax IVPB 07/18/24 23:59 250 mls/hr Q24H TOM Administration Dextrose 1,000 mls @ 100 mls/hr 07/12/24 17:24 Dextrose 5% 1,000 Ml IVPB PRN PRN Hypoglycemia Protocol Cefepime HCl 2 gm in 50 mls @ 100 mls/hr 07/12/24 20:00 07/16/24 20:12 Maxipime 2 Gm/Ns 50 Ml IVPB 100 mls/hr Q24H TOM Administration Insulin Aspart 2 - 5 units 07/13/24 08:00 07/17/24 07:45 Insulin Aspart (*Bkc) 100 Units/Ml SUB-Q Not Given TIDWM [facility] Protocol Insulin Aspart 1 - 2 units 07/12/24 21:00 07/16/24 20:42 Insulin Aspart (*Bkc) 100 Units/Ml SUB-Q Not Given HS [facility] Protocol Insulin Aspart 3 units 07/17/24 12:00 Insulin Aspart (*Bkc) 100 Units/Ml SUB-Q TIDWM TOM Insulin Glargine 10 units 07/18/24 09:00 Insulin Glargine (*Bkc) 100 Units/Ml SUB-Q DAILY [facility] Isosorbide Mononitrate 20 mg 07/13/24 16:00 07/17/24 09:21 Isosorbide Mononitrate 20 Mg Tablet PO 20 mg 0900,1600 [facility] Administration Metoprolol Succinate 25 mg 07/13/24 11:45 07/17/24 09:12 Metoprolol Succinate Ext Rel 25 Mg Tabcr PO 25 mg Q12HR [facility] Administration Oseltamivir Phosphate 30 mg 07/17/24 20:00 Oseltamivir Phosphate 30 Mg Capsule PO 07/22/24 19:59 Q24H [facility] Pantoprazole Sodium 40 mg 07/13/24 11:40 07/17/24 09:12 Pantoprazole 40 Mg Tablet PO 40 mg DAILY [facility] Administration Sodium Chloride 1 spray 07/13/24 02:38 07/13/24 04:05 Saline 0.65% Maikol Soln 44 Ml Btl NASAL 1 spray Q6HR PRN Administration Congestion Tamsulosin HCl 0.4 mg 07/13/24 11:40 07/17/24 09:12 Tamsulosin Hcl 0.4 Mg Capsule PO 0.4 mg DAILY [facility] Administration Ticagrelor 90 mg 07/13/24 11:40 07/17/24 07:52 Ticagrelor 90 Mg Tablet PO Not Given Q12HR [facility] Vitamin D 2,000 units 07/13/24 21:00 07/16/24 20:15 Cholecalciferol 1,000 Units Tablet PO 2,000 units HS TOM Administration Radiology Results: ITS Impressions Chest X-Ray 07/12/24 14:16 IMPRESSION: 1. Airspace opacities at the lung bases, consistent with atelectasis versus pneumonia. 2. Small pleural effusions. 3. Cardiomegaly. Chest CT 07/16/24 07:14 Impression: Moderate to large bilateral pleural effusions with bibasilar atelectatic change and probable mild pulmonary edema. Suspected underlying mild emphysema. Small amount of upper abdominal ascites. Mild mediastinal lymphadenopathy, nonspecific, unchanged. Labs Labs: Laboratory Results - last 24 hr 07/16/24 07/16/24 07/16/24 04:27 11:01 16:09 WBC RBC Hgb Hct MCV MCH MCHC RDW Plt Count MPV Immature Gran % (Auto) Neut % (Auto) Lymph % (Auto) Richardson % (Auto) Eos % (Auto) Baso % (Auto) Lymph # (Auto) Richardson # (Auto) Eos # (Auto) Baso # (Auto) Abs Immat Gran (auto) Absolute Neuts (auto) Absolute Nucleated RBC Nucleated RBC % Platelet Estimate Large Platelets Anisocytosis [place] Cells Schistocytes Sodium Potassium Chloride Carbon Dioxide Anion Gap BUN Creatinine Estim Creat Clear Calc Estimated GFR Glucose POC Capillary Glucose 310 H 390 H Calcium Magnesium NT-Pro-B Natriuret Pep > 54002 H 07/16/24 07/16/24 07/17/24 20:15 23:22 04:54 WBC 13.4 H RBC 3.20 L Hgb 9.1 L Hct 28.9 L MCV 90.3 MCH 28.4 MCHC 31.5 L RDW 15.5 H Plt Count 149 L MPV 11.9 H Immature Gran % (Auto) 0.9 H Neut % (Auto) 92.1 H Lymph % (Auto) 1.6 L Richardson % (Auto) 5.3 Eos % (Auto) 0.0 Baso % (Auto) 0.1 L Lymph # (Auto) 0.22 L Richardson # (Auto) 0.7 H Eos # (Auto) 0.0 Baso # (Auto) 0.0 Abs Immat Gran (auto) 0.12 H Absolute Neuts (auto) 12.4 H Absolute Nucleated RBC 0.000 Nucleated RBC % 0.0 Platelet Estimate Slightly decreased Large Platelets Present Anisocytosis 1+ Radha Cells 1+ Schistocytes None seen Sodium 129 L Potassium 4.2 Chloride 94 L Carbon Dioxide 20 L Anion Gap 15 H BUN 96 H D Creatinine 3.11 H Estim Creat Clear Calc 16 Estimated GFR 19 L Glucose 137 H POC Capillary Glucose 459 H 312 H Calcium 8.2 L Magnesium 2.3 NT-Pro-B Natriuret Pep 07/17/24 07:22 WBC RBC Hgb Hct MCV MCH MCHC RDW Plt Count MPV Immature Gran % (Auto) Neut % (Auto) Lymph % (Auto) Richardson % (Auto) Eos % (Auto) Baso % (Auto) Lymph # (Auto) Richardson # (Auto) Eos # (Auto) Baso # (Auto) Abs Immat Gran (auto) Absolute Neuts (auto) Absolute Nucleated RBC Nucleated RBC % Platelet Estimate Large Platelets Anisocytosis [place] Cells Schistocytes Sodium Potassium Chloride Carbon Dioxide Anion Gap BUN Creatinine Estim Creat Clear Calc Estimated GFR Glucose POC Capillary Glucose 97 Calcium Magnesium NT-Pro-B Natriuret Pep
[2024-07-17 11:12] LABS: Glucose Point of Care 82 mg/dl (65-105)
[2024-07-17] MEDS: AZITHROMYCIN 500 MG/NS 250 ML 500 MG/250 ML BAG 250 MG IVPB (12:25)
--- NOTE | 2024-07-17 12:44 | PC.NURSE ---
Notified Dr Kim that patient is refusing SCD pumps (after educated the patient on importance of use) and reminded that brilenta is on hold at this time. Received order for heparin 5,000units subq q8hr. Order read back and verified.
[2024-07-17] MEDS: HEPARIN SODIUM 5,000 UNITS/ML VIAL 5000 UNITS SUB-Q ×2 (13:10→21:36)
[2024-07-17 14:20] LABS: Alveolar/Arterial O2 Gradient 189.9 mmHg; Base Excess ABG -0.9 mEq/l (+/-2.0); Fractional Inspired Oxygen 40 %; HCO3 ABG 22.9 mEq/l (22.0-26.0); Oxygen Content ABG 13.1 %vol (16.0-22.0); Oxygen Saturation ABG 90.2 % (95.0-100.0); Oxyhemoglobin 89.1 % THb (90.0-100.0); PCO2 ABG 34.7 mmHg (35.0-45.0); PO2 ABG 55.4 mmHg (80.0-100.0); PO2 FiO2 Ratio Arterial Blood 1.38 %; Total Hemoglobin 10.4 g/dL (12.0-18.0); pH ABG 7.438 (7.350-7.450)
[2024-07-17 14:23] LABS: Device NASAL CANNULA; Modified Allen's Test Pass; Site Drawn RIGHT RADIAL
--- NOTE | 2024-07-17 14:45 | P.CONNP_ITS ---
Assessment and Plan Assessment and plan (1) ALLEN (acute kidney injury): Code(s): N17.9 - Acute kidney failure, unspecified Status: Acute Assessment and Plan: * as noted by labs on admission * creatinine 2.91mg/d on admission * however, worsening noted since 07/16 * suspect due to several issues: * infection (influenza + pneumonia) * decompensated CHF * necessity of IV diuretics for volume overload/pleural effusions * hypoxia * element of CKD progression(?) * renal ultrasound in May 2024 normal * consider checking urine studies (but doubt would foreign exchange dealer) * evidence of diuretic resistance noted * 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 (2) Chronic kidney disease, stage 4 (severe): Code(s): N18.4 - Chronic kidney disease, stage 4 (severe) Status: Chronic Assessment and Plan: * baseline creatinine was running ~ 2.0 - 2.6mg/dl * HOWEVER, with recent/recurrent hospitalizations, his creatinine seem to run closer to 2.3 - 2.8mg/dl * due to hypertension, diabetes, vascular disease (CAD + CHF/cardiomyopathy, hyperlipidemia, PAD, and possible KAYCEE), diuretic therapy as well as age related change * follows with Dr. Mathias for CKD management (3) Influenza: Code(s): J11.1 - Influenza due to unidentified influenza virus with other respiratory manifestations Status: Acute Assessment and Plan: * as noted by positive testing on 07/12/24 in ER * on Tamiflu for treatment * continue supportive therapy (4) Pneumonia: Qualifiers: Laterality: bilateral Lung location: lower lobe of lung Pneumonia type: due to unspecified organism Qualified Code(s): J18.9 - Pneumonia, unspecified organism Code(s): J18.9 - Pneumonia, unspecified organism Status: Acute Assessment and Plan: * thought to be secondary to influenza and possible bacterial component * recent CT imaging noted * empirically on antibiotics * blood culture negative * continue current therapy * on supplemental oxygen * Pulmonary following (5) Acute on chronic combined systolic and diastolic heart failure: Code(s): I50.43 - Acute on chronic combined systolic (congestive) and diastolic (congestive) heart failure Status: Acute Assessment and Plan: * as noted by clinical exam and recent imaging * no significant diuresis with IV medication therapy (diuretic resistance?) * more concerning is that his respiratory status remains quite tenuous (BiPAP dependent) * noted plans for thoracentesis (but waiting for Brillinta effect to wear off) * dialysis is a consideration but may be challenging: * not he would tolerate even temporary HD catheter placement * furthermore, unclear if fluid removal/ultrafiltration would decrease pleural effusions * Cardiology following (6) Anemia: Qualifiers: Anemia type: unspecified type Qualified Code(s): D64.9 - Anemia, unspecified Code(s): D64.9 - Anemia, unspecified Status: Acute Assessment and Plan: * likely related to ALLEN, CKD, and acute illness * follow trend of H/H * consider KYLAH if declines further (7) COPD (chronic obstructive pulmonary disease): Qualifiers: COPD type: unspecified COPD Qualified Code(s): J44.9 - Chronic obstructive pulmonary disease, unspecified Code(s): J44.9 - Chronic obstructive pulmonary disease, unspecified Status: Acute Assessment and Plan: * continue nebulizer treatments and supplemental oxygen * no evidence of exacerbation -- off steroids * Pulmonary following (8) Hypertension: Qualifiers: Hypertension type: secondary to other renal disorders Qualified Code(s): I15.1 - Hypertension secondary to other renal disorders Code(s): I10 - Essential (primary) hypertension Status: Chronic Assessment and Plan: * reasonable control at this time * follow trend of hemodynamics (9) Type 2 diabetes mellitus: Qualifiers: Diabetes mellitus riverboat captain insulin use: without mcfp use Diabetes mellitus complication status: with kidney complications Diabetes mellitus complication detail: with chronic kidney disease Chronic kidney disease stage: stage 4 (severe) Qualified Code(s): E11.22 - Type 2 diabetes mellitus with diabetic chronic kidney disease; N18.4 - Chronic kidney disease, stage 4 (severe) Code(s): E11.9 - Type 2 diabetes mellitus without complications Status: Chronic Assessment and Plan: * follow accu-cheks * glycemic control per hospitalists I will continue to follow the patient with you while he remains hospitalized and make further recommendations as deemed necessary. Thank you for allowing me to participate in the care of this patient. L History of Present Illness Reason for Consult Consult date: 07/17/24 Reason for consult: acute renal failure (on chronic kidney disease) Chief Complaint Chief complaint: Influenza/Pneumonia/Elevated Troponin Review of Systems 2 Review of Systems: As per HPI. [facility] Past Medical History Medical History (Updated 07/12/24 @ 17:45 by Valeri Swan APRN) Chronic respiratory failure with hypoxia, on home oxygen therapy Gastroesophageal reflux disease 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 Hyperlipidemia Chronic obstructive pulmonary disease Deep venous thrombosis Coronary artery disease Aortic stenosis Carotid stenosis, bilateral Depression due to physical illness Chronic kidney disease, stage 4 (severe) History of UT (myocardial infarction) Tobacco dependence Non-ST elevation myocardial infarction (NSTEMI) 05/08/2023 and 06/11/2023 Type 2 diabetes mellitus Emphysema lung Allergies Anxiety Peripheral artery disease Hypertension Renal artery stenosis Surgical History Surgical History History of cataract extraction History of coronary artery stent placement History of cardiac catheterization History of tonsillectomy Family History Family History Mother Family history of diabetes mellitus in first degree relative Cerebrovascular accident Father Family history of emphysema Sibling Family history of malignant neoplasm Social History Social History Social History: Surrogate medical decision maker: Cheryl Duval, spouse. Code status: Full code. Smoking packs per day: 0.5 Smoking cigarettes per day: 10.0 Years smoked: 40 Smoking pack-years: 20.00 Smoking status: Former smoker Tobacco type: cigarettes Alcohol intake: never Substance use: never Substance use type: does not use Do You Feel Safe in your Home?: Yes Lack of Transportation: No Lack of Food: Never True Current Housing: I Have Housing Concerned About Future Housing: No Difficulty Paying Gas/Electric Bills: No Difficulty Paying for Meds: No Currently Unemployed: No Education: High School Diploma/GED Difficulty w/ Childcare or Family Care: No Living arrangements: with family Occupation/Education: retired Spiritual care concerns: No Meds Home Medications and Allergies Home Medications ?Medication ?Instructions ?Recorded ?Confirmed ?Type aspirin 81 mg tablet,delayed 81 mg PO DAILY 12/04/19 07/12/24 History release (Adult Low Dose Aspirin) blood sugar diagnostic (Accu-Chek #100 ea 09/22/20 07/12/24 Rx Flory Plus test strips) albuterol sulfate 90 mcg/actuation 2 puff inhalation TID PRN 05/08/23 07/12/24 History aerosol inhaler Shortness Of Breath Or Wheezing ticagrelor 90 mg tablet 90 mg PO Q12H #60 tabs 09/06/23 07/12/24 Rx glipizide 5 mg tablet 5 mg PO DAILY #90 tabs 02/03/24 07/12/24 Rx cholecalciferol (vitamin D3) 50 50 mcg PO HS 02/14/24 07/12/24 History mcg (2,000 unit) capsule albuterol sulfate 1.25 mg/3 mL 1.25 mg (3 mL) inhalation Q4-6H 02/28/24 07/12/24 Rx solution for nebulization PRN shortness of breath or wheezing #90 mL tamsulosin 0.4 mg capsule 0.4 mg PO DAILY #90 caps 05/08/24 07/12/24 Rx pantoprazole 40 mg tablet,delayed 40 mg PO DAILY #90 tabs 05/14/24 07/12/24 Rx release metoprolol succinate 25 mg 25 mg PO Q12H #180 tabs 05/18/24 07/12/24 Rx tablet,extended release 24 hr (Toprol XL) clonazepam 0.5 mg tablet 0.5 mg PO Q12H PRN anxiety 06/19/24 07/12/24 History amlodipine 10 mg tablet 10 mg PO DAILY #30 tabs 06/24/24 07/12/24 Rx hydralazine 25 mg tablet 25 mg PO BID #60 tabs 06/24/24 07/12/24 Rx insulin aspart U-100 100 unit/mL 1 - 2 unit subcut HS #10 mL 06/24/24 07/12/24 Rx subcutaneous solution (Novolog U-100 Insulin aspart) insulin aspart U-100 100 unit/mL 2 - 5 unit subcut TIDWM #10 mL 06/24/24 07/12/24 Rx subcutaneous solution (Novolog U-100 Insulin aspart) empagliflozin 25 mg tablet 25 mg PO QAM #30 tabs 06/25/24 07/12/24 Rx (Jardiance) isosorbide mononitrate 20 mg tablet See Rx Instructions .Route 06/25/24 07/12/24 Rx .COMPLEX #180 tabs furosemide 80 mg tablet 80 mg PO DAILY #30 tabs 07/06/24 07/12/24 Rx atorvastatin 40 mg tablet See Rx Instructions .Route 07/09/24 07/12/24 Rx .COMPLEX #90 tabs Allergies Allergy/AdvReac Type Severity Reaction Status Date / Time No Known Allergies Allergy Unknown Verified 06/19/24 17:59 Vital Signs Vital Signs Temp Pulse Resp BP Pulse Ox O2 Del Method O2 Flow Rate 07/17/24 14:22 88 28 H 07/17/24 12:00 97.8 F 88 32 H 119/47 L 94 07/17/24 08:36 88 07/17/24 08:30 88 26 H 95 BiPAP 07/17/24 08:25 88 26 H 07/17/24 08:13 86 24 H 07/17/24 08:13 97 High Flow Nasal Cannula 10 07/17/24 08:00 98.3 F 85 24 H 127/51 L 95 07/17/24 06:00 87 07/17/24 04:37 98.3 F 85 31 H 112/56 L 92 07/17/24 03:55 78 07/17/24 03:55 78 23 H 95 BiPAP 07/17/24 02:40 79 23 H 07/17/24 02:34 88 23 H 07/17/24 02:34 88 23 H 95 BiPAP 07/17/24 02:00 88 07/17/24 00:30 86 25 H 94 BiPAP 07/17/24 00:00 98.2 F 87 26 H 142/53 H 94 07/16/24 23:55 85 07/16/24 23:55 85 29 H 95 BiPAP 07/16/24 22:00 86 07/16/24 21:35 90 07/16/24 20:58 98.3 F 87 29 H 141/98 H 91 07/16/24 20:49 86 23 H 07/16/24 20:42 85 22 H 07/16/24 20:42 87 21 H 94 BiPAP 07/16/24 20:00 84 07/16/24 20:00 84 29 H 91 BiPAP 07/16/24 18:00 74 07/16/24 16:00 85 07/16/24 16:00 92 BiPAP 07/16/24 15:30 97.6 F 86 33 H 108/47 L 94 07/16/24 15:00 86 94 BiPAP Exam 2 Narrative: GENERAL APPEARANCE: ill appearing male laying in bed with BiPAP in place HEENT: normocephalic, atraumatic, normal conjunctiva and sclera, nares patient NECK: no lymphadenopathy or thyromegaly MOUTH: normal lips, teeth, and gums CARDIOVASCULAR: RRR, normal S1 and S2, no rub RESPIRATORY: decreased breath sounds at bases with bibasilar crackles noted ABDOMEN: soft, nontender, nondistended, positive bowel sounds present EXTREMITIES: no evidence of cyanosis, clubbing, or edema NEUROLOGICAL: awake and alert; hard to understand with BiPAP in place; no focal deficits noted Results Lab Results 07/18/24 08:39 07/18/24 08:39 Lab results: Most recent lab results ABG pH 7.438 (7.350-7.450) 07/17/24 14:16 ABG pCO2 34.7 mmHg (35.0-45.0) L 07/17/24 14:16 ABG pO2 55.4 mmHg (80.0-100.0) L 07/17/24 14:16 ABG HCO3 22.9 mEq/l (22.0-26.0) 07/17/24 14:16 ABG O2 Saturation 90.2 % (95.0-100.0) L 07/17/24 14:16 Calcium 8.0 mg/dL (8.4-10.2) L 07/18/24 08:39 Magnesium 2.3 mg/dL (1.6-2.3) 07/17/24 04:54
[2024-07-17 16:16] LABS: Glucose Point of Care 49 mg/dl (65-105)
[2024-07-17] MEDS: DEXTROSE 50% 25 GM/50 ML SYRINGE IV PUSH (16:19)
--- NOTE | 2024-07-17 16:42 | PC.NURSE ---
Notified Dr Kim of patients POC glucose of 49. Followed hypoglcemic protocol and patient is currently drinking a soda. This RN and PT had talked previously in the day multiple times about poor intake and decreasing POC glucose. PT stated he does not want to do anything for it . PT more agreeable after latest low result. Also notified Dr Kim that pt is currently on bipap, as discussed previously with Dr Sandoval and Dr Kim per PT request for Bipap mask due to SOA.
[2024-07-17 17:02] LABS: Glucose Point of Care 135 mg/dl (65-105)
[2024-07-17 21:05] LABS: Glucose Point of Care 98 mg/dl (65-105)
[2024-07-17] MEDS: OSELTAMIVIR PHOSPHATE 30 MG CAPSULE PO (21:34)
[2024-07-17] MEDS: CEFEPIME 2 GM/NS 50 ML 2 GM/50 ML BAG IVPB (21:34)
[2024-07-17] MEDS: CHOLECALCIFEROL 1,000 UNITS TABLET 2000 UNITS PO (21:35)
[2024-07-18] VITALS (18 sets, daily range): BP systolic 112–142; BP diastolic 47–56; PULSE 78–92; RESP 23–32; TEMP 36.6–37.3; O2SAT 92–97
[2024-07-18] MEDS: IPRATROPIUM 0.5 MG/ALBUTEROL SULFATE 2.5 MG AMPUL.NEB 3 ML INHALATION ×3 (02:34→14:22)
[2024-07-18] MEDS: HEPARIN SODIUM 5,000 UNITS/ML VIAL 5000 UNITS SUB-Q (06:25)
--- NOTE | 2024-07-18 07:51 | PM.PNCARD ---
Progress Note: A&P Assessment and Plan (1) Combined systolic and diastolic cardiac dysfunction: Code(s): I51.89 - Other ill-defined heart diseases Status: Acute Assessment and Plan: Acute on chronic, probably due to influenza. He diuresed well on IV Lasix at last hospitalization last month. Apparently, PO Lasix is not adequate, and would use Bumetanide PO instead once adequately diuresed with IV. If contemplating thoracentesis, then antiplatelets may be held for 5 days prior and resume afterwards. 07/16/24 Echo: EF 25-30%, mod LVE, mod LVH, diastolic dysfunction (E/e' 31), RV dysfunction based on TAPSE 1.2 cm, mild LAE, mos (SABRINA 1.1 cm2, DI 0.51), mod MAC, mild MR, large pleural effusion. On Metoprolol (not Coreg as he has COPD), Jardiance. Not on Entresto and Spironolactone due to concern for worsening kidney function. Discuss Life vest to prevent sudden cardiac arrest, but he is not interested as he had it in past and it was too cumbersome for him. Not sure if fluid balance is correct with a significant positive balance of 8 liters. Nephrology consulted for worsening renal function. Consider increasing Lasix 80 mg IV BID. (2) Influenza: Code(s): J11.1 - Influenza due to unidentified influenza virus with other respiratory manifestations Status: Acute Assessment and Plan: Managed by pulm and hospitalist. (3) Chronic kidney disease, stage 4 (severe): Code(s): N18.4 - Chronic kidney disease, stage 4 (severe) Status: Chronic Assessment and Plan: Monitor as being diursed. (4) Coronary artery disease: Code(s): I25.10 - Atherosclerotic heart disease of [place] coronary artery without angina pectoris Status: Acute Assessment and Plan: Stable. (5) Hypertension: Qualifiers: Hypertension type: secondary to other renal disorders Qualified Code(s): I15.1 - Hypertension secondary to other renal disorders Code(s): I10 - Essential (primary) hypertension Status: Chronic Assessment and Plan: Stable. (6) Dyslipidemia: Code(s): E78.5 - Hyperlipidemia, unspecified Status: Acute Assessment and Plan: On Atorvastatin. Subjective Date/time seen: 07/18/24 07:51 Interval history: Reports sob. No chest pain. He is currently since last night on a CPAP. Exam Const: General: cooperative and ill appearing (tachypneic) Orientation/consciousness: oriented to person, oriented to place and oriented to time Resp: Auscultation: no crackles, no rales, no wheezes and breath sounds absent Cardio: Rate: regular rate Rhythm: regular rhythm Heart sounds: no murmurs Peripheral pulses: dorsalis pedis present Neuro: General: oriented to person, oriented to place and oriented to time Extrem: Right lower extremity: edema Left lower extremity: edema Other: Mod edema of both legs Objective Data Vital Signs Vital Signs: Vital Signs - 24 hr 07/17/24 08:00 07/17/24 08:00 07/17/24 08:00 Temperature Pulse Rate 85 84 Respiratory Rate 16 Blood Pressure Pulse Oximetry 92 Oxygen Delivery Nasal Cannula Oxygen Flow Rate 4 Fraction of Inspired Oxygen 07/17/24 08:14 07/17/24 09:12 07/17/24 10:00 Temperature 96.6 F L Pulse Rate 86 87 86 Respiratory Rate 24 H Blood Pressure 114/57 L Pulse Oximetry 93 Oxygen Delivery Oxygen Flow Rate Fraction of Inspired Oxygen 07/17/24 12:00 07/17/24 12:00 07/17/24 12:19 Temperature 97.4 F L Pulse Rate 81 85 Respiratory Rate 22 H Blood Pressure 113/51 L Pulse Oximetry 90 91 Oxygen Delivery Nasal Cannula Oxygen Flow Rate 5 Fraction of Inspired Oxygen 07/17/24 13:14 07/17/24 13:24 07/17/24 14:00 Temperature Pulse Rate 84 86 86 Respiratory Rate 22 H 22 H Blood Pressure Pulse Oximetry Oxygen Delivery Oxygen Flow Rate Fraction of Inspired Oxygen 07/17/24 15:00 07/17/24 15:30 07/17/24 16:00 Temperature 97.6 F Pulse Rate 86 86 Respiratory Rate 33 H Blood Pressure 108/47 L Pulse Oximetry 94 94 92 Oxygen Delivery BiPAP BiPAP Oxygen Flow Rate Fraction of Inspired Oxygen 07/17/24 16:00 07/17/24 18:00 07/17/24 20:00 Temperature Pulse Rate 85 74 84 Respiratory Rate 29 H Blood Pressure Pulse Oximetry 91 Oxygen Delivery BiPAP Oxygen Flow Rate Fraction of Inspired Oxygen 36 07/17/24 20:00 07/17/24 20:42 07/17/24 20:42 Temperature Pulse Rate 84 87 85 Respiratory Rate 21 H 22 H Blood Pressure Pulse Oximetry 94 Oxygen Delivery BiPAP Oxygen Flow Rate Fraction of Inspired Oxygen 07/17/24 20:49 07/17/24 20:58 07/17/24 21:35 Temperature 98.3 F Pulse Rate 86 87 90 Respiratory Rate 23 H 29 H Blood Pressure 141/98 H Pulse Oximetry 91 Oxygen Delivery Oxygen Flow Rate Fraction of Inspired Oxygen 07/17/24 22:00 07/17/24 23:55 07/17/24 23:55 Temperature Pulse Rate 86 85 85 Respiratory Rate 29 H Blood Pressure Pulse Oximetry 95 Oxygen Delivery BiPAP Oxygen Flow Rate Fraction of Inspired Oxygen 36 07/18/24 00:00 07/18/24 00:30 07/18/24 02:00 Temperature 98.2 F Pulse Rate 87 86 88 Respiratory Rate 26 H 25 H Blood Pressure 142/53 H Pulse Oximetry 94 94 Oxygen Delivery BiPAP Oxygen Flow Rate Fraction of Inspired Oxygen 07/18/24 02:34 07/18/24 02:34 07/18/24 02:40 Temperature Pulse Rate 88 88 79 Respiratory Rate 23 H 23 H 23 H Blood Pressure Pulse Oximetry 95 Oxygen Delivery BiPAP Oxygen Flow Rate Fraction of Inspired Oxygen 07/18/24 03:55 07/18/24 03:55 07/18/24 04:37 Temperature 98.3 F Pulse Rate 78 78 85 Respiratory Rate 23 H 31 H Blood Pressure 112/56 L Pulse Oximetry 95 92 Oxygen Delivery BiPAP Oxygen Flow Rate Fraction of Inspired Oxygen 36 07/18/24 06:00 Temperature Pulse Rate 87 Respiratory Rate Blood Pressure Pulse Oximetry Oxygen Delivery Oxygen Flow Rate Fraction of Inspired Oxygen Intake/Output Intake/Output: Intake & Output 07/15/24 07/16/24 07/17/24 07/18/24 23:59 23:59 23:59 23:59 Intake Total 1780 3119 3331 750 Output Total 1500 1050 900 750 Balance 280 2069 2431 0 Meds/Results Medications: Active Medications Generic Name Dose Route Start Last Admin Trade Name Freq PRN Reason Stop Dose Admin Acetaminophen 650 mg 07/12/24 16:33 07/14/24 20:29 Acetaminophen 325 Mg Tablet PO 650 mg Q4H PRN Administration Mild Pain (1-3) or Fever Albuterol 2 puff 07/13/24 11:30 07/15/24 11:10 Albuterol Sulfate (*Sp) Aerosol 1 Puff INHALATION 2 puff TID PRN Administration Shortness Of Breath Or Wheezing Albuterol/Ipratropium 3 ml 07/12/24 20:00 07/18/24 02:34 Ipratropium 0.5 Mg/Albuterol Sulfate 2.5 Mg Ampul.Neb 3 Ml INHALATION 3 ml Q6HRT TOM Administration Amlodipine Besylate 10 mg 07/13/24 11:40 07/17/24 09:12 Amlodipine Besylate 10 Mg Tablet PO 10 mg DAILY TOM Administration Aspirin 81 mg 07/13/24 11:40 07/17/24 09:12 Aspirin 81 Mg Enteric Tablet PO 81 mg DAILY TOM Administration Atorvastatin Calcium 40 mg 07/13/24 11:40 07/17/24 09:12 Atorvastatin 40 Mg Tablet PO 40 mg DAILY TOM Administration Benzocaine 1 lozenge 07/12/24 17:23 07/13/24 20:31 Benzocaine/Menthol (*Bkc) 18 Ea Lozenge PO 1 lozenge PRN PRN Administration Sore Throat Benzonatate 100 mg 07/12/24 17:23 07/14/24 20:31 Benzonatate 100 Mg Capsule PO 100 mg TID PRN Administration Cough Clonazepam 0.5 mg 07/13/24 11:30 07/16/24 20:51 Clonazepam (*Crx) 0.5 Mg Tablet PO 0.5 mg Q12H PRN Administration anxiety Dextrose 12.5 gm 07/12/24 17:24 07/17/24 16:19 Dextrose 50% 25 Gm/50 Ml Syringe IV PUSH 12.5 gm PRN PRN Administration Hypoglycemia Protocol Empagliflozin 25 mg 07/13/24 11:40 07/17/24 09:12 Empagliflozin 25 Mg Tablet PO 25 mg QAM TOM Administration Furosemide 40 mg 07/14/24 17:00 07/17/24 16:24 Furosemide Inj 40 Mg/4 Ml Vial IV PUSH 40 mg BID TOM Administration Glipizide 5 mg 07/14/24 09:00 07/17/24 09:12 Glipizide 5 Mg Tablet PO 5 mg DAILY TOM Administration Glucagon 1 mg 07/12/24 17:24 Glucagon For Inj 1 Mg Vial IM PRN PRN Hypoglycemia Protocol Glucose 15 gm 07/12/24 17:24 Glucose Oral Gel 15 Gm Of Glucse In 37.5 Gm Tube PO PRN PRN Hypoglycemia Protocol Guaifenesin 600 mg 07/12/24 18:00 07/17/24 21:36 Guaifenesin 12 Hr 600 Mg Tabcr PO 600 mg Q12HR TOM Administration Heparin Sodium (Porcine) 5,000 units 07/17/24 14:00 07/18/24 06:25 Heparin Sodium 5,000 Units/Ml Vial SUB-Q 5,000 units Q8HR TOM Administration Hydralazine HCl 25 mg 07/13/24 17:00 07/17/24 16:24 Hydralazine Hcl 25 Mg Tablet PO 25 mg BID TOM Administration Azithromycin 500 mg in 250 mls @ 250 mls/hr 07/13/24 12:00 07/17/24 13:30 Zithromax IVPB 07/18/24 23:59 Infused Q24H TOM Infusion Dextrose 1,000 mls @ 100 mls/hr 07/12/24 17:24 Dextrose 5% 1,000 Ml IVPB PRN PRN Hypoglycemia Protocol Cefepime HCl 2 gm in 50 mls @ 100 mls/hr 07/12/24 20:00 07/17/24 22:05 Maxipime 2 Gm/Ns 50 Ml IVPB 07/18/24 23:59 Infused Q24H TOM Infusion Insulin Aspart 2 - 5 units 07/13/24 08:00 07/18/24 07:42 Insulin Aspart (*Bkc) 100 Units/Ml SUB-Q Not Given TIDWM [facility] Protocol Insulin Aspart 1 - 2 units 07/12/24 21:00 07/17/24 21:36 Insulin Aspart (*Bkc) 100 Units/Ml SUB-Q Not Given HS [facility] Protocol Insulin Aspart 3 units 07/17/24 12:00 07/18/24 07:43 Insulin Aspart (*Bkc) 100 Units/Ml SUB-Q Not Given TIDWM [facility] Insulin Glargine 10 units 07/18/24 09:00 Insulin Glargine (*Bkc) 100 Units/Ml SUB-Q DAILY [facility] Isosorbide Mononitrate 20 mg 07/13/24 16:00 07/17/24 16:25 Isosorbide Mononitrate 20 Mg Tablet PO 20 mg 0900,1600 [facility] Administration Metoprolol Succinate 25 mg 07/13/24 11:45 07/17/24 21:35 Metoprolol Succinate Ext Rel 25 Mg Tabcr PO 25 mg Q12HR TOM Administration Oseltamivir Phosphate 30 mg 07/17/24 20:00 07/17/24 21:34 Oseltamivir Phosphate 30 Mg Capsule PO 07/22/24 19:59 30 mg Q24H TOM Administration Pantoprazole Sodium 40 mg 07/13/24 11:40 07/17/24 09:12 Pantoprazole 40 Mg Tablet PO 40 mg DAILY TOM Administration Sodium Chloride 1 spray 07/13/24 02:38 07/13/24 04:05 Saline 0.65% Maikol Soln 44 Ml Btl NASAL 1 spray Q6HR PRN Administration Congestion Tamsulosin HCl 0.4 mg 07/13/24 11:40 07/17/24 09:12 Tamsulosin Hcl 0.4 Mg Capsule PO 0.4 mg DAILY TOM Administration Ticagrelor 90 mg 07/13/24 11:40 07/17/24 07:52 Ticagrelor 90 Mg Tablet PO Not Given Q12HR TOM Vitamin D 2,000 units 07/13/24 21:00 07/17/24 21:35 Cholecalciferol 1,000 Units Tablet PO 2,000 units HS TOM Administration Radiology Results: ITS Impressions Chest X-Ray 07/12/24 14:16 IMPRESSION: 1. Airspace opacities at the lung bases, consistent with atelectasis versus pneumonia. 2. Small pleural effusions. 3. Cardiomegaly. Chest CT 07/16/24 07:14 Impression: Moderate to large bilateral pleural effusions with bibasilar atelectatic change and probable mild pulmonary edema. Suspected underlying mild emphysema. Small amount of upper abdominal ascites. Mild mediastinal lymphadenopathy, nonspecific, unchanged. Labs Labs: Laboratory Results - last 24 hr 07/17/24 07/17/24 07/17/24 11:07 14:16 16:13 Puncture Site Right radial ABG pH 7.438 ABG pCO2 34.7 L ABG pO2 55.4 L ABG PO2/FiO2 Ratio 1.38 ABG HCO3 22.9 ABG O2 Saturation 90.2 L ABG O2 Content 13.1 L ABG Base Excess -0.9 A-a Gradient 189.9 Oxyhemoglobin 89.1 L Total Hemoglobin 10.4 L O2 Delivery Device Nasal cannula O2 Liters/Min 5.0 FiO2 40 POC Capillary Glucose 82 49 L* 07/17/24 07/17/24 16:59 21:01 Puncture Site ABG pH ABG pCO2 ABG pO2 ABG PO2/FiO2 Ratio ABG HCO3 ABG O2 Saturation ABG O2 Content ABG Base Excess A-a Gradient Oxyhemoglobin Total Hemoglobin O2 Delivery Device O2 Liters/Min FiO2 POC Capillary Glucose 135 H 98
[2024-07-18 07:58] LABS: Glucose Point of Care 60 mg/dl (65-105)
[2024-07-18 08:23] LABS: Glucose Point of Care 120 mg/dl (65-105)
[2024-07-18] MEDS: glipiZIDE 5 MG TABLET PO (08:36)
[2024-07-18] MEDS: METOPROLOL SUCCINATE EXT REL 25 MG TABCR PO (08:36)
[2024-07-18] MEDS: amLODIPine BESYLATE 10 MG TABLET PO (08:36)
[2024-07-18] MEDS: EMPAGLIFLOZIN 25 MG TABLET PO (08:36)
[2024-07-18] MEDS: TAMSULOSIN HCL 0.4 MG CAPSULE PO (08:36)
[2024-07-18] MEDS: FUROSEMIDE INJ 40 MG/4 ML VIAL IV PUSH (08:37)
[2024-07-18] MEDS: ASPIRIN 81 MG ENTERIC TABLET PO (08:37)
[2024-07-18] MEDS: ATORVASTATIN 40 MG TABLET PO (08:37)
[2024-07-18] MEDS: hydrALAZINE HCL 25 MG TABLET PO (08:37)
[2024-07-18] MEDS: guaiFENesin 12 HR 600 MG TABCR PO (08:37)
[2024-07-18] MEDS: PANTOPRAZOLE 40 MG TABLET PO (08:37)
[2024-07-18] MEDS: ISOSORBIDE MONONITRATE 20 MG TABLET PO (08:37)
[2024-07-18 08:49] LABS: Basophils Percent Auto 0.1 % (0.2-1.2); Hematocrit 30.2 % (42.0-52.0); Hemoglobin 9.7 g/dL (14.0-18.0); Immature Granulocyte Absolute 0.12 K/mm3 (0.00-0.031); Immature Granulocyte Percent A 1.1 % (0-0.5); Lymphocytes Absolute Auto 0.26 K/mm3 (0.9-3.2); Lymphocytes Percent Auto 2.5 % (18.3-44.2); Mean Corpuscular HGB Conc 32.1 g/dl (32-36); Mean Corpuscular Hemoglobin 29.2 pg (26-34); Monocytes Absolute Auto 0.5 K/mm3 (0.1-0.6); Monocytes Percent Auto 4.7 % (2.6-8.5); Neutrophils Absolute Auto 9.6 K/mm3 (1.3-6.7); Neutrophils Percent Auto 91.6 % (45.5-73.1); Platelet Count Result 141 k/mm3 (150-375); Red Blood Count 3.32 M/mm3 (4.6-6.20); Red Cell Distribution Width 15.9 % (11.5-14.5); White Blood Count 10.5 K/mm3 (4.5-10.0)
[2024-07-18 09:04] LABS: Alanine Aminotransferase 44 U/L (6-50); Albumin Level 3.2 g/dL (3.5-5.1); Alkaline Phosphatase 93 U/L (38-126); Anion Gap 14 mmol/L (4-12); Aspartate Amino Transferase 35 U/L (17-59); Bilirubin,Total 0.6 mg/dL (0.2-1.3); Blood Urea Nitrogen 94 mg/dL (9-20); Carbon Dioxide 23 mmol/L (22-30); Chloride 95 mmol/L (98-107); Estimated CRCL calculation 15 ml/min; Estimated Glomerular Filt Rate 19; Glucose 114 mg/dL (65-110); Potassium 4.1 mmol/L (3.4-5.0); Sodium 132 mmol/L (137-145)
--- NOTE | 2024-07-18 09:22 | PM.IMPN ---
Progress Note: A&P Assessment and Plan (1) Acute on chronic combined systolic and diastolic heart failure: Code(s): I50.43 - Acute on chronic combined systolic (congestive) and diastolic (congestive) heart failure Status: Acute (2) CHF exacerbation: Code(s): I50.9 - Heart failure, unspecified Status: Acute (3) Elevated troponin: Code(s): R79.89 - Other specified abnormal findings of blood chemistry Status: Acute (4) Diabetes mellitus: Qualifiers: Diabetes mellitus complication status: with other specified complication Diabetes mellitus oil heaterman insulin use: without oil heaterman use Diabetes mellitus type: type 2 Qualified Code(s): E11.69 - Type 2 diabetes mellitus with other specified complication Code(s): E11.9 - Type 2 diabetes mellitus without complications Status: Chronic (5) Protein-calorie malnutrition, mild: Code(s): E44.1 - Mild protein-calorie malnutrition Status: Acute (6) Bexyv-fu-[id number] kidney injury: Code(s): N17.9 - Acute kidney failure, unspecified; N18.9 - Chronic kidney disease, unspecified Status: Acute (7) Influenza: Code(s): J11.1 - Influenza due to unidentified influenza virus with other respiratory manifestations Status: Acute (8) Acute and chronic respiratory failure with hypercapnia: Code(s): J96.22 - Acute and chronic respiratory failure with hypercapnia Status: Acute (9) COPD exacerbation: Code(s): J44.1 - Chronic obstructive pulmonary disease with (acute) exacerbation Status: Acute Plan Pneumonia: Qualifiers: Laterality: bilateral Lung location: lower lobe of lung Pneumonia type: due to unspecified organism Qualified Code(s): J18.9 - Pneumonia, unspecified organism Code(s): J18.9 - Pneumonia, unspecified organism Status: Acute Assessment and Plan: - did not meet SIRS criteria, however lactic elevated at 2.4. Blood cultures obtained on 07/12, follow. Plan for 2L bolus. trend lactic down. - CXR: 1. Airspace opacities at the lung bases, consistent with atelectasis versus pneumonia. 2. Small pleural effusions. 3. Cardiomegaly. Possible community-acquired pneumonia due to viral infection and better infection Started on ceftriaxone and azithromycin on to 6, exchanged to cefepime, azithromycin, and vancomycin on 07/12 and Tamiflu MRSA negative on cefepime and azithromycin CT: . Moderate to large bilateral pleural effusions with bibasilar atelectatic change and probable mild pulmonary edema.Suspected underlying mild emphysema. Consult geophysical observer for evaluation treatment Appreciate geophysical observer consultation Pleural effusion Moderate to large bilateral pleural effusions with bibasilar atelectatic change and probable mild pulmonary edema. Patient need thoracentesis for treatment and diagnosis Will hold Brilinta p.o.if ok for front office attendant Influenza: Code(s): J11.1 - Influenza due to unidentified influenza virus with other respiratory manifestations Status: Acute Assessment and Plan: tested positive for influenza A on 07/11 - CXR c/f PNA - Tamiflu 75 mg BID, symptoms worsened/developed cough in the last 2 days Acute on chronic obstructive pulmonary disease: Qualifiers: COPD type: unspecified COPD Qualified Code(s): J44.9 - Chronic obstructive pulmonary disease, unspecified Code(s): J44.9 - Chronic obstructive pulmonary disease, unspecified Status: Acute Assessment and Plan: COPD exacerbation due to pneumonia and influenza effect Continue nebulizers Continue O2 therapy to keep pulse ox above 92 Elevated troponin: Code(s): R79.89 - Other specified abnormal findings of blood chemistry Status: Acute Assessment and Plan: - EKG, initial: Sinus rhythm, rate 82, left atrial enlargement, ST-T-wave abnormality in diffuse leads consider ischemia, baseline artifact. When compared to EKG done on 06/25/2024, there are no significant changes. - Troponin: 0.052 (previously 0.035 on 07/03/2024), 3 and 6 hour ordered - ASA 324 given, continue Brilinta 90 mg q.12 hours p.o. -echo, previous (02/2024): He systolic function moderately reduced, estimated EF 40-45%, grade 3 diastolic dysfunction. See report for details. - cardiac catheterization, previous, 06/13/23: Dr. Pablo at [facility] [place] of right common iliac artery. LM 70-80%, LAD diffuse disease with severe stenosis in apical segment, LCx prox 80%, RCA with diffuse disease with severe stenosis in mid PDA; PCI to prox LCx and PCI to LM. 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 IV push Patient does not have interest of life vest Chronic kidney disease, stage 4 (severe): Code(s): N18.4 - Chronic kidney disease, stage 4 (severe) Status: Chronic Assessment and Plan: - creatinine 2.91 and GFR 21, previously 2.57 and GFR 24 on Patient received fluid resuscitation 2 L bolus -> 125 mL/hr x1L. monitor toleration, hx of HF. Creatinine is trending up slowly consult seed specialist for evaluation treatment Type 2 diabetes mellitus: Qualifiers: Diabetes mellitus skilled nursing insulin use: without oil heaterman use Diabetes mellitus complication status: with kidney complications Diabetes mellitus complication detail: with chronic kidney disease Chronic kidney disease stage: stage 4 (severe) Qualified Code(s): E11.22 - Type 2 diabetes mellitus with diabetic chronic kidney disease; N18.4 - Chronic kidney disease, stage 4 (severe) Code(s): E11.9 - Type 2 diabetes mellitus without complications Status: Chronic Assessment and Plan: - hypoglycemia protocol - POC blood glucose ACHS - home medication: Hold Jardiance, glipizide. A1C 7.5% on 06/25/2024 Continue insulin sliding scale a.c. and q.h.s. Hypertension: Qualifiers: Hypertension type: secondary to other renal disorders Qualified Code(s): I15.1 - Hypertension secondary to other renal disorders Code(s): I10 - Essential (primary) hypertension Status: Chronic Assessment and Plan: Blood pressure is controlled Continue metoprolol, Imdur, hydralazine, Lasix, amlodipine Patient still has significant dyspnea and cough, continue inpatient treatment Diet: Heart healthy GI Prophylaxis: Not currently indicated DVT Prophylaxis: SCDs Lines: Peripheral Consult Code Status: DNR Patient conditions continue to deteriorate even patient is on medical managements of acute and chronic medical issues. Patient has been on BiPAP in past 2 days, patient has severe dyspnea on BiPAP support. Patient is at the end stage of life, will consult hospice care team per patient's request Subjective Date/time seen: 07/18/24 09:22 Interval history: I saw examined the patient today, patient condition deteriorates, patient has been placed on BiPAP in past few more days. Patient still has significant dyspnea even patient was placed on BiPAP. Patient also received aggressive treatment for acute chronic medical issues, but patient still has dyspnea, this is worsening every day. Patient requests me to place him on hospice care. Exam Narrative: GENERAL: Ill-appearing, in no acute distress. Well-nourished. - EYES: EOMI. Anicteric. - HENT: Moist mucous membranes. - LUNGS: Crackles bilateral base, but improving. Tachypnea, scattered wheezing, distant breath sounds tachypnea - CARDIOVASCULAR: Regular rate and rhythm. No murmur. No JVD. Tachycardia - ABDOMEN: Soft, non-tender and non-distended. No palpable masses. - EXTREMITIES: No edema. Peripheral pulses 2+. Non-tender. - NEUROLOGIC: No focal neurological deficits. CN II-XII grossly intact. General weakness - PSYCHIATRIC: Awake, Alert and oriented x 3. mood and affect: Anxiety - SKIN: No rashes or lesions. Warm. - LYMPH: No cervical lymphadenopathy. Objective Data Vital Signs Vital Signs: Vital Signs - 24 hr 07/17/24 10:00 07/17/24 12:00 07/17/24 12:00 Temperature Pulse Rate 86 81 Respiratory Rate Blood Pressure Pulse Oximetry 90 Oxygen Delivery Nasal Cannula Oxygen Flow Rate 5 Fraction of Inspired Oxygen 07/17/24 12:19 07/17/24 13:14 07/17/24 13:24 Temperature 97.4 F L Pulse Rate 85 84 86 Respiratory Rate 22 H 22 H 22 H Blood Pressure 113/51 L Pulse Oximetry 91 Oxygen Delivery Oxygen Flow Rate Fraction of Inspired Oxygen 07/17/24 14:00 07/17/24 15:00 07/17/24 15:30 Temperature 97.6 F Pulse Rate 86 86 86 Respiratory Rate 33 H Blood Pressure 108/47 L Pulse Oximetry 94 94 Oxygen Delivery BiPAP Oxygen Flow Rate Fraction of Inspired Oxygen 07/17/24 16:00 07/17/24 16:00 07/17/24 18:00 Temperature Pulse Rate 85 74 Respiratory Rate Blood Pressure Pulse Oximetry 92 Oxygen Delivery BiPAP Oxygen Flow Rate Fraction of Inspired Oxygen 02/11/25 20:00 07/17/24 20:00 07/17/24 20:42 Temperature Pulse Rate 84 84 87 Respiratory Rate 29 H 21 H Blood Pressure Pulse Oximetry 91 94 Oxygen Delivery BiPAP BiPAP Oxygen Flow Rate Fraction of Inspired Oxygen 36 07/17/24 20:42 07/17/24 20:49 07/17/24 20:58 Temperature 98.3 F Pulse Rate 85 86 87 Respiratory Rate 22 H 23 H 29 H Blood Pressure 141/98 H Pulse Oximetry 91 Oxygen Delivery Oxygen Flow Rate Fraction of Inspired Oxygen 07/17/24 21:35 07/17/24 22:00 07/17/24 23:55 Temperature Pulse Rate 90 86 85 Respiratory Rate 29 H Blood Pressure Pulse Oximetry 95 Oxygen Delivery BiPAP Oxygen Flow Rate Fraction of Inspired Oxygen 36 07/17/24 23:55 07/18/24 00:00 07/18/24 00:30 Temperature 98.2 F Pulse Rate 85 87 86 Respiratory Rate 26 H 25 H Blood Pressure 142/53 H Pulse Oximetry 94 94 Oxygen Delivery BiPAP Oxygen Flow Rate Fraction of Inspired Oxygen 07/18/24 02:00 07/18/24 02:34 07/18/24 02:34 Temperature Pulse Rate 88 88 88 Respiratory Rate 23 H 23 H Blood Pressure Pulse Oximetry 95 Oxygen Delivery BiPAP Oxygen Flow Rate Fraction of Inspired Oxygen 07/18/24 02:40 07/18/24 03:55 07/18/24 03:55 Temperature Pulse Rate 79 78 78 Respiratory Rate 23 H 23 H Blood Pressure Pulse Oximetry 95 Oxygen Delivery BiPAP Oxygen Flow Rate Fraction of Inspired Oxygen 36 07/18/24 04:37 07/18/24 06:00 07/18/24 08:00 Temperature 98.3 F 98.3 F Pulse Rate 85 87 85 Respiratory Rate 31 H 24 H Blood Pressure 112/56 L 127/51 L Pulse Oximetry 92 95 Oxygen Delivery Oxygen Flow Rate Fraction of Inspired Oxygen 07/18/24 08:13 07/18/24 08:13 07/18/24 08:36 Temperature Pulse Rate 86 88 Respiratory Rate 24 H Blood Pressure Pulse Oximetry 97 Oxygen Delivery High Flow Nasal Cannula Oxygen Flow Rate 10 Fraction of Inspired Oxygen Intake/Output Intake/Output: Intake & Output 07/15/24 07/16/24 07/17/24 07/18/24 23:59 23:59 23:59 23:59 Intake Total 1780 3119 3331 750 Output Total 1500 1050 900 750 Balance 280 2069 2431 0 Meds/Results Medications: Active Medications Generic Name Dose Route Start Last Admin Trade Name Freq PRN Reason Stop Dose Admin Acetaminophen 650 mg 07/12/24 16:33 07/14/24 20:29 Acetaminophen 325 Mg Tablet PO 650 mg Q4H PRN Administration Mild Pain (1-3) or Fever Albuterol 2 puff 07/13/24 11:30 07/15/24 11:10 Albuterol Sulfate (*Sp) Aerosol 1 Puff INHALATION 2 puff TID PRN Administration Shortness Of Breath Or Wheezing Albuterol/Ipratropium 3 ml 07/12/24 20:00 07/18/24 08:13 Ipratropium 0.5 Mg/Albuterol Sulfate 2.5 Mg Ampul.Neb 3 Ml INHALATION 3 ml Q6HRT TOM Administration Amlodipine Besylate 10 mg 07/13/24 11:40 07/18/24 08:36 Amlodipine Besylate 10 Mg Tablet PO 10 mg DAILY TOM Administration Aspirin 81 mg 07/13/24 11:40 07/18/24 08:37 Aspirin 81 Mg Enteric Tablet PO 81 mg DAILY TOM Administration Atorvastatin Calcium 40 mg 07/13/24 11:40 07/18/24 08:37 Atorvastatin 40 Mg Tablet PO 40 mg DAILY TOM Administration Benzocaine 1 lozenge 07/12/24 17:23 07/13/24 20:31 Benzocaine/Menthol (*Bkc) 18 Ea Lozenge PO 1 lozenge PRN PRN Administration Sore Throat Benzonatate 100 mg 07/12/24 17:23 07/14/24 20:31 Benzonatate 100 Mg Capsule PO 100 mg TID PRN Administration Cough Clonazepam 0.5 mg 07/13/24 11:30 07/16/24 20:51 Clonazepam (*Crx) 0.5 Mg Tablet PO 0.5 mg Q12H PRN Administration anxiety Empagliflozin 25 mg 07/13/24 11:40 07/18/24 08:36 Empagliflozin 25 Mg Tablet PO 25 mg QAM TOM Administration Furosemide 40 mg 07/14/24 17:00 07/18/24 08:37 Furosemide Inj 40 Mg/4 Ml Vial IV PUSH 40 mg BID TOM Administration Glipizide 5 mg 07/14/24 09:00 07/18/24 08:36 Glipizide 5 Mg Tablet PO 5 mg DAILY TOM Administration Glucagon 1 mg 07/12/24 17:24 Glucagon For Inj 1 Mg Vial IM PRN PRN Hypoglycemia Protocol Guaifenesin 600 mg 07/12/24 18:00 07/18/24 08:37 Guaifenesin 12 Hr 600 Mg Tabcr PO 600 mg Q12HR TOM Administration Heparin Sodium (Porcine) 5,000 units 07/17/24 14:00 07/18/24 06:25 Heparin Sodium 5,000 Units/Ml Vial SUB-Q 5,000 units Q8HR TOM Administration Hydralazine HCl 25 mg 07/13/24 17:00 07/18/24 08:37 Hydralazine Hcl 25 Mg Tablet PO 25 mg BID [facility] Administration Azithromycin 500 mg in 250 mls @ 250 mls/hr 07/13/24 12:00 07/17/24 13:30 Zithromax IVPB 07/18/24 23:59 Infused Q24H [facility] Infusion Cefepime HCl 2 gm in 50 mls @ 100 mls/hr 07/12/24 20:00 07/17/24 22:05 Maxipime 2 Gm/Ns 50 Ml IVPB 07/18/24 23:59 Infused Q24H [facility] Infusion Insulin Aspart 2 - 5 units 07/13/24 08:00 07/18/24 07:42 Insulin Aspart (*Bkc) 100 Units/Ml SUB-Q Not Given TIDWM [facility] Protocol Insulin Aspart 1 - 2 units 07/12/24 21:00 07/17/24 21:36 Insulin Aspart (*Bkc) 100 Units/Ml SUB-Q Not Given HS [facility] Protocol Insulin Aspart 3 units 07/17/24 12:00 07/18/24 07:43 Insulin Aspart (*Bkc) 100 Units/Ml SUB-Q Not Given TIDWM [facility] Insulin Glargine 10 units 07/18/24 09:00 07/18/24 08:00 Insulin Glargine (*Bkc) 100 Units/Ml SUB-Q Not Given DAILY [facility] Isosorbide Mononitrate 20 mg 07/13/24 16:00 07/18/24 08:37 Isosorbide Mononitrate 20 Mg Tablet PO 20 mg 0900,1600 [facility] Administration Metoprolol Succinate 25 mg 07/13/24 11:45 07/18/24 08:36 Metoprolol Succinate Ext Rel 25 Mg Tabcr PO 25 mg Q12HR TOM Administration Oseltamivir Phosphate 30 mg 07/17/24 20:00 07/17/24 21:34 Oseltamivir Phosphate 30 Mg Capsule PO 07/22/24 19:59 30 mg Q24H TOM Administration Pantoprazole Sodium 40 mg 07/13/24 11:40 07/18/24 08:37 Pantoprazole 40 Mg Tablet PO 40 mg DAILY TOM Administration Sodium Chloride 1 spray 07/13/24 02:38 07/13/24 04:05 Saline 0.65% Maikol Soln 44 Ml Btl NASAL 1 spray Q6HR PRN Administration Congestion Tamsulosin HCl 0.4 mg 07/13/24 11:40 07/18/24 08:36 Tamsulosin Hcl 0.4 Mg Capsule PO 0.4 mg DAILY TOM Administration Ticagrelor 90 mg 07/13/24 11:40 07/17/24 07:52 Ticagrelor 90 Mg Tablet PO Not Given Q12HR TOM Vitamin D 2,000 units 07/13/24 21:00 07/17/24 21:35 Cholecalciferol 1,000 Units Tablet PO 2,000 units HS TOM Administration Radiology Results: ITS Impressions Chest X-Ray 07/12/24 14:16 IMPRESSION: 1. Airspace opacities at the lung bases, consistent with atelectasis versus pneumonia. 2. Small pleural effusions. 3. Cardiomegaly. Chest CT 07/16/24 07:14 Impression: Moderate to large bilateral pleural effusions with bibasilar atelectatic change and probable mild pulmonary edema. Suspected underlying mild emphysema. Small amount of upper abdominal ascites. Mild mediastinal lymphadenopathy, nonspecific, unchanged. Labs Labs: Laboratory Results - last 24 hr 07/17/24 07/17/24 07/17/24 11:07 14:16 16:13 Puncture Site Right radial ABG pH 7.438 ABG pCO2 34.7 L ABG pO2 55.4 L ABG PO2/FiO2 Ratio 1.38 ABG HCO3 22.9 ABG O2 Saturation 90.2 L ABG O2 Content 13.1 L ABG Base Excess -0.9 A-a Gradient 189.9 Oxyhemoglobin 89.1 L Total Hemoglobin 10.4 L O2 Delivery Device Nasal cannula O2 Liters/Min 5.0 FiO2 40 Sodium Potassium Chloride Carbon Dioxide Anion Gap BUN Creatinine Estim Creat Clear Calc Estimated GFR Glucose POC Capillary Glucose 82 49 L* Calcium Total Bilirubin AST ALT Alkaline Phosphatase Total Protein Albumin 07/17/24 07/17/24 07/18/24 16:59 21:01 07:34 Puncture Site ABG pH ABG pCO2 ABG pO2 ABG PO2/FiO2 Ratio ABG HCO3 ABG O2 Saturation ABG O2 Content ABG Base Excess A-a Gradient Oxyhemoglobin Total Hemoglobin O2 Delivery Device O2 Liters/Min FiO2 Sodium Potassium Chloride Carbon Dioxide Anion Gap BUN Creatinine Estim Creat Clear Calc Estimated GFR Glucose POC Capillary Glucose 135 H 98 60 L Calcium Total Bilirubin AST ALT Alkaline Phosphatase Total Protein Albumin 07/18/24 07/18/24 08:21 08:39 Puncture Site ABG pH ABG pCO2 ABG pO2 ABG PO2/FiO2 Ratio ABG HCO3 ABG O2 Saturation ABG O2 Content ABG Base Excess A-a Gradient Oxyhemoglobin Total Hemoglobin O2 Delivery Device O2 Liters/Min FiO2 Sodium 132 L Potassium 4.1 Chloride 95 L Carbon Dioxide 23 Anion Gap 14 H BUN 94 H Creatinine 3.22 H Estim Creat Clear Calc 15 Estimated GFR 19 L Glucose 114 H POC Capillary Glucose 120 H Calcium 8.0 L Total Bilirubin 0.6 AST 35 ALT 44 Alkaline Phosphatase 93 Total Protein 6.0 L Albumin 3.2 L
[2024-07-18 09:26] LABS: Anisocytosis 1+; Ovalocytes 1+; Platelet Estimate Slightly Decreased (Adequate)
[2024-07-18 09:27] LABS: Schistocytes None Seen
--- NOTE | 2024-07-18 09:56 | P.PNPL_ITS ---
Progress Note: A&P Assessment and Plan (1) Influenza: Code(s): J11.1 - Influenza due to unidentified influenza virus with other respiratory manifestations Status: Acute Assessment and Plan: Patient tested influenza positive on 07/12/2024. 07/16/2023: Currently the patient says he is breathing better than when he arrived to the hospital. He has 20% back to his normal. He has minimal cough with no phlegm and no hemoptysis. He has dyspnea on exertion and has not done any walking in the room. He is afebrile. White blood cell count 11.2, creatinine 2.98, BUN 84. His weight today is 66 kg with an admission weight of 55.9. He diuresed 20 mL yesterday and cumulative he is +4.[address] scan of the chest which shows large bilateral effusions right greater than left, adjacent compressive atelectasis, no focal consolidations, small amount of ascites. Currently on 4 L with saturation 95%. Plan: Continue Tamiflu at 30 mg Q 24 hours. today is day 5. Given his severe disease would recommend a total of 10 days of Tamiflu. Systemic steroids have been discontinued. He is being treated empirically for bacterial infection with azithromycin day 5 of 7 and cefepime day 5 of 7. Blood cultures are negative. 07/17/2023: Patient states his breathing is the same as yesterday. He denies fever, chills, cough, phlegm or hemoptysis. Currently is on 4 L nasal cannula saturations 93%. His white blood cell count is 13.4, creatinine is 3.11, BUN is 96. yesterday he was positive 1.7 L and since admission he is positive 7.1 L. His weight has increased from 55.9 on admission to 69.1. Plan: Patient CT scan did not show multifocal ground-glass infiltrates consistent with severe influenza infection. Continue Tamiflu 30 Q 24 hours given his renal insufficiency. Today is day 6 of 10. Empirically being treated for bacterial infection with azithromycin and cefepime both day 6 of 7. Oxygenation is stable. Later in the day the patient was short of breath and ABG on 5 L nasal cannula 7.44/35/55. Patient was started on noninvasive ventilation for work of breathing with an AVAPS mode adjusted for comfort resulting in a rate of 14, tidal volume 500, EPAP 5, minimal inspiratory pressure 6, maximal inspiratory pressure 25, inspiratory time will 0.8, rise of 1, 40% FiO2. 07/18/24: Patient wore noninvasive ventilator throughout the day and overnight. He was taken off this morning but could only tolerate 10 minutes off the noninvasive ventilator due to shortness of breath. He is afebrile. White blood cell count 10.5, creatinine 3.22, BUN 94. He remains on noninvasive ventilation with AVAPS and 35% FiO2 with saturations 92%. He says the settings are comfortable. Plan: Continue tamiflu 30 mg Q 24 hours given his renal insufficiency. Day . Empirically being treated for possible bacterial infection with cefepime and azithromycin day 7 . I will repeat BNP today. I will repeat chest x- ray. Discussed with Dr. Kim, will follow with you. (2) Congestive heart failure: Qualifiers: Heart failure chronicity: acute Heart failure type: unspecified Qualified Code(s): I50.9 - Heart failure, unspecified Code(s): I50.9 - Heart failure, unspecified Status: Acute Assessment and Plan: Patient with a history of coronary artery disease status post PCI circumflex and left main on ticagrelor, congestive heart failure with an LVEF of 40-45%, grade 3 diastolic dysfunction, aortic stenosis with a valve area of 1.1, mean gradient 5 on echocardiogram from 02/20/2024. Patient has chronic renal insufficiency with baseline creatinine in June of 2.2-2.3. Admitted now with a creatinine of 2.91 and with attempted diuresis with IV Lasix his creatinine today is 2.98. CT scan today shows bilateral large pleural effusions right greater than left, congestion and small amount of ascites. BNP has remained greater than 30,000 since 02/28/2024, 06/19/2024, 07/02/2024 and 07/12/2024. Repeat today is greater than 30,000. Plan: patient remains fluid overloaded. Diuresis per hospitalist. patient would benefit from an ultrasound-guided thoracentesis on the right to help his breathing mechanics and hypoxemia. Wait time for brilenta is 5 days. Patient received a dose on 07/16 at 9:31 a.m.. Discussed with hospitalist who w ill determine if this medicine can be stopped safely. Echocardiogram ordered echocardiogram with LVEF 25-30%, abnormal diastolic function, moderate aortic stenosis with a valve area 1.10, normal RV size and function, normal right atrial size, PASP 36. 07/17 Patient with continued shortness of breath. Although the patient has influenza the CT scan of the visualized portions of the lungs did not show diffuse ground-glass infiltrates and I suspect the majority of patient's symptoms are related to fluid overload with large bilateral pleural effusions and chronic renal failure making diuresis difficult. Plan: Patient is on Lasix 40 IV b.i.d per hospitalist and family day care provider. Unfortunately he is not able to be diuresed with creatinine of 3.11. Hospitalist will consult Nephrology. Brilenta has been held with last dose 07/16/2024 at 8:15 p.m. this will need to be held for 5 days prior to thoracentesis. 07/18/24: Patient continues to deteriorate and now is noninvasive ventilation dependent. He was 2.4 L positive yesterday and cumulative he is positive 8.2 L since admission. His weight was 55.9 or 62.1 on admission. Yesterday his weight was 69.1. Today's weight is 67.8. His creatinine is worse at 3.22 with a BUN of 94. I will order a BNP and a chest x-ray. Nephrology consult pending. He may require emergent fluid removal. Brilenta has been held with last dose 07/16/2024 at 8:15 p.m. this will need to be held for 5 days prior to thoracentesis. (3) COPD (chronic obstructive pulmonary disease): Qualifiers: COPD type: unspecified COPD Qualified Code(s): J44.9 - Chronic obstructive pulmonary disease, unspecified Code(s): J44.9 - Chronic obstructive pulmonary disease, unspecified Status: Acute Assessment and Plan: regarding his COPD, On 12/13/2023: Patient is a 23 pack year history of tobacco use quit in 2022.? He was exposed to secondhand smoke from his father and from his 1st from 1966 and 1983 and his 2nd from [id number].? PFTs from pulmonary outpatient visit note on 07/27/2023 demonstrate an FEV1 of 40% predicted.? Total lung capacity 57% predicted and a DLCO of 34% predicted.?More recent PFTs on 10/13/2023 with a normal FEV1 at 71%, ratio 64%, no bronchodilator response, normal lung volumes and moderately decreased DLCO when adjusted for alveolar volume.? There was significant increase in the FVC, FEV1, total lung capacity, residual volume and diffusing capacity when compared to 07/27/2023. Room air sats were 95%.?? Currently has no activity limitations due to shortness of breath but he does have limitations due to leg pain.? He has peripheral vascular disease.?? He denies cough or chronic phlegm production.?? Previous note says he has an alpha 1 anti trypsin level of 248 on 06/18/2019. I prescribe Stiolto Respimat. previous overnight oximetry on room air on 10/06/2023 with hypoxemia and I prescribed 2 L which was never arranged and I reordered this. I recommended vaccines including influenza, COVID and RSV and at this time he was unwilling. Patient is on 2 L nasal cannula. ABG on 06/19/2024 7.48/36/71. VBG on 07/02/2024 7.36/48/52. No evidence of prior hypercarbic respiratory failure. 07/16/24: Currently the patient has influenza pneumonia. He has been treated for COPD exacerbation with bronchodilators and steroids. Currently patient is on 4 L nasal cannula saturations 96%. Plan: I do not feel there is an active COPD exacerbation at this time. I have discontinue the steroids as he has influenza pneumonia. Continue DuoNebs q.6 hours. Goal saturation 90-94%, Wean oxygen accordingly.. 07/17: No wheezing on exam. No evidence of COPD exacerbation. Plan: Continue DuoNebs q.6 hours goal saturation 90-94% and wean oxygen accordingly. 07/18/24: No wheezing, no evidence of COPD exacerbation. Plan: Continue DuoNebs. Subjective Date/time seen: 07/18/24 09:56 Interval history: 07/16/2024: This is a new pulmonary consult for influenza pneumonia with hypoxemic respiratory failure. 79-year-old with a history of coronary artery disease: [facility] 06/13/[address] Pablo at [facility] [place]: [employer] of right common iliac artery. LM 70-80%, LAD di ffuse disease with severe stenosis in apical segment, LCx prox 80%, RCA with diffuse disease with severe stenosis in mid PDA; PCI to prox LCx and PCI to LM, congestive heart failure with decreased LVEF and diastolic dysfunction, aortic stenosis, GERD, hyperlipidemia, DVT, diabetes, hypertension, renal artery stenosis, and COPD.. 07/16/2024: This is a new pulmonary consult for influenza a and respiratory failure. Patient followed in the Pulmonary Clinic for COPD and last seen on 12/13/2023. Patient was a no-show on 07/02/2024 Patient carries a history of COPD with most recent PFTs? with most recent PFTs on 10/13/2023 consistent with small airways disease.? regarding his COPD, On 12/13/2023: Patient is a 23 pack year history of tobacco use quit in 2022.? He was exposed to secondhand smoke from his father and from his 1st from 1966 and 1983 and his 2nd from [id number].? PFTs from pulmonary outpatient visit note on 07/27/2023 demonstrate an FEV1 of 40% predicted.? Total lung capacity 57% predicted and a DLCO of 34% predicted.?More recent PFTs on 10/13/2023 with a normal FEV1 at 71%, ratio 64%, no bronchodilator response, normal lung volumes and moderately decreased DLCO when adjusted for alveolar volume.? There was significant increase in the FVC, FEV1, total lung capacity, residual volume and diffusing capacity when compared to 07/27/2023. Room air sats were 95%.?? Currently has no activity limitations due to shortness of breath but he does have limitations due to leg pain.? He has peripheral vascular disease.?? He denies cough or chronic phlegm production.?? Previous note says he has an alpha 1 anti trypsin level of 248 on 06/18/2019. I prescribe Stiolto Respimat. previous overnight oximetry on room air on 10/06/2023 with hypoxemia and I prescribed 2 L which was never arranged and I reordered this. I recommended vaccines including influenza, COVID and RSV and at this time he was unwilling. Patient is on 2 L nasal cannula. 06/19/2024 through 06/24/2024:? Admitted with 2 weeks worsening dyspnea on exertion, orthopnea runny nose and nonproductive cough. ?BNP greater than 30,000. Required 8 L. CTA negative for pulmonary embolism with bibasilar atelectasis versus pneumonia and large bilateral pleural effusions.? He was treated with IV Lasix, bronchodilators, systemic steroids, ceftriaxone and azithromycin.? Weight decreased from 55.7 kg to 51.4 kg.? Discharged on room air, Lasix 40 a day (increased from 20 Q day), albuterol p.r.n. admission weight 55.7 kg. Discharge weight 51.4 kg. 07/03/24 through 07/03/2024: Admitted to [facility] with shortness of breath. BNP greater than 30,000, VBG 7.36/48. patient treated with BiPAP, steroids, DuoNebs, and IV Lasix. Admission weight 58 kg. Discharge weight 58.3 kg. Discharged on Lasix 80 mg a day, cefdinir 300, doxycycline 100 albuterol nebulizer and inhaler p.r.n. 07/12/2024: Patient presented to the emergency department with weakness and cough. He had worsening shortness of breath for the last few days, cough x2 days, weakness and bilateral swelling of the lower extremities. Blood pressure 127/53, heart rate 83, respirations 19, on 2 L nasal cannula saturations 95%. He had no wheezing. White blood cell count 11.0, eosinophils 0.0, creatinine 2.91, BUN 61, serum bicarbonate 23, BNP greater than 30,000, influenza a RT PCR positive. Patient started on Tamiflu, ceftriaxone, azithromycin and vancomycin. he was given prednisone 40 mg on 07/13 and 07/14. patient was changed to Solu-Medrol on 07/14/2023. 07/16/2023: Currently the patient says he is breathing better than when he arrived to the hospital. He has 20% back to his normal. He has minimal cough with no phlegm and no hemoptysis. He has dyspnea on exertion and has not done any walking in the room. He is afebrile. White blood cell count 11.2, creatinine 2.98, BUN 84. His weight today is 66 kg with an admission weight of 55.9. He diuresed 20 mL yesterday and cumulative he is +4.[address] scan of the chest which shows large bilateral effusions right greater than left, adjacent compressive atelectasis, no focal consolidations, small amount of ascites. 07/17/2023: Patient states his breathing is the same as yesterday. He denies fever, chills, cough, phlegm or hemoptysis. Currently is on 4 L nasal cannula saturations 93%. His white blood cell count is 13.4, creatinine is 3.11, BUN is 96. yesterday he was positive 1.7 L and since admission he is positive 7.1 L. His weight has increased from 55.9 on admission to 69.1. Later in the day the patient was short of breath and ABG on 5 L nasal cannula 7.44/35/55. Patient was started on noninvasive ventilation for work of breathing with an AVAPS mode adjusted for comfort resulting in a rate of 14, tidal volume 500, EPAP 5, minimal inspiratory pressure 6, maximal inspiratory pressure 25, inspiratory time will 0.8, rise of 1, 40% FiO2. 07/18/24: Patient wore noninvasive ventilator throughout the day and overnight. He was taken off this morning but could only tolerate 10 minutes off the noninvasive ventilator due to shortness of breath. He is afebrile. White blood cell count 10.5, creatinine 3.22, BUN 94. He remains on noninvasive ventilation with AVAPS and 35% FiO2 with saturations 92%. He says the settings are comfortable. DATA: 07/16/24: Echo Summary 1. Definity contrast administered improved wall motion interpretation. 2. Left ventricular chamber dimension is moderately enlarged. 3. There is moderate concentric increased left ventricular wall thickness. 4. Left ventricular systolic function is severely globally reduced, estimated at 25-30%. 5. The left ventricular diastolic function is abnormal. 6. E/e' 31 is significantly elevated. 7. RV function appears visually to be preserved, however, right ventricular systolic function is reduced based on abnormal TAPSE 1.2 cm. 8. Left atrial chamber dimension is mildly enlarged. 9. There is moderate aortic valve sclerosis. 10. There is moderate aortic valve stenosis with a peak velocity of 144.98 cm/s, mean gradient of 5 mmHg, and aortic valve area of 1.10 cm2. The dimensionless index is 0.51 which is not severe aortic valve stenosis in setting of cardiomyopathy. 11. The mitral valve has moderately calcified annulus. 12. There is mild tricuspid valve regurgitation. 13. No pulmonary hypertension, estimated pulmonary arterial systolic pressure is 36 mmHg. 14. Dilated inferior vena cava with <50% collapse upon inspiration consistent with significantly elevated right atrial pressure, 15 mmHg. 15. Large pleural effusion. Right Ventricle RV function appears visually to be preserved, however, right ventricular systolic function is reduced based on abnormal TAPSE 1.2 cm. Right ventricular chamber dimension is normal. Right Atria Right atrial chamber dimension is normal. 07/16/24: CT Scan of the Chest without Contrast: Clinical Indication: Shortness of breath Technique: Contiguous sections were acquired throughout the chest without intravenous contrast. Dose reduction technique was used on this scan by utilizing automated exposure control and iterative reconstruction technique. The dose-length product (DLP) was 286.97 mGy-cm. COMPARISON: 06/19/2024 Findings: Multiple bilateral enlarged mediastinal lymph nodes are similar to prior exam. There are extensive atherosclerotic calcifications of the aorta and coronary arteries. No pericardial effusion. Moderate to large bilateral pleural effusions are similar to prior exam, with bibasilar atelectatic change. There is mild emphysema and probable mild interstitial pulmonary edema. Images through the upper abdomen reveal small amount of upper abdominal ascites. Impression: Moderate to large bilateral pleural effusions with bibasilar atelectatic change and probable mild pulmonary edema. Suspected underlying mild emphysema. Small amount of upper abdominal ascites. Mild mediastinal lymphadenopathy, nonspecific, unchanged. 02/20/2024: Summary 1. Complete two-dimensional, color flow and Doppler transthoracic echocardiogram is performed. 2. Left ventricular chamber dimension is normal. 3. Left ventricular systolic function is moderately reduced, estimated at 40-45%. 4. There is mild concentric increased left ventricular wall thickness. 5. The left ventricular diastolic function is grade III diastolic dysfunction. 6. E/e' 38 is significantly elevated. 7. Left atrial chamber dimension is moderately enlarged. 8. There is moderate aortic valve sclerosis. 9. There is mild to moderate aortic valve stenosis with a peak velocity of 145 cm/s, mean gradient of 5 mmHg, and aortic valve area of 1.1 cm2. 10. The mitral valve has mildly calcified annulus. 11. There is mild mitral valve regurgitation. 12. There is mild tricuspid valve regurgitation. 13. Mild pulmonary hypertension, estimated pulmonary arterial systolic pressure is 43 mmHg. 14. There is trivial pericardial effusion. Right Ventricle Right ventricular chamber dimension is normal. Right ventricular systolic function is normal. Left Atria Left atrial chamber dimension is moderately enlarged. Right Atria Right atrial chamber dimension is normal. 12/19/2023: Overnight oximetry on room air. Recording duration 8 hours and 25 minutes. Basal saturation 94%. High saturation 99%. Low saturation 77%. Time with saturation less than or equal to 88% was 25 minutes and 11 seconds. Oxygen desaturation index 37.6. I will prescribe 2 L nasal cannula and repeat overnight oximetry on 2 L nasal cannula. 10/13/2023: This is a pulmonary function test with pre and post-bronchodilator spirometry, plethysmography and diffusing capacity. The test was performed and results interpreted in accordance with the 2019 and 2005 ATS/ERS Task Force guidelines respectively using the Global Lung Function Initiative-2012 reference equations. Patient demonstrated good effort and cooperation. Reproducibility criteria were met. The quality of the pre bronchodilator spirometry maneuver was Grade A and post bronchodilator spirometry maneuver was Grade A. Findings: Spirometry: There is decreased maximal expiratory airflow at all lung volumes. The pre bronchodilator FVC is 2.78 L, 84% predicted. The pre bronchodilator FEV1 is 1.78 L, 71% predicted. The pre bronchodilator FEV1: FVC ratio 64%. The post bronchodilator FVC is 2.86 L, representing a 3% increase. The post bronchodilator FEV1 is 1.89 L, representing a 6% increase. The post bronchodilator FEV1: FVC ratio 66%. Plethysmography: The total lung capacity is 6.18 L, 103% predicted. The functional residual capacity is 2.27 L, 71% predicted. The residual volume is 2.25 L, 96% predicted. The slow vital capacity is 3.94 L. Diffusing capacity: The diffusing capacity unadjusted for hemoglobin and carboxyhemoglobin is 10.3, 46% predicted. The diffusing capacity adjusted for alveolar volume is 2.31, 58% predicted. Impression: The slow vital capacity is greater than forced vital capacity with a mildly concave expiratory tracing and a low FEV1: FVC ratio with a normal FEV1. This is suggestive of small airways disease. There is no significant improvement after inhaling a single dose of albuterol. The lung volumes are normal. The diffusing capacity unadjusted for hemoglobin and carboxyhemoglobin is moderately decreased and remains moderately decreased when adjusted for alveolar volume. In comparison to PFTs from 07/27/2023 the pre bronchodilator FVC has increased from 2.00 L to 2.78 L. The pre bronchodilator FEV1 has increased from 1.02 L to 1.78 L. the total lung capacity has increased from 3.07 L to 6.18 L. The residual volume has increased from 1.36 L to 2.25 L. The functional residual capacity is unchanged from 1.98 L to 2.27 L. The diffusing capacity has increased from 8.4 to 10.3. 10/13/2023: This is a 6 minute walk test. The test was performed and interpreted in accordance with the 2014 ERS/ATS task force guidelines. Findings: The patient's resting room air oxygen saturation measured by pulse oximetry was 98% and heart rate was 76 bpm. Patient ambulated for 244 meters and oxygen saturation remained 96 to 98%. Heart rate at the end of the study was 92 bpm. The patient did not qualify for supplemental oxygen at rest or with ambulation. 10/13/2023: Rest room air blood gas with a pH of 7.49, PaCO2 32, PaO2 103. This represents a uncompensated respiratory alkalosis with normal PaO2. collectively this demonstrates small airways disease with significant improvement from 07/27/2023. There is no need for supplemental oxygen. 10/06/2023: Overnight oximetry on room air: Recording duration 3 hours and 34 minutes. Baseline saturation 93%. High saturation 99%. Low saturation 82%. Time with saturation less than or equal to 88% was 14 minutes and 30 seconds. Oxygen desaturation index is 39.7. I will prescribe 2 L nasal cannula at night and repeat an overnight oximetry on 2 L. 10/17/2023: Our staff spoke with patient, refused oxygen at this time. 07/27/2023: PFTs from [employer] offbearer Dr. Plata: Spirometry: Pre bronchodilator FVC 2.00 L, 59% predicted. FEV1 1.02 L, 40% pr edicted. pre bronchodilator FEV1: FVC ratio 51%. Lung volumes: TLC 3.07 L, 57% predicted, residual volume 1.36 L, 56% predicted. functional residual capacity 1.98 L, 57% predicted. Diffusing capacity 8.4, 34% predicted. 06/11/2023; Portable chest x-ray Comparison: 05/13/2023 Clinical History: SOB Findings:? Small bilateral pleural effusions are present. There is extensive haziness in the lungs, with central pulmonary venous congestive change.? Cardiomediastinal silhouette is stable. Bones and soft tissues are unremarkable. ? Impression: ?Small bilateral pleural effusions with probable mild pulmonary edema and central congestive change. Questionable underlying COPD or other chronic interstitial disease. 05/19/2023: CT scan of the chest without contrast report and image in from [facility] ED reason for study: A heart catheterization was performed on 05/18/2023 which showed multi-vessel disease and left main disease so CT surgery was consulted for CABG evaluation. Preop CABG looking at the a order for any calcification. Comparison none. Findings: The sensitivity for detection of solid visceral lesions is diminished without the use of intravenous contrast. Lungs: A small amount of mucus and debris seen within the trachea. Trace pulmonary edema. Small fissural lymph node in the right middle lobe measuring 5 mm. Pleural: Small right pleural effusion. Mediastinum -barrie: No identified masses or abnormal nodes. Impression: Severe coronary artery calcifications. Trace pulmonary edema. Severe stenosis of the SMA. 05/09/2023: Echo Summary ? 1. Definity contrast used to improve exam quality. ? 2. Mild global left ventricular systolic dysfunction ejection fraction 40-45%. ? 3. Moderate concentric left ventricular hypertrophy. ? 4. Sclerotic but nonstenotic aortic valve. ? 5. Compared with examination from 2017 left ventricular systolic function is reduced. Left Ventricle ? Left ventricular chamber dimension is mildly enlarged. ? Left ventricular systolic function is mildly reduced, estimated at 40-45%. ? There is moderate concentric increased left ventricular wall thickness. ? The left ventricular diastolic function is grade I diastolic dysfunction. Right Ventricle ? Right ventricular chamber dimension is normal. Left Atria ? Left atrial chamber dimension is mildly enlarged. Right Atria ? Right atrial chamber dimension is normal. Body of the report states RVSP 35. Review of Systems Constitutional: Constitutional: Reports no additional constitutional complaints Eyes: Eyes: Reports no additional eye complaints ENT: Reports system reviewed and no additional complaints, except as docume nted Cardiovascular: Cardiovascular: Reports no additional cardiovascular complaints Respiratory: Respiratory: Reports no additional respiratory complaints Gastrointestinal: Gastrointestinal: Reports no additional gastrointestinal complaints Musculoskeletal: Musculoskeletal: Reports no additional musculoskeletal complaints Neurologic: Reports system reviewed and no additional complaints, except as documented Psychiatric: Psychiatric: Reports no additional psychiatric complaints Endocrine: Endocrine: Reports no additional endocrine complaints Hematologic/Lymphatic: Hematologic/Lymphatic: Reports no additional hematologic/lymphatic complaints Allergic/Immunologic: Allergic/Immunologic: Reports no additional allergic/immunologic complaints Exam Const: General: cooperative, healthy appearing and comfortable Orientation/consciousness: oriented to person, oriented to place and oriented to time HENMT: Head: normal to inspection Ears: hearing grossly normal bilaterally Eyes: General: appearance normal, both eyes and all related structures Neck: Neck: normal visual inspection Chest: Chest palpation & inspection: normal inspection of the chest Resp: Effort & Inspection: normal respiratory effort and able to speak in complete sentences Auscultation: crackles, no rales, no rhonchi, no wheezes and diminished lung sounds Other: bases Cardio: Jugular venous distension: no JVD GI: Inspection: normal to inspection Skin: General skin exam: normal color Neuro: General: oriented to person, oriented to place and oriented to time Extrem: General: normal to inspection and edema Psych: Appearance: grossly normal Objective Data Vital Signs Vital Signs: Vital Signs - 24 hr 07/17/24 10:00 07/17/24 12:00 07/17/24 12:00 Temperature Pulse Rate 86 81 Respiratory Rate Blood Pressure Pulse Oximetry 90 Oxygen Delivery Nasal Cannula Oxygen Flow Rate 5 Fraction of Inspired Oxygen 07/17/24 12:19 07/17/24 13:14 07/17/24 13:24 Temperature 36.3 C L Pulse Rate 85 84 86 Respiratory Rate 22 H 22 H 22 H Blood Pressure 113/51 L Pulse Oximetry 91 Oxygen Delivery Oxygen Flow Rate Fraction of Inspired Oxygen 07/17/24 14:00 07/17/24 15:00 07/17/24 15:30 Temperature 36.4 C Pulse Rate 86 86 86 Respiratory Rate 33 H Blood Pressure 108/47 L Pulse Oximetry 94 94 Oxygen Delivery BiPAP Oxygen Flow Rate Fraction of Inspired Oxygen 07/17/24 16:00 07/17/24 16:00 07/17/24 18:00 Temperature Pulse Rate 85 74 Respiratory Rate Blood Pressure Pulse Oximetry 92 Oxygen Delivery BiPAP Oxygen Flow Rate Fraction of Inspired Oxygen 07/17/24 20:00 07/17/24 20:00 07/17/24 20:42 Temperature Pulse Rate 84 84 87 Respiratory Rate 29 H 21 H Blood Pressure Pulse Oximetry 91 94 Oxygen Delivery BiPAP BiPAP Oxygen Flow Rate Fraction of Inspired Oxygen 36 07/17/24 20:42 07/17/24 20:49 07/17/24 20:58 Temperature 36.8 C Pulse Rate 85 86 87 Respiratory Rate 22 H 23 H 29 H Blood Pressure 141/98 H Pulse Oximetry 91 Oxygen Delivery Oxygen Flow Rate Fraction of Inspired Oxygen 07/17/24 21:35 07/17/24 22:00 07/17/24 23:55 Temperature Pulse Rate 90 86 85 Respiratory Rate 29 H Blood Pressure Pulse Oximetry 95 Oxygen Delivery BiPAP Oxygen Flow Rate Fraction of Inspired Oxygen 36 07/17/24 23:55 07/18/24 00:00 07/18/24 00:30 Temperature 36.8 C Pulse Rate 85 87 86 Respiratory Rate 26 H 25 H Blood Pressure 142/53 H Pulse Oximetry 94 94 Oxygen Delivery BiPAP Oxygen Flow Rate Fraction of Inspired Oxygen 07/18/24 02:00 07/18/24 02:34 07/18/24 02:34 Temperature Pulse Rate 88 88 88 Respiratory Rate 23 H 23 H Blood Pressure Pulse Oximetry 95 Oxygen Delivery BiPAP Oxygen Flow Rate Fraction of Inspired Oxygen 07/18/24 02:40 07/18/24 03:55 07/18/24 03:55 Temperature Pulse Rate 79 78 78 Respiratory Rate 23 H 23 H Blood Pressure Pulse Oximetry 95 Oxygen Delivery BiPAP Oxygen Flow Rate Fraction of Inspired Oxygen 36 07/18/24 04:37 07/18/24 06:00 07/18/24 08:00 Temperature 36.8 C 36.8 C Pulse Rate 85 87 85 Respiratory Rate 31 H 24 H Blood Pressure 112/56 L 127/51 L Pulse Oximetry 92 95 Oxygen Delivery Oxygen Flow Rate Fraction of Inspired Oxygen 07/18/24 08:13 07/18/24 08:13 07/18/24 08:25 Temperature Pulse Rate 86 88 Respiratory Rate 24 H 26 H Blood Pressure Pulse Oximetry 97 Oxygen Delivery High Flow Nasal Cannula Oxygen Flow Rate 10 Fraction of Inspired Oxygen 07/18/24 08:36 Temperature Pulse Rate 88 Respiratory Rate Blood Pressure Pulse Oximetry Oxygen Delivery Oxygen Flow Rate Fraction of Inspired Oxygen Intake/Output Intake/Output: Intake & Output 07/15/24 07/16/24 07/17/24 07/18/24 23:59 23:59 23:59 23:59 Intake Total 1780 3119 3331 750 Output Total 1500 1050 900 750 Balance 280 2069 2431 0 Meds/Results Medications: Active Medications Generic Name Dose Route Start Last Admin Trade Name Freq PRN Reason Stop Dose Admin Acetaminophen 650 mg 07/12/24 16:33 07/14/24 20:29 Acetaminophen 325 Mg Tablet PO 650 mg Q4H PRN Administration Mild Pain (1-3) or Fever Albuterol 2 puff 07/13/24 11:30 07/15/24 11:10 Albuterol Sulfate (*Sp) Aerosol 1 Puff INHALATION 2 puff TID PRN Administration Shortness Of Breath Or Wheezing Albuterol/Ipratropium 3 ml 07/12/24 20:00 07/18/24 08:13 Ipratropium 0.5 Mg/Albuterol Sulfate 2.5 Mg Ampul.Neb 3 Ml INHALATION 3 ml Q6HRT TOM Administration Amlodipine Besylate 10 mg 07/13/24 11:40 07/18/24 08:36 Amlodipine Besylate 10 Mg Tablet PO 10 mg DAILY TOM Administration Aspirin 81 mg 07/13/24 11:40 07/18/24 08:37 Aspirin 81 Mg Enteric Tablet PO 81 mg DAILY TOM Administration Atorvastatin Calcium 40 mg 07/13/24 11:40 07/18/24 08:37 Atorvastatin 40 Mg Tablet PO 40 mg DAILY TOM Administration Benzocaine 1 lozenge 07/12/24 17:23 07/13/24 20:31 Benzocaine/Menthol (*Bkc) 18 Ea Lozenge PO 1 lozenge PRN PRN Administration Sore Throat Benzonatate 100 mg 07/12/24 17:23 07/14/24 20:31 Benzonatate 100 Mg Capsule PO 100 mg TID PRN Administration Cough Clonazepam 0.5 mg 07/13/24 11:30 07/16/24 20:51 Clonazepam (*Crx) 0.5 Mg Tablet PO 0.5 mg Q12H PRN Administration anxiety Empagliflozin 25 mg 07/13/24 11:40 07/18/24 08:36 Empagliflozin 25 Mg Tablet PO 25 mg QAM TOM Administration Furosemide 40 mg 07/14/24 17:00 07/18/24 08:37 Furosemide Inj 40 Mg/4 Ml Vial IV PUSH 40 mg BID TOM Administration Glucagon 1 mg 07/12/24 17:24 Glucagon For Inj 1 Mg Vial IM PRN PRN Hypoglycemia Protocol Guaifenesin 600 mg 07/12/24 18:00 07/18/24 08:37 Guaifenesin 12 Hr 600 Mg Tabcr PO 600 mg Q12HR TOM Administration Heparin Sodium (Porcine) 5,000 units 07/17/24 14:00 07/18/24 06:25 Heparin Sodium 5,000 Units/Ml Vial SUB-Q 5,000 units Q8HR TOM Administration Hydralazine HCl 25 mg 07/13/24 17:00 07/18/24 08:37 Hydralazine Hcl 25 Mg Tablet PO 25 mg BID TOM Administration Azithromycin 500 mg in 250 mls @ 250 mls/hr 07/13/24 12:00 07/17/24 13:30 Zithromax IVPB 07/18/24 23:59 Infused Q24H TOM Infusion Cefepime HCl 2 gm in 50 mls @ 100 mls/hr 07/12/24 20:00 07/17/24 22:05 Maxipime 2 Gm/Ns 50 Ml IVPB 07/18/24 23:59 Infused Q24H TOM Infusion Insulin Aspart 2 - 5 units 07/13/24 08:00 07/18/24 07:42 Insulin Aspart (*Bkc) 100 Units/Ml SUB-Q Not Given TIDWM [facility] Protocol Insulin Aspart 1 - 2 units 07/12/24 21:00 07/17/24 21:36 Insulin Aspart (*Bkc) 100 Units/Ml SUB-Q Not Given HS [facility] Protocol Insulin Aspart 3 units 07/17/24 12:00 07/18/24 07:43 Insulin Aspart (*Bkc) 100 Units/Ml SUB-Q Not Given TIDWM [facility] Isosorbide Mononitrate 20 mg 07/13/24 16:00 07/18/24 08:37 Isosorbide Mononitrate 20 Mg Tablet PO 20 mg 0900,1600 [facility] Administration Metoprolol Succinate 25 mg 07/13/24 11:45 07/18/24 08:36 Metoprolol Succinate Ext Rel 25 Mg Tabcr PO 25 mg Q12HR [facility] Administration Oseltamivir Phosphate 30 mg 07/17/24 20:00 07/17/24 21:34 Oseltamivir Phosphate 30 Mg Capsule PO 07/22/24 19:59 30 mg Q24H TOM Administration Pantoprazole Sodium 40 mg 07/13/24 11:40 07/18/24 08:37 Pantoprazole 40 Mg Tablet PO 40 mg DAILY [facility] Administration Sodium Chloride 1 spray 07/13/24 02:38 07/13/24 04:05 Saline 0.65% Maikol Soln 44 Ml Btl NASAL 1 spray Q6HR PRN Administration Congestion Tamsulosin HCl 0.4 mg 07/13/24 11:40 07/18/24 08:36 Tamsulosin Hcl 0.4 Mg Capsule PO 0.4 mg DAILY [facility] Administration Ticagrelor 90 mg 07/13/24 11:40 07/17/24 07:52 Ticagrelor 90 Mg Tablet PO Not Given Q12HR [facility] Vitamin D 2,000 units 07/13/24 21:00 07/17/24 21:35 Cholecalciferol 1,000 Units Tablet PO 2,000 units HS [facility] Administration Radiology Results: ITS Impressions Chest X-Ray 07/12/24 14:16 IMPRESSION: 1. Airspace opacities at the lung bases, consistent with atelectasis versus pneumonia. 2. Small pleural effusions. 3. Cardiomegaly. Chest CT 07/16/24 07:14 Impression: Moderate to large bilateral pleural effusions with bibasilar atelectatic change and probable mild pulmonary edema. Suspected underlying mild emphysema. Small amount of upper abdominal ascites. Mild mediastinal lymphadenopathy, nonspecific, unchanged. Labs Labs: Laboratory Results - last 24 hr 07/17/24 07/17/24 07/17/24 11:07 14:16 16:13 WBC RBC Hgb Hct MCV MCH MCHC RDW Plt Count MPV Immature Gran % (Auto) Neut % (Auto) Lymph % (Auto) [place] % (Auto) Eos % (Auto) Baso % (Auto) Lymph # (Auto) [place] # (Auto) Eos # (Auto) Baso # (Auto) Abs Immat Gran (auto) Absolute Neuts (auto) Absolute Nucleated RBC Nucleated RBC % Platelet Estimate Anisocytosis Ovalocytes Schistocytes Puncture Site Right radial ABG pH 7.438 ABG pCO2 34.7 L ABG pO2 55.4 L ABG PO2/FiO2 Ratio 1.38 ABG HCO3 22.9 ABG O2 Saturation 90.2 L ABG O2 Content 13.1 L ABG Base Excess -0.9 A-a Gradient 189.9 Oxyhemoglobin 89.1 L Total Hemoglobin 10.4 L O2 Delivery Device Nasal cannula O2 Liters/Min 5.0 FiO2 40 Sodium Potassium Chloride Carbon Dioxide Anion Gap BUN Creatinine Estim Creat Clear Calc Estimated GFR Glucose POC Capillary Glucose 82 49 L* Calcium Total Bilirubin AST ALT Alkaline Phosphatase Total Protein Albumin 07/17/24 07/17/24 07/18/24 16:59 21:01 07:34 WBC RBC Hgb Hct MCV MCH MCHC RDW Plt Count MPV Immature Gran % (Auto) Neut % (Auto) Lymph % (Auto) [place] % (Auto) Eos % (Auto) Baso % (Auto) Lymph # (Auto) [place] # (Auto) Eos # (Auto) Baso # (Auto) Abs Immat Gran (auto) Absolute Neuts (auto) Absolute Nucleated RBC Nucleated RBC % Platelet Estimate Anisocytosis Ovalocytes Schistocytes Puncture Site ABG pH ABG pCO2 ABG pO2 ABG PO2/FiO2 Ratio ABG HCO3 ABG O2 Saturation ABG O2 Content ABG Base Excess A-a Gradient Oxyhemoglobin Total Hemoglobin O2 Delivery Device O2 Liters/Min FiO2 Sodium Potassium Chloride Carbon Dioxide Anion Gap BUN Creatinine Estim Creat Clear Calc Estimated GFR Glucose POC Capillary Glucose 135 H 98 60 L Calcium Total Bilirubin AST ALT Alkaline Phosphatase Total Protein Albumin 07/18/24 07/18/24 08:21 08:39 WBC 10.5 H RBC 3.32 L Hgb 9.7 L Hct 30.2 L MCV 91.0 MCH 29.2 MCHC 32.1 RDW 15.9 H Plt Count 141 L MPV 12.0 H Immature Gran % (Auto) 1.1 H Neut % (Auto) 91.6 H Lymph % (Auto) 2.5 L [place] % (Auto) 4.7 Eos % (Auto) 0.0 Baso % (Auto) 0.1 L Lymph # (Auto) 0.26 L [place] # (Auto) 0.5 Eos # (Auto) 0.0 Baso # (Auto) 0.0 Abs Immat Gran (auto) 0.12 H Absolute Neuts (auto) 9.6 H Absolute Nucleated RBC 0.000 Nucleated RBC % 0.0 Platelet Estimate Slightly decreased Anisocytosis 1+ Ovalocytes 1+ Schistocytes None seen Puncture Site ABG pH ABG pCO2 ABG pO2 ABG PO2/FiO2 Ratio ABG HCO3 ABG O2 Saturation ABG O2 Content ABG Base Excess A-a Gradient Oxyhemoglobin Total Hemoglobin O2 Delivery Device O2 Liters/Min FiO2 Sodium 132 L Potassium 4.1 Chloride 95 L Carbon Dioxide 23 Anion Gap 14 H BUN 94 H Creatinine 3.22 H Estim Creat Clear Calc 15 Estimated GFR 19 L Glucose 114 H POC Capillary Glucose 120 H Calcium 8.0 L Total Bilirubin 0.6 AST 35 ALT 44 Alkaline Phosphatase 93 Total Protein 6.0 L Albumin 3.2 L
--- NOTE | 2024-07-18 10:39 | PCNFU ---
Nutrition Follow-Up Complete: Inadequate oral intake related to loss of appetite as evidenced by intakes 50% Goal:Adequate PO intake at least 75% meals and supplements Pt not meeting goal. Pt current nutrition is Heart healthy. Nutrition recommendation: Encourage po intake Last recorded weight is 67.8 kg. Bowel Motility: +BM 07/17 Labs Reviewed: Hgb:9.1, HCT:28.9, Alb:3.2, NA:132, GFR:19, BUN:94, Cr:3.2, Glu:114 Meds Noted: Vit D, lasix, insulin Skin: No pressure injuries Additional Notes: Pt contiues on a heart healthy diet, intake remains poor, 0-50% at times. Supplements remain in place, Ensure Enlive TID, nutrition ice cream cups BID. Encourage po intake of meals and supplements. Monitoring intakes, weights, labs, supplement tolerance, output, meds, plan of care Follow up in 5 days
[2024-07-18 10:53] LABS: NT Pro B Type Natriuretic Pept > 30000 pg/mL (19.9-100)
[2024-07-18 11:01] LABS: Procalcitonin 0.3 ng/mL
[2024-07-18 11:31] LABS: Glucose Point of Care 208 mg/dl (65-105)
[2024-07-18] MEDS: AZITHROMYCIN 500 MG/NS 250 ML 500 MG/250 ML BAG 250 MG IVPB (12:30)
--- NOTE | 2024-07-18 12:36 | P.PNNP_ITS ---
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) * evidence of diuretic resistance noted * he remains at risk for [employer]/dialysis * however, given his clinical status, I worry he may tolerate such an intervention and it may not achieve the goal of fluid removal/improvement in pleural effusions * I tried to discuss this with the patient previously but I am not sure he much he fully understood (2) Chronic kidney disease, stage 4 (severe): Code(s): N18.4 - Chronic kidney disease, stage 4 (severe) Status: Chronic Assessment and Plan: * baseline creatinine was running ~ 2.0 - 2.6mg/dl * HOWEVER, with recent/recurrent hospitalizations, his creatinine seem to run closer to 2.3 - 2.8mg/dl * due to hypertension, diabetes, vascular disease (CAD + CHF/cardiomyopathy, hyperlipidemia, PAD, and possible KAYCEE), diuretic therapy as well as age related change * follows with Dr. Mathias for CKD management (3) Influenza: Code(s): J11.1 - Influenza due to unidentified influenza virus with other respiratory manifestations Status: Acute Assessment and Plan: * as noted by positive testing on 07/12/24 in ER * on Tamiflu for treatment * continue supportive therapy (4) Pneumonia: Qualifiers: Laterality: bilateral Lung location: lower lobe of lung Pneumonia type: due to unspecified organism Qualified Code(s): J18.9 - Pneumonia, unspecified organism Code(s): J18.9 - Pneumonia, unspecified organism Status: Acute Assessment and Plan: * thought to be secondary to influenza and possible bacterial component * recent CT imaging noted * empirically on antibiotics * blood culture negative * continue current therapy * on supplemental oxygen * Pulmonary following (5) Acute on chronic combined systolic and diastolic heart failure: Code(s): I50.43 - Acute on chronic combined systolic (congestive) and diastolic (congestive) heart failure Status: Acute Assessment and Plan: * as noted by clinical exam and recent imaging * no significant diuresis with IV medication therapy (diuretic resistance?) * more concerning is that his respiratory status remains quite tenuous (BiPAP dependent) * noted plans for thoracentesis (but waiting for Brillinta effect to wear off) * dialysis is a consideration but may be challenging: * not sure he would tolerate even temporary HD catheter placement * furthermore, unclear if fluid removal/ultrafiltration would decrease pleural effusions * Cardiology following (6) Anemia: Qualifiers: Anemia type: unspecified type Qualified Code(s): D64.9 - Anemia, unspecified Code(s): D64.9 - Anemia, unspecified Status: Acute Assessment and Plan: * likely related to ALLEN, CKD, and acute illness * follow trend of H/H * consider [facility] if declines further (7) COPD (chronic obstructive pulmonary disease): Qualifiers: COPD type: unspecified COPD Qualified Code(s): J44.9 - Chronic obstructive pulmonary disease, unspecified Code(s): J44.9 - Chronic obstructive pulmonary disease, unspecified Status: Acute Assessment and Plan: * continue nebulizer treatments and supplemental oxygen * no evidence of exacerbation -- off steroids * Pulmonary following (8) Hypertension: Qualifiers: Hypertension type: secondary to other renal disorders Qualified Code(s): I15.1 - Hypertension secondary to other renal disorders Code(s): I10 - Essential (primary) hypertension Status: Chronic Assessment and Plan: * reasonable control at this time * follow trend of hemodynamics (9) Type 2 diabetes mellitus: Qualifiers: Diabetes mellitus nursing home insulin use: without nursing home use Diabetes mellitus complication status: with kidney complications Diabetes mellitus complication detail: with chronic kidney disease Chronic kidney disease stage: stage 4 (severe) Qualified Code(s): E11.22 - Type 2 diabetes mellitus with diabetic chronic kidney disease; N18.4 - Chronic kidney disease, stage 4 (severe) Code(s): E11.9 - Type 2 diabetes mellitus without complications Status: Chronic Assessment and Plan: * follow accu-cheks * glycemic control per hospitalists Discussed case with Dr. Pñea earlier today. I had planned on discission the possibiilty of renal replacement therapy/dialysis with family given his worsening respiratory status with no significant improvement despite IV diuretic therapy but nursing informed me that hospice/palliative care has been consulted given his clinical deterioration in the last 24 hours -- this seems reasonable as I cannot guarantee that [employer]/dialysis would improve his overall declining condition. Will continue to follow. L Subjective Date/time seen: 07/18/24 12:26 Interval history: Follow-up for acute kidney injury/acute renal failure on chronic kidney disease. Breathing/respiratory status continues to deteriorate -- he is BiPAP dependent as attempts to wean resulted in worsening shortness of breath; renal function/creatinine also continues to worsen with limited diuresis despite therapy to date; per my discussion with nursing, the patient and daughter are considering hospice/palliative care as they are both not interested in invasive therapies at this time; no other acute issues/events overnight. Exam 2 Narrative: General: elderly and ill-appearing Caucasina male on BiPAP therapy Heart: normal S1 and S2; no rub Lungs: decreased breath sounds with bibasilar crackles Abdomen: soft, nontender, nondistended, positive bowel sounds Extremities: no cyanosis or clubbing; no edema Skin: warm and dry Objective Data Vital Signs Vital Signs: Vital Signs Temp Pulse Resp BP Pulse Ox O2 Del Method O2 Flow Rate 07/18/24 12:00 97.8 F 88 32 H 119/47 L 94 BiPAP 07/18/24 08:36 88 07/18/24 08:30 88 26 H 95 BiPAP 07/18/24 08:25 88 26 H 07/18/24 08:13 86 24 H 07/18/24 08:13 97 High Flow Nasal Cannula 10 07/18/24 08:00 98.3 F 85 24 H 127/51 L 95 07/18/24 06:00 87 07/18/24 04:37 98.3 F 85 31 H 112/56 L 92 07/18/24 03:55 78 07/18/24 03:55 78 23 H 95 BiPAP 07/18/24 02:40 79 23 H 07/18/24 02:34 88 23 H 07/18/24 02:34 88 23 H 95 BiPAP 07/18/24 02:00 88 07/18/24 00:30 86 25 H 94 BiPAP 07/18/24 00:00 98.2 F 87 26 H 142/53 H 94 07/17/24 23:55 85 07/17/24 23:55 85 29 H 95 BiPAP 07/17/24 22:00 86 07/17/24 21:35 90 07/17/24 20:58 98.3 F 87 29 H 141/98 H 91 07/17/24 20:49 86 23 H 07/17/24 20:42 85 22 H 07/17/24 20:42 87 21 H 94 BiPAP 07/17/24 20:00 84 07/17/24 20:00 84 29 H 91 BiPAP 07/17/24 18:00 74 07/17/24 16:00 85 07/17/24 16:00 92 BiPAP Intake/Output Intake/Output: Intake & Output 07/15/24 07/16/24 07/17/24 07/18/24 23:59 23:59 23:59 23:59 Intake Total 1780 3119 3331 1065 Output Total 1500 1050 900 750 Balance 280 2069 2431 315 Meds/Results Medications: Active Medications Generic Name Dose Route Start Last Admin Trade Name Freq PRN Reason Stop Dose Admin Acetaminophen 650 mg 07/12/24 16:33 07/14/24 20:29 Acetaminophen 325 Mg Tablet PO 650 mg Q4H PRN Administration Mild Pain (1-3) or Fever Albuterol 2 puff 07/13/24 11:30 07/15/24 11:10 Albuterol Sulfate (*Sp) Aerosol 1 Puff INHALATION 2 puff TID PRN Administration Shortness Of Breath Or Wheezing Albuterol/Ipratropium 3 ml 07/12/24 20:00 07/18/24 14:22 Ipratropium 0.5 Mg/Albuterol Sulfate 2.5 Mg Ampul.Neb 3 Ml INHALATION 3 ml Q6HRT TOM Administration Amlodipine Besylate 10 mg 07/13/24 11:40 07/18/24 08:36 Amlodipine Besylate 10 Mg Tablet PO 10 mg DAILY TOM Administration Aspirin 81 mg 07/13/24 11:40 07/18/24 08:37 Aspirin 81 Mg Enteric Tablet PO 81 mg DAILY TOM Administration Atorvastatin Calcium 40 mg 07/13/24 11:40 07/18/24 08:37 Atorvastatin 40 Mg Tablet PO 40 mg DAILY TOM Administration Benzocaine 1 lozenge 07/12/24 17:23 07/13/24 20:31 Benzocaine/Menthol (*Bkc) 18 Ea Lozenge PO 1 lozenge PRN PRN Administration Sore Throat Benzonatate 100 mg 07/12/24 17:23 07/14/24 20:31 Benzonatate 100 Mg Capsule PO 100 mg TID PRN Administration Cough Clonazepam 0.5 mg 07/13/24 11:30 07/16/24 20:51 Clonazepam (*Crx) 0.5 Mg Tablet PO 0.5 mg Q12H PRN Administration anxiety Empagliflozin 25 mg 07/13/24 11:40 07/18/24 08:36 Empagliflozin 25 Mg Tablet PO 25 mg QAM TOM Administration Furosemide 80 mg 07/18/24 17:00 Furosemide Inj 40 Mg/4 Ml Vial IV PUSH BID TOM Glucagon 1 mg 07/12/24 17:24 Glucagon For Inj 1 Mg Vial IM PRN PRN Hypoglycemia Protocol Guaifenesin 600 mg 07/12/24 18:00 07/18/24 08:37 Guaifenesin 12 Hr 600 Mg Tabcr PO 600 mg Q12HR TOM Administration Heparin Sodium (Porcine) 5,000 units 07/17/24 14:00 07/18/24 06:25 Heparin Sodium 5,000 Units/Ml Vial SUB-Q 5,000 units Q8HR TOM Administration Hydralazine HCl 25 mg 07/13/24 17:00 07/18/24 08:37 Hydralazine Hcl 25 Mg Tablet PO 25 mg BID TOM Administration Azithromycin 500 mg in 250 mls @ 250 mls/hr 07/13/24 12:00 07/17/24 13:30 Zithromax IVPB 07/18/24 23:59 Infused Q24H TOM Infusion Cefepime HCl 2 gm in 50 mls @ 100 mls/hr 07/12/24 20:00 07/17/24 22:05 Maxipime 2 Gm/Ns 50 Ml IVPB 07/18/24 23:59 Infused Q24H TOM Infusion Insulin Aspart 2 - 5 units 07/13/24 08:00 07/18/24 11:58 Insulin Aspart (*Bkc) 100 Units/Ml SUB-Q Not Given TIDWM [facility] Protocol Insulin Aspart 1 - 2 units 07/12/24 21:00 07/17/24 21:36 Insulin Aspart (*Bkc) 100 Units/Ml SUB-Q Not Given HS [facility] Protocol Insulin Aspart 3 units 07/17/24 12:00 07/18/24 11:58 Insulin Aspart (*Bkc) 100 Units/Ml SUB-Q Not Given TIDWM TOM Isosorbide Mononitrate 20 mg 07/13/24 16:00 07/18/24 08:37 Isosorbide Mononitrate 20 Mg Tablet PO 20 mg 0900,1600 TOM Administration Metoprolol Succinate 25 mg 07/13/24 11:45 07/18/24 08:36 Metoprolol Succinate Ext Rel 25 Mg Tabcr PO 25 mg Q12HR TOM Administration Oseltamivir Phosphate 30 mg 07/17/24 20:00 07/17/24 21:34 Oseltamivir Phosphate 30 Mg Capsule PO 07/22/24 19:59 30 mg Q24H TOM Administration Pantoprazole Sodium 40 mg 07/13/24 11:40 07/18/24 08:37 Pantoprazole 40 Mg Tablet PO 40 mg DAILY TOM Administration Sodium Chloride 1 spray 07/13/24 02:38 07/13/24 04:05 Saline 0.65% Maikol Soln 44 Ml Btl NASAL 1 spray Q6HR PRN Administration Congestion Tamsulosin HCl 0.4 mg 07/13/24 11:40 07/18/24 08:36 Tamsulosin Hcl 0.4 Mg Capsule PO 0.4 mg DAILY TOM Administration Ticagrelor 90 mg 07/13/24 11:40 07/17/24 07:52 Ticagrelor 90 Mg Tablet PO Not Given Q12HR [facility] Vitamin D 2,000 units 07/13/24 21:00 07/17/24 21:35 Cholecalciferol 1,000 Units Tablet PO 2,000 units HS TOM Administration Radiology Results: ITS Impressions Chest CT 07/16/24 07:14 Impression: Moderate to large bilateral pleural effusions with bibasilar atelectatic change and probable mild pulmonary edema. Suspected underlying mild emphysema. Small amount of upper abdominal ascites. Mild mediastinal lymphadenopathy, nonspecific, unchanged. Labs Labs: Laboratory Tests 07/18/24 08:39 07/18/24 08:39 Calcium 8.0 L Total Bilirubin 0.6 AST 35 ALT 44 Alkaline Phosphatase 93 NT-Pro-B Natriuret Pep > 10662 H Total Protein 6.0 L Albumin 3.2 L Procalcitonin 0.3 Microbiology 07/12/24 18:03 Blood Blood Culture - Final 07/12/24 17:48 Blood Blood Culture - Final
[2024-07-18 16:15] LABS: Glucose Point of Care 275 mg/dl (65-105)
--- NOTE | 2024-07-18 17:05 | P.DS_ITS ---
DS: Admitting Diagnosis Discharge Date 07/18/24 Admitting Diagnosis (1) Acute on chronic combined systolic and diastolic heart failure: Code(s): I50.43 - Acute on chronic combined systolic (congestive) and diastolic (congestive) heart failure Status: Acute (2) CHF exacerbation: Code(s): I50.9 - Heart failure, unspecified Status: Acute (3) Elevated troponin: Code(s): R79.89 - Other specified abnormal findings of blood chemistry Status: Acute (4) Diabetes mellitus: Qualifiers: Diabetes mellitus complication status: with other specified complication Diabetes mellitus skilled nursing insulin use: without skilled nursing use Diabetes mellitus type: type 2 Qualified Code(s): E11.69 - Type 2 diabetes mellitus with other specified complication Code(s): E11.9 - Type 2 diabetes mellitus without complications Status: Chronic (5) Protein-calorie malnutrition, mild: Code(s): E44.1 - Mild protein-calorie malnutrition Status: Acute (6) Jcotf-ox-dodcpgr kidney injury: Code(s): N17.9 - Acute kidney failure, unspecified; N18.9 - Chronic kidney disease, unspecified Status: Acute (7) Influenza: Code(s): J11.1 - Influenza due to unidentified influenza virus with other respiratory manifestations Status: Acute (8) Acute and chronic respiratory failure with hypercapnia: Code(s): J96.22 - Acute and chronic respiratory failure with hypercapnia Status: Acute (9) COPD exacerbation: Code(s): J44.1 - Chronic obstructive pulmonary disease with (acute) exacerbation Status: Acute DS: Discharge Diagnosis Discharge Diagnosis (1) Acute on chronic combined systolic and diastolic heart failure: Code(s): I50.43 - Acute on chronic combined systolic (congestive) and diastolic (congestive) heart failure Status: Acute (2) CHF exacerbation: Code(s): I50.9 - Heart failure, unspecified Status: Acute (3) Elevated troponin: Code(s): R79.89 - Other specified abnormal findings of blood chemistry Status: Acute (4) Diabetes mellitus: Qualifiers: Diabetes mellitus type: type 2 Diabetes mellitus skilled nursing insulin use: without terminal block assembler use Diabetes mellitus complication status: with other specified complication Qualified Code(s): E11.69 - Type 2 diabetes mellitus with other specified complication Code(s): E11.9 - Type 2 diabetes mellitus without complications Status: Chronic (5) Protein-calorie malnutrition, mild: Code(s): E44.1 - Mild protein-calorie malnutrition Status: Acute (6) Invvf-xo-fyiaeup kidney injury: Code(s): N17.9 - Acute kidney failure, unspecified; N18.9 - Chronic kidney disease, u nspecified Status: Acute (7) Influenza: Code(s): J11.1 - Influenza due to unidentified influenza virus with other respiratory manifestations Status: Acute (8) Acute and chronic respiratory failure with hypercapnia: Code(s): J96.22 - Acute and chronic respiratory failure with hypercapnia Status: Acute (9) COPD exacerbation: Code(s): J44.1 - Chronic obstructive pulmonary disease with (acute) exacerbation Status: Acute DS: Summary Hospital Course Hospital Course: 79 y/o M with history of multiple comorbidities including COPD, combined heart failure, chronic respiratory failure, aortic stenosis, present ED with a chief complaint of weakness, shortness of breath, and cough. The patient presents here from home via EMS for further evaluation of weakness, shortness of breath, and cough. He was admitted from 07/03/24-07/06/24 for acute on chronic respiratory failure requiring BiPAP and titration of his diuretics. Patient also treated for COPD exacerbation and suspected pneumonia. He was recently treated for pneumonia with 2 different antibiotics (cefdinir and doxycycline) and completed this course yesterday. He reports that since he was discharged he has slowly been having increased shortness of breath over the last few days. Then developed cough, weakness, increased swelling to his bilateral lower extremities for the past 2 days. He denies associated fevers, chest pain, nausea, vomiting or diarrhea. Initial VS at presentation: 97.6? F, HR 83, RR 19, 127/53, and 95% on 2L NC (baseline requirement). ED workup showed: WBC 11.0, hemoglobin 11.5 (near baseline), creatinine 2.9 and GFR 21 (previously 2.57 and GFR 24 on 07/06/2024), lactic 2.4, glucose 228, initial troponin 0.052, BNP greater than 30,000, and tested positive for flu A. CXR showed airspace opacities in the lung bases consistent with atelectasis versus pneumonia, small pleural effusions, and cardiomegaly. Upon arrival to ED, the following med issues have been addressed during hospitalization Pneumonia: Qualifiers: Laterality: bilateral Lung location: lower lobe of lung Pneumonia type: due to unspecified organism Qualified Code(s): J18.9 - Pneumonia, unspecified organism Code(s): J18.9 - Pneumonia, unspecified organism Status: Acute Assessment and Plan: - did not meet SIRS criteria, however lactic elevated at 2.4. Blood cultures obtained on 07/12, follow. Plan for 2L bolus. trend lactic down. - CXR: 1. Airspace opacities at the lung bases, consistent with atelectasis versus pneumonia. 2. Small pleural effusions. 3. Cardiomegaly. Possible community-acquired pneumonia due to viral infection and better infection Started on ceftriaxone and azithromycin on to , exchanged to cefepime, azithromycin, and vancomycin on 07/12 and Tamiflu MRSA negative on cefepime and azithromycin CT: . Moderate to large bilateral pleural effusions with bibasilar atelectatic change and probable mild pulmonary edema.Suspected underlying mild emphysema. Consult full time for evaluation treatment Appreciate full time consultation Pleural effusion Moderate to large bilateral pleural effusions with bibasilar atelectatic change and probable mild pulmonary edema. Patient need thoracentesis for treatment and diagnosis hold Brilinta p.o for thoracentesis Influenza: Code(s): J11.1 - Influenza due to unidentified influenza virus with other respiratory manifestations Status: Acute Assessment and Plan: tested positive for influenza A on 07/11 - CXR c/f PNA - Tamiflu 75 mg BID, symptoms worsened/developed cough in the last 2 days Acute on chronic obstructive pulmonary disease, COPD exacerbation, acute on chronic respiratory failure Qualifiers: COPD type: unspecified COPD Qualified Code(s): J44.9 - Chronic obstructive pulmonary disease, unspecified Code(s): J44.9 - Chronic obstructive pulmonary disease, unspecified Status: Acute Assessment and Plan: COPD exacerbation due to pneumonia and influenza effect Continue nebulizers Continue O2 therapy to keep pulse ox above 92 Patient is placed on BiPAP Elevated troponin: Code(s): R79.89 - Other specified abnormal findings of blood chemistry Status: Acute Assessment and Plan: - EKG, initial: Sinus rhythm, rate 82, left atrial enlargement, ST-T-wave abnormality in diffuse leads consider ischemia, baseline artifact. When compared to EKG done on 06/25/2024, there are no significant changes. - Troponin: 0.052 (previously 0.035 on 07/03/2024), 3 and 6 hour ordered - ASA 324 given, continue Brilinta 90 mg q.12 hours p.o. -echo, previous (02/2024): He systolic function moderately reduced, estimated EF 40-45%, grade 3 diastolic dysfunction. See report for details. - cardiac catheterization, previous, 06/13/23: Dr. 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 LM 70-80%, LAD diffuse disease with severe stenosis in apical segment, LCx prox 80%, RCA with diffuse disease with severe stenosis in mid PDA; PCI to prox LCx and PCI to LM. 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 IV push Patient does not have interest of life vest Chronic kidney disease, stage 4 (severe): Code(s): N18.4 - Chronic kidney disease, stage 4 (severe) Status: Chronic Assessment and Plan: - creatinine 2.91 and GFR 21, previously 2.57 and GFR 24 on Patient received fluid resuscitation 2 L bolus -> 125 mL/hr x1L. monitor toleration, hx of HF. Creatinine is trending up slowly consult ocean export agent for evaluation treatment Type 2 diabetes mellitus: Qualifiers: Diabetes mellitus skilled nursing insulin use: without terminal block assembler use Diabetes mellitus complication status: with kidney complications Diabetes mellitus complication detail: with chronic kidney disease Chronic kidney disease stage: stage 4 (severe) Qualified Code(s): E11.22 - Type 2 diabetes mellitus with diabetic chronic kidney disease; N18.4 - Chronic kidney disease, stage 4 (severe) Code(s): E11.9 - Type 2 diabetes mellitus without complications Status: Chronic Assessment and Plan: - hypoglycemia protocol - POC blood glucose ACHS - home medication: Hold Jardiance, glipizide. A1C 7.5% on 06/25/2024 Continue insulin sliding scale a.c. and q.h.s. Hypertension: Qualifiers: Hypertension type: secondary to other renal disorders Qualified Code(s): I15.1 - Hypertension secondary to other renal disorders Code(s): I10 - Essential (primary) hypertension Status: Chronic Assessment and Plan: Blood pressure is controlled Continue metoprolol, Imdur, hydralazine, Lasix, amlodipine Patient still has significant dyspnea and cough, continue inpatient treatment Diet: Heart healthy GI Prophylaxis: Not currently indicated DVT Prophylaxis: SCDs Lines: Peripheral Consult Code Status: DNR Patient conditions continue to deteriorate even patient is on medical managements of acute and chronic medical issues. Patient has been on BiPAP in past 2 days, patient has severe dyspnea on BiPAP support. Patient is at the end stage of life, will consult hospice care team per patient's request. Per RN report, the patient's daughter and patient request us to consult hospice care. After evaluation by hospice care team, patient is qualified for inpatient hospice. I will discharge patient today to hospice care team Time Spent with Patient Time attestation: Total time spent providing and/or coordinating discharge services: Exam Narrative: GENERAL: Ill-appearing, in no acute distress. Well-nourished. - EYES: EOMI. Anicteric. - HENT: Moist mucous membranes. - LUNGS: Crackles bilateral base, but i mproving. Tachypnea, scattered wheezing, distant breath sounds tachypnea - CARDIOVASCULAR: Regular rate and rhyth m. No murmur. No JVD. Tachycardia - ABDOMEN: Soft, non-tender and non-dist ended. No palpable masses. - EXTREMITIES: No edema. Peripheral puls es 2+. Non-tender. - NEUROLOGIC: No focal neurological defi cits. CN II-XII grossly intact. General weakness - PSYCHIATRIC: Awake, Alert and oriented x 3. mood and affect: Anxiety - SKIN: No rashes or lesions. Warm. - LYMPH: No cervical lymphadenopathy. DS: Data Data Completed and Pending Labs on day of discharge: Labs from last 24 hours 07/18/24 07/18/24 07/18/24 16:01 11:16 08:39 WBC 10.5 H RBC 3.32 L Hgb 9.7 L Hct 30.2 L MCV 91.0 MCH 29.2 MCHC 32.1 RDW 15.9 H Plt Count 141 L MPV 12.0 H Immature Gran % (Auto) 1.1 H Neut % (Auto) 91.6 H Lymph % (Auto) 2.5 L [place] % (Auto) 4.7 Eos % (Auto) 0.0 Baso % (Auto) 0.1 L Lymph # (Auto) 0.26 L [place] # (Auto) 0.5 Eos # (Auto) 0.0 Baso # (Auto) 0.0 Abs Immat Gran (auto) 0.12 H Absolute Neuts (auto) 9.6 H Absolute Nucleated RBC 0.000 Nucleated RBC % 0.0 Platelet Estimate Slightly decreased Anisocytosis 1+ Ovalocytes 1+ Schistocytes None seen Sodium 132 L Potassium 4.1 Chloride 95 L Carbon Dioxide 23 Anion Gap 14 H BUN 94 H Creatinine 3.22 H Estim Creat Clear Calc 15 Estimated GFR 19 L Glucose 114 H POC Capillary Glucose 275 H 208 H Calcium 8.0 L Total Bilirubin 0.6 AST 35 ALT 44 Alkaline Phosphatase 93 NT-Pro-B Natriuret Pep > 63928 H Total Protein 6.0 L Albumin 3.2 L Procalcitonin 0.3 07/18/24 07/18/24 07/17/24 08:21 07:34 21:01 WBC RBC Hgb Hct MCV MCH MCHC RDW Plt Count MPV Immature Gran % (Auto) Neut % (Auto) Lymph % (Auto) [place] % (Auto) Eos % (Auto) Baso % (Auto) Lymph # (Auto) [place] # (Auto) Eos # (Auto) Baso # (Auto) Abs Immat Gran (auto) Absolute Neuts (auto) Absolute Nucleated RBC Nucleated RBC % Platelet Estimate Anisocytosis Ovalocytes Schistocytes Sodium Potassium Chloride Carbon Dioxide Anion Gap BUN Creatinine Estim Creat Clear Calc Estimated GFR Glucose POC Capillary Glucose 120 H 60 L 98 Calcium Total Bilirubin AST ALT Alkaline Phosphatase NT-Pro-B Natriuret Pep Total Protein Albumin Procalcitonin Discharge Plan Discharge Attending physician on discharge: Mike Kim Consulting providers: Cody Sandoval; Kevin Armijo; Lyle Soto Discharging Clinician: Mike Kim Anticipated Discharge Date/Time: 07/18/24 17:06 Patient Disposition: Hospice - Medical Facility Activity: as tolerated Diet: as tolerated Discharge Instructions: Per Care Coordination: [facility] to resume ([phone]). Patient Instructions: Ticagrelor (By mouth), Heart Failure (GEN), Influenza (GEN), COPD (Chronic Obstructive Pulmonary Disease) (GEN), Bleeding Disorders (GEN) Patient Language: French Stand Alone Forms: General Discharge Information Discharge Medications: Continued aspirin [Adult Low Dose Aspirin] 81 mg tablet,delayed release (DR/EC) 81 mg PO DAILY cholecalciferol (vitamin D3) 50 mcg (2,000 unit) capsule 50 mcg PO HS albuterol sulfate 1.25 mg/3 mL solution for nebulization 1.25 mg inhalation Q4-6H PRN (Reason: shortness of breath or wheezing) Qty: 90 2RF albuterol sulfate 90 mcg/actuation HFA aerosol inhaler 2 puff INHALATION TID PRN (Reason: Shortness Of Breath Or Wheezing) clonazepam 0.5 mg tablet 0.5 mg PO Q12H PRN (Reason: anxiety) hydralazine 25 mg Tablet 25 mg PO BID Qty: 60 1RF amlodipine 10 mg Tablet 10 mg PO DAILY Qty: 30 1RF insulin aspart U-100 [Novolog U-100 Insulin aspart] 100 unit/mL Solution 1 - 2 unit subcut HS Qty: 10 0RF Protocol: Insulin Corrective Low-Dose Condition: glucose < 70 mg/dl Dose/Route: Follow Hypoglycemia Order Condition: glucose 70-200 mg/dl Dose/Route: No additional insulin Condition: glucose 201-250 mg/dl Dose/Route: 1 units sub-Q Condition: glucose 251-300 mg/dl Dose/Route: 1 units sub-Q Condition: glucose 301-350 mg/dl Dose/Route: 2 units sub-Q Condition: glucose 351-400 mg/dl Dose/Route: 2 units sub-Q Condition: glucose > 400 mg/dl Dose/Route: Call insulin aspart U-100 [Novolog U-100 Insulin aspart] 100 unit/mL Solution 2 - 5 unit subcut TIDWM Qty: 10 0RF Protocol: Insulin Corrective Low-Dose Condition: glucose < 70 mg/dl Dose/Route: Follow Hypoglycemia Order Condition: glucose 70-200 mg/dl Dose/Route: No additional insulin Condition: glucose 201-250 mg/dl Dose/Route: 2 units sub-Q Condition: glucose 251-300 mg/dl Dose/Route: 3 units sub-Q Condition: glucose 301-350 mg/dl Dose/Route: 4 units sub-Q Condition: glucose 351-400 mg/dl Dose/Route: 5 units sub-Q Condition: glucose > 400 mg/dl Dose/Route: Call MD Protocol Text: *No Correction Dose at Bedtime* furosemide 80 mg Tablet 80 mg PO DAILY Qty: 30 1RF (DME) Accu-Chek Flory Plus test strp Strip See Rx Instructions .ROUTE .MEDSUPPLY Qty: 100 4RF Rx Instructions: Use to check BS BID ticagrelor 90 mg tablet 90 mg PO Q12H Qty: 60 4RF glipizide 5 mg tablet 5 mg PO DAILY Qty: 90 0RF tamsulosin 0.4 mg capsule 0.4 mg PO DAILY Qty: 90 1RF pantoprazole 40 mg tablet,delayed release (DR/EC) 40 mg PO DAILY Qty: 90 1RF metoprolol succinate [Toprol XL] 25 mg tablet extended release 24 hr 25 mg PO Q12H Qty: 180 1RF Jardiance 25 mg tablet 25 mg PO QAM Qty: 30 6RF isosorbide mononitrate 20 mg tablet See Rx Instructions .ROUTE .COMPLEX Qty: 180 0RF Dose Instruction: TAKE 1 TABLET BY MOUTH TWICE A DAY -GIVE DOSES 7 HOURS APART Rx Instructions: TAKE 1 TABLET BY MOUTH TWICE A DAY -GIVE DOSES 7 HOURS APART atorvastatin 40 mg tablet See Rx Instructions .ROUTE .COMPLEX Qty: 90 1RF Dose Instruction: TAKE 1 TABLET BY MOUTH EVERY DAY IN THE EVENING Rx Instructions: TAKE 1 TABLET BY MOUTH EVERY DAY IN THE EVENING Date of admission: 07/13/24 08:50 Primary Care Provider: Ace Tavares Admitting Provider: Quinton Crawford Attending physician on admission: Quinton Crawford Condition: Stable
== END 2024-07-18 17:07 | disposition hospice, inpatient (51) | DRG 193 ==
LOC: ANHED 16:42 → ANHIMU 17:15
PROVIDERS: Internal Medicine Nephrology; Internal Medicine Pulmonary Disease; Physician Assistant; Student in an Organized Health Care Education/Training Program; Admitting Provider Internal Medicine; Emergency Provider Emergency Medicine; PCP Internal Medicine; Visit Provider Hospitalist
DX: J10.08 Influenza due to other identified influenza virus with other specified pneumonia (principal); I50.43 Acute on chronic combined systolic (congestive) and diastolic (congestive) heart failure; J96.22 Acute and chronic respiratory failure with hypercapnia; I13.0 Hypertensive heart and chronic kidney disease with heart failure and stage 1 through stage 4 chronic kidney disease, or unspecified chronic kidney disease; N18.4 Chronic kidney disease, stage 4 (severe); E44.1 Mild protein-calorie malnutrition; N17.9 Acute kidney failure, unspecified; J90 Pleural effusion, not elsewhere classified; J12.89 Other viral pneumonia; J44.0 Chronic obstructive pulmonary disease with (acute) lower respiratory infection; J44.1 Chronic obstructive pulmonary disease with (acute) exacerbation; J15.9 Unspecified bacterial pneumonia; E11.22 Type 2 diabetes mellitus with diabetic chronic kidney disease; K21.9 Gastro-esophageal reflux disease without esophagitis; I35.0 Nonrheumatic aortic (valve) stenosis; I25.10 Atherosclerotic heart disease of native coronary artery without angina pectoris; I70.1 Atherosclerosis of renal artery; I65.23 Occlusion and stenosis of bilateral carotid arteries; I73.9 Peripheral vascular disease, unspecified; Z66 Do not resuscitate; Z99.81 Dependence on supplemental oxygen; Z79.82 Long term (current) use of aspirin; Z86.718 Personal history of other venous thrombosis and embolism; I25.2 Old myocardial infarction; Z95.5 Presence of coronary angioplasty implant and graft; Z98.49 Cataract extraction status, unspecified eye
CPT/HCPCS: 36415; 36600; 71045; 71046; 71250; 80048; 80053; 81001; 82805; 82948; 83605; 83735; 83880; 84145; 84484; 85018; 85025; 85610; 85730; 87040; 87637; 87641; 93005; 94002; 94640; 96365; 96366; 96367; 96368; 96375; 99285; A9270; C8929; G0378; J0456; J0692; J0696; J1644; J1815; J1940; J2919; J3370; J7030; J7512; Q9957

== ENCOUNTER 2024-07-18 17:08 | HOS | payer OTHER, MEDICARE, SELFPAY ==
--- OUTSIDE RECORDS SUMMARY | 2024-07-18 17:37 | XMS_ITS | Encounter Summary ---
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
--- OUTSIDE RECORDS SUMMARY | 2024-07-18 17:37 | XMS_ITS | Clinical Summary ---
Author Organization [facility] Address [address] [place] [id number] Phone Care Team Providers Care Safety Council Director Name Role Phone KamilalissetteAce adamson DO Primary Care Provider [phone] Allergies No known active allergies Medications Medication [...] 2010 Influenza Vaccine (#1) 2024 Care Teams Safety Council Director Relationship Specialty Start Date End Date Ace Tavares DO [address] [place] [address] PCP - General Internal Medicine 10/31/18
--- OUTSIDE RECORDS SUMMARY | 2024-07-18 17:37 | XMS_ITS | Clinical Summary ---
Author Organization [facility] Address [address] [place] [address] Phone Care Team Providers Care Plaster Caster Name Role Phone KmailalissetteAce adamson Primary Care Provider Allergies No known [...] - 6.0 % 02/13/2019 4:52 AM CDT [facility] Est Average Glucose 139.9 mg/dL 02/13/2019 4:52 AM CDT [facility] Blood specimen (specimen) Venipuncture / Unknown 02/13/2019 4:14 AM CDT 02/13/2019 4:20 AM CDT Narrative [facility] - 02/13/2019 4:52 AM CDT Specimens containing greater than 5% of Hemoglobin F may result in lower than expected % HbA1C results. us Mason Sweeney DO CHEMISTRY ORDERABLES Final R esult Performing Organization Address City/State/[facility] Co de Phone Number [facility] [address] [place] [address], from Last 3 Months or Most Recently Relevant to Health Maintenance Insurance MEDICARE C [employer] Advance Directives * Full Code (Latest Code Status on File) Date Activated Date Inactivated Comments 02/12/2019 4:03 PM 02/14/2019 3:46 PM CPR-Full Pamela tment: FULL ARREST: Attempt Resuscitation/CPR wit intubation and mechanical ventilation. PRE-ARREST: Use entire range of life support measures to stabilize the patient. Care Teams Plaster Caster Relationship Specialty Start Date End Date Ace Tavares DO [facility] [facility] [address] [place] [address] PCP - General Internal Medicine 02/12/19
--- OUTSIDE RECORDS SUMMARY | 2024-07-18 17:37 | XMS_ITS | Clinical Summary ---
Author Organization [facility] Address [address] [place] [id number] Care Team Providers Care Russian Language Instructor Name Role Phone Ace Tavares DO Primary Care Provider [phone] Tony Hernandez MD Unavailable [phone] Leatha Ramirez ANP-BC Unavailable Unavailab le Active [...] Payer ID:[id number] (NAIC) Type:Not on file Address: [place] [id number] Care Teams Russian Language Instructor Relationship Specialty Start Date End Date Ace Tavares DO [address] [facility] [address] [place] [id number] PCP - General INTERNAL MEDICINE 11/05/15 Tony Hernandez MD [address] [address] [employer] Consultant CARDIOVASCULAR DISEASE 11/05/15 Leatha Ramirez, ANP- [address] [address] Nurse Practitioner NURSE PRACTITIONER 04/14/16
--- OUTSIDE RECORDS SUMMARY | 2024-07-18 17:38 | XMS_ITS | Clinical Summary ---
Author Organization [facility] (formerly [facility]) at the [facility] Office Center Address [address] [place] [address] Care Team Providers Care Neighborhood Conservation Officer Name Role Phone Ace Tavares DO Primary Care Provider [phone] Becky Cisneros MD Unavailable [phone] Allergies No known active allergies Medications atorvastatin [...] 07/01/2023 Assessment & Plan (07/01/2023 11:59 AM NAUMKEAG OPERATOR): LVEF was 45%. Continue metoprolol and Bidil. NSTEMI (non-ST elevated myocardial infarction) ( [facility]) 06/12/2023 Protein-calorie malnutrition, moderate ([facility]) 06/12/2023 Coronary artery disease 05/19/2023 Assessment & Plan (07/01/2023 11:59 AM NAUMKEAG OPERATOR): Status post successful complex PCI of the left main LAD and circumflex. The patient is asymptomatic. Continue aspirin and Brilinta. Cardiorenal syndrome 05/17/2023 Chronic kidney disease 05/17/2023 CKD (chronic kidney disease) stage 4, GFR 15-29 ml/min ([facility]) 05/16/2023 Systolic congestive heart failure ([facility]) 05/06 Murmur, heart 05/15/2023 Renal insufficiency 05/15/2023 History of CHF (congestive heart failure) 2022 Dizziness 04/02/2019 Dyslipidemia 04/02/2019 H/O: stroke 04/02/2019 PAOD (peripheral arterial occlusive disease) ([facility]) 04/02/2019 Paroxysmal A-fib ([facility]) 04/02/2019 Essential hypertension 03/19/2019 Assessment & Plan (03/19/2019 10:57 AM CDT): Controlled. Pre-operative clearance 03/19/2019 Assessment & Plan (03/19/2019 10:57 AM CDT): Limited aerobic capacity. Recommend pharmacological stress test Stenosis of left carotid artery 03/01/2019 Assessment & Plan (04/11/2019 9:47 AM NAUMKEAG OPERATOR): Patient has prior left hemispheric stroke with [...] 02/12/2019 Assessment & Plan (04/11/2019 9:46 AM NAUMKEAG OPERATOR): Per patient blood glucose levels remain controlled. Continue current regimen per primary care visit Dysarthria 02/12/2019 Elevated serum creatinine 02/12/2019 Expressive aphasia 02/12/2019 Hyperlipemia 02/12/2019 Assessment & Plan (07/01/2023 11:59 AM NAUMKEAG OPERATOR): Continue atorvastatin 40 mg daily. Assessment & Plan (04/11/2019 9:46 AM NAUMKEAG OPERATOR): For patient cholesterol levels remain controlled. Continue current statin therapy per Cardiology recommendations. Assessment & Plan (03/19/2019 10:56 AM CDT): Agree with statin. Left-sided weakness 02/12/2019 Smoker 02/12/2019 Assessment & Plan (04/11/2019 9:48 AM NAUMKEAG OPERATOR): Unfortunately patient continues to smoke. Greater than [...] quit within 3 months period Atherosclerosis of [place] of both lower extremities with intermittent claudication 11/19/2016 Carotid occlusion, right 11/12/2016 Assessment & Plan (03/27/2019 2:33 PM CDT): Known chronic occlusion of the right internal carotid artery that does not require surgical intervention. Continue ongoing risk factor modification. Assessment & Plan (03/19/2019 10:56 AM CDT): Recommend nuclear stress test before clearance Atherosclerosis of [place] of extremity with intermittent claudication [...] materials from doctor or pharmacy Never 08/25/2023 [facility] Utilities Answer Date Recorded In the past [...] week 06/13/2023 How often do you attend confucianism or rastafarian serv ices? Never 06/13/2023 Do you belong to any clubs o r organizations such as confucianism groups, unions, fraternal or athletic groups, or [...] to sleep or slept in a senior living (including now)? No 06/13/2023 Personal Safety Answer Date Recorded Have you ever been in or are you currently in a harmful physical or emotional relationship or is someone making you feel afraid or unsafe? Denies 06/12/2023 Sex and Gender Information Value Date Recorded Sex Assigned at Not on file Legal Sex Male 10:52 AM NAUMKEAG OPERATOR Gender Identity Not on file Sexual Orientation [...] 59.9 kg (132 lb) 08/01/2023 3:09 PM NAUMKEAG OPERATOR Height 167.6 cm (5' 6 ) 08/01/2023 3:09 PM NAUMKEAG OPERATOR Body Mass Index 21.31 08/01/2023 3:09 PM NAUMKEAG OPERATOR Plan of Treatment Health Maintenance Due Date [...] Completed 08/21/2013 Medical Devices Implanted Type Area Loan Review Analyst Device Identifier Shelf Expiration Date Model / Serial / Lot Medtronic [facility] Vasc Surgery 3.5 X 12mm [place] Rx Coronary Stent [id number] - [id number] Implanted:Qty: 1 [facility]13[facility] 11/09/2025 [id number] / / [id number] Medtronic [facility] Surgery 3.5 X 12mm [place] Rx Coronary Stent [id number] - [id number] Implanted:Qty: 1 on 06/13/2023 [facility] Surgery 02/03/2026 [id number] / / [id number] 001 Medtronic Inc Protege Gps Exprt 9mm .079in 60mm 120cm Otw Delivery System Self - [id number] Implanted:Qty: 1 on 06/13/2023 by Luke Pablo MD at [facility] Medtronic [facility] 11/07/2023 [id number] 0-120 / / [id number] Medtronic Inc Everflex Entrust 8mm 60mm 120cm Self Expand Triaxial Low Profile - [id number] Implanted:Qty: 1 on 06/13/2023 by Luke Pablo MD at [facility] Medtronic [facility] 01/16/2026 [id number] 0-120 / / [id number] Medtronic Inc Everflex Od7 Mm L30 Mm L120 Cm Self Expand Delivery Catheter System Spiral Cell Peak To Peak Connection Node Peripheral Stent Vascular Accepts .035 In Guidewire 6 Fr Introducer Sheath 5. Implanted:Qty: 1 on 06/13/2023 by Luke Pablo MD at [facility] Medtronic [facility] 01/03/2026 [id number] 0-120 / / [id number] Cordis Mynxgrip 6-7fr Balloon Catheter Integrate Sealant Lock Latex Free [id number] - [id number] Implanted:Qty: 1 on 06/13/2023 by Luke Pablo MD at [facility] 08/03/2023 [id number] / / [id number] Procedures Procedure Name Priority Date/Time Associated Diagnosis Comments EGFR Routine 06/19/2023 5:10 AM NAUMKEAG OPERATOR HEMOGLOBIN A1C STAT 05/14/2023 5:27 AM NAUMKEAG OPERATOR CTA ABDOMINAL AORTA AND BILATERAL ILIOFEMORAL RUNOFF Routine 08/21/2013 2:17 PM CDT from Last 3 Months or Most Recently Relevant to Health Maintenance Results * eGFR (06/19/2023 5:10 AM NAUMKEAG OPERATOR) eGFR 33 mL/min/1. 73 m2 SHERYL DURBIN [...] last reviewed 2021. Blood 06/19/2023 5:10 AM NAUMKEAG OPERATOR 06/19/2023 5:30 AM NAUMKEAG OPERATOR Leatha Hassan NP LAB BLOOD ORDERABLES F inal Result SHERYL DURBIN [address] Department [place] [address] * (ABNORMAL) Hemoglobin A1c (05/14/2023 5:27 AM NAUMKEAG OPERATOR) Hgb A1C 6.5(H) 4.0 - 5.6 % SHERYL VIVEROS Estimated Average Glucose 140 mg/dL SHERYL VIVEROS Comment: The ADA recommends reporting an estimated Average Glucose (eAG) with all Hemoglobin A1c results using the equation derived from a study of 507 normal and diabetic adults. Minority populations were underrepresented and children were not included. (Diabetes Care 31:6147-9945, 2008). The eAG is not equivalent to a fasting glucose. Blood 05/14/2023 5:27 AM NAUMKEAG OPERATOR 05/14/2023 5:30 AM NAUMKEAG OPERATOR us Lc Dunbar MD LAB BLOOD ORDERABLES Final Result SHERYL [address] [facility] Department [place] [address] * CTA Abdominal Aorta And Bilateral Iliofemoral [...] agrees with it. [facility]# Date Time Exam [id number] Aug 21, 2013 14:17:[id number] Angio Abd & AIF wwo con [...] gallbladder were communicated to Dr. Parker's medical resident Lisa Cowan by Dr. Schaffer at 4:00 [...] this written report and agrees with it. [facility]# Date Time Exam [id number] Aug 21, 2013 14:17:[id number] Angio Abd & AIF wwo con [...] gallbladder were communicated to Dr. Parker's medical resident Lisa Cowan by Dr. Schaffer at 4:00 [...] Advance Directives For more information, please contact: [phone] * Full Code (Latest Code Status on File) Date Activated Date Inactivated Comments 06/12/2023 8:49 AM 06/19/2023 8:52 PM * Full Code Date Activated Date Inactivated Comments 05/14/2023 3:50 AM 05/21/2023 12:01 AM Care Teams Neighborhood Conservation Officer Relationship Specialty Start Date End Date Ace Tavares DO PCP - General Internal Medicine 02/22/19 Becky Cisneros MD Computer Technical Support Specialist Cardiovascular Disease 03/19/19
--- OUTSIDE RECORDS SUMMARY | 2024-07-18 17:38 | XMS_ITS | Referral Summary ---
Author Organization [facility] at the [facility] Office Center Address [address] [place] [address] Care Team Providers Care Actuarial Technician Name Role Phone Ace Tavares DO Primary Care Provider [phone] Becky Cisneros MD Unavailable [phone] Allergies No known active allergies Medications atorvastatin [...] 07/01/2023 Assessment & Plan (07/01/2023 11:59 AM COLOR MAKER FORMULATOR): LVEF was 45%. Continue metoprolol and Bidil. NSTEMI (non-ST elevated myocardial infarction) ( [facility]) 06/12/2023 Protein-calorie malnutrition, moderate ([facility]) 06/12/2023 Coronary artery disease 05/19/2023 Assessment & Plan (07/01/2023 11:59 AM COLOR MAKER FORMULATOR): Status post successful complex PCI of the left main LAD and circumflex. The patient is asymptomatic. Continue aspirin and Brilinta. Cardiorenal syndrome 05/17/2023 Chronic kidney disease 05/17/2023 CKD (chronic kidney disease) stage 4, GFR 15-29 ml/min ([facility]) 05/16/2023 Systolic congestive heart failure ([facility]) 05/06 Murmur, heart 05/15/2023 Renal insufficiency 05/15/2023 History of CHF (congestive heart failure) 2022 Dizziness 04/02/2019 Dyslipidemia 04/02/2019 H/O: stroke 04/02/2019 PAOD (peripheral arterial occlusive disease) ([facility]) 04/02/2019 Paroxysmal A-fib ([facility]) 04/02/2019 Essential hypertension 03/19/2019 Assessment & Plan (03/19/2019 10:57 AM CDT): Controlled. Pre-operative clearance 03/19/2019 Assessment & Plan (03/19/2019 10:57 AM CDT): Limited aerobic capacity. Recommend pharmacological stress test Stenosis of left carotid artery 03/01/2019 Assessment & Plan (04/11/2019 9:47 AM COLOR MAKER FORMULATOR): Patient has prior left hemispheric stroke with [...] 02/12/2019 Assessment & Plan (04/11/2019 9:46 AM COLOR MAKER FORMULATOR): Per patient blood glucose levels remain controlled. Continue current regimen per primary care visit Dysarthria 02/12/2019 Elevated serum creatinine 02/12/2019 Expressive aphasia 02/12/2019 Hyperlipemia 02/12/2019 Assessment & Plan (07/01/2023 11:59 AM COLOR MAKER FORMULATOR): Continue atorvastatin 40 mg daily. Assessment & Plan (04/11/2019 9:46 AM COLOR MAKER FORMULATOR): For patient cholesterol levels remain controlled. Continue current statin therapy per Cardiology recommendations. Assessment & Plan (03/19/2019 10:56 AM CDT): Agree with statin. Left-sided weakness 02/12/2019 Smoker 02/12/2019 Assessment & Plan (04/11/2019 9:48 AM COLOR MAKER FORMULATOR): Unfortunately patient continues to smoke. Greater than [...] quit within 3 months period Atherosclerosis of [place] of both lower extremities with intermittent claudication 11/19/2016 Carotid occlusion, right 11/12/2016 Assessment & Plan (03/27/2019 2:33 PM CDT): Known chronic occlusion of the right internal carotid artery that does not require surgical intervention. Continue ongoing risk factor modification. Assessment & Plan (03/19/2019 10:56 AM CDT): Recommend nuclear stress test before clearance Atherosclerosis of [place] of extremity with intermittent claudication [...] materials from doctor or pharmacy Never 08/25/2023 [facility] Utilities Answer Date Recorded In the past 12 months has th e [employer], gas, oil, or water [employer] threatened to shut off services in your home? No 06/13/2023 Social Connection and Isolation Panel [NHANES] A nswer Date Recorded In a typical week, how many times do you talk on the phone with family, friends, or neighbors? Once a week 06/13/2023 How often do you get together with friends or re latives? Once a week 06/13/2023 How often do you attend episcopalian or mandaeism serv ices? Never 06/13/2023 Do you belong to any clubs o r organizations such as episcopalian groups, unions, fraternal or athletic groups, or [...] place to sleep or slept in a fdc (including now)? No 06/13/2023 Personal Safety Answer Date Recorded Have you ever been in or are you currently in a harmful physical or emotional relationship or is someone making you feel afraid or unsafe? Denies 06/12/2023 Sex and Gender Information Value Date Recorded Sex Assigned at Not on file Legal Sex Male 10:52 AM COLOR MAKER FORMULATOR Gender Identity Not on file Sexual Orientation [...] 59.9 kg (132 lb) 08/01/2023 3:09 PM COLOR MAKER FORMULATOR Height 167.6 cm (5' 6 ) 08/01/2023 3:09 PM COLOR MAKER FORMULATOR Body Mass Index 21.31 08/01/2023 3:09 PM COLOR MAKER FORMULATOR Plan of Treatment Not on file Medical Devices Implanted Type Area Fruit And Vegetable Inspector Device Identifier Shelf Expiration Date Model / Serial / Lot Medtronic [facility] Vas Surgery 3.5 X 12mm [place] Rx Coronary Stent [id number] - [id number] Implanted:Qty: 1 on 06/13/2023 by Luke Pablo MD at [facility] Medtronic [facility] Vasc Surgery 11/09/2025 [id number] / / [id number] Medtronic [facility] Surgery 3.5 X 12mm [place] Rx Coronary Stent [id number] - [id number] Implanted:Qty: 1 on 06/13/2023 by Luke Pablo MD at [facility] Medtronic [facility] Vasc Surgery 02/03/2026 [id number] / / [id number] 001 Medtronic Inc Protege Gps Exprt 9mm .079in 60mm 120cm Otw Delivery System Self - [id number] Implanted:Qty: 1 on 06/13/2023 by Luke Pablo MD at [facility] Medtronic Inc 11/07/2023 [id number] 0-120 / / [id number] Medtronic Inc Everflex Entrust 8mm 60mm 120cm Self Expand Triaxial Low Profile - [id number] Implanted:Qty: 1 on 06/13/2023 by Luke Pablo MD at [facility] Medtronic Inc 01/16/2026 [id number] 0-120 / / [id number] Medtronic Inc Everflex Od7 Mm L30 Mm L120 Cm Self Expand Delivery Catheter System Spiral Cell Peak To Peak Connection Node Peripheral Stent Vascular Accepts .035 In Guidewire 6 Fr Introducer Sheath 5. Implanted:Qty: 1 on 06/13/2023 by Luke Pablo MD at [facility] Medtronic Inc 01/03/2026 [id number] 0-120 / / [id number] Cordis Mynxgrip 6-7fr Balloon Catheter Integrate Sealant Lock Latex Free [id number] - [id number] Implanted:Qty: 1 on 06/13/2023 by Luke Pablo MD at [facility] Cord 08/03/2023 [id number] / / [id number] Procedures Procedure Name Priority Date/Time Associated Diagnosis Comments EGFR Routine 06/19/2023 5:10 AM COLOR MAKER FORMULATOR HEMOGLOBIN A1C STAT 05/14/2023 5:27 AM COLOR MAKER FORMULATOR CTA ABDOMINAL AORTA AND BILATERAL ILIOFEMORAL RUNOFF Routine 08/21/2013 2:17 PM CDT from Last 3 Months or Most Recently Relevant to Health Maintenance Results * eGFR (06/19/2023 5:10 AM COLOR MAKER FORMULATOR) Pathologist [facility] eGFR 33 mL/min/1. 73 m2 SHERYL [...] last reviewed 2021. Blood 06/19/2023 5:10 AM COLOR MAKER FORMULATOR 06/19/2023 5:30 AM COLOR MAKER FORMULATOR us Leatha Hassan NP LAB BLOOD ORDERABLES F inal Result SHERYL [address] Department [place] [address] * (ABNORMAL) Hemoglobin A1c (05/14/2023 5:27 AM COLOR MAKER FORMULATOR) Hgb A1C 6.5(H) 4.0 - 5.6 % SHERYL VIVEROS Estimated Average Glucose 140 mg/dL SHERYL VIVEROS Comment: The ADA recommends reporting an estimated Average Glucose (eAG) with all Hemoglobin A1c results using the equation derived from a study of 507 normal and diabetic adults. Minority populations were underrepresented and children were not included. (Diabetes Care 31:5420-4507, 2008). The eAG is not equivalent to a fasting glucose. Blood 05/14/2023 5:27 AM COLOR MAKER FORMULATOR 05/14/2023 5:30 AM COLOR MAKER FORMULATOR us Lc Dunbar MD LAB BLOOD ORDERABLES Final Result SHERYL [address] [facility] Department [place] [address] * CTA Abdominal Aorta And [...] this written report and agrees with it. [facility]# Date Time Exam [id number] Aug 21, 2013 14:17:[address] Angio Abd & AIF wwo con [...] gallbladder were communicated to Dr. Parker's medical videographer Lisa Cowan by Dr. Schaffer at 4:00 [...] this written report and agrees with it. [facility]# Date Time Exam [id number] Aug 21, 2013 14:17:[address] Angio Abd & AIF wwo con [...] gallbladder were communicated to Dr. Parker's medical videographer Lisa Cowan by Dr. Schaffer at 4:00 [...] Advance Directives For more information, please contact: [phone] * Full Code (Latest Code Status on File) Date Activated Date Inactivated Comments 06/12/2023 8:49 AM 06/19/2023 8:52 PM * Full Code Date Activated Date Inactivated Comments 05/14/2023 3:50 AM 05/21/2023 12:01 AM Care Teams Actuarial Technician Relationship Specialty Start Date End Date Ace Tavares DO PCP - General Internal Medicine 02/22/19 Becky Cisneros MD Log Chain Feeder Cardiovascular Disease 03/19/19
--- NOTE | 2024-07-18 17:48 | P.HP_ITS ---
H&P: HPI History of Present Illness Date/Time: 07/18/24 17:48 Chief Complaint: Uncontrolled dyspnea. Narrative: 79-year-old gentleman was admitted [facility] July 13 for dyspnea. He was discharged just a few days prior after being treated for pneumonia. He was readmitted with a diagnosis of flu. He does have stage 4 chronic kidney disease with chronic fluid overload. He has underlying diagnoses of CHF COPD type 2 diabetes and coronary artery disease, status post in in STEMI with stents placed in 2022 and June,. Despite appropriate treatment he has continued to require BiPAP. He does not want intubation. He is on BiPAP with an FiO2 of 36%. He wants to be off the BiPAP and kept comfortable. He understands that without the BiPAP and other support port of treatment he will likely within hours to days. Review of Systems Review of Systems: ROS unobtainable: Yes unobtainable due to medical condition (too dyspneic) PMFSH Past Medical History Medical History History of NV (myocardial infarction) Chronic kidney disease, stage 4 (severe) Aortic stenosis Chronic respiratory failure with hypoxia, on home oxygen therapy Gastroesophageal reflux disease 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 Hyperlipidemia Chronic obstructive pulmonary disease Deep venous thrombosis Coronary artery disease Carotid stenosis, bilateral Depression due to physical illness Tobacco dependence Non-ST elevation myocardial infarction (NSTEMI) 05/08/2023 and 06/11/2023 Type 2 diabetes mellitus Emphysema lung Allergies Anxiety Peripheral artery disease Hypertension Renal artery stenosis Surgical History Surgical History History of cataract extraction History of coronary artery stent placement History of cardiac catheterization History of tonsillectomy Family History Family History Mother Family history of diabetes mellitus in first degree relative Cerebrovascular accident Father Family history of emphysema Sibling Family history of malignant neoplasm Social History Social History (Updated 07/18/24 @ 17:52 by Lucio Jeong MD) Social History: Surrogate medical decision maker: Cheryledna Duval, spouse. Code status: DNR. Smoking packs per day: 0.5 Smoking cigarettes per day: 10.0 Years smoked: 40 Smoking pack-years: 20.00 Smoking status: Former smoker Tobacco type: cigarettes Alcohol intake: never Substance use: never Substance use type: does not use Do You Feel Safe in your Home?: Yes Lack of Transportation: No Lack of Food: Never True Current Housing: I Have Housing Concerned About Future Housing: No Difficulty Paying Gas/Electric Bills: No Difficulty Paying for Meds: No Currently Unemployed: No Education: High School Diploma/GED Difficulty w/ Childcare or Family Care: No Living arrangements: with family Occupation/Education: retired Spiritual care concerns: No Meds Home Medications and Allergies Home Medications ?Medication ?Instructions ?Recorded ?Confirmed ?Type aspirin 81 mg tablet,delayed 81 mg PO DAILY 12/04/19 07/12/24 History release (Adult Low Dose Aspirin) blood sugar diagnostic (Accu-Chek #100 ea 09/22/20 07/12/24 Rx Flory Plus test strips) albuterol sulfate 90 mcg/actuation 2 puff inhalation TID PRN 05/08/23 07/12/24 History aerosol inhaler Shortness Of Breath Or Wheezing ticagrelor 90 mg tablet 90 mg PO Q12H #60 tabs 09/06/23 07/12/24 Rx glipizide 5 mg tablet 5 mg PO DAILY #90 tabs 02/03/24 07/12/24 Rx cholecalciferol (vitamin D3) 50 50 mcg PO HS 02/14/24 07/12/24 History mcg (2,000 unit) capsule albuterol sulfate 1.25 mg/3 mL 1.25 mg (3 mL) inhalation Q4-6H 02/28/24 07/12/24 Rx solution for nebulization PRN shortness of breath or wheezing #90 mL tamsulosin 0.4 mg capsule 0.4 mg PO DAILY #90 caps 05/08/24 07/12/24 Rx pantoprazole 40 mg tablet,delayed 40 mg PO DAILY #90 tabs 05/14/24 07/12/24 Rx release metoprolol succinate 25 mg 25 mg PO Q12H #180 tabs 05/18/24 07/12/24 Rx tablet,extended release 24 hr (Toprol XL) clonazepam 0.5 mg tablet 0.5 mg PO Q12H PRN anxiety 06/19/24 07/12/24 History amlodipine 10 mg tablet 10 mg PO DAILY #30 tabs 06/24/24 07/12/24 Rx hydralazine 25 mg tablet 25 mg PO BID #60 tabs 06/24/24 07/12/24 Rx insulin aspart U-100 100 unit/mL 1 - 2 unit subcut HS #10 mL 06/24/24 07/12/24 R x subcutaneous solution (Novolog U-100 Insulin aspart) insulin aspart U-100 100 unit/mL 2 - 5 unit subcut TIDWM #10 mL 06/24/24 07/12/24 Rx subcutaneous solution (Novolog U-100 Insulin aspart) empagliflozin 25 mg tablet 25 mg PO QAM #30 tabs 06/25/24 07/12/24 Rx (Jardiance) isosorbide mononitrate 20 mg tablet See Rx Instructions .Route 06/25/24 07/12/24 Rx .COMPLEX #180 tabs furosemide 80 mg tablet 80 mg PO DAILY #30 tabs 07/06/24 07/12/24 Rx atorvastatin 40 mg tablet See Rx Instructions .Route 07/09/24 07/12/24 Rx .COMPLEX #90 tabs Allergies Allergy/AdvReac Type Severity Reaction Status Date / Time No Known Allergies Allergy Unknown Verified 06/19/24 17:59 Exam Narrative: GENERAL: Gaunt elderly gentleman lying in hospital bed with severe dyspnea and anxiety. HEENT: PERRL, sclerae nonicteric, pharyngeal mucosa pink and intact NECK: No JVD CHEST: Coarse breath sounds with scattered expiratory wheezes. Tachypneic. HEART: NL S1/S2, regular, no murmur audible ABDOMEN: BS+, soft, nontender, no mass, no bruits EXTREMITIES: 2+ lower leg and ankle edema with pitting. NEUROLOGIC: CN intact and symmetric to inspection. MUSCULOSKELETAL: No gross deformity to visual inspection. PSYCH: Alert. Oriented to person, place, and time. Assessment and Plan Assessment and plan (1) Hospice care: Code(s): Z51.5 - Encounter for palliative care Status: Acute Assessment and Plan: * Meet inpatient hospice criteria due to requiring continuous IV hydromorphone for control of dyspnea. * P.r.n. palliative regimen ordered. * 07/18/2024 discussed care and prognosis with patient and family at bedside. (2) Acute and chronic respiratory failure with hypoxia: Code(s): J96.21 - Acute and chronic respiratory failure with hypoxia Status: Acute (3) 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: Code(s): I50.40 - Unspecified combined systolic (congestive) and diastolic (congestive) heart failure Status: Chronic (4) Chronic obstructive pulmonary disease: Qualifiers: COPD type: unspecified COPD Qualified Code(s): J44.9 - Chronic obstructive pulmonary disease, unspecified Code(s): J44.9 - Chronic obstructive pulmonary disease, unspecified Status: Acute (5) Aortic stenosis: Code(s): I35.0 - Nonrheumatic aortic (valve) stenosis Status: Acute (6) Coronary artery disease: Code(s): I25.10 - Atherosclerotic heart disease of [place] coronary artery without angina pectoris Status: Acute (7) Influenza: Code(s): J11.1 - Influenza due to unidentified influenza virus with other respiratory manifestations Status: Acute (8) Type 2 diabetes mellitus: Qualifiers: Diabetes mellitus clinic administrator insulin use: without prison use Diabetes mellitus complication status: with kidney complications Diabetes mellitus complication detail: with chronic kidney disease Chronic kidney disease stage: stage 4 (severe) Qualified Code(s): E11.22 - Type 2 diabetes mellitus with diabetic chronic kidney disease; N18.4 - Chronic kidney disease, stage 4 (severe) Code(s): E11.9 - Type 2 diabetes mellitus without complications Status: Chronic (9) Chronic kidney disease, stage 4 (severe): Code(s): N18.4 - Chronic kidney disease, stage 4 (severe) Status: Chronic Hospitalist MIPS Advance Care Plan I have confirmed that the patient's Advanced Care Plan is present, code status is documented, or surrogate decision maker is listed in patient medical record.: Yes Medication Reconciliation The patient is not eligible for med reconciliation; the patient is in a emergent medical situation where delaying treatment would jeopardize the patients health.: Yes
[2024-07-18 18:30] VITALS: PULSE 91; RESP 24
[2024-07-18] MEDS: HYDROmorphone HCL/PF (*CRX) 50 MG in SODIUM CHLORIDE 0.9% IV 95 ML IV CONT (18:30)
[2024-07-18] MEDS: HYDROmorphone HCL INJ (*CRX) 1 MG/ML SYR 0.5 MG IV PUSH ×2 (19:03→22:07)
[2024-07-18] MEDS: diazePAM INJ (*CRX) 10 MG/2 ML SYRINGE 5 MG IV PUSH (19:04)
[2024-07-18 20:00] VITALS: BP 116/51; PULSE 85; RESP 24; TEMP 37.2; O2SAT 86; BMI 24.1
--- NOTE | 2024-07-18 21:40 | PC.NURSE ---
This patient, Silvano Duval, was transferred to [[id number] ] on 07/18/24 at 2141. Personal belongings sent with patient. Report given to [ ]. Appropriate documentation sent with patient.
[2024-07-18] MEDS: GLYCOPYRROLATE INJ (*SP) 0.2 MG/ML VIAL 0.1 MG IV PUSH (22:08)
[2024-07-18 22:22] VITALS: BP 112/50; PULSE 87; RESP 16; TEMP 36.4; O2SAT 91
[2024-07-18 22:30] VITALS: O2SAT 91
[2024-07-19] MEDS: diazePAM INJ (*CRX) 10 MG/2 ML SYRINGE 5 MG IV PUSH ×3 (00:02→09:58)
[2024-07-19] MEDS: HYDROmorphone HCL INJ (*CRX) 1 MG/ML SYR 0.5 MG IV PUSH (00:02)
--- NOTE | 2024-07-19 01:15 | PC.NURSE ---
Dr. Murillo notified, pt is using accessary muscles to breath, increased signs discomfort with breathing, heavy heaving currently on 8L oxygen for comfort. Orders given to increase Dilaudid IV continuous from 0.25 mg to 0.5 mg and Dilaudid IV Push 0.5 mg to 1 mg. Will continue to monitor measures for comfort.
[2024-07-19 01:25] VITALS: PULSE 81; RESP 12
[2024-07-19] MEDS: HYDROmorphone HCL/PF (*CRX) 50 MG in SODIUM CHLORIDE 0.9% IV 95 ML IV CONT (01:25)
[2024-07-19] MEDS: HYDROmorphone HCL INJ (*CRX) 1 MG/ML SYR IV PUSH ×3 (02:25→08:19)
[2024-07-19 08:00] VITALS: O2SAT 80
--- NOTE | 2024-07-20 10:42 | PM.DDS ---
Discharge Summary Date and Time Date of : 07/19/24 Time of : 11:26 Provider Pronounced By: 2 RNs Name of First RN That Pronounced: Aby Sneed RN Name of Second RN That Pronounced: Lorraine Cabello RN Probable Cause of Probable Cause of : acute on chronic respiratory failure due to influenza superimposed on chf and copd Summary Hospital Course: Admitted to inpatient hospice service for symptoms management. Medications were titrated to comfort. Mr. Duval peacefully. Additional Data Confirmation of as documented by pronouncing clinician: Pupillary Reflex, Palpable Pulses, Response to Stimuli, Heart Tones and Breath Sounds Name of Provider Notified: Dr. Lucio Jeong Time Provider Notified: 12:46 Provider Requests Autopsy: No Family Requests Autopsy: No [employer] Service Unit Operator Notified: Yes Date [facility] Notified of : 07/19/24 Time [facility] Notified of : 12:08
== END 2024-07-19 11:26 | disposition expired | DRG 951 ==
LOC: ANHIMU 17:36 → ANH3MEDSUR 21:40
PROVIDERS: Admitting Provider Internal Medicine; PCP Internal Medicine; Visit Provider Internal Medicine
DX: Z51.5 Encounter for palliative care (principal); J96.21 Acute and chronic respiratory failure with hypoxia; I50.43 Acute on chronic combined systolic (congestive) and diastolic (congestive) heart failure; N18.4 Chronic kidney disease, stage 4 (severe); E44.1 Mild protein-calorie malnutrition; N17.9 Acute kidney failure, unspecified; I13.0 Hypertensive heart and chronic kidney disease with heart failure and stage 1 through stage 4 chronic kidney disease, or unspecified chronic kidney disease; E11.22 Type 2 diabetes mellitus with diabetic chronic kidney disease; Z68.24 Body mass index [BMI] 24.0-24.9, adult; J44.9 Chronic obstructive pulmonary disease, unspecified; I35.0 Nonrheumatic aortic (valve) stenosis; I25.10 Atherosclerotic heart disease of native coronary artery without angina pectoris; J11.1 Influenza due to unidentified influenza virus with other respiratory manifestations; I73.9 Peripheral vascular disease, unspecified; E78.5 Hyperlipidemia, unspecified; D63.1 Anemia in chronic kidney disease; I25.2 Old myocardial infarction; Z95.5 Presence of coronary angioplasty implant and graft; Z99.81 Dependence on supplemental oxygen; Z87.891 Personal history of nicotine dependence; Z66 Do not resuscitate; Z79.82 Long term (current) use of aspirin
CPT/HCPCS: A9270; J1171; J1596; J3360